=== PATIENT | female | born 1955 | race African-American/Black ===

== ENCOUNTER 2017-10-08 15:53 | Inpatient (IN) | payer OTHER, MEDICARE ==
[~2017-10-08] VITALS: Ht 180.3 cm; Wt 134.5 kg
[~2017-10-08 15:53] MED LIST: ALLO300 PO; AMBI12.5 PO; AMLO5TAB22 PO; ATEN-102 PO; BENZ100 PO; CALC0.25 PO; CYCL1PAK PO; FURO20 PO; GABA600T PO; LEVO.15 PO; NORC7.5T PO; OMEP20TA39 PO; POTA25TA2 PO; VITA100018 PO
[2017-10-08 15:55] VITALS: BP 188/78; PULSE 84; RESP 20; TEMP 98.7; O2SAT 93
[2017-10-08] MEDS ORDERED: CYCL10TA PO (16:56)
[2017-10-08] MEDS ORDERED: HYDR-2376 PO (16:56)
[2017-10-08] MEDS ORDERED: LEVO137T2 PO (16:56)
[2017-10-08] MEDS ORDERED: AMLO10TA2 PO (16:56)
[2017-10-08] MEDS ORDERED: ALLO100T PO (16:56)
[2017-10-08] MEDS ORDERED: LYRI75CA PO (16:56)
[2017-10-08] MEDS ORDERED: OMEP20TA93 PO (16:56)
[2017-10-08] MEDS ORDERED: CALC0.25 PO (16:56)
[2017-10-08] MEDS ORDERED: ZOLP10TA3 PO (16:56)
[2017-10-08] MEDS ORDERED: vitamind (16:56)
[2017-10-08] MEDS ORDERED: SODIUM CHLORIDE 0.9% FLUSH 10 ML FLUSH IVF PRN (17:00)
[2017-10-08 17:04] VITALS: O2SAT 97
--- NOTE | 2017-10-08 17:10 | PD ---
HPI Chief Complaint: Respiratory Symptoms Time Seen by Provider: 16:45 Travel History International Travel<30 days: No Contact w/Intl Traveler<30days: No Traveled to known affect area: No History of Present Illness HPI 61-year-old female here complaining of dyspnea. Symptom onset 1 week ago. It seems to be somewhat worse with exertion. No alleviating factors. She has never had this problem before. She endorses a slight cough. She endorses chronic epigastric pain which she relates to gastritis. Denies new abdominal pain, nausea or vomiting, chest pain, fevers or chills, recent travel, lower extremity edema. No other complaints. 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 Cholecystectomy: Yes (FEBRUARY 2008- DR BURNS) Endocrine Surgery: Yes (THYROIDECTOMY) Joint Replacement: Yes (RIGHT KNEE) Oral Surgery: Yes (WISDOM TEETH) Other Surgery: Yes (THYOIDECTOMY;SPLEENECTOMY) Social History Alcohol Use: No Tobacco Use: No Substance Use: No Allergies-Medications (Allergen,Severity, Reaction): Coded Allergies: doxycycline (Unverified Allergy, Severe, Anaphylaxis, 10/08/17) sulfamethoxazole (Unverified Allergy, Severe, Anaphylaxis, 10/08/17) trimethoprim (Unverified Allergy, Severe, Anaphylaxis, 10/08/17) Reported Meds & Prescriptions Reported Meds & Active Scripts Active Reported Zolpidem (Zolpidem Tartrate) 10 Mg Tab 10 Mg PO HS PRN Flexeril (Cyclobenzaprine HCl) 10 Mg Tab 10 Mg PO BID Hydrocodone-Acetaminophen 7.5-300 Mg Tab 1 Tab PO Q4H PRN Lyrica (Pregabalin) 75 Mg Cap 75 Mg PO DAILY [vitamind] Calcitriol 0.25 Mcg Cap 0.25 Mcg PO DAILY Allopurinol 100 Mg Tab 100 Mg PO DAILY Amlodipine (Amlodipine Besylate) 10 Mg Tab 10 Mg PO DAILY Levothyroxine (Levothyroxine Sodium) 137 Mcg Tab 137 Mcg PO DAILY Omeprazole 20 Mg Tab 20 Mg PO DAILY Review of Systems Except as stated in HPI: all other systems reviewed are Neg Physical Exam Narrative GENERAL: Well-nourished female in no acute distress SKIN: Warm and dry. HEAD: Atraumatic. Normocephalic. EYES: Pupils equal and round. No scleral icterus. No injection or drainage. ENT: No nasal bleeding or discharge. Mucous membranes pink and moist. NECK: Trachea midline. No JVD. CARDIOVASCULAR: Regular rate and rhythm. No murmur appreciated. RESPIRATORY: No accessory muscle use. Clear to auscultation. Breath sounds equal bilaterally. GASTROINTESTINAL: Abdomen soft, non-tender, nondistended. Hepatic and splenic margins not palpable. MUSCULOSKELETAL: No obvious deformities. Trace tibial edema bilaterally. NEUROLOGICAL: Awake and alert. No obvious cranial nerve deficits. Motor grossly within normal limits. Normal speech. PSYCHIATRIC: Appropriate mood and affect; insight and judgment normal. Data Data Last Documented VS Vital Signs Date Time Temp Pulse Resp B/P (MAP) Pulse Ox O2 Delivery O2 Flow Rate FiO2 10/08/17 17:05 84 18 97 Nasal Cannula 2.00 10/08/17 17:04 10/08/17 15:55 98.7 Orders Orders Electrocardiogram (10/08/17 ) Complete Blood Count With Diff (10/08/17 16:54) Comprehensive Metabolic Panel (10/08/17 16:54) B-Type Natriuretic Peptide (10/08/17 16:54) D-Dimer (10/08/17 16:54) Magnesium (Mg) (10/08/17 16:54) Ckmb (Isoenzyme) Profile (10/08/17 16:54) Troponin I (10/08/17 16:54) Iv Access Insert/Monitor (10/08/17 16:54) Electrocardiogram (10/08/17 16:54) Ecg Monitoring (10/08/17 16:54) Oximetry (10/08/17 16:54) Oxygen Administration (10/08/17 16:54) Chest, Single Ap (10/08/17 16:54) Sodium Chloride 0.9% Flush (Ns Flush) (10/08/17 17:00) Lipase (10/08/17 16:54) CKMB (10/08/17 17:19) CKMB% (10/08/17 17:19) Ct Pulmonary Angiogram (10/08/17 18:29) Lorazepam Inj (Ativan Inj) (10/08/17 19:00) Furosemide Inj (Lasix Inj) (10/08/17 20:15) Ceftriaxone Inj (Rocephin Inj) (10/08/17 20:15) Azithromycin Inj (Zithromax Inj) (10/08/17 20:15) Iodixanol 320 Inj (Rad Ct) (Visipaque 32 (10/08/17 19:50) Furosemide Inj (Lasix Inj) (10/08/17 20:15) Labs Laboratory Tests Test 10/08/17 17:19 10/08/17 18:15 D-Dimer Quantitative (PE/DVT) 0.95 MG/L FEU Blood Urea Nitrogen 23 MG/DL Creatinine 1.71 MG/DL Random Glucose 81 MG/DL Total Protein 9.0 GM/DL Albumin 3.1 GM/DL Calcium Level 8.6 MG/DL Magnesium Level 1.7 MG/DL Alkaline Phosphatase 99 U/L Aspartate Amino Transf (AST/SGOT) 52 U/L Alanine Aminotransferase (ALT/SGPT) 26 U/L Total Bilirubin 0.5 MG/DL Sodium Level 137 MEQ/L Potassium Level 5.8 MEQ/L Chloride Level 105 MEQ/L Carbon Dioxide Level 25.0 MEQ/L Anion Gap 7 MEQ/L Estimat Glomerular Filtration Rate 37 ML/MIN Total Creatine Kinase 242 U/L Creatine Kinase MB 0.8 NG/ML Creatine Kinase MB % 0.3 % Troponin I 0.03 NG/ML B-Type Natriuretic Peptide 221 PG/ML Lipase 117 U/L White Blood Count 15.7 TH/MM3 Red Blood Count 2.54 MIL/MM3 Hemoglobin 8.6 GM/DL Hematocrit 26.6 % Mean Corpuscular Volume 104.5 FL Mean Corpuscular Hemoglobin 34.0 PG Mean Corpuscular Hemoglobin Concent 32.5 % Red Cell Distribution Width 16.9 % Platelet Count 246 TH/MM3 Mean Platelet Volume 12.5 FL CBC Comment AUTO DIFF Differential Total Cells Counted 100 Neutrophils % (Manual) 57 % Band Neutrophils % 7 % Lymphocytes % 25 % Monocytes % 6 % Eosinophils % 2 % Basophils % 2 % Neutrophils # (Manual) 10.2 TH/MM3 Metamyelocytes 1 % Nucleated Red Blood Cells 6 /100 WBC Differential Comment FINAL DIFF MANUAL Platelet Estimate NORMAL Platelet Morphology Comment GIANT Target Cells 2+ MDM Medical Decision Making Medical Screen Exam Complete: Yes Emergency Medical Condition: Yes Medical Record Reviewed: Yes Interpretation(s) EKG sinus rhythm Chest x-ray CONCLUSION: Mild congestive heart failure suspected. Small effusions are seen. Differential Diagnosis New-onset CHF, bronchitis, pneumonia, reactive airway disease, pulmonary embolism, spontaneous pneumothorax, pericardial effusion, pleural effusion Narrative Course The patient was placed on a monitor and pulse oximetry. Twelve-lead EKG obtained. Plan is for lab work, chest x-ray. Laboratory is notable for WBC count 15.7, hemoglobin is 8.6. She reports history of chronic anemia, she reports that 8.6 is around her baseline. She denies any hematemesis, hematochezia, melena. Hemoccult negative. BNP is mildly elevated at 221. Potassium is 5.8 however this was a hemolyzed specimen and spurious result. D-dimer was 0.[address] pulmonary angiogram was ordered. CT pulmonary angiogram is suggestive of pulmonary edema. The patient's oxygen saturation is 89 and 90% on room air while conversing, 96% on 2 L of nasal cannula. At this point in time the plan is to give the patient a 20 mg IV dose of Lasix, with consideration to her kidney function. She will be given azithromycin and Rocephin as well given her leukocytosis with bandemia and cough. She will be admitted for further evaluation and treatment. Diagnosis Primary Impression: Dyspnea Qualified Codes: R06.00 - Dyspnea, unspecified Additional Impressions: Pulmonary edema Qualified Codes: J81.0 - Acute pulmonary edema Leukocytosis Qualified Codes: D72.829 - Elevated white blood cell count, unspecified Hypoxia Admitting Information Admitting Physician Requests: it Chema Hewitt Oct 08, 2017 17:10
--- NOTE | 2017-10-08 17:43 | RADRPT ---
EXAM DATE/TIME: 10/08/2017 17:15 [facility] COMPARISON: No previous studies available for comparison. INDICATIONS : Shortness of breath. MEDICAL HISTORY : None. SURGICAL HISTORY : None. ENCOUNTER: Initial ACUITY: 1 day PAIN SCORE: 0/10 LOCATION: Bilateral chest FINDINGS: There are small bilateral effusions suspected, cardiomegaly and pulmonary vasculature ominence. No co nsolidation. Aortic calcification and degenerative changes of the spine. CONCLUSION: Mild congestive heart failure suspected. Small effusions are seen. Sascha Aparicio MD on October 08, 2017 at 17:41 Board Certified Radiologist. This report was verified electronically.
[2017-10-08 18:08] LABS: ALKALINE PHOSPHATASE 99 U/L (45-117); ALT (GPT) 26 U/L (10-53); ANION GAP 7 MEQ/L (5-15); AST (GOT) 52 U/L (15-37); BLOOD UREA NITROGEN 23 MG/DL (7-18); CHLORIDE 105 MEQ/L (98-107); CREATINE KINASE 242 U/L (26-192); GLOMERULAR FILTRATION RATE 37 ML/MIN (>89); MAGNESIUM 1.7 MG/DL (1.5-2.5); POTASSIUM 5.8 MEQ/L (3.5-5.1); SODIUM (NA) 137 MEQ/L (136-145); TOTAL BILIRUBIN ADULT 0.5 MG/DL (0.2-1.0)
[2017-10-08 18:21] LABS: CKMB 0.8 NG/ML (0.5-3.6)
[2017-10-08 18:27] LABS: HEMATOCRIT 26.6 % (35.0-46.0); MEAN CELL VOLUME 104.5 FL (80.0-100.0); MEAN CORPUSCULAR HGB CONC 32.5 % (32.0-36.0); PLATELET COUNT 246 TH/MM3 (150-450); RED BLOOD COUNT 2.54 MIL/MM3 (4.00-5.30); RED CELL DISTRIBUTION WIDTH 16.9 % (11.6-17.2); WHITE BLOOD COUNT 15.7 TH/MM3 (4.0-11.0)
[2017-10-08] MEDS ORDERED: LORazepam 2 MG/ML VIAL IV PUSH ONE (19:00)
[2017-10-08 19:19] LABS: HEMO FLAGS AUTO DIFF
[2017-10-08 19:24] LABS: BANDS 7 % (0-6); BASOPHILS 2 % (0-2); CORRECTED NUCLEATED RBC 6 /100 WBC (0-0); EOSINOPHILS 2 % (0-4); METAMYELOCYTES 1 % (0-1); NEUTROPHIL # MANUAL DIFF 10.2 TH/MM3 (1.8-7.7); POLYS (SEG NEUTROPHILS) 57 % (16-70); WBC DIFF SAMPLE 100
[2017-10-08 19:25] LABS: PLATELET ESTIMATE SMEAR NORMAL (NORMAL); PLATELET MORPHOLOGY GIANT (NORMAL); SCAN/DIFF FINAL DIFF MANUAL; TARGET CELLS 2+ (NORMAL)
[2017-10-08] MEDS ORDERED: IOHEXOL 350 MG/ML 10 ML VIAL (for RAD DIAG) IVCONTRAST ONE (19:44)
[2017-10-08] MEDS ORDERED: IODIXANOL 320 MG/ML 10 ML VIAL (for Rad CT) IVCONTRAST ONE (19:50)
--- NOTE | 2017-10-08 20:00 | RADRPT ---
EXAM DATE/TIME: 10/08/2017 19:24 [facility] COMPARISON: CHEST SINGLE AP, October 08, 2017, 17:15. INDICATIONS : Shortness of breath for ten days. IV CONTRAST: 46 cc Visipaque (iodixanol) IV RADIATION DOSE: 22.98 CTDIvol (mGy) MEDICAL HISTORY : Cardiovascular disease. hodgkins disease, diabetes, hypertension SURGICAL HISTORY : Splenectomy. Thyroidectomy.Cholecystectomy. ENCOUNTER: Initial ACUITY: 1 day PAIN SCALE: 0/10 LOCATION: Bilateral chest TECHNIQUE: Volumetric scanning of the chest was performed using a pulmonary embolism protocol MIP images were re constructed. Using automated exposure control and adjustment of the mA and/or kV according to patien t size, radiation dose was kept as low as reasonably achievable to obtain optimal diagnostic quality images. DICOM format image data is available electronically for review and comparison. Follow-up recommendations for detected pulmonary nodules are based at a minimum on nodule size and pa tient risk factors according to Fleischner Society Guidelines. FINDINGS: PULMONARY ARTERIES: No filling defects are seen in the pulmonary arteries through the segmental level. LUNGS: Moderate severity bilateral pulmonary parenchymal groundglass opacity. No focal consolidation. PLEURAE: Small bilateral pleural effusions. MEDIASTINUM: There is good visualization of the great vessels of the middle mediastinum. No evidence of mediastin al or hilar adenopathy/mass. MUSCULOSKELETAL: Within normal limits for patient age. MISCELLANEOUS: The visualized upper abdominal organs demonstrate no acute abnormality. CONCLUSION: 1. No evidence of pulmonary embolus. 2. Bilateral pulmonary groundglass opacity and small bilateral pleural effusions. Prominence of centr al pulmonary vasculature. Findings suggest pulmonary edema. John Workman MD on October 08, 2017 at 19:49 Board Certified Radiologist. This report was verified electronically.
[2017-10-08] MEDS ORDERED: AZITHROMYCIN INJ 500 MG in SODIUM CHLOR 0.9% 250 ML INJ 250 ML IV ONE (20:15)
[2017-10-08] MEDS ORDERED: cefTRIAXone INJ 1,000 MG in SODIUM CHLORIDE 0.9% INJ 100 ML IV ONE (20:15)
[2017-10-08] MEDS ORDERED: FUROSEMIDE 40 MG/4 ML VIAL IV PUSH ONE (20:15)
[2017-10-08] MEDS ORDERED: FUROSEMIDE 20 MG/2 ML VIAL IV PUSH ONE (20:15)
--- NOTE | 2017-10-08 20:37 | HHI.HP ---
[facility] Hermelindo Rodriguez Do, MD Admission Diagnosis dyspnea, hypoxia, pulmonary edema, leukocytosis Diagnoses: (1) Pulmonary edema Diagnosis: Principal (2) Hypoxia Diagnosis: Principal (3) Leukocytosis Diagnosis: Principal (4) BRANDT (acute kidney injury) Diagnosis: Principal (5) HTN (hypertension) Diagnosis: Principal (6) Hyperkalemia Diagnosis: Principal (7) Anemia Diagnosis: Principal Travel History International Travel<30 Days: No Contact w/Intl Traveler <30 Da: No Traveled to Known Affected Are: No History of Present Illness This is a 61-year-old female with a PMH of HTN, Hyperlipidemia, Gout, Hodgkin's Disease in Remission, CKD and Chronic Anemia who presented to the ER w/ complaints of SOB for approx 1wk. States symptoms have gotten progressively more severe, unable to lay flat. Denies fever, chills, or chest pain but reports occasional non-productive cough. No sick contacts. On arrival, BP 188/ 78, HR 84, O2 sat 93% on RA, Afebrile. While in ER, O2 sat dropped to 89% on RA. Currently 97% on 2L NC. WBC 15.7, bandemia of 7%. Hemoglobin 8.6, previously 9.5 on 02/07/13. K+ 5.8-hemolysis noted. Creatinine 1.71, previously 1.34 on 02/07/13. Trop negative. BNP 221. Lipase 117. D-dimer 0.95. CXR with mild CHF, small effusions. CTA Pulm w/ pulmonary edma and bilateral groundglass opacity, no PE. No h/o CHF per patient. Follows only w/ PCP and Dr. Salmon w/ Nephrology. S/p Lasix 60mg IV and Rocephin/Zithro in ER. Review of Systems Except as stated in HPI: all other systems reviewed are Neg ROS: 14 point review of systems otherwise negative. Past Family Social History Past Medical History PMH: HTN, Hyperlipidemia, Gout, Hodgkin's Disease in Remission, CKD and Chronic Anemia Past Surgical History PAST SURGICAL HISTORY: Splenectomy, Thyroidectomy, Right Knee Replacement, Pratt Tooth Extraction Allergies: Coded Allergies: doxycycline (Unverified Allergy, Severe, Anaphylaxis, 10/08/17) sulfamethoxazole (Unverified Allergy, Severe, Anaphylaxis, 10/08/17) trimethoprim (Unverified Allergy, Severe, Anaphylaxis, 10/08/17) Family History PAST FAMILY HISTORY: Reviewed. No h/o DM or CAD Social History PAST SOCIAL HISTORY: Negative for alcohol, tobacco or drugs. Physical Exam Vital Signs Vital Signs Date Time Temp Pulse Resp B/P (MAP) Pulse Ox O2 Delivery O2 Flow Rate FiO2 10/08/17 17:05 84 18 97 Nasal Cannula 2.00 10/08/17 17:04 97 Nasal Cannula 2.00 10/08/17 17:04 97 Nasal Cannula 2.00 10/08/17 15:55 98.7 84 20 188/78 (114) 93 Room Air Physical Exam PE: GENERAL: Extremely pleasant middle-aged black female in no acute distress. HEENT: PERRLA, EOMI. No scleral icterus or conjunctival pallor. No lid lag or facial droop. CARDIOVASCULAR: Regular rate and rhythm. No obvious murmurs to auscultation. No chest tenderness to palpation. RESPIRATORY: No obvious rhonchi or wheezing. Clear to auscultation. Breath sounds equal bilaterally. GASTROINTESTINAL: Abdomen soft, non-tender, nondistended. BS normal. MUSCULOSKELETAL: Extremities without clubbing, cyanosis. 1+ edema bilaterally. No obvious deformities. NEUROLOGICAL: Awake, alert and oriented x4. No focal neurologic deficits. Moving both upper and lower extremities spontaneously. Laboratory Laboratory Tests Test 10/08/17 17:19 10/08/17 18:15 D-Dimer Quantitative (PE/DVT) 0.95 Blood Urea Nitrogen 23 Creatinine 1.71 Random Glucose 81 Total Protein 9.0 Albumin 3.1 Calcium Level 8.6 Magnesium Level 1.7 Alkaline Phosphatase 99 Aspartate Amino Transf (AST/SGOT) 52 Alanine Aminotransferase (ALT/SGPT) 26 Total Bilirubin 0.5 Sodium Level 137 Potassium Level 5.8 Chloride Level 105 Carbon Dioxide Level 25.0 Anion Gap 7 Estimat Glomerular Filtration Rate 37 Total Creatine Kinase 242 Creatine Kinase MB 0.8 Creatine Kinase MB % 0.3 Troponin I 0.03 B-Type Natriuretic Peptide 221 Lipase 117 White Blood Count 15.7 Red Blood Count 2.54 Hemoglobin 8.6 Hematocrit 26.6 Mean Corpuscular Volume 104.5 Mean Corpuscular Hemoglobin 34.0 Mean Corpuscular Hemoglobin Concent 32.5 Red Cell Distribution Width 16.9 Platelet Count 246 Mean Platelet Volume 12.5 CBC Comment AUTO DIFF Differential Total Cells Counted 100 Neutrophils % (Manual) 57 Band Neutrophils % 7 Lymphocytes % 25 Monocytes % 6 Eosinophils % 2 Basophils % 2 Neutrophils # (Manual) 10.2 Metamyelocytes 1 Nucleated Red Blood Cells 6 Differential Comment FINAL DIFF MANUAL Platelet Estimate NORMAL Platelet Morphology Comment GIANT Target Cells 2+ Result Diagram: 10/08/17 1815 10/08/17 1719 Caprini VTE Risk Assessment Caprini VTE Risk Assessment: Mod/High Risk (score >= 2) Caprini Risk Assessment Model Point Value = 1 Point Value = 2 Point Value = 3 Point Value = 5 Age 41-60 Minor surgery BMI > 25 kg/m2 Swollen legs Varicose veins or History of unexplained or recurrent spontaneous Oral contraceptives or hormone replacement Sepsis (< 1 month) Serious lung disease, including pneumonia (< 1 month) Abnormal pulmonary function Acute myocardial infarction Congestive heart failure (< 1 month) History of inflammatory bowel disease Medical patient at bed rest Age 61-74 Arthroscopic surgery Major open surgery (> 45 min) Laparoscopic surgery (> 45 min) Malignancy Confined to bed (> 72 hours) Immobilizing plaster cast Central venous access Age >= 75 History of VTE Family history of VTE Factor V Leiden Prothrombin [id number] Lupus anticoagulant Anticardiolipin antibodies Elevated serum homocysteine Heparin-induced thrombocytopenia Other congenital or acquired thrombophilia Stroke (< 1 month) Elective arthroplasty Hip, pelvis, or leg fracture Acute spinal cord injury (< 1 month) Prophylaxis Regimen Total Risk Factor Score Risk Level Prophylaxis Regimen 0-1 Low Early ambulation 2 Moderate Order ONE of the following: *Sequential Compression Device (SCD) *Heparin 5000 units SQ BID 3-4 Higher Order ONE of the following medications: *Heparin 5000 units SQ TID *Enoxaparin/Lovenox 40 mg SQ daily (WT < 150 kg, CrCl > 30 mL/min) *Enoxaparin/Lovenox 30 mg SQ daily (WT < 150 kg, CrCl > 10-29 mL/min) *Enoxaparin/Lovenox 30 mg SQ BID (WT < 150 kg, CrCl > 30 mL/min) AND/OR *Sequential Compression Device (SCD) 5 or more Highest Order ONE of the following medications: *Heparin 5000 units SQ TID (Preferred with Epidurals) *Enoxaparin/Lovenox 40 mg SQ daily (WT < 150 kg, CrCl > 30 mL/min) *Enoxaparin/Lovenox 30 mg SQ daily (WT < 150 kg, CrCl > 10-29 mL/min) *Enoxaparin/Lovenox 30 mg SQ BID (WT < 150 kg, CrCl > 30 mL/min) AND *Sequential Compression Device (SCD) Assessment and Plan Problem List: (1) Pulmonary edema ICD Code: J81.1 - Chronic pulmonary edema Status: Acute (2) Hypoxia ICD Code: R09.02 - Hypoxemia Status: Acute (3) Leukocytosis ICD Code: D72.829 - Elevated white blood cell count, unspecified Status: Acute (4) BRANDT (acute kidney injury) ICD Code: N17.9 - Acute kidney failure, unspecified (5) Hyperkalemia ICD Code: E87.5 - Hyperkalemia (6) HTN (hypertension) ICD Code: I10 - Essential (primary) hypertension (7) Anemia ICD Code: D64.9 - Anemia, unspecified Assessment and Plan A/P: 1. Pulmonary Edema: c/o SOB w/ orthopnea, CXR w/ bilateral effusions, d-dimer elevated, CTA Pulm negative for PE but bilateral effusions noted, images reviewed by me. No h/o CHF per patient. Check Echo. S/p Lasix IV in ER, will continue w/ diuresis-caution w/ renal function. Monitor I/O. 2. Hypoxia: O2 sat 89% on RA while in ER, +dyspnea, likely secondary to pulmonary edema and compounded by possible PNA. Monitor O2. DuoNeb prn, continue w/ diuresis/antibiotics. 3. Leukocytosis: WBC 15.7, Afebrile. CXR w/ no acute infiltrate, however in light of cough and bandemia, will continue w/ empiric treatment for PNA. S/p Rocephin/Zithro in ER, will continue. 4. HTN: BP 180's on arrival, likely compounded by SOB, resume home medications , monitor BP. 5. Hyperkalemia: K+ 5.8, hemolysis noted. Will repeat labs in am. 6. Anemia: Chronic. On Procrit prn. Hgb 8.6, previously 9.5 on 02/07/13. Repeat labs in am, follows w/ Dr. Thomson as outpatient. 7. DVT Prophylaxis: Heparin sq 8. Social work for d/c planning as needed. 9. Case discussed w/ ER physician at length. Physician Certification 2 Midnight Certification Type: Admission for Inpatient Services Order for Inpatient Services The services are ordered in accordance with Medicare regulations or non- Medicare payer requirements, as applicable. In the case of services not specified as inpatient-only, they are appropriately provided as inpatient services in accordance with the 2-midnight benchmark. Estimated LOS (days): 2 days is the estimated time the patient will need to remain in the hospital, assuming treatment plan goals are met and no additional complications. Post-Hospital Plan: Home Problem Qualifiers (1) Pulmonary edema: Qualified Codes: J81.0 - Acute pulmonary edema (2) Leukocytosis: Qualified Codes: D72.829 - Elevated white blood cell count, unspecified Elizabeth Obrien MD Oct 08, 2017 20:37
[2017-10-08] MEDS ORDERED: LACTULOSE SYRUP 20 GM/30 ML CUP PO PRN (20:45)
[2017-10-08] MEDS ORDERED: RESP: ALBUTEROL 2.5 MG/IPRATROPIUM 0.5 MG NEB (PRN) NEB (20:45)
[2017-10-08] MEDS ORDERED: BISACODYL 10 MG SUPP RECTAL PRN (20:45)
[2017-10-08] MEDS ORDERED: ONDANSETRON HCL 4 MG/2 ML VIAL IVP PRN (20:45)
[2017-10-08] MEDS ORDERED: ACETAMINOPHEN 325 MG TAB PO PRN (20:45)
[2017-10-08] MEDS ORDERED: MAGNESIUM HYDROXIDE SUSP 30 ML CUP PO PRN (20:45)
[2017-10-08] MEDS ORDERED: SENNOSIDES 8.6 MG TAB PO PRN (20:45)
[2017-10-08] MEDS ORDERED: SODIUM CHLORIDE 0.9% FLUSH 10 ML FLUSH IV FLUSH PRN (20:45)
[2017-10-08 20:50] VITALS: BP 177/77; PULSE 95; RESP 20; TEMP 97.9; O2SAT 96
[2017-10-08] MEDS: DOCUSATE SODIUM 50 MG/SENNA 8.6 MG TAB PO SCH (21:00)
[2017-10-08] MEDS: CYCLOBENZAPRINE HCL 10 MG TAB PO SCH (21:29)
[2017-10-08] MEDS: SODIUM CHLORIDE 0.9% FLUSH 10 ML FLUSH IV FLUSH SCH (21:34)
[2017-10-08 21:40] VITALS: PULSE 92
[2017-10-08] MEDS: ZOLPIDEM TARTRATE 10 MG TAB PO PRN (22:39)
[2017-10-08] MEDS: ACETAMINOPHEN/HYDROcodone 325 MG/5 MG TAB PO PRN (22:39)
[2017-10-09] VITALS: BP 124/73; PULSE 86; RESP 18; TEMP 97.9; O2SAT 94
[2017-10-09 04:00] VITALS: BP 123/60; PULSE 81; RESP 18; TEMP 97.8; O2SAT 95
[2017-10-09] MEDS: LEVOTHYROXINE SODIUM 112 MCG TAB PO SCH (05:00)
[2017-10-09] MEDS: LEVOTHYROXINE SODIUM 25 MCG TAB PO SCH (05:00)
[2017-10-09 08:00] VITALS: BP 116/56; PULSE 85; PULSE 90; RESP 20; TEMP 98.1; O2SAT 95
[2017-10-09] MEDS: ALLOPURINOL 100 MG TAB PO SCH (08:39)
[2017-10-09] MEDS: DOCUSATE SODIUM 50 MG/SENNA 8.6 MG TAB PO SCH ×2 (08:39→20:54)
[2017-10-09] MEDS: MORPHINE SULFATE 2 MG/ML INJ IV PRN ×2 (08:39→11:52)
[2017-10-09] MEDS: CYCLOBENZAPRINE HCL 10 MG TAB PO SCH ×2 (08:39→20:54)
[2017-10-09] MEDS: PREGABALIN 75 MG CAP PO SCH (08:39)
[2017-10-09] MEDS: HEPARIN SODIUM - SQ 10,000 UNITS/ML VIAL SQ SCH ×2 (08:39→20:54)
[2017-10-09] MEDS: PANTOPRAZOLE SOD 20 MG DELAYED RELEASE TAB PO SCH (08:39)
[2017-10-09] MEDS: CALCITRIOL 0.25 MCG CAP PO SCH (08:39)
[2017-10-09] MEDS: SODIUM CHLORIDE 0.9% FLUSH 10 ML FLUSH IV FLUSH SCH ×2 (08:40→20:56)
[2017-10-09 09:08] LABS: MEAN CELL VOLUME 104.1 FL (80.0-100.0); MEAN CORPUSCULAR HEMOGLOBIN 33.6 PG (27.0-34.0); MEAN CORPUSCULAR HGB CONC 32.3 % (32.0-36.0); PLATELET COUNT 224 TH/MM3 (150-450); RED CELL DISTRIBUTION WIDTH 16.5 % (11.6-17.2); WHITE BLOOD COUNT 13.8 TH/MM3 (4.0-11.0)
[2017-10-09 09:16] LABS: HEMO FLAGS AUTO DIFF
[2017-10-09] MEDS: FUROSEMIDE 40 MG/4 ML VIAL IV PUSH SCH ×2 (09:23→17:18)
[2017-10-09 09:45] LABS: ALKALINE PHOSPHATASE 81 U/L (45-117); ALT (GPT) 16 U/L (10-53); ANION GAP 7 MEQ/L (5-15); AST (GOT) 20 U/L (15-37); BICARBONATE 28.4 MEQ/L (21.0-32.0); BLOOD UREA NITROGEN 24 MG/DL (7-18); CHLORIDE 104 MEQ/L (98-107); GLOMERULAR FILTRATION RATE 39 ML/MIN (>89); POTASSIUM 4.3 MEQ/L (3.5-5.1); SODIUM (NA) 139 MEQ/L (136-145); TOTAL BILIRUBIN ADULT 0.4 MG/DL (0.2-1.0)
[2017-10-09 09:52] LABS: BANDS 12 % (0-6); BASOPHILS 3 % (0-2); CORRECTED NUCLEATED RBC 4 /100 WBC (0-0); METAMYELOCYTES 1 % (0-1); NEUTROPHIL # MANUAL DIFF 8.4 TH/MM3 (1.8-7.7); PLATELET ESTIMATE SMEAR NORMAL (NORMAL); PLATELET MORPHOLOGY ENLARGED (NORMAL); POLYS (SEG NEUTROPHILS) 48 % (16-70); TARGET CELLS 2+ (NORMAL); WBC DIFF SAMPLE 100
[2017-10-09 09:53] LABS: HOWELL-JOLLY BODIES PRESENT (NONE SEEN)
[2017-10-09 09:54] LABS: SCAN/DIFF FINAL DIFF MANUAL
[2017-10-09 11:56] VITALS: BP 127/59; PULSE 88; RESP 20; TEMP 98.1; O2SAT 95
--- NOTE | 2017-10-09 12:07 | PD.CONS ---
HPI Service Nephrology Consult Requested By Reason for Consult Hx CKD Primary Care Physician Hermelindo Rodriguez Do, MD History of Present Illness This is out 61 y/o AAF patient wit CKD 3 who came in for shortness of breath and upper abdominal pain. Her creatinine runds 1.6, GFR 38 at baseline. Her renal function has beens table this admission. Potassium elevated on arrival however it may have been a hemolyzed sample. Rechecked K level was normal. WE were consulted to assist with management. She had CT angio that was negative. She is making urine. Other PMH as listed below. She is in no distress. (Ketty Prasad) Review of Systems Respiratory: COMPLAINS OF: Shortness of breath Cardiovascular: DENIES: Chest pain, Dyspnea on Exertion, Lower Extremity Edema Gastrointestinal: COMPLAINS OF: Abdominal pain (Ketty Prasad) Past Family Social History Allergies: Coded Allergies: doxycycline (Unverified Allergy, Severe, Anaphylaxis, 10/08/17) sulfamethoxazole (Unverified Allergy, Severe, Anaphylaxis, 10/08/17) trimethoprim (Unverified Allergy, Severe, Anaphylaxis, 10/08/17) Past Medical History CKD 3, baseline creatinine 1.6, GFR 38 HTN Hyperlipidemia Gout Hodgkin's Disease in Remission Chronic Anemia Past Surgical History Splenectomy, Thyroidectomy, Right Knee Replacement, [place] Tooth Extraction Reported Medications Zolpidem (Zolpidem Tartrate) 10 Mg Tab 10 Mg PO HS PRN Flexeril (Cyclobenzaprine HCl) 10 Mg Tab 10 Mg PO BID Hydrocodone-Acetaminophen 7.5-300 Mg Tab 1 Tab PO Q4H PRN Lyrica (Pregabalin) 75 Mg Cap 75 Mg PO DAILY [vitamind] Calcitriol 0.25 Mcg Cap 0.25 Mcg PO DAILY Allopurinol 100 Mg Tab 100 Mg PO DAILY Amlodipine (Amlodipine Besylate) 10 Mg Tab 10 Mg PO DAILY Levothyroxine (Levothyroxine Sodium) 137 Mcg Tab 137 Mcg PO DAILY Omeprazole 20 Mg Tab 20 Mg PO DAILY Active Ordered Medications Current Medications Medications (Trade) Dose Ordered Sig/Francy Route Start Time Stop Time Status Last Admin (NS Flush) 2 ml UNSCH PRN IVF 10/08/17 17:00 (Duoneb Neb) 1 ampule Q4HR NEB PRN NEB 10/08/17 20:45 (NS Flush) 2 ml UNSCH PRN IV FLUSH 10/08/17 20:45 (NS Flush) 2 ml BID IV FLUSH 10/08/17 21:00 10/09/17 08:40 (Zofran Inj) 4 mg Q6H PRN IVP 10/08/17 20:45 (Heparin Inj) 5,000 units Q12H SQ 10/09/17 09:00 10/09/17 08:39 (Tylenol) 650 mg Q6H PRN PO 10/08/17 20:45 ([place] 5-325 Mg) 1 tab Q4H PRN PO 10/08/17 20:45 10/08/17 22:39 (Morphine Inj) 2 mg Q3H PRN IV 10/08/17 20:45 10/09/17 11:52 (Joyce-Colace) 1 tab BID PO 10/08/17 21:00 10/09/17 08:39 (Milk Of Magnesia Liq) 30 ml Q12H PRN PO 10/08/17 20:45 (Senokot) 17.2 mg Q12H PRN PO 10/08/17 20:45 (Dulcolax Supp) 10 mg DAILY PRN RECTAL 10/08/17 20:45 (Lactulose Liq) 30 ml DAILY PRN PO 10/08/17 20:45 Ceftriaxone Sodium 1000 mg/ Sodium Chloride 100 ml @ 200 mls/hr Q24H IV 10/09/17 21:00 Azithromycin 500 mg/Sodium Chloride 250 ml @ 250 mls/hr Q24H IV 10/09/17 21:00 (Zyloprim) 100 mg DAILY PO 10/09/17 09:00 10/09/17 08:39 (Norvasc) 10 mg DAILY PO 10/09/17 09:00 10/09/17 08:39 (Rocaltrol) 0.25 mcg DAILY PO 10/09/17 09:00 10/09/17 08:39 (Flexeril) 10 mg BID PO 10/08/17 21:00 10/09/17 08:39 (Lyrica) 75 mg DAILY PO 10/09/17 09:00 10/09/17 08:39 (Ambien) 10 mg HS PRN PO 10/08/17 20:45 10/08/17 22:39 (Synthroid) 112 mcg DAILY@0600 PO 10/09/17 06:00 10/09/17 05:00 (Protonix) 20 mg DAILY PO 10/09/17 09:00 10/09/17 08:39 (Synthroid) 25 mcg DAILY@0600 PO 10/09/17 06:00 10/09/17 05:00 (Lasix Inj) 40 mg BID@09,18 IV PUSH 10/09/17 09:00 10/09/17 09:23 Family History No hx of renal disorders Social History Non smoker Ambulatory full code She is unemployed (Ketty Prasad) Physical Exam Vital Signs Vital Signs Date Time Temp Pulse Resp B/P (MAP) Pulse Ox O2 Delivery O2 Flow Rate FiO2 10/09/17 11:56 98.1 88 20 127/59 (81) 95 10/09/17 08:00 90 10/09/17 08:00 Nasal Cannula 2.00 10/09/17 08:00 98.1 85 20 116/56 (76) 95 10/09/17 04:00 97.8 81 18 123/60 (81) 95 10/09/17 00:00 Nasal Cannula 2.00 10/09/17 00:00 97.9 86 18 124/73 (90) 94 10/08/17 21:40 92 10/08/17 21:20 Nasal Cannula 1.00 10/08/17 21:16 10/08/17 20:50 97.9 95 20 177/77 (110) 96 10/08/17 17:05 84 18 97 Nasal Cannula 2.00 10/08/17 17:04 97 Nasal Cannula 2.00 10/08/17 17:04 97 Nasal Cannula 2.00 10/08/17 15:55 98.7 84 20 188/78 (114) 93 Room Air Physical Exam GENERAL: Obese, Well-nourished female in no acute distress SKIN: Warm and dry. HEAD: Atraumatic. Normocephalic. EYES: Pupils equal and round. No scleral icterus. No injection or drainage. ENT: No nasal bleeding or discharge. Mucous membranes pink and moist. NECK: Trachea midline. No JVD. CARDIOVASCULAR: Regular rate and rhythm. No murmur appreciated. RESPIRATORY: No accessory muscle use. Clear to auscultation. Breath sounds equal bilaterally. GASTROINTESTINAL: Abdomen soft, non-tender, nondistended. Hepatic and splenic margins not palpable. MUSCULOSKELETAL: No obvious deformities. Trace tibial edema bilaterally. NEUROLOGICAL: Awake and alert. No obvious cranial nerve deficits. Motor grossly within normal limits. Normal speech. PSYCHIATRIC: Appropriate mood and affect; insight and judgment normal. Laboratory Laboratory Tests Test 10/08/17 17:19 10/08/17 18:15 10/09/17 08:50 D-Dimer Quantitative (PE/DVT) 0.95 Blood Urea Nitrogen 23 24 Creatinine 1.71 1.63 Random Glucose 81 89 Total Protein 9.0 7.9 Albumin 3.1 2.8 Calcium Level 8.6 8.7 Magnesium Level 1.7 Alkaline Phosphatase 99 81 Aspartate Amino Transf (AST/SGOT) 52 20 Alanine Aminotransferase (ALT/SGPT) 26 16 Total Bilirubin 0.5 0.4 Sodium Level 137 139 Potassium Level 5.8 4.3 Chloride Level 105 104 Carbon Dioxide Level 25.0 28.4 Anion Gap 7 7 Estimat Glomerular Filtration Rate 37 39 Total Creatine Kinase 242 Creatine Kinase MB 0.8 Creatine Kinase MB % 0.3 Troponin I 0.03 B-Type Natriuretic Peptide 221 Lipase 117 White Blood Count 15.7 13.8 Red Blood Count 2.54 2.40 Hemoglobin 8.6 8.1 Hematocrit 26.6 25.0 Mean Corpuscular Volume 104.5 104.1 Mean Corpuscular Hemoglobin 34.0 33.6 Mean Corpuscular Hemoglobin Concent 32.5 32.3 Red Cell Distribution Width 16.9 16.5 Platelet Count 246 224 Mean Platelet Volume 12.5 12.2 CBC Comment AUTO DIFF AUTO DIFF Differential Total Cells Counted 100 100 Neutrophils % (Manual) 57 48 Band Neutrophils % 7 12 Lymphocytes % 25 31 Monocytes % 6 5 Eosinophils % 2 Basophils % 2 3 Neutrophils # (Manual) 10.2 8.4 Metamyelocytes 1 1 Nucleated Red Blood Cells 6 4 Differential Comment FINAL DIFF MANUAL FINAL DIFF MANUAL Platelet Estimate NORMAL NORMAL Platelet Morphology Comment GIANT ENLARGED Target Cells 2+ 2+ [employer] Bodies PRESENT (Ketty Prasad) Result Diagram: 10/09/17 0850 10/09/17 [address] Angiography 10/08/17 6264 Signed Impressions: Service Date/Time: Sunday, October 08, 2017 19:24 - CONCLUSION: 1. No evidence of pulmonary embolus. 2. Bilateral pulmonary groundglass opacity and small bilateral pleural effusions. Prominence of central pulmonary vasculature. Findings suggest pulmonary edema. John Workman MD Chest X-Ray 10/08/17 3372 Signed Impressions: Service Date/Time: Sunday, October 08, 2017 17:15 - CONCLUSION: Mild congestive heart failure suspected. Small effusions are seen. Sascha Aparicio MD (Ketty Prasad) Assessment and Plan Problem List: (1) CKD (chronic kidney disease) ICD Codes: N18.9 - Chronic kidney disease, unspecified Plan: Her renal function is stable, at baseline No acute electrolyte disorders\ She is non oliguric At this time adequate water intake was encouraged We will be happy to follow her in our CKD clinic Avoid IVF, nephrotoxic agent (2) SOB (shortness of breath) ICD Codes: R06.02 - Shortness of breath Plan: Improved, monitor She is not on oxygen (3) Hyperkalemia ICD Codes: E87.5 - Hyperkalemia Plan: May have been hemolyzed sample Repeat has improved (4) HTN (hypertension) ICD Codes: I10 - Essential (primary) hypertension Plan: Blood pressure is stable Continue present medications Assessment and Plan She is cleared for discharge from renal perspective (Ketty Prasad) Assessment and Plan patient was seen and examined. Agree with above assessment and plan. Renal function at baseline. Lasix can be changed to PO. (Jared Huynh MD) Ketty Prasad Oct 09, 2017 12:07 Jared Huynh MD Oct 10, 2017 10:20
--- NOTE | 2017-10-09 12:25 | HHI.PR ---
Subjective Remarks Follow-up for pulmonary edema. Patient stated that she has shortness of breathing. She denies any chest pain, palpitation, leg and his dizziness. She stated that she was taken off her Lasix about one year ago. Patient denies any change in diet. She stated that she does have intermittent lower extremity edema that has been normal for her. Deny any other complaints. Patient states she is very anxious to go home before Thanksgiving. Objective Vitals Vital Signs Date Time Temp Pulse Resp B/P (MAP) Pulse Ox O2 Delivery O2 Flow Rate FiO2 10/09/17 11:56 98.1 88 20 127/59 (81) 95 10/09/17 08:00 90 10/09/17 08:00 Nasal Cannula 2.00 10/09/17 08:00 98.1 85 20 116/56 (76) 95 10/09/17 04:00 97.8 81 18 123/60 (81) 95 10/09/17 00:00 Nasal Cannula 2.00 10/09/17 00:00 97.9 86 18 124/73 (90) 94 10/08/17 21:40 92 10/08/17 21:20 Nasal Cannula 1.00 10/08/17 21:16 10/08/17 20:50 97.9 95 20 177/77 (110) 96 10/08/17 17:05 84 18 97 Nasal Cannula 2.00 10/08/17 17:04 97 Nasal Cannula 2.00 10/08/17 17:04 97 Nasal Cannula 2.00 10/08/17 15:55 98.7 84 20 188/78 (114) 93 Room Air I/O 10/08/17 10/08/17 10/08/17 10/09/17 10/09/17 10/09/17 07:00 15:00 23:00 07:00 15:00 23:00 Intake Total 250 ml 240 ml Output Total 1000 ml Balance 250 ml -760 ml Intake Oral 240 ml IV Total 250 ml Output Urine Total 1000 ml # Bowel Movements 1 Result Diagram: 10/09/17 0850 10/09/17 0850 Imaging Current Medications Sodium Chloride (NS Flush) 2 ml UNSCH PRN IVF FLUSH AFTER USING IV ACCESS; Start 10/08/17 at 17:00 Lorazepam (Ativan Inj) 1 mg ONCE ONCE IV PUSH Last administered on 10/08/17 19:11; Start 10/08/17 at 19:00; Stop 10/08/17 at 19:01; Status DC Iohexol (Omnipaque 350 Inj) 46 ml STK-MED ONCE IVCONTRAST ; Start 10/08/17 at 19:44; Stop 10/08/17 at 19:45; Status Cancel Furosemide (Lasix Inj) 40 mg ONCE ONCE IV PUSH ; Start 10/08/17 at 20:15; Stop 10/08/17 at 20:15; Status DC Ceftriaxone Sodium 1000 mg/ Sodium Chloride 100 ml @ 200 mls/hr ONCE ONCE IV Last administered on 10/08/17 20:37; Start 10/08/17 at 20:15; Stop 10/08/17 at 20:44; Status DC Azithromycin 500 mg/Sodium Chloride 250 ml @ 250 mls/hr ONCE ONCE IV Last administered on 10/08/17 21:33; Start 10/08/17 at 20:15; Stop 10/08/17 at 21 :14; Status DC Iodixanol (VISIPAQUE 320 INJ (Rad CT)) 46 ml STK-MED ONCE IVCONTRAST Last administered on 10/08/17 19:50; Start 10/08/17 at 19:50; Stop 10/08/17 at 20 :06; Status DC Furosemide (Lasix Inj) 20 mg ONCE ONCE IV PUSH Last administered on 20:36; Start 10/08/17 at 20:15; Stop 10/08/17 at 20:16; Status DC Albuterol/ Ipratropium (Duoneb Neb) 1 ampule Q4HR NEB PRN NEB SOB/WHEEZING; Start 10/08/17 at 20:45 Sodium Chloride (NS Flush) 2 ml UNSCH PRN IV FLUSH FLUSH AFTER USING IV ACCESS ; Start 10/08/17 at 20:45 Sodium Chloride (NS Flush) 2 ml BID IV FLUSH Last administered on 10/09/17 08 :40; Start 10/08/17 at 21:00 Ondansetron HCl (Zofran Inj) 4 mg Q6H PRN IVP NAUSEA OR VOMITING; Start at 20:45 Heparin Sodium (Porcine) (Heparin Inj) 5,000 units Q12H SQ Last administered on 10/09/17 08:39; Start 10/09/17 at 09:00 Acetaminophen (Tylenol) 650 mg Q6H PRN PO FEVER/PAIN SCALE 1 TO 2; Start 10/08 at 20:45 Acetaminophen/ Hydrocodone Bitart ([place] 5-325 Mg) 1 tab Q4H PRN PO PAIN SCALE 3 TO 5 Last administered on 10/08/17 22:39; Start 10/08/17 at 20:45 Morphine Sulfate (Morphine Inj) 2 mg Q3H PRN IV PAIN 6-10 Last administered on 10/09/17 11:52; Start 10/08/17 at 20:45 Senna/Docusate Sodium (Joyce-Colace) 1 tab BID PO Last administered on 08:39; Start 10/08/17 at 21:00 Magnesium Hydroxide (Milk Of Magnesia Liq) 30 ml Q12H PRN PO Mild constipation ; Start 10/08/17 at 20:45 Sennosides (Senokot) 17.2 mg Q12H PRN PO Moderate constipation; Start at 20:45 Bisacodyl (Dulcolax Supp) 10 mg DAILY PRN RECTAL SEVERE CONSITIPATION; Start 10/08/17 at 20:45 Lactulose (Lactulose Liq) 30 ml DAILY PRN PO SEVERE CONSITIPATION; Start 10/08 at 20:45 Ceftriaxone Sodium 1000 mg/ Sodium Chloride 100 ml @ 200 mls/hr Q24H IV ; Start 10/09/17 at 21:00 Azithromycin 500 mg/Sodium Chloride 250 ml @ 250 mls/hr Q24H IV ; Start at 21:00 Allopurinol (Zyloprim) 100 mg DAILY PO Last administered on 10/09/17 08:39; Start 10/09/17 at 09:00 Amlodipine Besylate (Norvasc) 10 mg DAILY PO Last administered on 10/09/17 08 :39; Start 10/09/17 at 09:00 Calcitriol (Rocaltrol) 0.25 mcg DAILY PO Last administered on 10/09/17 08:39 ; Start 10/09/17 at 09:00 Cyclobenzaprine HCl (Flexeril) 10 mg BID PO Last administered on 10/09/17 08: 39; Start 10/08/17 at 21:00 Pregabalin (Lyrica) 75 mg DAILY PO Last administered on 10/09/17 08:39; Start 10/09/17 at 09:00 Zolpidem Tartrate (Ambien) 10 mg HS PRN PO INSOMNIA Last administered on 22:39; Start 10/08/17 at 20:45 Levothyroxine Sodium (Synthroid) 112 mcg DAILY@0600 PO Last administered on 05:00; Start 10/09/17 at 06:00 Pantoprazole Sodium (Protonix) 20 mg DAILY PO Last administered on 10/09/17 08:39; Start 10/09/17 at 09:00 Levothyroxine Sodium (Synthroid) 25 mcg DAILY@0600 PO Last administered on 05:00; Start 10/09/17 at 06:00 Furosemide (Lasix Inj) 40 mg BID@09,18 IV PUSH Last administered on 10/09/17 09:23; Start 10/09/17 at 09:00 Objective Remarks GENERAL: in NAD CARDIOVASCULAR: Regular rate and rhythm without murmurs, gallops, or rubs. RESPIRATORY: Bilateral basilar crackles. No accessory muscle use. GASTROINTESTINAL: Abdomen soft, non-tender, nondistended. MUSCULOSKELETAL: No cyanosis, or edema. BACK: Nontender without obvious deformity. No CVA tenderness. Medications and IVs Current Medications Sodium Chloride (NS Flush) 2 ml UNSCH PRN IVF FLUSH AFTER USING IV ACCESS; Start 10/08/17 at 17:00 Lorazepam (Ativan Inj) 1 mg ONCE ONCE IV PUSH Last administered on 10/08/17 19:11; Start 10/08/17 at 19:00; Stop 10/08/17 at 19:01; Status DC Iohexol (Omnipaque 350 Inj) 46 ml STK-MED ONCE IVCONTRAST ; Start 10/08/17 at 19:44; Stop 10/08/17 at 19:45; Status Cancel Furosemide (Lasix Inj) 40 mg ONCE ONCE IV PUSH ; Start 10/08/17 at 20:15; Stop 10/08/17 at 20:15; Status DC Ceftriaxone Sodium 1000 mg/ Sodium Chloride 100 ml @ 200 mls/hr ONCE ONCE IV Last administered on 10/08/17 20:37; Start 10/08/17 at 20:15; Stop 10/08/17 at 20:44; Status DC Azithromycin 500 mg/Sodium Chloride 250 ml @ 250 mls/hr ONCE ONCE IV Last administered on 10/08/17 21:33; Start 10/08/17 at 20:15; Stop 10/08/17 at 21 :14; Status DC Iodixanol (VISIPAQUE 320 INJ (Rad CT)) 46 ml STK-MED ONCE IVCONTRAST Last administered on 10/08/17 19:50; Start 10/08/17 at 19:50; Stop 10/08/17 at 20 :06; Status DC Furosemide (Lasix Inj) 20 mg ONCE ONCE IV PUSH Last administered on 20:36; Start 10/08/17 at 20:15; Stop 10/08/17 at 20:16; Status DC Albuterol/ Ipratropium (Duoneb Neb) 1 ampule Q4HR NEB PRN NEB SOB/WHEEZING; Start 10/08/17 at 20:45 Sodium Chloride (NS Flush) 2 ml UNSCH PRN IV FLUSH FLUSH AFTER USING IV ACCESS ; Start 10/08/17 at 20:45 Sodium Chloride (NS Flush) 2 ml BID IV FLUSH Last administered on 10/09/17 08 :40; Start 10/08/17 at 21:00 Ondansetron HCl (Zofran Inj) 4 mg Q6H PRN IVP NAUSEA OR VOMITING; Start at 20:45 Heparin Sodium (Porcine) (Heparin Inj) 5,000 units Q12H SQ Last administered on 10/09/17 08:39; Start 10/09/17 at 09:00 Acetaminophen (Tylenol) 650 mg Q6H PRN PO FEVER/PAIN SCALE 1 TO 2; Start 10/08 at 20:45 Acetaminophen/ Hydrocodone Bitart ([place] 5-325 Mg) 1 tab Q4H PRN PO PAIN SCALE 3 TO 5 Last administered on 10/08/17 22:39; Start 10/08/17 at 20:45 Morphine Sulfate (Morphine Inj) 2 mg Q3H PRN IV PAIN 6-10 Last administered on 10/09/17 11:52; Start 10/08/17 at 20:45 Senna/Docusate Sodium (Joyce-Colace) 1 tab BID PO Last administered on 08:39; Start 10/08/17 at 21:00 Magnesium Hydroxide (Milk Of Magnesia Liq) 30 ml Q12H PRN PO Mild constipation ; Start 10/08/17 at 20:45 Sennosides (Senokot) 17.2 mg Q12H PRN PO Moderate constipation; Start at 20:45 Bisacodyl (Dulcolax Supp) 10 mg DAILY PRN RECTAL SEVERE CONSITIPATION; Start 10/08/17 at 20:45 Lactulose (Lactulose Liq) 30 ml DAILY PRN PO SEVERE CONSITIPATION; Start 10/08 at 20:45 Ceftriaxone Sodium 1000 mg/ Sodium Chloride 100 ml @ 200 mls/hr Q24H IV ; Start 10/09/17 at 21:00 Azithromycin 500 mg/Sodium Chloride 250 ml @ 250 mls/hr Q24H IV ; Start at 21:00 Allopurinol (Zyloprim) 100 mg DAILY PO Last administered on 10/09/17 08:39; Start 10/09/17 at 09:00 Amlodipine Besylate (Norvasc) 10 mg DAILY PO Last administered on 10/09/17 08 :39; Start 10/09/17 at 09:00 Calcitriol (Rocaltrol) 0.25 mcg DAILY PO Last administered on 10/09/17 08:39 ; Start 10/09/17 at 09:00 Cyclobenzaprine HCl (Flexeril) 10 mg BID PO Last administered on 10/09/17 08: 39; Start 10/08/17 at 21:00 Pregabalin (Lyrica) 75 mg DAILY PO Last administered on 10/09/17 08:39; Start 10/09/17 at 09:00 Zolpidem Tartrate (Ambien) 10 mg HS PRN PO INSOMNIA Last administered on 22:39; Start 10/08/17 at 20:45 Levothyroxine Sodium (Synthroid) 112 mcg DAILY@0600 PO Last administered on 05:00; Start 10/09/17 at 06:00 Pantoprazole Sodium (Protonix) 20 mg DAILY PO Last administered on 10/09/17 08:39; Start 10/09/17 at 09:00 Levothyroxine Sodium (Synthroid) 25 mcg DAILY@0600 PO Last administered on 05:00; Start 10/09/17 at 06:00 Furosemide (Lasix Inj) 40 mg BID@09,18 IV PUSH Last administered on 10/09/17 09:23; Start 10/09/17 at 09:00 A/P Problem List: (1) Pulmonary edema ICD Code: J81.1 - Chronic pulmonary edema Status: Acute (2) Hypoxia ICD Code: R09.02 - Hypoxemia Status: Acute (3) Leukocytosis ICD Code: D72.829 - Elevated white blood cell count, unspecified Status: Acute (4) BRANDT (acute kidney injury) ICD Code: N17.9 - Acute kidney failure, unspecified (5) Hyperkalemia ICD Code: E87.5 - Hyperkalemia (6) HTN (hypertension) ICD Code: I10 - Essential (primary) hypertension (7) Anemia ICD Code: D64.9 - Anemia, unspecified Assessment and Plan This is a 59-year-old female presented with shortness of breathing Pulmonary Edema: - c/o SOB w/ orthopnea, CXR w/ bilateral effusions, d-dimer elevated, CTA Pulm negative for PE but bilateral effusions noted. No h/o CHF per patient but she was on Lasix in the past due to lower extremity edema. First troponin negative. Will trend. -Pending echo. -continue Lasix and try to wean oxygen as tolerated. Strict ins and outs. Acute respiratory failure with Hypoxia: O2 sat 89% on RA while in ER, +dyspnea , likely secondary to pulmonary edema. -Monitor O2. DuoNeb prn, -Most likely secondary to pulmonary edema. -Patient treated empirically for pneumonia due to elevated white count. Leukocytosis: -WBC 15.7, Afebrile. CXR w/ no acute infiltrate, however in light of cough and bandemia, will continue w/ empiric treatment for PNA. S/p Rocephin/Zithro in ER , will continue. -Improving. Continue to trend. HTN: - BP 180's on arrival, likely compounded by SOB, resume home medications, monitor BP. -Continue home medication. Hyperkalemia: -+ 5.8, hemolysis noted. -Resolved. Anemia: Chronic. - On Procrit prn. Hgb 8.6, previously 9.5 on 02/07/13. - follows w/ Dr. Thomson as outpatient. DVT Prophylaxis: Heparin sq Problem Qualifiers (1) Pulmonary edema: Qualified Codes: J81.0 - Acute pulmonary edema (2) Leukocytosis: Qualified Codes: D72.829 - Elevated white blood cell count, unspecified Marichuy Monaco MD Oct 09, 2017 12:25
[2017-10-09 16:00] VITALS: BP 132/64; PULSE 86; RESP 20; TEMP 97.9; O2SAT 96
--- NOTE | 2017-10-09 16:18 | EKG ---
Date Performed: 10/08/2017 Time Performed: 16:51:41 PTAGE: 61 years EKG: Sinus rhythm NONSPECIFIC T-WAVE ABNORMALITY Compared to prior tracing no significant change BORDERLINE ECG PREVIOUS TRACING : 03/13/2008 11.23 DOCTOR: Panda Goldsmith Interpretating Date/Time 10/09/2017 16:17:25
[2017-10-09 20:00] VITALS: BP 165/13; PULSE 99; RESP 18; TEMP 97.7; O2SAT 96
[2017-10-09] MEDS: cefTRIAXone INJ 1,000 MG in SODIUM CHLORIDE 0.9% INJ 100 ML IV SCH (20:55)
[2017-10-09] MEDS: AZITHROMYCIN INJ 500 MG in SODIUM CHLOR 0.9% 250 ML INJ 250 ML IV SCH (20:56)
[2017-10-09] MEDS: ZOLPIDEM TARTRATE 10 MG TAB PO PRN (23:55)
[2017-10-09] MEDS: ACETAMINOPHEN/HYDROcodone 325 MG/5 MG TAB PO PRN (23:57)
[2017-10-10] VITALS (8 sets, daily range): BP systolic 107–135; BP diastolic 53–63; PULSE 91–98; RESP 17–20; TEMP 97.7–98.6; O2SAT 90–97
[2017-10-10] MEDS: LEVOTHYROXINE SODIUM 25 MCG TAB PO SCH (05:20)
[2017-10-10] MEDS: LEVOTHYROXINE SODIUM 112 MCG TAB PO SCH (05:20)
[2017-10-10 06:57] LABS: MEAN CELL VOLUME 103.4 FL (80.0-100.0); MEAN CORPUSCULAR HEMOGLOBIN 33.6 PG (27.0-34.0); MEAN CORPUSCULAR HGB CONC 32.5 % (32.0-36.0); PLATELET COUNT 218 TH/MM3 (150-450); RED BLOOD COUNT 2.32 MIL/MM3 (4.00-5.30); RED CELL DISTRIBUTION WIDTH 16.3 % (11.6-17.2); WHITE BLOOD COUNT 12.2 TH/MM3 (4.0-11.0)
[2017-10-10 06:58] LABS: REVIEW FLAG FINAL
[2017-10-10 07:33] LABS: BICARBONATE 29.8 MEQ/L (21.0-32.0); POTASSIUM 4.5 MEQ/L (3.5-5.1)
[2017-10-10] MEDS: PANTOPRAZOLE SOD 20 MG DELAYED RELEASE TAB PO SCH (10:06)
[2017-10-10] MEDS: FUROSEMIDE 40 MG/4 ML VIAL IV PUSH SCH (10:06)
[2017-10-10] MEDS: HEPARIN SODIUM - SQ 10,000 UNITS/ML VIAL SQ SCH ×2 (10:08→20:21)
[2017-10-10] MEDS: PREGABALIN 75 MG CAP PO SCH (10:09)
[2017-10-10] MEDS: CALCITRIOL 0.25 MCG CAP PO SCH (10:09)
[2017-10-10] MEDS: DOCUSATE SODIUM 50 MG/SENNA 8.6 MG TAB PO SCH ×2 (10:10→20:20)
[2017-10-10] MEDS: CYCLOBENZAPRINE HCL 10 MG TAB PO SCH ×2 (10:10→20:20)
[2017-10-10] MEDS: ALLOPURINOL 100 MG TAB PO SCH (10:10)
[2017-10-10] MEDS: MORPHINE SULFATE 2 MG/ML INJ IV PRN (11:02)
[2017-10-10] MEDS: SODIUM CHLORIDE 0.9% FLUSH 10 ML FLUSH IV FLUSH SCH ×2 (11:03→20:10)
--- NOTE | 2017-10-10 11:26 | HHI.NPPN ---
Subjective Renal Failure: Chronic, Acute Interval History Ambulatory to bathroom without incident. Renal function is slightly elevated today. No complaints. (Ketty Prasad) Objective Data Data Vital Signs Date Time Temp Pulse Resp B/P (MAP) Pulse Ox O2 Delivery O2 Flow Rate FiO2 10/10/17 08:00 97.7 92 18 119/59 (79) 95 10/10/17 04:00 97.9 95 18 124/60 (81) 93 10/10/17 00:00 18 10/10/17 00:00 98.1 94 18 125/58 (80) 90 10/09/17 20:00 97.7 99 18 165/13 (63) 96 10/09/17 20:00 Nasal Cannula 2.00 10/09/17 16:00 97.9 86 20 132/64 (86) 96 10/09/17 11:56 98.1 88 20 127/59 (81) 95 (Ketty Prasad) -: 10/10/17 0625 10/10/17 [address] Angiography 10/08/17 1829 Signed Impressions: Service Date/Time: Sunday, October 08, 2017 19:24 - CONCLUSION: 1. No evidence of pulmonary embolus. 2. Bilateral pulmonary groundglass opacity and small bilateral pleural effusions. Prominence of central pulmonary vasculature. Findings suggest pulmonary edema. John Workman MD Chest X-Ray 10/08/17 1654 Signed Impressions: Service Date/Time: Sunday, October 08, 2017 17:15 - CONCLUSION: Mild congestive heart failure suspected. Small effusions are seen. Sascha Aparicio MD (Ketty Prasad) Physical Exam General Appearance: Well Developed, Well Nourished, Comfortable, Obese (Ketty Prasad) Eyes Eye Exam: Pupils Equal (Ketty Prasad) Neck Neck Exam: Neck Supple (Ketty Prasad) Pulmonary Resp Exam: Clear Bilaterally, Breath Sounds Equal (Ketty Prasad) Cardiology CV Exam: Regular, Normal Sinus Rhythm (Ketty Prasad) Gastrointestinal/Abdomen GI Exam: Soft, Non-Tender, Bowel Sounds Present (Ketty Prasad) Musculoskeletal MS Exam: Joints Intact, Normal Tone (Ketty Prasad) Integumentary Skin Exam: Clear, Warm, Dry, Intact (Ketty Prasad) Extremeties Extremities Exam: Pedal Pulses Palpable, Trace Edema (Ketty Prasad) Neurologic Neuro Exam: Alert, Awake, Oriented, Speech Clear, Moving All Extremities (Ketty Prasad) Psychiatric Psych Exam: Appropriate Responses (Ketty Prasad) Assessment/Plan Discussed Condition With: Patient, Spouse Assessment Summary: Hypertension, CKD Stage III Problem List: (1) CKD (chronic kidney disease) ICD Codes: N18.9 - Chronic kidney disease, unspecified Plan: Her renal function was at baseline on admission Creatinine is slightly worse today; the decline may be due to CT angio that was done two days ago No acute electrolyte disorders She is stable, we will follow her in CKD clinic if discharged She is non oliguric At this time adequate water intake was encouraged Avoid IVF, nephrotoxic agent (2) SOB (shortness of breath) ICD Codes: R06.02 - Shortness of breath Plan: Improved, monitor She is not on oxygen On Rocephin and Zithromax for empiric treatment (3) Hyperkalemia ICD Codes: E87.5 - Hyperkalemia Plan: Improved, was lab error apparently (4) HTN (hypertension) ICD Codes: I10 - Essential (primary) hypertension Plan: Blood pressure is stable Continue present medications Plan Cleared for discharge if other physicians agree (Ketty Prasad) Plan patient was seen and examined. On 2 liters of oxygen by SC. Not on oxygen at home. On exam, she has bilateral rhonchi. Creatinine is higher, could be due to contrast nephropathy. I have changed Furosemide to PO. Echo ordered, is pending. If discharged, order BMP for next week. We will see her in our office. (Jared Huynh MD) Ketty Prasad Oct 10, 2017 11:26 Jared Huynh MD Oct 10, 2017 11:50
[2017-10-10] MEDS ORDERED: OXYGENDME NAS.CANULA (13:35)
--- NOTE | 2017-10-10 13:40 | HHI.PR ---
Subjective Remarks f/u respiratory failure and pulmonary edema Patient stated breathing is improved. Has been at bedside during the interview. Continues to have shortness of breath but improved. Denying cough. Objective Vitals Vital Signs Date Time Temp Pulse Resp B/P (MAP) Pulse Ox O2 Delivery O2 Flow Rate FiO2 10/10/17 12:00 93 Nasal Cannula 2.00 10/10/17 11:59 2.00 10/10/17 11:07 18 10/10/17 09:00 Nasal Cannula 2.00 10/10/17 08:00 97.7 92 18 119/59 (79) 95 10/10/17 04:00 97.9 95 18 124/60 (81) 93 10/10/17 00:00 18 10/10/17 00:00 98.1 94 18 125/58 (80) 90 10/09/17 20:00 97.7 99 18 165/13 (63) 96 10/09/17 20:00 Nasal Cannula 2.00 10/09/17 16:00 97.9 86 20 132/64 (86) 96 I/O 10/09/17 10/09/17 10/09/17 10/10/17 10/10/17 10/10/17 07:00 15:00 23:00 07:00 15:00 23:00 Intake Total 240 ml 720 ml 460 ml Output Total 1000 ml 1300 ml 2000 ml Balance -760 ml -580 ml -1540 ml Intake Oral 240 ml 720 ml 460 ml Output Urine Total 1000 ml 1300 ml 2000 ml # Voids 1 # Bowel Movements 1 1 Result Diagram: 10/10/1762410/10/17 0625 Objective Remarks GENERAL: in NAD CARDIOVASCULAR: Regular rate and rhythm without murmurs, gallops, or rubs. RESPIRATORY: Bilateral basilar crackles. No accessory muscle use. GASTROINTESTINAL: Abdomen soft, non-tender, nondistended. MUSCULOSKELETAL: No cyanosis, or edema. BACK: Nontender without obvious deformity. No CVA tenderness. Medications and IVs Current Medications Sodium Chloride (NS Flush) 2 ml UNSCH PRN IVF FLUSH AFTER USING IV ACCESS; Start 10/08/17 at 17:00 Lorazepam (Ativan Inj) 1 mg ONCE ONCE IV PUSH Last administered on 10/08/17t 19:11; Start 10/08/17 at 19:00; Stop 10/08/17 at 19:01; Status DC Iohexol (Omnipaque 350 Inj) 46 ml STK-MED ONCE IVCONTRAST ; Start 10/08/17 at 19:44; Stop 10/08/17 at 19:45; Status Cancel Furosemide (Lasix Inj) 40 mg ONCE ONCE IV PUSH ; Start 10/08/17 at 20:15; Stop 10/08/17 at 20:15; Status DC Ceftriaxone Sodium 1000 mg/ Sodium Chloride 100 ml @ 200 mls/hr ONCE ONCE IV Last administered on 10/08/17 20:37; Start 10/08/17 at 20:15; Stop 10/08/17 at 20:44; Status DC Azithromycin 500 mg/Sodium Chloride 250 ml @ 250 mls/hr ONCE ONCE IV Last administered on 10/08/17 21:33; Start 10/08/17 at 20:15; Stop 10/08/17 at 21 :14; Status DC Iodixanol (VISIPAQUE 320 INJ (Rad CT)) 46 ml STK-MED ONCE IVCONTRAST Last administered on 10/08/17 19:50; Start 10/08/17 at 19:50; Stop 10/08/17 at 20 :06; Status DC Furosemide (Lasix Inj) 20 mg ONCE ONCE IV PUSH Last administered on 20:36; Start 10/08/17 at 20:15; Stop 10/08/17 at 20:16; Status DC Albuterol/ Ipratropium (Duoneb Neb) 1 ampule Q4HR NEB PRN NEB SOB/WHEEZING; Start 10/08/17 at 20:45 Sodium Chloride (NS Flush) 2 ml UNSCH PRN IV FLUSH FLUSH AFTER USING IV ACCESS ; Start 10/08/17 at 20:45 Sodium Chloride (NS Flush) 2 ml BID IV FLUSH Last administered on 10/10/17 11 :03; Start 10/08/17 at 21:00 Ondansetron HCl (Zofran Inj) 4 mg Q6H PRN IVP NAUSEA OR VOMITING; Start at 20:45 Heparin Sodium (Porcine) (Heparin Inj) 5,000 units Q12H SQ Last administered on 10/10/17 10:08; Start 10/09/17 at 09:00 Acetaminophen (Tylenol) 650 mg Q6H PRN PO FEVER/PAIN SCALE 1 TO 2; Start 10/08 at 20:45 Acetaminophen/ Hydrocodone Bitart ([place] 5-325 Mg) 1 tab Q4H PRN PO PAIN SCALE 3 TO 5 Last administered on 10/09/17 23:57; Start 10/08/17 at 20:45 Morphine Sulfate (Morphine Inj) 2 mg Q3H PRN IV PAIN 6-10 Last administered on 10/10/17 11:02; Start 10/08/17 at 20:45 Senna/Docusate Sodium (Joyce-Colace) 1 tab BID PO Last administered on 10:10; Start 10/08/17 at 21:00 Magnesium Hydroxide (Milk Of Magnesia Liq) 30 ml Q12H PRN PO Mild constipation ; Start 10/08/17 at 20:45 Sennosides (Senokot) 17.2 mg Q12H PRN PO Moderate constipation; Start at 20:45 Bisacodyl (Dulcolax Supp) 10 mg DAILY PRN RECTAL SEVERE CONSITIPATION; Start 10/08/17 at 20:45 Lactulose (Lactulose Liq) 30 ml DAILY PRN PO SEVERE CONSITIPATION; Start 10/08 at 20:45 Ceftriaxone Sodium 1000 mg/ Sodium Chloride 100 ml @ 200 mls/hr Q24H IV Last administered on 10/09/17 20:55; Start 10/09/17 at 21:00 Azithromycin 500 mg/Sodium Chloride 250 ml @ 250 mls/hr Q24H IV Last administered on 10/09/17 20:56; Start 10/09/17 at 21:00 Allopurinol (Zyloprim) 100 mg DAILY PO Last administered on 10/10/17 10:10; Start 10/09/17 at 09:00 Amlodipine Besylate (Norvasc) 10 mg DAILY PO Last administered on 10/10/17 10 :08; Start 10/09/17 at 09:00 Calcitriol (Rocaltrol) 0.25 mcg DAILY PO Last administered on 10/10/17 10:09 ; Start 10/09/17 at 09:00 Cyclobenzaprine HCl (Flexeril) 10 mg BID PO Last administered on 10/10/17 10: 10; Start 10/08/17 at 21:00 Pregabalin (Lyrica) 75 mg DAILY PO Last administered on 10/09/17 08:39; Start 10/09/17 at 09:00 Zolpidem Tartrate (Ambien) 10 mg HS PRN PO INSOMNIA Last administered on 23:55; Start 10/08/17 at 20:45 Levothyroxine Sodium (Synthroid) 112 mcg DAILY@0600 PO Last administered on 05:20; Start 10/09/17 at 06:00 Pantoprazole Sodium (Protonix) 20 mg DAILY PO Last administered on 10/10/17 10:06; Start 10/09/17 at 09:00 Levothyroxine Sodium (Synthroid) 25 mcg DAILY@0600 PO Last administered on 05:20; Start 10/09/17 at 06:00 Furosemide (Lasix Inj) 40 mg BID@09,18 IV PUSH Last administered on 10/10/17 10:06; Start 10/09/17 at 09:00; Stop 10/10/17 at 10:55; Status DC Furosemide (Lasix) 40 mg BID@09,18 PO ; Start 10/10/17 at 18:00 A/P Problem List: (1) Pulmonary edema ICD Code: J81.1 - Chronic pulmonary edema Status: Acute (2) Hypoxia ICD Code: R09.02 - Hypoxemia Status: Acute (3) Leukocytosis ICD Code: D72.829 - Elevated white blood cell count, unspecified Status: Acute (4) BRANDT (acute kidney injury) ICD Code: N17.9 - Acute kidney failure, unspecified (5) Hyperkalemia ICD Code: E87.5 - Hyperkalemia (6) HTN (hypertension) ICD Code: I10 - Essential (primary) hypertension (7) Anemia ICD Code: D64.9 - Anemia, unspecified Assessment and Plan This is a 59-year-old female presented with shortness of breathing Pulmonary Edema: - c/o SOB w/ orthopnea, CXR w/ bilateral effusions, d-dimer elevated, CTA Pulm negative for PE but bilateral effusions noted. No h/o CHF per patient but she was on Lasix in the past due to lower extremity edema. Troponins so far stable negative. -Pending echo report which was done this morning. -continue Lasix and try to wean oxygen as tolerated. Strict ins and outs. -Patient failed walk test. Will place DME order for home oxygen. Acute respiratory failure with Hypoxia: O2 sat 89% on RA while in ER, +dyspnea , likely secondary to pulmonary edema. -Monitor O2. DuoNeb prn, -Most likely secondary to pulmonary edema. -Patient treated empirically for pneumonia due to elevated white count. Leukocytosis: -WBC 15.7, Afebrile. CXR w/ no acute infiltrate, however in light of cough and bandemia, will continue w/ empiric treatment for PNA. S/p Rocephin/Zithro in ER , will continue. -Improving. Continue to trend. Acute on chronic renal insufficiency -Nurse Practitioner following. -Lasix was decreased today. Continues to have good urine output. Continue to trend chronic. HTN: - BP 180's on arrival, likely compounded by SOB, resume home medications, monitor BP. -Continue home medication. Hyperkalemia: -+ 5.8, hemolysis noted. -Resolved. Anemia: Chronic. - On Procrit prn. Hgb 8.6, previously 9.5 on 02/07/13. - follows w/ Dr. Thomson as outpatient. DVT Prophylaxis: Heparin sq Problem Qualifiers (1) Pulmonary edema: Qualified Codes: J81.0 - Acute pulmonary edema (2) Leukocytosis: Qualified Codes: D72.829 - Elevated white blood cell count, unspecified Marichuy Monaco MD Oct 10, 2017 13:40
[2017-10-10] MEDS: FUROSEMIDE 40 MG TAB PO SCH (17:20)
--- NOTE | 2017-10-10 19:30 | ECHRPT ---
Indication: CARDIOMYOPATHY CONCLUSIONS The left ventricular systolic function is probably normal with an estimated ejection fraction in the range of 55-60%. Trace mitral valve regurgitation. Trace aortic valve regurgitation. Mild tricuspid valve stenosis. BP: 123 / 60 HR: Rhythm: Sinus MEASUREMENTS (Male / Female) Normal Values Technical Quality:Fair 2D ECHO LV Diastolic Diameter PLAX 5.2 cm 4.2 - 5.9 / 3.9 - 5.3 cm LV Systolic Diameter PLAX 3.7 cm IVS Diastolic Thickness 0.8 cm 0.6 - 1.0 / 0.6 - 0.9 cm LVPW Diastolic Thickness 0.8 cm 0.6 - 1.0 / 0.6 - 0.9 cm LV Relative Wall Thickness 0.3 LVOT Diameter 2.0 cm Aortic Root Diameter 3.1 cm LA Systolic Diameter LX 3.5 cm 3.0 - 4.0 / 2.7 - 3.8 cm M-MODE AV Cusp Separation MM 2.5 cm DOPPLER AV Peak Velocity 140.5 cm/s AV Peak Gradient 7.9 mmHg AV Mean Gradient 4.0 mmHg AV Velocity Time Integral 28.0 cm LVOT Peak Velocity 103.0 cm/s LVOT Peak Gradient 4.2 mmHg LVOT Velocity Time Integral 21.9 cm AV Area Cont Eq vti 2.5 cm AV Area Cont Eq pk 2.3 cm Mitral E Point Velocity 123.0 cm/s Mitral A Point Velocity 118.0 cm/s Mitral E to A Ratio 1.0 LV E' Lateral Velocity 8.5 cm/s Mitral E to LV E' Lateral Ratio 14.5 LV E' Septal Velocity 6.1 cm/s Mitral E to LV E' Septal Ratio 20.0 TR Peak Velocity 300.0 cm/s TR Peak Gradient 36.0 mmHg Right Atrial Pressure 10.0 mmHg Pulmonary Artery Systolic Pressu 46.0 mmHg Right Ventricular Systolic Press 46.0 mmHg PV Peak Velocity 79.7 cm/s PV Peak Gradient 2.5 mmHg FINDINGS LEFT VENTRICLE Normal left ventricular size. Wall thickness is normal. The left ventricular systolic function is probably normal with an estimated ejection fraction in the range of 55-60%. RIGHT VENTRICLE Normal right ventricular size and systolic function. LEFT ATRIUM The left atrial size is [id number] dilated. RIGHT ATRIUM The right atrial size is normal. ATRIAL SEPTUM Normal atrial septal thickness. . AORTA The aortic root and proximal ascending aorta are normal in size on limited imaging. MITRAL VALVE Structurally normal mitral valve. Trace mitral valve regurgitation. No mitral valve stenosis. AORTIC VALVE Trileaflet aortic valve. Trace aortic valve regurgitation. No aortic valve stenosis. TRICUSPID VALVE Structurally normal tricuspid valve. Mild tricuspid valve stenosis. The estimated pulmonary arterial pressure is 46 mmHg. PULMONARY VALVE Trivial pulmonary valve regurgitation. The pulmonary valve is not well visualized. VESSELS The inferior vena cava is normal in size. PERICARDIUM No pericardial effusion. Grady Tabares DO (Electronically Signed) Final Date:10 October 2017 19:29
[2017-10-10] MEDS: cefTRIAXone INJ 1,000 MG in SODIUM CHLORIDE 0.9% INJ 100 ML IV SCH (20:11)
[2017-10-10] MEDS: ACETAMINOPHEN/HYDROcodone 325 MG/5 MG TAB PO PRN (20:20)
[2017-10-10] MEDS: AZITHROMYCIN INJ 500 MG in SODIUM CHLOR 0.9% 250 ML INJ 250 ML IV SCH (20:25)
[2017-10-10] MEDS: ZOLPIDEM TARTRATE 10 MG TAB PO PRN (22:06)
[2017-10-11] VITALS (9 sets, daily range): BP systolic 110–134; BP diastolic 53–75; PULSE 96–111; RESP 16–20; TEMP 97.2–99.2; O2SAT 91–96
[2017-10-11] MEDS: MORPHINE SULFATE 2 MG/ML INJ IV PRN ×3 (03:29→20:33)
[2017-10-11] MEDS: LEVOTHYROXINE SODIUM 112 MCG TAB PO SCH (06:24)
[2017-10-11] MEDS: LEVOTHYROXINE SODIUM 25 MCG TAB PO SCH (06:24)
[2017-10-11] MEDS: PANTOPRAZOLE SOD 20 MG DELAYED RELEASE TAB PO SCH (08:26)
[2017-10-11] MEDS: CALCITRIOL 0.25 MCG CAP PO SCH (08:26)
[2017-10-11] MEDS: ALLOPURINOL 100 MG TAB PO SCH (08:26)
[2017-10-11] MEDS: DOCUSATE SODIUM 50 MG/SENNA 8.6 MG TAB PO SCH ×2 (08:26→20:33)
[2017-10-11] MEDS: CYCLOBENZAPRINE HCL 10 MG TAB PO SCH ×2 (08:26→20:33)
[2017-10-11] MEDS: FUROSEMIDE 40 MG TAB PO SCH (08:26)
[2017-10-11] MEDS: ACETAMINOPHEN/HYDROcodone 325 MG/5 MG TAB PO PRN (08:27)
[2017-10-11] MEDS: PREGABALIN 75 MG CAP PO SCH (08:28)
[2017-10-11] MEDS: HEPARIN SODIUM - SQ 10,000 UNITS/ML VIAL SQ SCH ×2 (08:28→20:33)
[2017-10-11] MEDS: SODIUM CHLORIDE 0.9% FLUSH 10 ML FLUSH IV FLUSH SCH ×2 (08:31→20:36)
[2017-10-11 10:32] LABS: BICARBONATE 32.1 MEQ/L (21.0-32.0); POTASSIUM 4.6 MEQ/L (3.5-5.1)
[2017-10-11] MEDS ORDERED: EPOETIN ALFA 20,000 UNITS/ML VIAL SQ ONE (10:45)
--- NOTE | 2017-10-11 12:12 | HHI.PR ---
Subjective Remarks Follow-up for respiratory failure and pulmonary edema Patient stated her breathing has improved drastically. She has no other complaints. She states she is making good urine output. She is very anxious to go home. Objective Vitals Vital Signs Date Time Temp Pulse Resp B/P (MAP) Pulse Ox O2 Delivery O2 Flow Rate FiO2 10/11/17 10:38 106 10/11/17 08:00 98.8 111 16 116/53 (74) 96 10/11/17 07:53 95 Nasal Cannula 2.00 10/11/17 07:00 Nasal Cannula 2.00 10/11/17 04:00 97.6 106 17 116/75 (89) 92 10/11/17 00:00 99.2 96 17 110/53 (72) 91 10/10/17 21:40 94 Nasal Cannula 2.00 10/10/17 20:00 98.6 95 17 126/63 (84) 93 10/10/17 20:00 97 10/10/17 19:45 Nasal Cannula 2.00 10/10/17 16:00 98.2 98 20 135/63 (87) 97 I/O 10/10/17 10/10/17 10/10/17 10/11/17 10/11/17 10/11/17 07:00 15:00 23:00 07:00 15:00 23:00 Intake Total 460 ml 1325 ml 480 ml Output Total 2000 ml 1200 ml 600 ml Balance -1540 ml 125 ml -120 ml Intake Oral 460 ml 960 ml 480 ml IV Total 365 ml Output Urine Total 2000 ml 1200 ml 600 ml # Bowel Movements 0 Result Diagram: 10/10/17 0625 10/11/17 0958 Objective Remarks GENERAL: in NAD CARDIOVASCULAR: Regular rate and rhythm without murmurs, gallops, or rubs. RESPIRATORY: Clear to auscultation bilaterally. No accessory muscle use. GASTROINTESTINAL: Abdomen soft, non-tender, nondistended. MUSCULOSKELETAL: No cyanosis, or edema. BACK: Nontender without obvious deformity. No CVA tenderness. Medications and IVs Current Medications Sodium Chloride (NS Flush) 2 ml UNSCH PRN IVF FLUSH AFTER USING IV ACCESS; Start 10/08/17 at 17:00 Lorazepam (Ativan Inj) 1 mg ONCE ONCE IV PUSH Last administered on 10/08/17t 19:11; Start 10/08/17 at 19:00; Stop 10/08/17 at 19:01; Status DC Iohexol (Omnipaque 350 Inj) 46 ml STK-MED ONCE IVCONTRAST ; Start 10/08/17 at 19:44; Stop 10/08/17 at 19:45; Status Cancel Furosemide (Lasix Inj) 40 mg ONCE ONCE IV PUSH ; Start 10/08/17 at 20:15; Stop 10/08/17 at 20:15; Status DC Ceftriaxone Sodium 1000 mg/ Sodium Chloride 100 ml @ 200 mls/hr ONCE ONCE IV Last administered on 10/08/17 20:37; Start 10/08/17 at 20:15; Stop 10/08/17 at 20:44; Status DC Azithromycin 500 mg/Sodium Chloride 250 ml @ 250 mls/hr ONCE ONCE IV Last administered on 10/08/17 21:33; Start 10/08/17 at 20:15; Stop 10/08/17 at 21 :14; Status DC Iodixanol (VISIPAQUE 320 INJ (Rad CT)) 46 ml STK-MED ONCE IVCONTRAST Last administered on 10/08/17 19:50; Start 10/08/17 at 19:50; Stop 10/08/17 at 20 :06; Status DC Furosemide (Lasix Inj) 20 mg ONCE ONCE IV PUSH Last administered on 20:36; Start 10/08/17 at 20:15; Stop 10/08/17 at 20:16; Status DC Albuterol/ Ipratropium (Duoneb Neb) 1 ampule Q4HR NEB PRN NEB SOB/WHEEZING; Start 10/08/17 at 20:45 Sodium Chloride (NS Flush) 2 ml UNSCH PRN IV FLUSH FLUSH AFTER USING IV ACCESS ; Start 10/08/17 at 20:45 Sodium Chloride (NS Flush) 2 ml BID IV FLUSH Last administered on 10/11/17 08 :31; Start 10/08/17 at 21:00 Ondansetron HCl (Zofran Inj) 4 mg Q6H PRN IVP NAUSEA OR VOMITING Last administered on 10/10/17 20:29; Start 10/08/17 at 20:45 Heparin Sodium (Porcine) (Heparin Inj) 5,000 units Q12H SQ Last administered on 10/11/17 08:28; Start 10/09/17 at 09:00 Acetaminophen (Tylenol) 650 mg Q6H PRN PO FEVER/PAIN SCALE 1 TO 2; Start 10/08 at 20:45 Acetaminophen/ Hydrocodone Bitart ([place] 5-325 Mg) 1 tab Q4H PRN PO PAIN SCALE 3 TO 5 Last administered on 10/11/17 08:27; Start 10/08/17 at 20:45 Morphine Sulfate (Morphine Inj) 2 mg Q3H PRN IV PAIN 6-10 Last administered on 10/11/17 06:26; Start 10/08/17 at 20:45 Senna/Docusate Sodium (Joyce-Colace) 1 tab BID PO Last administered on 08:26; Start 10/08/17 at 21:00 Magnesium Hydroxide (Milk Of Magnesia Liq) 30 ml Q12H PRN PO Mild constipation ; Start 10/08/17 at 20:45 Sennosides (Senokot) 17.2 mg Q12H PRN PO Moderate constipation; Start at 20:45 Bisacodyl (Dulcolax Supp) 10 mg DAILY PRN RECTAL SEVERE CONSITIPATION; Start 10/08/17 at 20:45 Lactulose (Lactulose Liq) 30 ml DAILY PRN PO SEVERE CONSITIPATION; Start 10/08 at 20:45 Ceftriaxone Sodium 1000 mg/ Sodium Chloride 100 ml @ 200 mls/hr Q24H IV Last administered on 10/10/17 20:11; Start 10/09/17 at 21:00 Azithromycin 500 mg/Sodium Chloride 250 ml @ 250 mls/hr Q24H IV Last administered on 10/10/17 20:25; Start 10/09/17 at 21:00 Allopurinol (Zyloprim) 100 mg DAILY PO Last administered on 10/11/17 08:26; Start 10/09/17 at 09:00 Amlodipine Besylate (Norvasc) 10 mg DAILY PO Last administered on 10/11/17 08 :26; Start 10/09/17 at 09:00 Calcitriol (Rocaltrol) 0.25 mcg DAILY PO Last administered on 10/11/17 08:26 ; Start 10/09/17 at 09:00 Cyclobenzaprine HCl (Flexeril) 10 mg BID PO Last administered on 10/11/17 08: 26; Start 10/08/17 at 21:00 Pregabalin (Lyrica) 75 mg DAILY PO Last administered on 10/09/17 08:39; Start 10/09/17 at 09:00 Zolpidem Tartrate (Ambien) 10 mg HS PRN PO INSOMNIA Last administered on 22:06; Start 10/08/17 at 20:45 Levothyroxine Sodium (Synthroid) 112 mcg DAILY@0600 PO Last administered on 06:24; Start 10/09/17 at 06:00 Pantoprazole Sodium (Protonix) 20 mg DAILY PO Last administered on 10/11/17 08:26; Start 10/09/17 at 09:00 Levothyroxine Sodium (Synthroid) 25 mcg DAILY@0600 PO Last administered on 06:24; Start 10/09/17 at 06:00 Furosemide (Lasix Inj) 40 mg BID@09,18 IV PUSH Last administered on 10/10/17 10:06; Start 10/09/17 at 09:00; Stop 10/10/17 at 10:55; Status DC Furosemide (Lasix) 40 mg BID@09,18 PO Last administered on 10/11/17 08:26; Start 10/10/17 at 18:00; Stop 10/11/17 at 10:47; Status DC Epoetin [place] (Epogen Inj) 20,000 units ONCE ONCE SQ Last administered on 10/11 11:09; Start 10/11/17 at 10:45; Stop 10/11/17 at 11:03; Status DC Furosemide (Lasix) 40 mg DAILY PO ; Start 10/12/17 at 09:00 A/P Problem List: (1) Pulmonary edema ICD Code: J81.1 - Chronic pulmonary edema Status: Acute (2) Hypoxia ICD Code: R09.02 - Hypoxemia Status: Acute (3) Leukocytosis ICD Code: D72.829 - Elevated white blood cell count, unspecified Status: Acute (4) BRANDT (acute kidney injury) ICD Code: N17.9 - Acute kidney failure, unspecified (5) Hyperkalemia ICD Code: E87.5 - Hyperkalemia (6) HTN (hypertension) ICD Code: I10 - Essential (primary) hypertension (7) Anemia ICD Code: D64.9 - Anemia, unspecified Assessment and Plan This is a 59-year-old female presented with shortness of breathing Pulmonary Edema: - c/o SOB w/ orthopnea, CXR w/ bilateral effusions, d-dimer elevated, CTA Pulm negative for PE but bilateral effusions noted. No h/o CHF per patient but she was on Lasix in the past due to lower extremity edema. Troponins so far stable negative. -Echo reviewed. EF is 55-60%. -Patient symptoms are improving but creatinine continues to increase. 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 -Since clinically she is improving we will repeat the walk test to see if she needs oxygen. At the moment per case management she does qualify for oxygen. Acute respiratory failure with Hypoxia: O2 sat 89% on RA while in ER, +dyspnea , likely secondary to pulmonary edema. -Monitor O2. DuoNeb prn, -Most likely secondary to pulmonary edema. -Patient treated empirically for pneumonia due to elevated white count. -On discharge can switch to oral antibiotics. Leukocytosis: -WBC 15.7, Afebrile. CXR w/ no acute infiltrate, however in light of cough and bandemia, will continue w/ empiric treatment for PNA. S/p Rocephin/Zithro in ER , will continue. -Improving. Acute on chronic renal insufficiency -Tortilla Maker following. -Creatinine is worsening but she continues have good urine output. -Lasix was decreased. -Continue to trend creatinine, avoid nephrotoxins, strict ins and outs. HTN: - BP 180's on arrival, likely compounded by SOB, resume home medications, monitor BP. -Continue home medication. Hyperkalemia: -+ 5.8, hemolysis noted. -Resolved. Anemia: Chronic. - On Procrit prn. Hgb 8.6, previously 9.5 on 02/07/13. - follows w/ Dr. Thomson as outpatient. DVT Prophylaxis: Heparin sq Discharge Planning If creatinine improves tomorrow and she continues have good urine output can be discharge to home tomorrow. Problem Qualifiers (1) Pulmonary edema: Qualified Codes: J81.0 - Acute pulmonary edema (2) Leukocytosis: Qualified Codes: D72.829 - Elevated white blood cell count, unspecified Marichuy Monaco MD Oct 11, 2017 12:12
--- NOTE | 2017-10-11 13:23 | HHI.NPPN ---
Subjective Renal Failure: Chronic, Acute Interval History Renal function is slightly worse. (Ketty Prasad) Review of Systems Respiratory Lungs: SOB (Ketty Prasad) Objective Data Data Vital Signs Date Time Temp Pulse Resp B/P (MAP) Pulse Ox O2 Delivery O2 Flow Rate FiO2 10/11/17 12:00 98.3 105 20 111/53 (72) 92 10/11/17 10:38 106 10/11/17 08:00 98.8 111 16 116/53 (74) 96 10/11/17 07:53 95 Nasal Cannula 2.00 10/11/17 07:00 Nasal Cannula 2.00 10/11/17 04:00 97.6 106 17 116/75 (89) 92 10/11/17 00:00 99.2 96 17 110/53 (72) 91 10/10/17 21:40 94 Nasal Cannula 2.00 10/10/17 20:00 98.6 95 17 126/63 (84) 93 10/10/17 20:00 97 10/10/17 19:45 Nasal Cannula 2.00 10/10/17 16:00 98.2 98 20 135/63 (87) 97 (Ketty Prasad) -: 10/10/17 0625 10/11/17 0958 Imaging Last [address] Angiography 10/08/17 1829 Signed Impressions: Service Date/Time: Sunday, October 08, 2017 19:24 - CONCLUSION: 1. No evidence of pulmonary embolus. 2. Bilateral pulmonary groundglass opacity and small bilateral pleural effusions. Prominence of central pulmonary vasculature. Findings suggest pulmonary edema. John Workman MD Chest X-Ray 10/08/17 1654 Signed Impressions: Service Date/Time: Sunday, October 08, 2017 17:15 - CONCLUSION: Mild congestive heart failure suspected. Small effusions are seen. Sascha Aparicio MD (Ketty Prasad) Physical Exam General Appearance: Well Developed, Well Nourished, Comfortable, Obese (Ketty Prasad) Eyes Eye Exam: Pupils Equal (Ketty Prasad) Neck Neck Exam: Neck Supple (Ketty Prasad) Pulmonary Resp Exam: Clear Bilaterally, Breath Sounds Equal (Ketty Prasad) Cardiology CV Exam: Regular, Normal Sinus Rhythm (Ketty Prasad) Gastrointestinal/Abdomen GI Exam: Soft, Non-Tender, Bowel Sounds Present (Ketty Prasad) Musculoskeletal MS Exam: Joints Intact, Normal Tone (Ketty Prasad) Integumentary Skin Exam: Clear, Warm, Dry, Intact (Ketty Prasad) Extremeties Extremities Exam: Pedal Pulses Palpable, Trace Edema (Ketty Prasad) Neurologic Neuro Exam: Alert, Awake, Oriented, Speech Clear, Moving All Extremities (Ketty Prasad) Psychiatric Psych Exam: Appropriate Responses (Ketty Prasad) Assessment/Plan Discussed Condition With: Patient, Spouse Assessment Summary: Hypertension, CKD Stage III Problem List: (1) CKD (chronic kidney disease) ICD Codes: N18.9 - Chronic kidney disease, unspecified Plan: Her renal function was at baseline on admission Renal function is worse; the decline may be due to CT angio that was done two days ago, contrast induced nephropathy No acute electrolyte disorders She is stable, we would like to follow her renal function overnight; if stabilized or improved can be discharged We will follow her in CKD clinic; needs BMP Monday She is non oliguric On Lasix once per day, PO At this time adequate water intake was encouraged Avoid IVF, nephrotoxic agent (2) SOB (shortness of breath) ICD Codes: R06.02 - Shortness of breath Plan: Improved, monitor She is on oxygen;home oxygen being ordered On Rocephin and Zithromax for empiric treatment (3) Hyperkalemia ICD Codes: E87.5 - Hyperkalemia Plan: Improved, was lab error apparently (4) HTN (hypertension) ICD Codes: I10 - Essential (primary) hypertension Plan: Blood pressure is stable Continue present medications Plan (Ketty Prasad) Plan patient was seen and examined. Likely has developed contrast nephropathy. If discharged, needs close followup of renal function, repeat labs next week. (Jared Huynh MD) Ketty Prasad Oct 11, 2017 13:23 Jared Huynh MD Oct 12, 2017 07:27
[2017-10-11] MEDS: cefTRIAXone INJ 1,000 MG in SODIUM CHLORIDE 0.9% INJ 100 ML IV SCH (20:34)
[2017-10-11] MEDS: AZITHROMYCIN INJ 500 MG in SODIUM CHLOR 0.9% 250 ML INJ 250 ML IV SCH (20:35)
[2017-10-11] MEDS: ZOLPIDEM TARTRATE 10 MG TAB PO PRN (23:18)
[2017-10-12] VITALS: BP 105/62; PULSE 111; RESP 20; TEMP 98.7; O2SAT 94
[2017-10-12 04:00] VITALS: BP 138/63; PULSE 110; RESP 20; TEMP 98.9; O2SAT 97
[2017-10-12] MEDS: MORPHINE SULFATE 2 MG/ML INJ IV PRN (04:13)
[2017-10-12] MEDS: LEVOTHYROXINE SODIUM 112 MCG TAB PO SCH (05:29)
[2017-10-12] MEDS: LEVOTHYROXINE SODIUM 25 MCG TAB PO SCH (05:29)
[2017-10-12 07:29] LABS: HEMATOCRIT 25.3 % (35.0-46.0); MEAN CORPUSCULAR HEMOGLOBIN 33.9 PG (27.0-34.0); MEAN CORPUSCULAR HGB CONC 32.3 % (32.0-36.0); PLATELET COUNT 201 TH/MM3 (150-450); RED BLOOD COUNT 2.41 MIL/MM3 (4.00-5.30); WHITE BLOOD COUNT 11.8 TH/MM3 (4.0-11.0)
[2017-10-12 07:43] LABS: REVIEW FLAG FINAL
[2017-10-12 07:44] LABS: BICARBONATE 32.7 MEQ/L (21.0-32.0); POTASSIUM 4.8 MEQ/L (3.5-5.1)
[2017-10-12 08:00] VITALS: BP 101/49; PULSE 106; PULSE 107; RESP 18; TEMP 98.7; O2SAT 92
[2017-10-12] MEDS: PREGABALIN 75 MG CAP PO SCH (09:00)
[2017-10-12] MEDS ORDERED: FUROSEMIDE 40 MG TAB PO SCH (09:00)
[2017-10-12 09:12] VITALS: O2SAT 93
[2017-10-12 09:54] VITALS: BP 154/70
[2017-10-12] MEDS: CALCITRIOL 0.25 MCG CAP PO SCH (09:56)
[2017-10-12] MEDS: PANTOPRAZOLE SOD 20 MG DELAYED RELEASE TAB PO SCH (09:56)
[2017-10-12] MEDS: CYCLOBENZAPRINE HCL 10 MG TAB PO SCH (09:56)
[2017-10-12] MEDS: DOCUSATE SODIUM 50 MG/SENNA 8.6 MG TAB PO SCH (09:57)
[2017-10-12] MEDS: HEPARIN SODIUM - SQ 10,000 UNITS/ML VIAL SQ SCH (09:57)
[2017-10-12] MEDS: ALLOPURINOL 100 MG TAB PO SCH (09:57)
[2017-10-12] MEDS: SODIUM CHLORIDE 0.9% FLUSH 10 ML FLUSH IV FLUSH SCH (09:58)
[2017-10-12 12:00] VITALS: BP 115/56; PULSE 102; RESP 18; TEMP 98.4; O2SAT 94
[2017-10-12] MEDS ORDERED: FURO40TA PO (12:25)
[2017-10-12] MEDS ORDERED: CEFU1TAB20 PO ×2 (12:28→12:30)
[2017-10-12] MEDS ORDERED: AZIT500T2 PO (12:28)
--- NOTE | 2017-10-12 12:30 | HHI.DCPOC ---
Discharge Care Plan Diagnosis: (1) Hypoxia (2) Pulmonary edema (3) CKD (chronic kidney disease) (4) SOB (shortness of breath) (5) BRANDT (acute kidney injury) (6) Anemia (7) Leukocytosis Goals to Promote Your Health * To prevent worsening of your condition and complications * To maintain your health at the optimal level Directions to Meet Your Goals Take your medications as prescribed Follow your dietary instruction Follow activity as directed Keep your appointments as scheduled Take your immunizations and boosters as scheduled If your symptoms worsen call your PCP, if no PCP go to Urgent Care Center or Emergency Room Smoking is Dangerous to Your Health. Avoid second hand smoke Call the 24-hour hour crisis hotline for domestic abuse at Giles Estrada DO Oct 12, 2017 12:30
--- NOTE | 2017-10-12 12:32 | HHI.FF ---
Face to Face Verification Diagnosis: (1) Hypoxia (2) Pulmonary edema (3) CKD (chronic kidney disease) (4) SOB (shortness of breath) (5) BRANDT (acute kidney injury) (6) HTN (hypertension) (7) Anemia (8) Leukocytosis Physical Therapy Order: Evaluate and Treat, Improve ambulation, Strength and gait training Home Health Nursing Order: Medical education Signs/symptoms of disease process Oxygen administration education Medication education-adverse effect Nursing assessment with vital signs I have seen patient Marisel Ontiveros on 10/12/17. My clinical findings support the need for the requested home health care services because: Patient has SOB Deconditioned w/ increased weakness Limited ability to care for self High risk of falls I certify that my clinical findings support that this patient is homebound because: Unsteady gait/balance Unsafe to leave home unassisted Gilse Estrada DO Oct 12, 2017 12:32
--- NOTE | 2017-10-12 12:34 | HHI.NPPN ---
Subjective Renal Failure: Chronic, Acute Interval History Doing well, to be discharged today. Renal function has improved. Review of Systems Respiratory Lungs: SOB Objective Data Data Vital Signs Date Time Temp Pulse Resp B/P (MAP) Pulse Ox O2 Delivery O2 Flow Rate FiO2 10/12/17 09:54 154/70 (98) Automatic Cuff 10/12/17 09:12 93 Nasal Cannula 2.00 10/12/17 04:00 98.9 110 20 138/63 (88) 97 10/12/17 00:00 98.7 111 20 105/62 (76) 94 10/11/17 21:48 95 Nasal Cannula 2.00 10/11/17 21:00 97.2 107 18 134/58 (83) 94 10/11/17 16:00 97.8 105 20 121/58 (79) 92 -: 10/12/17 0623 10/12/17 0623 Physical Exam General Appearance: Well Developed, Well Nourished, Comfortable, Obese Eyes Eye Exam: Pupils Equal Neck Neck Exam: Neck Supple Pulmonary Resp Exam: Clear Bilaterally, Breath Sounds Equal Cardiology CV Exam: Regular, Normal Sinus Rhythm Gastrointestinal/Abdomen GI Exam: Soft, Non-Tender, Bowel Sounds Present Musculoskeletal MS Exam: Joints Intact, Normal Tone Integumentary Skin Exam: Clear, Warm, Dry, Intact Extremeties Extremities Exam: Pedal Pulses Palpable, Trace Edema Neurologic Neuro Exam: Alert, Awake, Oriented, Speech Clear, Moving All Extremities Psychiatric Psych Exam: Appropriate Responses Assessment/Plan Discussed Condition With: Patient, Spouse Assessment Summary: Hypertension, CKD Stage III Problem List: (1) CKD (chronic kidney disease) ICD Codes: N18.9 - Chronic kidney disease, unspecified Plan: Her renal function was at baseline on admission Renal function is worse; the decline may be due to CT angio that was done two days ago, contrast induced nephropathy Renal function has improved. Continue Lasix 40 mg PO daily. Avoid nephrotoxic agents. Patient was advised to restrict salt in her diet. (2) SOB (shortness of breath) ICD Codes: R06.02 - Shortness of breath Plan: Improved, monitor She is on oxygen;home oxygen being ordered On Rocephin and Zithromax for empiric treatment (3) Hyperkalemia ICD Codes: E87.5 - Hyperkalemia Plan: Improved, was lab error apparently (4) HTN (hypertension) ICD Codes: I10 - Essential (primary) hypertension Plan: Blood pressure is stable Continue present medications Plan She can be discharged from renal standpoint. Jared Huynh MD Oct 12, 2017 12:34
--- NOTE | 2017-10-12 12:39 | HHI.DS ---
Discharge Summary Admission Date Oct 08, 2017 at 20:20 Discharge Date: Oct 12, 2017 Admitting Diagnosis dyspnea, hypoxia, pulmonary edema, leukocytosis (1) Pulmonary edema ICD Code: J81.1 - Chronic pulmonary edema Diagnosis: Principal Status: Acute (2) Hypoxia ICD Code: R09.02 - Hypoxemia Diagnosis: Principal Status: Acute (3) Leukocytosis ICD Code: D72.829 - Elevated white blood cell count, unspecified Status: Acute (4) BRANDT (acute kidney injury) ICD Code: N17.9 - Acute kidney failure, unspecified Diagnosis: Principal (5) Hyperkalemia ICD Code: E87.5 - Hyperkalemia (6) HTN (hypertension) ICD Code: I10 - Essential (primary) hypertension (7) Anemia ICD Code: D64.9 - Anemia, unspecified Procedures None Brief History - From Admission This is a 61-year-old female with a PMH of HTN, Hyperlipidemia, Gout, Hodgkin's Disease in Remission, CKD and Chronic Anemia who presented to the ER w/ complaints of SOB for approx 1wk. States symptoms have gotten progressively more severe, unable to lay flat. Denies fever, chills, or chest pain but reports occasional non-productive cough. No sick contacts. On arrival, BP 188/ 78, HR 84, O2 sat 93% on RA, Afebrile. While in ER, O2 sat dropped to 89% on RA. Currently 97% on 2L NC. WBC 15.7, bandemia of 7%. Hemoglobin 8.6, previously 9.5 on 02/07/13. K+ 5.8-hemolysis noted. Creatinine 1.71, previously 1.34 on 02/07/13. Trop negative. BNP 221. Lipase 117. D-dimer 0.95. CXR with mild CHF, small effusions. CTA Pulm w/ pulmonary edma and bilateral groundglass opacity, no PE. No h/o CHF per patient. Follows only w/ PCP and Dr. Salmon w/ Nephrology. S/p Lasix 60mg IV and Rocephin/Zithro in ER. CBC/BMP: 10/12/17 0623 10/12/17 0623 Significant Findings Laboratory Tests Test 10/09/17 16:13 10/10/17 06:25 10/10/17 15:14 10/11/17 09:58 White Blood Count 12.2 TH/MM3 (4.0-11.0) Red Blood Count 2.32 MIL/MM3 (4.00-5.30) Hemoglobin 7.8 GM/DL (11.6-15.3) Hematocrit 24.0 % (35.0-46.0) Mean Corpuscular Volume 103.4 FL (80.0-100.0) Mean Platelet Volume 11.9 FL (7.0-11.0) Blood Urea Nitrogen 30 MG/DL (7-18) 31 MG/DL (7-18) Creatinine 1.94 MG/DL (0.50-1.00) 2.24 MG/DL (0.50-1.00) Calcium Level 8.2 MG/DL (8.5-10.1) 8.1 MG/DL (8.5-10.1) Estimat Glomerular Filtration Rate 32 ML/MIN (>89) 27 ML/MIN (>89) Random Glucose 112 MG/DL (74-106) Albumin 2.8 GM/DL (3.4-5.0) Phosphorus Level 6.7 MG/DL (2.5-4.9) Carbon Dioxide Level 32.1 MEQ/L (21.0-32.0) Test 10/12/17 06:23 White Blood Count 11.8 TH/MM3 (4.0-11.0) Red Blood Count 2.41 MIL/MM3 (4.00-5.30) Hemoglobin 8.2 GM/DL (11.6-15.3) Hematocrit 25.3 % (35.0-46.0) Mean Corpuscular Volume 105.0 FL (80.0-100.0) Mean Platelet Volume 11.2 FL (7.0-11.0) Blood Urea Nitrogen 31 MG/DL (7-18) Creatinine 2.18 MG/DL (0.50-1.00) Calcium Level 8.0 MG/DL (8.5-10.1) Carbon Dioxide Level 32.7 MEQ/L (21.0-32.0) Estimat Glomerular Filtration Rate 28 ML/MIN (>89) Imaging Last Impressions CT Angiography 10/08/17 1829 Signed Impressions: Service Date/Time: Sunday, October 08, 2017 19:24 - CONCLUSION: 1. No evidence of pulmonary embolus. 2. Bilateral pulmonary groundglass opacity and small bilateral pleural effusions. Prominence of central pulmonary vasculature. Findings suggest pulmonary edema. John Workman MD Chest X-Ray 10/08/17 1654 Signed Impressions: Service Date/Time: Sunday, October 08, 2017 17:15 - CONCLUSION: Mild congestive heart failure suspected. Small effusions are seen. Sascha Aparicio MD PE at Discharge GENERAL: in NAD CARDIOVASCULAR: Regular rate and rhythm without murmurs, gallops, or rubs. RESPIRATORY: Clear to auscultation bilaterally. No accessory muscle use. GASTROINTESTINAL: Abdomen soft, non-tender, nondistended. MUSCULOSKELETAL: No cyanosis, or edema. BACK: Nontender without obvious deformity. No CVA tenderness. Pt update on day of discharge The patient was resting in bed comfortably. She stated that she felt a little wobbly when ambulating but she said she has a walker at home. She would like to go home. She had questions pertaining to her kidney injury. Hospital Course Acute respiratory failure The pt presented with orthopnea, CXR w/ bilateral effusions, d-dimer elevated, CTA Pulm negative for PE but bilateral effusions noted as well as ground glass opacities. Trops negative. Echo reviewed, EF is 55-60%. Lasix was decreased to 40 mg by mouth daily. She requires home oxygen per the walk test. Case management assisted with setting the pt up with home oxygen. She received oxygen and DuoNebs prn. Patient treated empirically for pneumonia due to elevated white count. Leukocytosis improved. She will complete a course of Ceftin and azithromycin. 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 The pt has good urine output. Possible contrast induces kidney injury. She will continue Lasix. She will repeat a BMP on Monday and will follow up with nephrology. HTN SBP 180's on arrival. Improved. She will resume her home medication regimen. Anemia On Procrit as needed. She follows with hematology as an outpatient. Pt Condition on Discharge: Stable Discharge Disposition: Disch w/ Home Health Serv Discharge Time: > 30 minutes Discharge Instructions DIET: Follow Instructions for: Heart Healthy Diet Activities you can perform: Weight Bearing as Ghassan Follow up Referrals: Nephrology - 1 Week PCP Follow-up - 1 Week New Orders: BASIC METABOLIC PROF - 10/16/17 New Medications: Azithromycin (Azithromycin) 500 Mg Tab 500 MG PO DAILY for Infection, #1 TAB 0 Refills Take dose on 10/13/17 Cefuroxime (Cefuroxime) 500 Mg Tab 500 MG PO DAILY for Infection for 3 Days, #3 TAB 0 Refills Guaifenesin ER (Mucus Relief ER) 600 Mg Tab 600 MG PO BID PRN for CHEST CONGESTION AND/OR COUGH for 7 Days, #14 TAB 0 Refills Oxygen (O2) (Oxygen (O2)) Device LITER AIME.CANULA CONTINUOUS for Prevent Hypoxemia, #2 0 Refills Oxygen Concentrator Portable Gaseous 2 L/min via Nasal Canula Continuous For 30 days Furosemide (Furosemide) 40 Mg Tab 40 MG PO DAILY for Fluid overload, #30 TAB Continued Medications: Allopurinol (Allopurinol) 100 Mg Tab 100 MG PO DAILY for Gout, #30 TAB 0 Refills Amlodipine (Amlodipine) 10 Mg Tab 10 MG PO DAILY for Blood Pressure Management, #30 TAB 0 Refills Calcitriol (Calcitriol) 0.25 Mcg Cap 0.25 MCG PO DAILY for Calcium Supplement, #30 CAP 0 Refills Cyclobenzaprine (Flexeril) 10 Mg Tab 10 MG PO BID for Muscle Spasm, #90 TAB 0 Refills Hydrocodone-Acetaminophen (Hydrocodone-Acetaminophen) 7.5-300 Mg Tab 1 TAB PO Q4H PRN for PAIN, TAB 0 Refills Levothyroxine (Levothyroxine) 137 Mcg Tab 137 MCG PO DAILY for Thyroid, #30 TAB 0 Refills Omeprazole (Omeprazole) 20 Mg Tab 20 MG PO DAILY, #30 TAB 0 Refills Pregabalin (Lyrica) 75 Mg Cap 75 MG PO DAILY, #30 CAP 0 Refills Zolpidem (Zolpidem) 10 Mg Tab 10 MG PO HS PRN for INSOMNIA, TAB 0 Refills [vitamind] () Giles Estrada DO Oct 12, 2017 12:39
[2017-10-12] MEDS ORDERED: GUAI600T11 PO (14:18)
[2017-10-12] MEDS: ACETAMINOPHEN/HYDROcodone 325 MG/5 MG TAB PO PRN (14:26)
[2017-10-12] MEDS ORDERED: guaiFENesin E.R. 600 MG TAB PO ONE (15:00)
== END 2017-10-12 17:14 | disposition home health service (06) | DRG 189 ==
LOC: NEPC 15:53 → NEDA 20:20 → N04B 20:57
PROVIDERS: ADMIT Hospitalist; ATTEND Hospitalist
DX: J96.01 Acute respiratory failure with hypoxia (principal); J81.0 Acute pulmonary edema; J18.9 Pneumonia, unspecified organism; N17.9 Acute kidney failure, unspecified; N18.3 Chronic kidney disease, stage 3 (moderate); E11.22 Type 2 diabetes mellitus with diabetic chronic kidney disease; E11.40 Type 2 diabetes mellitus with diabetic neuropathy, unspecified; Z68.41 Body mass index [BMI] 40.0-44.9, adult; I12.9 Hypertensive chronic kidney disease with stage 1 through stage 4 chronic kidney disease, or unspecified chronic kidney disease; D63.1 Anemia in chronic kidney disease; E87.5 Hyperkalemia; E89.0 Postprocedural hypothyroidism; T50.8X5A Adverse effect of diagnostic agents, initial encounter; E66.9 Obesity, unspecified; E78.5 Hyperlipidemia, unspecified; N14.1 Nephropathy induced by other drugs, medicaments and biological substances; M10.9 Gout, unspecified; Z85.71 Personal history of Hodgkin lymphoma; Z88.1 Allergy status to other antibiotic agents; Z88.2 Allergy status to sulfonamides; Z90.81 Acquired absence of spleen; Z96.651 Presence of right artificial knee joint
CPT/HCPCS: 71010; 71275; 80048; 80053; 80069; 82550; 82552; 83690; 83735; 83880; 84484; 85007; 85027; 85379; 93005; 93306; 94620; 96374; J0456; J0696; J1644; J1940; J2060; J2270; J2405; J7050; Q4081; Q9967

== ENCOUNTER 2018-05-04 14:59 | Inpatient (IN) | payer OTHER, MEDICARE ==
[~2018-05-04] VITALS: Ht 177.8 cm; Wt 127.9 kg
[~2018-05-04 14:59] MED LIST changes: +ALLO100T PO; -ALLO300 PO; -AMBI12.5 PO; +AMLO10TA2 PO; -AMLO5TAB22 PO; -ATEN-102 PO; +AZIT500T2 PO; -BENZ100 PO; +CEFU1TAB20 PO; +CYCL10TA PO; -CYCL1PAK PO; -FURO20 PO; +FURO40TA PO; -GABA600T PO; +GUAI600T11 PO; +HYDR-2376 PO; -LEVO.15 PO; +LEVO137T2 PO; +LYRI75CA PO; -NORC7.5T PO; -OMEP20TA39 PO; +OMEP20TA93 PO; +OXYGENDME NAS.CANULA; -POTA25TA2 PO; -VITA100018 PO; +ZOLP10TA3 PO; +vitamind
[2018-05-04 15:08] VITALS: BP 136/61; PULSE 107; RESP 22; TEMP 98.5; O2SAT 93
--- NOTE | 2018-05-04 16:04 | PD ---
HPI Chief Complaint: General Weakness Time Seen by Provider: 15:58 Travel History International Travel<30 days: No Contact w/Intl Traveler<30days: No Traveled to known affect area: No History of Present Illness HPI 62-year-old female with history of hypertension, remote history of Hodgkin's disease is a young adult, and chronic kidney disease, presents the emergency department for evaluation of 4 days of intermittent shortness of breath and chest pressure, substernal in nature. It does not radiate anywhere.. Patient states she has not been able to do her normal activities due to the shortness of breath. She states anytime she tries she developed this chest pressure. It is moderate. She reports subjective chills but uncertain of fever. She denies any cough or chest congestion. Patient denies any cardiac history except she tells me that she forgot to take a water pill this morning. She states she has just been too tired and weak to do anything. Patient was being treated for a gout exacerbation but was only able to take a day and a half of her Medrol Dosepak. This made her sick to her stomach so her last dose of steroids was on Monday, 5 days ago. She has no other symptoms to report at this time. PFSH Past Medical History Arthritis: No Asthma: No Heart Rhythm Problems: No Cancer: Yes (HODGKIN DZ-IN REMISSION ) Cardiovascular Problems: Yes (Heart murmer) High Cholesterol: No Chest Pain: No Congestive Heart Failure: No COPD: No Cerebrovascular Accident: No Diabetes: No Diminished Hearing: No Endocrine: Yes GERD: No Gout: Yes Genitourinary: Yes Headaches: Yes Hiatal Hernia: No Hypertension: Yes Immune Disorder: No Kidney Stones: No Musculoskeletal: Yes Neurologic: Yes Psychiatric: No Reproductive: No Respiratory: Yes Immunizations Current: Yes Migraines: No Renal Failure: Yes Seizures: No Sleep Apnea: No Thyroid Disease: No Ulcer: No Menopausal: Yes Past Surgical History Abdominal Surgery: Yes (SPLEENECTOMY) Body Medical Devices: HYPOTHYROIDISM, GOUT, NEUROPATHY. Cardiac Surgery: No Cholecystectomy: Yes Ear Surgery: No Endocrine Surgery: Yes (THYROIDECTOMY) Eye Surgery: No Genitourinary Surgery: Yes Gynecologic Surgery: No Joint Replacement: Yes (Bilateral KNEE replacements) Oral Surgery: Yes Thoracic Surgery: No Other Surgery: Yes (THYOIDECTOMY;SPLEENECTOMY) Social History Alcohol Use: No Tobacco Use: No Substance Use: No Allergies-Medications (Allergen,Severity, Reaction): Coded Allergies: doxycycline (Unverified Allergy, Severe, Anaphylaxis, 05/04/18) sulfamethoxazole (Unverified Allergy, Severe, Anaphylaxis, 05/04/18) trimethoprim (Unverified Allergy, Severe, Anaphylaxis, 05/04/18) Reported Meds & Prescriptions Reported Meds & Active Scripts Active Furosemide 40 Mg Tab 40 Mg PO DAILY Reported Vitamin D-1000 (Cholecalciferol) 1,000 Unit Tab 1,000 Units PO DAILY Atenolol 50 Mg Tab 50 Mg PO DAILY Zolpidem (Zolpidem Tartrate) 10 Mg Tab 10 Mg PO HS PRN Flexeril (Cyclobenzaprine HCl) 10 Mg Tab 10 Mg PO BID Hydrocodone-Acetaminophen 7.5-300 Mg Tab 1 Tab PO BID PRN Lyrica (Pregabalin) 75 Mg Cap 75 Mg PO BID Calcitriol 0.25 Mcg Cap 0.25 Mcg PO DAILY Allopurinol 100 Mg Tab 100 Mg PO DAILY Amlodipine (Amlodipine Besylate) 10 Mg Tab 10 Mg PO DAILY Levothyroxine (Levothyroxine Sodium) 137 Mcg Tab 137 Mcg PO DAILY Omeprazole 20 Mg Tab 20 Mg PO DAILY Review of Systems Except as stated in HPI: all other systems reviewed are Neg Physical Exam Narrative GENERAL: Very pleasant, well-nourished female patient, sitting up in bed, appears mildly short of breath but without distress. SKIN: Focused skin assessment warm/dry. HEAD: Atraumatic. Normocephalic. EYES: Pupils equal and round. No scleral icterus. No injection or drainage. ENT: No nasal bleeding or discharge. Mucous membranes pink and moist. NECK: Trachea midline. No JVD. CARDIOVASCULAR: Tachycardic rate and rhythm. 2/6 systolic murmur appreciated. RESPIRATORY: No accessory muscle use. Diminished throughout to auscultation. Breath sounds equal bilaterally. GASTROINTESTINAL: Abdomen soft, non-tender, nondistended. No guarding. No rebound tenderness hepatic and splenic margins not palpable. MUSCULOSKELETAL: No obvious deformities. No clubbing. No cyanosis. No edema. Distal pulses are palpable. Cap refills within normal limits. NEUROLOGICAL: Awake and alert. No obvious cranial nerve deficits. Motor grossly within normal limits. Normal speech. PSYCHIATRIC: Appropriate mood and affect; insight and judgment normal. Data Data Last Documented VS Vital Signs Date Time Temp Pulse Resp B/P (MAP) Pulse Ox O2 Delivery O2 Flow Rate FiO2 05/04/18 16:40 99 135/59 (84) 141/65 (90) 05/04/18 16:01 Nasal Cannula 2.00 05/04/18 16:01 93 05/04/18 15:08 98.5 22 Orders Orders Electrocardiogram (05/04/18 16:02) Basic Metabolic Panel (Bmp) (05/04/18 16:02) Ckmb (Isoenzyme) Profile (05/04/18 16:02) Complete Blood Count With Diff (05/04/18 16:02) Magnesium (Mg) (05/04/18 16:02) Prothrombin Time / Inr (Pt) (05/04/18 16:02) Act Partial Throm Time (Ptt) (05/04/18 16:02) Troponin I (05/04/18 16:02) Ecg Monitoring (05/04/18 16:02) Bilateral Bp Monitoring (05/04/18 16:02) Iv Access Insert/Monitor (05/04/18 16:02) Oximetry (05/04/18 16:02) Oxygen Administration (05/04/18 16:02) Aspirin Chew (Aspirin Chew) (05/04/18 16:15) Sodium Chloride 0.9% Flush (Ns Flush) (05/04/18 16:15) Chest, Pa & Lat (05/04/18 16:02) Urinalysis - C+S If Indicated (05/04/18 17:29) CKMB (05/04/18 16:10) CKMB% (05/04/18 16:10) Ventilation & Perfusion Scan (05/04/18 ) Blood Culture (05/04/18 18:10) Lactic Acid Sepsis Protocol (05/04/18 18:10) Ct Thorax/ Chest Wo Iv Contras (05/04/18 ) Vancomycin Inj (Vancomycin Inj) (05/04/18 18:30) Piperacil-Tazo 2.25 Gm Premix (Zosyn 2.2 (05/04/18 18:30) Admit Order (Ed Use Only) (05/04/18 18:33) Labs Laboratory Tests Test 05/04/18 16:10 White Blood Count 28.4 TH/MM3 Red Blood Count 2.95 MIL/MM3 Hemoglobin 9.5 GM/DL Hematocrit 29.1 % Mean Corpuscular Volume 98.5 FL Mean Corpuscular Hemoglobin 32.3 PG Mean Corpuscular Hemoglobin Concent 32.8 % Red Cell Distribution Width 14.4 % Platelet Count 194 TH/MM3 Mean Platelet Volume 12.0 FL Neutrophils (%) (Auto) 57.2 % Lymphocytes (%) (Auto) 30.6 % Monocytes (%) (Auto) 10.3 % Eosinophils (%) (Auto) 0.2 % Basophils (%) (Auto) 1.7 % Neutrophils # (Auto) 16.2 TH/MM3 Lymphocytes # (Auto) 8.7 TH/MM3 Monocytes # (Auto) 2.9 TH/MM3 Eosinophils # (Auto) 0.1 TH/MM3 Basophils # (Auto) 0.5 TH/MM3 CBC Comment AUTO DIFF Differential Total Cells Counted 100 Neutrophils % (Manual) 55 % Band Neutrophils % 17 % Lymphocytes % 22 % Monocytes % 6 % Neutrophils # (Manual) 20.4 TH/MM3 Differential Comment FINAL DIFF MANUAL Platelet Estimate NORMAL Platelet Morphology Comment ENLARGED Target Cells 3+ [place] Bodies PRESENT Prothrombin Time 11.7 SEC Prothromb Time International Ratio 1.2 RATIO Activated Partial Thromboplast Time 33.1 SEC Blood Urea Nitrogen 40 MG/DL Creatinine 3.03 MG/DL Random Glucose 132 MG/DL Calcium Level 8.4 MG/DL Magnesium Level 1.8 MG/DL Sodium Level 138 MEQ/L Potassium Level 4.7 MEQ/L Chloride Level 98 MEQ/L Carbon Dioxide Level 31.7 MEQ/L Anion Gap 8 MEQ/L Estimat Glomerular Filtration Rate 19 ML/MIN Total Creatine Kinase 332 U/L Creatine Kinase MB LESS THAN 0.5 NG/ML Creatine Kinase MB % 0.2 % Troponin I 0.09 NG/ML MDM Medical Decision Making Medical Screen Exam Complete: Yes Emergency Medical Condition: Yes Medical Record Reviewed: Yes Differential Diagnosis ACS versus PE versus pneumonia versus CHF Narrative Course 62-year-old female presents emergency department for evaluation. Patient appears without distress. Patient is tachycardic otherwise vital signs are stable. Lung sounds are diminished throughout. EKG is reviewed by my attending and his sinus tach. No ST elevation or depression. Patient is given aspirin and nitroglycerin. Laboratory Tests Test 05/04/18 16:10 White Blood Count 28.4 TH/MM3 Red Blood Count 2.95 MIL/MM3 Hemoglobin 9.5 GM/DL Hematocrit 29.1 % Mean Corpuscular Volume 98.5 FL Mean Corpuscular Hemoglobin 32.3 PG Mean Corpuscular Hemoglobin Concent 32.8 % Red Cell Distribution Width 14.4 % Platelet Count 194 TH/MM3 Mean Platelet Volume 12.0 FL Neutrophils (%) (Auto) 57.2 % Lymphocytes (%) (Auto) 30.6 % Monocytes (%) (Auto) 10.3 % Eosinophils (%) (Auto) 0.2 % Basophils (%) (Auto) 1.7 % Neutrophils # (Auto) 16.2 TH/MM3 Lymphocytes # (Auto) 8.7 TH/MM3 Monocytes # (Auto) 2.9 TH/MM3 Eosinophils # (Auto) 0.1 TH/MM3 Basophils # (Auto) 0.5 TH/MM3 CBC Comment AUTO DIFF Differential Total Cells Counted 100 Neutrophils % (Manual) 55 % Band Neutrophils % 17 % Lymphocytes % 22 % Monocytes % 6 % Neutrophils # (Manual) 20.4 TH/MM3 Differential Comment FINAL DIFF MANUAL Platelet Estimate NORMAL Platelet Morphology Comment ENLARGED Target Cells 3+ [place] Bodies PRESENT Prothrombin Time 11.7 SEC Prothromb Time International Ratio 1.2 RATIO Activated Partial Thromboplast Time 33.1 SEC Blood Urea Nitrogen 40 MG/DL Creatinine 3.03 MG/DL Random Glucose 132 MG/DL Calcium Level 8.4 MG/DL Magnesium Level 1.8 MG/DL Sodium Level 138 MEQ/L Potassium Level 4.7 MEQ/L Chloride Level 98 MEQ/L Carbon Dioxide Level 31.7 MEQ/L Anion Gap 8 MEQ/L Estimat Glomerular Filtration Rate 19 ML/MIN Total Creatine Kinase 332 U/L Creatine Kinase MB LESS THAN 0.5 NG/ML Creatine Kinase MB % 0.2 % Troponin I 0.09 NG/ML Patient has neutrophilia of 28.4. Bandemia of 17. Troponin is elevated 0.09. Patient's creatinine is slightly elevated from her baseline at 3.03. Patient is given IV vancomycin and Zosyn. VQ scan is ordered as well as CT imaging without contrast for the chest. Plan is discussed with my attending physician. At this time she does not want to move forward with heparin drip for elevated troponin. Patient will be admitted to the [facility]. Sepsis Criteria SIRS Criteria (2 or more): Heart rate over 90, WBC > 88381, < 4000 or > 10% bands Criteria Outcome: Meets SIRS criteria Diagnosis Primary Impression: SIRS (systemic inflammatory response syndrome) Additional Impressions: Chest pain Qualified Codes: R07.9 - Chest pain, unspecified Shortness of breath Elevated troponin Admitting Information Admitting Physician Requests: Admit Condition: Stable Maryann Palma May 04, 2018 16:04
[2018-05-04] MEDS ORDERED: SODIUM CHLORIDE 0.9% FLUSH 10 ML FLUSH IVF PRN (16:15)
[2018-05-04] MEDS ORDERED: ASPIRIN 81 MG CHEW TAB PO ONE (16:15)
[2018-05-04] MEDS ORDERED: ATEN50TA PO (16:30)
[2018-05-04] MEDS ORDERED: VITA1000 PO (16:30)
[2018-05-04 16:34] LABS: AUTOMATED NEUTROPHIL # 16.2 TH/MM3 (1.8-7.7); BASOPHIL # 0.5 TH/MM3 (0-0.2); BASOPHIL % 1.7 % (0.0-2.0); EOSINOPHIL # 0.1 TH/MM3 (0-0.4); EOSINOPHIL % 0.2 % (0.0-4.0); HEMATOCRIT 29.1 % (35.0-46.0); HEMOGLOBIN 9.5 GM/DL (11.6-15.3); LYMPH % 30.6 % (9.0-44.0); LYMPHOCYTE # 8.7 TH/MM3 (1.0-4.8); MEAN CELL VOLUME 98.5 FL (80.0-100.0); MEAN CORPUSCULAR HEMOGLOBIN 32.3 PG (27.0-34.0); MEAN CORPUSCULAR HGB CONC 32.8 % (32.0-36.0); MONO % 10.3 % (0.0-8.0); MONOCYTE # 2.9 TH/MM3 (0-0.9); NEUT % 57.2 % (16.0-70.0); PLATELET COUNT 194 TH/MM3 (150-450); RED BLOOD COUNT 2.95 MIL/MM3 (4.00-5.30); RED CELL DISTRIBUTION WIDTH 14.4 % (11.6-17.2); WHITE BLOOD COUNT 28.4 TH/MM3 (4.0-11.0)
[2018-05-04 16:40] VITALS: BP_SYST 135; BP_SYST 141; BP_DIAS 59; BP_DIAS 65; PULSE 99
[2018-05-04 16:43] LABS: INTERNATIONAL NORMALIZED RATIO 1.2 RATIO; PROTHROMBIN TIME - PATIENT 11.7 SEC (9.8-11.6)
--- NOTE | 2018-05-04 16:46 | RADRPT ---
EXAM DATE: 05/04/2018 4:41 PM EDT AGE/SEX: 62 years / Female INDICATIONS: Chest pain and shortness of breath. CLINICAL DATA: This is the patient's initial encounter. Patient reports that signs and symptoms have been present for 1 week and indicates a pain score of 4/10. MEDICAL/SURGICAL HISTORY: . Pneumonia. None. COMPARISON: No prior exams available for comparison. FINDINGS: PA and lateral views of the chest demonstrate the lungs to be symmetrically aerated without evidence of mass, infiltrate or effusion. The cardiomediastinal contours are unremarkable. Osseous structures are intact. CONCLUSION: No acute disease. Electronically signed by: Brannon Manzano MD 05/04/2018 4:45 PM EDT
[2018-05-04 17:10] LABS: BANDS 17 % (0-6); LYMPHOCYTES 22 % (9-44); MONOCYTES 6 % (0-8); NEUTROPHIL # MANUAL DIFF 20.4 TH/MM3 (1.8-7.7); POLYS (SEG NEUTROPHILS) 55 % (16-70)
[2018-05-04 17:11] LABS: TARGET CELLS 3+ (NORMAL)
[2018-05-04 17:12] LABS: HOWELL-JOLLY BODIES PRESENT (NONE SEEN)
[2018-05-04 17:35] LABS: BICARBONATE 31.7 MEQ/L (21.0-32.0); BLOOD UREA NITROGEN 40 MG/DL (7-18); CALCIUM 8.4 MG/DL (8.5-10.1); CHLORIDE 98 MEQ/L (98-107); CREATININE 3.03 MG/DL (0.50-1.00); GLOMERULAR FILTRATION RATE 19 ML/MIN (>89); GLUCOSE,RANDOM 132 MG/DL (74-106); MAGNESIUM 1.8 MG/DL (1.5-2.5); SODIUM (NA) 138 MEQ/L (136-145); TROPONIN I 0.09 NG/ML (0.02-0.05)
[2018-05-04] MEDS ORDERED: VANCOMYCIN INJ 1,000 MG in SODIUM CHLOR 0.9% 250 ML INJ 250 ML IV ONE (18:30)
[2018-05-04] MEDS ORDERED: PIPERACIL-TAZO 2.25 GM PREMIX 50 ML IV ONE (18:30)
--- NOTE | 2018-05-04 18:32 | PD ---
Physical Exam Narrative I, Dr. Contreras, have reviewed the advance practice practitioner's documentation and am in agreement, met with the patient face to face, made the diagnosis, and the medical decision making was done by me. *My assessment and Findings: Please see mid-level provider note for full history and physical. Presents complaining of weakness and headache and chest pain. His pain described as midsternal with radiation to her back, 8 out of 10 , no pain currently, intermittent, worse with exertion, alleviated with rest. Reporting some subjective fever and chills and shortness of breath with the chest pain. EKG shows sinus tach with LVH. Increase white blood cell count, BUN, creatinine, glucose, CK, troponin. Chest x-ray negative for any acute process. Patient given aspirin, nitroglycerin, IV Vanco and Zosyn. VQ scan and CT chest ordered. Patient will be admitted. Please see mid-level provider note for further workup results. [-] Data Data Last Documented VS Vital Signs Date Time Temp Pulse Resp B/P (MAP) Pulse Ox O2 Delivery O2 Flow Rate FiO2 05/04/18 16:40 99 135/59 (84) 141/65 (90) 05/04/18 16:01 Nasal Cannula 2.00 05/04/18 16:01 93 05/04/18 15:08 98.5 22 Orders Orders Electrocardiogram (05/04/18 16:02) Basic Metabolic Panel (Bmp) (05/04/18 16:02) Ckmb (Isoenzyme) Profile (05/04/18 16:02) Complete Blood Count With Diff (05/04/18 16:02) Magnesium (Mg) (05/04/18 16:02) Prothrombin Time / Inr (Pt) (05/04/18 16:02) Act Partial Throm Time (Ptt) (05/04/18 16:02) Troponin I (05/04/18 16:02) Ecg Monitoring (05/04/18 16:02) Bilateral Bp Monitoring (05/04/18 16:02) Iv Access Insert/Monitor (05/04/18 16:02) Oximetry (05/04/18 16:02) Oxygen Administration (05/04/18 16:02) Aspirin Chew (Aspirin Chew) (05/04/18 16:15) Sodium Chloride 0.9% Flush (Ns Flush) (05/04/18 16:15) Chest, Pa & Lat (05/04/18 16:02) Urinalysis - C+S If Indicated (05/04/18 17:29) CKMB (05/04/18 16:10) CKMB% (05/04/18 16:10) Ventilation & Perfusion Scan (05/04/18 ) Blood Culture (05/04/18 18:10) Lactic Acid Sepsis Protocol (05/04/18 18:10) Ct Thorax/ Chest Wo Iv Contras (05/04/18 ) Vancomycin Inj (Vancomycin Inj) (05/04/18 18:30) Piperacil-Tazo 2.25 Gm Premix (Zosyn 2.2 (05/04/18 18:30) Admit Order (Ed Use Only) (05/04/18 18:33) Labs Laboratory Tests Test 05/04/18 16:10 White Blood Count 28.4 TH/MM3 Red Blood Count 2.95 MIL/MM3 Hemoglobin 9.5 GM/DL Hematocrit 29.1 % Mean Corpuscular Volume 98.5 FL Mean Corpuscular Hemoglobin 32.3 PG Mean Corpuscular Hemoglobin Concent 32.8 % Red Cell Distribution Width 14.4 % Platelet Count 194 TH/MM3 Mean Platelet Volume 12.0 FL Neutrophils (%) (Auto) 57.2 % Lymphocytes (%) (Auto) 30.6 % Monocytes (%) (Auto) 10.3 % Eosinophils (%) (Auto) 0.2 % Basophils (%) (Auto) 1.7 % Neutrophils # (Auto) 16.2 TH/MM3 Lymphocytes # (Auto) 8.7 TH/MM3 Monocytes # (Auto) 2.9 TH/MM3 Eosinophils # (Auto) 0.1 TH/MM3 Basophils # (Auto) 0.5 TH/MM3 CBC Comment AUTO DIFF Differential Total Cells Counted 100 Neutrophils % (Manual) 55 % Band Neutrophils % 17 % Lymphocytes % 22 % Monocytes % 6 % Neutrophils # (Manual) 20.4 TH/MM3 Differential Comment FINAL DIFF MANUAL Platelet Estimate NORMAL Platelet Morphology Comment ENLARGED Target Cells 3+ Red-[place] Bodies PRESENT Prothrombin Time 11.7 SEC Prothromb Time International Ratio 1.2 RATIO Activated Partial Thromboplast Time 33.1 SEC Blood Urea Nitrogen 40 MG/DL Creatinine 3.03 MG/DL Random Glucose 132 MG/DL Calcium Level 8.4 MG/DL Magnesium Level 1.8 MG/DL Sodium Level 138 MEQ/L Potassium Level 4.7 MEQ/L Chloride Level 98 MEQ/L Carbon Dioxide Level 31.7 MEQ/L Anion Gap 8 MEQ/L Estimat Glomerular Filtration Rate 19 ML/MIN Total Creatine Kinase 332 U/L Creatine Kinase MB LESS THAN 0.5 NG/ML Creatine Kinase MB % 0.2 % Troponin I 0.09 NG/ML MDM Supervised Visit with SIRENA: Yes Sepsis Criteria SIRS Criteria (2 or more): Heart rate over 90, WBC > 87947, < 4000 or > 10% bands Sepsis Criteria (SIRS+source): Infect source susp/known Diagnosis Primary Impression: Chest pain Qualified Codes: R07.9 - Chest pain, unspecified Admitting Information Admitting Physician Requests: Alexandria Ta MD May 04, 2018 18:32
[2018-05-04] MEDS ORDERED: SODIUM CHLORIDE 0.9% FLUSH 10 ML FLUSH IV FLUSH PRN (18:45)
[2018-05-04] MEDS ORDERED: ACETAMINOPHEN 325 MG TAB PO PRN ×2 (18:45)
[2018-05-04] MEDS ORDERED: MAGNESIUM HYDROXIDE SUSP 30 ML CUP PO PRN (18:45)
[2018-05-04] MEDS ORDERED: RESP: ALBUTEROL 2.5 MG/IPRATROPIUM 0.5 MG NEB (PRN) NEB ×2 (18:45→19:00)
[2018-05-04] MEDS ORDERED: NALOXONE HCL 0.4 MG/ML AMP IV PUSH PRN (18:45)
[2018-05-04] MEDS ORDERED: METOCLOPRAMIDE HCL 10 MG/2 ML VIAL IV PUSH PRN (18:45)
--- NOTE | 2018-05-04 18:59 | HHI.HP ---
[facility] Unknown Admission Diagnosis SIRS; unknown source; dyspnea/chest pain; elevated trop Diagnoses: (1) SIRS (systemic inflammatory response syndrome) Diagnosis: Principal (2) Elevated troponin Diagnosis: Principal (3) BRANDT (acute kidney injury) Diagnosis: Principal Travel History International Travel<30 Days: No Contact w/Intl Traveler <30 Da: No Traveled to Known Affected Are: No History of Present Illness This is a 62-year-old female with a PMH of HTN, Hodgkin's Disease in Remission, Gout, Chronic Anemia and CKD who presented to the ER w/ c/o generalized weakness , SOB and CP x3 days. States she had a gout flare and started Medrol Dosepak last Monday (6 days ago), few days after states she started feeling weak/ tired and short of breath so she stopped the steroids. Denies fever, chills or cough. No sick contacts. On arrival, BP 136/61, HR 107, O2 sat 93% on 2L NC, Afebrile. WBC 28.4. Hemoglobin 9.5, previously 8.2 on 10/12/2017. Bands 17%. Creatinine 3.03, previously 2.18 on 10/12/2017. INR 1.2. Trop 0.09. UA pending. CXR with no acute findings. S/p Vanc/Zosyn in ER. Review of Systems Except as stated in HPI: all other systems reviewed are Neg ROS: 14 point review of systems otherwise negative. Past Family Social History Past Medical History PMH: HTN, Hodgkin's Disease in Remission, Gout, Chronic Anemia and CKD Past Surgical History PAST SURGICAL HISTORY: Splenectomy, Cholecystectomy, Thyroidectomy, Bilateral Knee Replacements Allergies: Coded Allergies: doxycycline (Unverified Allergy, Severe, Anaphylaxis, 05/04/18) sulfamethoxazole (Unverified Allergy, Severe, Anaphylaxis, 05/04/18) trimethoprim (Unverified Allergy, Severe, Anaphylaxis, 05/04/18) Family History PAST FAMILY HISTORY: Reviewed. No h/o DM or CAD Social History PAST SOCIAL HISTORY: Negative for alcohol, tobacco or drugs. Physical Exam Vital Signs Vital Signs Date Time Temp Pulse Resp B/P (MAP) Pulse Ox O2 Delivery O2 Flow Rate FiO2 05/04/18 16:40 99 135/59 (84) 141/65 (90) 05/04/18 16:01 Nasal Cannula 2.00 05/04/18 16:01 93 Nasal Cannula 2.00 05/04/18 15:08 98.5 107 22 136/61 (86) 93 Physical Exam PE: GENERAL: Extremely pleasant middle-aged black female in no acute distress. HEENT: PERRLA, EOMI. No scleral icterus or conjunctival pallor. No lid lag or facial droop. CARDIOVASCULAR: Regular rate and rhythm. No obvious murmurs to auscultation. No chest tenderness to palpation. RESPIRATORY: No obvious rhonchi or wheezing. Clear to auscultation. Breath sounds equal bilaterally. GASTROINTESTINAL: Abdomen soft, non-tender, nondistended. BS normal. MUSCULOSKELETAL: Extremities without clubbing, cyanosis, or edema. No obvious deformities. NEUROLOGICAL: Awake, alert and oriented x4. No focal neurologic deficits. Moving both upper and lower extremities spontaneously. Laboratory Laboratory Tests Test 05/04/18 16:10 05/04/18 18:35 White Blood Count 28.4 Red Blood Count 2.95 Hemoglobin 9.5 Hematocrit 29.1 Mean Corpuscular Volume 98.5 Mean Corpuscular Hemoglobin 32.3 Mean Corpuscular Hemoglobin Concent 32.8 Red Cell Distribution Width 14.4 Platelet Count 194 Mean Platelet Volume 12.0 Neutrophils (%) (Auto) 57.2 Lymphocytes (%) (Auto) 30.6 Monocytes (%) (Auto) 10.3 Eosinophils (%) (Auto) 0.2 Basophils (%) (Auto) 1.7 Neutrophils # (Auto) 16.2 Lymphocytes # (Auto) 8.7 Monocytes # (Auto) 2.9 Eosinophils # (Auto) 0.1 Basophils # (Auto) 0.5 CBC Comment AUTO DIFF Differential Total Cells Counted 100 Neutrophils % (Manual) 55 Band Neutrophils % 17 Lymphocytes % 22 Monocytes % 6 Neutrophils # (Manual) 20.4 Differential Comment FINAL DIFF MANUAL Platelet Estimate NORMAL Platelet Morphology Comment ENLARGED Target Cells 3+ Red-[place] Bodies PRESENT Prothrombin Time 11.7 Prothromb Time International Ratio 1.2 Activated Partial Thromboplast Time 33.1 Blood Urea Nitrogen 40 Creatinine 3.03 Random Glucose 132 Calcium Level 8.4 Magnesium Level 1.8 Sodium Level 138 Potassium Level 4.7 Chloride Level 98 Carbon Dioxide Level 31.7 Anion Gap 8 Estimat Glomerular Filtration Rate 19 Total Creatine Kinase 332 Creatine Kinase MB LESS THAN 0.5 Creatine Kinase MB % 0.2 Troponin I 0.09 Date/Time Source Procedure Growth Status 05/04/18 18:35 Blood Peripheral Aerobic Blood Culture Pending Received 05/04/18 18:35 Blood Peripheral Anaerobic Blood Culture Pending Received Result Diagram: 05/04/18 1610 05/04/18 1610 Caprini VTE Risk Assessment Caprini VTE Risk Assessment: Mod/High Risk (score >= 2) Caprini Risk Assessment Model Point Value = 1 Point Value = 2 Point Value = 3 Point Value = 5 Age 41-60 Minor surgery BMI > 25 kg/m2 Swollen legs Varicose veins or History of unexplained or recurrent spontaneous Oral contraceptives or hormone replacement Sepsis (< 1 month) Serious lung disease, including pneumonia (< 1 month) Abnormal pulmonary function Acute myocardial infarction Congestive heart failure (< 1 month) History of inflammatory bowel disease Medical patient at bed rest Age 61-74 Arthroscopic surgery Major open surgery (> 45 min) Laparoscopic surgery (> 45 min) Malignancy Confined to bed (> 72 hours) Immobilizing plaster cast Central venous access Age >= 75 History of VTE Family history of VTE Factor V Leiden Prothrombin 20340P Lupus anticoagulant Anticardiolipin antibodies Elevated serum homocysteine Heparin-induced thrombocytopenia Other congenital or acquired thrombophilia Stroke (< 1 month) Elective arthroplasty Hip, pelvis, or leg fracture Acute spinal cord injury (< 1 month) Prophylaxis Regimen Total Risk Factor Score Risk Level Prophylaxis Regimen 0-1 Low Early ambulation 2 Moderate Order ONE of the following: *Sequential Compression Device (SCD) *Heparin 5000 units SQ BID 3-4 Higher Order ONE of the following medications: *Heparin 5000 units SQ TID *Enoxaparin/Lovenox 40 mg SQ daily (WT < 150 kg, CrCl > 30 mL/min) *Enoxaparin/Lovenox 30 mg SQ daily (WT < 150 kg, CrCl > 10-29 mL/min) *Enoxaparin/Lovenox 30 mg SQ BID (WT < 150 kg, CrCl > 30 mL/min) AND/OR *Sequential Compression Device (SCD) 5 or more Highest Order ONE of the following medications: *Heparin 5000 units SQ TID (Preferred with Epidurals) *Enoxaparin/Lovenox 40 mg SQ daily (WT < 150 kg, CrCl > 30 mL/min) *Enoxaparin/Lovenox 30 mg SQ daily (WT < 150 kg, CrCl > 10-29 mL/min) *Enoxaparin/Lovenox 30 mg SQ BID (WT < 150 kg, CrCl > 30 mL/min) AND *Sequential Compression Device (SCD) Assessment and Plan Problem List: (1) SIRS (systemic inflammatory response syndrome) ICD Code: R65.10 - Systemic inflammatory response syndrome (SIRS) of non- infectious origin without acute organ dysfunction Status: Acute (2) Elevated troponin ICD Code: R74.8 - Abnormal levels of other serum enzymes Status: Acute (3) BRANDT (acute kidney injury) ICD Code: N17.9 - Acute kidney failure, unspecified Assessment and Plan A/P: 1. SIRS: HR 107, WBC 28.4 w/ 17% Bands, no obvious source-CXR w/ no acute findings, images reviewed by me. U/a pending, will follow. Follow up Blood Cultures, continue w/ broad spectrum antibiotics at this time. IVF for hydration, monitor I/O. 2. Elevated Trop: Trop 0.09, no c/o chest pain at this time. Telemetry, check serial cardiac enzymes to eval for possible ischemia, V/Q and CT Chest ordered, will follow results. Consult Cardiology for further evaluation/ intervention. ASA, Statin, B-Kristan. Check Lipid Profile, Hgb A1c 3. BRANDT: Acute on Chronic. Creatinine 30.3, previously 2.18 on 10/12/17, monitor I/O, no evidence of fluid overload at this time, will give IVF for hydration, repeat labs in am. 4. DVT Prophylaxis: Heparin gtt 5. Social work for d/c planning as needed 6. Case discussed w/ ER physician at length, labs/records/imaging reviewed by me. Physician Certification 2 Midnight Certification Type: Admission for Inpatient Services Order for Inpatient Services The services are ordered in accordance with Medicare regulations or non- Medicare payer requirements, as applicable. In the case of services not specified as inpatient-only, they are appropriately provided as inpatient services in accordance with the 2-midnight benchmark. Estimated LOS (days): 2 days is the estimated time the patient will need to remain in the hospital, assuming treatment plan goals are met and no additional complications. Post-Hospital Plan: Not yet determined Elizabeth Obrien MD May 04, 2018 18:59
[2018-05-04] MEDS ORDERED: Vancomycin Consult Pharmacy 1 EA OTHER SCH (19:00)
[2018-05-04] MEDS ORDERED: LORazepam 2 MG/ML VIAL IV PUSH ONE (19:00)
[2018-05-04 19:19] LABS: BACTERIA, URINE MANY /hpf; BILIRUBIN, URINE NEG (NEG); BLOOD, URINE MOD (NEG); GLUCOSE,URINE NEG (NEG); HYALINE CAST, URINE 3 /lpf (RARE); KETONE, URINE NEG (NEG); NITRITE,URINE NEG (NEG); SQUAMOUS EPITHELIAL CELL URINE 1 /hpf (0-5); URINE COLOR YELLOW (YELLW/STRAW); URINE LEUKOCYTE ESTERASE LARGE (NEG); WHITE BLOOD CELL CLUMPS FEW
[2018-05-04 19:22] LABS: LACTIC ACID SEPSIS PROTOCOL 2.9 mmol/L (0.4-2.0)
[2018-05-04] MEDS: SODIUM CHLOR 0.9% 1000 ML INJ 1,000 ML IV SCH (19:41)
[2018-05-04 19:42] VITALS: O2SAT 94
[2018-05-04] MEDS: SODIUM CHLORIDE 0.9% FLUSH 10 ML FLUSH IV FLUSH SCH (19:42)
[2018-05-04 19:47] VITALS: BP 144/72; PULSE 88; RESP 20; O2SAT 98
[2018-05-04] MEDS ORDERED: VANCOMYCIN 1,000 MG/NS 250 ML IV ONE ×2 (20:00)
[2018-05-04] MEDS: HEPARIN SODIUM - SQ 10,000 UNITS/ML VIAL SQ SCH (20:19)
[2018-05-04 20:38] VITALS: BP 125/58; PULSE 78; RESP 19; TEMP 98.3; O2SAT 94
--- NOTE | 2018-05-04 22:30 | RADRPT ---
EXAM DATE: 05/04/2018 10:18 PM EDT AGE/SEX: 62 years / Female INDICATIONS: Dyspnea for 3 days. CLINICAL DATA: This is the patient's initial encounter. Patient reports that signs and symptoms have been present for 1 day and indicates a pain score of 0/10. MEDICAL/SURGICAL HISTORY: Lymphoma. Hypertension. Renal insufficiency, chronic. Thyroidectomy . Cholecystectomy. Splenectomy. COMPARISON: No prior exams available for comparison. DOSE: 0.99 mCi Tc99m DTPA aerosol 8.8 mCi Tc99m MAA IV TECHNIQUE: Following five minutes of tidal breathing of DTPA aerosol, planar images of the lungs wer e performed in eight projections. The patient was then injected with MAA, and eight-view perfusion s can was performed. FINDINGS: There is a homogeneous pattern of aerosol delivery to the periphery of both lungs. No focal ventilat ory defects are seen. The perfusion lung scan demonstrates a homogenous pattern of uptake in both lungs. No segmental or s ubsegmental defects are seen. CONCLUSION: 1. Negative for pulmonary embolus. Electronically signed by: Jt Davis MD 05/04/2018 10:29 PM EDT
--- NOTE | 2018-05-04 22:45 | RADRPT ---
EXAM DATE: 05/04/2018 10:38 PM EDT AGE/SEX: 62 years / Female INDICATIONS: Shortness of breath with weakness. CLINICAL DATA: This is the patient's initial encounter. Patient reports that signs and symptoms have been present for 4 - 6 days and indicates a pain score of 0/10. MEDICAL/SURGICAL HISTORY: Cardiovascular disease. . RADIATION DOSE: 19.49 CTDI (mGy) ; Patient body habitus COMPARISON: [facility] [place], CT PULMONARY ANGIOGRAM, 10/08/2017. . TECHNIQUE: Multiple contiguous axial images were obtained through the chest without contrast. Image s were obtained in suspended respiration using multiple row detector helical technique. Using automa joann exposure control and adjustment of the mA and/or kV according to patient size, radiation dose was kept as low as reasonably achievable to obtain optimal diagnostic quality images. FINDINGS: There is trace pleural fluid on the left. Subsegmental dependent opacity in both lungs probably repre sents atelectasis. There is some groundglass opacity probably representing mild pulmonary edema. Hear t size is enlarged. Moderate coronary artery calcifications. Mitral annular calcifications also prese nt. No acute findings in the upper abdomen. Cyst in left lobe of liver. CONCLUSION: 1. Trace left pleural effusion. Dependent atelectasis in both lungs. Groundglass opacity most charac teristic of a mild edema pattern associated with some mild air trapping. Sign Electronically signed by: Jt Davis MD 05/04/2018 10:44 PM EDT
[2018-05-05] VITALS (8 sets, daily range): BP systolic 100–148; BP diastolic 54–78; PULSE 78–98; RESP 16–20; TEMP 97.2–98.5; O2SAT 90–96
[2018-05-05] MEDS: ZOLPIDEM TARTRATE 10 MG TAB PO PRN ×2 (00:14→21:19)
[2018-05-05] MEDS: PREGABALIN 75 MG CAP PO SCH ×3 (00:14→20:22)
[2018-05-05 01:51] LABS: TROPONIN I 0.08 NG/ML (0.02-0.05)
[2018-05-05] MEDS: ACETAMINOPHEN/HYDROcodone 325 MG/7.5 MG TAB PO PRN ×2 (02:05→21:19)
[2018-05-05] MEDS: PIPERACIL-TAZO 2.25 GM PREMIX 50 ML IV SCH ×4 (02:05→21:19)
[2018-05-05] MEDS ORDERED: PIPERACIL-TAZO 2.25 GM PREMIX 50 ML IV SCH (03:00)
[2018-05-05 06:04] LABS: AUTOMATED NEUTROPHIL # 12.8 TH/MM3 (1.8-7.7); BASOPHIL # 0.6 TH/MM3 (0-0.2); BASOPHIL % 2.3 % (0.0-2.0); EOSINOPHIL # 0.1 TH/MM3 (0-0.4); EOSINOPHIL % 0.4 % (0.0-4.0); HEMATOCRIT 24.5 % (35.0-46.0); HEMOGLOBIN 8.1 GM/DL (11.6-15.3); LYMPH % 35.1 % (9.0-44.0); LYMPHOCYTE # 8.7 TH/MM3 (1.0-4.8); MEAN CELL VOLUME 99.4 FL (80.0-100.0); MEAN CORPUSCULAR HEMOGLOBIN 32.7 PG (27.0-34.0); MEAN CORPUSCULAR HGB CONC 32.9 % (32.0-36.0); MEAN PLATELET VOLUME 12.5 FL (7.0-11.0); MONO % 10.8 % (0.0-8.0); MONOCYTE # 2.7 TH/MM3 (0-0.9); NEUT % 51.4 % (16.0-70.0); PLATELET COUNT 191 TH/MM3 (150-450); RED BLOOD COUNT 2.46 MIL/MM3 (4.00-5.30); RED CELL DISTRIBUTION WIDTH 15.1 % (11.6-17.2); WHITE BLOOD COUNT 24.9 TH/MM3 (4.0-11.0)
[2018-05-05] MEDS: LEVOTHYROXINE SODIUM 112 MCG TAB PO SCH (06:25)
[2018-05-05] MEDS: LEVOTHYROXINE SODIUM 25 MCG TAB PO SCH (06:25)
[2018-05-05] MEDS: SODIUM CHLOR 0.9% 1000 ML INJ 1,000 ML IV SCH ×2 (06:25→11:40)
[2018-05-05 06:32] LABS: ALBUMIN 1.8 GM/DL (3.4-5.0); AST (GOT) 21 U/L (15-37); BICARBONATE 27.9 MEQ/L (21.0-32.0); BLOOD UREA NITROGEN 40 MG/DL (7-18); CALCIUM 7.8 MG/DL (8.5-10.1); CHLORIDE 103 MEQ/L (98-107); CREATININE 3.03 MG/DL (0.50-1.00); GLOMERULAR FILTRATION RATE 19 ML/MIN (>89); GLUCOSE,RANDOM 101 MG/DL (74-106); SODIUM (NA) 140 MEQ/L (136-145)
[2018-05-05 06:33] LABS: ALT (GPT) 16 U/L (10-53); CHOLESTEROL 109 MG/DL (120-200)
[2018-05-05 06:37] LABS: ALKALINE PHOSPHATASE 105 U/L (45-117); HDL CHOLESTEROL 29.4 MG/DL (40.0-60.0); LDL CHOLESTEROL 58 MG/DL (0-99); TOTAL BILIRUBIN ADULT 0.8 MG/DL (0.2-1.0); TOTAL PROTEIN 7.1 GM/DL (6.4-8.2); TRIGLYCERIDES 109 MG/DL (42-150); TROPONIN I 0.08 NG/ML (0.02-0.05)
--- NOTE | 2018-05-05 08:10 | PD.CONS ---
HPI Service cardiology Consult Requested By Reason for Consult elevated troponin Primary Care Physician Unknown History of Present Illness 62 yo AAF with no prior cardiac history with CKD, hypothyroidism, HTN, Hodgkin' s disease, chronic anemia and gout who presented with progressive weakness, fatigue and exertional SOB x 2 weeks. She reports feeling not herself for the past few weeks with associated stomach discomfort and decreased oral intake. She denies chest pain, palpitations, edema or orthopnea. Labs reflect acute kidney injury with creatinine 3, WBC elevation and troponin elevation (0.09-- 0.00--0.08). UA positive for infection. EKG shows normal sinus rhythm. VQ scan negative for P.E. (Ilana Cavanaugh) Review of Systems Consitutional: DENIES: Fever, Chills, Weight gain, Weight loss Respiratory: DENIES: Cough, Snoring, Wheezing, Sputum production Cardiovascular: DENIES: Chest pain, Palpitations, Syncope, Tachycardia Gastrointestinal: DENIES: Vomiting, Change in bowel habits, Reflux, Bloody stools, Melena (Ilana Cavanaugh) Past Family Social History Allergies: Coded Allergies: doxycycline (Unverified Allergy, Severe, Anaphylaxis, 05/04/18) sulfamethoxazole (Unverified Allergy, Severe, Anaphylaxis, 05/04/18) trimethoprim (Unverified Allergy, Severe, Anaphylaxis, 05/04/18) Past Medical History HTN, Hodgkin's Disease in Remission, Gout, Chronic Anemia and CKD Past Surgical History Splenectomy, Cholecystectomy, Thyroidectomy, Bilateral Knee Replacements Reported Medications Reported Meds & Active Scripts Active Furosemide 40 Mg Tab 40 Mg PO DAILY Reported Vitamin D-1000 (Cholecalciferol) 1,000 Unit Tab 1,000 Units PO DAILY Atenolol 50 Mg Tab 50 Mg PO DAILY Zolpidem (Zolpidem Tartrate) 10 Mg Tab 10 Mg PO HS PRN Flexeril (Cyclobenzaprine HCl) 10 Mg Tab 10 Mg PO BID Hydrocodone-Acetaminophen 7.5-300 Mg Tab 1 Tab PO BID PRN Lyrica (Pregabalin) 75 Mg Cap 75 Mg PO BID Calcitriol 0.25 Mcg Cap 0.25 Mcg PO DAILY Allopurinol 100 Mg Tab 100 Mg PO DAILY Amlodipine (Amlodipine Besylate) 10 Mg Tab 10 Mg PO DAILY Levothyroxine (Levothyroxine Sodium) 137 Mcg Tab 137 Mcg PO DAILY Omeprazole 20 Mg Tab 20 Mg PO DAILY Active Ordered Medications Current Medications Medications (Trade) Dose Ordered Sig/Francy Route Start Time Stop Time Status Last Admin (NS Flush) 2 ml UNSCH PRN IV FLUSH 05/04/18 18:45 (NS Flush) 2 ml BID IV FLUSH 05/04/18 21:00 05/04/18 19:42 (Tylenol) 650 mg Q4H PRN PO 05/04/18 18:45 (Reglan Inj) 5 mg Q6H PRN IV PUSH 05/04/18 18:45 (Narcan Inj) 0.4 mg UNSCH PRN IV PUSH 05/04/18 18:45 (Milk Of Magnesia Liq) 30 ml Q12H PRN PO 05/04/18 18:45 (Duoneb Neb) 1 ampule Q2HR NEB PRN NEB 05/04/18 18:45 (Apresoline) 25 mg Q8H PRN PO 05/04/18 18:45 Piperacillin Sod/ Tazobactam Sod 50 ml @ 100 mls/hr Q6H IV 05/05/18 01:00 05/05/18 06:24 (Ecotrin Ec) 81 mg DAILY PO 05/05/18 09:00 (Duoneb Neb) 1 ampule Q4HR NEB PRN NEB 05/04/18 19:00 Pharmacy Profile Note 0 ml @ 0 mls/hr UNSCH OTHER 05/04/18 19:00 (Tenormin) 50 mg DAILY PO 05/05/18 09:00 (Rocaltrol) 0.25 mcg DAILY PO 05/05/18 09:00 (Lyrica) 75 mg BID PO 05/04/18 21:00 05/05/18 00:14 (Ambien) 10 mg HS PRN PO 05/04/18 19:00 05/05/18 00:14 (Synthroid) 25 mcg DAILY@0600 PO 05/05/18 06:00 05/05/18 06:25 (Protonix) 20 mg DAILY PO 05/05/18 09:00 (Synthroid) 112 mcg DAILY@0600 PO 05/05/18 06:00 05/05/18 06:25 Sodium Chloride 1,000 ml @ 100 mls/hr Q10H IV 05/04/18 19:15 05/05/18 06:25 (Heparin Inj) 5,000 units Q12HR SQ 05/04/18 21:00 05/04/18 20:19 ([place] 7.5-325 Mg) 1 tab BID PRN PO 05/05/18 01:15 05/05/18 02:05 Family History No h/o DM or CAD Social History Negative for alcohol, tobacco or drugs. (Ilana Cavanaugh) Physical Exam Vital Signs Vital Signs Date Time Temp Pulse Resp B/P (MAP) Pulse Ox O2 Delivery O2 Flow Rate FiO2 05/05/18 04:00 97.8 78 16 100/71 (81) 95 05/05/18 00:00 98.2 82 18 135/78 (97) 96 05/05/18 00:00 86 05/04/18 20:38 98.3 78 19 125/58 (80) 94 05/04/18 20:00 Nasal Cannula 2.00 05/04/18 19:47 88 20 144/72 (96) 98 Nasal Cannula 2.00 05/04/18 19:42 94 Nasal Cannula 2.00 05/04/18 16:40 99 135/59 (84) 141/65 (90) 05/04/18 16:01 Nasal Cannula 2.00 05/04/18 16:01 93 Nasal Cannula 2.00 05/04/18 15:08 98.5 107 22 136/61 (86) 93 Physical Exam GENERAL: SKIN: Warm and dry. HEAD: Atraumatic. Normocephalic. EYES: Pupils equal and round. No scleral icterus. ENT: No nasal bleeding or discharge. NECK: Trachea midline. No JVD. CARDIOVASCULAR: Regular rate and rhythm. + I/ systolic murmur RESPIRATORY: No accessory muscle use. Clear to auscultation. Breath sounds equal bilaterally. GASTROINTESTINAL: Abdomen soft, non-tender, nondistended. MUSCULOSKELETAL: Extremities without clubbing, cyanosis, or edema. No obvious deformities. NEUROLOGICAL: Awake and alert. No obvious cranial nerve deficits.. Normal speech. PSYCHIATRIC: Appropriate mood and affect; insight and judgment normal. Laboratory Laboratory Tests Test 05/04/18 16:10 05/04/18 18:35 05/04/18 21:08 05/05/18 00:11 White Blood Count 28.4 Red Blood Count 2.95 Hemoglobin 9.5 Hematocrit 29.1 Mean Corpuscular Volume 98.5 Mean Corpuscular Hemoglobin 32.3 Mean Corpuscular Hemoglobin Concent 32.8 Red Cell Distribution Width 14.4 Platelet Count 194 Mean Platelet Volume 12.0 Neutrophils (%) (Auto) 57.2 Lymphocytes (%) (Auto) 30.6 Monocytes (%) (Auto) 10.3 Eosinophils (%) (Auto) 0.2 Basophils (%) (Auto) 1.7 Neutrophils # (Auto) 16.2 Lymphocytes # (Auto) 8.7 Monocytes # (Auto) 2.9 Eosinophils # (Auto) 0.1 Basophils # (Auto) 0.5 CBC Comment AUTO DIFF Differential Total Cells Counted 100 Neutrophils % (Manual) 55 Band Neutrophils % 17 Lymphocytes % 22 Monocytes % 6 Neutrophils # (Manual) 20.4 Differential Comment FINAL DIFF MANUAL Platelet Estimate NORMAL Platelet Morphology Comment ENLARGED Target Cells 3+ [place] Bodies PRESENT Prothrombin Time 11.7 Prothromb Time International Ratio 1.2 Activated Partial Thromboplast Time 33.1 Blood Urea Nitrogen 40 Creatinine 3.03 Random Glucose 132 Calcium Level 8.4 Magnesium Level 1.8 Sodium Level 138 Potassium Level 4.7 Chloride Level 98 Carbon Dioxide Level 31.7 Anion Gap 8 Estimat Glomerular Filtration Rate 19 Total Creatine Kinase 332 315 Creatine Kinase MB LESS THAN 0.5 1.1 Creatine Kinase MB % 0.2 0.3 Troponin I 0.09 0.08 Urine Color YELLOW Urine Turbidity CLOUDY Urine pH 5.0 Urine Specific [place] 1.012 Urine Protein 100 Urine Glucose (UA) NEG Urine Ketones NEG Urine Occult Blood MOD Urine Nitrite NEG Urine Bilirubin NEG Urine Urobilinogen LESS THAN 2 Urine Leukocyte Esterase LARGE Urine RBC 31 Urine WBC Urine WBC Clumps FEW Urine Squamous Epithelial Cells 1 Urine Bacteria MANY Urine Hyaline Casts 3 Microscopic Urinalysis Comment CULTURE INDICATED Lactic Acid Level 2.9 0.9 Test 05/05/18 05:30 White Blood Count 24.9 Red Blood Count 2.46 Hemoglobin 8.1 Hematocrit 24.5 Mean Corpuscular Volume 99.4 Mean Corpuscular Hemoglobin 32.7 Mean Corpuscular Hemoglobin Concent 32.9 Red Cell Distribution Width 15.1 Platelet Count 191 Mean Platelet Volume 12.5 Neutrophils (%) (Auto) 51.4 Lymphocytes (%) (Auto) 35.1 Monocytes (%) (Auto) 10.8 Eosinophils (%) (Auto) 0.4 Basophils (%) (Auto) 2.3 Neutrophils # (Auto) 12.8 Lymphocytes # (Auto) 8.7 Monocytes # (Auto) 2.7 Eosinophils # (Auto) 0.1 Basophils # (Auto) 0.6 CBC Comment AUTO DIFF Blood Urea Nitrogen 40 Creatinine 3.03 Random Glucose 101 Total Protein 7.1 Albumin 1.8 Calcium Level 7.8 Alkaline Phosphatase 105 Aspartate Amino Transf (AST/SGOT) 21 Alanine Aminotransferase (ALT/SGPT) 16 Total Bilirubin 0.8 Sodium Level 140 Potassium Level 4.0 Chloride Level 103 Carbon Dioxide Level 27.9 Anion Gap 9 Estimat Glomerular Filtration Rate 19 Total Creatine Kinase 278 Creatine Kinase MB 0.9 Creatine Kinase MB % 0.3 Troponin I 0.08 Triglycerides Level 109 Cholesterol Level 109 LDL Cholesterol 58 HDL Cholesterol 29.4 Cholesterol/HDL Ratio 3.70 Date/Time Source Procedure Growth Status 05/04/18 18:35 Blood Peripheral Aerobic Blood Culture Pending Received 05/04/18 18:35 Blood Peripheral Anaerobic Blood Culture Pending Received 05/04/18 18:35 Urine Clean Catch Urine Culture Pending Received (Ilana Cavanaugh) Result Diagram: 05/05/18 0530 05/05/18 0530 Imaging Last 48 hours Impressions Chest X-Ray 05/04/18 1602 Signed Impressions: CONCLUSION: No acute disease. Lung Scan-V Nuclear Medicine 05/04/18 0000 Signed Impressions: CONCLUSION: 1. Negative for pulmonary embolus. Chest CT 05/04/18 0000 Signed Impressions: CONCLUSION: 1. Trace left pleural effusion. Dependent atelectasis in both lungs. [place] opacity most characteristic of a mild edema pattern associated with some mil d air trapping. Sign (Ilana Cavanaugh) Assessment and Plan Problem List: (1) Elevated troponin ICD Codes: R74.8 - Abnormal levels of other serum enzymes Status: Acute (2) Shortness of breath ICD Codes: R06.02 - Shortness of breath Status: Acute (3) HTN (hypertension) ICD Codes: I10 - Essential (primary) hypertension Assessment and Plan 62 yo AAF with no prior cardiac history with CKD, hypothyroidism, HTN, Hodgkin' s disease, chronic anemia and gout who presented with progressive weakness, fatigue and exertional SOB x 2 weeks. She reports feeling not herself for the past few weeks with associated stomach discomfort and decreased oral intake. She denies chest pain, palpitations, edema or orthopnea. Labs reflect acute kidney injury with creatinine 3, WBC elevation and troponin elevation (0.09-- 0.00--0.08). UA positive for infection. EKG shows normal sinus rhythm. VQ scan negative for P.E. NSTEMI- troponin elevation likely demand mediated due to acute kidney injury. no chest pain, EKG nonischemic consider lexiscan before discharge exertional dyspnea- obtain 2D echo will sign off (Ilana Cavanaugh) Assessment and Plan demand mediated troponin no history of CAD no EKG changes intermediate troponin level guideline directed medical therapy consider lexiscan prior to DC no further recommendations will sign off call with further questions (Werner Martinez MD) Ilana Cavanaugh May 05, 2018 08:10 Werner Martinez MD May 05, 2018 08:16
[2018-05-05 08:11] LABS: BANDS 12 % (0-6); BASOPHILS 1 % (0-2); LYMPHOCYTES 21 % (9-44); MONOCYTES 6 % (0-8); NEUTROPHIL # MANUAL DIFF 17.9 TH/MM3 (1.8-7.7); POLYS (SEG NEUTROPHILS) 60 % (16-70)
[2018-05-05 08:12] LABS: TARGET CELLS 1+ (NORMAL)
[2018-05-05 08:13] LABS: TOXIC VACUOLATION PRESENT (NONE SEEN)
[2018-05-05] MEDS: PANTOPRAZOLE SOD 20 MG DELAYED RELEASE TAB PO SCH (09:49)
[2018-05-05] MEDS: ATENOLOL 50 MG TAB PO SCH (09:49)
[2018-05-05] MEDS: CALCITRIOL 0.25 MCG CAP PO SCH (09:49)
[2018-05-05] MEDS: ASPIRIN EC 81 MG TABEC PO SCH (09:49)
[2018-05-05] MEDS: HEPARIN SODIUM - SQ 10,000 UNITS/ML VIAL SQ SCH ×2 (09:51→20:22)
[2018-05-05] MEDS: SODIUM CHLORIDE 0.9% FLUSH 10 ML FLUSH IV FLUSH SCH ×2 (09:52→20:22)
--- NOTE | 2018-05-05 12:12 | HHI.PR ---
Subjective Remarks awake and alert, no chest pain or discomfort no flank pain but states recently with terminal dysuria- "stinging at end of urination" denies history of recurrent UT no cough baseline up and ambulates with a 3 wheeled walker lab called- + gram negative rods in blood Objective Vitals Vital Signs Date Time Temp Pulse Resp B/P (MAP) Pulse Ox O2 Delivery O2 Flow Rate FiO2 05/05/18 08:00 82 05/05/18 07:00 Nasal Cannula 2.00 05/05/18 04:00 97.8 78 16 100/71 (81) 95 05/05/18 00:00 98.2 82 18 135/78 (97) 96 05/05/18 00:00 86 05/04/18 20:38 98.3 78 19 125/58 (80) 94 05/04/18 20:00 Nasal Cannula 2.00 05/04/18 19:47 88 20 144/72 (96) 98 Nasal Cannula 2.00 05/04/18 19:42 94 Nasal Cannula 2.00 05/04/18 16:40 99 135/59 (84) 141/65 (90) 05/04/18 16:01 Nasal Cannula 2.00 05/04/18 16:01 93 Nasal Cannula 2.00 05/04/18 15:08 98.5 107 22 136/61 (86) 93 I/O 05/04/18 05/04/18 05/04/18 05/05/18 05/05/18 05/05/18 07:00 15:00 23:00 07:00 15:00 23:00 Intake Total 1290 ml Output Total 600 ml Balance 690 ml Intake Oral 240 ml IV Total 1050 ml Output Urine Total 600 ml # Bowel Movements 0 Result Diagram: 05/05/18 0530 05/05/18 0530 Imaging Last Impressions Chest X-Ray 05/04/18 1602 Signed Impressions: CONCLUSION: No acute disease. Lung Scan-VQ Nuclear Medicine 05/04/18 0000 Signed Impressions: CONCLUSION: 1. Negative for pulmonary embolus. Chest CT 05/04/18 0000 Signed Impressions: CONCLUSION: 1. Trace left pleural effusion. Dependent atelectasis in both lungs. [place] opacity most characteristic of a mild edema pattern associated with some mil d air trapping. Sign Objective Remarks awake and alert, no acute distress anicteric lungs- no rales regular rhythm abdomen- flabby soft, good bowel sounds, no CVA tenderness extrmeities no edema'neuro exam- non focal A/P Problem List: (1) SIRS (systemic inflammatory response syndrome) ICD Code: R65.10 - Systemic inflammatory response syndrome (SIRS) of non- infectious origin without acute organ dysfunction Status: Acute (2) Elevated troponin ICD Code: R74.8 - Abnormal levels of other serum enzymes Status: Acute (3) BRANDT (acute kidney injury) ICD Code: N17.9 - Acute kidney failure, unspecified Assessment and Plan 62 years old Gram negative sepsis secondary to UTI - continue on IV Zosyn - ID consult for recommendation - will get an US of the kidneys- with history of CKI r/o any hydronephrosis - repeat blood cultures in 48 hours to ensure clearance NSTEMI - elevated troponin- from demand - seen by Cardiology- no chest pain] - consider lexiscan prior to DC Chronic Leukocytosis hisotry of Lymphoproliferative disorder History of NHL - ff CBC with sepsis- WBC more up than baseline with sepsis - consider Hematology consult Chronic anemia - get iron studies, B12, folate Acute on top of Chronic kidney disease - get bilateral renal US with UTI - states at one time was ff by Nephrology - Dr. Salmon as OP Increase activity- out of bed to chair Alvin Wilburn MD May 05, 2018 12:12
--- NOTE | 2018-05-05 12:54 | EKG ---
Date Performed: 05/05/2018 Time Performed: 04:48:04 PTAGE: 62 years EKG: Sinus rhythm Normal ECG PREVIOUS TRACING : 05/04/2018 22.18 Since the previous tracing, no significant change noted DOCTOR: Basil Fournier Interpretating Date/Time 05/05/2018 12:51:39
[2018-05-05 12:55] LABS: % SATURATION IRON PROFILE 17.3 % (20-50); IRON (FE) 29 MCG/DL (50-170); TOTAL IRON BINDING CAPACITY 168 MCG/DL (250-450)
--- NOTE | 2018-05-05 12:55 | EKG ---
Date Performed: 05/04/2018 Time Performed: 22:18:45 PTAGE: 62 years EKG: Sinus rhythm MINIMAL VOLTAGE CRITERIA FOR LVH, CONSIDER NORMAL VARIANT BORDERLINE ECG PREVIOUS TRACING : 05/04/2018 16.01 Since the previous tracing, no significant change noted DOCTOR: Basil Fournier Interpretating Date/Time 05/05/2018 12:51:50
--- NOTE | 2018-05-05 12:56 | EKG ---
Date Performed: 05/04/2018 Time Performed: 16:01:46 PTAGE: 62 years EKG: SINUS TACHYCARDIA MODERATE VOLTAGE CRITERIA FOR LVH, CONSIDER NORMAL VARIANT ABNORMAL RHYTH M ECG PREVIOUS TRACING :10/08/2017 @04.51 Since the previous tracing, no significant change noted DOCTOR: Basil Fournier Interpretating Date/Time 05/05/2018 12:52:18
[2018-05-05 12:58] LABS: FERRITIN 170 NG/ML (8-252)
--- NOTE | 2018-05-05 17:14 | MB ---
cc: Domingo Mclaughlin MD, Franklyn F MD DATE: 05/05/2018 REQUESTING PHYSICIAN: Dr. Wilburn REASON FOR CONSULTATION: Gram-negative sepsis. HISTORY OF PRESENT ILLNESS: This is a 62-year-old black female who presented to the emergency department with generalized weakness. She has a history of Hodgkin's disease, which is in remission. The patient notes that approximately 1 week ago she started feeling very fatigued and was not having enough energy to get up and do her usual activities. She presented to the emergency department and noted that she had chills. She also reports to me that during the few days before admission, she had hesitation on passing the urine and that she also has urinary frequency as well. Her white blood cell count was elevated at 28.4 in the emergency department. She also had elevated creatinine, which was 3.0. Urinalysis was obtained and it showed innumerable white cells and a urine culture was obtained as well and blood cultures were obtained. The blood culture has E. coli in 1 bottle of 4. The urine culture has gram-negative [place]. The identity of the urine bacteria is pending. The patient also had workup of the lung with a chest x-ray that showed no acute disease. CT scan of the lungs showed ground glass opacity, most characteristic of mild edema. CT scan was negative for pulmonary embolism. The patient tells me that she is still getting chills. She has been afebrile since admission. She was admitted yesterday evening. PAST MEDICAL HISTORY: Hodgkin's lymphoma in remission, gout, chronic anemia, chronic kidney disease, hypertension, history of splenectomy, history of cholecystectomy, history of thyroidectomy, history of bilateral knee replacements. ALLERGIES: DOXYCYCLINE, SULFAMETHOXAZOLE, TRIMETHOPRIM. MEDICATIONS: 1. Piperacillin/tazobactam 2. Synthroid. 3. Tenormin. 4. Aspirin. 5. Calcitriol. 6. Protonix. 7. Lyrica. 8. Ambien. SOCIAL HISTORY: Former smoker. No longer smokes. No alcohol use. No illicit drugs. The patient is . FAMILY HISTORY: Noncontributory to current admission. REVIEW OF SYSTEMS: Significant for generalized malaise, nausea, chills, generalized body aches, urinary urgency and hesitancy and chronic back pain. PHYSICAL EXAMINATION: GENERAL: This is an obese female who is in no acute distress. She is awake and alert, although somewhat lethargic. VITAL SIGNS: Temperature 97.8, BP 100/71, respirations 16, heart rate 78. HEENT: The head is atraumatic. Extraocular movements grossly intact. Pupils reactive to light. No icterus. Oropharynx Moist mucosa. No lesions. NECK: Supple without adenopathy. LUNGS: Clear breath sounds. HEART: Regular S1 and S2. There is a slight systolic murmur at the left sternal border. ABDOMEN: Bowel sounds present, obese, soft, nontender. RECTAL: Not performed. EXTREMITIES: No clubbing, cyanosis or edema. SKIN: No rash. NEUROLOGIC: No gross focal findings. PSYCHIATRIC: The patient is calm and cooperative. LABORATORY DATA: WBC 24.9, 51% neutrophils, 35% lymphocytes, 10% monocytes. Differential includes 12% bands. IMPRESSION: 1. Gram-negative sepsis due to Escherichia coli, urinary source. 2. Urinary tract infection due to negative bacteria. 3. Generalized malaise secondary to infection. 4. Leukocytosis secondary to infection. RECOMMENDATIONS: 1. Continue the piperacillin/tazobactam. 2. Monitor the sensitivity of the bacteria in the bloodstream. 3. Monitor urine bacteria, identification and sensitivity. 4. Monitor white blood cell count. 5. Monitor her clinical status. Thank you for this consultation. I will follow the patient's progress along with you and will make further recommendations upon followup if necessary. MD LYLA Dias/ , 04:44 PM , 05:12 PM CHRISTELLE
[2018-05-06] VITALS (9 sets, daily range): BP systolic 105–147; BP diastolic 51–74; PULSE 64–95; RESP 16–20; TEMP 97.5–98.4; O2SAT 88–96
[2018-05-06] MEDS: PIPERACIL-TAZO 2.25 GM PREMIX 50 ML IV SCH ×4 (03:33→22:03)
[2018-05-06] MEDS: SODIUM CHLOR 0.9% 1000 ML INJ 1,000 ML IV SCH ×3 (03:33→20:31)
[2018-05-06] MEDS: LEVOTHYROXINE SODIUM 25 MCG TAB PO SCH (05:45)
[2018-05-06] MEDS: LEVOTHYROXINE SODIUM 112 MCG TAB PO SCH (05:45)
[2018-05-06] MEDS: SODIUM CHLORIDE 0.9% FLUSH 10 ML FLUSH IV FLUSH SCH ×2 (09:00→20:31)
[2018-05-06] MEDS: PANTOPRAZOLE SOD 20 MG DELAYED RELEASE TAB PO SCH (09:44)
[2018-05-06] MEDS: ATENOLOL 50 MG TAB PO SCH (09:44)
[2018-05-06] MEDS: ASPIRIN EC 81 MG TABEC PO SCH (09:44)
[2018-05-06] MEDS: CALCITRIOL 0.25 MCG CAP PO SCH (09:44)
[2018-05-06] MEDS: PREGABALIN 75 MG CAP PO SCH ×2 (09:44→20:30)
[2018-05-06] MEDS: HEPARIN SODIUM - SQ 10,000 UNITS/ML VIAL SQ SCH ×2 (09:45→20:31)
[2018-05-06] MEDS: ACETAMINOPHEN/HYDROcodone 325 MG/7.5 MG TAB PO PRN ×2 (09:53→22:03)
[2018-05-06 10:29] LABS: CREATININE 2.7 MG/DL (0.50-1.00)
--- NOTE | 2018-05-06 12:12 | HHI.PR ---
Subjective Remarks awake and alert, afebri;le feeling better, no flank pain or urinary symptoms no chest pain Objective Vitals Vital Signs Date Time Temp Pulse Resp B/P (MAP) Pulse Ox O2 Delivery O2 Flow Rate FiO2 05/06/18 08:00 82 05/06/18 08:00 98.1 85 20 132/61 (84) 94 05/06/18 07:00 Nasal Cannula 2.00 05/06/18 04:00 97.5 84 17 105/51 (69) 92 05/06/18 04:00 Nasal Cannula 2.00 05/06/18 03:46 64 05/06/18 00:00 98.4 89 16 105/51 (69) 92 05/06/18 00:00 Nasal Cannula 2.00 05/05/18 23:53 80 05/05/18 20:00 98.3 94 17 142/63 (89) 95 05/05/18 20:00 Nasal Cannula 2.50 05/05/18 19:38 98 05/05/18 16:00 98.5 95 20 148/65 (92) 91 05/05/18 16:00 87 I/O 05/05/18 05/05/18 05/05/18 05/06/18 05/06/18 05/06/18 07:00 15:00 23:00 07:00 15:00 23:00 Intake Total 1290 ml 480 ml 1220 ml Output Total 600 ml Balance 690 ml 480 ml 1220 ml Intake Oral 240 ml 480 ml 120 ml IV Total 1050 ml 1100 ml Output Urine Total 600 ml # Voids 2 1 # Bowel Movements 0 0 Result Diagram: 05/05/18 0530 05/06/18 0933 Imaging Last Impressions Chest X-Ray 05/04/18 1602 Signed Impressions: CONCLUSION: No acute disease. Lung Scan-VQ Nuclear Medicine 05/04/18 0000 Signed Impressions: CONCLUSION: 1. Negative for pulmonary embolus. Chest CT 05/04/18 0000 Signed Impressions: CONCLUSION: 1. Trace left pleural effusion. Dependent atelectasis in both lungs. [place] opacity most characteristic of a mild edema pattern associated with some mil d air trapping. Sign Objective Remarks awake and alert, no acute distress anicteric lungs- no rales regular rhythm abdomen- flabby soft, good bowel sounds, no CVA tenderness extremitiies no edema neuro exam- non focal A/P Problem List: (1) SIRS (systemic inflammatory response syndrome) ICD Code: R65.10 - Systemic inflammatory response syndrome (SIRS) of non- infectious origin without acute organ dysfunction Status: Acute (2) Elevated troponin ICD Code: R74.8 - Abnormal levels of other serum enzymes Status: Acute (3) BRANDT (acute kidney injury) ICD Code: N17.9 - Acute kidney failure, unspecified Assessment and Plan 62 years old Gram negative sepsis secondary to UTI - continue on IV Zosyn - ID ff - get US of the kidneys- with history of CKI r/o any hydronephrosis- pending - repeat blood cultures in 48 hours to ensure clearance NSTEMI - elevated troponin- from demand- no complains of chest pain - seen by Cardiology- no chest pain] - consider lexiscan prior to DC Chronic Leukocytosis hisotry of Lymphoproliferative disorder History of NHL - ff CBC with sepsis- WBC more up than baseline with sepsis - consider Hematology consult Chronic anemia -rons studies suggestive of chronic disease Acute on top of Chronic kidney disease- creatinine trending down - get bilateral renal US - continue on IVF - states at one time was ff by Nephrology - Dr. Salmon as OP Increase activity- out of bed to chair Alvin Wilburn MD May 06, 2018 12:12
[2018-05-06 13:59] LABS: HEMOGLOBIN A1C 6.4 % (4.3-6.0)
--- NOTE | 2018-05-06 16:14 | HHI.IDPN ---
Note Infectious Disease Note Patient says he feels better. However she notes that she still has weakness. Says abdominal discomfort which she had previously is improved. Afebrile. Denies chills. Denies nausea. Urine culture identified as E. coli. Tolerating IV antibiotic without difficulty. PAST MEDICAL HISTORY: Hodgkin's lymphoma in remission, gout, chronic anemia, chronic kidney disease, hypertension, history of splenectomy, history of cholecystectomy, history of thyroidectomy, history of bilateral knee replacements. ALLERGIES: DOXYCYCLINE, SULFAMETHOXAZOLE, TRIMETHOPRIM. Antibiotics: Piperacillin/tazobactam. Objective: Vital Signs Date Time Temp Pulse Resp B/P (MAP) Pulse Ox O2 Delivery O2 Flow Rate FiO2 05/06/18 12:00 95 05/06/18 08:00 82 05/06/18 08:00 98.1 85 20 132/61 (84) 94 05/06/18 07:00 Nasal Cannula 2.00 05/06/18 04:00 97.5 84 17 105/51 (69) 92 05/06/18 04:00 Nasal Cannula 2.00 05/06/18 03:46 64 05/06/18 00:00 98.4 89 16 105/51 (69) 92 05/06/18 00:00 Nasal Cannula 2.00 05/05/18 23:53 80 05/05/18 20:00 98.3 94 17 142/63 (89) 95 05/05/18 20:00 Nasal Cannula 2.50 05/05/18 19:38 98 Laboratory Tests Test 05/05/18 05:30 White Blood Count 24.9 TH/MM3 Red Blood Count 2.46 MIL/MM3 Hemoglobin 8.1 GM/DL Hematocrit 24.5 % Mean Corpuscular Volume 99.4 FL Mean Corpuscular Hemoglobin 32.7 PG Mean Corpuscular Hemoglobin Concent 32.9 % Red Cell Distribution Width 15.1 % Platelet Count 191 TH/MM3 Mean Platelet Volume 12.5 FL Neutrophils (%) (Auto) 51.4 % Lymphocytes (%) (Auto) 35.1 % Monocytes (%) (Auto) 10.8 % Eosinophils (%) (Auto) 0.4 % Basophils (%) (Auto) 2.3 % Neutrophils # (Auto) 12.8 TH/MM3 Lymphocytes # (Auto) 8.7 TH/MM3 Monocytes # (Auto) 2.7 TH/MM3 Eosinophils # (Auto) 0.1 TH/MM3 Basophils # (Auto) 0.6 TH/MM3 CBC Comment AUTO DIFF Differential Total Cells Counted 100 Neutrophils % (Manual) 60 % Band Neutrophils % 12 % Lymphocytes % 21 % Monocytes % 6 % Basophils % 1 % Neutrophils # (Manual) 17.9 TH/MM3 Differential Comment FINAL DIFF MANUAL Toxic Vacuolation PRESENT Platelet Estimate NORMAL Platelet Morphology Comment ENLARGED Target Cells 1+ Laboratory Tests Test 05/04/18 18:35 05/04/18 21:08 05/05/18 00:11 05/05/18 05:30 Lactic Acid Level 2.9 mmol/L 0.9 mmol/L Total Creatine Kinase 315 U/L 278 U/L Creatine Kinase MB 1.1 NG/ML 0.9 NG/ML Creatine Kinase MB % 0.3 % 0.3 % Troponin I 0.08 NG/ML 0.08 NG/ML Blood Urea Nitrogen 40 MG/DL Creatinine 3.03 MG/DL Random Glucose 101 MG/DL Total Protein 7.1 GM/DL Albumin 1.8 GM/DL Calcium Level 7.8 MG/DL Alkaline Phosphatase 105 U/L Aspartate Amino Transf (AST/SGOT) 21 U/L Alanine Aminotransferase (ALT/SGPT) 16 U/L Total Bilirubin 0.8 MG/DL Sodium Level 140 MEQ/L Potassium Level 4.0 MEQ/L Chloride Level 103 MEQ/L Carbon Dioxide Level 27.9 MEQ/L Anion Gap 9 MEQ/L Estimat Glomerular Filtration Rate 19 ML/MIN Hemoglobin A1c 6.4 % Iron Level 29 MCG/DL Total Iron Binding Capacity 168 MCG/DL Percent Iron Saturation 17.3 % Ferritin 170 NG/ML Triglycerides Level 109 MG/DL Cholesterol Level 109 MG/DL LDL Cholesterol 58 MG/DL HDL Cholesterol 29.4 MG/DL Cholesterol/HDL Ratio 3.70 RATIO Test 05/06/18 09:33 Creatinine 2.70 MG/DL Estimat Glomerular Filtration Rate 22 ML/MIN Microbiology Date/Time Source Procedure Growth Status 05/04/18 18:35 Blood Peripheral Aerobic Blood Culture - Preliminary NO GROWTH IN 2 DAYS Resulted 05/04/18 18:35 Blood Peripheral Anaerobic Blood Culture - Preliminary NO GROWTH IN 2 DAYS Resulted 05/04/18 18:30 Blood Peripheral Aerobic Blood Culture - Preliminary NO GROWTH IN 2 DAYS Resulted 05/04/18 18:30 Anaerobic Blood Culture - Preliminary Escherichia Coli Resulted 05/04/18 18:35 Urine Clean Catch Urine Culture - Final Escherichia Coli Complete Imaging: Chest X-Ray 05/04/18 1602 Signed Impressions: CONCLUSION: No acute disease. Lung Scan-VQ Nuclear Medicine 05/04/18 0000 Signed Impressions: CONCLUSION: 1. Negative for pulmonary embolus. Chest CT 05/04/18 0000 Signed Impressions: CONCLUSION: 1. Trace left pleural effusion. Dependent atelectasis in both lungs. Groundgla ss opacity most characteristic of a mild edema pattern associated with some mil d air trapping. Sign PHYSICAL EXAMINATION: GENERAL: Patient is awake and alert. HEENT: Extraocular movements grossly intact. Pupils reactive to light. No icterus. Oropharynx Moist mucosa. No lesions. NECK: Supple without adenopathy. LUNGS: Clear breath sounds. HEART: Regular S1 and S2. Slight systolic murmur at the left sternal border. ABDOMEN: Bowel sounds present, obese, soft, nontender. EXTREMITIES: No clubbing, cyanosis or edema. SKIN: No rash. NEUROLOGIC: No gross focal findings. PSYCHIATRIC: Calm and cooperative. IMPRESSION: 1. Gram-negative sepsis due to Escherichia coli, urinary source. 2. Urinary tract infection due E. coli. 3. Generalized malaise secondary to infection. 4. Leukocytosis secondary to infection. White blood cell count remains elevated. RECOMMENDATIONS: 1. Continue the piperacillin/tazobactam. 2. Monitor white blood cell count. 3. Monitor the clinical status. Domingo Mclaughlin MD May 06, 2018 16:14
[2018-05-06] MEDS: ZOLPIDEM TARTRATE 10 MG TAB PO PRN (20:30)
--- NOTE | 2018-05-06 21:34 | RADRPT ---
EXAM DATE: 05/06/2018 9:23 PM EDT AGE/SEX: 62 years / Female INDICATIONS: Elevated labs. CLINICAL DATA: This is the patient's initial encounter. Patient reports that signs and symptoms have been present for 1 day and indicates a pain score of 0/10. MEDICAL/SURGICAL HISTORY: Hypertension. Osteoporosis. Arthritis. Renal failure. Hodgkin dise ase. Cholecystectomy. Thyroidectomy. Splenectomy. Bilateral knee replacements. COMPARISON: No prior exams available for comparison. MEASUREMENTS: Right Kidney:__9.3 x 4.5 x 3.4 cm cm Left Kidney:__11.1 x 4.4 x 5.4 cm cm FINDINGS: Kidneys are slightly atrophic and echogenic characteristics of medical renal disease. Small right michael al cyst measuring up to 1.8 cm in diameter. Nonobstructing 5 mm calcification left mid pole kidney. P rior splenectomy. Bladder partially distended. CONCLUSION: 1. Echogenic kidneys characteristic of medical renal disease. Small right renal cyst and nonobstruct ing left renal calcification. Electronically signed by: Jt Davis MD 05/06/2018 9:33 PM EDT
[2018-05-07] VITALS (7 sets, daily range): BP systolic 143–160; BP diastolic 63–70; PULSE 83–95; RESP 16–20; TEMP 98.1–99.6; O2SAT 92–97
[2018-05-07] MEDS: PIPERACIL-TAZO 2.25 GM PREMIX 50 ML IV SCH ×4 (04:26→22:26)
[2018-05-07] MEDS: SODIUM CHLOR 0.9% 1000 ML INJ 1,000 ML IV SCH (04:26)
[2018-05-07] MEDS: LEVOTHYROXINE SODIUM 25 MCG TAB PO SCH (04:26)
[2018-05-07] MEDS: LEVOTHYROXINE SODIUM 112 MCG TAB PO SCH (04:26)
[2018-05-07 08:09] LABS: AUTOMATED NEUTROPHIL # 9.5 TH/MM3 (1.8-7.7); BASOPHIL # 0.4 TH/MM3 (0-0.2); BASOPHIL % 2.5 % (0.0-2.0); EOSINOPHIL # 0.1 TH/MM3 (0-0.4); EOSINOPHIL % 0.7 % (0.0-4.0); HEMATOCRIT 24.3 % (35.0-46.0); HEMOGLOBIN 7.8 GM/DL (11.6-15.3); LYMPH % 35.5 % (9.0-44.0); LYMPHOCYTE # 6.1 TH/MM3 (1.0-4.8); MEAN CELL VOLUME 99.5 FL (80.0-100.0); MEAN CORPUSCULAR HGB CONC 32.1 % (32.0-36.0); MEAN PLATELET VOLUME 12.2 FL (7.0-11.0); MONO % 5.7 % (0.0-8.0); NEUT % 55.6 % (16.0-70.0); PLATELET COUNT 215 TH/MM3 (150-450); RED BLOOD COUNT 2.44 MIL/MM3 (4.00-5.30); RED CELL DISTRIBUTION WIDTH 14.8 % (11.6-17.2); WHITE BLOOD COUNT 17.1 TH/MM3 (4.0-11.0)
[2018-05-07 08:29] LABS: BICARBONATE 28.2 MEQ/L (21.0-32.0); CALCIUM 8.1 MG/DL (8.5-10.1); CREATININE 2.49 MG/DL (0.50-1.00)
[2018-05-07] MEDS: ASPIRIN EC 81 MG TABEC PO SCH ×2 (09:00→12:21)
[2018-05-07] MEDS: SODIUM CHLORIDE 0.9% FLUSH 10 ML FLUSH IV FLUSH SCH ×2 (09:00→22:26)
[2018-05-07 09:22] LABS: BANDS 23 % (0-6); CORRECTED NUCLEATED RBC 1 /100 WBC (0-0); LYMPHOCYTES 11 % (9-44); MONOCYTES 11 % (0-8); NEUTROPHIL # MANUAL DIFF 12.8 TH/MM3 (1.8-7.7); NUCLEATED RED BLOOD CELL 1 (0-0); POLYS (SEG NEUTROPHILS) 52 % (16-70)
[2018-05-07 09:23] LABS: HOWELL-JOLLY BODIES PRESENT (NONE SEEN); TARGET CELLS 1+ (NORMAL)
--- NOTE | 2018-05-07 10:48 | HHI.PR ---
Subjective Remarks afebrile, feeling better , good po no nausea or vomiting, voidins pontaneously Objective Vitals Vital Signs Date Time Temp Pulse Resp B/P (MAP) Pulse Ox O2 Delivery O2 Flow Rate FiO2 05/07/18 08:00 98.1 91 20 143/63 (89) 95 05/07/18 04:00 98.1 85 16 154/70 (98) 92 05/07/18 03:46 83 05/07/18 00:05 Nasal Cannula 2.00 05/07/18 00:00 Nasal Cannula 1.00 05/06/18 23:45 84 05/06/18 20:00 Nasal Cannula 2.00 05/06/18 20:00 97.7 84 18 145/74 (97) 95 05/06/18 19:47 88 05/06/18 16:00 98.2 83 20 147/67 (93) 96 05/06/18 16:00 80 05/06/18 12:00 95 05/06/18 12:00 98.0 82 20 139/65 (89) 88 I/O 05/06/18 05/06/18 05/06/18 05/07/18 05/07/18 05/07/18 07:00 15:00 23:00 07:00 15:00 23:00 Intake Total 1220 ml 1580 ml 1170 ml Balance 1220 ml 1580 ml 1170 ml Intake Oral 120 ml 480 ml 120 ml IV Total 1100 ml 1100 ml 1050 ml # Voids 1 2 2 # Bowel Movements 1 Result Diagram: 05/07/18 0737 05/07/18 0737 Imaging Last Impressions Renal Ultrasound 05/06/18 0000 Signed Impressions: CONCLUSION: 1. Echogenic kidneys characteristic of medical renal disease. Small right gonzales l cyst and nonobstructing left renal calcification. Chest X-Ray 05/04/18 1602 Signed Impressions: CONCLUSION: No acute disease. Lung Scan-VQ Nuclear Medicine 05/04/18 0000 Signed Impressions: CONCLUSION: 1. Negative for pulmonary embolus. Chest CT 05/04/18 0000 Signed Impressions: CONCLUSION: 1. Trace left pleural effusion. Dependent atelectasis in both lungs. Groundgla ss opacity most characteristic of a mild edema pattern associated with some mil d air trapping. Sign Objective Remarks awake and alert, no acute distress anicteric lungs- no rales regular rhythm abdomen- flabby soft, good bowel sounds, no CVA tenderness extremities no edema neuro exam- non focal A/P Problem List: (1) SIRS (systemic inflammatory response syndrome) ICD Code: R65.10 - Systemic inflammatory response syndrome (SIRS) of non- infectious origin without acute organ dysfunction Status: Acute (2) Elevated troponin ICD Code: R74.8 - Abnormal levels of other serum enzymes Status: Acute (3) BRANDT (acute kidney injury) ICD Code: N17.9 - Acute kidney failure, unspecified Assessment and Plan 62 years old E coli sepsis secondary to UTI - continue on IV Zosyn - ID ff - get US of the kidneys- no hydronephrosis, finding suggestive of chronic medical disease - repeat blood cultures in 48 hours to ensure clearance NSTEMI - elevated troponin- from demand- no complains of chest pain - seen by Cardiology- no chest pain] - consider lexiscan prior to DC Chronic Leukocytosis history of Lymphoproliferative disorder History of NHL - ff CBC with sepsis- WBC trending down - consider Hematology consult if no improvement Chronic anemia -Irons studies suggestive of chronic disease Acute on top of Chronic kidney disease- creatinine trending down - get bilateral renal US- chronic medical disease- no hydronephrosis - continue IVF- decrease rate 60 cc/hr - states at one time was ff by Nephrology - Dr. Salmon as OP Increase activity- out of bed to chair PT daily Alvin Wilburn MD May 07, 2018 10:48
[2018-05-07] MEDS: ACETAMINOPHEN/HYDROcodone 325 MG/7.5 MG TAB PO PRN (12:20)
[2018-05-07] MEDS: PREGABALIN 75 MG CAP PO SCH ×2 (12:21→22:26)
[2018-05-07] MEDS: PANTOPRAZOLE SOD 20 MG DELAYED RELEASE TAB PO SCH (12:21)
[2018-05-07] MEDS: ATENOLOL 50 MG TAB PO SCH (12:21)
[2018-05-07] MEDS: CALCITRIOL 0.25 MCG CAP PO SCH (12:21)
[2018-05-07] MEDS: HEPARIN SODIUM - SQ 10,000 UNITS/ML VIAL SQ SCH ×2 (12:22→22:26)
[2018-05-08] VITALS (13 sets, daily range): BP systolic 119–175; BP diastolic 54–78; PULSE 81–100; RESP 17–22; TEMP 98.4–99.8; O2SAT 91–97
[2018-05-08] MEDS: ACETAMINOPHEN/HYDROcodone 325 MG/7.5 MG TAB PO PRN ×2 (00:15→12:15)
[2018-05-08] MEDS: ZOLPIDEM TARTRATE 10 MG TAB PO PRN (00:15)
[2018-05-08] MEDS: SODIUM CHLOR 0.9% 1000 ML INJ 1,000 ML IV SCH ×2 (00:22→12:16)
[2018-05-08] MEDS: hydrALAZINE HCL 25 MG TAB PO PRN (00:22)
[2018-05-08 05:08] LABS: BICARBONATE 26.3 MEQ/L (21.0-32.0); CALCIUM 8.1 MG/DL (8.5-10.1); CREATININE 2.12 MG/DL (0.50-1.00)
[2018-05-08] MEDS: LEVOTHYROXINE SODIUM 112 MCG TAB PO SCH (05:29)
[2018-05-08] MEDS: LEVOTHYROXINE SODIUM 25 MCG TAB PO SCH (05:30)
[2018-05-08] MEDS: PIPERACIL-TAZO 2.25 GM PREMIX 50 ML IV SCH ×4 (05:30→21:36)
[2018-05-08 05:33] LABS: AUTOMATED NEUTROPHIL # 11.9 TH/MM3 (1.8-7.7); BASOPHIL # 0.4 TH/MM3 (0-0.2); BASOPHIL % 1.8 % (0.0-2.0); EOSINOPHIL # 0.1 TH/MM3 (0-0.4); EOSINOPHIL % 0.6 % (0.0-4.0); HEMATOCRIT 24.5 % (35.0-46.0); HEMOGLOBIN 7.9 GM/DL (11.6-15.3); LYMPH % 31.6 % (9.0-44.0); LYMPHOCYTE # 6.3 TH/MM3 (1.0-4.8); MEAN CORPUSCULAR HEMOGLOBIN 31.7 PG (27.0-34.0); MEAN CORPUSCULAR HGB CONC 32.3 % (32.0-36.0); MEAN PLATELET VOLUME 12.1 FL (7.0-11.0); MONO % 5.8 % (0.0-8.0); MONOCYTE # 1.1 TH/MM3 (0-0.9); NEUT % 60.2 % (16.0-70.0); PLATELET COUNT 239 TH/MM3 (150-450); RED CELL DISTRIBUTION WIDTH 14.3 % (11.6-17.2); WHITE BLOOD COUNT 19.8 TH/MM3 (4.0-11.0)
[2018-05-08 07:46] LABS: BANDS 6 % (0-6); BASOPHILS 2 % (0-2); LYMPHOCYTES 24 % (9-44); MONOCYTES 10 % (0-8); NEUTROPHIL # MANUAL DIFF 12.7 TH/MM3 (1.8-7.7); POLYS (SEG NEUTROPHILS) 58 % (16-70)
[2018-05-08 07:48] LABS: HOWELL-JOLLY BODIES PRESENT (NONE SEEN); TARGET CELLS 1+ (NORMAL); TOXIC VACUOLATION PRESENT (NONE SEEN)
[2018-05-08] MEDS: ASPIRIN EC 81 MG TABEC PO SCH (08:32)
[2018-05-08] MEDS: CALCITRIOL 0.25 MCG CAP PO SCH (08:32)
[2018-05-08] MEDS: PANTOPRAZOLE SOD 20 MG DELAYED RELEASE TAB PO SCH (08:32)
[2018-05-08] MEDS: ATENOLOL 50 MG TAB PO SCH (08:32)
[2018-05-08] MEDS: PREGABALIN 75 MG CAP PO SCH ×2 (08:32→21:32)
[2018-05-08] MEDS: SODIUM CHLORIDE 0.9% FLUSH 10 ML FLUSH IV FLUSH SCH ×2 (08:34→21:31)
[2018-05-08] MEDS: HEPARIN SODIUM - SQ 10,000 UNITS/ML VIAL SQ SCH ×2 (08:35→21:34)
--- NOTE | 2018-05-08 13:26 | HHI.IDPN ---
Note Infectious Disease Note Patient states she feels tired. Appears sleepy. She reports pain in her feet. She notes having some chills this morning. Afebrile. Repeat blood cultures have no growth 1 day. Denies diarrhea, reports that his stools are loose. Denies abdominal pain. PAST MEDICAL HISTORY: Hodgkin's lymphoma in remission, gout, chronic anemia, chronic kidney disease, hypertension, history of splenectomy, history of cholecystectomy, history of thyroidectomy, history of bilateral knee replacements. ALLERGIES: DOXYCYCLINE, SULFAMETHOXAZOLE, TRIMETHOPRIM. Antibiotics: Piperacillin/tazobactam. Objective: Vital Signs Date Time Temp Pulse Resp B/P (MAP) Pulse Ox O2 Delivery O2 Flow Rate FiO2 05/08/18 12:40 98.6 84 21 146/65 (92) 94 05/08/18 10:55 Room Air 2.00 05/08/18 08:20 98.7 86 22 139/61 (87) 96 05/08/18 05:13 98.5 90 20 119/54 (75) 92 05/08/18 04:00 91 05/08/18 00:15 99.8 97 20 152/69 (96) 96 05/08/18 00:13 99.5 98 20 175/74 (107) 91 05/08/18 00:00 Room Air 05/08/18 00:00 99 05/07/18 20:00 Room Air 05/07/18 20:00 95 05/07/18 16:00 84 05/07/18 16:00 98.2 83 20 160/69 (99) 97 Laboratory Tests Test 05/07/18 07:37 05/08/18 04:30 White Blood Count 17.1 TH/MM3 19.8 TH/MM3 Red Blood Count 2.44 MIL/MM3 2.50 MIL/MM3 Hemoglobin 7.8 GM/DL 7.9 GM/DL Hematocrit 24.3 % 24.5 % Mean Corpuscular Volume 99.5 FL 98.0 FL Mean Corpuscular Hemoglobin 32.0 PG 31.7 PG Mean Corpuscular Hemoglobin Concent 32.1 % 32.3 % Red Cell Distribution Width 14.8 % 14.3 % Platelet Count 215 TH/MM3 239 TH/MM3 Mean Platelet Volume 12.2 FL 12.1 FL Neutrophils (%) (Auto) 55.6 % 60.2 % Lymphocytes (%) (Auto) 35.5 % 31.6 % Monocytes (%) (Auto) 5.7 % 5.8 % Eosinophils (%) (Auto) 0.7 % 0.6 % Basophils (%) (Auto) 2.5 % 1.8 % Neutrophils # (Auto) 9.5 TH/MM3 11.9 TH/MM3 Lymphocytes # (Auto) 6.1 TH/MM3 6.3 TH/MM3 Monocytes # (Auto) 1.0 TH/MM3 1.1 TH/MM3 Eosinophils # (Auto) 0.1 TH/MM3 0.1 TH/MM3 Basophils # (Auto) 0.4 TH/MM3 0.4 TH/MM3 CBC Comment AUTO DIFF AUTO DIFF Differential Total Cells Counted 100 100 Neutrophils % (Manual) 52 % 58 % Band Neutrophils % 23 % 6 % Lymphocytes % 11 % 24 % Monocytes % 11 % 10 % Eosinophils % 3 % Neutrophils # (Manual) 12.8 TH/MM3 12.7 TH/MM3 Nucleated Red Blood Cells 1 /100 WBC Differential Comment FINAL DIFF MANUAL FINAL DIFF MANUAL Platelet Estimate NORMAL NORMAL Platelet Morphology Comment NORMAL ENLARGED Target Cells 1+ 1+ Red-[place] Bodies PRESENT PRESENT Basophils % 2 % Toxic Vacuolation PRESENT Laboratory Tests Test 05/07/18 07:37 05/08/18 04:30 Blood Urea Nitrogen 27 MG/DL 22 MG/DL Creatinine 2.49 MG/DL 2.12 MG/DL Random Glucose 77 MG/DL 85 MG/DL Calcium Level 8.1 MG/DL 8.1 MG/DL Sodium Level 141 MEQ/L 142 MEQ/L Potassium Level 4.8 MEQ/L 4.6 MEQ/L Chloride Level 107 MEQ/L 107 MEQ/L Carbon Dioxide Level 28.2 MEQ/L 26.3 MEQ/L Anion Gap 6 MEQ/L 9 MEQ/L Estimat Glomerular Filtration Rate 24 ML/MIN 28 ML/MIN Microbiology Date/Time Source Procedure Growth Status 05/07/18 07:46 Blood Peripheral Aerobic Blood Culture - Preliminary NO GROWTH IN 1 DAY Resulted 05/07/18 07:46 Blood Peripheral Anaerobic Blood Culture - Preliminary NO GROWTH IN 1 DAY Resulted 05/07/18 07:37 Blood Peripheral Aerobic Blood Culture - Preliminary NO GROWTH IN 1 DAY Resulted 05/07/18 07:37 Blood Peripheral Anaerobic Blood Culture - Preliminary NO GROWTH IN 1 DAY Resulted Microbiology Date/Time Source Procedure Growth Status 05/04/18 18:35 Blood Peripheral Aerobic Blood Culture - Preliminary NO GROWTH IN 2 DAYS Resulted 05/04/18 18:35 Blood Peripheral Anaerobic Blood Culture - Preliminary NO GROWTH IN 2 DAYS Resulted 05/04/18 18:30 Blood Peripheral Aerobic Blood Culture - Preliminary NO GROWTH IN 2 DAYS Resulted 05/04/18 18:30 Anaerobic Blood Culture - Preliminary Escherichia Coli Resulted 05/04/18 18:35 Urine Clean Catch Urine Culture - Final Escherichia Coli Complete Imaging: Renal Ultrasound 05/06/18 0000 Signed Impressions: CONCLUSION: 1. Echogenic kidneys characteristic of medical renal disease. Small right gonzales l cyst and nonobstructing left renal calcification. Chest X-Ray 05/04/18 1602 Signed Impressions: CONCLUSION: No acute disease. Lung Scan-VQ Nuclear Medicine 05/04/18 0000 Signed Impressions: CONCLUSION: 1. Negative for pulmonary embolus. Chest CT 05/04/18 0000 Signed Impressions: CONCLUSION: 1. Trace left pleural effusion. Dependent atelectasis in both lungs. Groundgla ss opacity most characteristic of a mild edema pattern associated with some mil d air trapping. Sign PHYSICAL EXAMINATION: GENERAL: Patient is lethargic. HEENT: Extraocular movements grossly intact. Pupils reactive to light. No icterus. Oropharynx Moist mucosa. No lesions. NECK: Supple without adenopathy. LUNGS: Breath sounds are clear. HEART: Regular S1 and S2. Slight systolic murmur at the left sternal border. ABDOMEN: Bowel sounds present, obese, soft, nontender. EXTREMITIES: No clubbing, cyanosis or edema. SKIN: No rash. NEUROLOGIC: No gross focal findings. PSYCHIATRIC: Calm and cooperative. IMPRESSION: 1. Gram-negative sepsis due to Escherichia coli, urinary source. 2. Urinary tract infection due E. coli. 3. Generalized malaise secondary to infection versus other cause. She has chronic renal disease. 4. Leukocytosis may be secondary to infection. However white blood cell count remains elevated despite antibiotics. 5. Pain in the feet. She reports history of gout. RECOMMENDATIONS: 1. Continue the piperacillin/tazobactam. 2. Monitor repeat blood culture. 3. Monitor white blood cell count. 4. Monitor the clinical status. Domingo Mclaughlin MD May 08, 2018 13:26
--- NOTE | 2018-05-08 16:18 | HHI.PR ---
Subjective Remarks This is a 62-year-old female with a PMH of HTN, Hodgkin's Disease in Remission, Gout, Chronic Anemia and CKD who presented to the ER w/ c/o generalized weakness , SOB and CP x3 days. States she had a gout flare and started Medrol Dosepak last Monday (6 days ago), few days after states she started feeling weak/ tired and short of breath so she stopped the steroids. Denies fever, chills or cough. No sick contacts. On arrival, BP 136/61, HR 107, O2 sat 93% on 2L NC, Afebrile. WBC 28.4. Hemoglobin 9.5, previously 8.2 on 10/12/2017. Bands 17%. Creatinine 3.03, previously 2.18 on 10/12/2017. INR 1.2. Trop 0.09. UA pending. CXR with no acute findings. S/p Vanc/Zosyn in ER. 6-16 awake and alert, no chest pain or discomfort no flank pain but states recently with terminal dysuria- "stinging at end of urination" denies history of recurrent UT no cough baseline up and ambulates with a 3 wheeled walker lab called- + gram negative rods in blood 6-17 awake and alert, afebrile feeling better, no flank pain or urinary symptoms no chest pain 6-18 afebrile, feeling better , good po no nausea or vomiting, voiding spontaneously 6-19 feeling a little better today will need lexiscan prior to dc WILL ORDER IT am labs dw RN AND PT AND CM Objective Vitals Vital Signs Date Time Temp Pulse Resp B/P (MAP) Pulse Ox O2 Delivery O2 Flow Rate FiO2 05/08/18 12:40 98.6 84 21 146/65 (92) 94 05/08/18 10:55 Room Air 2.00 05/08/18 08:20 98.7 86 22 139/61 (87) 96 05/08/18 05:13 98.5 90 20 119/54 (75) 92 05/08/18 04:00 91 05/08/18 00:15 99.8 97 20 152/69 (96) 96 05/08/18 00:13 99.5 98 20 175/74 (107) 91 05/08/18 00:00 Room Air 05/08/18 00:00 99 05/07/18 20:00 Room Air 05/07/18 20:00 95 I/O 05/07/18 05/07/18 05/07/18 05/08/18 05/08/18 05/08/18 07:00 15:00 23:00 07:00 15:00 23:00 Intake Total 1170 ml 50 ml 1600 ml Output Total 600 ml 400 ml Balance 1170 ml -550 ml 1200 ml Intake Oral 120 ml 600 ml IV Total 1050 ml 50 ml 1000 ml Output Urine Total 600 ml 400 ml # Voids 2 4 3 # Bowel Movements 2 0 0 Result Diagram: 05/08/18 0430 05/08/18 0430 Other Results Laboratory Tests Test 05/06/18 09:33 05/07/18 07:37 05/08/18 04:30 Creatinine 2.70 MG/DL 2.49 MG/DL 2.12 MG/DL Estimat Glomerular Filtration Rate 22 ML/MIN 24 ML/MIN 28 ML/MIN Random Vancomycin Level 14.5 COMMENT White Blood Count 17.1 TH/MM3 19.8 TH/MM3 Red Blood Count 2.44 MIL/MM3 2.50 MIL/MM3 Hemoglobin 7.8 GM/DL 7.9 GM/DL Hematocrit 24.3 % 24.5 % Mean Corpuscular Volume 99.5 FL 98.0 FL Mean Corpuscular Hemoglobin 32.0 PG 31.7 PG Mean Corpuscular Hemoglobin Concent 32.1 % 32.3 % Red Cell Distribution Width 14.8 % 14.3 % Platelet Count 215 TH/MM3 239 TH/MM3 Mean Platelet Volume 12.2 FL 12.1 FL Neutrophils (%) (Auto) 55.6 % 60.2 % Lymphocytes (%) (Auto) 35.5 % 31.6 % Monocytes (%) (Auto) 5.7 % 5.8 % Eosinophils (%) (Auto) 0.7 % 0.6 % Basophils (%) (Auto) 2.5 % 1.8 % Neutrophils # (Auto) 9.5 TH/MM3 11.9 TH/MM3 Lymphocytes # (Auto) 6.1 TH/MM3 6.3 TH/MM3 Monocytes # (Auto) 1.0 TH/MM3 1.1 TH/MM3 Eosinophils # (Auto) 0.1 TH/MM3 0.1 TH/MM3 Basophils # (Auto) 0.4 TH/MM3 0.4 TH/MM3 CBC Comment AUTO DIFF AUTO DIFF Differential Total Cells Counted 100 100 Neutrophils % (Manual) 52 % 58 % Band Neutrophils % 23 % 6 % Lymphocytes % 11 % 24 % Monocytes % 11 % 10 % Eosinophils % 3 % Neutrophils # (Manual) 12.8 TH/MM3 12.7 TH/MM3 Nucleated Red Blood Cells 1 /100 WBC Differential Comment FINAL DIFF MANUAL FINAL DIFF MANUAL Platelet Estimate NORMAL NORMAL Platelet Morphology Comment NORMAL ENLARGED Target Cells 1+ 1+ Red-[place] Bodies PRESENT PRESENT Blood Urea Nitrogen 27 MG/DL 22 MG/DL Random Glucose 77 MG/DL 85 MG/DL Calcium Level 8.1 MG/DL 8.1 MG/DL Sodium Level 141 MEQ/L 142 MEQ/L Potassium Level 4.8 MEQ/L 4.6 MEQ/L Chloride Level 107 MEQ/L 107 MEQ/L Carbon Dioxide Level 28.2 MEQ/L 26.3 MEQ/L Anion Gap 6 MEQ/L 9 MEQ/L Basophils % 2 % Toxic Vacuolation PRESENT Imaging Last Impressions Renal Ultrasound 05/06/18 0000 Signed Impressions: CONCLUSION: 1. Echogenic kidneys characteristic of medical renal disease. Small right gonzales l cyst and nonobstructing left renal calcification. Chest X-Ray 05/04/18 1602 Signed Impressions: CONCLUSION: No acute disease. Lung Scan-V Nuclear Medicine 05/04/18 0000 Signed Impressions: CONCLUSION: 1. Negative for pulmonary embolus. Chest CT 05/04/18 0000 Signed Impressions: CONCLUSION: 1. Trace left pleural effusion. Dependent atelectasis in both lungs. Groundgla ss opacity most characteristic of a mild edema pattern associated with some mil d air trapping. Sign Objective Remarks GENERAL: Awake alert and oriented 3 talkative cooperative S1-S2 no S3 or S4 SKIN: Warm and dry. HEAD: Atraumatic. Normocephalic. EYES: Pupils equal and round. No scleral icterus. No injection or drainage. ENT: No nasal bleeding or discharge. Mucous membranes pink and moist. NECK: Trachea midline. No JVD. CARDIOVASCULAR: Regular rate and rhythm. RESPIRATORY: No accessory muscle use. Clear to auscultation. Breath sounds equal bilaterally. GASTROINTESTINAL: Abdomen soft, non-tender, nondistended. Hepatic and splenic margins not palpable. MUSCULOSKELETAL: Extremities without clubbing, cyanosis, or edema. No obvious deformities. NEUROLOGICAL: Awake and alert. No obvious cranial nerve deficits. Motor grossly within normal limits. 4 out of 5 muscle strength in the arms and legs. Normal speech. PSYCHIATRIC: Appropriate mood and affect; insight and judgment normal. Medications and IVs Current Medications Aspirin (Aspirin Chew) 243 mg ONCE ONCE PO Last administered on 05/04/18at 16: 39; Start 05/04/18 at 16:15; Stop 05/04/18 at 16:16; Status DC Sodium Chloride (NS Flush) 2 ml UNSCH PRN IVF FLUSH AFTER USING IV ACCESS Last administered on 05/04/18at 16:39; Start 05/04/18 at 16:15; Stop 05/04/18 at 19:35 ; Status DC Vancomycin HCl 1000 mg/Sodium Chloride 250 ml @ 250 mls/hr ONCE ONCE IV Last administered on 05/04/18at 18:44; Start 05/04/18 at 18:30; Stop 05/04/18 at 19:29 ; Status DC Piperacillin Sod/ Tazobactam Sod 50 ml @ 100 mls/hr ONCE ONCE IV Last administered on 05/04/18at 19:41; Start 05/04/18 at 18:30; Stop 05/04/18 at 19:03 ; Status DC Sodium Chloride (NS Flush) 2 ml UNSCH PRN IV FLUSH FLUSH AFTER USING IV ACCESS ; Start 05/04/18 at 18:45 Sodium Chloride (NS Flush) 2 ml BID IV FLUSH Last administered on 05/08/18at 08: 34; Start 05/04/18 at 21:00 Acetaminophen (Tylenol) 650 mg Q4H PRN PO TEMP > 100.4; Start 05/04/18 at 18:45 Metoclopramide HCl (Reglan Inj) 5 mg Q6H PRN IV PUSH NAUSEA OR VOMITING; Start 05/04/18 at 18:45 Acetaminophen (Tylenol) 650 mg Q6H PRN PO PAIN SCALE 1 TO 2; Start 05/04/18 at 18:45; Stop 05/05/18 at 01:20; Status DC Naloxone HCl (Narcan Inj) 0.4 mg UNSCH PRN IV PUSH SEE LABEL COMMENTS; Start at 18:45 Magnesium Hydroxide (Milk Of Magnesia Liq) 30 ml Q12H PRN PO Mild constipation ; Start 05/04/18 at 18:45 Piperacillin Sod/ Tazobactam Sod 50 ml @ 100 mls/hr Q8H IV ; Start 05/05/18 at 03:00; Stop 05/05/18 at 03:00; Status DC Albuterol/ Ipratropium (Duoneb Neb) 1 ampule Q2HR NEB PRN NEB SOB/WHEEZING; Start 05/04/18 at 18:45 Hydralazine HCl (Apresoline) 25 mg Q8H PRN PO SBP>160, DBP>90 Last administered on 05/08/18at 00:22; Start 05/04/18 at 18:45 Lorazepam (Ativan Inj) 1 mg ONCE ONCE IV PUSH Last administered on 05/04/18at 18:56; Start 05/04/18 at 19:00; Stop 05/04/18 at 19:03; Status DC Piperacillin Sod/ Tazobactam Sod 50 ml @ 100 mls/hr Q6H IV Last administered on 05/05/18at 15:29; Start 05/05/18 at 01:00; Stop 05/05/18 at 16:48; Status DC Aspirin (Ecotrin Ec) 81 mg DAILY PO Last administered on 05/08/18at 08:32; Start 05/05/18 at 09:00 Albuterol/ Ipratropium (Duoneb Neb) 1 ampule Q4HR NEB PRN NEB SOB/WHEEZING; Start 05/04/18 at 19:00 Pharmacy Profile Note 0 ml @ 0 mls/hr UNSCH OTHER ; Start 05/04/18 at 19:00; Stop 05/06/18 at 13:43; Status DC Atenolol (Tenormin) 50 mg DAILY PO Last administered on 05/08/18at 08:32; Start 05/05/18 at 09:00 Calcitriol (Rocaltrol) 0.25 mcg DAILY PO Last administered on 05/08/18at 08:32; Start 05/05/18 at 09:00 Pregabalin (Lyrica) 75 mg BID PO Last administered on 05/08/18at 08:32; Start at 21:00 Zolpidem Tartrate (Ambien) 10 mg HS PRN PO INSOMNIA Last administered on at 00:15; Start 05/04/18 at 19:00 Levothyroxine Sodium (Synthroid) 25 mcg DAILY@0600 PO Last administered on 05/08at 05:30; Start 05/05/18 at 06:00 Pantoprazole Sodium (Protonix) 20 mg DAILY PO Last administered on 05/08/18at 08 :32; Start 05/05/18 at 09:00 Levothyroxine Sodium (Synthroid) 112 mcg DAILY@0600 PO Last administered on at 05:29; Start 05/05/18 at 06:00 Vancomycin HCl 1000 mg/Sodium Chloride 250 ml @ 250 mls/hr ONCE ONCE IV Last administered on 05/04/18at 20:19; Start 05/04/18 at 20:00; Stop 05/04/18 at 20:59 ; Status DC Sodium Chloride 1,000 ml @ 60 mls/hr [id number] IV Last administered on at 12:16; Start 05/04/18 at 19:15 Heparin Sodium (Porcine) (Heparin Inj) 5,000 units Q12HR SQ Last administered on 05/08/18at 08:35; Start 05/04/18 at 21:00 Acetaminophen/ Hydrocodone Bitart ([place] 7.5-325 Mg) 1 tab BID PRN PO PAIN Last administered on 05/08/18at 12:15; Start 05/05/18 at 01:15 Piperacillin Sod/ Tazobactam Sod 50 ml @ 100 mls/hr Q6H IV Last administered on 05/08/18at 15:34; Start 05/05/18 at 22:00 A/P Problem List: (1) SIRS (systemic inflammatory response syndrome) ICD Code: R65.10 - Systemic inflammatory response syndrome (SIRS) of non- infectious origin without acute organ dysfunction Status: Acute (2) Elevated troponin ICD Code: R74.8 - Abnormal levels of other serum enzymes Status: Acute (3) BRANDT (acute kidney injury) ICD Code: N17.9 - Acute kidney failure, unspecified Assessment and Plan 62 years old E coli sepsis secondary to UTI - continue on IV Zosyn and vancomycin - ID ff - get US of the kidneys- no hydronephrosis, finding suggestive of chronic medical disease - repeat blood cultures in 48 hours to ensure clearance NSTEMI - elevated troponin- from demand- no complains of chest pain - seen by Cardiology- no chest pain] - lexiscan prior to DC --WILL ORDER FOR TOMORROW Chronic Leukocytosis history of Lymphoproliferative disorder History of NHL - ff CBC with sepsis- WBC trending down - consider Hematology consult if no improvement Chronic anemia -Irons studies suggestive of chronic disease Acute on top of Chronic kidney disease- creatinine trending down - get bilateral renal US- chronic medical disease- no hydronephrosis - continue IVF- decrease rate 60 cc/hr - states at one time was ff by Nephrology - Dr. Salmon as OP Increase activity- out of bed to chair PT daily Discharge Planning Pending infectious disease clearance STILL NOT CLEARED FOR DC BY DAFNE MICHELE RN AND PT AND CM Marshall Barakat DO May 08, 2018 16:18
[2018-05-09] VITALS (10 sets, daily range): BP systolic 142–162; BP diastolic 61–80; PULSE 87–104; RESP 16–18; TEMP 97.8–99.7; O2SAT 92–96
[2018-05-09] MEDS: ZOLPIDEM TARTRATE 10 MG TAB PO PRN (00:01)
[2018-05-09] MEDS: ACETAMINOPHEN/HYDROcodone 325 MG/7.5 MG TAB PO PRN ×2 (00:02→12:19)
[2018-05-09] MEDS: PIPERACIL-TAZO 2.25 GM PREMIX 50 ML IV SCH ×4 (04:00→21:04)
[2018-05-09] MEDS: LEVOTHYROXINE SODIUM 112 MCG TAB PO SCH (05:33)
[2018-05-09] MEDS: LEVOTHYROXINE SODIUM 25 MCG TAB PO SCH (05:33)
[2018-05-09 08:25] LABS: AUTOMATED NEUTROPHIL # 15.3 TH/MM3 (1.8-7.7); BASOPHIL # 0.3 TH/MM3 (0-0.2); BASOPHIL % 1.2 % (0.0-2.0); EOSINOPHIL # 0.2 TH/MM3 (0-0.4); EOSINOPHIL % 0.9 % (0.0-4.0); HEMATOCRIT 25.3 % (35.0-46.0); HEMOGLOBIN 8.1 GM/DL (11.6-15.3); LYMPH % 26.8 % (9.0-44.0); LYMPHOCYTE # 6.3 TH/MM3 (1.0-4.8); MEAN CELL VOLUME 99.3 FL (80.0-100.0); MEAN CORPUSCULAR HEMOGLOBIN 31.7 PG (27.0-34.0); MEAN CORPUSCULAR HGB CONC 31.9 % (32.0-36.0); MEAN PLATELET VOLUME 11.8 FL (7.0-11.0); MONO % 6.2 % (0.0-8.0); MONOCYTE # 1.5 TH/MM3 (0-0.9); NEUT % 64.9 % (16.0-70.0); PLATELET COUNT 284 TH/MM3 (150-450); RED BLOOD COUNT 2.55 MIL/MM3 (4.00-5.30); RED CELL DISTRIBUTION WIDTH 14.7 % (11.6-17.2); WHITE BLOOD COUNT 23.6 TH/MM3 (4.0-11.0)
[2018-05-09] MEDS: PANTOPRAZOLE SOD 20 MG DELAYED RELEASE TAB PO SCH (08:34)
[2018-05-09] MEDS: PREGABALIN 75 MG CAP PO SCH ×2 (08:34→21:04)
[2018-05-09] MEDS: CALCITRIOL 0.25 MCG CAP PO SCH (08:34)
[2018-05-09] MEDS: HEPARIN SODIUM - SQ 10,000 UNITS/ML VIAL SQ SCH ×2 (08:35→21:05)
[2018-05-09] MEDS: ASPIRIN EC 81 MG TABEC PO SCH (08:35)
[2018-05-09] MEDS: ATENOLOL 50 MG TAB PO SCH (08:35)
[2018-05-09] MEDS: SODIUM CHLORIDE 0.9% FLUSH 10 ML FLUSH IV FLUSH SCH ×2 (08:36→21:10)
[2018-05-09 08:53] LABS: ALBUMIN 2.1 GM/DL (3.4-5.0); ALT (GPT) 13 U/L (10-53); AST (GOT) 17 U/L (15-37); BICARBONATE 25.3 MEQ/L (21.0-32.0); BLOOD UREA NITROGEN 17 MG/DL (7-18); CHLORIDE 107 MEQ/L (98-107); CREATININE 2.07 MG/DL (0.50-1.00); GLOMERULAR FILTRATION RATE 29 ML/MIN (>89); GLUCOSE,RANDOM 68 MG/DL (74-106); MAGNESIUM 1.7 MG/DL (1.5-2.5); PHOSPHORUS 3.1 MG/DL (2.5-4.9); SODIUM (NA) 142 MEQ/L (136-145)
[2018-05-09 08:58] LABS: ALKALINE PHOSPHATASE 93 U/L (45-117); FREE T4 1.52 NG/DL (0.76-1.46); TOTAL BILIRUBIN ADULT 0.3 MG/DL (0.2-1.0); TOTAL PROTEIN 8.6 GM/DL (6.4-8.2)
[2018-05-09 10:08] LABS: BANDS 7 % (0-6); BASOPHILS 2 % (0-2); LYMPHOCYTES 42 % (9-44); MONOCYTES 5 % (0-8); NEUTROPHIL # MANUAL DIFF 11.8 TH/MM3 (1.8-7.7); POLYS (SEG NEUTROPHILS) 43 % (16-70)
[2018-05-09 10:10] LABS: KERATOCYTES 2+ (NORMAL)
[2018-05-09 10:11] LABS: TARGET CELLS 1+ (NORMAL)
[2018-05-09] MEDS: SODIUM CHLOR 0.9% 1000 ML INJ 1,000 ML IV SCH ×2 (11:08→21:05)
--- NOTE | 2018-05-09 11:53 | HHI.PR ---
Subjective Remarks This is a 62-year-old female with a PMH of HTN, Hodgkin's Disease in Remission, Gout, Chronic Anemia and CKD who presented to the ER w/ c/o generalized weakness , SOB and CP x3 days. States she had a gout flare and started Medrol Dosepak last Monday (6 days ago), few days after states she started feeling weak/ tired and short of breath so she stopped the steroids. Denies fever, chills or cough. No sick contacts. On arrival, BP 136/61, HR 107, O2 sat 93% on 2L NC, Afebrile. WBC 28.4. Hemoglobin 9.5, previously 8.2 on 10/12/2017. Bands 17%. Creatinine 3.03, previously 2.18 on 10/12/2017. INR 1.2. Trop 0.09. UA pending. CXR with no acute findings. S/p Vanc/Zosyn in ER. 6-16 awake and alert, no chest pain or discomfort no flank pain but states recently with terminal dysuria- "stinging at end of urination" denies history of recurrent UT no cough baseline up and ambulates with a 3 wheeled walker lab called- + gram negative rods in blood 6-17 awake and alert, afebrile feeling better, no flank pain or urinary symptoms no chest pain 6-18 afebrile, feeling better , good po no nausea or vomiting, voiding spontaneously 6-19 feeling a little better today will need lexiscan prior to dc WILL ORDER IT am labs dw RN AND PT AND CM 6-20 PATIENT IS ANXIOUS WANTS MEDICATIONS TO HAVE LEXISCAN DUE TO claustrophobia LENY RN AND PT AND CM Objective Vitals Vital Signs Date Time Temp Pulse Resp B/P (MAP) Pulse Ox O2 Delivery O2 Flow Rate FiO2 05/09/18 10:48 2.00 05/09/18 08:42 99.4 99 17 147/65 (92) 92 05/09/18 04:00 95 05/09/18 04:00 98.3 94 18 142/61 (88) 94 05/09/18 01:02 18 05/09/18 00:00 99.7 96 16 162/80 (107) 96 05/08/18 20:00 Room Air 05/08/18 20:00 100 05/08/18 20:00 99.1 96 18 137/78 (97) 97 05/08/18 20:00 91 05/08/18 17:02 158/70 (99) 05/08/18 16:58 98.4 88 17 173/73 (106) 96 05/08/18 15:53 81 05/08/18 12:40 98.6 84 21 146/65 (92) 94 05/08/18 11:59 83 I/O 05/08/18 05/08/18 05/08/18 05/09/18 05/09/18 05/09/18 07:00 15:00 23:00 07:00 15:00 23:00 Intake Total 1600 ml 720 ml 420 ml Output Total 400 ml 500 ml 800 ml Balance 1200 ml 220 ml -380 ml Intake Oral 600 ml 720 ml 420 ml IV Total 1000 ml Output Urine Total 400 ml 500 ml 800 ml # Voids 3 # Bowel Movements 0 3 Result Diagram: 05/09/18 0729 05/09/18 0720 Other Results Laboratory Tests Test 05/07/18 07:37 05/08/18 04:30 05/09/18 07:20 05/09/18 07:29 White Blood Count 17.1 TH/MM3 19.8 TH/MM3 23.6 TH/MM3 Red Blood Count 2.44 MIL/MM3 2.50 MIL/MM3 2.55 MIL/MM3 Hemoglobin 7.8 GM/DL 7.9 GM/DL 8.1 GM/DL Hematocrit 24.3 % 24.5 % 25.3 % Mean Corpuscular Volume 99.5 FL 98.0 FL 99.3 FL Mean Corpuscular Hemoglobin 32.0 PG 31.7 PG 31.7 PG Mean Corpuscular Hemoglobin Concent 32.1 % 32.3 % 31.9 % Red Cell Distribution Width 14.8 % 14.3 % 14.7 % Platelet Count 215 TH/MM3 239 TH/MM3 284 TH/MM3 Mean Platelet Volume 12.2 FL 12.1 FL 11.8 FL Neutrophils (%) (Auto) 55.6 % 60.2 % 64.9 % Lymphocytes (%) (Auto) 35.5 % 31.6 % 26.8 % Monocytes (%) (Auto) 5.7 % 5.8 % 6.2 % Eosinophils (%) (Auto) 0.7 % 0.6 % 0.9 % Basophils (%) (Auto) 2.5 % 1.8 % 1.2 % Neutrophils # (Auto) 9.5 TH/MM3 11.9 TH/MM3 15.3 TH/MM3 Lymphocytes # (Auto) 6.1 TH/MM3 6.3 TH/MM3 6.3 TH/MM3 Monocytes # (Auto) 1.0 TH/MM3 1.1 TH/MM3 1.5 TH/MM3 Eosinophils # (Auto) 0.1 TH/MM3 0.1 TH/MM3 0.2 TH/MM3 Basophils # (Auto) 0.4 TH/MM3 0.4 TH/MM3 0.3 TH/MM3 CBC Comment AUTO DIFF AUTO DIFF AUTO DIFF Differential Total Cells Counted 100 100 100 Neutrophils % (Manual) 52 % 58 % 43 % Band Neutrophils % 23 % 6 % 7 % Lymphocytes % 11 % 24 % 42 % Monocytes % 11 % 10 % 5 % Eosinophils % 3 % 1 % Neutrophils # (Manual) 12.8 TH/MM3 12.7 TH/MM3 11.8 TH/MM3 Nucleated Red Blood Cells 1 /100 WBC Differential Comment FINAL DIFF MANUAL FINAL DIFF MANUAL FINAL DIFF MANUAL Platelet Estimate NORMAL NORMAL NORMAL Platelet Morphology Comment NORMAL ENLARGED NORMAL Target Cells 1+ 1+ 1+ Red-[place] Bodies PRESENT PRESENT Blood Urea Nitrogen 27 MG/DL 22 MG/DL 17 MG/DL Creatinine 2.49 MG/DL 2.12 MG/DL 2.07 MG/DL Random Glucose 77 MG/DL 85 MG/DL 68 MG/DL Calcium Level 8.1 MG/DL 8.1 MG/DL 9.0 MG/DL Sodium Level 141 MEQ/L 142 MEQ/L 142 MEQ/L Potassium Level 4.8 MEQ/L 4.6 MEQ/L 4.4 MEQ/L Chloride Level 107 MEQ/L 107 MEQ/L 107 MEQ/L Carbon Dioxide Level 28.2 MEQ/L 26.3 MEQ/L 25.3 MEQ/L Anion Gap 6 MEQ/L 9 MEQ/L 10 MEQ/L Estimat Glomerular Filtration Rate 24 ML/MIN 28 ML/MIN 29 ML/MIN Basophils % 2 % 2 % Toxic Vacuolation PRESENT Total Protein 8.6 GM/DL Albumin 2.1 GM/DL Phosphorus Level 3.1 MG/DL Magnesium Level 1.7 MG/DL Alkaline Phosphatase 93 U/L Aspartate Amino Transf (AST/SGOT) 17 U/L Alanine Aminotransferase (ALT/SGPT) 13 U/L Total Bilirubin 0.3 MG/DL Free Thyroxine 1.52 NG/DL Thyroid Stimulating Hormone 3rd Gen 6.760 uIU/ML Keratocytes 2+ Imaging Last Impressions Renal Ultrasound 05/06/18 0000 Signed Impressions: CONCLUSION: 1. Echogenic kidneys characteristic of medical renal disease. Small right gonzales l cyst and nonobstructing left renal calcification. Chest X-Ray 05/04/18 1602 Signed Impressions: CONCLUSION: No acute disease. Lung Scan-VQ Nuclear Medicine 05/04/18 0000 Signed Impressions: CONCLUSION: 1. Negative for pulmonary embolus. Chest CT 05/04/18 0000 Signed Impressions: CONCLUSION: 1. Trace left pleural effusion. Dependent atelectasis in both lungs. [place] ss opacity most characteristic of a mild edema pattern associated with some mil d air trapping. Sign Objective Remarks GENERAL: Awake alert and oriented 3 talkative cooperative S1-S2 no S3 or S4 SKIN: Warm and dry. HEAD: Atraumatic. Normocephalic. EYES: Pupils equal and round. No scleral icterus. No injection or drainage. ENT: No nasal bleeding or discharge. Mucous membranes pink and moist. NECK: Trachea midline. No JVD. CARDIOVASCULAR: Regular rate and rhythm. RESPIRATORY: No accessory muscle use. Clear to auscultation. Breath sounds equal bilaterally. GASTROINTESTINAL: Abdomen soft, non-tender, nondistended. Hepatic and splenic margins not palpable. MUSCULOSKELETAL: Extremities without clubbing, cyanosis, or edema. No obvious deformities. NEUROLOGICAL: Awake and alert. No obvious cranial nerve deficits. Motor grossly within normal limits. 4 out of 5 muscle strength in the arms and legs. Normal speech. PSYCHIATRIC: Appropriate mood and affect; insight and judgment normal. Medications and IVs Current Medications Aspirin (Aspirin Chew) 243 mg ONCE ONCE PO Last administered on 05/04/18at 16: 39; Start 05/04/18 at 16:15; Stop 05/04/18 at 16:16; Status DC Sodium Chloride (NS Flush) 2 ml UNSCH PRN IVF FLUSH AFTER USING IV ACCESS Last administered on 05/04/18at 16:39; Start 05/04/18 at 16:15; Stop 05/04/18 at 19:35 ; Status DC Vancomycin HCl 1000 mg/Sodium Chloride 250 ml @ 250 mls/hr ONCE ONCE IV Last administered on 05/04/18at 18:44; Start 05/04/18 at 18:30; Stop 05/04/18 at 19:29 ; Status DC Piperacillin Sod/ Tazobactam Sod 50 ml @ 100 mls/hr ONCE ONCE IV Last administered on 05/04/18at 19:41; Start 05/04/18 at 18:30; Stop 05/04/18 at 19:03 ; Status DC Sodium Chloride (NS Flush) 2 ml UNSCH PRN IV FLUSH FLUSH AFTER USING IV ACCESS ; Start 05/04/18 at 18:45 Sodium Chloride (NS Flush) 2 ml BID IV FLUSH Last administered on 05/09/18at 08: 36; Start 05/04/18 at 21:00 Acetaminophen (Tylenol) 650 mg Q4H PRN PO TEMP > 100.4; Start 05/04/18 at 18:45 Metoclopramide HCl (Reglan Inj) 5 mg Q6H PRN IV PUSH NAUSEA OR VOMITING; Start 05/04/18 at 18:45 Acetaminophen (Tylenol) 650 mg Q6H PRN PO PAIN SCALE 1 TO 2; Start 05/04/18 at 18:45; Stop 05/05/18 at 01:20; Status DC Naloxone HCl (Narcan Inj) 0.4 mg UNSCH PRN IV PUSH SEE LABEL COMMENTS; Start at 18:45 Magnesium Hydroxide (Milk Of [place]victoria Liq) 30 ml Q12H PRN PO Mild constipation ; Start 05/04/18 at 18:45 Piperacillin Sod/ Tazobactam Sod 50 ml @ 100 mls/hr Q8H IV ; Start 05/05/18 at 03:00; Stop 05/05/18 at 03:00; Status DC Albuterol/ Ipratropium (Duoneb Neb) 1 ampule Q2HR NEB PRN NEB SOB/WHEEZING; Start 05/04/18 at 18:45 Hydralazine HCl (Apresoline) 25 mg Q8H PRN PO SBP>160, DBP>90 Last administered on 05/08/18at 00:22; Start 05/04/18 at 18:45 Lorazepam (Ativan Inj) 1 mg ONCE ONCE IV PUSH Last administered on 05/04/18at 18:56; Start 05/04/18 at 19:00; Stop 05/04/18 at 19:03; Status DC Piperacillin Sod/ Tazobactam Sod 50 ml @ 100 mls/hr Q6H IV Last administered on 05/05/18at 15:29; Start 05/05/18 at 01:00; Stop 05/05/18 at 16:48; Status DC Aspirin (Ecotrin Ec) 81 mg DAILY PO Last administered on 05/09/18at 08:35; Start 05/05/18 at 09:00 Albuterol/ Ipratropium (Duoneb Neb) 1 ampule Q4HR NEB PRN NEB SOB/WHEEZING; Start 05/04/18 at 19:00 Pharmacy Profile Note 0 ml @ 0 mls/hr UNSCH OTHER ; Start 05/04/18 at 19:00; Stop 05/06/18 at 13:43; Status DC Atenolol (Tenormin) 50 mg DAILY PO Last administered on 05/09/18at 08:35; Start 05/05/18 at 09:00 Calcitriol (Rocaltrol) 0.25 mcg DAILY PO Last administered on 05/09/18at 08:34; Start 05/05/18 at 09:00 Pregabalin (Lyrica) 75 mg BID PO Last administered on 05/09/18at 08:34; Start at 21:00 Zolpidem Tartrate (Ambien) 10 mg HS PRN PO INSOMNIA Last administered on at 00:01; Start 05/04/18 at 19:00 Levothyroxine Sodium (Synthroid) 25 mcg DAILY@0600 PO Last administered on 05/09at 05:33; Start 05/05/18 at 06:00 Pantoprazole Sodium (Protonix) 20 mg DAILY PO Last administered on 05/09/18at 08 :34; Start 05/05/18 at 09:00 Levothyroxine Sodium (Synthroid) 112 mcg DAILY@0600 PO Last administered on at 05:33; Start 05/05/18 at 06:00 Vancomycin HCl 1000 mg/Sodium Chloride 250 ml @ 250 mls/hr ONCE ONCE IV Last administered on 05/04/18at 20:19; Start 05/04/18 at 20:00; Stop 05/04/18 at 20:59 ; Status DC Sodium Chloride 1,000 ml @ 60 mls/hr [id number] IV Last administered on at 11:08; Start 05/04/18 at 19:15 Heparin Sodium (Porcine) (Heparin Inj) 5,000 units Q12HR SQ Last administered on 05/09/18at 08:35; Start 05/04/18 at 21:00 Acetaminophen/ Hydrocodone Bitart ([place] 7.5-325 Mg) 1 tab BID PRN PO PAIN Last administered on 05/09/18at 00:02; Start 05/05/18 at 01:15 Piperacillin Sod/ Tazobactam Sod 50 ml @ 100 mls/hr Q6H IV Last administered on 05/09/18at 11:08; Start 05/05/18 at 22:00 A/P Problem List: (1) SIRS (systemic inflammatory response syndrome) ICD Code: R65.10 - Systemic inflammatory response syndrome (SIRS) of non- infectious origin without acute organ dysfunction Status: Acute (2) Elevated troponin ICD Code: R74.8 - Abnormal levels of other serum enzymes Status: Acute (3) BRANDT (acute kidney injury) ICD Code: N17.9 - Acute kidney failure, unspecified Assessment and Plan 62 years old E coli sepsis secondary to UTI - continue on IV Zosyn and vancomycin - ID ff - get US of the kidneys- no hydronephrosis, finding suggestive of chronic medical disease - repeat blood cultures in 48 hours to ensure clearance NSTEMI - elevated troponin- from demand- no complains of chest pain - seen by Cardiology- no chest pain] - lexiscan prior to DC --WILL ORDER FOR TODAY Chronic Leukocytosis history of Lymphoproliferative disorder History of NHL - ff CBC with sepsis- WBC trending down - consider Hematology consult if no improvement Chronic anemia -Irons studies suggestive of chronic disease Acute on top of Chronic kidney disease- creatinine trending down - get bilateral renal US- chronic medical disease- no hydronephrosis - continue IVF- decrease rate 60 cc/hr - states at one time was ff by Nephrology - Dr. Salmon as OP Increase activity- out of bed to chair PT daily Anxiety and claustrophobia will get medications prior to the Lexiscan Discharge Planning Pending infectious disease clearance STILL NOT CLEARED FOR DC BY ID LENY RN AND PT AND Marshall Amanda DO May 09, 2018 11:53
[2018-05-09] MEDS ORDERED: LORazepam 2 MG TAB PO ONE (12:00)
[2018-05-09 22:51] LABS: HEMOGLOBIN A1C 6.2 % (4.3-6.0)
[2018-05-10] VITALS (9 sets, daily range): BP systolic 115–162; BP diastolic 62–78; PULSE 74–100; RESP 16–20; TEMP 95.3–99.1; O2SAT 91–100
[2018-05-10] MEDS: ACETAMINOPHEN/HYDROcodone 325 MG/7.5 MG TAB PO PRN ×2 (00:17→13:16)
[2018-05-10] MEDS: ZOLPIDEM TARTRATE 10 MG TAB PO PRN ×2 (00:17→21:38)
[2018-05-10] MEDS: PIPERACIL-TAZO 2.25 GM PREMIX 50 ML IV SCH ×4 (04:00→21:31)
[2018-05-10] MEDS: LEVOTHYROXINE SODIUM 112 MCG TAB PO SCH (06:11)
[2018-05-10] MEDS: LEVOTHYROXINE SODIUM 25 MCG TAB PO SCH (06:11)
[2018-05-10] MEDS: ALLOPURINOL 100 MG TAB PO SCH ×2 (06:48→07:20)
[2018-05-10 08:54] LABS: HEMATOCRIT 23.6 % (35.0-46.0); HEMOGLOBIN 7.7 GM/DL (11.6-15.3); MEAN CELL VOLUME 98.3 FL (80.0-100.0); MEAN CORPUSCULAR HGB CONC 32.6 % (32.0-36.0); MEAN PLATELET VOLUME 11.6 FL (7.0-11.0); PLATELET COUNT 266 TH/MM3 (150-450); RED CELL DISTRIBUTION WIDTH 14.5 % (11.6-17.2); WHITE BLOOD COUNT 18.5 TH/MM3 (4.0-11.0)
[2018-05-10] MEDS: SODIUM CHLORIDE 0.9% FLUSH 10 ML FLUSH IV FLUSH SCH ×2 (09:00→21:31)
[2018-05-10 09:15] LABS: ALBUMIN 1.9 GM/DL (3.4-5.0); AST (GOT) 18 U/L (15-37); BICARBONATE 27.7 MEQ/L (21.0-32.0); BLOOD UREA NITROGEN 15 MG/DL (7-18); CALCIUM 8.7 MG/DL (8.5-10.1); CHLORIDE 106 MEQ/L (98-107); CREATININE 1.85 MG/DL (0.50-1.00); GLOMERULAR FILTRATION RATE 33 ML/MIN (>89); GLUCOSE,RANDOM 75 MG/DL (74-106); MAGNESIUM 1.7 MG/DL (1.5-2.5); SODIUM (NA) 142 MEQ/L (136-145)
[2018-05-10 09:16] LABS: ALT (GPT) 12 U/L (10-53); PHOSPHORUS 3.9 MG/DL (2.5-4.9)
[2018-05-10] MEDS ORDERED: REGADENOSON INJ 0.4 MG/5 ML SYR ONE (09:16)
[2018-05-10 09:19] LABS: ALKALINE PHOSPHATASE 80 U/L (45-117); TOTAL BILIRUBIN ADULT 0.2 MG/DL (0.2-1.0); TOTAL PROTEIN 8.2 GM/DL (6.4-8.2)
[2018-05-10 10:06] LABS: BANDS 4 % (0-6); BASOPHILS 1 % (0-2); LYMPHOCYTES 31 % (9-44); MONOCYTES 6 % (0-8); NEUTROPHIL # MANUAL DIFF 11.5 TH/MM3 (1.8-7.7); POLYS (SEG NEUTROPHILS) 58 % (16-70); TARGET CELLS 1+ (NORMAL)
[2018-05-10] MEDS: CALCITRIOL 0.25 MCG CAP PO SCH (11:37)
[2018-05-10] MEDS: PANTOPRAZOLE SOD 20 MG DELAYED RELEASE TAB PO SCH (11:37)
[2018-05-10] MEDS: ASPIRIN EC 81 MG TABEC PO SCH (11:37)
[2018-05-10] MEDS: ATENOLOL 50 MG TAB PO SCH (11:37)
[2018-05-10] MEDS: hydrALAZINE HCL 25 MG TAB PO PRN (11:37)
[2018-05-10] MEDS: HEPARIN SODIUM - SQ 10,000 UNITS/ML VIAL SQ SCH ×2 (11:48→21:30)
[2018-05-10] MEDS: PREGABALIN 75 MG CAP PO SCH ×2 (11:48→21:30)
--- NOTE | 2018-05-10 12:46 | RADRPT ---
EXAM DATE: 05/10/2018 11:35 AM EDT AGE/SEX: 62 years / Female INDICATIONS:Myocardial infarction. Angina Ischemic disease with elevated troponins. CLINICAL DATA: This is the patient's initial encounter. Patient reports that signs and symptoms have been present for 1 day and indicates a pain score of 0/10. MEDICAL/SURGICAL HISTORY: Hypertension. Renal failure, chronic. Hodgkin's disease. Cholecyste ctomy. Splenectomy. Thyroidectomy. Bilateral knee replacement. COMPARISON: No prior exams available for comparison. No external comparison. DOSE: 30.0 mCi Tc 99m Myoview at rest 30.1 mCi [id number] at rest 0.4 mg Lexiscan STRESS SYMPTOMS: Short of breath. EJECTION FRACTION: 63 % TECHNIQUE: The patient underwent pharmacologic stress with infusion of prescribed dose. Continuous ECG tracing was monitored during stress. Gated SPECT imaging was performed after stress and conventi onal SPECT imaging was performed at rest. The examination was performed on a SPECT/CT scanner, both attenuation and non-corrected datasets were reviewed. FINDINGS: Distribution: The maximum perfused segment at stress is in the anterior wall. Raw data images demons trate prominent breast attenuation anterior and lateral. The lateral breast attenuation also superimp oses upon diaphragmatic attenuation. There is also elevation of the right hemidiaphragm with activity in the liver at the same axial level as the left ventricle creating differential scatter artifacts o n the septal segments. Perfusion Study: The pattern of perfusion at stress is within normal limits, with regional variatio ns of perfusion within 30%. Decreased uptake in the inferolateral segments on both the stress and res t images correlates with areas of breast attenuation. The pattern of perfusion at rest and stress is unchanged without evidence of redistribution.. Gated Study: There are intact wall motion and wall thickening without hypokinetic or dyskinetic segm ents. The ejection fraction is calculated at 63%. RISK CATEGORY: Low (<1% Annual Motality Rate) CONCLUSION: 1. No evidence of stress-induced ischemia. 2. Intact wall motion with 63% ejection fraction. Electronically signed by: Brannon Olson MD 05/10/2018 12:44 PM EDT
--- NOTE | 2018-05-10 12:58 | HHI.PR ---
Subjective Remarks This is a 62-year-old female with a PMH of HTN, Hodgkin's Disease in Remission, Gout, Chronic Anemia and CKD who presented to the ER w/ c/o generalized weakness , SOB and CP x3 days. States she had a gout flare and started Medrol Dosepak last Monday (6 days ago), few days after states she started feeling weak/ tired and short of breath so she stopped the steroids. Denies fever, chills or cough. No sick contacts. On arrival, BP 136/61, HR 107, O2 sat 93% on 2L NC, Afebrile. WBC 28.4. Hemoglobin 9.5, previously 8.2 on 10/12/2017. Bands 17%. Creatinine 3.03, previously 2.18 on 10/12/2017. INR 1.2. Trop 0.09. UA pending. CXR with no acute findings. S/p Vanc/Zosyn in ER. 6-16 awake and alert, no chest pain or discomfort no flank pain but states recently with terminal dysuria- "stinging at end of urination" denies history of recurrent UT no cough baseline up and ambulates with a 3 wheeled walker lab called- + gram negative rods in blood 6-17 awake and alert, afebrile feeling better, no flank pain or urinary symptoms no chest pain -18 afebrile, feeling better , good po no nausea or vomiting, voiding spontaneously 6-19 feeling a little better today will need lexiscan prior to dc WILL ORDER IT am labs parth RN AND PT AND CM 6 PATIENT IS ANXIOUS WANTS MEDICATIONS TO HAVE LEXISCAN DUE TO claustrophobia DW RN AND PT AND CM 05-10 LEXISCAN WAS GOOD NO ISCHEMIA EF 63% NOT CLEARED BY ID WANTS ONCOLOGY EVALUATION DUE TO LEUKOCYTOSIS AM LABS MONITOR IN HOSPITAL DW RN AND PT AND FAMILY AND ID Objective Vitals Vital Signs Date Time Temp Pulse Resp B/P (MAP) Pulse Ox O2 Delivery O2 Flow Rate FiO2 05/10/18 11:03 74 05/10/18 11:03 05/10/18 10:48 96 21 05/10/18 06:08 97.8 88 18 116/68 (84) 95 05/10/18 00:22 98.7 100 18 152/66 (94) 96 05/10/18 00:00 Room Air 05/09/18 23:45 96 05/09/18 21:55 97.8 104 18 153/76 (101) 92 05/09/18 20:00 Room Air 05/09/18 19:49 96 05/09/18 16:40 98.2 90 18 144/65 (91) 94 05/09/18 15:40 92 I/O 05/09/18 05/09/18 05/09/18 05/10/18 05/10/18 05/10/18 07:00 15:00 23:00 07:00 15:00 23:00 Intake Total 420 ml 840 ml 240 ml Output Total 800 ml 1000 ml Balance -380 ml -160 ml 240 ml Intake Oral 420 ml 840 ml 240 ml Output Urine Total 800 ml 1000 ml # Voids 3 # Bowel Movements 3 0 Result Diagram: 05/10/18 0811 05/10/18 0811 Other Results Laboratory Tests Test 05/08/18 04:30 05/09/18 07:20 05/09/18 07:29 05/10/18 08:11 White Blood Count 19.8 TH/MM3 23.6 TH/MM3 18.5 TH/MM3 Red Blood Count 2.50 MIL/MM3 2.55 MIL/MM3 2.40 MIL/MM3 Hemoglobin 7.9 GM/DL 8.1 GM/DL 7.7 GM/DL Hematocrit 24.5 % 25.3 % 23.6 % Mean Corpuscular Volume 98.0 FL 99.3 FL 98.3 FL Mean Corpuscular Hemoglobin 31.7 PG 31.7 PG 32.0 PG Mean Corpuscular Hemoglobin Concent 32.3 % 31.9 % 32.6 % Red Cell Distribution Width 14.3 % 14.7 % 14.5 % Platelet Count 239 TH/MM3 284 TH/MM3 266 TH/MM3 Mean Platelet Volume 12.1 FL 11.8 FL 11.6 FL Neutrophils (%) (Auto) 60.2 % 64.9 % Lymphocytes (%) (Auto) 31.6 % 26.8 % Monocytes (%) (Auto) 5.8 % 6.2 % Eosinophils (%) (Auto) 0.6 % 0.9 % Basophils (%) (Auto) 1.8 % 1.2 % Neutrophils # (Auto) 11.9 TH/MM3 15.3 TH/MM3 Lymphocytes # (Auto) 6.3 TH/MM3 6.3 TH/MM3 Monocytes # (Auto) 1.1 TH/MM3 1.5 TH/MM3 Eosinophils # (Auto) 0.1 TH/MM3 0.2 TH/MM3 Basophils # (Auto) 0.4 TH/MM3 0.3 TH/MM3 CBC Comment AUTO DIFF AUTO DIFF AUTO DIFF Differential Total Cells Counted 100 100 100 Neutrophils % (Manual) 58 % 43 % 58 % Band Neutrophils % 6 % 7 % 4 % Lymphocytes % 24 % 42 % 31 % Monocytes % 10 % 5 % 6 % Basophils % 2 % 2 % 1 % Neutrophils # (Manual) 12.7 TH/MM3 11.8 TH/MM3 11.5 TH/MM3 Differential Comment FINAL DIFF MANUAL FINAL DIFF MANUAL FINAL DIFF MANUAL Toxic Vacuolation PRESENT Platelet Estimate NORMAL NORMAL NORMAL Platelet Morphology Comment ENLARGED NORMAL ENLARGED Target Cells 1+ 1+ 1+ Red-[place] Bodies PRESENT Blood Urea Nitrogen 22 MG/DL 17 MG/DL 15 MG/DL Creatinine 2.12 MG/DL 2.07 MG/DL 1.85 MG/DL Random Glucose 85 MG/DL 68 MG/DL 75 MG/DL Calcium Level 8.1 MG/DL 9.0 MG/DL 8.7 MG/DL Sodium Level 142 MEQ/L 142 MEQ/L 142 MEQ/L Potassium Level 4.6 MEQ/L 4.4 MEQ/L 4.6 MEQ/L Chloride Level 107 MEQ/L 107 MEQ/L 106 MEQ/L Carbon Dioxide Level 26.3 MEQ/L 25.3 MEQ/L 27.7 MEQ/L Anion Gap 9 MEQ/L 10 MEQ/L 8 MEQ/L Estimat Glomerular Filtration Rate 28 ML/MIN 29 ML/MIN 33 ML/MIN Total Protein 8.6 GM/DL 8.2 GM/DL Albumin 2.1 GM/DL 1.9 GM/DL Phosphorus Level 3.1 MG/DL 3.9 MG/DL Magnesium Level 1.7 MG/DL 1.7 MG/DL Alkaline Phosphatase 93 U/L 80 U/L Aspartate Amino Transf (AST/SGOT) 17 U/L 18 U/L Alanine Aminotransferase (ALT/SGPT) 13 U/L 12 U/L Total Bilirubin 0.3 MG/DL 0.2 MG/DL Hemoglobin A1c 6.2 % Free Thyroxine 1.52 NG/DL Thyroid Stimulating Hormone 3rd Gen 6.760 uIU/ML Eosinophils % 1 % Keratocytes 2+ Imaging Last Impressions Myocardial Perfusion Scan Nuc Med 05/09/18 0000 Signed Impressions: CONCLUSION: 1. No evidence of stress-induced ischemia. 2. Intact wall motion with 63% ejection fraction. Renal Ultrasound 05/06/18 0000 Signed Impressions: CONCLUSION: 1. Echogenic kidneys characteristic of medical renal disease. Small right gonzales l cyst and nonobstructing left renal calcification. Chest X-Ray 05/04/18 1602 Signed Impressions: CONCLUSION: No acute disease. Lung Scan-VQ Nuclear Medicine 05/04/18 0000 Signed Impressions: CONCLUSION: 1. Negative for pulmonary embolus. Chest CT 05/04/18 0000 Signed Impressions: CONCLUSION: 1. Trace left pleural effusion. Dependent atelectasis in both lungs. Groundgla ss opacity most characteristic of a mild edema pattern associated with some mil d air trapping. Sign Objective Remarks GENERAL: Awake alert and oriented 3 talkative cooperative S1-S2 no S3 or S4 SKIN: Warm and dry. HEAD: Atraumatic. Normocephalic. EYES: Pupils equal and round. No scleral icterus. No injection or drainage. ENT: No nasal bleeding or discharge. Mucous membranes pink and moist. NECK: Trachea midline. No JVD. CARDIOVASCULAR: Regular rate and rhythm. RESPIRATORY: No accessory muscle use. Clear to auscultation. Breath sounds equal bilaterally. GASTROINTESTINAL: Abdomen soft, non-tender, nondistended. Hepatic and splenic margins not palpable. MUSCULOSKELETAL: Extremities without clubbing, cyanosis, or edema. No obvious deformities. NEUROLOGICAL: Awake and alert. No obvious cranial nerve deficits. Motor grossly within normal limits. 4 out of 5 muscle strength in the arms and legs. Normal speech. PSYCHIATRIC: Appropriate mood and affect; insight and judgment normal. Medications and IVs Current Medications Aspirin (Aspirin Chew) 243 mg ONCE ONCE PO Last administered on 05/04/18at 16: 39; Start 05/04/18 at 16:15; Stop 05/04/18 at 16:16; Status DC Sodium Chloride (NS Flush) 2 ml UNSCH PRN IVF FLUSH AFTER USING IV ACCESS Last administered on 05/04/18at 16:39; Start 05/04/18 at 16:15; Stop 05/04/18 at 19:35 ; Status DC Vancomycin HCl 1000 mg/Sodium Chloride 250 ml @ 250 mls/hr ONCE ONCE IV Last administered on 05/04/18at 18:44; Start 05/04/18 at 18:30; Stop 05/04/18 at 19:29 ; Status DC Piperacillin Sod/ Tazobactam Sod 50 ml @ 100 mls/hr ONCE ONCE IV Last administered on 05/04/18at 19:41; Start 05/04/18 at 18:30; Stop 05/04/18 at 19:03 ; Status DC Sodium Chloride (NS Flush) 2 ml UNSCH PRN IV FLUSH FLUSH AFTER USING IV ACCESS ; Start 05/04/18 at 18:45 Sodium Chloride (NS Flush) 2 ml BID IV FLUSH Last administered on 05/09/18at 21: 10; Start 05/04/18 at 21:00 Acetaminophen (Tylenol) 650 mg Q4H PRN PO TEMP > 100.4; Start 05/04/18 at 18:45 Metoclopramide HCl (Reglan Inj) 5 mg Q6H PRN IV PUSH NAUSEA OR VOMITING; Start 05/04/18 at 18:45 Acetaminophen (Tylenol) 650 mg Q6H PRN PO PAIN SCALE 1 TO 2; Start 05/04/18 at 18:45; Stop 05/05/18 at 01:20; Status DC Naloxone HCl (Narcan Inj) 0.4 mg UNSCH PRN IV PUSH SEE LABEL COMMENTS; Start at 18:45 Magnesium Hydroxide (Milk Of Magnesia Liq) 30 ml Q12H PRN PO Mild constipation ; Start 05/04/18 at 18:45 Piperacillin Sod/ Tazobactam Sod 50 ml @ 100 mls/hr Q8H IV ; Start 05/05/18 at 03:00; Stop 05/05/18 at 03:00; Status DC Albuterol/ Ipratropium (Duoneb Neb) 1 ampule Q2HR NEB PRN NEB SOB/WHEEZING; Start 05/04/18 at 18:45 Hydralazine HCl (Apresoline) 25 mg Q8H PRN PO SBP>160, DBP>90 Last administered on 05/10/18at 11:37; Start 05/04/18 at 18:45 Lorazepam (Ativan Inj) 1 mg ONCE ONCE IV PUSH Last administered on 05/04/18at 18:56; Start 05/04/18 at 19:00; Stop 05/04/18 at 19:03; Status DC Piperacillin Sod/ Tazobactam Sod 50 ml @ 100 mls/hr Q6H IV Last administered on 05/05/18at 15:29; Start 05/05/18 at 01:00; Stop 05/05/18 at 16:48; Status DC Aspirin (Ecotrin Ec) 81 mg DAILY PO Last administered on 05/10/18at 11:37; Start 05/05/18 at 09:00 Albuterol/ Ipratropium (Duoneb Neb) 1 ampule Q4HR NEB PRN NEB SOB/WHEEZING; Start 05/04/18 at 19:00 Pharmacy Profile Note 0 ml @ 0 mls/hr UNSCH OTHER ; Start 05/04/18 at 19:00; Stop 05/06/18 at 13:43; Status DC Atenolol (Tenormin) 50 mg DAILY PO Last administered on 05/10/18at 11:37; Start 05/05/18 at 09:00 Calcitriol (Rocaltrol) 0.25 mcg DAILY PO Last administered on 05/10/18at 11:37; Start 05/05/18 at 09:00 Pregabalin (Lyrica) 75 mg BID PO Last administered on 05/10/18at 11:48; Start at 21:00 Zolpidem Tartrate (Ambien) 10 mg HS PRN PO INSOMNIA Last administered on at 00:17; Start 05/04/18 at 19:00 Levothyroxine Sodium (Synthroid) 25 mcg DAILY@0600 PO Last administered on 05/10at 06:11; Start 05/05/18 at 06:00 Pantoprazole Sodium (Protonix) 20 mg DAILY PO Last administered on 05/10/18at 11 :37; Start 05/05/18 at 09:00 Levothyroxine Sodium (Synthroid) 112 mcg DAILY@0600 PO Last administered on at 06:11; Start 05/05/18 at 06:00 Vancomycin HCl 1000 mg/Sodium Chloride 250 ml @ 250 mls/hr ONCE ONCE IV Last administered on 05/04/18at 20:19; Start 05/04/18 at 20:00; Stop 05/04/18 at 20:59 ; Status DC Sodium Chloride 1,000 ml @ 60 mls/hr [id number] IV Last administered on at 21:05; Start 05/04/18 at 19:15 Heparin Sodium (Porcine) (Heparin Inj) 5,000 units Q12HR SQ Last administered on 05/10/18at 11:48; Start 05/04/18 at 21:00 Acetaminophen/ Hydrocodone Bitart ([place] 7.5-325 Mg) 1 tab BID PRN PO PAIN Last administered on 05/10/18at 00:17; Start 05/05/18 at 01:15 Piperacillin Sod/ Tazobactam Sod 50 ml @ 100 mls/hr Q6H IV Last administered on 05/10/18at 11:38; Start 05/05/18 at 22:00 Lorazepam (Ativan) 2 mg ONCE ONCE PO Last administered on 05/09/18at 13:01; Start 05/09/18 at 12:00; Stop 05/09/18 at 12:20; Status DC Allopurinol (Zyloprim) 100 mg DAILY PO Last administered on 05/10/18at 06:48; Start 05/10/18 at 07:00 Regadenoson (Lexiscan Inj) 0.4 mg STK-MED ONCE .ROUTE Last administered on 05/10at 09:16; Start 05/10/18 at 09:16; Stop 05/10/18 at 09:17; Status DC A/P Problem List: (1) SIRS (systemic inflammatory response syndrome) ICD Code: R65.10 - Systemic inflammatory response syndrome (SIRS) of non- infectious origin without acute organ dysfunction Status: Acute (2) Elevated troponin ICD Code: R74.8 - Abnormal levels of other serum enzymes Status: Acute (3) BRANDT (acute kidney injury) ICD Code: N17.9 - Acute kidney failure, unspecified Assessment and Plan 62 years old E coli sepsis secondary to UTI - continue on IV Zosyn and vancomycin - ID ff - get US of the kidneys- no hydronephrosis, finding suggestive of chronic medical disease - repeat blood cultures in 48 hours to ensure clearance NSTEMI - elevated troponin- from demand- no complains of chest pain - seen by Cardiology- no chest pain] - lexiscan prior to DC --WAS STABLE NO ISCHEMIA EF 63% Chronic Leukocytosis history of Lymphoproliferative disorder History of NHL - ff CBC with sepsis- WBC trending down - consider Hematology consult if no improvement- ID WANTS CONSULT Chronic anemia -Irons studies suggestive of chronic disease Acute on top of Chronic kidney disease- creatinine trending down - get bilateral renal US- chronic medical disease- no hydronephrosis - continue IVF- decrease rate 60 cc/hr - states at one time was ff by Nephrology - Dr. Salmon as OP Increase activity- out of bed to chair PT daily Anxiety and claustrophobia will get medications prior to the Lexiscan- TOLERATED WELL Discharge Planning Pending infectious disease clearance STILL NOT CLEARED FOR DC BY ID PARTH RN AND PT AND CM Marshall Barakat DO May 10, 2018 12:58
--- NOTE | 2018-05-10 14:17 | HHI.IDPN ---
Note Infectious Disease Note Patient continues to feel tired and sleepy. She reports pain in her feet. White blood cell count remains elevated. Afebrile. Blood cultures negative 3 days. No shortness of breath. PAST MEDICAL HISTORY: Hodgkin's lymphoma in remission, gout, chronic anemia, chronic kidney disease, hypertension, history of splenectomy, history of cholecystectomy, history of thyroidectomy, history of bilateral knee replacements. ALLERGIES: DOXYCYCLINE, SULFAMETHOXAZOLE, TRIMETHOPRIM. Antibiotics: Piperacillin/tazobactam. Objective: Vital Signs Date Time Temp Pulse Resp B/P (MAP) Pulse Ox O2 Delivery O2 Flow Rate FiO2 05/10/18 11:03 74 05/10/18 11:03 05/10/18 10:48 96 21 05/10/18 06:08 97.8 88 18 116/68 (84) 95 05/10/18 00:22 98.7 100 18 152/66 (94) 96 05/10/18 00:00 Room Air 05/09/18 23:45 96 05/09/18 21:55 97.8 104 18 153/76 (101) 92 05/09/18 20:00 Room Air 05/09/18 19:49 96 05/09/18 16:40 98.2 90 18 144/65 (91) 94 05/09/18 15:40 92 Laboratory Tests Test 05/09/18 07:29 05/10/18 08:11 White Blood Count 23.6 TH/MM3 18.5 TH/MM3 Red Blood Count 2.55 MIL/MM3 2.40 MIL/MM3 Hemoglobin 8.1 GM/DL 7.7 GM/DL Hematocrit 25.3 % 23.6 % Mean Corpuscular Volume 99.3 FL 98.3 FL Mean Corpuscular Hemoglobin 31.7 PG 32.0 PG Mean Corpuscular Hemoglobin Concent 31.9 % 32.6 % Red Cell Distribution Width 14.7 % 14.5 % Platelet Count 284 TH/MM3 266 TH/MM3 Mean Platelet Volume 11.8 FL 11.6 FL Neutrophils (%) (Auto) 64.9 % Lymphocytes (%) (Auto) 26.8 % Monocytes (%) (Auto) 6.2 % Eosinophils (%) (Auto) 0.9 % Basophils (%) (Auto) 1.2 % Neutrophils # (Auto) 15.3 TH/MM3 Lymphocytes # (Auto) 6.3 TH/MM3 Monocytes # (Auto) 1.5 TH/MM3 Eosinophils # (Auto) 0.2 TH/MM3 Basophils # (Auto) 0.3 TH/MM3 CBC Comment AUTO DIFF AUTO DIFF Differential Total Cells Counted 100 100 Neutrophils % (Manual) 43 % 58 % Band Neutrophils % 7 % 4 % Lymphocytes % 42 % 31 % Monocytes % 5 % 6 % Eosinophils % 1 % Basophils % 2 % 1 % Neutrophils # (Manual) 11.8 TH/MM3 11.5 TH/MM3 Differential Comment FINAL DIFF MANUAL FINAL DIFF MANUAL Platelet Estimate NORMAL NORMAL Platelet Morphology Comment NORMAL ENLARGED Target Cells 1+ 1+ Keratocytes 2+ Laboratory Tests Test 05/09/18 07:20 05/10/18 08:11 Blood Urea Nitrogen 17 MG/DL 15 MG/DL Creatinine 2.07 MG/DL 1.85 MG/DL Random Glucose 68 MG/DL 75 MG/DL Total Protein 8.6 GM/DL 8.2 GM/DL Albumin 2.1 GM/DL 1.9 GM/DL Calcium Level 9.0 MG/DL 8.7 MG/DL Phosphorus Level 3.1 MG/DL 3.9 MG/DL Magnesium Level 1.7 MG/DL 1.7 MG/DL Alkaline Phosphatase 93 U/L 80 U/L Aspartate Amino Transf (AST/SGOT) 17 U/L 18 U/L Alanine Aminotransferase (ALT/SGPT) 13 U/L 12 U/L Total Bilirubin 0.3 MG/DL 0.2 MG/DL Sodium Level 142 MEQ/L 142 MEQ/L Potassium Level 4.4 MEQ/L 4.6 MEQ/L Chloride Level 107 MEQ/L 106 MEQ/L Carbon Dioxide Level 25.3 MEQ/L 27.7 MEQ/L Anion Gap 10 MEQ/L 8 MEQ/L Estimat Glomerular Filtration Rate 29 ML/MIN 33 ML/MIN Hemoglobin A1c 6.2 % Free Thyroxine 1.52 NG/DL Thyroid Stimulating Hormone 3rd Gen 6.760 uIU/ML Microbiology Date/Time Source Procedure Growth Status 05/04/18 18:35 Blood Peripheral Aerobic Blood Culture - Preliminary NO GROWTH IN 2 DAYS Resulted 05/04/18 18:35 Blood Peripheral Anaerobic Blood Culture - Preliminary NO GROWTH IN 2 DAYS Resulted 05/04/18 18:30 Blood Peripheral Aerobic Blood Culture - Preliminary NO GROWTH IN 2 DAYS Resulted 05/04/18 18:30 Anaerobic Blood Culture - Preliminary Escherichia Coli Resulted 05/04/18 18:35 Urine Clean Catch Urine Culture - Final Escherichia Coli Complete Imaging: Myocardial Perfusion Scan Nuc Med 05/09/18 0000 Signed Impressions: CONCLUSION: 1. No evidence of stress-induced ischemia. 2. Intact wall motion with 63% ejection fraction. Renal Ultrasound 05/06/18 0000 Signed Impressions: CONCLUSION: 1. Echogenic kidneys characteristic of medical renal disease. Small right gonzales l cyst and nonobstructing left renal calcification. Chest X-Ray 05/04/18 1602 Signed Impressions: CONCLUSION: No acute disease. Lung Scan-VQ Nuclear Medicine 05/04/18 0000 Signed Impressions: CONCLUSION: 1. Negative for pulmonary embolus. Chest CT 05/04/18 Signed Impressions: CONCLUSION: 1. Trace left pleural effusion. Dependent atelectasis in both lungs. Groundgla ss opacity most characteristic of a mild edema pattern associated with some mil d air trapping. Sign PHYSICAL EXAMINATION: GENERAL: Patient is somnolent. HEENT: Extraocular movements grossly intact. Pupils reactive to light. No icterus. Oropharynx Moist mucosa. No lesions. NECK: Supple without adenopathy. LUNGS: Clear. HEART: Regular S1 and S2. Slight systolic murmur at the left sternal border. ABDOMEN: Bowel sounds present, obese, soft, nontender. EXTREMITIES: No clubbing, cyanosis. Edema at the right ankle. SKIN: No rash. NEUROLOGIC: No gross focal findings. PSYCHIATRIC: Calm and cooperative. IMPRESSION: 1. E. coli sepsis, urinary source. 2. Urinary tract infection due E. coli. 3. Generalized malaise secondary to infection versus other cause. She has chronic renal disease. 4. Leukocytosis may be secondary to infection. However white blood cell count remains elevated despite antibiotics. 5. Pain in the right great toe. She reports history of gout. RECOMMENDATIONS: 1. Continue the piperacillin/tazobactam. 2. Monitor white blood cell count. I am concerned about the continued white blood cell count elevation. Obtain hematology/oncology consult for the persistent white blood cell count along with persistent fatigue. 3. May be able to change to an oral antibiotic for treatment outpatient once decision about the white blood cell count is made by oncology. I will switch the piperacillin/tazobactam to ceftriaxone today and we can transition to cefuroxime tomorrow and treat for 7 days. 4. Monitor the clinical status. Domingo Mclaughlin MD May 10, 2018 14:17
[2018-05-10] MEDS: SODIUM CHLOR 0.9% 1000 ML INJ 1,000 ML IV SCH (16:16)
--- NOTE | 2018-05-10 18:10 | ECHRPT ---
Indication: SHORTNESS OF BREATH CONCLUSIONS The left ventricular systolic function is normal with an estimated ejection fraction in the range of 55-60%. Normal left ventricular size. Mild concentric left ventricular hypertrophy. No regional wall motion abnormalities are present. Moderate thickening of the mitral valve leaflets. Mild mitral valve regurgitation. Mild mitral valve stenosis. Mild aortic valve regurgitation. There is moderate tricuspid valve regurgitation. The estimated pulmonary arterial pressure is 50 mmHg. BP: 147 / 65 HR: 99 Rhythm: Sinus Technical Quality:Good FINDINGS LEFT VENTRICLE The left ventricular systolic function is normal with an estimated ejection fraction in the range of 55-60%. Normal left ventricular size. Mild concentric left ventricular hypertrophy. No regional wall motion abnormalities are present. RIGHT VENTRICLE Normal right ventricular size and systolic function. LEFT ATRIUM The left atrial size is normal. RIGHT ATRIUM The right atrial size is normal. ATRIAL SEPTUM Normal atrial septal thickness without atrial level shunting by limited color doppler interrogation. AORTA The aortic root and proximal ascending aorta are normal in size on limited imaging. MITRAL VALVE Moderate thickening of the mitral valve leaflets. Mild mitral valve regurgitation. Mild mitral valve stenosis. Mitral valve mean gradient is 6 mmHg. AORTIC VALVE Trileaflet aortic valve. Mild aortic valve regurgitation. TRICUSPID VALVE Structurally normal tricuspid valve. There is moderate tricuspid valve regurgitation. The estimated pulmonary arterial pressure is 50 mmHg. PULMONARY VALVE Trivial pulmonary valve regurgitation. VESSELS The inferior vena cava is normal in size. PERICARDIUM No pericardial effusion. Aydin Montes MD, FACC (Electronically Signed) Final Date:10 May 2018 18:04
[2018-05-11 00:05] VITALS: BP 101/66; PULSE 89; RESP 18; TEMP 98.4; O2SAT 94
[2018-05-11 04:35] VITALS: BP 117/62; PULSE 87; RESP 18; TEMP 98.2; O2SAT 92
[2018-05-11] MEDS: PIPERACIL-TAZO 2.25 GM PREMIX 50 ML IV SCH (04:52)
[2018-05-11] MEDS: LEVOTHYROXINE SODIUM 112 MCG TAB PO SCH (05:07)
[2018-05-11] MEDS: LEVOTHYROXINE SODIUM 25 MCG TAB PO SCH (05:07)
[2018-05-11 08:00] VITALS: BP 151/67; PULSE 90; RESP 18; TEMP 98; O2SAT 94
[2018-05-11 08:39] LABS: AUTOMATED NEUTROPHIL # 6.7 TH/MM3 (1.8-7.7); BASOPHIL # 0.4 TH/MM3 (0-0.2); BASOPHIL % 2.9 % (0.0-2.0); EOSINOPHIL # 0.1 TH/MM3 (0-0.4); EOSINOPHIL % 0.9 % (0.0-4.0); HEMATOCRIT 22.5 % (35.0-46.0); HEMOGLOBIN 7.5 GM/DL (11.6-15.3); LYMPH % 38.2 % (9.0-44.0); LYMPHOCYTE # 5.3 TH/MM3 (1.0-4.8); MEAN CELL VOLUME 98.1 FL (80.0-100.0); MEAN CORPUSCULAR HEMOGLOBIN 32.6 PG (27.0-34.0); MEAN CORPUSCULAR HGB CONC 33.2 % (32.0-36.0); MEAN PLATELET VOLUME 11.7 FL (7.0-11.0); MONO % 9.6 % (0.0-8.0); MONOCYTE # 1.3 TH/MM3 (0-0.9); NEUT % 48.4 % (16.0-70.0); PLATELET COUNT 279 TH/MM3 (150-450); RED BLOOD COUNT 2.29 MIL/MM3 (4.00-5.30); RED CELL DISTRIBUTION WIDTH 14.5 % (11.6-17.2); WHITE BLOOD COUNT 13.9 TH/MM3 (4.0-11.0)
[2018-05-11 08:45] LABS: ALBUMIN 1.8 GM/DL (3.4-5.0); AST (GOT) 18 U/L (15-37); BICARBONATE 27.1 MEQ/L (21.0-32.0); BLOOD UREA NITROGEN 15 MG/DL (7-18); CALCIUM 8.6 MG/DL (8.5-10.1); CHLORIDE 107 MEQ/L (98-107); CREATININE 1.94 MG/DL (0.50-1.00); GLOMERULAR FILTRATION RATE 32 ML/MIN (>89); GLUCOSE,RANDOM 74 MG/DL (74-106); MAGNESIUM 1.6 MG/DL (1.5-2.5); SODIUM (NA) 142 MEQ/L (136-145)
[2018-05-11 08:46] LABS: ALT (GPT) 11 U/L (10-53); PHOSPHORUS 4.8 MG/DL (2.5-4.9)
[2018-05-11 08:48] LABS: ALKALINE PHOSPHATASE 75 U/L (45-117); TOTAL BILIRUBIN ADULT 0.2 MG/DL (0.2-1.0)
[2018-05-11] MEDS: SODIUM CHLORIDE 0.9% FLUSH 10 ML FLUSH IV FLUSH SCH (09:00)
[2018-05-11] MEDS: ASPIRIN EC 81 MG TABEC PO SCH ×2 (09:00→11:27)
--- NOTE | 2018-05-11 11:23 | HHI.IDPN ---
Note Infectious Disease Note Patient continues to feel tired and sleepy. She reports pain in her right great toe. White blood cell count is elevated but decreased. Afebrile. Blood cultures negative 3 days. No shortness of breath. PAST MEDICAL HISTORY: Hodgkin's lymphoma in remission, gout, chronic anemia, chronic kidney disease, hypertension, history of splenectomy, history of cholecystectomy, history of thyroidectomy, history of bilateral knee replacements. ALLERGIES: DOXYCYCLINE, SULFAMETHOXAZOLE, TRIMETHOPRIM. Antibiotics: Piperacillin/tazobactam. Objective: Vital Signs Date Time Temp Pulse Resp B/P (MAP) Pulse Ox O2 Delivery O2 Flow Rate FiO2 05/11/18 08:00 98.0 90 18 151/67 (95) 94 05/11/18 04:35 98.2 87 18 117/62 (80) 92 05/11/18 00:05 98.4 89 18 101/66 (78) 94 05/10/18 21:51 99.0 91 18 121/62 (81) 95 05/10/18 20:30 Room Air 21 05/10/18 18:47 05/10/18 16:00 99.1 90 20 162/70 (100) 91 05/10/18 15:28 88 05/10/18 14:53 05/10/18 14:14 Room Air 05/10/18 12:00 98.5 90 20 143/65 (91) 91 Laboratory Tests Test 05/10/18 08:11 05/11/18 07:40 White Blood Count 18.5 TH/MM3 13.9 TH/MM3 Red Blood Count 2.40 MIL/MM3 2.29 MIL/MM3 Hemoglobin 7.7 GM/DL 7.5 GM/DL Hematocrit 23.6 % 22.5 % Mean Corpuscular Volume 98.3 FL 98.1 FL Mean Corpuscular Hemoglobin 32.0 PG 32.6 PG Mean Corpuscular Hemoglobin Concent 32.6 % 33.2 % Red Cell Distribution Width 14.5 % 14.5 % Platelet Count 266 TH/MM3 279 TH/MM3 Mean Platelet Volume 11.6 FL 11.7 FL CBC Comment AUTO DIFF AUTO DIFF Differential Total Cells Counted 100 Neutrophils % (Manual) 58 % Band Neutrophils % 4 % Lymphocytes % 31 % Monocytes % 6 % Basophils % 1 % Neutrophils # (Manual) 11.5 TH/MM3 Differential Comment FINAL DIFF MANUAL Platelet Estimate NORMAL Platelet Morphology Comment ENLARGED Target Cells 1+ Neutrophils (%) (Auto) 48.4 % Lymphocytes (%) (Auto) 38.2 % Monocytes (%) (Auto) 9.6 % Eosinophils (%) (Auto) 0.9 % Basophils (%) (Auto) 2.9 % Neutrophils # (Auto) 6.7 TH/MM3 Lymphocytes # (Auto) 5.3 TH/MM3 Monocytes # (Auto) 1.3 TH/MM3 Eosinophils # (Auto) 0.1 TH/MM3 Basophils # (Auto) 0.4 TH/MM3 Laboratory Tests Test 05/10/18 08:11 05/11/18 07:40 Blood Urea Nitrogen 15 MG/DL 15 MG/DL Creatinine 1.85 MG/DL 1.94 MG/DL Random Glucose 75 MG/DL 74 MG/DL Total Protein 8.2 GM/DL 8.0 GM/DL Albumin 1.9 GM/DL 1.8 GM/DL Calcium Level 8.7 MG/DL 8.6 MG/DL Phosphorus Level 3.9 MG/DL 4.8 MG/DL Magnesium Level 1.7 MG/DL 1.6 MG/DL Alkaline Phosphatase 80 U/L 75 U/L Aspartate Amino Transf (AST/SGOT) 18 U/L 18 U/L Alanine Aminotransferase (ALT/SGPT) 12 U/L 11 U/L Total Bilirubin 0.2 MG/DL 0.2 MG/DL Sodium Level 142 MEQ/L 142 MEQ/L Potassium Level 4.6 MEQ/L 4.5 MEQ/L Chloride Level 106 MEQ/L 107 MEQ/L Carbon Dioxide Level 27.7 MEQ/L 27.1 MEQ/L Anion Gap 8 MEQ/L 8 MEQ/L Estimat Glomerular Filtration Rate 33 ML/MIN 32 ML/MIN Microbiology Date/Time Source Procedure Growth Status 05/04/18 18:35 Blood Peripheral Aerobic Blood Culture - Preliminary NO GROWTH IN 2 DAYS Resulted 05/04/18 18:35 Blood Peripheral Anaerobic Blood Culture - Preliminary NO GROWTH IN 2 DAYS Resulted 05/04/18 18:30 Blood Peripheral Aerobic Blood Culture - Preliminary NO GROWTH IN 2 DAYS Resulted 05/04/18 18:30 Anaerobic Blood Culture - Preliminary Escherichia Coli Resulted 05/04/18 18:35 Urine Clean Catch Urine Culture - Final Escherichia Coli Complete Imaging: Myocardial Perfusion Scan Nuc Med 05/09/18 0000 Signed Impressions: CONCLUSION: 1. No evidence of stress-induced ischemia. 2. Intact wall motion with 63% ejection fraction. Renal Ultrasound 05/06/18 Signed Impressions: CONCLUSION: 1. Echogenic kidneys characteristic of medical renal disease. Small right gonzales l cyst and nonobstructing left renal calcification. Chest X-Ray 05/04/18 1602 Signed Impressions: CONCLUSION: No acute disease. Lung Scan-VQ Nuclear Medicine 05/04/18 Signed Impressions: CONCLUSION: 1. Negative for pulmonary embolus. Chest CT 05/04/18 Signed Impressions: CONCLUSION: 1. Trace left pleural effusion. Dependent atelectasis in both lungs. Groundgla ss opacity most characteristic of a mild edema pattern associated with some mil d air trapping. Sign PHYSICAL EXAMINATION: GENERAL: Patient is somnolent but arouses easily. HEENT: Extraocular movements grossly intact. Pupils reactive to light. No icterus. Oropharynx Moist mucosa. No lesions. NECK: Supple without adenopathy. LUNGS: Clear breath sounds. HEART: Regular S1 and S2. Slight systolic murmur at the left sternal border. ABDOMEN: Bowel sounds present, obese, soft, nontender. EXTREMITIES: No clubbing, cyanosis. Edema at the right ankle. mild tenderness at the r. great toe. SKIN: No rash. NEUROLOGIC: No gross focal findings. PSYCHIATRIC: Calm and cooperative. IMPRESSION: 1. E. coli sepsis, urinary source. 2. Urinary tract infection due E. coli. 3. Generalized malaise secondary to infection versus other cause. She has chronic renal disease. 4. Leukocytosis may be secondary to infection. WBC is lower today. 5. Pain in the right great toe. She reports history of gout. Stable. Improved. RECOMMENDATIONS: WBC is better therefore I will cancel the hematology consult. Okay to discharge with Cefobid 250mg bid x [address] Barakat. Domingo Mclaughlin MD May 11, 2018 11:23
[2018-05-11] MEDS: ATENOLOL 50 MG TAB PO SCH (11:27)
[2018-05-11] MEDS: CALCITRIOL 0.25 MCG CAP PO SCH (11:27)
[2018-05-11] MEDS: ALLOPURINOL 100 MG TAB PO SCH (11:27)
[2018-05-11] MEDS: PANTOPRAZOLE SOD 20 MG DELAYED RELEASE TAB PO SCH (11:27)
[2018-05-11] MEDS: HEPARIN SODIUM - SQ 10,000 UNITS/ML VIAL SQ SCH (11:28)
[2018-05-11] MEDS: PREGABALIN 75 MG CAP PO SCH (11:28)
--- NOTE | 2018-05-11 11:41 | HHI.PR ---
Subjective Remarks This is a 62-year-old female with a PMH of HTN, Hodgkin's Disease in Remission, Gout, Chronic Anemia and CKD who presented to the ER w/ c/o generalized weakness , SOB and CP x3 days. States she had a gout flare and started Medrol Dosepak last Monday (6 days ago), few days after states she started feeling weak/ tired and short of breath so she stopped the steroids. Denies fever, chills or cough. No sick contacts. On arrival, BP 136/61, HR 107, O2 sat 93% on 2L NC, Afebrile. WBC 28.4. Hemoglobin 9.5, previously 8.2 on 10/12/2017. Bands 17%. Creatinine 3.03, previously 2.18 on 10/12/2017. INR 1.2. Trop 0.09. UA pending. CXR with no acute findings. S/p Vanc/Zosyn in ER. 6-16 awake and alert, no chest pain or discomfort no flank pain but states recently with terminal dysuria- "stinging at end of urination" denies history of recurrent UT no cough baseline up and ambulates with a 3 wheeled walker lab called- + gram negative rods in blood 6-17 awake and alert, afebrile feeling better, no flank pain or urinary symptoms no chest pain 6-18 afebrile, feeling better , good po no nausea or vomiting, voiding spontaneously 6-19 feeling a little better today will need lexiscan prior to dc WILL ORDER IT am labs dw RN AND PT AND CM 6-20 PATIENT IS ANXIOUS WANTS MEDICATIONS TO HAVE LEXISCAN DUE TO claustrophobia DW RN AND PT AND CM 6- LEXISCAN WAS GOOD NO ISCHEMIA EF 63% NOT CLEARED BY ID WANTS ONCOLOGY EVALUATION DUE TO LEUKOCYTOSIS AM LABS MONITOR IN HOSPITAL DW RN AND PT AND FAMILY AND ID 05-11 HAS BEEN CLEARED BY ID NO NEED FOR ONCOLOGY WILL CANCEL WILL DC ON CEFOBID 250MG PO BID FOR 7 DAYS DW ID AND RN AND PT Objective Vitals Vital Signs Date Time Temp Pulse Resp B/P (MAP) Pulse Ox O2 Delivery O2 Flow Rate FiO2 05/11/18 08:00 98.0 90 18 151/67 (95) 94 05/11/18 04:35 98.2 87 18 117/62 (80) 92 05/11/18 00:05 98.4 89 18 101/66 (78) 94 05/10/18 21:51 99.0 91 18 121/62 (81) 95 05/10/18 20:30 Room Air 21 05/10/18 18:47 05/10/18 16:00 99.1 90 20 162/70 (100) 91 05/10/18 15:28 88 05/10/18 14:53 05/10/18 14:14 Room Air 05/10/18 12:00 98.5 90 20 143/65 (91) 91 I/O 05/10/18 05/10/18 05/10/18 05/11/18 05/11/18 05/11/18 07:00 15:00 23:00 07:00 15:00 23:00 Intake Total 240 ml 780 ml 570 ml Balance 240 ml 780 ml 570 ml Intake Oral 240 ml 480 ml 570 ml IV Total 300 ml # Voids 3 2 4 # Bowel Movements 0 1 0 Result Diagram: 05/11/18 0740 05/11/18 0740 Other Results Laboratory Tests Test 05/09/18 07:20 05/09/18 07:29 05/10/18 08:11 05/11/18 07:40 Blood Urea Nitrogen 17 MG/DL 15 MG/DL 15 MG/DL Creatinine 2.07 MG/DL 1.85 MG/DL 1.94 MG/DL Random Glucose 68 MG/DL 75 MG/DL 74 MG/DL Total Protein 8.6 GM/DL 8.2 GM/DL 8.0 GM/DL Albumin 2.1 GM/DL 1.9 GM/DL 1.8 GM/DL Calcium Level 9.0 MG/DL 8.7 MG/DL 8.6 MG/DL Phosphorus Level 3.1 MG/DL 3.9 MG/DL 4.8 MG/DL Magnesium Level 1.7 MG/DL 1.7 MG/DL 1.6 MG/DL Alkaline Phosphatase 93 U/L 80 U/L 75 U/L Aspartate Amino Transf (AST/SGOT) 17 U/L 18 U/L 18 U/L Alanine Aminotransferase (ALT/SGPT) 13 U/L 12 U/L 11 U/L Total Bilirubin 0.3 MG/DL 0.2 MG/DL 0.2 MG/DL Sodium Level 142 MEQ/L 142 MEQ/L 142 MEQ/L Potassium Level 4.4 MEQ/L 4.6 MEQ/L 4.5 MEQ/L Chloride Level 107 MEQ/L 106 MEQ/L 107 MEQ/L Carbon Dioxide Level 25.3 MEQ/L 27.7 MEQ/L 27.1 MEQ/L Anion Gap 10 MEQ/L 8 MEQ/L 8 MEQ/L Estimat Glomerular Filtration Rate 29 ML/MIN 33 ML/MIN 32 ML/MIN Hemoglobin A1c 6.2 % Free Thyroxine 1.52 NG/DL Thyroid Stimulating Hormone 3rd Gen 6.760 uIU/ML White Blood Count 23.6 TH/MM3 18.5 TH/MM3 13.9 TH/MM3 Red Blood Count 2.55 MIL/MM3 2.40 MIL/MM3 2.29 MIL/MM3 Hemoglobin 8.1 GM/DL 7.7 GM/DL 7.5 GM/DL Hematocrit 25.3 % 23.6 % 22.5 % Mean Corpuscular Volume 99.3 FL 98.3 FL 98.1 FL Mean Corpuscular Hemoglobin 31.7 PG 32.0 PG 32.6 PG Mean Corpuscular Hemoglobin Concent 31.9 % 32.6 % 33.2 % Red Cell Distribution Width 14.7 % 14.5 % 14.5 % Platelet Count 284 TH/MM3 266 TH/MM3 279 TH/MM3 Mean Platelet Volume 11.8 FL 11.6 FL 11.7 FL Neutrophils (%) (Auto) 64.9 % 48.4 % Lymphocytes (%) (Auto) 26.8 % 38.2 % Monocytes (%) (Auto) 6.2 % 9.6 % Eosinophils (%) (Auto) 0.9 % 0.9 % Basophils (%) (Auto) 1.2 % 2.9 % Neutrophils # (Auto) 15.3 TH/MM3 6.7 TH/MM3 Lymphocytes # (Auto) 6.3 TH/MM3 5.3 TH/MM3 Monocytes # (Auto) 1.5 TH/MM3 1.3 TH/MM3 Eosinophils # (Auto) 0.2 TH/MM3 0.1 TH/MM3 Basophils # (Auto) 0.3 TH/MM3 0.4 TH/MM3 CBC Comment AUTO DIFF AUTO DIFF AUTO DIFF Differential Total Cells Counted 100 100 Neutrophils % (Manual) 43 % 58 % Band Neutrophils % 7 % 4 % Lymphocytes % 42 % 31 % Monocytes % 5 % 6 % Eosinophils % 1 % Basophils % 2 % 1 % Neutrophils # (Manual) 11.8 TH/MM3 11.5 TH/MM3 Differential Comment FINAL DIFF MANUAL FINAL DIFF MANUAL Platelet Estimate NORMAL NORMAL Platelet Morphology Comment NORMAL ENLARGED Target Cells 1+ 1+ Keratocytes 2+ Imaging Last Impressions Myocardial Perfusion Scan Nuc Med 05/09/18 0000 Signed Impressions: CONCLUSION: 1. No evidence of stress-induced ischemia. 2. Intact wall motion with 63% ejection fraction. Renal Ultrasound 05/06/18 0000 Signed Impressions: CONCLUSION: 1. Echogenic kidneys characteristic of medical renal disease. Small right gonzales l cyst and nonobstructing left renal calcification. Chest X-Ray 05/04/18 1602 Signed Impressions: CONCLUSION: No acute disease. Lung Scan-VQ Nuclear Medicine 05/04/18 0000 Signed Impressions: CONCLUSION: 1. Negative for pulmonary embolus. Chest CT 05/04/18 0000 Signed Impressions: CONCLUSION: 1. Trace left pleural effusion. Dependent atelectasis in both lungs. Groundgla ss opacity most characteristic of a mild edema pattern associated with some mil d air trapping. Sign Objective Remarks GENERAL: Awake alert and oriented 3 talkative cooperative S1-S2 no S3 or S4 SKIN: Warm and dry. HEAD: Atraumatic. Normocephalic. EYES: Pupils equal and round. No scleral icterus. No injection or drainage. ENT: No nasal bleeding or discharge. Mucous membranes pink and moist. NECK: Trachea midline. No JVD. CARDIOVASCULAR: Regular rate and rhythm. RESPIRATORY: No accessory muscle use. Clear to auscultation. Breath sounds equal bilaterally. GASTROINTESTINAL: Abdomen soft, non-tender, nondistended. Hepatic and splenic margins not palpable. MUSCULOSKELETAL: Extremities without clubbing, cyanosis, or edema. No obvious deformities. NEUROLOGICAL: Awake and alert. No obvious cranial nerve deficits. Motor grossly within normal limits. 4 out of 5 muscle strength in the arms and legs. Normal speech. PSYCHIATRIC: Appropriate mood and affect; insight and judgment normal. Medications and IVs Current Medications Aspirin (Aspirin Chew) 243 mg ONCE ONCE PO Last administered on 05/04/18at 16: 39; Start 05/04/18 at 16:15; Stop 05/04/18 at 16:16; Status DC Sodium Chloride (NS Flush) 2 ml UNSCH PRN IVF FLUSH AFTER USING IV ACCESS Last administered on 05/04/18at 16:39; Start 05/04/18 at 16:15; Stop 05/04/18 at 19:35 ; Status DC Vancomycin HCl 1000 mg/Sodium Chloride 250 ml @ 250 mls/hr ONCE ONCE IV Last administered on 05/04/18at 18:44; Start 05/04/18 at 18:30; Stop 05/04/18 at 19:29 ; Status DC Piperacillin Sod/ Tazobactam Sod 50 ml @ 100 mls/hr ONCE ONCE IV Last administered on 05/04/18at 19:41; Start 05/04/18 at 18:30; Stop 05/04/18 at 19:03 ; Status DC Sodium Chloride (NS Flush) 2 ml UNSCH PRN IV FLUSH FLUSH AFTER USING IV ACCESS ; Start 05/04/18 at 18:45 Sodium Chloride (NS Flush) 2 ml BID IV FLUSH Last administered on 05/11/18at 09: 00; Start 05/04/18 at 21:00 Acetaminophen (Tylenol) 650 mg Q4H PRN PO TEMP > 100.4; Start 05/04/18 at 18:45 Metoclopramide HCl (Reglan Inj) 5 mg Q6H PRN IV PUSH NAUSEA OR VOMITING; Start 05/04/18 at 18:45 Acetaminophen (Tylenol) 650 mg Q6H PRN PO PAIN SCALE 1 TO 2; Start 05/04/18 at 18:45; Stop 05/05/18 at 01:20; Status DC Naloxone HCl (Narcan Inj) 0.4 mg UNSCH PRN IV PUSH SEE LABEL COMMENTS; Start at 18:45 Magnesium Hydroxide (Milk Of Magnesia Liq) 30 ml Q12H PRN PO Mild constipation ; Start 05/04/18 at 18:45 Piperacillin Sod/ Tazobactam Sod 50 ml @ 100 mls/hr Q8H IV ; Start 05/05/18 at 03:00; Stop 05/05/18 at 03:00; Status DC Albuterol/ Ipratropium (Duoneb Neb) 1 ampule Q2HR NEB PRN NEB SOB/WHEEZING; Start 05/04/18 at 18:45 Hydralazine HCl (Apresoline) 25 mg Q8H PRN PO SBP>160, DBP>90 Last administered on 05/10/18at 11:37; Start 05/04/18 at 18:45 Lorazepam (Ativan Inj) 1 mg ONCE ONCE IV PUSH Last administered on 05/04/18at 18:56; Start 05/04/18 at 19:00; Stop 05/04/18 at 19:03; Status DC Piperacillin Sod/ Tazobactam Sod 50 ml @ 100 mls/hr Q6H IV Last administered on 05/05/18at 15:29; Start 05/05/18 at 01:00; Stop 05/05/18 at 16:48; Status DC Aspirin (Ecotrin Ec) 81 mg DAILY PO Last administered on 05/10/18at 11:37; Start 05/05/18 at 09:00 Albuterol/ Ipratropium (Duoneb Neb) 1 ampule Q4HR NEB PRN NEB SOB/WHEEZING; Start 05/04/18 at 19:00 Pharmacy Profile Note 0 ml @ 0 mls/hr UNSCH OTHER ; Start 05/04/18 at 19:00; Stop 05/06/18 at 13:43; Status DC Atenolol (Tenormin) 50 mg DAILY PO Last administered on 05/11/18at 11:27; Start 05/05/18 at 09:00 Calcitriol (Rocaltrol) 0.25 mcg DAILY PO Last administered on 05/11/18at 11:27; Start 05/05/18 at 09:00 Pregabalin (Lyrica) 75 mg BID PO Last administered on 05/11/18at 11:28; Start at 21:00 Zolpidem Tartrate (Ambien) 10 mg HS PRN PO INSOMNIA Last administered on at 21:38; Start 05/04/18 at 19:00 Levothyroxine Sodium (Synthroid) 25 mcg DAILY@0600 PO Last administered on 05/11at 05:07; Start 05/05/18 at 06:00 Pantoprazole Sodium (Protonix) 20 mg DAILY PO Last administered on 05/11/18at 11 :27; Start 05/05/18 at 09:00 Levothyroxine Sodium (Synthroid) 112 mcg DAILY@0600 PO Last administered on at 05:07; Start 05/05/18 at 06:00 Vancomycin HCl 1000 mg/Sodium Chloride 250 ml @ 250 mls/hr ONCE ONCE IV Last administered on 05/04/18at 20:19; Start 05/04/18 at 20:00; Stop 05/04/18 at 20:59 ; Status DC Sodium Chloride 1,000 ml @ 60 mls/hr [id number] IV Last administered on at 21:05; Start 05/04/18 at 19:15 Heparin Sodium (Porcine) (Heparin Inj) 5,000 units Q12HR SQ Last administered on 05/11/18at 11:28; Start 05/04/18 at 21:00 Acetaminophen/ Hydrocodone Bitart (Mccaskill 7.5-325 Mg) 1 tab BID PRN PO PAIN Last administered on 05/10/18at 13:16; Start 05/05/18 at 01:15 Piperacillin Sod/ Tazobactam Sod 50 ml @ 100 mls/hr Q6H IV Last administered on 05/11/18at 04:52; Start 05/05/18 at 22:00 Lorazepam (Ativan) 2 mg ONCE ONCE PO Last administered on 05/09/18at 13:01; Start 05/09/18 at 12:00; Stop 05/09/18 at 12:20; Status DC Allopurinol (Zyloprim) 100 mg DAILY PO Last administered on 05/11/18at 11:27; Start 05/10/18 at 07:00 Regadenoson (Lexiscan Inj) 0.4 mg STK-MED ONCE .ROUTE Last administered on 05/10at 09:16; Start 05/10/18 at 09:16; Stop 05/10/18 at 09:17; Status DC A/P Problem List: (1) SIRS (systemic inflammatory response syndrome) ICD Code: R65.10 - Systemic inflammatory response syndrome (SIRS) of non- infectious origin without acute organ dysfunction Status: Acute (2) Elevated troponin ICD Code: R74.8 - Abnormal levels of other serum enzymes Status: Acute (3) BRANDT (acute kidney injury) ICD Code: N17.9 - Acute kidney failure, unspecified Assessment and Plan 62 years old E coli sepsis secondary to UTI - SWITCHED TO CEFOBID 250MG PO BID FOR 7 DAYS - ID ff - get US of the kidneys- no hydronephrosis, finding suggestive of chronic medical disease - repeat blood cultures in 48 hours to ensure clearance NSTEMI - elevated troponin- from demand- no complains of chest pain - seen by Cardiology- no chest pain] - lexiscan prior to DC --WAS STABLE NO ISCHEMIA EF 63% Chronic Leukocytosis history of Lymphoproliferative disorder History of NHL - ff CBC with sepsis- WBC trending down - consider Hematology consult if no improvement- ID CANCELLED HEMATOLOGY CONSULT Chronic anemia -Irons studies suggestive of chronic disease Acute on top of Chronic kidney disease- creatinine trending down - get bilateral renal US- chronic medical disease- no hydronephrosis - continue IVF- decrease rate 60 cc/hr - states at one time was ff by Nephrology - Dr. Salmon as OP Increase activity- out of bed to chair PT daily Anxiety and claustrophobia will get medications prior to the Lexiscan- TOLERATED WELL Discharge Planning CLEARED BY ID DC TO HOME Marshall Barakat DO May 11, 2018 11:41
[2018-05-11] MEDS ORDERED: AMLO10TA2 PO (11:46)
[2018-05-11] MEDS ORDERED: OMEP20TA93 PO (11:46)
[2018-05-11] MEDS ORDERED: ALLO100T PO (11:46)
[2018-05-11] MEDS ORDERED: LYRI75CA PO (11:46)
[2018-05-11] MEDS ORDERED: CALC0.25 PO (11:46)
[2018-05-11] MEDS ORDERED: LEVO137T2 PO (11:46)
[2018-05-11] MEDS ORDERED: ATEN50TA PO (11:46)
[2018-05-11] MEDS ORDERED: VITA1000 PO (11:46)
[2018-05-11] MEDS ORDERED: ECASA81 PO (11:46)
[2018-05-11] MEDS ORDERED: Albuterol-Ipratropium Neb NEB (11:46)
[2018-05-11] MEDS ORDERED: CEFU1TAB18 PO (11:51)
[2018-05-11] MEDS ORDERED: NEBULIZER1 MI1 (11:52)
--- NOTE | 2018-05-11 11:54 | HHI.DS ---
Discharge Summary Admission Date May 04, 2018 at 18:33 Discharge Date: May 11, 2018 Admitting Diagnosis SIRS; unknown source; dyspnea/chest pain; elevated trop (1) SIRS (systemic inflammatory response syndrome) ICD Code: R65.10 - Systemic inflammatory response syndrome (SIRS) of non- infectious origin without acute organ dysfunction Diagnosis: Principal Status: Acute (2) Elevated troponin ICD Code: R74.8 - Abnormal levels of other serum enzymes Diagnosis: Secondary Status: Acute (3) BRANDT (acute kidney injury) ICD Code: N17.9 - Acute kidney failure, unspecified Diagnosis: Secondary Procedures stress test Brief History - From Admission This is a 62-year-old female with a PMH of HTN, Hodgkin's Disease in Remission, Gout, Chronic Anemia and CKD who presented to the ER w/ c/o generalized weakness , SOB and CP x3 days. States she had a gout flare and started Medrol Dosepak last Monday (6 days ago), few days after states she started feeling weak/ tired and short of breath so she stopped the steroids. Denies fever, chills or cough. No sick contacts. On arrival, BP 136/61, HR 107, O2 sat 93% on 2L NC, Afebrile. WBC 28.4. Hemoglobin 9.5, previously 8.2 on 10/12/2017. Bands 17%. Creatinine 3.03, previously 2.18 on 10/12/2017. INR 1.2. Trop 0.09. UA pending. CXR with no acute findings. S/p Vanc/Zosyn in ER. CBC/BMP: 05/11/18 0740 05/11/18 0740 Significant Findings Laboratory Tests Test 05/09/18 07:20 05/09/18 07:29 05/10/18 08:11 05/11/18 07:40 Creatinine 2.07 MG/DL (0.50-1.00) 1.85 MG/DL (0.50-1.00) 1.94 MG/DL (0.50-1.00) Random Glucose 68 MG/DL (74-106) Total Protein 8.6 GM/DL (6.4-8.2) Albumin 2.1 GM/DL (3.4-5.0) 1.9 GM/DL (3.4-5.0) 1.8 GM/DL (3.4-5.0) Estimat Glomerular Filtration Rate 29 ML/MIN (>89) 33 ML/MIN (>89) 32 ML/MIN (>89) Hemoglobin A1c 6.2 % (4.3-6.0) Free Thyroxine 1.52 NG/DL (0.76-1.46) Thyroid Stimulating Hormone 3rd Gen 6.760 uIU/ML (0.358-3.740) White Blood Count 23.6 TH/MM3 (4.0-11.0) 18.5 TH/MM3 (4.0-11.0) 13.9 TH/MM3 (4.0-11.0) Red Blood Count 2.55 MIL/MM3 (4.00-5.30) 2.40 MIL/MM3 (4.00-5.30) 2.29 MIL/MM3 (4.00-5.30) Hemoglobin 8.1 GM/DL (11.6-15.3) 7.7 GM/DL (11.6-15.3) 7.5 GM/DL (11.6-15.3) Hematocrit 25.3 % (35.0-46.0) 23.6 % (35.0-46.0) 22.5 % (35.0-46.0) Mean Corpuscular Hemoglobin Concent 31.9 % (32.0-36.0) Mean Platelet Volume 11.8 FL (7.0-11.0) 11.6 FL (7.0-11.0) 11.7 FL (7.0-11.0) Neutrophils # (Auto) 15.3 TH/MM3 (1.8-7.7) Lymphocytes # (Auto) 6.3 TH/MM3 (1.0-4.8) 5.3 TH/MM3 (1.0-4.8) Monocytes # (Auto) 1.5 TH/MM3 (0-0.9) 1.3 TH/MM3 (0-0.9) Basophils # (Auto) 0.3 TH/MM3 (0-0.2) 0.4 TH/MM3 (0-0.2) Band Neutrophils % 7 % (0-6) Neutrophils # (Manual) 11.8 TH/MM3 (1.8-7.7) 11.5 TH/MM3 (1.8-7.7) Target Cells 1+ (NORMAL) 1+ (NORMAL) Keratocytes 2+ (NORMAL) Platelet Morphology Comment ENLARGED (NORMAL) Monocytes (%) (Auto) 9.6 % (0.0-8.0) Basophils (%) (Auto) 2.9 % (0.0-2.0) Imaging Last Impressions Myocardial Perfusion Scan Nuc Med 05/09/18 Signed Impressions: CONCLUSION: 1. No evidence of stress-induced ischemia. 2. Intact wall motion with 63% ejection fraction. Renal Ultrasound 05/06/18 Signed Impressions: CONCLUSION: 1. Echogenic kidneys characteristic of medical renal disease. Small right gonzales l cyst and nonobstructing left renal calcification. Chest X-Ray 05/04/18 1602 Signed Impressions: CONCLUSION: No acute disease. Lung Scan-VQ Nuclear Medicine 05/04/18 Signed Impressions: CONCLUSION: 1. Negative for pulmonary embolus. Chest CT 05/04/18 Signed Impressions: CONCLUSION: 1. Trace left pleural effusion. Dependent atelectasis in both lungs. Groundgla ss opacity most characteristic of a mild edema pattern associated with some mil d air trapping. Sign PE at Discharge GENERAL: Awake alert and oriented 3 talkative cooperative S1-S2 no S3 or S4 SKIN: Warm and dry. HEAD: Atraumatic. Normocephalic. EYES: Pupils equal and round. No scleral icterus. No injection or drainage. ENT: No nasal bleeding or discharge. Mucous membranes pink and moist. NECK: Trachea midline. No JVD. CARDIOVASCULAR: Regular rate and rhythm. RESPIRATORY: No accessory muscle use. Clear to auscultation. Breath sounds equal bilaterally. GASTROINTESTINAL: Abdomen soft, non-tender, nondistended. Hepatic and splenic margins not palpable. MUSCULOSKELETAL: Extremities without clubbing, cyanosis, or edema. No obvious deformities. NEUROLOGICAL: Awake and alert. No obvious cranial nerve deficits. Motor grossly within normal limits. 4 out of 5 muscle strength in the arms and legs. Normal speech. PSYCHIATRIC: Appropriate mood and affect; insight and judgment normal. Hospital Course This is a 62-year-old female with a PMH of HTN, Hodgkin's Disease in Remission, Gout, Chronic Anemia and CKD who presented to the ER w/ c/o generalized weakness , SOB and CP x3 days. States she had a gout flare and started Medrol Dosepak last Monday (6 days ago), few days after states she started feeling weak/ tired and short of breath so she stopped the steroids. Denies fever, chills or cough. No sick contacts. On arrival, BP 136/61, HR 107, O2 sat 93% on 2L NC, Afebrile. WBC 28.4. Hemoglobin 9.5, previously 8.2 on 10/12/2017. Bands 17%. Creatinine 3.03, previously 2.18 on 10/12/2017. INR 1.2. Trop 0.09. UA pending. CXR with no acute findings. S/p Vanc/Zosyn in ER. 6-16 awake and alert, no chest pain or discomfort no flank pain but states recently with terminal dysuria- "stinging at end of urination" denies history of recurrent UT no cough baseline up and ambulates with a 3 wheeled walker lab called- + gram negative rods in blood 6-17 awake and alert, afebrile feeling better, no flank pain or urinary symptoms no chest pain 6-18 afebrile, feeling better , good po no nausea or vomiting, voiding spontaneously 6-19 feeling a little better today will need lexiscan prior to dc WILL ORDER IT am labs dw RN AND PT AND CM 6-20 PATIENT IS ANXIOUS WANTS MEDICATIONS TO HAVE LEXISCAN DUE TO claustrophobia DW RN AND PT AND CM 6- LEXISCAN WAS GOOD NO ISCHEMIA EF 63% NOT CLEARED BY ID WANTS ONCOLOGY EVALUATION DUE TO LEUKOCYTOSIS AM LABS MONITOR IN HOSPITAL DW RN AND PT AND FAMILY AND ID 6 HAS BEEN CLEARED BY ID NO NEED FOR ONCOLOGY WILL CANCEL WILL DC ON CEFTIN 250MG PO BID FOR 7 DAYS DW ID AND RN AND PT Pt Condition on Discharge: Good Discharge Disposition: Discharge Home Discharge Time: > 30 minutes Discharge Instructions DIET: Follow Instructions for: Heart Healthy Diet Speech Therapy-Diet Recommends: Regular Activities you can perform: Regular-No Restrictions Follow up Referrals: Oncology/Hematology - 2 Weeks with Chika Thomson MD PCP Follow-up - 3-5 Days New Medications: Cefuroxime (Ceftin) 250 Mg Tab 250 MG PO BID for Infection, #14 TAB Nebulizer (Nebulizer) 1 Mis Mis EA .XX DIRECTED for Breathing Treatment, #[address] (Aspirin DR) 81 Mg Tabdr 81 MG PO DAILY for Blood Clot Prevention, #30 TAB [Albuterol-Ipratropium Neb] () 1 AMPULE NEBU 1 AMPULE NEB Q4HR NEB PRN for SOB/WHEEZING, #120 AMPULE Continued Medications: Allopurinol (Allopurinol) 100 Mg Tab 100 MG PO DAILY for Gout, #30 TAB 0 Refills (This prescription has been renewed) Amlodipine (Amlodipine) 10 Mg Tab 10 MG PO DAILY for Blood Pressure Management, #30 TAB 0 Refills (This prescription has been renewed) Atenolol (Atenolol) 50 Mg Tab 50 MG PO DAILY for Blood Pressure Management, #30 TAB 0 Refills (This prescription has been renewed) Calcitriol (Calcitriol) 0.25 Mcg Cap 0.25 MCG PO DAILY for Calcium Supplement, #30 CAP 0 Refills (This prescription has been renewed) Cholecalciferol (Vitamin D-1000) 1,000 Unit Tab 1000 UNITS PO DAILY for Nutritional Supplement, #30 TAB 0 Refills (This prescription has been renewed) Cyclobenzaprine (Flexeril) 10 Mg Tab 10 MG PO BID for Muscle Spasm, #90 TAB 0 Refills Hydrocodone-Acetaminophen (Hydrocodone-Acetaminophen) 7.5-300 Mg Tab 1 TAB PO BID PRN for PAIN, TAB 0 Refills Levothyroxine (Levothyroxine) 137 Mcg Tab 137 MCG PO DAILY for Thyroid, #30 TAB 0 Refills (This prescription has been renewed) Omeprazole (Omeprazole) 20 Mg Tab 20 MG PO DAILY for Manage Heartburn, #30 TAB 0 Refills (This prescription has been renewed) Pregabalin (Lyrica) 75 Mg Cap 75 MG PO BID for NEUROPATHY, #60 CAP 0 Refills (This prescription has been renewed) Zolpidem (Zolpidem) 10 Mg Tab 10 MG PO HS PRN for INSOMNIA, TAB 0 Refills Discontinued Medications: Furosemide (Furosemide) 40 Mg Tab 40 MG PO DAILY for Fluid overload, #30 TAB Marshall Baarkat DO May 11, 2018 11:53
[2018-05-11 13:39] LABS: BANDS 8 % (0-6); BASOPHILS 2 % (0-2); CORRECTED NUCLEATED RBC 2 /100 WBC (0-0); LYMPHOCYTES 38 % (9-44); METAMYELOCYTES 1 % (0-1); MONOCYTES 11 % (0-8); NEUTROPHIL # MANUAL DIFF 6.7 TH/MM3 (1.8-7.7); NUCLEATED RED BLOOD CELL 2 (0-0); POLYS (SEG NEUTROPHILS) 39 % (16-70); TARGET CELLS 1+ (NORMAL)
== END 2018-05-11 14:40 | disposition home or self-care (01) | DRG 872 ==
LOC: NEPC 14:59 → NEDA 18:33 → N04A 20:38
PROVIDERS: ADMIT Hospitalist; ATTEND Hospitalist
DX: A41.51 Sepsis due to Escherichia coli [E. coli] (principal); N17.9 Acute kidney failure, unspecified; Z68.41 Body mass index [BMI] 40.0-44.9, adult; G62.9 Polyneuropathy, unspecified; N39.0 Urinary tract infection, site not specified; I12.9 Hypertensive chronic kidney disease with stage 1 through stage 4 chronic kidney disease, or unspecified chronic kidney disease; N18.9 Chronic kidney disease, unspecified; M10.9 Gout, unspecified; E89.0 Postprocedural hypothyroidism; D63.1 Anemia in chronic kidney disease; Z87.891 Personal history of nicotine dependence; E66.9 Obesity, unspecified; F40.240 Claustrophobia; F41.9 Anxiety disorder, unspecified; Z85.71 Personal history of Hodgkin lymphoma; Z88.2 Allergy status to sulfonamides; Z88.1 Allergy status to other antibiotic agents; Z90.81 Acquired absence of spleen; Z96.653 Presence of artificial knee joint, bilateral
CPT/HCPCS: 71046; 71250; 76775; 76937; 78452; 78582; 80048; 80053; 80061; 80202; 81001; 82550; 82552; 82565; 82728; 83036; 83540; 83550; 83605; 83735; 84100; 84439; 84443; 84484; 85007; 85027; 85610; 85730; 87040; 87077; 87086; 87186; 87205; 93005; 93017; 93306; 99285; A9502; A9540; A9567; J1644; J2060; J2543; J2785; J3370; J7030; J7050

== ENCOUNTER 2018-07-05 19:52 | Inpatient (IN) ==
--- NOTE | 2018-07-05 21:35 | ED ---
HPI General Chief Complaint: Respiratory Symptoms Stated Complaint: Sob Time Seen by Provider: 07/05/18 21:23 Source: patient, RN notes reviewed and old records reviewed Mode of arrival: ambulatory Limitations: no limitations History of Present Illness 62-year-old female presents to the emergency department for progressively worsening shortness of breath that started 2 weeks ago. Patient has PMH of HTN , Hodgkin's Disease in Remission, Gout, Chronic Anemia and CKD. Patient reports SOB back in October last year. I reviewed the record and she was admitted for pulmonary edema. She was also admitted in April for leukocytosis with bandemia. She had a negative VQ scan at that time. Patient denies any fevers or chills. No chest pain. No abdominal pain, nausea, vomiting, or diarrhea. Moderate severity. Patient's oxygen saturation was 85% on room air upon arrival to room. MD Complaint: shortness of breath Onset (ago): week(s) (2) Severity: moderate Consistency/Duration: constant Relieving factors: nothing Exacerbating factors: exertion Associated symptoms: denies other symptoms Related Data Home Medications Medication Instructions Recorded Confirmed allopurinol 100 mg PO DAILY 07/05/18 07/05/18 amlodipine 10 mg PO DAILY 07/05/18 07/05/18 atenolol 50 mg PO DAILY 07/05/18 07/05/18 calcitriol 0.25 mcg PO DAILY 07/05/18 07/05/18 cholecalciferol (vitamin D3) 1,000 unit PO DAILY 07/05/18 07/05/18 [Vitamin D3] cyclobenzaprine 10 mg PO BID 07/05/18 07/05/18 furosemide [Lasix] 20 mg PO DAILY 07/05/18 07/05/18 hydrocodone-acetaminophen 1 tab PO Q4H PRN 07/05/18 07/05/18 levothyroxine 137 mcg PO DAILY 07/05/18 07/05/18 omeprazole 20 mg PO BID 07/05/18 07/05/18 pregabalin [Lyrica] 75 mg PO BID 07/05/18 07/05/18 zolpidem 10 mg PO HS 07/05/18 07/05/18 Allergies Allergy/AdvReac Type Severity Reaction Status Date / Time doxycycline Allergy Severe Anaphylaxis Verified 07/05/18 21:20 sulfamethoxazole Allergy Severe Anaphylaxis Verified 07/05/18 21:20 trimethoprim Allergy Severe Anaphylaxis Verified 07/05/18 21:20 Review of Systems ROS: all other systems reviewed are negative [facility] Medical History Medical History CKD (chronic kidney disease) (Acute) Hx of thyroidectomy (Acute) Hypertension (Acute) Surgical History Surgical History Hx of knee surgery (Acute) Hx of splenectomy (Acute) No history of previous surgery (Acute) Social History Social History Substance History: No History of Abuse Smoking Status: Former smoker How Often Do You Have a Drink Containing Alcohol: Never Recent Travel in [facility] within the Last 8 Weeks: No Recent Out of Country Travel within the Last 8 Weeks: No Immunization History Tetanus Immunization: Unsure Hx Influenza Vaccine This Season: No Exam Narrative Exam Narrative: GENERAL: Well-nourished, well-developed female patient, afebrile. SKIN: Focused skin assessment warm/dry. HEAD: Normocephalic. Atraumatic EYES: No scleral icterus. No injection or drainage. NECK: Supple, trachea midline. No JVD or lymphadenopathy. CARDIOVASCULAR: Regular rate and rhythm without murmurs, gallops, or rubs. Bilateral radial and pedal pulses 2+ RESPIRATORY: Breath sounds equal bilaterally. No accessory muscle use. Lung sounds diminished GASTROINTESTINAL: Abdomen soft, non-tender, nondistended. MUSCULOSKELETAL: No cyanosis. 1+ edema to LLE BACK: No CVA tenderness. Course Initial Documented Vital Signs Temperature 98.9 F 07/05/18 20:33 Pulse Rate 86 07/05/18 20:33 Respiratory Rate 22 07/05/18 20:33 Blood Pressure 146/69 H 07/05/18 20:33 Pulse Oximetry 93 L 07/05/18 20:33 Last Documented Vital Signs Temperature 98.9 F 07/05/18 20:33 Pulse Rate 88 07/05/18 23:56 Respiratory Rate 18 07/05/18 23:56 Blood Pressure 164/70 H 07/05/18 23:56 Pulse Oximetry 98 07/05/18 23:56 Medical Decision Making MDM Narrative Medical decision making narrative: 62 year old female presents to the emergency department for evaluation of SOB for 2 weeks. EKG, CBC, BMP, Magnesium, CK, Troponin, BNP, PTT, PT/INR, chest x-ray are ordered and pending. CBC shows leukocytosis of 13.6. BMP, CK, Troponin, Magnesium are pending. BNP is 419. PTT is 27.3. PT/INR is 11.2/1.1. Chest x-ray shows Cardiomegaly with some interstitial prominence and haziness characteristic of some degree of vascular congestion or volume overload, Possible small bilateral pleural effusions. No superimposed acute infiltrate. Patient was given Lasix [address] Michelle will resume care of patient and disposition. Case was discussed with Dr. Wesley, troponin is elevated, and heparin was initiated aspirin was initiated in the ER. Patient to be admitted for further treatment. Medical Screen Exam Complete: Yes Emergency Medical Condition: Yes Differential Diagnosis Differential Diagnosis: pneumonia vs. CHF vs. PE vs. ACS Medical Records Medical records reviewed: Yes I reviewed the patient's medical records. Lab Data Result diagrams: 07/05/18 21:37 07/05/18 21:37 Lab Results 07/05/18 07/05/18 07/05/18 Range/Units 21:37 21:37 21:37 WBC 13.6 H (4.0-11.0) th/mm3 RBC 2.76 L (4.00-5.30) mil/mm3 Hgb 8.8 L (11.6-15.3) gm/dL Hct 27.9 L (35.0-46.0) % MCV 101.2 H (80.0-100.0) fL MCH 32.1 (27.0-34.0) pg MCHC 31.7 L (32.0-36.0) % RDW 16.5 (11.6-17.2) % Plt Count 267 (150-450) th/mm3 MPV 11.1 H (7.0-11.0) fL Prelim Diff (Auto) Manual diff required WBC Differential Manual diff final Seg Neuts % (Manual) 45 (16-70) % Band Neuts % (Manual) 5 (0-6) % Lymphocytes % (Manual) 40 (9-44) % Monocytes % (Manual) 8 (0-8) % Eosinophils % (Manual) 1 (0-4) % Basophils % (Manual) 1 (0-2) % Abs Neuts (Manual) 6.8 (1.8-7.7) th/mm3 Nucleated RBCs/100 WBC 2 H (0-0) /100 WBC Differential Comment . Platelet Estimate Normal (Normal) Platelet Morphology Enlarged H (Normal) Target Cells 1+ H (None) Ovalocytes 1+ H (None) Red-[place] Bodies Present H (None) Rouleaux Present H (None) Keratocytes Occ H (None) PT 11.2 (9.8-11.6) sec INR 1.1 Ratio APTT (24.3-30.1) sec Sodium 138 (136-145) meq/L Potassium 5.0 (3.5-5.1) meq/L Chloride 103 (98-107) meq/L Carbon Dioxide 27.6 (21.0-32.0) meq/L Anion Gap 7 (5-15) meq/L BUN 35 H (7-18) mg/dL Creatinine 2.27 H (0.50-1.00) mg/dL Estimated GFR 26 L (>89) mL/min Random Glucose 96 (74-106) mg/dL Calcium 9.1 (8.5-10.1) mg/dL Magnesium (1.5-2.5) mg/dL Total Bilirubin 0.4 (0.2-1.0) mg/dL AST 28 (15-37) U/L ALT 17 (10-53) U/L Alkaline Phosphatase 70 (45-117) U/L Total Creatine Kinase (26-192) U/L CK-MB (CK-2) (0.5-3.6) ng/mL Troponin I 0.87 H* (0.02-0.05) ng/mL B-Natriuretic Peptide (0-100) pg/mL Total Protein 8.9 H (6.4-8.2) g/dL Albumin 3.2 L (3.4-5.0) g/dL 07/05/18 07/05/18 07/05/18 Range/Units 21:37 21:37 21:37 WBC (4.0-11.0) th/mm3 RBC (4.00-5.30) mil/mm3 Hgb (11.6-15.3) gm/dL Hct (35.0-46.0) % MCV (80.0-100.0) fL MCH (27.0-34.0) pg MCHC (32.0-36.0) % RDW (11.6-17.2) % Plt Count (150-450) th/mm3 MPV (7.0-11.0) fL Prelim Diff (Auto) WBC Differential Seg Neuts % (Manual) (16-70) % Band Neuts % (Manual) (0-6) % Lymphocytes % (Manual) (9-44) % Monocytes % (Manual) (0-8) % Eosinophils % (Manual) (0-4) % Basophils % (Manual) (0-2) % Abs Neuts (Manual) (1.8-7.7) th/mm3 Nucleated RBCs/100 WBC (0-0) /100 WBC Differential Comment Platelet Estimate (Normal) Platelet Morphology (Normal) Target Cells (None) Ovalocytes (None) Red[place] Bodies (None) Rouleaux (None) Keratocytes (None) PT (9.8-11.6) sec INR Ratio APTT 27.3 (24.3-30.1) sec Sodium (136-145) meq/L Potassium (3.5-5.1) meq/L Chloride (98-107) meq/L Carbon Dioxide (21.0-32.0) meq/L Anion Gap (5-15) meq/L BUN (7-18) mg/dL Creatinine (0.50-1.00) mg/dL Estimated GFR (>89) mL/min Random Glucose (74-106) mg/dL Calcium (8.5-10.1) mg/dL Magnesium 1.7 (1.5-2.5) mg/dL Total Bilirubin (0.2-1.0) mg/dL AST (15-37) U/L ALT (10-53) U/L Alkaline Phosphatase (45-117) U/L Total Creatine Kinase 104 (26-192) U/L CK-MB (CK-2) Less than 1 (0.5-3.6) ng/mL Troponin I (0.02-0.05) ng/mL B-Natriuretic Peptide 419 H (0-100) pg/mL Total Protein (6.4-8.2) g/dL Albumin (3.4-5.0) g/dL Imaging Data Radiologist's impression: Chest X-Ray 07/05/18 21:31 CONCLUSION: 1. Cardiomegaly with some interstitial prominence and haziness characteristic of some degree of vascular congestion or volume overload. 2. Possible small bilateral pleural effusions. No superimposed acute infiltrate Discharge Plan Discharge Disposition Patient Disposition: 30 Still Patient Discharge Condition Condition: Good Discharge Details Anticipated Discharge Date: 07/06/18 Diagnosis: Non-ST elevation NE (NSTEMI), CHF (congestive heart failure) Physicians Team ED Provider: Laura Michelle ED Midlevel Provider: Alise Chaudhry Primary Care Provider: UNKNOWN, Rxs /Orders / Referrals /Forms Prescriptions: No Action cyclobenzaprine 10 mg Tablet 10 mg PO BID RF: 0 levothyroxine 137 mcg Tablet 137 mcg PO DAILY RF: 0 allopurinol 100 mg Tablet 100 mg PO DAILY RF: 0 amlodipine 10 mg Tablet 10 mg PO DAILY RF: 0 hydrocodone-acetaminophen 7.5-325 mg Tablet 1 tab PO Q4H PRN (Reason: Pain) RF: 0 omeprazole 20 mg Capsule,Delayed Release(Dr/Ec) 20 mg PO BID RF: 0 zolpidem 10 mg Tablet 10 mg PO HS RF: 0 atenolol 50 mg Tablet 50 mg PO DAILY RF: 0 calcitriol 0.25 mcg Capsule 0.25 mcg PO DAILY RF: 0 cholecalciferol (vitamin D3) [Vitamin D3] 1,000 unit Capsule 1,000 unit PO DAILY RF: 0 pregabalin [Lyrica] 75 mg Capsule 75 mg PO BID RF: 0 furosemide [Lasix] 20 mg Tablet 20 mg PO DAILY RF: 0 Status ED Status: With Doctor
--- NOTE | 2018-07-05 21:55 | XR ---
EXAM DATE: 07/05/2018 9:48 PM EDT AGE/SEX: 62 years / Female INDICATIONS: Short of breath. CLINICAL DATA: This is the patient's initial encounter. Patient reports that signs and symptoms have been present for 2 weeks and indicates a pain score of 0/10. MEDICAL/SURGICAL HISTORY: None. None. COMPARISON: [facility], XR CHEST PA AND LAT, 06/26/2018. . FINDINGS: A single AP view of the chest demonstrates persistent interstitial prominence with haziness of the in terstitial markings characteristic of some degree of vascular congestion or volume overload. No super imposed acute infiltrate. Possible small effusions. Heart size is borderline prominent. Osseous struc tures are intact with some degenerative spurring of the dorsal spine CONCLUSION: 1. Cardiomegaly with some interstitial prominence and haziness characteristic of some degree of vasc ular congestion or volume overload. 2. Possible small bilateral pleural effusions. No superimposed acute infiltrate Electronically signed by: Ry Caceres MD 07/05/2018 9:54 PM EDT
[2018-07-05 21:57] LABS: Hematocrit 27.9 % (35.0-46.0); Hemoglobin 8.8 gm/dL (11.6-15.3); Mean Corpuscular HGB Conc 31.7 % (32.0-36.0); Mean Corpuscular Hemoglobin 32.1 pg (27.0-34.0); Mean Corpuscular Volume 101.2 fL (80.0-100.0); Mean Platelet Volume 11.1 fL (7.0-11.0); Platelet Count 267 th/mm3 (150-450); Red Blood Count 2.76 mil/mm3 (4.00-5.30); Red Cell Distribution Width 16.5 % (11.6-17.2); White Blood Count 13.6 th/mm3 (4.0-11.0)
[2018-07-05 22:11] LABS: INR 1.1 Ratio; Prothrombin Time 11.2 sec (9.8-11.6)
[2018-07-05 22:21] LABS: Alanine Aminotransferase 17 U/L (10-53)
[2018-07-05 22:35] LABS: Albumin 3.2 g/dL (3.4-5.0); Alkaline Phosphatase 70 U/L (45-117); Anion Gap 7 meq/L (5-15); Aspartate Aminotransferase 28 U/L (15-37); Blood Urea Nitrogen 35 mg/dL (7-18); Calcium 9.1 mg/dL (8.5-10.1); Carbon Dioxide 27.6 meq/L (21.0-32.0); Chloride 103 meq/L (98-107); Glomerular Filtration Rate 26 mL/min (>89); Glucose,Random 96 mg/dL (74-106); Sodium 138 meq/L (136-145); Total Protein 8.9 g/dL (6.4-8.2)
[2018-07-05 22:36] LABS: Magnesium 1.7 mg/dL (1.5-2.5)
[2018-07-05 22:41] LABS: Creatine Kinase 104 U/L (26-192)
[2018-07-05 22:53] LABS: Eosinophils 1 % (0-4); Lymphocytes 40 % (9-44); Monocytes 8 % (0-8); Tallied Nucleated RBC 2 (0-0)
[2018-07-05 22:54] LABS: Howell-Jolly Bodies Present; Platelet Estimate Normal (Normal); Rouleaux Present; Target Cells 1+
[2018-07-05 22:56] LABS: Ovalocytes 1+
[2018-07-05 22:57] LABS: Troponin I 0.87 ng/mL (0.02-0.05)
[2018-07-05] MEDS ORDERED: Aspirin 325 MG Tablet PO ONE (23:01)
[2018-07-06] MEDS ORDERED: Bisacodyl 10 MG Supp RECTAL PRN (00:18)
[2018-07-06] MEDS ORDERED: Acetaminophen 325 MG Tablet PO PRN (00:18)
[2018-07-06] MEDS ORDERED: Temazepam 15 MG Capsule PO PRN (00:18)
[2018-07-06] MEDS ORDERED: Heparin 10,000 UNITS/10 ML Vial (for IV use) IV.PUSH STA (00:20)
[2018-07-06] MEDS ORDERED: Sod Chloride 0.9% Inj 1,000 ML IV.CONT SCH (00:30)
[2018-07-06] MEDS: Heparin Drip 25,000 UNIT/250 ML BAG IV.CONT PRN (00:39)
--- NOTE | 2018-07-06 00:57 | P.HPIM ---
History of Present Illness Primary Care Physician: UNKNOWN History of Present Illness: This is a 62-year-old female with a PMH of HTN, Hodgkin's Disease, Gout, Anemia , CHF (Echo 05/09/2018 with EF 55-60%) and Hypothyroidism who presented to the ER w/ complaints of SOB. States she felt like she was having a "panic attack". Denies fever, chills, chest pain or cough. On arrival, BP 146/69, HR 86, O2 sat 85% on RA, Afebrile. WBC 13.6. Hemoglobin 8.8, previously 7.5 on 2017. INR 1.1. Creatinine 2.27, previously 1.94 on 05/11/2018. Troponin 0 0.87. BNP 419. CXR with cardiomegaly and interstitial prominence characteristic of vascular congestion or volume overload. S/p Lasix 40mg IV in ER and started on Heparin gtt. 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 - Diagnosis (1) NSTEMI (non-ST elevated myocardial infarction) (2) Hypoxia (3) Anemia (4) Renal insufficiency (5) CHF (congestive heart failure) Inpatient Certification: I certify that the inpatient services were ordered in accordance with Medicare regulations governing the order. This includes certification that hospital inpatient services are reasonable and necessary and in the case of services not specified as inpatient-only under 42 CFR 419.22(n), that they are appropriately provided as inpatient services in accordance to with the 2-midnight benchmark under 43 CFR 412.3(e) Estimated Total Length of Stay (Days): 2 Plans for Post Hospital Care: Not yet determined Review of Systems PAST FAMILY HISTORY: Reviewed, positive for CAD. All other systems reviewed negative except as stated in HPI [facility] - History History Provided By: Patient - Medical History Medical History: Medical History (Last Updated 07/05/18 @ 21:22 by Gerson Mckinnon) CKD (chronic kidney disease) Hx of thyroidectomy Hypertension - Surgical History Surgical History: Surgical History (Last Updated 07/05/18 @ 21:22 by Gerson Mckinnon) Hx of knee surgery Hx of splenectomy No history of previous surgery - Tobacco History Smoking Status: Former smoker - Alcohol History How Often Do You Have a Drink Containing Alcohol: Never - Substance Use History Substance History: No History of Abuse - Travel History Recent Travel in the [place] Within the Last 8 Weeks: No Recent Travel Out of the Country Within the Last 8 Weeks: No - Immunization History Tetanus Immunization: Unsure Hx Influenza Vaccine This Season: No Medications and Allergies Active Medications: Active Medications Acetaminophen (Tylenol) 650 mg PO Q4H PRN PRN Reason: Temp > 100.4 Hydrocodone Bitart/Acetaminophen ([place] 7.5/325) 1 tab PO Q4H PRN PRN Reason: PAIN 3-5; IF UABLE TO TAKE PO Al Hydroxide/Mg Hydroxide (Milk Of Magnesia Liq) 30 ml PO Q12H PRN PRN Reason: Mild Constipation Atenolol (Tenormin) 50 mg PO DAILY LINDA Bisacodyl (Dulcolax Supp) 10 mg RECTAL DAILY PRN PRN Reason: SEVERE CONSITIPATION Furosemide (Lasix Inj) 40 mg IV.PUSH BID@0900,1800 [facility] Heparin Sodium/Dextrose (Heparin/D5w 25,000 U/250 Ml) 25,000 unit in 250 mls @ 0 mls/hr IV.CONT TITRATE PRN; Protocol PRN Reason: Per Protocol Last Admin: 07/06/18 00:39 Dose: 1,000 units/hr, 10 mls/hr Sodium Chloride (Ns Inj) 1,000 mls @ 100 mls/hr IV.CONT .Q10H LINDA Lactulose (Lactulose Liq) 30 ml PO DAILY PRN PRN Reason: SEVERE CONSITIPATION Morphine Sulfate (Morphine Inj) 2 mg IV.PUSH Q4H PRN PRN Reason: PAIN 6-10 Ondansetron HCl (Zofran Inj) 4 mg IV.PUSH Q6H PRN PRN Reason: NAUSEA OR VOMITING Pregabalin (Lyrica) 75 mg PO BID [facility] Senna/Docusate Sodium (Joyce-Colace) 1 tab PO BID [facility] Sennosides (Senokot) 17.2 mg PO Q12H PRN PRN Reason: Moderate Constipation Zolpidem Tartrate (Ambien) 10 mg PO HS [facility] Allergies Allergy/AdvReac Type Severity Reaction Status Date / Time doxycycline Allergy Severe Anaphylaxis Verified 07/05/18 21:20 sulfamethoxazole Allergy Severe Anaphylaxis Verified 07/05/18 21:20 trimethoprim Allergy Severe Anaphylaxis Verified 07/05/18 21:20 Home Medications Medication Instructions Recorded Confirmed Type allopurinol 100 mg PO DAILY 07/05/18 07/05/18 History amlodipine 10 mg PO DAILY 07/05/18 07/05/18 History atenolol 50 mg PO DAILY 07/05/18 07/05/18 History calcitriol 0.25 mcg PO DAILY 07/05/18 07/05/18 History cholecalciferol (vitamin D3) 1,000 unit PO DAILY 07/05/18 07/05/18 History [Vitamin D3] cyclobenzaprine 10 mg PO BID 07/05/18 07/05/18 History furosemide [Lasix] 20 mg PO DAILY 07/05/18 07/05/18 History hydrocodone-acetaminophen 1 tab PO Q4H PRN 07/05/18 07/05/18 History levothyroxine 137 mcg PO DAILY 07/05/18 07/05/18 History omeprazole 20 mg PO BID 07/05/18 07/05/18 History pregabalin [Lyrica] 75 mg PO BID 07/05/18 07/05/18 History zolpidem 10 mg PO HS 07/05/18 07/05/18 History Exam Vital signs: Vital Signs 07/05/18 20:33 07/05/18 21:20 07/05/18 21:25 Temperature 98.9 F Pulse Rate 86 89 Respiratory Rate 22 20 20 Blood Pressure 146/69 H 148/67 H Pulse Oximetry 93 L 85 L 98 07/05/18 21:31 07/05/18 22:08 07/05/18 22:34 Temperature Pulse Rate 86 Respiratory Rate 18 Blood Pressure 152/67 H Pulse Oximetry 99 96 96 07/05/18 23:16 07/05/18 23:56 Temperature Pulse Rate 86 88 Respiratory Rate 18 18 Blood Pressure 176/79 H 164/70 H Pulse Oximetry 95 98 Intake & Output 07/05/18 07/05/18 07/06/18 06:59 18:59 06:59 Weight 92 kg Narrative: PE: GENERAL: Extremely pleasant middle-aged black female in no acute distress. HEENT: PERRLA, EOMI. No scleral icterus or conjunctival pallor. No lid lag or facial droop. CARDIOVASCULAR: Regular rate and rhythm. No obvious murmurs to auscultation. No chest tenderness to palpation. RESPIRATORY: No obvious rhonchi or wheezing. Clear to auscultation. Breath sounds equal bilaterally. GASTROINTESTINAL: Abdomen soft, non-tender, nondistended. BS normal. MUSCULOSKELETAL: Extremities without clubbing, cyanosis, 1-2+ edema. No obvious deformities. NEUROLOGICAL: Awake, alert and oriented x4. No focal neurologic deficits. Moving both upper and lower extremities spontaneously. Results - Labs CBC & Chem 7: 07/05/18 21:37 07/05/18 21:37 Labs: Short CBC 07/05/18 Range/Units 21:37 WBC 13.6 H (4.0-11.0) th/mm3 Hgb 8.8 L (11.6-15.3) gm/dL Hct 27.9 L (35.0-46.0) % Plt Count 267 (150-450) th/mm3 BMP 07/05/18 21:37 Sodium 138 Potassium 5.0 Chloride 103 Carbon Dioxide 27.6 BUN 35 H Creatinine 2.27 H Calcium 9.1 Cardiac Enzymes 07/05/18 07/05/18 Range/Units 21:37 21:37 Total Creatine Kinase 104 (26-192) U/L CK-MB (CK-2) Less than 1 (0.5-3.6) ng/mL Troponin I 0.87 H* (0.02-0.05) ng/mL Liver Function 07/05/18 Range/Units 21:37 Total Bilirubin 0.4 (0.2-1.0) mg/dL AST 28 (15-37) U/L ALT 17 (10-53) U/L Alkaline Phosphatase 70 (45-117) U/L Albumin 3.2 L (3.4-5.0) g/dL - Imaging Impressions Chest X-Ray 07/05/18 21:31 CONCLUSION: 1. Cardiomegaly with some interstitial prominence and haziness characteristic of some degree of vascular congestion or volume overload. 2. Possible small bilateral pleural effusions. No superimposed acute infiltrate Caprini VTE Risk Assessment Caprini VTE Risk Assessment: Moderate/High Risk (score >= 2) Caprini Risk Assessment Model: Point Value = 1 Point Value = 2 Point Value = 3 Point Value = 5 Age 41-60 Minor surgery BMI > 25 kg/m2 Swollen legs Varicose veins or History of unexplained or recurrent spontaneous Oral contraceptives or hormone replacement Sepsis (< 1 month) Serious lung disease, including pneumonia (< 1 month) Abnormal pulmonary function Acute myocardial infarction Congestive heart failure (< 1 month) History of inflammatory bowel disease Medical patient at bed rest Age 61-74 Arthroscopic surgery Major open surgery (> 45 min) Laparoscopic surgery (> 45 min) Malignancy Confined to bed (> 72 hours) Immobilizing plaster cast Central venous access Age >= 75 History of VTE Family history of VTE Factor V Leiden Prothrombin [id number] Lupus anticoagulant Anticardiolipin antibodies Elevated serum homocysteine Heparin-induced thrombocytopenia Other congenital or acquired thrombophilia Stroke (< 1 month) Elective arthroplasty Hip, pelvis, or leg fracture Acute spinal cord injury (< 1 month) Prophylaxis Regimen: Total Risk Factor Score Risk Level Prophylaxis Regimen 0-1 Low Early ambulation 2 Moderate Order ONE of the following: *Sequential Compression Device (SCD) *Heparin 5000 units SQ BID 3-4 Higher Order ONE of the following medications: *Heparin 5000 units SQ TID *Enoxaparin/Lovenox 40 mg SQ daily (WT < 150 kg, CrCl > 30 mL/min) *Enoxaparin/Lovenox 30 mg SQ daily (WT < 150 kg, CrCl > 10-29 mL/min) *Enoxaparin/Lovenox 30 mg SQ BID (WT < 150 kg, CrCl > 30 mL/min) AND/OR *Sequential Compression Device (SCD) 5 or more Highest Order ONE of the following medications: *Heparin 5000 units SQ TID (Preferred with Epidurals) *Enoxaparin/Lovenox 40 mg SQ daily (WT < 150 kg, CrCl > 30 mL/min) *Enoxaparin/Lovenox 30 mg SQ daily (WT < 150 kg, CrCl > 10-29 mL/min) *Enoxaparin/Lovenox 30 mg SQ BID (WT < 150 kg, CrCl > 30 mL/min) AND *Sequential Compression Device (SCD) Assessment and Plan - Assessment (1) NSTEMI (non-ST elevated myocardial infarction) Code(s): I21.4 - Non-ST elevation (NSTEMI) myocardial infarction Status: Acute (2) Hypoxia Code(s): R09.02 - Hypoxemia Status: Acute (3) Anemia Code(s): D64.9 - Anemia, unspecified Status: Acute (4) Renal insufficiency Code(s): N28.9 - Disorder of kidney and ureter, unspecified Status: Acute (5) CHF (congestive heart failure) Code(s): I50.9 - Heart failure, unspecified Status: Acute - Plan A/P: 1. NSTEMI: Trop 0.87, EKG w/ no acute ischemia, no c/o chest pain, will admit to [facility], continue w/ Heparin gtt, check serial cardiac enzymes, consult Cardiology for further evaluation, NPO, analgesics as needed. Start ASA, Statin , resume home Atenolol. 2. Hypoxia: c/o SOB, O2 sat 85% on RA upon arrival, currently 98% on 2L NC, likely secondary to CHF, CXR w/ vascular congestion. Monitor O2. 3. CHF: Acute on Chronic. Diastolic. Echo 05/09/18 w/ EF 55-60%, BNP 419, CXR w/ vascular congestion, s/p Lasix IV in ER, will continue w/ diuresis, caution w/ renal function, Monitor I/O. 4. Renal Insufficiency: Acute on Chronic. Creatinine 2.27, previously 1.94 on 05/11/18, monitor I/O, repeat labs in am. 5. Anemia: Hgb 8.8, previously 7.5 on 05/11/18, no active bleeding, will monitor, repeat labs in am, transfuse as needed. 6. DVT Prophylaxis: Heparin gtt 7. Social work for d/c planning as needed 8. Case discussed w/ ER physician at length, labs/records/imaging reviewed by me.
[2018-07-06 06:06] LABS: Hemoglobin 8.3 gm/dL (11.6-15.3); Mean Corpuscular Hemoglobin 32.3 pg (27.0-34.0); Mean Corpuscular Volume 100.9 fL (80.0-100.0); Mean Platelet Volume 11.5 fL (7.0-11.0); Platelet Count 264 th/mm3 (150-450); Red Blood Count 2.57 mil/mm3 (4.00-5.30); Red Cell Distribution Width 16.6 % (11.6-17.2)
[2018-07-06] MEDS: Pregabalin 75 MG Capsule PO SCH ×3 (09:25→20:32)
[2018-07-06] MEDS: Senna/Docusate Sodium 8.6/50 MG Tablet PO SCH ×2 (09:25→20:28)
[2018-07-06] MEDS: Atenolol 50 MG Tablet PO SCH (09:25)
[2018-07-06 10:06] LABS: Calcium 8.8 mg/dL (8.5-10.1); Carbon Dioxide 28.2 meq/L (21.0-32.0); Potassium 4.3 meq/L (3.5-5.1)
--- NOTE | 2018-07-06 11:02 | ECG ---
Date Performed: 07/05/2018 Time Performed: 23:03:18 PTAGE: 62 years EKG: Sinus rhythm NONSPECIFIC T-WAVE ABNORMALITY BORDERLINE ECG INTERPRETATION BASED ON A DEFAULT AGE OF 40 YEARS PREVIOUS TRACING 05/05/2018 04.48 Since the previous tracing, no significant change noted DOCTOR: Wilton Lynch Interpretating Date/Time 07/06/2018 11:00:38
--- NOTE | 2018-07-06 11:22 | MB ---
cc: Wilton Lynch MD DATE: 07/06/2018 REASON FOR CONSULTATION: Evaluation of elevated troponin. HISTORY OF PRESENT ILLNESS: Marisel Ontiveros is a morbidly obese 62-year-old female with a history of hypertension and chronic kidney disease, who comes in with complaints of shortness of breath. Shortness of breath has been going on for at least 2 weeks, getting progressively worse. She has noticed slight swelling in her feet. Finally came into the hospital, and she troponin was elevated at 0.87. She denies any chest pain. I could not elicit any chest discomfort, tightness, pressure or squeezing, or any other type of neck or upper body discomfort that I would construe as angina. She has had shortness of breath before. She was hypoxic when she first got to the ER, with an oxygen saturation of only 85%. She has had similar presentations with shortness of breath and reduced oxygen before. She is severely morbidly obese. She has had slight elevations in her troponin in the past, but not this high before. PAST MEDICAL HISTORY: Includes hypertension, gout, Hodgkin's disease in remission, chronic kidney disease followed by Dr. Salmon, morbid obesity, gastroesophageal reflux disease, and chronic low back pain. PAST SURGICAL HISTORY: Includes splenectomy, thyroidectomy, cholecystectomy, and bilateral total knee replacements. SOCIAL HISTORY: She smoked less than a pack a day from her early 20s to early 30s. She drinks alcohol socially. She is . REVIEW OF SYSTEMS: She denies any bleeding. Remaining review of systems is negative. PHYSICAL EXAMINATION: GENERAL: Reveals a pleasant female, morbidly obese, in no acute distress. VITAL SIGNS: Charted. HEENT: Unremarkable. NECK: Supple. Obesity precludes good visualization of the neck veins. There are no bruits. CHEST: Shows diminished breath sounds at the bases. CARDIAC: S1, S2, regular rate and rhythm. I do not hear murmurs or gallops. ABDOMEN: Grossly obese. No masses or tenderness. EXTREMITIES: Markedly obese. There is at least 1+ lower extremity pitting edema. LABORATORY DATA: BUN and creatinine are elevated. Creatinine is 2.27. Hematocrit currently is 26. She has been running hematocrits in this range. Troponin is declining, from 0.87 down to 0.71. BNP is mildly elevated at 419. EKG does not show any acute ST-T wave changes. Chest x-ray shows cardiomegaly, question small effusions, question of mild congestion. Echo I have looked at shows mild left ventricular hypertrophy, normal left ventricular function. There is mild mitral and aortic regurgitation and moderate tricuspid regurgitation with elevated right-sided pressures, estimated pulmonary artery pressure around 47. IMPRESSION: Morbidly obese woman with chronic kidney disease and hypertension, presenting with shortness of breath. She does not have any typical ischemic-type symptoms. Troponin is elevated. Troponin is going to be more elevated than normal due to her chronic kidney disease and left ventricular hypertrophy, but it is much more elevated than on previous admissions. I cannot elicit any chest pain from her. She is at very high risk for renal failure from a heart catheterization. In the absence of wall motion abnormalities, LV dysfunction or EKG changes, I am going to be conservative. I am going to add Plavix with a 300 mg load and then 75 mg daily. I am going to continue Lasix 40 IV b.i.d. I think she needs a pulmonary consult. Recommend primary team to evaluate them. She may have obesity hypoventilation syndrome. The hypoxia is very concerning that she had on admission. Further therapy to be determined. Wilton Lynch MD VEW/kb , 10:19 AM , 10:29 AM
--- NOTE | 2018-07-06 16:10 | ECHRPT ---
Indication: HEART FAILURE CONCLUSIONS Normal left ventricular size. Mild concentric left ventricular hypertrophy. The left ventricular systolic function is normal with an estimated ejection fraction in the range of 55-60%. The left atrial size is upper limits of normal. Mitral annular calcification is present. Mild mitral valve regurgitation. Trace aortic valve regurgitation. There is moderate tricuspid regurgitation. The estimated pulmonary arterial pressure is 52 mmHg. Trivial pulmonary valve regurgitation. BP: / HR: Rhythm: Technical Quality: FINDINGS LEFT VENTRICLE No regional wall motion abnormalities are present. Normal left ventricular size. Mild concentric left ventricular hypertrophy. The left ventricular systolic function is normal with an estimated ejection fraction in the range of 55-60%. RIGHT VENTRICLE Normal right ventricular size and systolic function. LEFT ATRIUM The left atrial size is upper limits of normal. RIGHT ATRIUM The right atrial size is normal. ATRIAL SEPTUM Normal atrial septal thickness without atrial level shunting by limited color doppler interrogation. AORTA The aortic root and proximal ascending aorta are normal in size on limited imaging. MITRAL VALVE Mitral annular calcification is present. Mild mitral valve regurgitation. AORTIC VALVE Trace aortic valve regurgitation. TRICUSPID VALVE There is moderate tricuspid regurgitation. The estimated pulmonary arterial pressure is 52 mmHg. PULMONARY VALVE Trivial pulmonary valve regurgitation. VESSELS The inferior vena cava is normal in size. PERICARDIUM No pericardial effusion. Wilton Lynch MD (Electronically Signed) Final Date:06 July 2018 16:09
[2018-07-06] MEDS: Azithromycin Inj 500 MG in Sodium Chlor 0.9% Inj 250 ML IV.SIG SCH (20:29)
--- NOTE | 2018-07-06 20:33 | MB ---
cc: Rodger Bah MD DATE: 07/06/2018 REASON FOR CONSULTATION: Pulmonary infiltrates and effusion. HISTORY OF PRESENT ILLNESS: This is a 62-year-old obese female with a history of hypertension and history of gout, anemia, CHF and hypothyroidism. She has had a remote history of Hodgkin disease treated with radiation and chemotherapy. The patient apparently was experiencing shortness of breath, orthopnea tightness in the chest and was seen in the emergency room where she was sent for a chest x-ray. The chest x-ray showed increased interstitial infiltrates with pleural effusions, and she has been placed on IV Lasix 40 mg and started on heparin with possible NSTEMI. Cardiology evaluation is pending. The patient apparently has had a prior history of a cardiac problems, as well as hypertension and hypothyroidism. She denies any chest pains at this time, but states she had some panic attacks. PAST MEDICAL HISTORY: Has included history of hypertension, chronic kidney disease, history of hyperlipidemia and prior history of thyroidectomy and cholecystectomy as well as a splenectomy during treatment for Hodgkin disease 44 years ago. She has had knee surgery for trauma. She has had pneumonia in the past. HABITS: The patient was a smoker for about 13 years, a pack per day and then quit. Alcohol in the past, but not recently. 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 FAMILY HISTORY: Significant for coronary artery disease. ALLERGIES: BACTRIM. REVIEW OF SYSTEMS: The patient is overweight. She has trouble ambulating due to arthritis and back pain. She uses a walker. She has leg swelling, dizzy attacks. She has epigastric distress and cramping. She has urinary frequency. Denies any history of sleep apnea or snoring. The other system review is negative. PHYSICAL EXAMINATION: GENERAL: This is a very obese, middle-aged -[place] lady who is alert, in no acute distress. Mild pallor. No cyanosis or icterus. No lymphadenopathy. There is mild peripheral edema. VITAL SIGNS: Blood pressure is 140/80, pulse is 82, respirations 20, temperature 97.2. HEENT: Head is normocephalic. Pupils reactive and equal. Tongue dry. Throat is injected. Nasal mucosa is clear. NECK: Supple, no bruits. There is mild venous distention. Trachea midline. No thyroid enlargement. CHEST: Equal movements with fine crackles at the lung bases, more so on the left side. Wheezes are also heard. HEART: Sounds are irregular S1 and S2 with no murmur, no S3. ABDOMEN: Obese, protuberant without masses, organomegaly or tenderness. The bowel sounds are active. EXTREMITIES: Varicose veins and mild peripheral edema. No calf tenderness or swelling. Reflexes are 1+ with no gross motor deficits. Cranial nerves grossly intact. RECTAL: Deferred. IMPRESSION: 1. Pulmonary edema with pleural effusions. 2. Probable basilar pneumonia. 3. [id number] myocardial infarction. 4. Anemia of chronic disease. 5. Chronic kidney disease, stage III. 6. Exogenous obesity and possible sleep apnea. PLAN: The patient will be placed on O2 at 3 liters. Blood gas studies to be obtained. Nebulized DuoNeb solution added q.i.d., and a CT of the chest without contrast. We will place her on Zithromax 500 mg p.o. daily. Continue with diuretic therapy as ordered. The patient will be sent for a CT chest without contrast. A CBC, basic metabolic profile has been ordered. Further evaluation will depend on the test results already ordered. Rodger Bah MD VLORENZO/lonnie , 07:31 PM , 07:45 PM
[2018-07-06] MEDS: Morphine Inj 4 MG/ML Vial IV.PUSH PRN (21:46)
--- NOTE | 2018-07-06 22:25 | CT ---
EXAM DATE: 07/06/2018 10:18 PM EDT AGE/SEX: 62 years / Female INDICATIONS: Follow up infiltrate. CLINICAL DATA: This is the patient's subsequent encounter. Patient reports that signs and symptoms h ave been present for 1 day and indicates a pain score of 0/10. MEDICAL/SURGICAL HISTORY: Renal insufficiency, chronic. Congestive heart failure. Anemia. Hypert ension . Splenectomy, knee surgery RADIATION DOSE: 17.28 CTDI (mGy) ; Patient body habitus COMPARISON: [facility] [place], CT PULMONARY ANGIOGRAM, 10/08/2017. . TECHNIQUE: Multiple contiguous axial images were obtained through the chest without contrast. Image s were obtained in suspended respiration using multiple row detector helical technique. Using automa joann exposure control and adjustment of the mA and/or kV according to patient size, radiation dose was kept as low as reasonably achievable to obtain optimal diagnostic quality images. DICOM format imag e data is available electronically for review and comparison. FINDINGS: Lungs: The lungs are symmetrically aerated. There are no larger masses or nodules. There is mild pat jennifer is of consolidative opacity in the right middle lobe. There are hazy groundglass opacities throug hout both lungs.. Mediastinum: There is good visualization of the great vessels of the middle mediastinum. No evidenc e of mediastinal or hilar adenopathy/mass. Coronary artery calcifications are present. Pleurae: There are small bilateral pleural effusions. Axillae: Unremarkable. Bony Structures: Unremarkable. Miscellaneous: The examination was extended to include the upper abdomen, and both adrenal glands ar e normal in size and configuration. The patient is status post splenectomy. CONCLUSION: 1. Small bilateral pleural effusions. 2. The areas of consolidative opacity in the right middle lobe. 3. Groundglass opacities in both lungs which could represent underlying interstitial lung disease. Electronically signed by: Giles Mata MD 07/06/2018 10:24 PM EDT
[2018-07-06 23:21] LABS: ABG Base Excess 7.2 mmol/L (-2-2); ABG PCO2 67 mmHg (38-42); ABG PO2 55 mmHg (61-120)
[2018-07-07 00:25] LABS: ABG Base Excess 7.4 mmol/L (-2-2); ABG PCO2 77 mmHg (38-42); ABG PO2 74 mmHg (61-120)
[2018-07-07] MEDS: Heparin Drip 25,000 UNIT/250 ML BAG IV.CONT PRN (04:00)
[2018-07-07] MEDS: Pregabalin 75 MG Capsule PO SCH ×2 (09:15→21:12)
[2018-07-07] MEDS: Senna/Docusate Sodium 8.6/50 MG Tablet PO SCH ×2 (09:15→21:12)
[2018-07-07] MEDS: Atenolol 50 MG Tablet PO SCH (09:15)
--- NOTE | 2018-07-07 10:34 | P.PNCA ---
Subjective Interval history: C/o being tired. No othopnea. No angina Physical Exam Vital signs: Vital Signs 07/06/18 11:00 07/06/18 12:00 07/06/18 13:00 Temperature 97.9 F Pulse Rate 77 85 78 Respiratory Rate 20 Blood Pressure 164/73 H Pulse Oximetry 95 07/06/18 14:00 07/06/18 15:00 07/06/18 16:00 Temperature 98.6 F Pulse Rate 86 80 73 Respiratory Rate 16 Blood Pressure 136/69 Pulse Oximetry 96 07/06/18 16:53 07/06/18 17:00 07/06/18 18:00 Temperature Pulse Rate 74 82 Respiratory Rate Blood Pressure Pulse Oximetry 96 07/06/18 19:00 07/06/18 20:00 07/06/18 21:00 Temperature 98.1 F Pulse Rate 89 83 88 Respiratory Rate 18 Blood Pressure 170/76 H Pulse Oximetry 95 96 07/06/18 21:29 07/06/18 21:50 07/06/18 22:00 Temperature Pulse Rate 89 88 Respiratory Rate 18 20 Blood Pressure Pulse Oximetry 07/06/18 23:00 07/06/18 23:59 07/07/18 00:00 Temperature 98.6 F Pulse Rate 87 86 Respiratory Rate 16 16 Blood Pressure 154/65 H Pulse Oximetry 98 07/07/18 01:00 07/07/18 02:00 07/07/18 03:00 Temperature Pulse Rate 84 80 82 Respiratory Rate 16 Blood Pressure 131/62 Pulse Oximetry 93 L 07/07/18 03:30 07/07/18 04:00 07/07/18 05:00 Temperature Pulse Rate 84 80 81 Respiratory Rate 18 Blood Pressure Pulse Oximetry 07/07/18 06:00 07/07/18 08:44 07/07/18 10:18 Temperature Pulse Rate 81 90 Respiratory Rate 16 Blood Pressure Pulse Oximetry 96 Intake & Output 07/06/18 07/07/18 07/07/18 18:59 06:59 18:59 Intake Total 1500 / 1500 1220 / 1220 Output Total 500 / 500 1200 / 1200 Balance 1000 / 1000 20 / 20 Weight 92 kg Intake: IV 1000 / 1000 500 / 500 Heparin/D5W 25,000 U/250 mL 25, 250 / 250 000 unit In 250 ml @ Per Protocol IV.CONT TITRATE PRN Rx #:[id number] NS Inj 1,000 ML @ 100 mls/hr IV 1000 / 1000 .CONT .Q10H LINDA Rx#:[id number] Azithromycin Inj 500 MG In NS 250 / 250 Inj 250 ML @ 250 mls/hr IV.SIG Q24H LINDA Rx#:[id number] Oral 500 / 500 720 / 720 Output: Urine 500 / 500 1200 / 1200 Narrative: Morbidly obese NAD Chest: rhonchi CV S1S2 distant RRR Legs: very obese, no calf tenderness or swelling Assessment and Plan - Assessment (1) Elevated troponin Code(s): R74.8 - Abnormal levels of other serum enzymes Status: Acute (2) Lung disease Code(s): J98.4 - Other disorders of lung Status: Acute (3) Morbid obesity Code(s): E66.01 - Morbid (severe) obesity due to excess calories Status: Acute (4) Hypoxia Code(s): R09.02 - Hypoxemia Status: Acute - Plan Troponin signficantly elevated but no angina or EKG changes. No wall motion abnomality on echo. Hold off on cardiac cath due to CKD. Suspect obesity hypoventilation syndrome and chest CT also suggest possible interstitial disease and possible pneumonia. Appreciate Dr. Bah's help. I have her on clopidogrel so I stopped her heparin. She might have a component of distaolic CHF (effusions) and is on furosemide. No BMP but I oredered for tomorrow.
[2018-07-07 12:35] LABS: Hematocrit 24.2 % (35.0-46.0); Hemoglobin 7.7 gm/dL (11.6-15.3); Mean Corpuscular Hemoglobin 32.5 pg (27.0-34.0); Mean Corpuscular Volume 101.4 fL (80.0-100.0); Mean Platelet Volume 11.6 fL (7.0-11.0); Platelet Count 238 th/mm3 (150-450); Red Blood Count 2.38 mil/mm3 (4.00-5.30); Red Cell Distribution Width 16.4 % (11.6-17.2); White Blood Count 14.1 th/mm3 (4.0-11.0)
[2018-07-07 12:54] LABS: Alanine Aminotransferase 13 U/L (10-53); Albumin 2.7 g/dL (3.4-5.0); Anion Gap 4 meq/L (5-15); Aspartate Aminotransferase 13 U/L (15-37); Blood Urea Nitrogen 35 mg/dL (7-18); Calcium 8.4 mg/dL (8.5-10.1); Carbon Dioxide 35.9 meq/L (21.0-32.0); Chloride 100 meq/L (98-107); Glomerular Filtration Rate 26 mL/min (>89); Glucose,Random 90 mg/dL (74-106); Potassium 4.4 meq/L (3.5-5.1); Sodium 140 meq/L (136-145)
[2018-07-07 12:56] LABS: Alkaline Phosphatase 60 U/L (45-117); Total Protein 8.1 g/dL (6.4-8.2)
[2018-07-07 13:09] LABS: Eosinophils 3 % (0-4); Lymphocytes 29 % (9-44); Monocytes 14 % (0-8)
[2018-07-07 13:10] LABS: Platelet Estimate Normal (Normal); Target Cells 2+
[2018-07-07 13:11] LABS: Howell-Jolly Bodies Present
--- NOTE | 2018-07-07 14:26 | P.PNIM ---
Subjective Interval history: Blood gas earlier this morning shows hypoxemic respiratory failure. Patient is acidotic. By the time of my evaluation, she reports her breathing is improved. Physical Exam Vital signs: Vital Signs 07/06/18 15:00 07/06/18 16:00 07/06/18 16:53 Temperature 98.6 F Pulse Rate 80 73 Respiratory Rate 16 Blood Pressure 136/69 Pulse Oximetry 96 96 07/06/18 17:00 07/06/18 18:00 07/06/18 19:00 Temperature 98.1 F Pulse Rate 74 82 89 Respiratory Rate 18 Blood Pressure 170/76 H Pulse Oximetry 95 07/06/18 20:00 07/06/18 21:00 07/06/18 21:29 Temperature Pulse Rate 83 88 89 Respiratory Rate 18 Blood Pressure Pulse Oximetry 96 07/06/18 21:50 07/06/18 22:00 07/06/18 23:00 Temperature 98.6 F Pulse Rate 88 87 Respiratory Rate 20 16 Blood Pressure 154/65 H Pulse Oximetry 98 07/06/18 23:59 07/07/18 00:00 07/07/18 01:00 Temperature Pulse Rate 86 84 Respiratory Rate 16 Blood Pressure Pulse Oximetry 07/07/18 02:00 07/07/18 03:00 07/07/18 03:30 Temperature Pulse Rate 80 82 84 Respiratory Rate 16 18 Blood Pressure 131/62 Pulse Oximetry 93 L 07/07/18 04:00 07/07/18 05:00 07/07/18 06:00 Temperature Pulse Rate 80 81 81 Respiratory Rate Blood Pressure Pulse Oximetry 07/07/18 07:00 07/07/18 08:44 07/07/18 10:18 Temperature 97.8 F Pulse Rate 88 90 Respiratory Rate 20 16 Blood Pressure 155/77 H Pulse Oximetry 93 L 96 07/07/18 11:00 Temperature 97.8 F Pulse Rate 87 Respiratory Rate 18 Blood Pressure 130/59 L Pulse Oximetry 96 Intake & Output 07/06/18 07/07/18 07/07/18 18:59 06:59 18:59 Intake Total 1500 / 1500 1220 / 1220 35 / 35 Output Total 500 / 500 1200 / 1200 Balance 1000 / 1000 20 / 20 35 / 35 Weight 92 kg Intake: IV 1000 / 1000 500 / 500 35 / 35 Heparin/D5W 25,000 U/250 mL 25, 250 / 250 35 / 35 000 unit In 250 ml @ Per Protocol IV.CONT TITRATE PRN Rx #:[id number] NS Inj 1,000 ML @ 100 mls/hr IV 1000 / 1000 .CONT .Q10H LINDA Rx#:[id number] Azithromycin Inj 500 MG In NS 250 / 250 Inj 250 ML @ 250 mls/hr IV.SIG Q24H LINDA Rx#:[id number] Oral 500 / 500 720 / 720 Output: Urine 500 / 500 1200 / 1200 Narrative: GENERAL: Morbidly obese female in no acute distress. Gets short of breath with minimal activity. CARDIOVASCULAR: Normal rate and regular rhythm without significant murmurs, gallops, or rubs. RESPIRATORY: Good respiratory efforts. Markedly diminished breath sounds at the bases bilaterally. Some diffuse rhonchi. GASTROINTESTINAL: Abdomen soft, non-tender, non-distended. Normal active bowel sounds MUSCULOSKELETAL: Extremities without cyanosis, or edema. NEURO: Alert & Oriented x4 to person, place, time, situation. Moves all ext x4 PSYCH: Appropriate mood and affect. Results - Labs CBC & Chem 7: 07/07/18 11:45 07/07/18 11:45 Laboratory Results - last 24 hr 07/06/18 07/06/18 07/07/18 14:34 23:06 00:05 WBC RBC Hgb Hct MCV MCH MCHC RDW Plt Count MPV Prelim Diff (Auto) WBC Differential Seg Neuts % (Manual) Band Neuts % (Manual) Lymphocytes % (Manual) Monocytes % (Manual) Eosinophils % (Manual) Basophils % (Manual) Abs Neuts (Manual) Differential Comment Platelet Estimate Platelet Morphology Target Cells Red-[place] Bodies APTT Puncture Site Right radial Right radial Patient Temperature 98.6 98.6 O2 Saturation 83 L* 89 L* ABG pH 7.32 L 7.27 L* ABG pCO2 67 H* 77 H* ABG pO2 55 L* 74 ABG HCO3 33 H 34 H ABG O2 Content 15.5 16.2 ABG Base Excess 7.2 H 7.4 H ABG Methemoglobin 0.8 1.0 Rocky Test Present Present Hemoglobin 13.3 12.9 Carboxyhemoglobin 1.6 1.6 O2 Delivery Device Nasal cannula Nasal cannula Liter Flow 3.00 4.00 Inspired O2 32 36 Critical Value Yes Yes Sodium Potassium Chloride Carbon Dioxide Anion Gap BUN Creatinine Estimated GFR Random Glucose Calcium Total Bilirubin AST ALT Alkaline Phosphatase Troponin I 0.67 H* Total Protein Albumin 07/07/18 07/07/18 07/07/18 11:45 11:45 11:45 WBC 14.1 H RBC 2.38 L Hgb 7.7 L Hct 24.2 L MCV 101.4 H MCH 32.5 MCHC 32.0 RDW 16.4 Plt Count 238 MPV 11.6 H Prelim Diff (Auto) Manual diff required WBC Differential Manual diff final Seg Neuts % (Manual) 45 Band Neuts % (Manual) 8 H Lymphocytes % (Manual) 29 Monocytes % (Manual) 14 H Eosinophils % (Manual) 3 Basophils % (Manual) 1 Abs Neuts (Manual) 7.5 Differential Comment . Platelet Estimate Normal Platelet Morphology Enlarged H Target Cells 2+ H Red-[place] Bodies Present H APTT 30.3 H D Puncture Site Patient Temperature O2 Saturation ABG pH ABG pCO2 ABG pO2 ABG HCO3 ABG O2 Content ABG Base Excess ABG Methemoglobin [place] Test Hemoglobin Carboxyhemoglobin O2 Delivery Device Liter Flow Inspired O2 Critical Value Sodium 140 Potassium 4.4 Chloride 100 Carbon Dioxide 35.9 H Anion Gap 4 L BUN 35 H Creatinine 2.29 H Estimated GFR 26 L Random Glucose 90 Calcium 8.4 L Total Bilirubin 0.4 AST 13 L ALT 13 Alkaline Phosphatase 60 Troponin I Total Protein 8.1 D Albumin 2.7 L - Imaging Impressions Chest CT 07/06/18 00:00 CONCLUSION: 1. Small bilateral pleural effusions. 2. The areas of consolidative opacity in the right middle lobe. 3. Groundglass opacities in both lungs which could represent underlying interstitial lung disease. Assessment and Plan - Assessment (1) NSTEMI (non-ST elevated myocardial infarction) Code(s): I21.4 - Non-ST elevation (NSTEMI) myocardial infarction Status: Acute (2) Hypoxia Code(s): R09.02 - Hypoxemia Status: Acute (3) Anemia Code(s): D64.9 - Anemia, unspecified Status: Acute (4) Renal insufficiency Code(s): N28.9 - Disorder of kidney and ureter, unspecified Status: Acute (5) CHF (congestive heart failure) Code(s): I50.9 - Heart failure, unspecified Status: Acute - Plan 62-year-old female admitted with acute respiratory failure likely secondary to combination of pneumonia, bilateral pleural effusion from diastolic CHF. CKD. Patient's troponin also elevated on presentation. Acute respiratory failure: Hypoxemia and hypercapnic respiratory failure. Combination of pneumonia, pleural effusion, probable obesity related hypoventilation syndrome -Continue supplemental oxygen. - Treat pneumonia. Appreciate pulmonology following. -Anemia may be contributing as well. Pneumonia: CT scan with right middle lobe consolidation On Zithromax. Add Rocephin. Breathing treatments as needed. Incentive spirometry. Elevated troponins: Likely secondary to CKD. Cardiology following. High risk for heart catheterization given renal failure. Conservative management advised. Plavix per cardiology. Probable diastolic CHF: -Appreciate cardiology following. Continue IV Lasix 40 mg twice daily. Monitor I/O. Anemia: Suspect anemia of chronic disease from CKD. - Hemoglobin dropped to 7.7 today. Given above symptoms and poor cardiovascular reserve. We will transfuse 1 unit of PRBC. -Follow-up H&H in the morning. GI prophylaxis: Stool softener PRN constipation. DVT PPx: SCDs
[2018-07-07] MEDS ORDERED: Sodium Chlor 0.9% Inj 250 ML IV.SIG SCH (17:00)
--- NOTE | 2018-07-07 17:30 | P.PN ---
Subjective Interval history: Has improved today. On o2 3 L. Was on BIPAP last PM for hypercapnia but not able to use it. On Heparin Physical Exam Vital signs: Vital Signs 07/06/18 18:00 07/06/18 19:00 07/06/18 20:00 Temperature 98.1 F Pulse Rate 82 89 83 Respiratory Rate 18 Blood Pressure 170/76 H Pulse Oximetry 95 96 07/06/18 21:00 07/06/18 21:29 07/06/18 21:50 Temperature Pulse Rate 88 89 Respiratory Rate 18 20 Blood Pressure Pulse Oximetry 07/06/18 22:00 07/06/18 23:00 07/06/18 23:59 Temperature 98.6 F Pulse Rate 88 87 Respiratory Rate 16 16 Blood Pressure 154/65 H Pulse Oximetry 98 07/07/18 00:00 07/07/18 01:00 07/07/18 02:00 Temperature Pulse Rate 86 84 80 Respiratory Rate Blood Pressure Pulse Oximetry 07/07/18 03:00 07/07/18 03:30 07/07/18 04:00 Temperature Pulse Rate 82 84 80 Respiratory Rate 16 18 Blood Pressure 131/62 Pulse Oximetry 93 L 07/07/18 05:00 07/07/18 06:00 07/07/18 07:00 Temperature 97.8 F Pulse Rate 81 81 88 Respiratory Rate 20 Blood Pressure 155/77 H Pulse Oximetry 93 L 07/07/18 08:44 07/07/18 10:18 07/07/18 11:00 Temperature 97.8 F Pulse Rate 90 87 Respiratory Rate 16 18 Blood Pressure 130/59 L Pulse Oximetry 96 96 07/07/18 15:00 Temperature 98.3 F Pulse Rate 82 Respiratory Rate 18 Blood Pressure 117/51 L Pulse Oximetry 95 Intake & Output 07/06/18 07/07/18 07/07/18 18:59 06:59 18:59 Intake Total 1500 / 1500 1220 / 1220 35 / 35 Output Total 500 / 500 1200 / 1200 Balance 1000 / 1000 20 / 20 35 / 35 Weight 92 kg Intake: IV 1000 / 1000 500 / 500 35 / 35 Heparin/D5W 25,000 U/250 mL 25, 250 / 250 35 / 35 000 unit In 250 ml @ Per Protocol IV.CONT TITRATE PRN Rx #:[id number] NS Inj 1,000 ML @ 100 mls/hr IV 1000 / 1000 .CONT .Q10H LINDA Rx#:[id number] Azithromycin Inj 500 MG In NS 250 / 250 Inj 250 ML @ 250 mls/hr IV.SIG Q24H LINDA Rx#:[id number] Oral 500 / 500 720 / 720 Output: Urine 500 / 500 1200 / 1200 Narrative: GENERAL: Morbidly obese female in no acute distress. CARDIOVASCULAR: Normal rate and regular rhythm without significant murmurs, gallops, or rubs. RESPIRATORY: Good respiratory efforts.Has wheezes scattered. Markedly diminished breath sounds at the bases bilaterally. GASTROINTESTINAL: Abdomen soft, non-tender, non-distended. Normal active bowel sounds MUSCULOSKELETAL: Extremities without cyanosis, but has mild edema. NEURO: Alert & Oriented x4 to person, place, time, situation. Moves all ext x4 PSYCH: Appropriate mood and affect. Results - Labs CBC & Chem 7: 07/07/18 11:45 07/07/18 11:45 Laboratory Results - last 24 hr 07/06/18 07/07/18 07/07/18 23:06 00:05 11:45 WBC 14.1 H RBC 2.38 L Hgb 7.7 L Hct 24.2 L MCV 101.4 H MCH 32.5 MCHC 32.0 RDW 16.4 Plt Count 238 MPV 11.6 H Prelim Diff (Auto) Manual diff required WBC Differential Manual diff final Seg Neuts % (Manual) 45 Band Neuts % (Manual) 8 H Lymphocytes % (Manual) 29 Monocytes % (Manual) 14 H Eosinophils % (Manual) 3 Basophils % (Manual) 1 Abs Neuts (Manual) 7.5 Differential Comment . Platelet Estimate Normal Platelet Morphology Enlarged H Target Cells 2+ H Red-[place] Bodies Present H APTT Puncture Site Right radial Right radial Patient Temperature 98.6 98.6 O2 Saturation 83 L* 89 L* ABG pH 7.32 L 7.27 L* ABG pCO2 67 H* 77 H* ABG pO2 55 L* 74 ABG HCO3 33 H 34 H ABG O2 Content 15.5 16.2 ABG Base Excess 7.2 H 7.4 H ABG Methemoglobin 0.8 1.0 Rocky Test Present Present Hemoglobin 13.3 12.9 Carboxyhemoglobin 1.6 1.6 O2 Delivery Device Nasal cannula Nasal cannula Liter Flow 3.00 4.00 Inspired O2 32 36 Critical Value Yes Yes Sodium Potassium Chloride Carbon Dioxide Anion Gap BUN Creatinine Estimated GFR Random Glucose Calcium Total Bilirubin AST ALT Alkaline Phosphatase Total Protein Albumin 07/07/18 07/07/18 11:45 11:45 WBC RBC Hgb Hct MCV MCH MCHC RDW Plt Count MPV Prelim Diff (Auto) WBC Differential Seg Neuts % (Manual) Band Neuts % (Manual) Lymphocytes % (Manual) Monocytes % (Manual) Eosinophils % (Manual) Basophils % (Manual) Abs Neuts (Manual) Differential Comment Platelet Estimate Platelet Morphology Target Cells Red[place] Bodies APTT 30.3 H D Puncture Site Patient Temperature O2 Saturation ABG pH ABG pCO2 ABG pO2 ABG HCO3 ABG O2 Content ABG Base Excess ABG Methemoglobin [place] Test Hemoglobin Carboxyhemoglobin O2 Delivery Device Liter Flow Inspired O2 Critical Value Sodium 140 Potassium 4.4 Chloride 100 Carbon Dioxide 35.9 H Anion Gap 4 L BUN 35 H Creatinine 2.29 H Estimated GFR 26 L Random Glucose 90 Calcium 8.4 L Total Bilirubin 0.4 AST 13 L ALT 13 Alkaline Phosphatase 60 Total Protein 8.1 D Albumin 2.7 L - Imaging Impressions Chest CT 07/06/18 00:00 CONCLUSION: 1. Small bilateral pleural effusions. 2. The areas of consolidative opacity in the right middle lobe. 3. Groundglass opacities in both lungs which could represent underlying interstitial lung disease. Assessment and Plan - Assessment (1) EILEEN (obstructive sleep apnea) Code(s): G47.33 - Obstructive sleep apnea (adult) (pediatric) Status: Acute (2) Hypercapnia Code(s): R06.89 - Other abnormalities of breathing Status: Acute (3) Respiratory failure Code(s): J96.90 - Respiratory failure, unspecified, unspecified whether with hypoxia or hypercapnia Status: Acute (4) Non-ST elevation [place] (NSTEMI) Code(s): I21.4 - Non-ST elevation (NSTEMI) myocardial infarction Status: Acute (5) CHF (congestive heart failure) Code(s): I50.9 - Heart failure, unspecified Status: Acute (6) NSTEMI (non-ST elevated myocardial infarction) Code(s): I21.4 - Non-ST elevation (NSTEMI) myocardial infarction Status: Acute (7) Hypoxia Code(s): R09.02 - Hypoxemia Status: Acute (8) Anemia Code(s): D64.9 - Anemia, unspecified Status: Acute (9) Renal insufficiency Code(s): N28.9 - Disorder of kidney and ureter, unspecified Status: Acute (10) Elevated troponin Code(s): R74.8 - Abnormal levels of other serum enzymes Status: Acute - Plan 1. Adv O2 2 L daytime. 2. Use BIPAP 12/5 CM , FIO2 28 % at HS 3. Continue Rocephin and Zithromax for pneumonia. 4. Continue Duonebs qid. 5. Sleep study as OP. 6. Add Solumedrol 40 mg IV BID 7. CBC , BMP in am
[2018-07-07] MEDS: Morphine Inj 4 MG/ML Vial IV.PUSH PRN (21:11)
[2018-07-07] MEDS: MethylPREDNISolone Sod Succinate Inj 40 MG/ML Vial IV.PUSH SCH (21:12)
[2018-07-07] MEDS: Azithromycin Inj 500 MG in Sodium Chlor 0.9% Inj 250 ML IV.SIG SCH (21:13)
[2018-07-08] MEDS ORDERED: ALPRAZolam 0.25 MG Tablet PO ONE (00:45)
--- NOTE | 2018-07-08 09:35 | P.PNCA ---
Subjective Interval history: No angina. SOB a little better Physical Exam Vital signs: Vital Signs 07/07/18 10:00 07/07/18 10:18 07/07/18 11:00 Temperature 97.8 F Pulse Rate 86 90 87 Respiratory Rate 16 18 Blood Pressure 130/59 L Pulse Oximetry 96 07/07/18 12:00 07/07/18 13:00 07/07/18 14:00 Temperature Pulse Rate 92 H 82 80 Respiratory Rate Blood Pressure Pulse Oximetry 07/07/18 15:00 07/07/18 16:00 07/07/18 17:00 Temperature 98.3 F Pulse Rate 80 82 80 Respiratory Rate 18 Blood Pressure 117/51 L Pulse Oximetry 95 07/07/18 18:00 07/07/18 19:00 07/07/18 20:00 Temperature 99.6 F Pulse Rate 84 92 H 91 H Respiratory Rate 18 Blood Pressure 151/69 H Pulse Oximetry 94 L 07/07/18 20:59 07/07/18 21:00 07/07/18 21:40 Temperature Pulse Rate 90 90 96 H Respiratory Rate 18 16 Blood Pressure 126/77 Pulse Oximetry 98 07/07/18 22:00 07/07/18 23:00 07/07/18 23:45 Temperature 98.8 F Pulse Rate 92 H 88 Respiratory Rate 20 16 Blood Pressure 118/52 L Pulse Oximetry 92 L 07/08/18 00:00 07/08/18 01:00 07/08/18 01:10 Temperature Pulse Rate 81 86 Respiratory Rate Blood Pressure Pulse Oximetry 78 L 07/08/18 01:19 07/08/18 01:23 07/08/18 01:43 Temperature 98.8 F 98.7 F Pulse Rate 87 82 Respiratory Rate 18 Blood Pressure 116/57 L 103/45 L Pulse Oximetry 90 L 90 L 90 L 07/08/18 02:00 07/08/18 02:02 07/08/18 03:00 Temperature Pulse Rate 84 78 Respiratory Rate 18 Blood Pressure Pulse Oximetry 98 62 L 07/08/18 03:47 07/08/18 04:00 07/08/18 05:00 Temperature Pulse Rate 92 H 77 78 Respiratory Rate 21 Blood Pressure Pulse Oximetry 07/08/18 06:00 07/08/18 06:09 07/08/18 07:00 Temperature 97.7 F Pulse Rate 76 77 Respiratory Rate 20 Blood Pressure 111/57 L Pulse Oximetry 95 97 07/08/18 09:04 Temperature Pulse Rate Respiratory Rate Blood Pressure Pulse Oximetry 100 Intake & Output 07/07/18 07/08/18 07/08/18 18:59 06:59 18:59 Intake Total 615 / 615 860 / 860 Output Total 750 / 750 650 / 650 Balance -135 / -135 210 / 210 Weight 131.2 kg Intake: IV 135 / 135 500 / 500 Heparin/D5W 25,000 U/250 mL 25, 35 / 35 000 unit In 250 ml @ Per Protocol IV.CONT TITRATE PRN Rx #:[id number] Azithromycin Inj 500 MG In NS 250 / 250 Inj 250 ML @ 250 mls/hr IV.SIG Q24H LINDA Rx#:[id number] NS Inj 250 ML @ 15 mls/hr IV. 250 / 250 SIG ONCE LINDA Rx#:[id number] Rocephin Inj 1,000 MG In NS Inj 100 / 100 100 ML @ 200 mls/hr IV.SIG Q24H LINDA Rx#:[id number] Oral 480 / 480 360 / 360 Intake (Blood Product) Amt 0 / 0 Rbc As-3 Leukoreduced Unit 0 / 0 [id number] Output: Urine 750 / 750 650 / 650 Narrative: GENERAL: Morbidly obese female in no acute distress. CARDIOVASCULAR: Normal rate and regular rhythm without significant murmurs, gallops, or rubs. RESPIRATORY: Good respiratory efforts. Few rhonchi at bases. Markedly diminished breath sounds at the bases bilaterally. GASTROINTESTINAL: Abdomen soft, non-tender, non-distended. Normal active bowel sounds MUSCULOSKELETAL: Extremities without cyanosis, but has mild edema. NEURO: Alert & Oriented x4 to person, place, time, situation. Moves all ext x4 PSYCH: Appropriate mood and affect. Assessment and Plan - Assessment (1) Elevated troponin Code(s): R74.8 - Abnormal levels of other serum enzymes Status: Acute (2) Lung disease Code(s): J98.4 - Other disorders of lung Status: Acute (3) Morbid obesity Code(s): E66.01 - Morbid (severe) obesity due to excess calories Status: Acute (4) Hypoxia Code(s): R09.02 - Hypoxemia Status: Acute - Plan Troponin signficantly elevated but no angina or EKG changes. No wall motion abnomality on echo. Hold off on cardiac cath due to CKD. Suspect obesity hypoventilation syndrome and chest CT also suggest possible interstitial disease and possible pneumonia. Appreciate Dr. Bah's help. I have her on clopidogrel so I stopped her heparin. She might have a component of distaolic CHF (effusions) and is on furosemide. No BMP but I oredered for tomorrow. 07/08/18. No angina or cardiac instability. Plan medical management.
[2018-07-08] MEDS: MethylPREDNISolone Sod Succinate Inj 40 MG/ML Vial IV.PUSH SCH ×2 (10:10→22:10)
[2018-07-08] MEDS: Atenolol 50 MG Tablet PO SCH (10:11)
[2018-07-08] MEDS: Senna/Docusate Sodium 8.6/50 MG Tablet PO SCH ×2 (10:11→22:06)
[2018-07-08] MEDS: Pregabalin 75 MG Capsule PO SCH ×2 (10:12→22:06)
[2018-07-08 12:32] LABS: Hemoglobin 9.1 gm/dL (11.6-15.3); Mean Corpuscular HGB Conc 32.3 % (32.0-36.0); Mean Corpuscular Hemoglobin 32.1 pg (27.0-34.0); Mean Corpuscular Volume 99.3 fL (80.0-100.0); Mean Platelet Volume 11.5 fL (7.0-11.0); Platelet Count 236 th/mm3 (150-450); Red Blood Count 2.82 mil/mm3 (4.00-5.30); Red Cell Distribution Width 17.1 % (11.6-17.2); White Blood Count 12.1 th/mm3 (4.0-11.0)
[2018-07-08 12:39] LABS: Calcium 8.5 mg/dL (8.5-10.1); Carbon Dioxide 29.5 meq/L (21.0-32.0); Potassium 5.3 meq/L (3.5-5.1)
--- NOTE | 2018-07-08 13:24 | P.PNIM ---
Subjective Interval history: Patient reports she is feeling better today. Breathing more comfortably. However is still requiring oxygen. Physical Exam Vital signs: Vital Signs 07/07/18 14:00 07/07/18 15:00 07/07/18 16:00 Temperature 98.3 F Pulse Rate 80 80 82 Respiratory Rate 18 Blood Pressure 117/51 L Pulse Oximetry 95 07/07/18 17:00 07/07/18 18:00 07/07/18 19:00 Temperature 99.6 F Pulse Rate 80 84 92 H Respiratory Rate 18 Blood Pressure 151/69 H Pulse Oximetry 94 L 07/07/18 20:00 07/07/18 20:59 07/07/18 21:00 Temperature Pulse Rate 91 H 90 90 Respiratory Rate 18 Blood Pressure Pulse Oximetry 07/07/18 21:40 07/07/18 22:00 07/07/18 23:00 Temperature 98.8 F Pulse Rate 96 H 92 H 88 Respiratory Rate 16 20 Blood Pressure 126/77 118/52 L Pulse Oximetry 98 92 L 07/07/18 23:45 07/08/18 00:00 07/08/18 01:00 Temperature Pulse Rate 81 86 Respiratory Rate 16 Blood Pressure Pulse Oximetry 07/08/18 01:10 07/08/18 01:19 07/08/18 01:23 Temperature 98.8 F Pulse Rate 87 Respiratory Rate Blood Pressure 116/57 L Pulse Oximetry 78 L 90 L 90 L 07/08/18 01:43 07/08/18 02:00 07/08/18 02:02 Temperature 98.7 F Pulse Rate 82 84 Respiratory Rate 18 Blood Pressure 103/45 L Pulse Oximetry 90 L 98 07/08/18 03:00 07/08/18 03:47 07/08/18 04:00 Temperature Pulse Rate 78 92 H 77 Respiratory Rate 18 21 Blood Pressure Pulse Oximetry 62 L 07/08/18 05:00 07/08/18 06:00 07/08/18 06:09 Temperature Pulse Rate 78 76 Respiratory Rate Blood Pressure Pulse Oximetry 95 07/08/18 07:00 07/08/18 09:04 Temperature 97.7 F Pulse Rate 77 Respiratory Rate 20 Blood Pressure 111/57 L Pulse Oximetry 97 100 Intake & Output 07/07/18 07/08/18 07/08/18 18:59 06:59 18:59 Intake Total 615 / 615 860 / 860 Output Total 750 / 750 650 / 650 Balance -135 / -135 210 / 210 Weight 131.2 kg Intake: IV 135 / 135 500 / 500 Heparin/D5W 25,000 U/250 mL 25, 35 / 35 000 unit In 250 ml @ Per Protocol IV.CONT TITRATE PRN Rx #:[id number] Azithromycin Inj 500 MG In NS 250 / 250 Inj 250 ML @ 250 mls/hr IV.SIG Q24H LINDA Rx#:[id number] NS Inj 250 ML @ 15 mls/hr IV. 250 / 250 SIG ONCE LINDA Rx#:[id number] Rocephin Inj 1,000 MG In NS Inj 100 / 100 100 ML @ 200 mls/hr IV.SIG Q24H LINDA Rx#:[id number] Oral 480 / 480 360 / 360 Intake (Blood Product) Amt 0 / 0 Rbc As-3 Leukoreduced Unit 0 / 0 [id number] Output: Urine 750 / 750 650 / 650 Narrative: GENERAL: Morbidly obese female in no acute distress. CARDIOVASCULAR: Normal rate and regular rhythm without significant murmurs, gallops, or rubs. RESPIRATORY: Good respiratory efforts. Few crackles at bases. Diminished breath sounds at the bases bilaterally. GASTROINTESTINAL: Abdomen soft, non-tender, non-distended. Normal active bowel sounds MUSCULOSKELETAL: Extremities without cyanosis, but has mild edema. NEURO: Alert & Oriented x4 to person, place, time, situation. Moves all ext x4 PSYCH: Appropriate mood and affect. Results - Labs CBC & Chem 7: 07/08/18 11:58 07/08/18 11:58 Laboratory Results - last 24 hr 07/07/18 07/08/18 07/08/18 18:01 11:58 11:58 WBC 12.1 H RBC 2.82 L Hgb 9.1 L Hct 28.0 L MCV 99.3 MCH 32.1 MCHC 32.3 RDW 17.1 Plt Count 236 MPV 11.5 H Sodium 136 Potassium 5.3 H D Chloride 97 L Carbon Dioxide 29.5 Anion Gap 10 BUN 43 H Creatinine 2.92 H Estimated GFR 20 L Random Glucose 147 H Calcium 8.5 Blood Type O Positive Blood Type Recheck Required Antibody Screen Negative MTS Gel Crossmatch See Detail Assessment and Plan - Assessment (1) NSTEMI (non-ST elevated myocardial infarction) Code(s): I21.4 - Non-ST elevation (NSTEMI) myocardial infarction Status: Acute (2) Hypoxia Code(s): R09.02 - Hypoxemia Status: Acute (3) Anemia Code(s): D64.9 - Anemia, unspecified Status: Acute (4) Renal insufficiency Code(s): N28.9 - Disorder of kidney and ureter, unspecified Status: Acute (5) CHF (congestive heart failure) Code(s): I50.9 - Heart failure, unspecified Status: Acute - Plan 62-year-old female admitted with acute respiratory failure likely secondary to combination of pneumonia, bilateral pleural effusion from diastolic CHF. CKD. Patient's troponin also elevated on presentation. Acute respiratory failure: Hypoxemia and hypercapnic respiratory failure. Combination of pneumonia, pleural effusion, probable obesity related hypoventilation syndrome -Continue supplemental oxygen. - Treat pneumonia. Appreciate pulmonology following. On Solu-Medrol -Anemia contributing as well. -Will likely need home oxygen. Walk test ordered. Pneumonia: CT scan with right middle lobe consolidation On Zithromax. Add Rocephin. Breathing treatments as needed. Incentive spirometry. Elevated troponins: Likely secondary to CKD. Cardiology following. High risk for heart catheterization given renal failure. Conservative management advised. Plavix per cardiology. Probable diastolic CHF: -Appreciate cardiology following. Has been on IV Lasix 40 mg twice daily. Transition to oral Lasix due to worsening renal functions. Monitor I/O. Anemia: Suspect anemia of chronic disease from CKD. -Status post 1 unit of PRBC transfusion. H&H stable today. Follow-up H&H in the morning. Chronic kidney disease: - Renal function slightly worse. Transition to oral Lasix. GI prophylaxis: Stool softener PRN constipation. DVT PPx: SCDs Discharge Planning: Physical therapy to evaluate. May need SNF versus home health.
--- NOTE | 2018-07-08 15:27 | P.PN ---
Subjective Interval history: She is up and eating lunch. used BIPAP last PM for 1 HR. On O2 4L. Has good output with lasix. Physical Exam Vital signs: Vital Signs 07/07/18 16:00 07/07/18 17:00 07/07/18 18:00 Temperature Pulse Rate 82 80 84 Respiratory Rate Blood Pressure Pulse Oximetry 07/07/18 19:00 07/07/18 20:00 07/07/18 20:59 Temperature 99.6 F Pulse Rate 92 H 91 H 90 Respiratory Rate 18 18 Blood Pressure 151/69 H Pulse Oximetry 94 L 07/07/18 21:00 07/07/18 21:40 07/07/18 22:00 Temperature Pulse Rate 90 96 H 92 H Respiratory Rate 16 Blood Pressure 126/77 Pulse Oximetry 98 07/07/18 23:00 07/07/18 23:45 07/08/18 00:00 Temperature 98.8 F Pulse Rate 88 81 Respiratory Rate 20 16 Blood Pressure 118/52 L Pulse Oximetry 92 L 07/08/18 01:00 07/08/18 01:10 07/08/18 01:19 Temperature 98.8 F Pulse Rate 86 87 Respiratory Rate Blood Pressure 116/57 L Pulse Oximetry 78 L 90 L 07/08/18 01:23 07/08/18 01:43 07/08/18 02:00 Temperature 98.7 F Pulse Rate 82 84 Respiratory Rate 18 Blood Pressure 103/45 L Pulse Oximetry 90 L 90 L 07/08/18 02:02 07/08/18 03:00 07/08/18 03:47 Temperature Pulse Rate 78 92 H Respiratory Rate 18 21 Blood Pressure Pulse Oximetry 98 62 L 07/08/18 04:00 07/08/18 05:00 07/08/18 06:00 Temperature Pulse Rate 77 78 76 Respiratory Rate Blood Pressure Pulse Oximetry 07/08/18 06:09 07/08/18 07:00 07/08/18 09:04 Temperature 97.7 F Pulse Rate 77 Respiratory Rate 20 Blood Pressure 111/57 L Pulse Oximetry 95 97 100 07/08/18 11:00 Temperature 98.0 F Pulse Rate 78 Respiratory Rate 18 Blood Pressure 128/58 L Pulse Oximetry 100 Intake & Output 07/07/18 07/08/18 07/08/18 18:59 06:59 18:59 Intake Total 615 / 615 860 / 860 Output Total 750 / 750 650 / 650 Balance -135 / -135 210 / 210 Weight 131.2 kg Intake: IV 135 / 135 500 / 500 Heparin/D5W 25,000 U/250 mL 25, 35 / 35 000 unit In 250 ml @ Per Protocol IV.CONT TITRATE PRN Rx #:[id number] Azithromycin Inj 500 MG In NS 250 / 250 Inj 250 ML @ 250 mls/hr IV.SIG Q24H LINDA Rx#:[id number] NS Inj 250 ML @ 15 mls/hr IV. 250 / 250 SIG ONCE LINDA Rx#:[id number] Rocephin Inj 1,000 MG In NS Inj 100 / 100 100 ML @ 200 mls/hr IV.SIG Q24H LINDA Rx#:[id number] Oral 480 / 480 360 / 360 Intake (Blood Product) Amt 0 / 0 Rbc As-3 Leukoreduced Unit 0 / 0 [id number] Output: Urine 750 / 750 650 / 650 Narrative: GENERAL: Morbidly obese female in no acute distress. CARDIOVASCULAR: Normal rate and regular rhythm without significant murmurs, gallops, or rubs. RESPIRATORY: Good respiratory efforts. Few crackles at bases. Markedly diminished breath sounds at the bases bilaterally. GASTROINTESTINAL: Abdomen soft, non-tender, non-distended. Normal active bowel sounds MUSCULOSKELETAL: Extremities without cyanosis, but has mild edema. NEURO: Alert & Oriented x4 to person, place, time, situation. Moves all ext x4 PSYCH: Appropriate mood and affect. Results - Labs CBC & Chem 7: 07/08/18 11:58 07/08/18 11:58 Laboratory Results - last 24 hr 07/07/18 07/08/18 07/08/18 18:01 11:58 11:58 WBC 12.1 H RBC 2.82 L Hgb 9.1 L Hct 28.0 L MCV 99.3 MCH 32.1 MCHC 32.3 RDW 17.1 Plt Count 236 MPV 11.5 H Sodium 136 Potassium 5.3 H D Chloride 97 L Carbon Dioxide 29.5 Anion Gap 10 BUN 43 H Creatinine 2.92 H Estimated GFR 20 L Random Glucose 147 H Calcium 8.5 Blood Type O Positive Blood Type Recheck Required Antibody Screen Negative MTS Gel Crossmatch See Detail Assessment and Plan - Assessment (1) EILEEN (obstructive sleep apnea) Code(s): G47.33 - Obstructive sleep apnea (adult) (pediatric) Status: Acute (2) Hypercapnia Code(s): R06.89 - Other abnormalities of breathing Status: Acute (3) Respiratory failure Code(s): J96.90 - Respiratory failure, unspecified, unspecified whether with hypoxia or hypercapnia Status: Acute (4) Non-ST elevation [place] (NSTEMI) Code(s): I21.4 - Non-ST elevation (NSTEMI) myocardial infarction Status: Acute (5) CHF (congestive heart failure) Code(s): I50.9 - Heart failure, unspecified Status: Acute (6) NSTEMI (non-ST elevated myocardial infarction) Code(s): I21.4 - Non-ST elevation (NSTEMI) myocardial infarction Status: Acute (7) Hypoxia Code(s): R09.02 - Hypoxemia Status: Acute (8) Anemia Code(s): D64.9 - Anemia, unspecified Status: Acute (9) Renal insufficiency Code(s): N28.9 - Disorder of kidney and ureter, unspecified Status: Acute (10) Elevated troponin Code(s): R74.8 - Abnormal levels of other serum enzymes Status: Acute - Plan 1. Adv O2 2 L daytime. 2. Use BIPAP 12/5 CM , FIO2 28 % at HS 3. Continue Rocephin and Zithromax for pneumonia. 4. Continue Duonebs qid. 5. Sleep study as OP. 6. Add Solumedrol 40 mg IV BID 7. Up with help.
[2018-07-08] MEDS ORDERED: ALPRAZolam 0.25 MG Tablet PO PRN (20:35)
[2018-07-08] MEDS: Azithromycin Inj 500 MG in Sodium Chlor 0.9% Inj 250 ML IV.SIG SCH (22:06)
--- NOTE | 2018-07-09 04:50 | XR ---
EXAM DATE: 07/09/2018 4:27 AM EDT AGE/SEX: 62 years / Female INDICATIONS: Shortness of breath, possible pulmonary disease. CLINICAL DATA: This is the patient's subsequent encounter. Patient reports that signs and symptoms h ave been present for 4 - 6 days and indicates a pain score of 0/10. MEDICAL/SURGICAL HISTORY: . Renal insufficiency, chronic. Congestive heart failure. Anemia. Hy pertension. Splenectomy. COMPARISON: [facility] [place] 1V SINGLE AP, 07/05/2018. . FINDINGS: A single AP view of the chest demonstrates the lungs to be symmetrically aerated without evidence of mass, infiltrate or effusion. Top normal heart size. Comment or vascular engorgement. Osseous structu res are intact. CONCLUSION: Top normal heart size with mild pulmonary vascular engorgement. No infiltrates or effusions on the cu rrent study. Electronically signed by: Brannon Manzano MD 07/09/2018 4:48 AM EDT
[2018-07-09 06:41] LABS: Hematocrit 25.6 % (35.0-46.0); Hemoglobin 8.1 gm/dL (11.6-15.3); Mean Corpuscular HGB Conc 31.5 % (32.0-36.0); Mean Corpuscular Hemoglobin 31.5 pg (27.0-34.0); Mean Corpuscular Volume 100.1 fL (80.0-100.0); Mean Platelet Volume 11.6 fL (7.0-11.0); Platelet Count 224 th/mm3 (150-450); Red Blood Count 2.56 mil/mm3 (4.00-5.30); Red Cell Distribution Width 16.6 % (11.6-17.2); White Blood Count 11.2 th/mm3 (4.0-11.0)
[2018-07-09 06:56] LABS: Calcium 8.5 mg/dL (8.5-10.1); Carbon Dioxide 33.3 meq/L (21.0-32.0); Potassium 5.2 meq/L (3.5-5.1)
[2018-07-09 08:59] VITALS: BP 152/76; TEMP 98
[2018-07-09] MEDS ORDERED: Furosemide 40 MG Tablet PO SCH (09:00)
[2018-07-09 10:11] VITALS: RESP 16
[2018-07-09] MEDS: Atenolol 50 MG Tablet PO SCH (10:34)
[2018-07-09] MEDS: Senna/Docusate Sodium 8.6/50 MG Tablet PO SCH (10:34)
[2018-07-09] MEDS: Pregabalin 75 MG Capsule PO SCH (10:34)
[2018-07-09] MEDS: MethylPREDNISolone Sod Succinate Inj 40 MG/ML Vial IV.PUSH SCH (10:35)
[2018-07-09] MEDS: Morphine Inj 4 MG/ML Vial IV.PUSH PRN (10:35)
--- NOTE | 2018-07-09 12:58 | P.PN ---
Subjective Interval history: She is better. Refuses BIPAP or CPAP. Good output. leg edema is less. Physical Exam Vital signs: Vital Signs 07/08/18 13:00 07/08/18 14:00 07/08/18 15:00 Temperature 89.2 F L Pulse Rate 78 76 78 Respiratory Rate 20 Blood Pressure 128/52 L Pulse Oximetry 92 L Pulse Oximetry [Resting on Room Air] Pulse Oximetry [Resting with Oxygen] 07/08/18 15:41 07/08/18 15:42 07/08/18 15:51 Temperature Pulse Rate 79 Respiratory Rate 20 Blood Pressure Pulse Oximetry 96 Pulse Oximetry [Resting on Room Air] 87 L Pulse Oximetry [Resting with Oxygen] 96 07/08/18 16:00 07/08/18 17:00 07/08/18 18:00 Temperature Pulse Rate 80 80 84 Respiratory Rate Blood Pressure Pulse Oximetry Pulse Oximetry [Resting on Room Air] Pulse Oximetry [Resting with Oxygen] 07/08/18 19:00 07/08/18 20:00 07/08/18 21:00 Temperature Pulse Rate 88 82 82 Respiratory Rate 16 Blood Pressure 143/63 H Pulse Oximetry 91 L 93 L Pulse Oximetry [Resting on Room Air] Pulse Oximetry [Resting with Oxygen] 07/08/18 21:02 07/08/18 22:00 07/08/18 23:00 Temperature Pulse Rate 84 86 86 Respiratory Rate 18 16 Blood Pressure 117/57 L Pulse Oximetry 95 Pulse Oximetry [Resting on Room Air] Pulse Oximetry [Resting with Oxygen] 07/09/18 01:00 07/09/18 02:00 07/09/18 03:00 Temperature Pulse Rate 82 84 76 Respiratory Rate 16 Blood Pressure Pulse Oximetry 96 Pulse Oximetry [Resting on Room Air] Pulse Oximetry [Resting with Oxygen] 07/09/18 03:04 07/09/18 04:00 07/09/18 05:00 Temperature Pulse Rate 78 83 78 Respiratory Rate 16 Blood Pressure Pulse Oximetry Pulse Oximetry [Resting on Room Air] Pulse Oximetry [Resting with Oxygen] 07/09/18 06:00 07/09/18 07:00 07/09/18 10:06 Temperature 98.0 F Pulse Rate 78 78 86 Respiratory Rate 14 16 Blood Pressure 152/76 H Pulse Oximetry 95 94 L Pulse Oximetry [Resting on Room Air] Pulse Oximetry [Resting with Oxygen] Intake & Output 07/08/18 07/09/18 07/09/18 18:59 06:59 18:59 Intake Total 720 / 720 710 / 710 Output Total 300 / 300 Balance 720 / 720 410 / 410 Weight 131 kg Intake: IV 350 / 350 Azithromycin Inj 500 MG In NS 250 / 250 Inj 250 ML @ 250 mls/hr IV.SIG Q24H LINDA Rx#:[id number] Rocephin Inj 1,000 MG In NS Inj 100 / 100 100 ML @ 200 mls/hr IV.SIG Q24H LINDA Rx#:[id number] Oral 720 / 720 360 / 360 Output: Urine 300 / 300 Other: # Voids 2 Narrative: GENERAL: Morbidly obese female in no acute distress. CARDIOVASCULAR: Normal rate and regular rhythm without significant murmurs, gallops, or rubs. RESPIRATORY: Good respiratory efforts. Few crackles at bases.Occ wheeze. Diminished breath sounds at the bases bilaterally. GASTROINTESTINAL: Abdomen soft, non-tender, non-distended. Normal active bowel sounds MUSCULOSKELETAL: Extremities without cyanosis, but has mild edema. NEURO: Alert & Oriented x4 to person, place, time, situation. Moves all ext x4 PSYCH: Appropriate mood and affect. Results - Labs CBC & Chem 7: 07/09/18 05:57 07/09/18 05:57 Laboratory Results - last 24 hr 07/09/18 07/09/18 05:57 05:57 WBC 11.2 H RBC 2.56 L Hgb 8.1 L Hct 25.6 L MCV 100.1 H MCH 31.5 MCHC 31.5 L RDW 16.6 Plt Count 224 MPV 11.6 H Sodium 137 Potassium 5.2 H Chloride 98 Carbon Dioxide 33.3 H Anion Gap 6 BUN 61 H Creatinine 3.27 H Estimated GFR 17 L Random Glucose 168 H Calcium 8.5 - Imaging Impressions Chest X-Ray 07/09/18 00:00 CONCLUSION: Top normal heart size with mild pulmonary vascular engorgement. No infiltrates or effusions on the current study. Assessment and Plan - Assessment (1) EILEEN (obstructive sleep apnea) Code(s): G47.33 - Obstructive sleep apnea (adult) (pediatric) Status: Acute (2) Hypercapnia Code(s): R06.89 - Other abnormalities of breathing Status: Acute (3) Respiratory failure Code(s): J96.90 - Respiratory failure, unspecified, unspecified whether with hypoxia or hypercapnia Status: Acute (4) Non-ST elevation [place] (NSTEMI) Code(s): I21.4 - Non-ST elevation (NSTEMI) myocardial infarction Status: Acute (5) CHF (congestive heart failure) Code(s): I50.9 - Heart failure, unspecified Status: Acute (6) NSTEMI (non-ST elevated myocardial infarction) Code(s): I21.4 - Non-ST elevation (NSTEMI) myocardial infarction Status: Acute (7) Hypoxia Code(s): R09.02 - Hypoxemia Status: Acute (8) Anemia Code(s): D64.9 - Anemia, unspecified Status: Acute (9) Renal insufficiency Code(s): N28.9 - Disorder of kidney and ureter, unspecified Status: Acute (10) Elevated troponin Code(s): R74.8 - Abnormal levels of other serum enzymes Status: Acute - Plan 1. Adv O2 2 L daytime. 2. Use BIPAP 12/5 CM , FIO2 28 % at HS 3. Continue antibiotics and switch to PO ceftin 500 mg BID X 7 days 4. Continue Duonebs tid. 5. Sleep study as OP. 6. D/C Solumedrol 7. Up with help. 8. Home per Dr Sawyer
--- NOTE | 2018-07-09 13:11 | P.DS ---
Date of admission: 07/06/18 00:18 Primary care physician: UNKNOWN Brief History from admission: HPI from the admitting physician: This is a 62-year-old female with a PMH of HTN, Hodgkin's Disease, Gout, Anemia , CHF (Echo 05/09/2018 with EF 55-60%) and Hypothyroidism who presented to the ER w/ complaints of SOB. States she felt like she was having a "panic attack". Denies fever, chills, chest pain or cough. On arrival, BP 146/69, HR 86, O2 sat 85% on RA, Afebrile. WBC 13.6. Hemoglobin 8.8, previously 7.5 on 2017. INR 1.1. Creatinine 2.27, previously 1.94 on 05/11/2018. Troponin 0 0.87. BNP 419. CXR with cardiomegaly and interstitial prominence characteristic of vascular congestion or volume overload. S/p Lasix 40mg IV in ER and started on Heparin gtt. Does not follow w/ Boilermaker Fitter as outpatient. Update on the day of discharge: Patient reports she is feeling great. She requests to go home. DS: Diagnosis - Discharge Diagnosis (1) NSTEMI (non-ST elevated myocardial infarction) Status: Acute (2) Hypoxia Status: Acute (3) Anemia Status: Acute (4) Renal insufficiency Status: Acute (5) CHF (congestive heart failure) Status: Acute DS: Medications - Discharge Medications Prescriptions: cefuroxime axetil 500 mg PO Q12H #14 tab clopidogrel [Plavix] 75 mg PO DAILY #30 tab pravastatin 40 mg PO DAILY #30 tab DS: Summary Hospital Course: 62-year-old female admitted with acute respiratory failure likely secondary to combination of pneumonia, bilateral pleural effusion from diastolic CHF. CKD. Patient's troponin also elevated on presentation. Evaluation and treatment course detailed below: Acute respiratory failure: Hypoxemia and hypercapnic respiratory failure. Combination of pneumonia, pleural effusion, probable obesity related hypoventilation syndrome -Continue supplemental oxygen. -Patient followed by pulmonology. Pneumonia treated. -She does require home oxygen on discharge. She is to follow-up outpatient with pulmonology for sleep study. She did refuse BiPAP or CPAP at night. Pneumonia: CT scan with right middle lobe consolidation Treated with Zithromax and Rocephin. Patient is discharged on cefuroxime to complete the course of treatment. Elevated troponins: Likely secondary to CKD. Cardiology following. High risk for heart catheterization given renal failure. Conservative management advised. Plavix per cardiology. She was given a prescription on discharge. Probable diastolic CHF: -Appreciate cardiology following. Has been on IV Lasix 40 mg twice daily. Transition to oral Lasix due to worsening renal functions. Monitor I/O. 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 Anemia: Suspect anemia of chronic disease from CKD. -Status post 1 unit of PRBC transfusion. H&H stable Chronic kidney disease: - Renal function slightly worse secondary to Lasix. She is to follow-up outpatient with her jalousie installer. - Time Spent with Patient Total time spent providing and/or coordinating discharge services: Less than 30 minutes - Quality: VTE Deep Vein Thrombosis/Pulmonary Embolism Present on Admission: No Exam Vital signs: Vital Signs 07/08/18 14:00 07/08/18 15:00 07/08/18 15:41 Temperature 89.2 F L Pulse Rate 76 78 79 Respiratory Rate 20 20 Blood Pressure 128/52 L Pulse Oximetry 92 L Pulse Oximetry [Resting on Room Air] Pulse Oximetry [Resting with Oxygen] 07/08/18 15:42 07/08/18 15:51 07/08/18 16:00 Temperature Pulse Rate 80 Respiratory Rate Blood Pressure Pulse Oximetry 96 Pulse Oximetry [Resting on Room Air] 87 L Pulse Oximetry [Resting with Oxygen] 96 07/08/18 17:00 07/08/18 18:00 07/08/18 19:00 Temperature Pulse Rate 80 84 88 Respiratory Rate 16 Blood Pressure 143/63 H Pulse Oximetry 91 L Pulse Oximetry [Resting on Room Air] Pulse Oximetry [Resting with Oxygen] 07/08/18 20:00 07/08/18 21:00 07/08/18 21:02 Temperature Pulse Rate 82 82 84 Respiratory Rate 18 Blood Pressure Pulse Oximetry 93 L Pulse Oximetry [Resting on Room Air] Pulse Oximetry [Resting with Oxygen] 07/08/18 22:00 07/08/18 23:00 07/09/18 01:00 Temperature Pulse Rate 86 86 82 Respiratory Rate 16 Blood Pressure 117/57 L Pulse Oximetry 95 Pulse Oximetry [Resting on Room Air] Pulse Oximetry [Resting with Oxygen] 07/09/18 02:00 07/09/18 03:00 07/09/18 03:04 Temperature Pulse Rate 84 76 78 Respiratory Rate 16 16 Blood Pressure Pulse Oximetry 96 Pulse Oximetry [Resting on Room Air] Pulse Oximetry [Resting with Oxygen] 07/09/18 04:00 07/09/18 05:00 07/09/18 06:00 Temperature Pulse Rate 83 78 78 Respiratory Rate Blood Pressure Pulse Oximetry Pulse Oximetry [Resting on Room Air] Pulse Oximetry [Resting with Oxygen] 07/09/18 07:00 07/09/18 10:06 Temperature 98.0 F Pulse Rate 78 86 Respiratory Rate 14 16 Blood Pressure 152/76 H Pulse Oximetry 95 94 L Pulse Oximetry [Resting on Room Air] Pulse Oximetry [Resting with Oxygen] Intake & Output 07/08/18 07/09/18 07/09/18 18:59 06:59 18:59 Intake Total 720 / 720 710 / 710 Output Total 300 / 300 Balance 720 / 720 410 / 410 Weight 131 kg Intake: IV 350 / 350 Azithromycin Inj 500 MG In NS 250 / 250 Inj 250 ML @ 250 mls/hr IV.SIG Q24H LINDA Rx#:[id number] Rocephin Inj 1,000 MG In NS Inj 100 / 100 100 ML @ 200 mls/hr IV.SIG Q24H LINDA Rx#:[id number] Oral 720 / 720 360 / 360 Output: Urine 300 / 300 Other: # Voids 2 Narrative: GENERAL: Morbidly obese female in no acute distress. CARDIOVASCULAR: Normal rate and regular rhythm without significant murmurs, gallops, or rubs. RESPIRATORY: Good respiratory efforts. Few crackles at bases. Diminished breath sounds at the bases bilaterally. GASTROINTESTINAL: Abdomen soft, non-tender, non-distended. Normal active bowel sounds MUSCULOSKELETAL: Extremities without cyanosis, but has mild edema. NEURO: Alert & Oriented x4 to person, place, time, situation. Moves all ext x4 PSYCH: Appropriate mood and affect. Results Procedures completed during hospitalization: None Labs on day of discharge: Labs from last 24 hours 07/09/18 07/09/18 05:57 05:57 WBC 11.2 H RBC 2.56 L Hgb 8.1 L Hct 25.6 L MCV 100.1 H MCH 31.5 MCHC 31.5 L RDW 16.6 Plt Count 224 MPV 11.6 H Sodium 137 Potassium 5.2 H Chloride 98 Carbon Dioxide 33.3 H Anion Gap 6 BUN 61 H Creatinine 3.27 H Estimated GFR 17 L Random Glucose 168 H Calcium 8.5 - Impressions ITS Impressions Chest CT 07/06/18 00:00 CONCLUSION: 1. Small bilateral pleural effusions. 2. The areas of consolidative opacity in the right middle lobe. 3. Groundglass opacities in both lungs which could represent underlying interstitial lung disease. Chest X-Ray 07/09/18 00:00 CONCLUSION: Top normal heart size with mild pulmonary vascular engorgement. No infiltrates or effusions on the current study. Discharge Plan - Discharge Disposition Patient Disposition: 01 Discharge Home - Discharge Condition Condition: Good - Discharge Order Discharge Orders: Discharge Order (Routine); Ordered 07/09/18 Ordered By: Bridget Sawyer - Discharge Details Anticipated Discharge Date: 07/06/18 - Physicians Team Primary Care Provider: UNKNOWN, Attending Provider: Bridget Sawyer Other Providers: [employer] ; Wilton Lynch MD ; Sammy Alexis MD
[2018-07-09 20:00] VITALS: PULSE 81
[2018-07-09 20:01] VITALS: O2SAT 97
== END 2018-07-09 16:48 | disposition home or self-care (01) ==
LOC: NEPE 19:52 → NEDA 07-06 00:18 → NEDH 07-06 04:18 → HCIS 07-06 10:40
PROVIDERS: ADMIT Family Medicine; ATTEND Family Medicine

== ENCOUNTER 2018-10-03 16:18 | Inpatient (IN) ==
--- NOTE | 2018-10-03 20:00 | ED ---
HPI General Chief Complaint: Back Pain/Injury Stated Complaint: back pain/dr sent Time Seen by Provider: 10/03/18 19:41 Source: patient and old records reviewed Mode of arrival: ambulatory Limitations: no limitations History of Present Illness MD Complaint: Reports back pain Onset (ago): month(s) Duration: Reports progressively worsening Similar Symptoms Previously: Yes Location: Reports lumbar spine Severity: severe Radiation: Reports left leg Severity scale (1-10): 8 Relieving factors: none Exacerbating factors: movement Associated symptoms: Reports denies other symptoms; Denies numbness, loss of sensation in lower extremities, increased urinary urgency, increased urinary frequency, urinary incontinence, fecal incontinence, a change in bowel habits, fever and chills Treatments prior to arrival: Reports other ([place]) Related Data Home Medications Medication Instructions Recorded Confirmed allopurinol 100 mg PO DAILY 07/05/18 10/03/18 amlodipine 10 mg PO DAILY 07/05/18 10/03/18 atenolol 50 mg PO DAILY 07/05/18 10/03/18 calcitriol 0.25 mcg PO DAILY 07/05/18 10/03/18 cyclobenzaprine 10 mg PO BID 07/05/18 10/03/18 furosemide [Lasix] 20 mg PO DAILY 07/05/18 10/03/18 hydrocodone-acetaminophen 1 tab PO Q4H PRN 07/05/18 10/03/18 levothyroxine 137 mcg PO DAILY 07/05/18 10/03/18 omeprazole 20 mg PO BID 07/05/18 10/03/18 pregabalin [Lyrica] 75 mg PO BID 07/05/18 10/03/18 zolpidem 10 mg PO HS 07/05/18 10/03/18 Allergies Allergy/AdvReac Type Severity Reaction Status Date / Time doxycycline Allergy Severe Anaphylaxis Verified 10/03/18 20:08 sulfamethoxazole Allergy Severe Anaphylaxis Verified 10/03/18 20:08 trimethoprim Allergy Severe Anaphylaxis Verified 10/03/18 20:08 Review of Systems ROS: all other systems reviewed are negative [facility] Medical History Medical History CKD (chronic kidney disease) (Acute) Hyperlipemia (Acute) Hypertension (Acute) Surgical History Surgical History History of cholecystectomy (Acute) History of knee replacement, total (Acute) Hx of splenectomy (Acute) Hx of thyroidectomy (Acute) Social History Social History Substance History: No History of Abuse Second Hand Smoke Exposure: No Smoking Status: Former smoker Tobacco Type: Cigarettes How Often Do You Have a Drink Containing Alcohol: Monthly or less Recent Travel in [facility] within the Last 8 Weeks: No Recent Out of Country Travel within the Last 8 Weeks: No Exam Const General: cooperative, healthy appearing, no acute distress and well developed Orientation: alert, awake and oriented x3 HENMT Head: normal to inspection, normocephalic and atraumatic Eyes Alignment and Position: alignment normal Conjunctivae: conjunctivae normal Sclera: sclerae normal EOM: EOM intact bilaterally Neck Neck: normal visual inspection and full ROM Chest Chest: normal inspection of the chest Resp Effort & Inspection: normal respiratory effort and able to speak in complete sentences Cardio Rate: regular rate Rhythm: regular rhythm Back/Spine/Pelvis Cervical Spine: cervical ROM normal Thoracic/Lumbar Spine: pain with thoraco-lumbar ROM and lumbar spinal tenderness Skin General: no rashes or lesions noted and turgor normal Neuro General: alert, awake, oriented x3, moves all extremities and CN's II-XI intact bilaterally Extrem General: normal to inspection and full ROM Psych Appearance: grossly normal Mental Status: mental status grossly normal Speech and Movement: speech and movement normal Mood: congruent mood Affect: normal affect Attitude: cooperative Thought Process: normal Thought Content: normal Judgment: judgment good Course Consultations Consultation #1: My community mental health social worker has been able to locate this patient's primary care physician. I have spoken with Dr. Rodriguez who tells me that the MRI is suggestive of osteomyelitis at the L3/L4 level. Dr. Rodriguez subsequently spoke with Dr. Saira Boothe with infectious disease. Dr. Boothe suggested that the patient be sent immediately here for IV antibiotics and a biopsy of her back. I have subsequently ordered a sed rate, CRP, blood cultures and IV Zosyn and IV vancomycin. Time: 21:16 Consultation #2: Dr. Fink will admit the patient. Time: 21:18 Initial Documented Vital Signs Temperature 99.6 F 10/03/18 16:32 Pulse Rate 89 10/03/18 16:32 Respiratory Rate 23 10/03/18 16:32 Blood Pressure 119/60 10/03/18 16:32 Pulse Oximetry 96 10/03/18 16:32 Last Documented Vital Signs Temperature 99.6 F 10/03/18 16:32 Pulse Rate 89 10/03/18 16:32 Respiratory Rate 23 10/03/18 16:32 Blood Pressure 119/60 10/03/18 16:32 Pulse Oximetry 96 10/03/18 16:32 Medical Decision Making MDM Narrative Medical decision making narrative: This patient presents stating that her primary care physician, Dr. Truong, called her today and told her to come to the emergency department for admission and biopsy of her back. The patient states that she has been having chronic low back pain for quite some time. It has gotten worse over the last several months. She saw her doctor who ordered an MRI which was done at the [facility] facility. She received a phone call today stating that the MRI was abnormal and that she needed to come to the hospital prepared to be admitted for a biopsy. Unfortunately, we do not know anything about this. She does not have an MRI report. She does have a disc. In the meantime, I have ordered Percocet for her pain. I have ordered basic labs including an INR and PTT in case she really does need to have a biopsy. We are attempting to have our radiologist read the MRI. Medical Screen Exam Complete: Yes Emergency Medical Condition: Yes Differential Diagnosis Differential Diagnosis: Differential diagnosis includes but is not limited to muscular low back pain, DDD, spinal stenosis, epidural abscess, sciatica, kidney infection or stone. Lab Data Result diagrams: 10/03/18 20:20 10/03/18 20:20 Lab Results 10/03/18 10/03/18 10/03/18 Range/Units 20:20 20:20 20:20 WBC 15.5 H (4.0-11.0) th/mm3 RBC 3.10 L (4.00-5.30) mil/mm3 Hgb 9.5 L (11.6-15.3) gm/dL Hct 29.5 L (35.0-46.0) % MCV 95.1 (80.0-100.0) fL MCH 30.8 (27.0-34.0) pg MCHC 32.3 (32.0-36.0) % RDW 17.6 H (11.6-17.2) % Plt Count 285 (150-450) th/mm3 MPV 11.2 H (7.0-11.0) fL Prelim Diff (Auto) Manual diff required Differential Comment . PT 10.6 (9.8-11.6) sec INR 1.0 Ratio APTT 27.1 (23.4-31.7) sec Sodium 140 (136-145) meq/L Potassium 4.1 (3.5-5.1) meq/L Chloride 100 (98-107) meq/L Carbon Dioxide 31.4 (21.0-32.0) meq/L Anion Gap 9 (5-15) meq/L BUN 42 H (7-18) mg/dL Creatinine 2.46 H (0.50-1.00) mg/dL Estimated GFR 24 L (>89) mL/min Random Glucose 86 (74-106) mg/dL Calcium 9.3 (8.5-10.1) mg/dL Discharge Plan Discharge Disposition Patient Disposition: 30 Still Patient Discharge Details Diagnosis: Back pain, Osteomyelitis Physicians Team ED Provider: Prerna Fuller Primary Care Provider: Nancy Chou Attending Provider: Yaritza Fink Discharge Interventions Interventions: Vital Signs Last Done: 10/03/18 20:04 Status ED Status: Admitted Patient
[2018-10-03 20:48] LABS: Activated Partial Thrombo Time 27.1 sec (23.4-31.7); Hematocrit 29.5 % (35.0-46.0); Hemoglobin 9.5 gm/dL (11.6-15.3); Mean Corpuscular HGB Conc 32.3 % (32.0-36.0); Mean Corpuscular Hemoglobin 30.8 pg (27.0-34.0); Mean Corpuscular Volume 95.1 fL (80.0-100.0); Mean Platelet Volume 11.2 fL (7.0-11.0); Platelet Count 285 th/mm3 (150-450); Prothrombin Time 10.6 sec (9.8-11.6); Red Cell Distribution Width 17.6 % (11.6-17.2); White Blood Count 15.5 th/mm3 (4.0-11.0)
[2018-10-03 20:54] LABS: Calcium 9.3 mg/dL (8.5-10.1); Carbon Dioxide 31.4 meq/L (21.0-32.0); Potassium 4.1 meq/L (3.5-5.1)
[2018-10-03] MEDS ORDERED: Piperacil/Tazo 3.375 GM Premix 50 ML IV.SIG ONE (21:07)
[2018-10-03 21:31] LABS: Eosinophils 1 % (0-4); Lymphocytes 40 % (9-44); Monocytes 9 % (0-8); Tallied Nucleated RBC 1 (0-0)
[2018-10-03 21:32] LABS: Platelet Estimate Normal (Normal); Target Cells 1+; Toxic Vacuolation Present
[2018-10-03] MEDS ORDERED: Vancomycin Consult Pharmacy OTHER PRN (21:42)
[2018-10-03] MEDS ORDERED: Piperacil/Tazo 3.375 GM Premix 50 ML IV.SIG SCH (21:45)
[2018-10-03] MEDS ORDERED: Bisacodyl 10 MG Supp RECTAL PRN (21:45)
[2018-10-03] MEDS ORDERED: Zolpidem Tartrate 5 MG Tablet PO PRN (21:45)
[2018-10-03] MEDS ORDERED: Vancomycin Inj 1,000 MG in Sodium Chlor 0.9% Inj 250 ML IV.SIG SCH (22:00)
[2018-10-03] MEDS: Sod Chloride 0.9% Inj 1,000 ML IV.CONT SCH (22:41)
[2018-10-03] MEDS ORDERED: Vancomycin Inj 1,500 MG in Sodium Chlor 0.9% Inj 500 ML IV.SIG ONE (23:00)
--- NOTE | 2018-10-03 23:12 | P.HP ---
History of Present Illness Service: [facility] Primary Care Physician: Nancy Chou MD History of Present Illness: 62-year-old female with a past medical history significant for hypertension and hypothyroidism presents to the emergency department for the evaluation of lower back pain. The patient had an outpatient lumbar spine MRI done for sciatic symptoms earlier today. She was called by her primary care physician who told her to come to the emergency department because she needed a "back biopsy." The ED physician was able to speak to the patient's primary care physician, Dr. Rodriguez, who stated that the MRI was suggestive of osteomyelitis at the L3/L4 level. The patient reports that she has had 2-3 weeks of lower back pain that radiates to the left side and down her left lower extremity. She denies any fever/chills. She was hospitalized in April of this year with sepsis and bacteremia. The patient had gram-negative sepsis secondary to E. coli from a urinary tract infection. She was seen by infectious disease and treated with Zosyn. The patient denies any fever/chills. No chest pain or shortness of breath. No urinary symptoms. No abdominal pain. No nausea/vomiting/diarrhea. Inpatient Certification: I certify that the inpatient services were ordered in accordance with Medicare regulations governing the order. This includes certification that hospital inpatient services are reasonable and necessary and in the case of services not specified as inpatient-only under 42 CFR 419.22(n), that they are appropriately provided as inpatient services in accordance to with the 2-midnight benchmark under 43 CFR 412.3(e) Estimated Total Length of Stay (Days): 3 Plans for Post Hospital Care: Not yet determined Review of Systems All other systems reviewed negative except as stated in HPI [facility] - History History Provided By: Patient - Medical History Medical History: Medical History (Last Updated 10/03/18 @ 23:00 by Yaritza Fink MD) Hypothyroidism CKD (chronic kidney disease) Hyperlipemia Hypertension - Surgical History Surgical History: Surgical History (Last Reviewed 10/03/18 @ 23:00 by Yaritza Fink MD) History of cholecystectomy History of knee replacement, total Hx of splenectomy Hx of thyroidectomy - Family History Family History: Family History (Last Updated 10/03/18 @ 23:00 by Yaritza Fink MD) Other Coronary artery disease - Tobacco History Second Hand Smoke Exposure: No Tobacco Use In Past 30 Days: No Smoking Status: Former smoker Tobacco Type: Cigarettes - Alcohol History How Often Do You Have a Drink Containing Alcohol: Monthly or less - Substance Use History Substance History: No History of Abuse - Travel History Recent Travel in the [place] Within the Last 8 Weeks: No Recent Travel Out of the Country Within the Last 8 Weeks: No - Immunization History Tetanus Immunization: Unsure Medications and Allergies Active Medications: Active Medications Acetaminophen (Tylenol) 650 mg PO Q4H PRN PRN Reason: Temp > 100.4 Amlodipine Besylate (Norvasc) 10 mg PO DAILY [facility] Atenolol (Tenormin) 50 mg PO DAILY [facility] Bisacodyl (Dulcolax Supp) 10 mg RECTAL DAILY PRN PRN Reason: SEVERE CONSITIPATION Calcitriol (Rocaltrol) 0.25 mcg PO DAILY [facility] Cyclobenzaprine HCl (Flexeril) 10 mg PO BID [facility] Last Admin: 10/03/18 22:41 Dose: 10 mg Sodium Chloride (Ns Inj) 1,000 mls @ 100 mls/hr IV.CONT .Q10H [facility] Last Admin: 10/03/18 22:41 Dose: 100 mls/hr Piperacillin/Tazobactam/Dextrose (Zosyn 3.375 Gm Premix) 50 mls @ 100 mls/hr IV.SIG Q6H [facility] Vancomycin HCl 1,500 mg/ (Sodium Chloride) 530 mls @ 250 mls/hr IV.SIG ONCE ONE Stop: 10/04/18 01:07 Levothyroxine Sodium (Synthroid) 112 mcg PO DAILY@0600 [facility] Levothyroxine Sodium (Synthroid) 25 mcg PO DAILY@0600 [facility] Ondansetron HCl (Zofran Inj) 4 mg IV.PUSH Q6H PRN PRN Reason: NAUSEA OR VOMITING Oxycodone/Acetaminophen (Percocet 5/325 Mg) 1 tab PO Q4H PRN PRN Reason: pain > 4 Pantoprazole Sodium (Protonix) 20 mg PO BID [facility] Pharmacy Profile Note (Vancomycin Consult Pharmacy) 1 each OTHER UNSCH PRN PRN Reason: Pharmacy to dose Pregabalin (Lyrica) 75 mg PO BID [facility] Sennosides (Senokot) 17.2 mg PO Q12H PRN PRN Reason: Moderate Constipation Zolpidem Tartrate (Ambien) 10 mg PO HS PRN PRN Reason: INSOMNIA Allergies Allergy/AdvReac Type Severity Reaction Status Date / Time doxycycline Allergy Severe Anaphylaxis Verified 10/03/18 20:08 sulfamethoxazole Allergy Severe Anaphylaxis Verified 10/03/18 20:08 trimethoprim Allergy Severe Anaphylaxis Verified 10/03/18 20:08 Home Medications Medication Instructions Recorded Confirmed Type allopurinol 100 mg PO DAILY 07/05/18 10/03/18 History amlodipine 10 mg PO DAILY 07/05/18 10/03/18 History atenolol 50 mg PO DAILY 07/05/18 10/03/18 History calcitriol 0.25 mcg PO DAILY 07/05/18 10/03/18 History cyclobenzaprine 10 mg PO BID 07/05/18 10/03/18 History furosemide [Lasix] 20 mg PO DAILY 07/05/18 10/03/18 History hydrocodone-acetaminophen 1 tab PO Q4H PRN 07/05/18 10/03/18 History levothyroxine 137 mcg PO DAILY 07/05/18 10/03/18 History omeprazole 20 mg PO BID 07/05/18 10/03/18 History pregabalin [Lyrica] 75 mg PO BID 07/05/18 10/03/18 History zolpidem 10 mg PO HS 07/05/18 10/03/18 History Exam Vital signs: Vital Signs 10/03/18 16:32 10/03/18 22:43 Temperature 99.6 F Pulse Rate 89 95 H Respiratory Rate 23 Blood Pressure 119/60 149/93 H Pulse Oximetry 96 Intake & Output 10/03/18 10/03/18 10/04/18 06:59 18:59 06:59 Weight 117.934 kg Narrative: Gen.: No acute distress Head: Normocephalic. Atraumatic. EENT: Pupils equal round and reactive to light. Nose without drainage. Airway intact. Throat without injection. Cardiovascular: Regular rate and rhythm. No murmurs, rubs or gallops. Respiratory: Lungs clear to auscultation bilaterally. No wheezes or rhonchi. Abdomen: Soft, nontender, nondistended. No peritoneal signs. Musculoskeletal: No gross deformities. No edema. Skin: No obvious rashes or erythema. Neuro: Sensory and motor grossly intact. Cranial nerves II through XII grossly intact. Results - Labs CBC & Chem 7: 10/03/18 20:20 10/03/18 20:20 Labs: Laboratory Results - last 24 hr 10/03/18 10/03/18 10/03/18 20:20 20:20 20:20 WBC 15.5 H RBC 3.10 L Hgb 9.5 L Hct 29.5 L MCV 95.1 MCH 30.8 MCHC 32.3 RDW 17.6 H Plt Count 285 MPV 11.2 H Prelim Diff (Auto) Manual diff required WBC Differential Manual diff final Seg Neuts % (Manual) 44 Band Neuts % (Manual) 3 Lymphocytes % (Manual) 40 Monocytes % (Manual) 9 H Eosinophils % (Manual) 1 Basophils % (Manual) 3 H Abs Neuts (Manual) 7.3 Nucleated RBCs/100 WBC 1 H Differential Comment . Toxic Vacuolation Present H Platelet Estimate Normal Platelet Morphology Enlarged H Target Cells 1+ H ESR PT 10.6 INR 1.0 APTT 27.1 Sodium 140 Potassium 4.1 Chloride 100 Carbon Dioxide 31.4 Anion Gap 9 BUN 42 H Creatinine 2.46 H Estimated GFR 24 L Random Glucose 86 Calcium 9.3 C-Reactive Protein 10/03/18 10/03/18 20:20 20:20 WBC RBC Hgb Hct MCV MCH MCHC RDW Plt Count MPV Prelim Diff (Auto) WBC Differential Seg Neuts % (Manual) Band Neuts % (Manual) Lymphocytes % (Manual) Monocytes % (Manual) Eosinophils % (Manual) Basophils % (Manual) Abs Neuts (Manual) Nucleated RBCs/100 WBC Differential Comment Toxic Vacuolation Platelet Estimate Platelet Morphology Target Cells ESR Greater than 140 H PT INR APTT Sodium Potassium Chloride Carbon Dioxide Anion Gap BUN Creatinine Estimated GFR Random Glucose Calcium C-Reactive Protein 3.24 H Caprini VTE Risk Assessment Caprini VTE Risk Assessment: Moderate/High Risk (score >= 2) Caprini Risk Assessment Model: Point Value = 1 Point Value = 2 Point Value = 3 Point Value = 5 Age 41-60 Minor surgery BMI > 25 kg/m2 Swollen legs Varicose veins or History of unexplained or recurrent spontaneous Oral contraceptives or hormone replacement Sepsis (< 1 month) Serious lung disease, including pneumonia (< 1 month) Abnormal pulmonary function Acute myocardial infarction Congestive heart failure (< 1 month) History of inflammatory bowel disease Medical patient at bed rest Age 61-74 Arthroscopic surgery Major open surgery (> 45 min) Laparoscopic surgery (> 45 min) Malignancy Confined to bed (> 72 hours) Immobilizing plaster cast Central venous access Age >= 75 History of VTE Family history of VTE Factor V Leiden Prothrombin [id number] Lupus anticoagulant Anticardiolipin antibodies Elevated serum homocysteine Heparin-induced thrombocytopenia Other congenital or acquired thrombophilia Stroke (< 1 month) Elective arthroplasty Hip, pelvis, or leg fracture Acute spinal cord injury (< 1 month) Prophylaxis Regimen: Total Risk Factor Score Risk Level Prophylaxis Regimen 0-1 Low Early ambulation 2 Moderate Order ONE of the following: *Sequential Compression Device (SCD) *Heparin 5000 units SQ BID 3-4 Higher Order ONE of the following medications: *Heparin 5000 units SQ TID *Enoxaparin/Lovenox 40 mg SQ daily (WT < 150 kg, CrCl > 30 mL/min) *Enoxaparin/Lovenox 30 mg SQ daily (WT < 150 kg, CrCl > 10-29 mL/min) *Enoxaparin/Lovenox 30 mg SQ BID (WT < 150 kg, CrCl > 30 mL/min) AND/OR *Sequential Compression Device (SCD) 5 or more Highest Order ONE of the following medications: *Heparin 5000 units SQ TID (Preferred with Epidurals) *Enoxaparin/Lovenox 40 mg SQ daily (WT < 150 kg, CrCl > 30 mL/min) *Enoxaparin/Lovenox 30 mg SQ daily (WT < 150 kg, CrCl > 10-29 mL/min) *Enoxaparin/Lovenox 30 mg SQ BID (WT < 150 kg, CrCl > 30 mL/min) AND *Sequential Compression Device (SCD) Assessment and Plan - Plan Assessment/plan: 1. ? Osteomyelitis of the lumbar spine Patient had outpatient MRI done which showed possible osteomyelitis of L3/L4 ( disc in patient's chart) Patient with leukocytosis, elevated ESR/CRP Blood cultures pending Lactic acid pending Vancomycin/Zosyn Infectious disease consulted, appreciate assistance Neurosurgery consulted, appreciate assistance 2. Hypertension/hypothyroidism Continue home medications 3. Chronic kidney disease Creatinine 2.46, baseline for the patient Monitor renal function FEN N.p.o. Electrolytes: Monitor and replete as needed
[2018-10-03] MEDS: Pregabalin 75 MG Capsule PO SCH (23:35)
[2018-10-04] MEDS ORDERED: Sodium Chloride 0.9% 2 ML Flush PRN IV.FLUSH (01:25)
[2018-10-04] MEDS: Piperacil/Tazo 3.375 GM Premix 50 ML IV.SIG SCH ×3 (04:07→15:05)
[2018-10-04 05:38] LABS: Hematocrit 26.9 % (35.0-46.0); Hemoglobin 8.4 gm/dL (11.6-15.3); Mean Corpuscular HGB Conc 31.3 % (32.0-36.0); Mean Corpuscular Hemoglobin 30.3 pg (27.0-34.0); Mean Corpuscular Volume 96.9 fL (80.0-100.0); Platelet Count 264 th/mm3 (150-450); Red Blood Count 2.78 mil/mm3 (4.00-5.30); Red Cell Distribution Width 17.9 % (11.6-17.2); White Blood Count 13.2 th/mm3 (4.0-11.0)
[2018-10-04 06:04] LABS: Calcium 9.1 mg/dL (8.5-10.1); Carbon Dioxide 30.2 meq/L (21.0-32.0); Potassium 3.9 meq/L (3.5-5.1)
[2018-10-04] MEDS: Levothyroxine 112 MCG Tablet PO SCH (06:10)
--- NOTE | 2018-10-04 07:33 | P.PN ---
Subjective Interval history: Follow-up on patient with possible osteomyelitis of the lumbar spine. Patient seen and examined. Patient is complaining of back pain which radiates around to the left leg as well as down the front of the left leg to the knee. Patient denies any fever or chills. She denies any cough, chest pain or shortness of breath. She denies any nausea, vomiting or abdominal pain. She states she is not had a bowel movement since Monday. She denies any urinary difficulties. Physical Exam Vital signs: Vital Signs 10/03/18 16:32 10/03/18 22:43 10/04/18 00:00 Temperature 99.6 F 98.0 F Pulse Rate 89 95 H 104 H Respiratory Rate 23 19 Blood Pressure 119/60 149/93 H 157/73 H Pulse Oximetry 96 95 10/04/18 01:00 10/04/18 04:00 10/04/18 04:30 Temperature 97.8 F Pulse Rate 93 H 94 H 87 Respiratory Rate 20 Blood Pressure Pulse Oximetry 100 Intake & Output 10/03/18 10/04/18 10/04/18 18:59 06:59 18:59 Intake Total 630 / 630 Balance 630 / 630 Weight 117.934 kg 119.8 kg Intake: IV 630 / 630 Zosyn 3.375 GM Premix 50 ML @ 100 / 100 100 mls/hr IV.SIG Q6H [facility] Rx#: [id number] Vancomycin Inj 1,500 MG In NS 530 / 530 Inj 500 ML @ 250 mls/hr IV.SIG ONCE ONE Rx#:[id number] Other: # Voids 0 Weight On Admission 118.8 kg Narrative: GENERAL: WDWN AAF patient, INAD. Awake and alert. Appears comfortable lying in bed. SKIN: Warm and dry. HEAD: Atraumatic. Normocephalic. EYES: Pupils equal and round. No scleral icterus. No injection or drainage. ENT: No nasal bleeding or discharge. Mucous membranes pink and moist. NECK: Trachea midline. CARDIOVASCULAR: Regular rate and rhythm. RESPIRATORY: No accessory muscle use. Clear to auscultation. Breath sounds equal bilaterally. GASTROINTESTINAL: Abdomen soft, non-tender, nondistended. Hypoactive BS. MUSCULOSKELETAL: Extremities without clubbing, cyanosis, or edema. No obvious deformities. NEUROLOGICAL: Awake and alert. No obvious cranial nerve deficits. Motor grossly within normal limits. +pain elicited with left SLR. Normal speech. PSYCHIATRIC: Appropriate mood and affect; insight and judgment normal. Results - Labs CBC & Chem 7: 10/04/18 04:59 10/04/18 04:59 Laboratory Results - last 24 hr 10/03/18 10/03/18 10/03/18 20:20 20:20 20:20 WBC 15.5 H RBC 3.10 L Hgb 9.5 L Hct 29.5 L MCV 95.1 MCH 30.8 MCHC 32.3 RDW 17.6 H Plt Count 285 MPV 11.2 H Prelim Diff (Auto) Manual diff required WBC Differential Manual diff final Seg Neuts % (Manual) 44 Band Neuts % (Manual) 3 Lymphocytes % (Manual) 40 Monocytes % (Manual) 9 H Eosinophils % (Manual) 1 Basophils % (Manual) 3 H Abs Neuts (Manual) 7.3 Nucleated RBCs/100 WBC 1 H Differential Comment . Toxic Vacuolation Present H Platelet Estimate Normal Platelet Morphology Enlarged H Target Cells 1+ H ESR PT 10.6 INR 1.0 APTT 27.1 Sodium 140 Potassium 4.1 Chloride 100 Carbon Dioxide 31.4 Anion Gap 9 BUN 42 H Creatinine 2.46 H Estimated GFR 24 L Random Glucose 86 Lactic Acid Calcium 9.3 C-Reactive Protein 10/03/18 10/03/18 10/04/18 20:20 20:20 00:10 WBC RBC Hgb Hct MCV MCH MCHC RDW Plt Count MPV Prelim Diff (Auto) WBC Differential Seg Neuts % (Manual) Band Neuts % (Manual) Lymphocytes % (Manual) Monocytes % (Manual) Eosinophils % (Manual) Basophils % (Manual) Abs Neuts (Manual) Nucleated RBCs/100 WBC Differential Comment Toxic Vacuolation Platelet Estimate Platelet Morphology Target Cells ESR Greater than 140 H PT INR APTT Sodium Potassium Chloride Carbon Dioxide Anion Gap BUN Creatinine Estimated GFR Random Glucose Lactic Acid 2.0 Calcium C-Reactive Protein 3.24 H 10/04/18 10/04/18 10/04/18 01:30 04:59 04:59 WBC 13.2 H RBC 2.78 L Hgb 8.4 L Hct 26.9 L MCV 96.9 MCH 30.3 MCHC 31.3 L RDW 17.9 H Plt Count 264 MPV 12.0 H Prelim Diff (Auto) Manual diff required WBC Differential Seg Neuts % (Manual) Band Neuts % (Manual) Lymphocytes % (Manual) Monocytes % (Manual) Eosinophils % (Manual) Basophils % (Manual) Abs Neuts (Manual) Nucleated RBCs/100 WBC Differential Comment . Toxic Vacuolation Platelet Estimate Platelet Morphology Target Cells ESR PT INR APTT Sodium 140 Potassium 3.9 Chloride 103 Carbon Dioxide 30.2 Anion Gap 7 BUN 39 H Creatinine 2.31 H Estimated GFR 26 L Random Glucose 88 Lactic Acid 1.4 Calcium 9.1 C-Reactive Protein Assessment and Plan - Plan 62-year-old female with a past medical history significant for hypertension, CKD and hypothyroidism presents to the emergency department for the evaluation of lower back pain. Possible osteomyelitis of the lumbar spine Patient had outpatient MRI done which showed possible osteomyelitis of L3/L4 ( disc in patient's chart) Patient with leukocytosis, elevated ESR/CRP -Blood cultures show no growth times 1 day, follow until finalized -Infectious disease consulted, appreciate assistance. Monitor off IV antibiotics. Plan for CT guided bx. Following bx, ID to start IV Vancomycin and Ceftriaxone -Neurosurgery consulted, appreciate assistance. No surgical intervention at this time. -Pain management with bowel regimen Hypertension/hypothyroidism -Continue home medications Chronic kidney disease Creatinine 2.46, baseline for the patient -Avoid nephrotoxic agents -Monitor renal function Anemia, chronic -hgb appears at baseline -monitor for any evidence of active bleeding Constipation, chronic -initiate bowel regimen -monitor BM pattern Hx of lymphoma s/p radiation, now in remission -monitor DVT prophylaxis -bilateral SCDs Code Status: Full Discussed Condition With: patient, nursing staff, Dr. Green, Dr. Briggs Discharge Planning: Not ready for discharge
[2018-10-04 08:31] LABS: Blast Cells 1 % (0-0); Eosinophils 1 % (0-4); Monocytes 6 % (0-8); Plasma Cells 1 % (0-0)
[2018-10-04 08:32] LABS: Lymphocytes 44 % (9-44); Platelet Estimate Normal (Normal)
[2018-10-04 08:33] LABS: Target Cells 2+
[2018-10-04] MEDS ORDERED: Non-Formulary Drug (Levothyroxine [Levothyroxine] 137 MCG) PO SCH (09:00)
[2018-10-04] MEDS: Pantoprazole Sodium 20 MG DR Tablet PO SCH ×2 (09:04→20:22)
[2018-10-04] MEDS: Calcitriol 0.25 MCG Capsule PO SCH (09:05)
[2018-10-04] MEDS: amLODIPine 10 MG Tablet PO SCH (09:05)
[2018-10-04] MEDS: Pregabalin 75 MG Capsule PO SCH ×2 (09:05→20:22)
[2018-10-04] MEDS: Atenolol 50 MG Tablet PO SCH (09:05)
[2018-10-04] MEDS: Sodium Chloride 0.9% 2 ML Flush BID IV.FLUSH SCH ×2 (09:05→20:23)
[2018-10-04] MEDS: Sod Chloride 0.9% Inj 1,000 ML IV.CONT SCH ×2 (09:48→23:00)
[2018-10-04] MEDS ORDERED: Polyethylene Glycol 3350 17 GM Packet PO ONE (14:53)
[2018-10-04] MEDS ORDERED: Senna/Docusate Sodium 8.6/50 MG Tablet PO ONE (14:53)
--- NOTE | 2018-10-04 15:46 | P.CONID ---
History of Present Illness Service: Infectious disease Consult date: 10/04/18 Requesting Physician: Yaritza Fink Reason for Consult: Evaluation and management of spinal osteomyelitis Primary Care Provider: Nancy Chou MD History of Present Illness: Ms. Ontiveros is a 62-year-old -Martiniquais female with past medical history significant for lymphoma status post radiation therapy alone in 1973. Thereafter patient reports she has had a repeat PET scan a couple years back which is negative for any recurrence of lymphoma. Patient does follow-up with Dr. Thomson are hematology oncology physician for chronic anemia. Patient reports that she has received Neupogen in the past but more recently she has been unable to afford the co-pay and therefore stopped it. Patient also reports a history of chronic kidney disease stage III progressing to stage IV and she sees possibly Dr. Hai Salmon as outpatient. She reports she has not been on dialysis and does not have any AV fistula. Patient also reports that she has been diagnosed with possibly rheumatoid arthritis as well as osteoarthritis and has had chronic back pain for many years. Her medical records also reveal chronic obesity with its complications such as osteoarthritis needing bilateral total knee replacements. Upon review of medical records it appears that patient was admitted in April 2018 for E. coli UTI as well as transient E. coli bacteremia treated with oral cephalosporin. Thereafter patient reports she was doing fairly okay up until 3-4 weeks prior to admission. Approximately 3-4 weeks prior to admission patient started noticing lower back pain that radiated to the left side and down her left lower extremity. She denies any fever chills or night sweats. She denies any bowel bladder incontinence. She denies any paresthesias or saddle anesthesia. She reports that at baseline she uses a walker since the year 2001 even before her total knee replacements. She reports that at baseline she is able to ambulate with a walker but most of the chores at home as well as cooking are done by her . Patient was seen by her primary care physician who performed an MRI of the spine as outpatient. Due to concern for osteomyelitis of the spine patient was referred to outpatient infectious disease Dr. Boothe who then recommended the patient be admitted to the hospital based on a phone conversation with her primary care physician. After admission patient has been evaluated by neurosurgery. Upon my discussion with neurosurgery it appears that there is no epidural abscess or drainable focus at this time. Due to concern for osteomyelitis of the spine and leukocytosis CT-guided lumbar spine biopsy would be recommended. Infectious diseases consulted for evaluation and management of spinal discitis/ osteomyelitis. Review of Systems All other systems reviewed negative except as stated in HPI [facility] [place] - History History Provided By: Patient - Medical History Medical History: Medical History (Last Reviewed 10/04/18 @ 19:52 by Dc Silvestre MD) Hypothyroidism CKD (chronic kidney disease) Hyperlipemia Hypertension - Surgical History Surgical History: Surgical History (Last Reviewed 10/04/18 @ 19:52 by Dc Silvestre MD) History of cholecystectomy History of knee replacement, total Hx of splenectomy Hx of thyroidectomy - Family History Family History: Family History (Last Reviewed 10/04/18 @ 19:53 by Dc Silvestre MD) Other Coronary artery disease - Tobacco History Second Hand Smoke Exposure: No Tobacco Use In Past 30 Days: No Smoking Status: Former smoker Tobacco Type: Cigarettes - Alcohol History How Often Do You Have a Drink Containing Alcohol: Monthly or less - Substance Use History Substance History: No History of Abuse - Travel History Recent Travel in the [place] Within the Last 8 Weeks: No Recent Travel Out of the Country Within the Last 8 Weeks: No - Immunization History Tetanus Immunization: Unable to Assess Hx Influenza Vaccine This Season: No Medications and Allergies Active Medications: Active Medications Acetaminophen (Tylenol) 650 mg PO Q4H PRN PRN Reason: Temp > 100.4 Amlodipine Besylate (Norvasc) 10 mg PO DAILY [facility] Last Admin: 10/04/18 09:05 Dose: 10 mg Atenolol (Tenormin) 50 mg PO DAILY [facility] Last Admin: 10/04/18 09:05 Dose: 50 mg Bisacodyl (Dulcolax Supp) 10 mg RECTAL DAILY PRN PRN Reason: SEVERE CONSITIPATION Calcitriol (Rocaltrol) 0.25 mcg PO DAILY [facility] Last Admin: 10/04/18 09:05 Dose: 0.25 mcg Cyclobenzaprine HCl (Flexeril) 10 mg PO BID [facility] Last Admin: 10/04/18 09:04 Dose: 10 mg Sodium Chloride (Ns Inj) 1,000 mls @ 100 mls/hr IV.CONT .Q10H [facility] Last Admin: 10/04/18 09:48 Dose: 100 mls/hr Levothyroxine Sodium (Synthroid) 112 mcg PO DAILY@0600 [facility] Last Admin: 10/04/18 06:10 Dose: 112 mcg Levothyroxine Sodium (Synthroid) 25 mcg PO DAILY@0600 [facility] Last Admin: 10/04/18 06:10 Dose: 25 mcg Ondansetron HCl (Zofran Inj) 4 mg IV.PUSH Q6H PRN PRN Reason: NAUSEA OR VOMITING Oxycodone/Acetaminophen (Percocet 5/325 Mg) 1 tab PO Q4H PRN PRN Reason: pain > 4 Last Admin: 10/04/18 10:24 Dose: 1 tab Pantoprazole Sodium (Protonix) 20 mg PO BID [facility] Last Admin: 10/04/18 09:04 Dose: 20 mg Pregabalin (Lyrica) 75 mg PO BID [facility] Last Admin: 10/04/18 09:05 Dose: 75 mg Senna/Docusate Sodium (Joyce-Colace) 1 tab PO BID [facility] Sennosides (Senokot) 17.2 mg PO Q12H PRN PRN Reason: Moderate Constipation Sodium Chloride (Ns Flush) 2 ml IV.FLUSH BID [facility] Last Admin: 10/04/18 09:05 Dose: 2 ml Sodium Chloride (Ns Flush) 2 ml IV.FLUSH PRN PRN PRN Reason: FLUSH AFTER USING IV ACCESS Zolpidem Tartrate (Ambien) 10 mg PO HS PRN PRN Reason: INSOMNIA Last Admin: 10/03/18 23:49 Dose: 10 mg Allergies Allergy/AdvReac Type Severity Reaction Status Date / Time doxycycline Allergy Severe Anaphylaxis Verified 10/03/18 20:08 sulfamethoxazole Allergy Severe Anaphylaxis Verified 10/03/18 20:08 trimethoprim Allergy Severe Anaphylaxis Verified 10/03/18 20:08 Home Medications Medication Instructions Recorded Confirmed Type allopurinol 100 mg PO DAILY 07/05/18 10/03/18 History amlodipine 10 mg PO DAILY 07/05/18 10/03/18 History atenolol 50 mg PO DAILY 07/05/18 10/03/18 History calcitriol 0.25 mcg PO DAILY 07/05/18 10/03/18 History cyclobenzaprine 10 mg PO BID 07/05/18 10/03/18 History furosemide [Lasix] 20 mg PO DAILY 07/05/18 10/03/18 History hydrocodone-acetaminophen 1 tab PO Q4H PRN 07/05/18 10/03/18 History levothyroxine 137 mcg PO DAILY 07/05/18 10/03/18 History omeprazole 20 mg PO BID 07/05/18 10/03/18 History pregabalin [Lyrica] 75 mg PO BID 07/05/18 10/03/18 History zolpidem 10 mg PO HS 07/05/18 10/03/18 History Exam Vital signs: Vital Signs 10/03/18 16:32 10/03/18 22:43 10/04/18 00:00 Temperature 99.6 F 98.0 F Pulse Rate 89 95 H 104 H Respiratory Rate 23 19 Blood Pressure 119/60 149/93 H 157/73 H Pulse Oximetry 96 95 10/04/18 01:00 10/04/18 04:00 10/04/18 04:30 Temperature 97.8 F Pulse Rate 93 H 94 H 87 Respiratory Rate 20 Blood Pressure Pulse Oximetry 100 10/04/18 08:00 10/04/18 11:00 10/04/18 12:00 Temperature 97.6 F 98.1 F Pulse Rate 84 80 Respiratory Rate 20 18 20 Blood Pressure 136/61 116/57 L Pulse Oximetry 95 97 Intake & Output 10/03/18 10/04/18 10/04/18 18:59 06:59 18:59 Intake Total 630 / 630 1410 / 1410 Balance 630 / 630 1410 / 1410 Weight 117.934 kg 119.8 kg Intake: IV 630 / 630 1050 / 1050 NS Inj 1,000 ML @ 100 mls/hr IV 1000 / 1000 .CONT .Q10H [facility] Rx#:[id number] Zosyn 3.375 GM Premix 50 ML @ 100 / 100 50 / 50 100 mls/hr IV.SIG Q6H [facility] Rx#: [id number] Vancomycin Inj 1,500 MG In NS 530 / 530 Inj 500 ML @ 250 mls/hr IV.SIG ONCE ONE Rx#:[id number] Oral 360 / 360 Other: # Voids 0 1 Weight On Admission 118.8 kg Narrative: GENERAL: Morbidly obese well-developed, not in acute distress SKIN: Cool and dry, no generalized rash HEAD: Atraumatic. Normocephalic. No temporal or scalp tenderness. EYES: Pupils equal round and reactive. Scleral icterus. No injection or drainage. No petechia ENT: Nothing abnormal detected NECK: Trachea midline. Supple, nontender, no meningeal signs. CARDIOVASCULAR: HS audible. RESPIRATORY: Clear to auscultation bilaterally. GASTROINTESTINAL: Abdomen soft nontender. MUSCULOSKELETAL: Extremities without clubbing, cyanosis. Total knee replacement site with no evidence of infection. NEUROLOGICAL: Alert oriented 3. Nonfocal. Psych cooperative IV line sites ok. Results - Labs CBC & Chem 7: 10/04/18 04:59 10/04/18 04:59 Labs: Laboratory Results - last 24 hr 10/03/18 10/03/18 10/03/18 20:20 20:20 20:20 WBC 15.5 H RBC 3.10 L Hgb 9.5 L Hct 29.5 L MCV 95.1 MCH 30.8 MCHC 32.3 RDW 17.6 H Plt Count 285 MPV 11.2 H Prelim Diff (Auto) Manual diff required WBC Differential Manual diff final Seg Neuts % (Manual) 44 Band Neuts % (Manual) 3 Lymphocytes % (Manual) 40 Monocytes % (Manual) 9 H Eosinophils % (Manual) 1 Basophils % (Manual) 3 H Blast Cells % (Manual) Plasma Cell % (Manual) Abs Neuts (Manual) 7.3 Nucleated RBCs/100 WBC 1 H Differential Comment . Toxic Vacuolation Present H Platelet Estimate Normal Platelet Morphology Enlarged H Target Cells 1+ H ESR PT 10.6 INR 1.0 APTT 27.1 Sodium 140 Potassium 4.1 Chloride 100 Carbon Dioxide 31.4 Anion Gap 9 BUN 42 H Creatinine 2.46 H Estimated GFR 24 L Random Glucose 86 Lactic Acid Calcium 9.3 C-Reactive Protein 10/03/18 10/03/18 10/04/18 20:20 20:20 00:10 WBC RBC Hgb Hct MCV MCH MCHC RDW Plt Count MPV Prelim Diff (Auto) WBC Differential Seg Neuts % (Manual) Band Neuts % (Manual) Lymphocytes % (Manual) Monocytes % (Manual) Eosinophils % (Manual) Basophils % (Manual) Blast Cells % (Manual) Plasma Cell % (Manual) Abs Neuts (Manual) Nucleated RBCs/100 WBC Differential Comment Toxic Vacuolation Platelet Estimate Platelet Morphology Target Cells ESR Greater than 140 H PT INR APTT Sodium Potassium Chloride Carbon Dioxide Anion Gap BUN Creatinine Estimated GFR Random Glucose Lactic Acid 2.0 Calcium C-Reactive Protein 3.24 H 10/04/18 10/04/1810/04/18 01:30 04:59 04:59 WBC 13.2 H RBC 2.78 L Hgb 8.4 L Hct 26.9 L MCV 96.9 MCH 30.3 MCHC 31.3 L RDW 17.9 H Plt Count 264 MPV 12.0 H Prelim Diff (Auto) Manual diff required WBC Differential Manual diff final Seg Neuts % (Manual) 34 Band Neuts % (Manual) 7 H Lymphocytes % (Manual) 44 Monocytes % (Manual) 6 Eosinophils % (Manual) 1 Basophils % (Manual) 6 H Blast Cells % (Manual) 1 H Plasma Cell % (Manual) 1 H Abs Neuts (Manual) 5.4 Nucleated RBCs/100 WBC Differential Comment . Toxic Vacuolation Platelet Estimate Normal Platelet Morphology Enlarged H Target Cells 2+ H ESR PT INR APTT Sodium 140 Potassium 3.9 Chloride 103 Carbon Dioxide 30.2 Anion Gap 7 BUN 39 H Creatinine 2.31 H Estimated GFR 26 L Random Glucose 88 Lactic Acid 1.4 Calcium 9.1 C-Reactive Protein Assessment and Plan - Plan Suspected L4-L5 discitis Prior history of lymphoma status post radiation therapy now in remission. Morbid obesity BMI 37.9 kg/m square Allergy to doxycycline and Bactrim reported as airway swelling. Chronic kidney disease age 2 Recs: Discontinue IV antibiotics as patient clinically stable. Recommend CT-guided lumbar spine biopsy with micro and pathology. After the cultures are obtained and biopsy collected patient may be started on vancomycin IV as well as ceftriaxone IV. Follow blood cultures Follow path and cultures Follow clinical course Discussed with June SZYMANSKI for [facility] Discussed with patient
[2018-10-04 16:00] LABS: Bacteria,Urine Rare /hpf; Bilirubin,Urine Negative (Negative); Clarity,Urine Clear (Clear); Color,Urine Straw (Yellw/Straw); Glucose,Urine (UA) Negative (Negative); Leukocyte Esterase,Urine Small (Negative); Mucus,Urine Few /lpf (Occasional); Nitrite,Urine Negative (Negative); Specific Gravity,Urine 1.011 (1.002-1.035); Squamous Epithelial Cell,Urine <1 /hpf (0-5)
--- NOTE | 2018-10-04 19:56 | P.CONNS ---
History of Present Illness Service: neurosurgery Consult date: 10/04/18 Requesting Physician: Yaritza Fink Reason for Consult: possible osteomelitis Primary Care Provider: Nancy Chou MD Chief Complaint: back pain History of Present Illness: this is a 62-year-old female with a past medical history significant for hypertension and hypothyroidism presents to the emergency department for the evaluation of lower back pain. The patient had an outpatient lumbar spine MRI done for sciatic symptoms earlier today. She was called by her primary care physician who told her to come to the emergency department because she needed a "back biopsy." The ED physician was able to speak to the patient's primary care physician, Dr. Rodriguez, who stated that the MRI was suggestive of osteomyelitis at the L3/L4 Ms Ontiveros reports that she has had 2-3 weeks of lower back pain that radiates to the left side and down her left lower extremity. She denies any fever/chills. She was hospitalized in April of this year with sepsis and bacteremia. The patient had gram-negative sepsis secondary to E. coli from a urinary tract infection. She was seen by infectious disease and treated with Zosyn. The patient denies any fever/chills. No chest pain or shortness of breath. No urinary symptoms. No abdominal pain. No nausea/vomiting/diarrhea. An outpatient MRI was done. Neurosurgery consultation was requested Review of Systems All other systems reviewed negative except as stated in HPI [facility] - History History Provided By: Patient - Medical History Medical History: Medical History (Last Reviewed 10/04/18 @ 19:52 by Dc Silvestre MD) Hypothyroidism CKD (chronic kidney disease) Hyperlipemia Hypertension - Surgical History Surgical History: Surgical History (Last Reviewed 10/04/18 @ 19:52 by Dc Silvestre MD) History of cholecystectomy History of knee replacement, total Hx of splenectomy Hx of thyroidectomy - Family History Family History: Family History (Last Reviewed 10/04/18 @ 19:53 by Dc Silvestre MD) Other Coronary artery disease - Tobacco History Second Hand Smoke Exposure: No Tobacco Use In Past 30 Days: No Smoking Status: Former smoker Tobacco Type: Cigarettes - Alcohol History How Often Do You Have a Drink Containing Alcohol: Monthly or less - Substance Use History Substance History: No History of Abuse - Travel History Recent Travel in the [place] Within the Last 8 Weeks: No Recent Travel Out of the Country Within the Last 8 Weeks: No - Immunization History Tetanus Immunization: Unable to Assess Hx Influenza Vaccine This Season: No Medications and Allergies Active Medications: Active Medications Acetaminophen (Tylenol) 650 mg PO Q4H PRN PRN Reason: Temp > 100.4 Amlodipine Besylate (Norvasc) 10 mg PO DAILY [facility] Last Admin: 10/04/18 09:05 Dose: 10 mg Atenolol (Tenormin) 50 mg PO DAILY [facility] Last Admin: 10/04/18 09:05 Dose: 50 mg Bisacodyl (Dulcolax Supp) 10 mg RECTAL DAILY PRN PRN Reason: SEVERE CONSITIPATION Calcitriol (Rocaltrol) 0.25 mcg PO DAILY [facility] Last Admin: 10/04/18 09:05 Dose: 0.25 mcg Cyclobenzaprine HCl (Flexeril) 10 mg PO BID [facility] Last Admin: 10/04/18 09:04 Dose: 10 mg Sodium Chloride (Ns Inj) 1,000 mls @ 100 mls/hr IV.CONT .Q10H [facility] Last Admin: 10/04/18 09:48 Dose: 100 mls/hr Levothyroxine Sodium (Synthroid) 112 mcg PO DAILY@0600 [facility] Last Admin: 10/04/18 06:10 Dose: 112 mcg Levothyroxine Sodium (Synthroid) 25 mcg PO DAILY@0600 [facility] Last Admin: 10/04/18 06:10 Dose: 25 mcg Ondansetron HCl (Zofran Inj) 4 mg IV.PUSH Q6H PRN PRN Reason: NAUSEA OR VOMITING Oxycodone/Acetaminophen (Percocet 5/325 Mg) 1 tab PO Q4H PRN PRN Reason: pain > 4 Last Admin: 10/04/18 10:24 Dose: 1 tab Pantoprazole Sodium (Protonix) 20 mg PO BID [facility] Last Admin: 10/04/18 09:04 Dose: 20 mg Pregabalin (Lyrica) 75 mg PO BID [facility] Last Admin: 10/04/18 09:05 Dose: 75 mg Senna/Docusate Sodium (Joyce-Colace) 1 tab PO BID [facility] Sennosides (Senokot) 17.2 mg PO Q12H PRN PRN Reason: Moderate Constipation Sodium Chloride (Ns Flush) 2 ml IV.FLUSH BID [facility] Last Admin: 10/04/18 09:05 Dose: 2 ml Sodium Chloride (Ns Flush) 2 ml IV.FLUSH PRN PRN PRN Reason: FLUSH AFTER USING IV ACCESS Zolpidem Tartrate (Ambien) 10 mg PO HS PRN PRN Reason: INSOMNIA Last Admin: 10/03/18 23:49 Dose: 10 mg Allergies Allergy/AdvReac Type Severity Reaction Status Date / Time doxycycline Allergy Severe Anaphylaxis Verified 10/03/18 20:08 sulfamethoxazole Allergy Severe Anaphylaxis Verified 10/03/18 20:08 trimethoprim Allergy Severe Anaphylaxis Verified 10/03/18 20:08 Home Medications Medication Instructions Recorded Confirmed Type allopurinol 100 mg PO DAILY 07/05/18 10/03/18 History amlodipine 10 mg PO DAILY 07/05/18 10/03/18 History atenolol 50 mg PO DAILY 07/05/18 10/03/18 History calcitriol 0.25 mcg PO DAILY 07/05/18 10/03/18 History cyclobenzaprine 10 mg PO BID 07/05/18 10/03/18 History furosemide [Lasix] 20 mg PO DAILY 07/05/18 10/03/18 History hydrocodone-acetaminophen 1 tab PO Q4H PRN 07/05/18 10/03/18 History levothyroxine 137 mcg PO DAILY 07/05/18 10/03/18 History omeprazole 20 mg PO BID 07/05/18 10/03/18 History pregabalin [Lyrica] 75 mg PO BID 07/05/18 10/03/18 History zolpidem 10 mg PO HS 07/05/18 10/03/18 History Exam Vital signs: Vital Signs 10/03/18 22:43 10/04/18 00:00 10/04/18 01:00 Temperature 98.0 F Pulse Rate 95 H 104 H 93 H Respiratory Rate 19 Blood Pressure 149/93 H 157/73 H Pulse Oximetry 95 10/04/18 04:00 10/04/18 04:30 10/04/18 08:00 Temperature 97.8 F 97.6 F Pulse Rate 94 H 87 84 Respiratory Rate 20 20 Blood Pressure 136/61 Pulse Oximetry 100 95 10/04/18 11:00 10/04/18 12:00 10/04/18 16:00 Temperature 98.1 F 98.2 F Pulse Rate 80 81 Respiratory Rate 18 20 20 Blood Pressure 116/57 L 116/57 L Pulse Oximetry 97 97 Intake & Output 10/04/18 10/04/18 10/05/18 06:59 18:59 06:59 Intake Total 630 / 630 1460 / 1460 Balance 630 / 630 1460 / 1460 Weight 119.8 kg Intake: IV 630 / 630 1100 / 1100 NS Inj 1,000 ML @ 100 mls/hr IV 1000 / 1000 .CONT .Q10H [facility] Rx#:[id number] Zosyn 3.375 GM Premix 50 ML @ 100 / 100 100 / 100 100 mls/hr IV.SIG Q6H [facility] Rx#: [id number] Vancomycin Inj 1,500 MG In NS 530 / 530 Inj 500 ML @ 250 mls/hr IV.SIG ONCE ONE Rx#:[id number] Oral 360 / 360 Other: # Voids 0 1 Weight On Admission 118.8 kg Narrative: The patient is alert, awake. Comfortable, in no acute distress. Speech is fluent. Cranial nerve examination: pupils to be equal, round and reactive to light. Extra-ocular movements are intact. Facial motor and sensory function are normal and symmetrical. Gross hearing appears intact. Sternocleidomastoid and trapezius muscles are symmetrical. Other cranial nerves are intact. Neck is soft and supple with a good range of motion without pain. Muscle strength is normal in all muscle groups of both upper and lower extremities. Sensory examination is intact to light touch and pin prick in both the upper and lower extremities. Deep tendon reflexes are symmetrical in both upper and lower extremities. There is a bilateral plantar flexion response. Cerebellar examination is unremarkable, without deficits. Lungs are clear Heart regular rhythm is regular rate Skin warm and dry Results - Laboratory Findings CBC and BMP: 10/04/18 04:59 10/04/18 04:59 Abnormal lab findings: Abnormal Labs 10/03/18 10/03/18 10/03/18 20:20 20:20 20:20 WBC 15.5 H RBC 3.10 L Hgb 9.5 L Hct 29.5 L MCHC RDW 17.6 H MPV 11.2 H Band Neuts % (Manual) Monocytes % (Manual) 9 H Basophils % (Manual) 3 H Blast Cells % (Manual) Plasma Cell % (Manual) Nucleated RBCs/100 WBC 1 H Toxic Vacuolation Present H Platelet Morphology Enlarged H Target Cells 1+ H ESR Greater than 140 H BUN 42 H Creatinine 2.46 H Estimated GFR 24 L C-Reactive Protein Ur Leukocyte Esterase Urine Bacteria Urine Mucus 10/03/18 10/04/18 10/04/18 20:20 04:59 04:59 WBC 13.2 H RBC 2.78 L Hgb 8.4 L Hct 26.9 L MCHC 31.3 L RDW 17.9 H MPV 12.0 H Band Neuts % (Manual) 7 H Monocytes % (Manual) Basophils % (Manual) 6 H Blast Cells % (Manual) 1 H Plasma Cell % (Manual) 1 H Nucleated RBCs/100 WBC Toxic Vacuolation Platelet Morphology Enlarged H Target Cells 2+ H ESR BUN 39 H Creatinine 2.31 H Estimated GFR 26 L C-Reactive Protein 3.24 H Ur Leukocyte Esterase Urine Bacteria Urine Mucus 10/04/18 15:15 WBC RBC Hgb Hct MCHC RDW MPV Band Neuts % (Manual) Monocytes % (Manual) Basophils % (Manual) Blast Cells % (Manual) Plasma Cell % (Manual) Nucleated RBCs/100 WBC Toxic Vacuolation Platelet Morphology Target Cells ESR BUN Creatinine Estimated GFR C-Reactive Protein Ur Leukocyte Esterase Small H Urine Bacteria Rare H Urine Mucus Few H Assessment and Plan - Plan Suspected Osteomyelitis of the lumbar spine. neuro checks in a serial fashion. Patient had outpatient MRI done which showed suspected osteomyelitis of L3/L4. Recommend to repat her MRI with and without contrast Leukocytosis, follow up ESR/CRP Blood cultures pending She is on empiric treatment with Vancomycin/Zosyn Infectious disease consulted Recommend a CT guided iopsy and aspiration for cultures Hypertension/hypothyroidism Continue home medications Pulmonary: aggressive pulmonary toilette, nasotracheal suction, and breathing treatments with nebulizers. Daily PT and OT Renal: Chronic kidney disease Creatinine 2.46, baseline for the patient Monitor renal function Endocrine: Continue to Monitor serial Acu checks and SSI as needed in detail ID continue to monitor for signs of infection Continue Protonix for stress ulcer prophylaxis Continue Stanley hose and SCD's for DVT prophylaxis Caprini VTE Risk Assessment Caprini VTE Risk Assessment: Moderate/High Risk (score >= 2) Caprini Risk Assessment Model: Point Value = 1 Point Value = 2 Point Value = 3 Point Value = 5 Age 41-60 Minor surgery BMI > 25 kg/m2 Swollen legs Varicose veins or History of unexplained or recurrent spontaneous Oral contraceptives or hormone replacement Sepsis (< 1 month) Serious lung disease, including pneumonia (< 1 month) Abnormal pulmonary function Acute myocardial infarction Congestive heart failure (< 1 month) History of inflammatory bowel disease Medical patient at bed rest Age 61-74 Arthroscopic surgery Major open surgery (> 45 min) Laparoscopic surgery (> 45 min) Malignancy Confined to bed (> 72 hours) Immobilizing plaster cast Central venous access Age >= 75 History of VTE Family history of VTE Factor V Leiden Prothrombin [id number] Lupus anticoagulant Anticardiolipin antibodies Elevated serum homocysteine Heparin-induced thrombocytopenia Other congenital or acquired thrombophilia Stroke (< 1 month) Elective arthroplasty Hip, pelvis, or leg fracture Acute spinal cord injury (< 1 month) Prophylaxis Regimen: Total Risk Factor Score Risk Level Prophylaxis Regimen 0-1 Low Early ambulation 2 Moderate Order ONE of the following: *Sequential Compression Device (SCD) *Heparin 5000 units SQ BID 3-4 Higher Order ONE of the following medications: *Heparin 5000 units SQ TID *Enoxaparin/Lovenox 40 mg SQ daily (WT < 150 kg, CrCl > 30 mL/min) *Enoxaparin/Lovenox 30 mg SQ daily (WT < 150 kg, CrCl > 10-29 mL/min) *Enoxaparin/Lovenox 30 mg SQ BID (WT < 150 kg, CrCl > 30 mL/min) AND/OR *Sequential Compression Device (SCD) 5 or more Highest Order ONE of the following medications: *Heparin 5000 units SQ TID (Preferred with Epidurals) *Enoxaparin/Lovenox 40 mg SQ daily (WT < 150 kg, CrCl > 30 mL/min) *Enoxaparin/Lovenox 30 mg SQ daily (WT < 150 kg, CrCl > 10-29 mL/min) *Enoxaparin/Lovenox 30 mg SQ BID (WT < 150 kg, CrCl > 30 mL/min) AND *Sequential Compression Device (SCD)
[2018-10-04] MEDS: Senna/Docusate Sodium 8.6/50 MG Tablet PO SCH (20:22)
[2018-10-05] MEDS: Sod Chloride 0.9% Inj 1,000 ML IV.CONT SCH ×2 (03:52→18:48)
[2018-10-05] MEDS: Levothyroxine 112 MCG Tablet PO SCH (06:08)
[2018-10-05 06:19] LABS: Albumin 2.1 g/dL (3.4-5.0)
[2018-10-05 06:21] LABS: Total Protein 7.7 g/dL (6.4-8.2); Vancomycin,Random 14.8 Comment
--- NOTE | 2018-10-05 06:57 | P.PN ---
Subjective Interval history: Patient says her back and left leg pain are better today while she is in the bed but she still has severe pain when up out of the bed. She denies any numbness, tingling or weakness. She denies any fever or chills. She ambulates with a walker due to chronic back pain and bilateral knee pain with hx of bilateral TKRs. She says the percocet is not controlling her pain and is requesting Morphine. Physical Exam Vital signs: Vital Signs 10/04/18 08:00 10/04/18 11:00 10/04/18 12:00 Temperature 97.6 F 98.1 F Pulse Rate 84 80 Respiratory Rate 20 18 20 Blood Pressure 136/61 116/57 L Pulse Oximetry 95 97 10/04/18 16:00 10/04/18 20:00 10/04/18 21:00 Temperature 98.2 F 97.9 F Pulse Rate 81 81 87 Respiratory Rate 20 20 Blood Pressure 116/57 L 124/62 Pulse Oximetry 97 93 L 10/05/18 00:00 10/05/18 00:30 10/05/18 03:48 Temperature 98.2 F Pulse Rate 89 89 Respiratory Rate 20 18 Blood Pressure 131/62 Pulse Oximetry 100 10/05/18 04:00 Temperature 98.1 F Pulse Rate 85 Respiratory Rate 18 Blood Pressure 103/53 L Pulse Oximetry 93 L Intake & Output 10/04/18 10/04/18 10/05/18 06:59 18:59 06:59 Intake Total 630 / 630 1460 / 1460 1000 / 1000 Balance 630 / 630 1460 / 1460 1000 / 1000 Weight 119.8 kg 121.3 kg Intake: IV 630 / 630 1100 / 1100 1000 / 1000 NS Inj 1,000 ML @ 100 mls/hr IV 1000 / 1000 1000 / 1000 .CONT .Q10H LINDA Rx#:[id number] Zosyn 3.375 GM Premix 50 ML @ 100 / 100 100 / 100 100 mls/hr IV.SIG Q6H LINDA Rx#: [id number] Vancomycin Inj 1,500 MG In NS 530 / 530 Inj 500 ML @ 250 mls/hr IV.SIG ONCE ONE Rx#:[id number] Oral 360 / 360 Other: # Voids 0 1 2 Weight On Admission 118.8 kg Narrative: GENERAL: WDWN morbidly obese [facility] patient, INAD. Awake and alert. Pleasant. SKIN: Warm and dry. No generalized rash. HEENT: Atraumatic. Normocephalic. Pupils equal and round. No scleral icterus. No injection or drainage. No nasal bleeding or discharge. Mucous membranes pink and moist. NECK: Trachea midline. CARDIOVASCULAR: Regular rate and rhythm. RESPIRATORY: No accessory muscle use. Clear to auscultation. Breath sounds equal bilaterally. GASTROINTESTINAL: Abdomen soft, non-tender, nondistended. +BS. MUSCULOSKELETAL: Extremities without clubbing, cyanosis, or edema. +well healed bilateral TKR incisions. NEUROLOGICAL: Awake and alert. No obvious cranial nerve deficits. Able to move all extremities spontaneously. +pain elicited with left SLR. Normal speech. PSYCHIATRIC: Appropriate mood and affect; insight and judgment normal. Results - Labs CBC & Chem 7: 10/04/18 04:59 10/04/18 04:59 Laboratory Results - last 24 hr 10/04/18 10/04/18 10/05/18 04:59 15:15 04:54 WBC Differential Manual diff final Seg Neuts % (Manual) 34 Band Neuts % (Manual) 7 H Lymphocytes % (Manual) 44 Monocytes % (Manual) 6 Eosinophils % (Manual) 1 Basophils % (Manual) 6 H Blast Cells % (Manual) 1 H Plasma Cell % (Manual) 1 H Abs Neuts (Manual) 5.4 Platelet Estimate Normal Platelet Morphology Enlarged H Target Cells 2+ H Total Bilirubin 0.3 Direct Bilirubin 0.1 Indirect Bilirubin 0.2 AST 16 ALT 13 Alkaline Phosphatase 67 Total Protein 7.7 Albumin 2.1 L Urine Color Straw Urine Clarity Clear Urine pH 5.0 Ur Specific [place] 1.011 Urine Protein Negative Urine Glucose (UA) Negative Urine Ketones Negative Urine Occult Blood Negative Urine Nitrate Negative Urine Bilirubin Negative Urine Urobilinogen Less than 2 Ur Leukocyte Esterase Small H Urine RBC 1 Urine WBC 5 Ur Squamous Epith Cells <1 Urine Bacteria Rare H Urine Mucus Few H Micro UA Comment Culture not ind Ur Microscopic Review Not Reportable Urine Culture Comments Culture not ind Random Vancomycin 14.8 Microbiology 10/03/18 21:45 Blood - Peripheral Aerobic Blood Culture - Preliminary No growth in 1 day 10/03/18 21:45 Blood - Peripheral Anaerobic Blood Culture - Preliminary No growth in 1 day 10/03/18 20:00 Blood - Peripheral Aerobic Blood Culture - Preliminary No growth in 1 day 10/03/18 20:00 Blood - Peripheral Anaerobic Blood Culture - Preliminary No growth in 1 day Assessment and Plan - Plan 62-year-old female with a past medical history significant for hypertension, CKD and hypothyroidism presents to the emergency department for the evaluation of lower back pain. Possible osteomyelitis of the lumbar spine Patient had outpatient MRI done which showed possible osteomyelitis of L3/L4 ( disc in patient's chart) Patient with leukocytosis, elevated ESR/CRP -Blood cultures show no growth times 2 days, follow until finalized -ID following, appreciate assistance. CT a/p neg for iliopsoas abscess. Planned for CT guided bx with IR. Follow up on cx. Plan to start IV Vancomycin and Ceftriaxone after bx obtained -IV vancomycin/Zosyn discontinued, being monitored off antibiotics -Neurosurgery consulted, appreciate assistance. No surgical intervention at this time. -escalate pain regimen Leukocytosis, suspect secondary to above patient is afebrile -white count trending down -now off IV abx -repeat CBC in am Hypertension/hypothyroidism -Continue home medications Chronic kidney disease Creatinine near baseline for the patient -Avoid nephrotoxic agents -Monitor renal function as indicated Anemia, chronic -hgb appears at baseline -monitor for any evidence of active bleeding Constipation, chronic -initiate bowel regimen -monitor BM pattern Hx of lymphoma s/p radiation therapy, in remission -monitor DVT prophylaxis -bilateral SCD/TRINITY hose Discussed Condition With: patient, nursing staff, Dr. Green, Dr. Briggs Discharge Planning: Not ready for discharge
[2018-10-05] MEDS: Pregabalin 75 MG Capsule PO SCH ×2 (09:16→22:06)
[2018-10-05] MEDS: Pantoprazole Sodium 20 MG DR Tablet PO SCH ×2 (09:17→22:06)
[2018-10-05] MEDS: Atenolol 50 MG Tablet PO SCH (09:17)
[2018-10-05] MEDS: Calcitriol 0.25 MCG Capsule PO SCH (09:17)
[2018-10-05] MEDS: amLODIPine 10 MG Tablet PO SCH (09:17)
[2018-10-05] MEDS: Sodium Chloride 0.9% 2 ML Flush BID IV.FLUSH SCH ×2 (09:17→22:07)
[2018-10-05] MEDS: Senna/Docusate Sodium 8.6/50 MG Tablet PO SCH ×2 (09:17→20:35)
--- NOTE | 2018-10-05 11:42 | CT ---
EXAM DATE: 10/05/2018 11:12 AM EST AGE/SEX: 62 years / Female INDICATIONS: Possible psoas abscess. CLINICAL DATA: This is the patient's initial encounter. Patient reports that signs and symptoms have been present for 1 day and indicates a pain score of 10/10. MEDICAL/SURGICAL HISTORY: Hypertension. Renal disease. Splenectomy. Cholecystectomy. Thyroi dectomy. RADIATION DOSE: 11.02 CTDI (mGy) COMPARISON: No prior exams available for comparison. TECHNIQUE: Multiple contiguous axial images were obtained through the abdomen. Images were obtained using multiple row detector helical technique. Using automated exposure control and adjustment of the mA and/or kV according to patient size, radiation dose was kept as low as reasonably achievable to o btain optimal diagnostic quality images. DICOM format image data is available electronically for rev iew and comparison. FINDINGS: The limited portion of lung base visualized is clear. There is advanced atherosclerotic plaquing in t he coronary arteries. The patient is post splenectomy. Imaging through the liver demonstrates 2 low-attenuation lesions. The lesion in the left lobe measure s 1.1 cm. The lesion on the right measures 0.9 cm. These are indeterminate by noncontrast imaging. The pancreas, adrenal glands and kidneys are intact. The abdominal aorta is normal in caliber. There is no retroperitoneal lymphadenopathy. No free fluid is identified within the pelvis. No iliac or inguinal adenopathy is seen. Bone windowed imaging is provided. These demonstrate advanced degenerative changes throughout the lum bar spine. The request states there is a concern for a psoas muscle. The left iliopsoas as does appea r larger than the right side with a subtle area of decreased attenuation approximately at the L3-4 an d L4-5 level however I do not see a definite defined, abscess. If possible, postcontrast imaging may be of benefit for more definitive assessment. CONCLUSION: 1. There are advanced degenerative changes throughout the lumbar spine. There is some cortical irreg ularity of the vertebral endplates across the L3/4 disc level. Presumably there is outside cross-sect ional imaging through this area. There was concern for possible abscess in the iliopsoas muscle. Ther e is some subtle decreased attenuation in the muscle on the left side just beneath the L3-4 disc spac e but I do not see a definite defined drainable collection by noncontrast imaging. If possible, postc ontrast imaging may be of benefit for more definitive assessment. 2. There are 2 low-attenuation lesions within the liver. These are too small to definitively charact erize by noncontrast CT. 3. The patient is post splenectomy. Electronically signed by: Mauricio Gutierrez MD 10/05/2018 11:40 AM EST
[2018-10-05] MEDS: Morphine Inj 4 MG/ML Vial IV.PUSH PRN ×2 (12:27→17:25)
--- NOTE | 2018-10-05 12:37 | P.PNID ---
Subjective Remarks: Ms. Ontiveros is a 62-year-old -[place] female with past medical history significant for lymphoma status post radiation therapy alone in 1973. Thereafter patient reports she has had a repeat PET scan a couple years back which is negative for any recurrence of lymphoma. Patient does follow-up with Dr. Thomson are hematology oncology physician for chronic anemia. Patient reports that she has received Neupogen in the past but more recently she has been unable to afford the co-pay and therefore stopped it. Patient also reports a history of chronic kidney disease stage III progressing to stage IV and she sees possibly Dr. Hai Salmon as outpatient. She reports she has not been on dialysis and does not have any AV fistula. Patient also reports that she has been diagnosed with possibly rheumatoid arthritis as well as osteoarthritis and has had chronic back pain for many years. Her medical records also reveal chronic obesity with its complications such as osteoarthritis needing bilateral total knee replacements. Upon review of medical records it appears that patient was admitted in April 2018 for E. coli UTI as well as transient E. coli bacteremia treated with oral cephalosporin. Thereafter patient reports she was doing fairly okay up until 3-4 weeks prior to admission. Approximately 3-4 weeks prior to admission patient started noticing lower back pain that radiated to the left side and down her left lower extremity. She denies any fever chills or night sweats. She denies any bowel bladder incontinence. She denies any paresthesias or saddle anesthesia. She reports that at baseline she uses a walker since the year 2001 even before her total knee replacements. She reports that at baseline she is able to ambulate with a walker but most of the chores at home as well as cooking are done by her . Patient was seen by her primary care physician who performed an MRI of the spine as outpatient. Due to concern for osteomyelitis of the spine patient was referred to outpatient infectious disease Dr. Boothe who then recommended the patient be admitted to the hospital based on a phone conversation with her primary care physician. After admission patient has been evaluated by neurosurgery. Upon my discussion with neurosurgery it appears that there is no epidural abscess or drainable focus at this time. Due to concern for osteomyelitis of the spine and leukocytosis CT-guided lumbar spine biopsy would be recommended. Infectious diseases consulted for evaluation and management of spinal discitis/ osteomyelitis. Overnight events reviewed No fever No rash No diarrhea Complains of back pain and pain radiating down the right leg. Had CT A/P with no iliopsoas abscess. Plan for IR guided biopsy today. Antibiotics: None Lines: Lines ok Past Medical History: reviewed Allergies/Adverse Reactions: Allergies doxycycline Allergy (Severe, Verified 10/03/18 20:08) Anaphylaxis sulfamethoxazole Allergy (Severe, Verified 10/03/18 20:08) Anaphylaxis trimethoprim Allergy (Severe, Verified 10/03/18 20:08) Anaphylaxis Objective Vital Signs 10/04/18 16:00 10/04/18 20:00 10/04/18 21:00 Temperature 98.2 F 97.9 F Pulse Rate 81 81 87 Respiratory Rate 20 20 Blood Pressure 116/57 L 124/62 Pulse Oximetry 97 93 L 10/05/18 00:00 10/05/18 00:30 10/05/18 03:48 Temperature 98.2 F Pulse Rate 89 89 Respiratory Rate 20 18 Blood Pressure 131/62 Pulse Oximetry 100 10/05/18 04:00 10/05/18 08:00 10/05/18 09:15 Temperature 98.1 F 98.0 F Pulse Rate 85 92 H Respiratory Rate 18 20 18 Blood Pressure 103/53 L 163/59 H Pulse Oximetry 93 L 99 10/05/18 10:40 Temperature Pulse Rate Respiratory Rate 19 Blood Pressure Pulse Oximetry Intake & Output 10/04/18 10/05/18 10/05/18 18:59 06:59 18:59 Intake Total 1460 / 1460 1000 / 1000 1240 / 1240 Balance 1460 / 1460 1000 / 1000 1240 / 1240 Weight 121.3 kg Intake: IV 1100 / 1100 1000 / 1000 1000 / 1000 NS Inj 1,000 ML @ 100 mls/hr IV 1000 / 1000 1000 / 1000 1000 / 1000 .CONT .Q10H LINDA Rx#:[id number] Zosyn 3.375 GM Premix 50 ML @ 100 / 100 100 mls/hr IV.SIG Q6H LINDA Rx#: [id number] Oral 360 / 360 240 / 240 Other: # Voids 1 2 1 10/03/18 21:45 Blood - Peripheral Aerobic Blood Culture - Preliminary No growth in 2 days 10/03/18 21:45 Blood - Peripheral Anaerobic Blood Culture - Preliminary No growth in 2 days 10/03/18 20:00 Blood - Peripheral Aerobic Blood Culture - Preliminary No growth in 2 days 10/03/18 20:00 Blood - Peripheral Anaerobic Blood Culture - Preliminary No growth in 2 days Lab - Hematology Results 10/03/18 10/03/18 10/04/18 20:20 20:20 04:59 WBC 15.5 H 13.2 H RBC 3.10 L 2.78 L Hgb 9.5 L 8.4 L Hct 29.5 L 26.9 L MCV 95.1 96.9 MCH 30.8 30.3 MCHC 32.3 31.3 L RDW 17.6 H 17.9 H Plt Count 285 264 MPV 11.2 H 12.0 H Prelim Diff (Auto) Manual diff required Manual diff required WBC Differential Manual diff final Manual diff final Seg Neuts % (Manual) 44 34 Band Neuts % (Manual) 3 7 H Lymphocytes % (Manual) 40 44 Monocytes % (Manual) 9 H 6 Eosinophils % (Manual) 1 1 Basophils % (Manual) 3 H 6 H Blast Cells % (Manual) 1 H Plasma Cell % (Manual) 1 H Abs Neuts (Manual) 7.3 5.4 Nucleated RBCs/100 WBC 1 H Differential Comment . . Toxic Vacuolation Present H Platelet Estimate Normal Normal Platelet Morphology Enlarged H Enlarged H Target Cells 1+ H 2+ H ESR Greater than 140 H Lab - Chemistry Results 10/03/18 10/03/18 10/04/18 20:20 20:20 00:10 Sodium 140 Potassium 4.1 Chloride 100 Carbon Dioxide 31.4 Anion Gap 9 BUN 42 H Creatinine 2.46 H Estimated GFR 24 L Random Glucose 86 Lactic Acid 2.0 Calcium 9.3 Total Bilirubin Direct Bilirubin Indirect Bilirubin AST ALT Alkaline Phosphatase C-Reactive Protein 3.24 H Total Protein Albumin 10/04/18 10/04/18 10/05/18 01:30 04:59 04:54 Sodium 140 Potassium 3.9 Chloride 103 Carbon Dioxide 30.2 Anion Gap 7 BUN 39 H Creatinine 2.31 H Estimated GFR 26 L Random Glucose 88 Lactic Acid 1.4 Calcium 9.1 Total Bilirubin 0.3 Direct Bilirubin 0.1 Indirect Bilirubin 0.2 AST 16 ALT 13 Alkaline Phosphatase 67 C-Reactive Protein Total Protein 7.7 Albumin 2.1 L Imaging: ITS Impressions Abdomen/Pelvis CT 10/05/18 10:07 CONCLUSION: 1. There are advanced degenerative changes throughout the lumbar spine. There is some cortical irregularity of the vertebral endplates across the L3/4 disc level. Presumably there is outside cross-sectional imaging through this area. There was concern for possible abscess in the iliopsoas muscle. There is some subtle decreased attenuation in the muscle on the left side just beneath the L3- 4 disc space but I do not see a definite defined drainable collection by noncontrast imaging. If possible, postcontrast imaging may be of benefit for more definitive assessment. 2. There are 2 low-attenuation lesions within the liver. These are too small to definitively characterize by noncontrast CT. 3. The patient is post splenectomy. Physical Exam: GENERAL: Morbidly obese well-developed, not in acute distress SKIN: Cool and dry, no generalized rash HEAD: Atraumatic. Normocephalic. No temporal or scalp tenderness. EYES: Pupils equal round and reactive. Scleral icterus. No injection or drainage. No petechia ENT: Nothing abnormal detected NECK: Trachea midline. Supple, nontender, no meningeal signs. CARDIOVASCULAR: HS audible. RESPIRATORY: Clear to auscultation bilaterally. GASTROINTESTINAL: Abdomen soft nontender. MUSCULOSKELETAL: Extremities without clubbing, cyanosis. Total knee replacement site with no evidence of infection. NEUROLOGICAL: Alert oriented 3. Nonfocal. Psych cooperative IV line sites ok. Assessment and Plan - Plan Suspected L4-L5 discitis Prior history of lymphoma status post radiation therapy now in remission. Morbid obesity BMI 37.9 kg/m square Allergy to doxycycline and Bactrim reported as airway swelling. Chronic kidney disease age 2 Recs: Observe off antibiotics. Plan for CT-guided lumbar spine biopsy with micro and pathology. After the cultures are obtained and biopsy collected patient may be started on vancomycin IV as well as ceftriaxone IV. Follow blood cultures Check tumor markers CA-19-9,CEA,AFP. Follow path and cultures Follow clinical course Discussed with June SZYMANSKI for [facility] Discussed with patient dw got a CT A/P to r.o iliopsoas abscess but none so back to original plan of CT guided spine biopsy L4-5. covering for me this weekend.
[2018-10-05] MEDS ORDERED: fentaNYL Citrate Inj 250 MCG/5 ML Ampul ONE (14:15)
--- NOTE | 2018-10-05 14:54 | P.RAD ---
Post Procedure Progress Note - Pre Procedure Diagnosis (1) Osteomyelitis - Post Procedure Diagnosis (1) Osteomyelitis - Procedure Information Procedure Date: 10/05/18 Supervising Radiologist: Brannon Manzano Jr, MD Estimated blood loss (mL): 0 Anesthesia: Conscious Sedation - Plan of Activity Patient to Unit: [facility] Patient Condition: Good See PACS Report for procedural detail/treatment. Spinal Procedure Disc Aspiration L3-L4 Fluid Removal (CCs): 1 Fluid Description: Bloody Puncture Time: 14:50 Findings: L3-4 aspiration yielded 1mL of serosanguineous fluid. Sample to micro for analysis.
--- NOTE | 2018-10-05 15:46 | IR ---
EXAM DATE: 10/05/2018 3:08 PM EST AGE/SEX: 62 years / Female INDICATIONS: Patient with L3-4 discitis in need of disc aspiration. CLINICAL DATA: This is the patient's initial encounter. Patient reports that signs and symptoms have been present for 2 days and indicates a pain score of 8/10. MEDICAL/SURGICAL HISTORY: Hypothyroidism. Hypertension. Hypercholesterolemia. CKD, Sepsis, B acteremia Cholecystectomy. Splenectomy. Thyroidectomy. Total knee replacement COMPARISON: No prior exams available for comparison. FLUORO TIME (min): 1.5 IMAGE SERIES: 2 SEDATION TIME (min): 20 MEDICATION(S): 2.5mg midazolam (Versed) IV 125mcg fentanyl (Sublimaze) IV DEVICE(s): 22 gauge X10CM Chiba needle SPECIMEN(S): Core specimen(s) obtained and submitted to laboratory for pathologic evaluation. . . PROCEDURE: 1. Fluoroscopically guided needle biopsy. 2. Conscious sedation with continuous EKG and Oximetry monitoring. Outpatient MRI from [facility] was reviewed prior to the procedure. The risks, benefits and alternative s to the procedure were explained and verbal and written consent was obtained. The site was prepped in sterile fashion. Full sterile technique was used, including cap, mask, steri le gloves and gown and a large sterile sheet. Hand hygiene and 2% chlorhexidine and/or betadine/alco hol prep was utilized per protocol for cutaneous antisepsis. The skin and subcutaneous tissues were infiltrated with local anesthetic solution. With fluoroscopic guidance a 22-gauge Chiba needle was passed via left posterior oblique approachinto the L3-L4 disc space. Aspiration yielded 1 mL of serosanguineous fluid. This was placed in culture m edia. The needle was removed.. Conscious sedation was performed with the prescribed dosages and duration as above in the presence of an independent trained radiology nurse to assist in the monitoring of the patient. EKG and oximetry remained stable throughout the procedure. CONCLUSION: 1. Uncomplicated L3-L4 disc aspiration as above. Electronically signed by: Brannon Manzano MD 10/05/2018 3:45 PM EST
[2018-10-05] MEDS ORDERED: Vancomycin Consult Pharmacy OTHER SCH (18:00)
[2018-10-05] MEDS ORDERED: Vancomycin Inj 1,500 MG in Sodium Chlor 0.9% Inj 500 ML IV.SIG ONE (19:00)
[2018-10-06] MEDS: Levothyroxine 112 MCG Tablet PO SCH (05:46)
[2018-10-06 08:31] LABS: Hematocrit 23.8 % (35.0-46.0); Mean Corpuscular HGB Conc 33.5 % (32.0-36.0); Mean Corpuscular Hemoglobin 32.2 pg (27.0-34.0); Mean Platelet Volume 12.1 fL (7.0-11.0); Platelet Count 227 th/mm3 (150-450); Red Blood Count 2.48 mil/mm3 (4.00-5.30); Red Cell Distribution Width 17.6 % (11.6-17.2)
[2018-10-06 08:56] LABS: Calcium 8.6 mg/dL (8.5-10.1); Carbon Dioxide 28.9 meq/L (21.0-32.0); Potassium 4.3 meq/L (3.5-5.1)
--- NOTE | 2018-10-06 09:40 | P.PNIM ---
Subjective Interval history: Follow-up visit possible lumbar spine osteomyelitis, leukocytosis, chronic anemia, HTN. Patient seen and examined today. Reports she is doing better. Pain is manageable when she is now moving. States though her pain is increased when she move up and down the bed. States she ambulates very short distances and able to transfer with use of walker. Denies SOB/ dyspnea. Denies chest pain, palpitations, headaches, dizziness. Denies fevers, chills, n/v/d. Denies dysuria. Physical Exam Vital signs: Vital Signs 10/05/18 10:40 10/05/18 12:00 10/05/18 13:31 Temperature Pulse Rate 83 Respiratory Rate 19 16 Blood Pressure Pulse Oximetry 10/05/18 15:00 10/05/18 15:15 10/05/18 15:30 Temperature 98.3 F Pulse Rate 85 80 76 Respiratory Rate 20 20 20 Blood Pressure 133/65 127/60 123/50 L Pulse Oximetry 91 L 93 L 93 L 10/05/18 16:00 10/05/18 16:06 10/05/18 17:29 Temperature 97.7 F Pulse Rate 75 84 Respiratory Rate 20 20 17 Blood Pressure 133/44 L 142/65 H Pulse Oximetry 96 97 10/05/18 20:00 10/06/18 04:00 10/06/18 08:04 Temperature 97.4 F L 97.1 F L 98.1 F Pulse Rate 88 92 H 89 Respiratory Rate 18 20 18 Blood Pressure 129/69 122/58 L 119/57 L Pulse Oximetry 95 94 L 98 Intake & Output 10/05/18 10/06/18 10/06/18 18:59 06:59 18:59 Intake Total 1240 / 1240 1375 / 1375 Balance 1240 / 1240 1375 / 1375 Weight 122.3 kg Intake: IV 1000 / 1000 1015 / 1015 NS Inj 1,000 ML @ 100 mls/hr IV 1000 / 1000 400 / 400 .CONT .Q10H [facility] Rx#:[id number] Vancomycin Inj 1,500 MG In NS 515 / 515 Inj 500 ML @ 250 mls/hr IV.SIG ONCE ONE Rx#:[id number] Rocephin Inj 1,000 MG In NS Inj 100 / 100 100 ML @ 200 mls/hr IV.SIG Q24H [facility] Rx#:[id number] Oral 240 / 240 360 / 360 Other: # Voids 1 2 Narrative: GENERAL: This is a well-nourished, well-developed patient, in no apparent distress. SKIN: Warm and dry. HEENT: Normocephalic. Pupils equal round and reactive. Nose without bleeding. Airway patent. NECK: Trachea midline. CARDIOVASCULAR: Regular rate and rhythm without murmurs, gallops, or rubs. RESPIRATORY: Clear to auscultation. Breath sounds equal bilaterally. No wheezes , rales, or rhonchi. GASTROINTESTINAL: Abdomen soft, non-tender, nondistended. Bowel Sounds normoactive x4. MUSCULOSKELETAL: Extremities without clubbing, cyanosis, or edema. NEUROLOGICAL: Awake and alert. Oriented to time, place, person. Moves all extremities, weak BLE . Normal speech. Results - Labs CBC & Chem 7: 10/06/18 07:27 10/06/18 07:27 Laboratory Results - last 24 hr 10/06/18 10/06/18 07:27 07:27 WBC 11.0 RBC 2.48 L Hgb 8.0 L Hct 23.8 L MCV 96.0 MCH 32.2 MCHC 33.5 RDW 17.6 H Plt Count 227 MPV 12.1 H Prelim Diff (Auto) Manual diff required Differential Comment . Sodium 142 Potassium 4.3 Chloride 106 Carbon Dioxide 28.9 Anion Gap 7 BUN 24 H Creatinine 1.96 H Estimated GFR 31 L Random Glucose 90 Calcium 8.6 Microbiology 10/03/18 21:45 Blood - Peripheral Aerobic Blood Culture - Preliminary No growth in 2 days 10/03/18 21:45 Blood - Peripheral Anaerobic Blood Culture - Preliminary No growth in 2 days 10/03/18 20:00 Blood - Peripheral Aerobic Blood Culture - Preliminary No growth in 2 days 10/03/18 20:00 Blood - Peripheral Anaerobic Blood Culture - Preliminary No growth in 2 days - Imaging Impressions Needle Biopsy/Aspiration X-Ray 10/05/18 00:00 CONCLUSION: 1. Uncomplicated L3-L4 disc aspiration as above. Abdomen/Pelvis CT 10/05/18 10:07 CONCLUSION: 1. There are advanced degenerative changes throughout the lumbar spine. There is some cortical irregularity of the vertebral endplates across the L3/4 disc level. Presumably there is outside cross-sectional imaging through this area. There was concern for possible abscess in the iliopsoas muscle. There is some subtle decreased attenuation in the muscle on the left side just beneath the L3- 4 disc space but I do not see a definite defined drainable collection by noncontrast imaging. If possible, postcontrast imaging may be of benefit for more definitive assessment. 2. There are 2 low-attenuation lesions within the liver. These are too small to definitively characterize by noncontrast CT. 3. The patient is post splenectomy. Assessment and Plan - Plan 2-year-old female with a past medical history significant for hypertension, CKD and hypothyroidism presents to the emergency department for the evaluation of lower back pain. Possible osteomyelitis of the lumbar spine Patient had outpatient MRI done which showed possible osteomyelitis of L3/L4 ( disc in patient's chart) Patient with leukocytosis, elevated ESR/CRP -Blood cultures show no growth times 2 days, follow until finalized -ID following, appreciate assistance. CT a/p neg for iliopsoas abscess. -CT guided bx with IR done Follow up on cx. -IV Vancomycin and Ceftriaxone after bx obtained -IV vancomycin/Zosyn discontinued, being monitored off antibiotics -Neurosurgery consulted, appreciate assistance. No surgical intervention at this time. -Pain management as ordered Leukocytosis, suspect secondary to above patient is afebrile -white count improved -On track sound, IV vancomycin recent trough 14.8 Hypertension/hypothyroidism -Continue home medications atenolol 50 mg daily -Monitor BP trend Chronic kidney disease Creatinine near baseline for the patient -Avoid nephrotoxic agents -Monitor renal function as indicated Anemia, chronic -hgb appears at baseline -monitor for any evidence of active bleeding Constipation, chronic -initiate bowel regimen -monitor BM pattern Hx of lymphoma s/p radiation therapy, in remission -Follow-up in the outpatient DVT prophylaxis bilateral SCD/TRINITY hose Code Status: Full Code Discussed Condition With: Patient, nursing Discharge Planning: DC when cleared by infectious disease. Pending biopsy results
[2018-10-06 09:51] LABS: Lymphocytes 24 % (9-44); Monocytes 11 % (0-8)
[2018-10-06 09:52] LABS: Platelet Estimate Normal (Normal)
[2018-10-06 09:53] LABS: Target Cells 2+
[2018-10-06 09:54] LABS: Howell-Jolly Bodies Present; Ovalocytes 1+
[2018-10-06] MEDS: Calcitriol 0.25 MCG Capsule PO SCH (09:57)
[2018-10-06] MEDS: Pregabalin 75 MG Capsule PO SCH ×2 (09:57→20:19)
[2018-10-06] MEDS: Pantoprazole Sodium 20 MG DR Tablet PO SCH ×2 (09:57→20:19)
[2018-10-06] MEDS: Senna/Docusate Sodium 8.6/50 MG Tablet PO SCH ×2 (09:58→20:19)
[2018-10-06] MEDS: Atenolol 50 MG Tablet PO SCH (09:58)
[2018-10-06] MEDS: Sodium Chloride 0.9% 2 ML Flush BID IV.FLUSH SCH ×2 (09:58→20:20)
[2018-10-06] MEDS: amLODIPine 10 MG Tablet PO SCH (09:58)
[2018-10-06] MEDS: Morphine Inj 4 MG/ML Vial IV.PUSH PRN ×2 (10:14→15:15)
[2018-10-06] MEDS: oxyCODONE/Acetaminophen 10/325 Tablet PO PRN (20:19)
[2018-10-07] MEDS: Levothyroxine 112 MCG Tablet PO SCH (06:20)
[2018-10-07] MEDS: Pregabalin 75 MG Capsule PO SCH ×2 (08:31→21:53)
[2018-10-07] MEDS: Pantoprazole Sodium 20 MG DR Tablet PO SCH ×2 (08:32→21:53)
[2018-10-07] MEDS: amLODIPine 10 MG Tablet PO SCH (08:32)
[2018-10-07] MEDS: Calcitriol 0.25 MCG Capsule PO SCH (08:32)
[2018-10-07] MEDS: Senna/Docusate Sodium 8.6/50 MG Tablet PO SCH ×2 (08:33→21:52)
[2018-10-07] MEDS: Atenolol 50 MG Tablet PO SCH (08:34)
[2018-10-07] MEDS: Sodium Chloride 0.9% 2 ML Flush BID IV.FLUSH SCH ×2 (08:35→21:53)
[2018-10-07] MEDS: oxyCODONE/Acetaminophen 10/325 Tablet PO PRN ×3 (09:47→21:52)
--- NOTE | 2018-10-07 10:45 | P.PNIM ---
Subjective Interval history: Follow-up visit possible lumbar spine osteomyelitis, leukocytosis, chronic anemia, HTN. Patient seen and examined today. Reports she is okay. States she is having pain on her back, also bilateral lower extremity. States that she just took her pain medication and waiting for it to take effect. Denies SOB / dyspnea. Denies chest pain, palpitations, headaches, dizziness. Denies fevers , chills, n/v/d. Denies dysuria. Physical Exam Vital signs: Vital Signs 10/06/18 12:00 10/06/18 16:37 10/06/18 19:57 Temperature 99.6 F 100 F H Pulse Rate 96 H 93 H 99 H Respiratory Rate 20 18 Blood Pressure 143/63 H 125/60 Pulse Oximetry 97 99 10/06/18 20:00 10/07/18 00:21 10/07/18 00:40 Temperature 100.2 F H 99.5 F Pulse Rate 91 H 92 H 92 H Respiratory Rate 18 18 Blood Pressure 141/58 H 119/57 L Pulse Oximetry 98 98 10/07/18 04:53 10/07/18 05:28 10/07/18 07:45 Temperature 98.1 F 98.7 F Pulse Rate 88 87 88 Respiratory Rate 20 20 Blood Pressure 105/50 L 116/54 L Pulse Oximetry 98 93 L Intake & Output 10/06/18 10/07/18 10/07/18 18:59 06:59 18:59 Intake Total 700 / 700 Output Total 360 / 360 Balance 340 / 340 Weight 121.9 kg Intake: IV 100 / 100 Rocephin Inj 1,000 MG In NS Inj 100 / 100 100 ML @ 200 mls/hr IV.SIG Q24H [facility] Rx#:[id number] Oral 600 / 600 Output: Urine 360 / 360 Other: # Voids 2 Narrative: GENERAL: This is a well-nourished, well-developed patient, in no apparent distress. SKIN: Warm and dry. HEENT: Normocephalic. Pupils equal round and reactive. Nose without bleeding. Airway patent. NECK: Trachea midline. CARDIOVASCULAR: Regular rate and rhythm without murmurs, gallops, or rubs. RESPIRATORY: Clear to auscultation. Breath sounds equal bilaterally. No wheezes , rales, or rhonchi. GASTROINTESTINAL: Abdomen soft, non-tender, nondistended. Bowel Sounds normoactive x4. MUSCULOSKELETAL: Extremities without clubbing, cyanosis, or edema. NEUROLOGICAL: Awake and alert. Oriented to time, place, person. Moves all extremities, weak BLE . Normal speech. Results - Labs CBC & Chem 7: 10/06/18 07:27 10/06/18 07:27 Laboratory Results - last 24 hr 10/07/18 08:06 Random Vancomycin 18.3 Microbiology 10/05/18 14:48 Fluid - Other Gram Stain - Final 10/05/18 14:48 Fluid - Other Wound Culture - Preliminary No growth in 48 hours 10/03/18 21:45 Blood - Peripheral Aerobic Blood Culture - Preliminary No growth in 3 days 10/03/18 21:45 Blood - Peripheral Anaerobic Blood Culture - Preliminary No growth in 3 days 10/03/18 20:00 Blood - Peripheral Aerobic Blood Culture - Preliminary No growth in 3 days 10/03/18 20:00 Blood - Peripheral Anaerobic Blood Culture - Preliminary No growth in 3 days Assessment and Plan - Plan 2-year-old female with a past medical history significant for hypertension, CKD and hypothyroidism presents to the emergency department for the evaluation of lower back pain. Possible osteomyelitis of the lumbar spine Patient had outpatient MRI done which showed possible osteomyelitis of L3/L4 ( disc in patient's chart) Patient with leukocytosis, elevated ESR/CRP -Blood cultures show no growth times 2 days, follow until finalized -ID following, appreciate assistance. CT a/p neg for iliopsoas abscess. Recommend to check tumor markers CA 199, CEA, AFP -CT guided bx with IR done Follow up on cx. -IV Vancomycin and Ceftriaxone after bx obtained -Neurosurgery consulted, appreciate assistance. No surgical intervention at this time. -Pain management as ordered, Lyrica 75 twice daily, morphine IV for breakthrough pain, Percocet, continue with bowel regimen Leukocytosis, suspect secondary to above patient is afebrile -white count improved -On track sound, IV vancomycin recent trough 14.8 Hypertension/hypothyroidism -Continue home medications atenolol 50 mg daily -Monitor BP trend Chronic kidney disease Creatinine near baseline for the patient -Avoid nephrotoxic agents -Monitor renal function as indicated Anemia, chronic -hgb appears at baseline -monitor for any evidence of active bleeding Constipation, chronic -initiate bowel regimen -monitor BM pattern Hx of lymphoma s/p radiation therapy, in remission -Follow-up in the outpatient DVT prophylaxis bilateral SCD/TRINITY hose CODE STATUS Full code Discussed with patient, nursing Discharge Planning: DC when cleared by infectious disease. Pending biopsy results
[2018-10-07 12:15] LABS: C-Reactive Protein 8.5 mg/dL (0.00-0.30)
[2018-10-07 12:18] LABS: Carcinoembryonic Antigen 1.6 ng/mL (0.2-5.0)
[2018-10-07 12:49] LABS: Cancer Antigen 125 8.6 U/mL (0.0-30.2)
[2018-10-07 12:50] LABS: Cancer Antigen 19-9 17.3 U/mL (0.0-35.0)
--- NOTE | 2018-10-07 14:11 | P.PNID ---
Subjective Remarks: Ms. Ontiveros is a 62-year-old -[place] female with past medical history significant for lymphoma status post radiation therapy alone in 1973. Thereafter patient reports she has had a repeat PET scan a couple years back which is negative for any recurrence of lymphoma. Patient does follow-up with Dr. Thomson are hematology oncology physician for chronic anemia. Patient reports that she has received Neupogen in the past but more recently she has been unable to afford the co-pay and therefore stopped it. Patient also reports a history of chronic kidney disease stage III progressing to stage IV and she sees possibly Dr. Hai Salmon as outpatient. She reports she has not been on dialysis and does not have any AV fistula. Patient also reports that she has been diagnosed with possibly rheumatoid arthritis as well as osteoarthritis and has had chronic back pain for many years. Her medical records also reveal chronic obesity with its complications such as osteoarthritis needing bilateral total knee replacements. Upon review of medical records it appears that patient was admitted in April 2018 for E. coli UTI as well as transient E. coli bacteremia treated with oral cephalosporin. Thereafter patient reports she was doing fairly okay up until 3-4 weeks prior to admission. Approximately 3-4 weeks prior to admission patient started noticing lower back pain that radiated to the left side and down her left lower extremity. She denies any fever chills or night sweats. She denies any bowel bladder incontinence. She denies any paresthesias or saddle anesthesia. She reports that at baseline she uses a walker since the year 2001 even before her total knee replacements. She reports that at baseline she is able to ambulate with a walker but most of the chores at home as well as cooking are done by her . Patient was seen by her primary care physician who performed an MRI of the spine as outpatient. Due to concern for osteomyelitis of the spine patient was referred to outpatient infectious disease Dr. Boothe who then recommended the patient be admitted to the hospital based on a phone conversation with her primary care physician. After admission patient has been evaluated by neurosurgery. Upon my discussion with neurosurgery it appears that there is no epidural abscess or drainable focus at this time. Due to concern for osteomyelitis of the spine and leukocytosis CT-guided lumbar spine biopsy would be recommended. Infectious diseases consulted for evaluation and management of spinal discitis/ osteomyelitis. Notes reviewed Had IRguided biopsy 10/05 C/S negative C/O back pain robert with any movement Also notes some pain on top of both feet No fever No rash No diarrhea Antibiotics: Rocephin Vancomycin Lines: Lines ok Past Medical History: reviewed Allergies/Adverse Reactions: Allergies doxycycline Allergy (Severe, Verified 10/03/18 20:08) Anaphylaxis sulfamethoxazole Allergy (Severe, Verified 10/03/18 20:08) Anaphylaxis trimethoprim Allergy (Severe, Verified 10/03/18 20:08) Anaphylaxis Objective Vital Signs 10/06/18 16:37 10/06/18 19:57 10/06/18 20:00 Temperature 100 F H 100.2 F H Pulse Rate 93 H 99 H 91 H Respiratory Rate 18 18 Blood Pressure 125/60 141/58 H Pulse Oximetry 99 98 10/07/18 00:21 10/07/18 00:40 10/07/18 04:53 Temperature 99.5 F 98.1 F Pulse Rate 92 H 92 H 88 Respiratory Rate 18 20 Blood Pressure 119/57 L 105/50 L Pulse Oximetry 98 98 10/07/18 05:28 10/07/18 07:45 10/07/18 11:51 Temperature 98.7 F 99.5 F Pulse Rate 87 88 98 H Respiratory Rate 20 20 Blood Pressure 116/54 L 140/61 Pulse Oximetry 93 L 100 Intake & Output 10/06/18 10/07/18 10/07/18 18:59 06:59 18:59 Intake Total 700 / 700 240 / 240 Output Total 360 / 360 400 / 400 Balance 340 / 340 -160 / -160 Weight 121.9 kg Intake: IV 100 / 100 Rocephin Inj 1,000 MG In NS Inj 100 / 100 100 ML @ 200 mls/hr IV.SIG Q24H [facility] Rx#:[id number] Oral 600 / 600 240 / 240 Output: Urine 360 / 360 400 / 400 Other: # Voids 2 10/03/18 21:45 Blood - Peripheral Aerobic Blood Culture - Preliminary No growth in 4 days 10/03/18 21:45 Blood - Peripheral Anaerobic Blood Culture - Preliminary No growth in 4 days 10/03/18 20:00 Blood - Peripheral Aerobic Blood Culture - Preliminary No growth in 4 days 10/03/18 20:00 Blood - Peripheral Anaerobic Blood Culture - Preliminary No growth in 4 days 10/05/18 14:48 Fluid - Other Gram Stain - Final 10/05/18 14:48 Fluid - Other Wound Culture - Preliminary No growth in 48 hours 10/05/18 14:48 Fluid - Other Fungal Smear - Pending 10/05/18 14:48 Fluid - Other Fungal Culture - Pending 10/05/18 14:48 Fluid - Other Acid Fast Bacilli Smear - Pending 10/05/18 14:48 Fluid - Other Mycobacterial Culture - Pending Lab - Hematology Results 10/06/18 07:27 WBC 11.0 RBC 2.48 L Hgb 8.0 L Hct 23.8 L MCV 96.0 MCH 32.2 MCHC 33.5 RDW 17.6 H Plt Count 227 MPV 12.1 H Prelim Diff (Auto) Manual diff required WBC Differential Manual diff final Seg Neuts % (Manual) 60 Band Neuts % (Manual) 2 Lymphocytes % (Manual) 24 Monocytes % (Manual) 11 H Basophils % (Manual) 3 H Abs Neuts (Manual) 6.8 Differential Comment . Platelet Estimate Normal Platelet Morphology Enlarged H Target Cells 2+ H Ovalocytes 1+ H Red-Caribou Bodies Present H Lab - Chemistry Results 10/06/18 10/07/18 10/07/18 07:27 09:50 09:50 Sodium 142 Potassium 4.3 Chloride 106 Carbon Dioxide 28.9 Anion Gap 7 BUN 24 H Creatinine 1.96 H Estimated GFR 31 L Random Glucose 90 Calcium 8.6 C-Reactive Protein 8.50 H Carcinoembryonic Ag 1.6 CA 15-3 Antigen 5.8 CA 19-9 Antigen CA 125 Antigen 10/07/18 09:50 Sodium Potassium Chloride Carbon Dioxide Anion Gap BUN Creatinine Estimated GFR Random Glucose Calcium C-Reactive Protein Carcinoembryonic Ag CA 15-3 Antigen CA 19-9 Antigen 17.3 CA 125 Antigen 8.6 Imaging: ITS Impressions Needle Biopsy/Aspiration X-Ray 10/05/18 00:00 CONCLUSION: 1. Uncomplicated L3-L4 disc aspiration as above. Abdomen/Pelvis CT 10/05/18 10:07 CONCLUSION: 1. There are advanced degenerative changes throughout the lumbar spine. There is some cortical irregularity of the vertebral endplates across the L3/4 disc level. Presumably there is outside cross-sectional imaging through this area. There was concern for possible abscess in the iliopsoas muscle. There is some subtle decreased attenuation in the muscle on the left side just beneath the L3- 4 disc space but I do not see a definite defined drainable collection by noncontrast imaging. If possible, postcontrast imaging may be of benefit for more definitive assessment. 2. There are 2 low-attenuation lesions within the liver. These are too small to definitively characterize by noncontrast CT. 3. The patient is post splenectomy. Physical Exam: GENERAL: Morbidly obese well-developed, not in acute distress SKIN: Cool and dry, no generalized rash HEAD: Atraumatic. Normocephalic. No temporal or scalp tenderness. EYES: Pupils equal round and reactive. Scleral icterus. No injection or drainage. No petechia ENT: Nothing abnormal detected NECK: Trachea midline. Supple, nontender, no meningeal signs. CARDIOVASCULAR: HS audible. RESPIRATORY: Clear to auscultation bilaterally. GASTROINTESTINAL: Abdomen soft nontender. MUSCULOSKELETAL: Extremities without clubbing, cyanosis. Total knee replacement site with no evidence of infection. NEUROLOGICAL: Alert oriented 3. Nonfocal. Psych cooperative IV line sites ok. Assessment and Plan - Plan Suspected L4-L5 discitis Prior history of lymphoma status post radiation therapy now in remission. Morbid obesity BMI 37.9 kg/m square Allergy to doxycycline and Bactrim reported as airway swelling. Chronic kidney disease age 2 Recs: On Rocephin and Vancomycin Follow C/S Cultures prob will be negative - she got 2 doses IV vanco 10/04 and 10/05, and 4 doses of IV Zosyn last dose given 09/24 Check tumor markers CA-19-9,CEA,AFP. Monitor progress Discussed with patient
[2018-10-07] MEDS ORDERED: Vancomycin Inj 1,500 MG in Sodium Chlor 0.9% Inj 500 ML IV.SIG ONE (20:00)
[2018-10-08] MEDS: Levothyroxine 112 MCG Tablet PO SCH (06:35)
[2018-10-08] MEDS: oxyCODONE/Acetaminophen 10/325 Tablet PO PRN ×3 (06:44→21:59)
[2018-10-08 06:50] LABS: Alanine Aminotransferase 12 U/L (10-53); Albumin 2.2 g/dL (3.4-5.0); Anion Gap 8 meq/L (5-15); Aspartate Aminotransferase 13 U/L (15-37); Blood Urea Nitrogen 24 mg/dL (7-18); Calcium 9.1 mg/dL (8.5-10.1); Carbon Dioxide 28.8 meq/L (21.0-32.0); Chloride 104 meq/L (98-107); Glomerular Filtration Rate 29 mL/min (>89); Glucose,Random 85 mg/dL (74-106); Potassium 4.2 meq/L (3.5-5.1); Sodium 141 meq/L (136-145)
[2018-10-08 06:52] LABS: Alkaline Phosphatase 64 U/L (45-117); Total Protein 7.8 g/dL (6.4-8.2)
[2018-10-08 07:56] LABS: Baso # (Auto) 0.8 th/mm3 (0.0-0.2); Baso % (Auto) 5.1 % (0.0-2.0); Eos # (Auto) 0.1 th/mm3 (0.0-0.4); Eos % (Auto) 0.4 % (0.0-4.0); Hematocrit 23.4 % (35.0-46.0); Hemoglobin 7.8 gm/dL (11.6-15.3); Lymph # (Auto) 8.4 th/mm3 (1.0-4.8); Lymph % (Auto) 53.4 % (9.0-44.0); Mean Corpuscular HGB Conc 33.4 % (32.0-36.0); Mean Corpuscular Hemoglobin 31.9 pg (27.0-34.0); Mean Corpuscular Volume 95.3 fL (80.0-100.0); Mean Platelet Volume 11.6 fL (7.0-11.0); Mono # (Auto) 1.2 th/mm3 (0.0-0.9); Mono % (Auto) 7.5 % (0.0-8.0); Neut # (Auto) 5.3 th/mm3 (1.8-7.7); Neut % (Auto) 33.6 % (16.0-70.0); Red Blood Count 2.46 mil/mm3 (4.00-5.30); Red Cell Distribution Width 17.8 % (11.6-17.2); White Blood Count 15.7 th/mm3 (4.0-11.0)
[2018-10-08 08:41] LABS: Eosinophils 2 % (0-4); Lymphocytes 35 % (9-44); Monocytes 6 % (0-8)
[2018-10-08 08:42] LABS: Howell-Jolly Bodies Present; Platelet Estimate Normal (Normal)
[2018-10-08 08:43] LABS: Target Cells 1+
[2018-10-08] MEDS: Calcitriol 0.25 MCG Capsule PO SCH (09:26)
[2018-10-08] MEDS: Senna/Docusate Sodium 8.6/50 MG Tablet PO SCH ×2 (09:26→21:59)
[2018-10-08] MEDS: Pregabalin 75 MG Capsule PO SCH ×2 (09:26→21:58)
[2018-10-08] MEDS: Pantoprazole Sodium 20 MG DR Tablet PO SCH ×2 (09:27→21:59)
[2018-10-08] MEDS: amLODIPine 10 MG Tablet PO SCH (09:31)
[2018-10-08] MEDS: Atenolol 50 MG Tablet PO SCH (09:31)
[2018-10-08] MEDS: Sodium Chloride 0.9% 2 ML Flush BID IV.FLUSH SCH ×2 (09:33→21:59)
--- NOTE | 2018-10-08 10:14 | P.PNIM ---
Subjective Interval history: Follow-up visit possible lumbar spine osteomyelitis, leukocytosis, chronic anemia, HTN. Patient seen and examined today. Reports she is okay. States she continues having pain on her back, also bilateral lower extremity, aggravated by movement. Denies SOB/ dyspnea. Denies chest pain, palpitations, headaches, dizziness. Denies fevers, chills, n/v/d. Denies dysuria. Physical Exam Vital signs: Vital Signs 10/07/18 11:51 10/07/18 20:00 10/07/18 22:40 Temperature 99.5 F 98.6 F Pulse Rate 98 H 94 H 95 H Respiratory Rate 20 20 Blood Pressure 140/61 126/57 L Pulse Oximetry 100 98 10/08/18 02:40 10/08/18 06:30 Temperature 98.4 F 100.2 F H Pulse Rate 92 H 94 H Respiratory Rate 20 20 Blood Pressure 124/64 115/55 L Pulse Oximetry 100 99 Intake & Output 10/07/18 10/08/18 10/08/18 18:59 06:59 18:59 Intake Total 1680 / 1680 895 / 895 Output Total 1400 / 1400 800 / 800 Balance 280 / 280 95 / 95 Intake: IV 615 / 615 Vancomycin Inj 1,500 MG In NS 515 / 515 Inj 500 ML @ 250 mls/hr IV.SIG ONCE ONE Rx#:[id number] Rocephin Inj 1,000 MG In NS Inj 100 / 100 100 ML @ 200 mls/hr IV.SIG Q24H LINDA Rx#:[id number] Oral 1680 / 1680 280 / 280 Output: Urine 1400 / 1400 800 / 800 Other: # Voids 0 Date of Last Bowel Movement 10/07/17 # Bowel Movements 1 Narrative: GENERAL: This is a well-nourished, well-developed patient, in no apparent distress. SKIN: Warm and dry. HEENT: Normocephalic. Pupils equal round and reactive. Nose without bleeding. Airway patent. NECK: Trachea midline. CARDIOVASCULAR: Regular rate and rhythm without murmurs, gallops, or rubs. RESPIRATORY: Clear to auscultation. Breath sounds equal bilaterally. No wheezes , rales, or rhonchi. GASTROINTESTINAL: Abdomen soft, non-tender, nondistended. Bowel Sounds normoactive x4. MUSCULOSKELETAL: Extremities without clubbing, cyanosis, or edema. NEUROLOGICAL: Awake and alert. Oriented to time, place, person. Moves all extremities, weak BLE . Normal speech. Results - Labs CBC & Chem 7: 10/08/18 04:37 10/08/18 10:20 Laboratory Results - last 24 hr 10/07/18 10/07/18 10/07/18 09:50 09:50 09:50 WBC RBC Hgb Hct MCV MCH MCHC RDW Plt Count MPV Prelim Diff (Auto) Neut % (Auto) Lymph % (Auto) [place] % (Auto) Eos % (Auto) Baso % (Auto) Neut # (Auto) Lymph # (Auto) [place] # (Auto) Eos # (Auto) Baso # (Auto) WBC Differential Seg Neuts % (Manual) Band Neuts % (Manual) Lymphocytes % (Manual) Monocytes % (Manual) Eosinophils % (Manual) Basophils % (Manual) Abs Neuts (Manual) Differential Comment Platelet Estimate Platelet Morphology Target Cells Red-[place] Bodies Sodium Potassium Chloride Carbon Dioxide Anion Gap BUN Creatinine Estimated GFR Random Glucose Calcium Total Bilirubin AST ALT Alkaline Phosphatase C-Reactive Protein 8.50 H Total Protein Albumin Carcinoembryonic Ag 1.6 CA 15-3 Antigen 5.8 CA 19-9 Antigen 17.3 CA 125 Antigen 8.6 10/08/18 10/08/18 04:37 04:37 WBC 15.7 H RBC 2.46 L Hgb 7.8 L Hct 23.4 L MCV 95.3 MCH 31.9 MCHC 33.4 RDW 17.8 H Plt Count MPV 11.6 H Prelim Diff (Auto) Slide review pending Neut % (Auto) 33.6 Lymph % (Auto) 53.4 H [place] % (Auto) 7.5 Eos % (Auto) 0.4 Baso % (Auto) 5.1 H Neut # (Auto) 5.3 Lymph # (Auto) 8.4 H [place] # (Auto) 1.2 H Eos # (Auto) 0.1 Baso # (Auto) 0.8 H WBC Differential Manual diff final Seg Neuts % (Manual) 49 Band Neuts % (Manual) 5 Lymphocytes % (Manual) 35 Monocytes % (Manual) 6 Eosinophils % (Manual) 2 Basophils % (Manual) 3 H Abs Neuts (Manual) 8.5 H Differential Comment . Platelet Estimate Normal Platelet Morphology Enlarged H Target Cells 1+ H Red-[place] Bodies Present H Sodium 141 Potassium 4.2 Chloride 104 Carbon Dioxide 28.8 Anion Gap 8 BUN 24 H Creatinine 2.10 H Estimated GFR 29 L Random Glucose 85 Calcium 9.1 Total Bilirubin 0.3 AST 13 L ALT 12 Alkaline Phosphatase 64 C-Reactive Protein Total Protein 7.8 Albumin 2.2 L Carcinoembryonic Ag CA 15-3 Antigen CA 19-9 Antigen CA 125 Antigen Microbiology 10/05/18 14:48 Fluid - Other Acid Fast Bacilli Smear - Final No acid fast bacilli seen 10/05/18 14:48 Fluid - Other Gram Stain - Final 10/05/18 14:48 Fluid - Other Wound Culture - Final No growth in 72 hours (aerobically and anaerobically ) 10/03/18 21:45 Blood - Peripheral Aerobic Blood Culture - Preliminary No growth in 4 days 10/03/18 21:45 Blood - Peripheral Anaerobic Blood Culture - Preliminary No growth in 4 days 10/03/18 20:00 Blood - Peripheral Aerobic Blood Culture - Preliminary No growth in 4 days 10/03/18 20:00 Blood - Peripheral Anaerobic Blood Culture - Preliminary No growth in 4 days Assessment and Plan - Plan 2-year-old female with a past medical history significant for hypertension, CKD and hypothyroidism presents to the emergency department for the evaluation of lower back pain. Possible osteomyelitis of the lumbar spine Patient had outpatient MRI done which showed possible osteomyelitis of L3/L4 ( disc in patient's chart) Patient with leukocytosis, elevated ESR/CRP -Blood cultures show no growth times 2 days, follow until finalized -ID following, appreciate assistance. CT a/p neg for iliopsoas abscess. Tumor markers CA 199, CEA - WNL. AFP pending -CT guided bx with IR done Follow up on cx. No pathology sent -IV Vancomycin and Ceftriaxone after bx obtained. Vancio held - 10/08 -Neurosurgery consulted, appreciate assistance. No surgical intervention at this time. -Pain management as ordered, Lyrica 75 twice daily, morphine IV for breakthrough pain, Percocet, continue with bowel regimen Leukocytosis, suspect secondary to above patient is afebrile -13.2 --> 11 -->15.7 -On Vanco, elevated trough -Per ID hold, cont ceftriaxone Hypertension/hypothyroidism -Continue home medications atenolol 50 mg daily -Monitor BP trend Chronic kidney disease Creatinine near baseline for the patient -Avoid nephrotoxic agents -Monitor renal function as indicated Anemia, chronic -hgb appears at baseline -monitor for any evidence of active bleeding Constipation, chronic -initiate bowel regimen -monitor BM pattern Hx of lymphoma s/p radiation therapy, in remission -Follow-up in the outpatient DVT prophylaxis bilateral SCD/TRINITY hose CODE STATUS Full code Discussed with patient, nursing Discharge Planning: DC when cleared by infectious disease. Pending biopsy results
--- NOTE | 2018-10-08 14:52 | P.PNID ---
Subjective Remarks: Ms. Ontiveros is a 62-year-old -[place] female with past medical history significant for lymphoma status post radiation therapy alone in 1973. Thereafter patient reports she has had a repeat PET scan a couple years back which is negative for any recurrence of lymphoma. Patient does follow-up with Dr. Thomson are hematology oncology physician for chronic anemia. Patient reports that she has received Neupogen in the past but more recently she has been unable to afford the co-pay and therefore stopped it. Patient also reports a history of chronic kidney disease stage III progressing to stage IV and she sees possibly Dr. Hai Salmon as outpatient. She reports she has not been on dialysis and does not have any AV fistula. Patient also reports that she has been diagnosed with possibly rheumatoid arthritis as well as osteoarthritis and has had chronic back pain for many years. Her medical records also reveal chronic obesity with its complications such as osteoarthritis needing bilateral total knee replacements. Upon review of medical records it appears that patient was admitted in April 2018 for E. coli UTI as well as transient E. coli bacteremia treated with oral cephalosporin. Thereafter patient reports she was doing fairly okay up until 3-4 weeks prior to admission. Approximately 3-4 weeks prior to admission patient started noticing lower back pain that radiated to the left side and down her left lower extremity. She denies any fever chills or night sweats. She denies any bowel bladder incontinence. She denies any paresthesias or saddle anesthesia. She reports that at baseline she uses a walker since the year 2001 even before her total knee replacements. She reports that at baseline she is able to ambulate with a walker but most of the chores at home as well as cooking are done by her . Patient was seen by her primary care physician who performed an MRI of the spine as outpatient. Due to concern for osteomyelitis of the spine patient was referred to outpatient infectious disease Dr. Boothe who then recommended the patient be admitted to the hospital based on a phone conversation with her primary care physician. After admission patient has been evaluated by neurosurgery. Upon my discussion with neurosurgery it appears that there is no epidural abscess or drainable focus at this time. Due to concern for osteomyelitis of the spine and leukocytosis CT-guided lumbar spine biopsy would be recommended. Infectious diseases consulted for evaluation and management of spinal discitis/ osteomyelitis. Notes reviewed Had IRguided biopsy 10/05 C/S negative C/O back pain robert with any movement Also notes some pain on top of both feet No fever No rash No diarrhea Antibiotics: Rocephin Vancomycin Lines: Lines ok Past Medical History: reviewed Allergies/Adverse Reactions: Allergies doxycycline Allergy (Severe, Verified 10/03/18 20:08) Anaphylaxis sulfamethoxazole Allergy (Severe, Verified 10/03/18 20:08) Anaphylaxis trimethoprim Allergy (Severe, Verified 10/03/18 20:08) Anaphylaxis Objective Vital Signs 10/07/18 20:00 10/07/18 22:40 10/08/18 02:40 Temperature 98.6 F 98.4 F Pulse Rate 94 H 95 H 92 H Respiratory Rate 20 20 Blood Pressure 126/57 L 124/64 Pulse Oximetry 98 100 10/08/18 06:30 10/08/18 10:57 10/08/18 12:00 Temperature 100.2 F H 100 F H 99.7 F H Pulse Rate 94 H 104 H Respiratory Rate 20 18 Blood Pressure 115/55 L 131/74 Pulse Oximetry 99 97 Intake & Output 10/07/18 10/08/18 10/08/18 18:59 06:59 18:59 Intake Total 1680 / 1680 895 / 895 Output Total 1400 / 1400 800 / 800 Balance 280 / 280 95 / 95 Intake: IV 615 / 615 Vancomycin Inj 1,500 MG In NS 515 / 515 Inj 500 ML @ 250 mls/hr IV.SIG ONCE ONE Rx#:[id number] Rocephin Inj 1,000 MG In NS Inj 100 / 100 100 ML @ 200 mls/hr IV.SIG Q24H LINDA Rx#:[id number] Oral 1680 / 1680 280 / 280 Output: Urine 1400 / 1400 800 / 800 Other: # Voids 0 Date of Last Bowel Movement 10/07/17 # Bowel Movements 1 10/05/18 14:48 Fluid - Other Fungal Smear - Final No fungal elements seen 10/05/18 14:48 Fluid - Other Fungal Culture - Pending 10/03/18 21:45 Blood - Peripheral Aerobic Blood Culture - Final No growth in 5 days 10/03/18 21:45 Blood - Peripheral Anaerobic Blood Culture - Final No growth in 5 days 10/03/18 20:00 Blood - Peripheral Aerobic Blood Culture - Final No growth in 5 days 10/03/18 20:00 Blood - Peripheral Anaerobic Blood Culture - Final No growth in 5 days 10/05/18 14:48 Fluid - Other Acid Fast Bacilli Smear - Final No acid fast bacilli seen 10/05/18 14:48 Fluid - Other Mycobacterial Culture - Pending 10/05/18 14:48 Fluid - Other Gram Stain - Final 10/05/18 14:48 Fluid - Other Wound Culture - Final No growth in 72 hours (aerobically and anaerobically ) Lab - Hematology Results 10/08/18 04:37 WBC 15.7 H RBC 2.46 L Hgb 7.8 L Hct 23.4 L MCV 95.3 MCH 31.9 MCHC 33.4 RDW 17.8 H Plt Count MPV 11.6 H Prelim Diff (Auto) Slide review pending Neut % (Auto) 33.6 Lymph % (Auto) 53.4 H [place] % (Auto) 7.5 Eos % (Auto) 0.4 Baso % (Auto) 5.1 H Neut # (Auto) 5.3 Lymph # (Auto) 8.4 H [place] # (Auto) 1.2 H Eos # (Auto) 0.1 Baso # (Auto) 0.8 H WBC Differential Manual diff final Seg Neuts % (Manual) 49 Band Neuts % (Manual) 5 Lymphocytes % (Manual) 35 Monocytes % (Manual) 6 Eosinophils % (Manual) 2 Basophils % (Manual) 3 H Abs Neuts (Manual) 8.5 H Differential Comment . Platelet Estimate Normal Platelet Morphology Enlarged H Target Cells 1+ H Red-[place] Bodies Present H Lab - Chemistry Results 10/07/18 10/07/18 10/07/18 09:50 09:50 09:50 Sodium Potassium Chloride Carbon Dioxide Anion Gap BUN Creatinine Estimated GFR Random Glucose Calcium Total Bilirubin AST ALT Alkaline Phosphatase C-Reactive Protein 8.50 H Total Protein Albumin Carcinoembryonic Ag 1.6 CA 15-3 Antigen 5.8 CA 19-9 Antigen 17.3 CA 125 Antigen 8.6 10/08/18 10/08/18 04:37 10:20 Sodium 141 Potassium 4.2 Chloride 104 Carbon Dioxide 28.8 Anion Gap 8 BUN 24 H Creatinine 2.10 H 2.15 H Estimated GFR 29 L 28 L Random Glucose 85 Calcium 9.1 Total Bilirubin 0.3 AST 13 L ALT 12 Alkaline Phosphatase 64 C-Reactive Protein Total Protein 7.8 Albumin 2.2 L Carcinoembryonic Ag CA 15-3 Antigen CA 19-9 Antigen CA 125 Antigen Imaging: ITS Impressions Needle Biopsy/Aspiration X-Ray 10/05/18 00:00 CONCLUSION: 1. Uncomplicated L3-L4 disc aspiration as above. Abdomen/Pelvis CT 10/05/18 10:07 CONCLUSION: 1. There are advanced degenerative changes throughout the lumbar spine. There is some cortical irregularity of the vertebral endplates across the L3/4 disc level. Presumably there is outside cross-sectional imaging through this area. There was concern for possible abscess in the iliopsoas muscle. There is some subtle decreased attenuation in the muscle on the left side just beneath the L3- 4 disc space but I do not see a definite defined drainable collection by noncontrast imaging. If possible, postcontrast imaging may be of benefit for more definitive assessment. 2. There are 2 low-attenuation lesions within the liver. These are too small to definitively characterize by noncontrast CT. 3. The patient is post splenectomy. Physical Exam: GENERAL: Morbidly obese well-developed, not in acute distress SKIN: Cool and dry, no generalized rash HEAD: Atraumatic. Normocephalic. No temporal or scalp tenderness. EYES: Pupils equal round and reactive. Scleral icterus. No injection or drainage. No petechia ENT: Nothing abnormal detected NECK: Trachea midline. Supple, nontender, no meningeal signs. CARDIOVASCULAR: HS audible. RESPIRATORY: Clear to auscultation bilaterally. GASTROINTESTINAL: Abdomen soft nontender. MUSCULOSKELETAL: Extremities without clubbing, cyanosis. Total knee replacement site with no evidence of infection. NEUROLOGICAL: Alert oriented 3. Nonfocal. Psych cooperative IV line sites ok. Assessment and Plan - Plan Suspected L4-L5 discitis Prior history of lymphoma status post radiation therapy now in remission. Morbid obesity BMI 37.9 kg/m square Allergy to doxycycline and Bactrim reported as airway swelling. Chronic kidney disease age 2 Recs: On Rocephin DC IV Vancomycin Follow C/S Cultures prob will be negative - she got 2 doses IV vanco 10/04 and 10/05, and 4 doses of IV Zosyn last dose given 09/24 Check tumor markers CA-19-9,CEA,AFP. Monitor progress Discussed with patient Parth Gil low suspicion for malignancy as it is a disc disease and not body. He will review again and get back. parth ORDOÑEZ for Hepas
[2018-10-09] MEDS ORDERED: Naloxone Inj 0.4 MG/ML Vial ONE (00:15)
[2018-10-09 00:27] LABS: ABG Base Excess 1.8 mmol/L (-2-2); ABG PCO2 62 mmHg (38-42); ABG PO2 69 mmHg (61-120)
--- NOTE | 2018-10-09 00:30 | P.PNADD ---
Addendum to Inpatient Note Additional information: Resident team paged for halicat. According to nursing staff patient became afebrile with a fever of 102.3. When performing routine neuro checks patient increased lethargy and less vocal response. According to nursing staff at baseline patient responds in complete sentences. Patient was following commands but not answering nursing questions. Patient was stating at 95%. Patient placed on oxygen and increased to 88%. Patient then put on simple mask and increased to 92%. When resident team arrived patient was on 3 L of nasal cannula at 94%. According to nursing staff patient took Flexeril, Ambien, Lyrica, and Percocet this evening. O: HR 112 BP 108/55 3 L NC stating 96% GENERAL: Lethargic and responding to commands with head movements SKIN: Warm and dry. HEAD: Atraumatic. Normocephalic. EYES: Pupils equal and round. Pinpoint pupils. No scleral icterus. No injection or drainage. ENT: No nasal bleeding or discharge. Mucous membranes pink and dry. NECK: Trachea midline. No JVD. CARDIOVASCULAR: Regular rate and rhythm. RESPIRATORY: No accessory muscle use. Breath sounds equal bilaterally. Decreased air movement and pain with leaning forward so difficult to access for wheezes or crackles. GASTROINTESTINAL: Abdomen soft, non-tender, nondistended. Hepatic and splenic margins not palpable. MUSCULOSKELETAL: Extremities without clubbing, cyanosis, or edema. No obvious deformities. Pain to palpation of legs and feet. NEUROLOGICAL: Drowsy. moans and no words. moving extremities when touched PSYCHIATRIC: Appropriate mood and affect; insight and judgment normal. A/P: 62-year-old female with a past medical history significant for hypertension and hypothyroidism presents to the emergency department for the evaluation of lower back pain admitted for osteomyelitis. Halicat for altered mental status and decreased O2 saturation. DDX infection, polypharmacy, CHF, anemia. Given patient's response to Narcan, altered mental status most likely due to polypharmacy -ABG: PH 7.28 space CO2 62 O2 69; findings most likely due to decreased respiratory drive; nurses instructed to repeat ABG if patient had an altered mental status -Patient given 0.4 mg of Narcan: Immediately became responsive answering in full sentences; was oriented to person place and time. Canceled EKG and chest x -ray -Given fevers blood cultures and lactic acid were ordered -IV Tylenol 1 g -Called nursing staff and instructed to notify physician of Hemoglobin of 7.1. Earlier today hemoglobin was 7.8 and on the 17th was 8.0 and on the 14th was 9.5. Recommended considering hemocult, blood transfusion, and GI consult. Patient not currently on any anticoagulation. Given the improvement of the patient's mental status after Narcan, do not believe that this drop in hemoglobin was the cause of the patient's altered status. Gave nursing staff number for physician to contact residents with any questions. Dr. Turcios spoke with nurse practitioner of [facility] to offer the above recommendations.
[2018-10-09 04:38] LABS: Calcium 9.3 mg/dL (8.5-10.1); Carbon Dioxide 30.3 meq/L (21.0-32.0); Potassium 4.4 meq/L (3.5-5.1); Vancomycin,Random 22.9 Comment
[2018-10-09 04:45] LABS: Baso # (Auto) 0.5 th/mm3 (0.0-0.2); Baso % (Auto) 2.4 % (0.0-2.0); Eos # (Auto) 0.1 th/mm3 (0.0-0.4); Eos % (Auto) 0.3 % (0.0-4.0); Hematocrit 21.3 % (35.0-46.0); Hemoglobin 7.1 gm/dL (11.6-15.3); Lymph % (Auto) 35.6 % (9.0-44.0); Mean Corpuscular HGB Conc 33.2 % (32.0-36.0); Mean Corpuscular Hemoglobin 31.8 pg (27.0-34.0); Mean Corpuscular Volume 95.5 fL (80.0-100.0); Mean Platelet Volume 11.9 fL (7.0-11.0); Mono # (Auto) 1.4 th/mm3 (0.0-0.9); Mono % (Auto) 7.1 % (0.0-8.0); Neut # (Auto) 10.7 th/mm3 (1.8-7.7); Neut % (Auto) 54.6 % (16.0-70.0); Red Blood Count 2.23 mil/mm3 (4.00-5.30); Red Cell Distribution Width 16.7 % (11.6-17.2); White Blood Count 19.6 th/mm3 (4.0-11.0)
[2018-10-09 05:34] LABS: Eosinophils 1 % (0-4); Lymphocytes 21 % (9-44); Monocytes 4 % (0-8); Tallied Nucleated RBC 1 (0-0)
[2018-10-09 05:35] LABS: Platelet Estimate Normal (Normal)
[2018-10-09 05:36] LABS: Howell-Jolly Bodies Present; Target Cells 1+
[2018-10-09 05:37] LABS: Toxic Vacuolation Present
[2018-10-09 05:39] LABS: Dohle Bodies Present
[2018-10-09] MEDS: Levothyroxine 112 MCG Tablet PO SCH (05:49)
[2018-10-09] MEDS: Calcitriol 0.25 MCG Capsule PO SCH (09:52)
[2018-10-09] MEDS: Senna/Docusate Sodium 8.6/50 MG Tablet PO SCH ×2 (09:52→22:41)
[2018-10-09] MEDS: Sodium Chloride 0.9% 2 ML Flush BID IV.FLUSH SCH ×2 (09:53→22:42)
[2018-10-09] MEDS: Pantoprazole Sodium 20 MG DR Tablet PO SCH ×2 (09:53→22:41)
[2018-10-09] MEDS: amLODIPine 10 MG Tablet PO SCH (09:53)
[2018-10-09] MEDS: Atenolol 50 MG Tablet PO SCH (09:53)
[2018-10-09] MEDS ORDERED: Sodium Chlor 0.9% Inj 250 ML IV.SIG SCH (10:00)
--- NOTE | 2018-10-09 10:51 | P.PNIM ---
Subjective Interval history: Follow-up visit possible lumbar spine osteomyelitis, leukocytosis, chronic anemia, HTN. Patient seen and examined today. Appears shivering, complains that she is severely cold. States that she is unable to remember what is going on. States that she remembers me however she cannot remember the recurrence of anything happening to her overnight. Complains of chills. On NC O2. Denies chest pain, palpitations, headaches, dizziness. Denies n/v/d. Denies dysuria. Physical Exam Vital signs: Vital Signs 10/08/18 10:57 10/08/18 12:00 10/08/18 15:45 Temperature 100 F H 99.7 F H 99.2 F Pulse Rate 104 H 102 H Respiratory Rate 18 16 Blood Pressure 131/74 132/55 L Pulse Oximetry 97 96 10/08/18 20:00 10/09/18 00:00 10/09/18 00:20 Temperature 98.1 F 102.3 F H Pulse Rate 96 H 124 H Respiratory Rate 20 20 Blood Pressure 141/74 H 127/60 Pulse Oximetry 94 L 95 95 10/09/18 04:00 10/09/18 06:39 10/09/18 08:00 Temperature 96.8 F L 98.3 F 97.0 F L Pulse Rate 96 H 92 H 98 H Respiratory Rate 20 18 18 Blood Pressure 94/47 L 101/47 L 113/54 L Pulse Oximetry 99 99 100 Intake & Output 10/08/18 10/09/18 10/09/18 18:59 06:59 18:59 Intake Total 100 / 100 160 / 160 Balance 100 / 100 160 / 160 Weight 124.7 kg Intake: IV 100 / 100 100 / 100 Ofirmev Inj 1,000 mg In 100 ml 100 / 100 @ 400 mls/hr IV.SIG ONCE ONE Rx #:[id number] Rocephin Inj 1,000 MG In NS Inj 100 / 100 100 ML @ 200 mls/hr IV.SIG Q24H [facility] Rx#:[id number] Oral 60 / 60 Other: # Voids 1 Date of Last Bowel Movement 10/07/17 Narrative: GENERAL: This is a well-nourished, well-developed patient, mildly distress. SKIN: Warm and dry. HEENT: Normocephalic. Pupils equal round and reactive. Nose without bleeding. Airway patent. NECK: Trachea midline. CARDIOVASCULAR: Regular rate and rhythm without murmurs, gallops, or rubs. RESPIRATORY: Diminished bases. No wheezes, rales, or rhonchi. GASTROINTESTINAL: Abdomen soft, non-tender. Bowel Sounds normoactive x4. MUSCULOSKELETAL: Extremities without clubbing, cyanosis, or edema. NEUROLOGICAL: Awake and alert. Moves all extremities, weak BLE . Normal speech. Appears confused. Does not know date, unable to recall events. Results - Labs CBC & Chem 7: 10/09/18 20:35 10/09/18 04:01 Laboratory Results - last 24 hr 10/08/18 10/09/18 10/09/18 10:20 00:05 00:17 WBC RBC Hgb Hct MCV MCH MCHC RDW Plt Count MPV Prelim Diff (Auto) Neut % (Auto) Lymph % (Auto) [place] % (Auto) Eos % (Auto) Baso % (Auto) Neut # (Auto) Lymph # (Auto) [place] # (Auto) Eos # (Auto) Baso # (Auto) WBC Differential Seg Neuts % (Manual) Band Neuts % (Manual) Lymphocytes % (Manual) Monocytes % (Manual) Eosinophils % (Manual) Basophils % (Manual) Abs Neuts (Manual) Nucleated RBCs/100 WBC Differential Comment Toxic Vacuolation Dohle Bodies Platelet Estimate Platelet Morphology Target Cells Red[place] Bodies Puncture Site Right radial Patient Temperature 98.6 O2 Saturation 90 ABG pH 7.28 L* ABG pCO2 62 H* ABG pO2 69 ABG HCO3 28 H ABG O2 Content 9.0 L ABG Base Excess 1.8 ABG Methemoglobin 0.9 Rocky Test Present Hemoglobin 7.1 L* Carboxyhemoglobin 2.1 O2 Delivery Device Nasal cannula Liter Flow 3.00 Critical Value Yes Sodium Potassium Chloride Carbon Dioxide Anion Gap BUN Creatinine 2.15 H Estimated GFR 28 L POC Glucose 156 H Random Glucose Lactic Acid Calcium Random Vancomycin 10/09/18 10/09/18 10/09/18 00:40 04:01 04:01 WBC 19.6 H RBC 2.23 L Hgb 7.1 L Hct 21.3 L MCV 95.5 MCH 31.8 MCHC 33.2 RDW 16.7 Plt Count MPV 11.9 H Prelim Diff (Auto) Slide review pending Neut % (Auto) 54.6 Lymph % (Auto) 35.6 [place] % (Auto) 7.1 Eos % (Auto) 0.3 Baso % (Auto) 2.4 H Neut # (Auto) 10.7 H Lymph # (Auto) 7.0 H [place] # (Auto) 1.4 H Eos # (Auto) 0.1 Baso # (Auto) 0.5 H WBC Differential Manual diff final Seg Neuts % (Manual) 68 Band Neuts % (Manual) 4 Lymphocytes % (Manual) 21 Monocytes % (Manual) 4 Eosinophils % (Manual) 1 Basophils % (Manual) 2 Abs Neuts (Manual) 14.1 H Nucleated RBCs/100 WBC 1 H Differential Comment . Toxic Vacuolation Present H Dohle Bodies Present H Platelet Estimate Normal Platelet Morphology Enlarged H Target Cells 1+ H [place] Bodies Present H Puncture Site Patient Temperature O2 Saturation ABG pH ABG pCO2 ABG pO2 ABG HCO3 ABG O2 Content ABG Base Excess ABG Methemoglobin Rocky Test Hemoglobin Carboxyhemoglobin O2 Delivery Device Liter Flow Critical Value Sodium 140 Potassium 4.4 Chloride 103 Carbon Dioxide 30.3 Anion Gap 7 BUN 30 H Creatinine 2.66 H Estimated GFR 22 L POC Glucose Random Glucose 105 Lactic Acid 1.4 Calcium 9.3 Random Vancomycin 22.9 Microbiology 10/05/18 14:48 Fluid - Other Fungal Smear - Final No fungal elements seen 10/03/18 21:45 Blood - Peripheral Aerobic Blood Culture - Final No growth in 5 days 10/03/18 21:45 Blood - Peripheral Anaerobic Blood Culture - Final No growth in 5 days 10/03/18 20:00 Blood - Peripheral Aerobic Blood Culture - Final No growth in 5 days 10/03/18 20:00 Blood - Peripheral Anaerobic Blood Culture - Final No growth in 5 days 10/05/18 14:48 Fluid - Other Acid Fast Bacilli Smear - Final No acid fast bacilli seen 10/05/18 14:48 Fluid - Other Gram Stain - Final 10/05/18 14:48 Fluid - Other Wound Culture - Final No growth in 72 hours (aerobically and anaerobically ) Assessment and Plan - Plan Patient is a 62-year-old female with a past medical history significant for hypertension, CKD and hypothyroidism presents to the emergency department for the evaluation of lower back pain. HALICAT last night -Reported to be somnolent. Unarousable. -Per review of records patient took Ambien, Lyrica, Percocet medication last night and unable to wake up -Narcan was given. Patient was provided with O2 nasal cannula, her O2 saturation on 3 L nasal cannula is 94% Anemia, acute -Hemoglobin 7.1/21.3, Hemoccult ordered -Shortness of breath, fatigue -1 unit PRBC transfusion ordered, Lasix after -Repeat H&H posttransfusion -Consult GI if warranted SIRS, sepsis rule out Leukocytosis -13.2 --> 11 -->15.7 --> 19.6 -Chest x-ray questionable subtle small infiltrate in the medial right upper lobe -On ceftriaxone, possible aspiration. Start cefepime discontinue ceftriaxone as per ID -ID following, appreciate recommendations -Monitor respiratory status Encephalopathy, acute possibly toxic metabolic secondary to drug ingestion -CT of the head negative, no evidence of acute infarct hemorrhage or mass edema -Check labs Possible osteomyelitis of the lumbar spine Patient had outpatient MRI done which showed possible osteomyelitis of L3/L4 ( disc in patient's chart) Patient with leukocytosis, elevated ESR/CRP -Blood cultures show no growth times 2 days, follow until finalized -ID following, appreciate assistance. CT a/p neg for iliopsoas abscess. Tumor markers CA 199, CEA - WNL. AFP pending -CT guided bx with IR done Follow up on cx. No pathology sent -IV Vancomycin and Ceftriaxone after bx obtained. Vanco held - 10/08 -Neurosurgery consulted, appreciate assistance. No surgical intervention at this time. -Pain management as ordered, Lyrica 75 twice daily, morphine IV for breakthrough pain, Percocet, continue with bowel regimen -given throughout the night with respiratory status depressed. Narcan given - 10/09/18 -10/09/18 Repeat lumbar MRI of the spine showed changes consistent with discitis at L3-L4 without abscess. Diffuse degenerative changes without central canal stenosis. Potential left L3 neural foraminal impingement. Hypertension/hypothyroidism -Continue home medications atenolol 50 mg daily, with parameters, Synthroid -Monitor BP trend Chronic kidney disease Creatinine near baseline for the patient -Avoid nephrotoxic agents -Monitor renal function as indicated -Elevated LANG[employer]AGES [employer]CTOR 2.15 -->2.66 Constipation, chronic -initiate bowel regimen -monitor BM pattern Hx of lymphoma s/p radiation therapy, in remission -Follow-up in the outpatient DVT prophylaxis bilateral SCD/TRINITY hose CODE STATUS Full code Discussed with patient, nursing, Dr. Louise, Discharge Planning: DC when cleared by infectious disease. Pending biopsy results
--- NOTE | 2018-10-09 11:22 | MR ---
EXAM DATE: 10/09/2018 11:08 AM EST AGE/SEX: 62 years / Female INDICATIONS: . Discitis. CLINICAL DATA: This is the patient's initial encounter. Patient reports that signs and symptoms have been present for 4 - 6 days and indicates a pain score of 4/10. MEDICAL/SURGICAL HISTORY: Hypertension. Chronic renal insufficiency. Cholecystectomy. Splenec dao. Thyroidectomy. Bilateral knee replacements. COMPARISON: No prior exams available for comparison. TECHNIQUE: Multiplanar, multisequence MRI of the lumbar spine was performed without contrast. Patie nt was scanned in a sitting position; neutral, flexion, and extension scans were performed in the sa gittal plane. FINDINGS: Vertebra: Marrow edema is seen involving the endplates adjacent to the L3-L4 disc space. This is mor e pronounced anteriorly. The remaining marrow signal is homogeneous. Vertebral body heights are maint ained.. Conus: Normal level and configuration. Multiple small cortical renal cysts bilaterally. T12-L1: The thecal sac has a normal diameter. No evidence of disc bulge or protrusion. The neural foramina are patent bilaterally. L1-L2: Mild disc desiccation and minimal loss of height. A minimal broad-based bulge. Lateral reces ses and central canal are patent. Moderate bony hypertrophy of the facet joints. Neural foramina are patent.. L2-L3: Considerable disc space narrowing with anterior osteophyte production. A minimal broad-based disc osteophyte complex. Lateral recesses and central canal are patent. Neural foramina are patent. Facet joints are unremarkable.. L3-L4: There is edema seen involving the disc space most pronounced anteriorly. There is loss of he ight of the disc space as well. A left posterior lateral disc bulge in combination with mild bony hyp ertrophy of the facets causes narrowing of the left lateral recess and potential impingement of the l eft L3 nerve root. The central canal and lateral recesses are patent. Right neural foramen is patent. L4-L5: Disc desiccation with minimal loss of height. A minimal broad-based bulge. Mild ligamentum f lavum hypertrophy of the facets. Lateral recesses and central canal are patent. Neural foramen are pa tent. L5-S1: Disc desiccation with mild disc space narrowing. A minimal broad-based disc bulge eccentric to the left. This encroaches upon the inferior aspects of the left neural foramen but does not abut t he exiting nerve root. Central canal, lateral recesses, and right neural foramen are patent. CONCLUSION: 1. Changes consistent with discitis at L3-L4 without abscess. 2. Diffuse degenerative changes without central canal stenosis. Potential left L3 neural foraminal i mpingement. Details given above. Electronically signed by: Brannon Manzano MD 10/09/2018 11:20 AM EST
--- NOTE | 2018-10-09 11:30 | CT ---
EXAM DATE: 10/09/2018 11:23 AM EST AGE/SEX: 62 years / Female INDICATIONS: Altered mental status. CLINICAL DATA: This is the patient's initial encounter. Patient reports that signs and symptoms have been present for 1 day and indicates a pain score of 0/10. MEDICAL/SURGICAL HISTORY: Hypertension. Cholecystectomy. Splenectomy. Thyroidectomy. RADIATION DOSE: 20.33 CTDI (mGy) COMPARISON: No prior exams available for comparison. TECHNIQUE: CT of the head without contrast. Using automated exposure control and adjustment of the mA and/or kV according to patient size, radiation dose was kept as low as reasonably achievable to ob tain optimal diagnostic quality images. DICOM format image data is available electronically for revi ew and comparison. FINDINGS: Cerebrum: The ventricles are normal for age. No evidence of midline shift, mass lesion, hemorrhage or acute infarction. No extraaxial fluid collections are seen. Posterior Fossa: The cerebellum and brainstem are intact. The 4th ventricle is midline. The cerebe llopontine angle is unremarkable. Extracranial: The visualized portion of the orbits is intact. Skull: The calvaria is intact. No evidence of skull fracture. CONCLUSION: 1. Negative CT Head non contrast. 2. No evidence of acute infarct, hemorrhage, mass or edema. . Electronically signed by: Frederick Rasmussen MD 10/09/2018 11:29 AM EST
--- NOTE | 2018-10-09 11:34 | XR ---
EXAM DATE: 10/09/2018 11:31 AM EST AGE/SEX: 62 years / Female INDICATIONS: Fever CLINICAL DATA: This is the patient's subsequent encounter. Patient reports that signs and symptoms h ave been present for 4 - 6 days and indicates a pain score of 0/10. MEDICAL/SURGICAL HISTORY: Hypertension. Chronic renal insufficiency. Cholelithiasis. Cholecys tectomy. Splenectomy. Thyroidectomy. COMPARISON: [facility] [place]ST 1V SINGLE AP, 07/09/2018. . FINDINGS: A single AP view of the chest demonstrates a subtle area of consolidation involving the medial right upper lobe. The remaining lungs are clear. Heart is mildly enlarged. No effusions. A degenerative tho racic spine. CONCLUSION: Questionable subtle small infiltrate in the medial right upper lobe. Electronically signed by: Brannon Manzano MD 10/09/2018 11:33 AM EST
[2018-10-09] MEDS: Pregabalin 75 MG Capsule PO SCH ×2 (13:00→22:41)
--- NOTE | 2018-10-09 14:27 | P.PNID ---
Subjective Remarks: Ms. Ontiveros is a 62-year-old -[place] female with past medical history significant for lymphoma status post radiation therapy alone in 1973. Thereafter patient reports she has had a repeat PET scan a couple years back which is negative for any recurrence of lymphoma. Patient does follow-up with Dr. Thomson are hematology oncology physician for chronic anemia. Patient reports that she has received Neupogen in the past but more recently she has been unable to afford the co-pay and therefore stopped it. Patient also reports a history of chronic kidney disease stage III progressing to stage IV and she sees possibly Dr. Hai Salmon as outpatient. She reports she has not been on dialysis and does not have any AV fistula. Patient also reports that she has been diagnosed with possibly rheumatoid arthritis as well as osteoarthritis and has had chronic back pain for many years. Her medical records also reveal chronic obesity with its complications such as osteoarthritis needing bilateral total knee replacements. Upon review of medical records it appears that patient was admitted in April 2018 for E. coli UTI as well as transient E. coli bacteremia treated with oral cephalosporin. Thereafter patient reports she was doing fairly okay up until 3-4 weeks prior to admission. Approximately 3-4 weeks prior to admission patient started noticing lower back pain that radiated to the left side and down her left lower extremity. She denies any fever chills or night sweats. She denies any bowel bladder incontinence. She denies any paresthesias or saddle anesthesia. She reports that at baseline she uses a walker since the year 2001 even before her total knee replacements. She reports that at baseline she is able to ambulate with a walker but most of the chores at home as well as cooking are done by her . Patient was seen by her primary care physician who performed an MRI of the spine as outpatient. Due to concern for osteomyelitis of the spine patient was referred to outpatient infectious disease Dr. Boothe who then recommended the patient be admitted to the hospital based on a phone conversation with her primary care physician. After admission patient has been evaluated by neurosurgery. Upon my discussion with neurosurgery it appears that there is no epidural abscess or drainable focus at this time. Due to concern for osteomyelitis of the spine and leukocytosis CT-guided lumbar spine biopsy would be recommended. Infectious diseases consulted for evaluation and management of spinal discitis/ osteomyelitis. Notes reviewed Had repeat MRI spine Also noted Brayden called last night for AMS: Narcan helped ? pain and other meds combination. C/O back pain robert with any movement Also notes some pain on top of both feet No fever No rash No diarrhea Antibiotics: Rocephin Lines: Lines ok Past Medical History: reviewed Allergies/Adverse Reactions: Allergies doxycycline Allergy (Severe, Verified 10/03/18 20:08) Anaphylaxis sulfamethoxazole Allergy (Severe, Verified 10/03/18 20:08) Anaphylaxis trimethoprim Allergy (Severe, Verified 10/03/18 20:08) Anaphylaxis Objective Vital Signs 10/08/18 15:45 10/08/18 20:00 10/09/18 00:00 Temperature 99.2 F 98.1 F 102.3 F H Pulse Rate 102 H 96 H 124 H Respiratory Rate 16 20 20 Blood Pressure 132/55 L 141/74 H 127/60 Pulse Oximetry 96 94 L 95 10/09/18 00:20 10/09/18 04:00 10/09/18 06:39 Temperature 96.8 F L 98.3 F Pulse Rate 96 H 92 H Respiratory Rate 20 18 Blood Pressure 94/47 L 101/47 L Pulse Oximetry 95 99 99 10/09/18 08:00 10/09/18 12:00 Temperature 97.0 F L 98.4 F Pulse Rate 98 H 107 H Respiratory Rate 18 17 Blood Pressure 113/54 L 140/67 Pulse Oximetry 100 98 Intake & Output 10/08/18 10/09/18 10/09/18 18:59 06:59 18:59 Intake Total 100 / 100 160 / 160 Balance 100 / 100 160 / 160 Weight 124.7 kg Intake: IV 100 / 100 100 / 100 Ofirmev Inj 1,000 mg In 100 ml 100 / 100 @ 400 mls/hr IV.SIG ONCE ONE Rx #:[id number] Rocephin Inj 1,000 MG In NS Inj 100 / 100 100 ML @ 200 mls/hr IV.SIG Q24H [facility] Rx#:[id number] Oral 60 / 60 Other: # Voids 1 Date of Last Bowel Movement 10/07/17 10/09/18 00:35 Blood - Other Aerobic Blood Culture - Pending 10/09/18 00:35 Blood - Other Anaerobic Blood Culture - Pending 10/09/18 00:40 Blood - Other Aerobic Blood Culture - Pending 10/09/18 00:40 Blood - Other Anaerobic Blood Culture - Pending 10/05/18 14:48 Fluid - Other Fungal Smear - Final No fungal elements seen 10/05/18 14:48 Fluid - Other Fungal Culture - Pending 10/03/18 21:45 Blood - Peripheral Aerobic Blood Culture - Final No growth in 5 days 10/03/18 21:45 Blood - Peripheral Anaerobic Blood Culture - Final No growth in 5 days 10/03/18 20:00 Blood - Peripheral Aerobic Blood Culture - Final No growth in 5 days 10/03/18 20:00 Blood - Peripheral Anaerobic Blood Culture - Final No growth in 5 days 10/05/18 14:48 Fluid - Other Acid Fast Bacilli Smear - Final No acid fast bacilli seen 10/05/18 14:48 Fluid - Other Mycobacterial Culture - Pending 10/05/18 14:48 Fluid - Other Gram Stain - Final 10/05/18 14:48 Fluid - Other Wound Culture - Final No growth in 72 hours (aerobically and anaerobically ) Lab - Hematology Results 10/08/18 10/09/18 04:37 04:01 WBC 15.7 H 19.6 H RBC 2.46 L 2.23 L Hgb 7.8 L 7.1 L Hct 23.4 L 21.3 L MCV 95.3 95.5 MCH 31.9 31.8 MCHC 33.4 33.2 RDW 17.8 H 16.7 Plt Count MPV 11.6 H 11.9 H Prelim Diff (Auto) Slide review pending Slide review pending Neut % (Auto) 33.6 54.6 Lymph % (Auto) 53.4 H 35.6 [place] % (Auto) 7.5 7.1 Eos % (Auto) 0.4 0.3 Baso % (Auto) 5.1 H 2.4 H Neut # (Auto) 5.3 10.7 H Lymph # (Auto) 8.4 H 7.0 H [place] # (Auto) 1.2 H 1.4 H Eos # (Auto) 0.1 0.1 Baso # (Auto) 0.8 H 0.5 H WBC Differential Manual diff final Manual diff final Seg Neuts % (Manual) 49 68 Band Neuts % (Manual) 5 4 Lymphocytes % (Manual) 35 21 Monocytes % (Manual) 6 4 Eosinophils % (Manual) 2 1 Basophils % (Manual) 3 H 2 Abs Neuts (Manual) 8.5 H 14.1 H Nucleated RBCs/100 WBC 1 H Differential Comment . . Toxic Vacuolation Present H Dohle Bodies Present H Platelet Estimate Normal Normal Platelet Morphology Enlarged H Enlarged H Target Cells 1+ H 1+ H Red-[place] Bodies Present H Present H Lab - Chemistry Results 10/08/18 10/08/18 10/09/18 04:37 10:20 00:05 Sodium 141 Potassium 4.2 Chloride 104 Carbon Dioxide 28.8 Anion Gap 8 BUN 24 H Creatinine 2.10 H 2.15 H Estimated GFR 29 L 28 L POC Glucose 156 H Random Glucose 85 Lactic Acid Calcium 9.1 Total Bilirubin 0.3 AST 13 L ALT 12 Alkaline Phosphatase 64 Total Protein 7.8 Albumin 2.2 L 10/09/18 10/09/18 00:40 04:01 Sodium 140 Potassium 4.4 Chloride 103 Carbon Dioxide 30.3 Anion Gap 7 BUN 30 H Creatinine 2.66 H Estimated GFR 22 L POC Glucose Random Glucose 105 Lactic Acid 1.4 Calcium 9.3 Total Bilirubin AST ALT Alkaline Phosphatase Total Protein Albumin Imaging: ITS Impressions Needle Biopsy/Aspiration X-Ray 10/05/18 00:00 CONCLUSION: 1. Uncomplicated L3-L4 disc aspiration as above. Abdomen/Pelvis CT 10/05/18 10:07 CONCLUSION: 1. There are advanced degenerative changes throughout the lumbar spine. There is some cortical irregularity of the vertebral endplates across the L3/4 disc level. Presumably there is outside cross-sectional imaging through this area. There was concern for possible abscess in the iliopsoas muscle. There is some subtle decreased attenuation in the muscle on the left side just beneath the L3- 4 disc space but I do not see a definite defined drainable collection by noncontrast imaging. If possible, postcontrast imaging may be of benefit for more definitive assessment. 2. There are 2 low-attenuation lesions within the liver. These are too small to definitively characterize by noncontrast CT. 3. The patient is post splenectomy. Chest X-Ray 10/09/18 00:00 CONCLUSION: Questionable subtle small infiltrate in the medial right upper lobe. Head CT 10/09/18 00:00 CONCLUSION: 1. Negative CT Head non contrast. 2. No evidence of acute infarct, hemorrhage, mass or edema. . Lumbar Spine MRI 10/09/18 00:00 CONCLUSION: 1. Changes consistent with discitis at L3-L4 without abscess. 2. Diffuse degenerative changes without central canal stenosis. Potential left L3 neural foraminal impingement. Details given above. Physical Exam: GENERAL: Morbidly obese well-developed, not in acute distress SKIN: Cool and dry, no generalized rash HEAD: Atraumatic. Normocephalic. No temporal or scalp tenderness. EYES: Pupils equal round and reactive. Scleral icterus. No injection or drainage. No petechia ENT: Nothing abnormal detected NECK: Trachea midline. Supple, nontender, no meningeal signs. CARDIOVASCULAR: HS audible. RESPIRATORY: Clear to auscultation bilaterally. GASTROINTESTINAL: Abdomen soft nontender. MUSCULOSKELETAL: Extremities without clubbing, cyanosis. Total knee replacement site with no evidence of infection. NEUROLOGICAL: Alert oriented 3. Nonfocal. Psych cooperative IV line sites ok. Assessment and Plan - Plan Suspected L4-L5 discitis Prior history of lymphoma status post radiation therapy now in remission. Morbid obesity BMI 37.9 kg/m square Allergy to doxycycline and Bactrim reported as airway swelling. Chronic kidney disease age 2 Recs: DC Rocephin Start Cefepime IV for possible aspiration. With AMS concern she may have aspirated. Get CXR. Cultures prob will be negative - she got 2 doses IV vanco 10/04 and 10/05, and 4 doses of IV Zosyn last dose given 09/24 Check tumor markers CA-19-9,CEA,AFP. Monitor progress Discussed with patient parth [id number] for Hepas
[2018-10-09] MEDS: oxyCODONE/Acetaminophen 10/325 Tablet PO PRN (16:36)
[2018-10-09 18:34] LABS: Amorphous Sediment,Urine Rare /hpf; Bacteria,Urine Moderate /hpf; Bilirubin,Urine Negative (Negative); Clarity,Urine Cloudy (Clear); Color,Urine Yellow (Yellw/Straw); Glucose,Urine (UA) Negative (Negative); Leukocyte Esterase,Urine Trace (Negative); Mucus,Urine Few /lpf (Occasional); Nitrite,Urine Negative (Negative); Specific Gravity,Urine 1.015 (1.002-1.035); Squamous Epithelial Cell,Urine 2 /hpf (0-5)
[2018-10-09 21:03] LABS: Hematocrit 26.6 % (35.0-46.0); Hemoglobin 8.9 gm/dL (11.6-15.3)
[2018-10-10] MEDS: oxyCODONE/Acetaminophen 10/325 Tablet PO PRN (05:06)
[2018-10-10] MEDS: Levothyroxine 112 MCG Tablet PO SCH (05:06)
[2018-10-10 07:32] LABS: Mean Corpuscular HGB Conc 33.3 % (32.0-36.0); Mean Corpuscular Hemoglobin 31.9 pg (27.0-34.0); Mean Corpuscular Volume 95.8 fL (80.0-100.0); Mean Platelet Volume 12.4 fL (7.0-11.0); Platelet Count 172 th/mm3 (150-450); Red Blood Count 2.51 mil/mm3 (4.00-5.30); Red Cell Distribution Width 16.7 % (11.6-17.2); White Blood Count 18.7 th/mm3 (4.0-11.0)
[2018-10-10 08:15] LABS: Lymphocytes 24 % (9-44); Metamyelocytes 2 % (0-1); Monocytes 3 % (0-8)
[2018-10-10 08:18] LABS: Calcium 9.2 mg/dL (8.5-10.1); Carbon Dioxide 27.5 meq/L (21.0-32.0)
[2018-10-10 08:21] LABS: Target Cells 1+
[2018-10-10 08:22] LABS: Howell-Jolly Bodies Present
[2018-10-10 08:24] LABS: Toxic Vacuolation Present
[2018-10-10 08:27] LABS: Potassium 5.5 meq/L (3.5-5.1)
[2018-10-10] MEDS ORDERED: Sodium Polystyrene Sulfonate/Sorbitol Liq 15 GM/60 ML UDC PO ONE (09:54)
[2018-10-10 10:32] LABS: Albumin 1.9 g/dL (3.4-5.0); Total Protein 8.1 g/dL (6.4-8.2)
[2018-10-10 11:06] LABS: ABG Base Excess 0.9 mmol/L (-2-2); ABG PCO2 61 mmHg (38-42); ABG PO2 114 mmHg (61-120)
[2018-10-10] MEDS: Pregabalin 75 MG Capsule PO SCH (11:20)
[2018-10-10] MEDS: Senna/Docusate Sodium 8.6/50 MG Tablet PO SCH ×2 (11:21→22:00)
[2018-10-10] MEDS: Sodium Chloride 0.9% 2 ML Flush BID IV.FLUSH SCH ×2 (11:21→22:01)
[2018-10-10] MEDS: Pantoprazole Sodium 20 MG DR Tablet PO SCH ×2 (11:21→22:00)
[2018-10-10] MEDS: amLODIPine 10 MG Tablet PO SCH (11:21)
[2018-10-10] MEDS: Calcitriol 0.25 MCG Capsule PO SCH (11:22)
[2018-10-10] MEDS: Atenolol 50 MG Tablet PO SCH (11:22)
[2018-10-10] MEDS: Sod Chloride 0.9% Inj 1,000 ML IV.CONT SCH ×2 (11:23→22:01)
--- NOTE | 2018-10-10 11:34 | P.PNIM ---
Subjective Interval history: Follow-up visit possible lumbar spine osteomyelitis, leukocytosis, chronic anemia, HTN. Patient seen and examined today. Reported by RN that patient is now on 5 L nasal cannula, O2 sat dropped down in the 88s. Patient is drowsy. Cannot complete her sentence and goes back to sleep. Denies chest pain, palpitations, headaches. Denies n/v/d. Denies dysuria. Physical Exam Vital signs: Vital Signs 10/09/18 12:00 10/09/18 15:34 10/09/18 15:49 Temperature 98.4 F 98.7 F 98.7 F Pulse Rate 107 H 107 H 104 H Respiratory Rate 17 18 Blood Pressure 140/67 124/60 Pulse Oximetry 98 93 L 10/09/18 16:00 10/09/18 17:59 10/09/18 22:44 Temperature 99 F Pulse Rate 104 H 104 H Respiratory Rate 18 Blood Pressure 124/60 Pulse Oximetry 93 L 93 L 10/10/18 04:00 10/10/18 08:00 10/10/18 10:05 Temperature 99.6 F 98.7 F Pulse Rate 99 H 88 Respiratory Rate 17 19 Blood Pressure 124/60 95/48 L Pulse Oximetry 93 L 93 L 93 L Intake & Output 10/09/18 10/10/18 10/10/18 18:59 06:59 18:59 Intake Total 500 / 500 100 / 100 Balance 500 / 500 100 / 100 Weight 124.7 kg Intake: IV 100 / 100 100 / 100 Maxipime Inj 2,000 MG In NS Inj 100 / 100 100 / 100 100 ML @ 200 mls/hr IV.SIG Q12H [facility] Rx#:[id number] Intake (Blood Product) Amt 400 / 400 Rbc As-3 Leukoreduced Unit 400 / 400 [id number] Other: # Voids 3 2 # Incontinent Voids 1 Date of Last Bowel Movement 10/07/17 10/10/18 # Bowel Movements 1 Narrative: GENERAL: This is a well-nourished, well-developed patient, mildly distress. SKIN: Warm and dry. HEENT: Normocephalic. Pupils equal round and reactive. Nose without bleeding. Airway patent. NECK: Trachea midline. CARDIOVASCULAR: Regular rate and rhythm without murmurs, gallops, or rubs. RESPIRATORY: Diminished bases. No wheezes, rales, or rhonchi. GASTROINTESTINAL: Abdomen soft, non-tender. Bowel Sounds normoactive x4. MUSCULOSKELETAL: Extremities without clubbing, cyanosis, or edema. NEUROLOGICAL: Drowsy. Moves all extremities, weak BLE . Slow speech. Appears confused. Results - Labs CBC & Chem 7: 10/10/18 06:21 10/10/18 06:21 Laboratory Results - last 24 hr 10/07/18 10/07/18 10/09/18 09:50 09:50 13:20 WBC RBC Hgb Hct MCV MCH MCHC RDW Plt Count MPV Prelim Diff (Auto) WBC Differential Seg Neuts % (Manual) Band Neuts % (Manual) Lymphocytes % (Manual) Monocytes % (Manual) Metamyelocytes % (Man) Abs Neuts (Manual) Differential Comment Toxic Vacuolation Platelet Estimate Platelet Morphology Target Cells [place] Bodies Puncture Site Patient Temperature O2 Saturation ABG pH ABG pCO2 ABG pO2 ABG HCO3 ABG O2 Content ABG Base Excess ABG Methemoglobin [place] Test Hemoglobin Carboxyhemoglobin O2 Delivery Device Liter Flow Critical Value Sodium Potassium Chloride Carbon Dioxide Anion Gap BUN Creatinine Estimated GFR Random Glucose Calcium Total Bilirubin Direct Bilirubin Indirect Bilirubin AST ALT Alkaline Phosphatase Total Protein Albumin Alpha Fetoprotein Cancelled Tumor Marker AFP 2.7 HCG, Quant Cancelled Urine Color Urine Clarity Urine pH Ur Specific [place] Urine Protein Urine Glucose (UA) Urine Ketones Urine Occult Blood Urine Nitrate Urine Bilirubin Urine Urobilinogen Ur Leukocyte Esterase Urine RBC Urine WBC Ur Squamous Epith Cells Amorphous Sediment Urine Bacteria Urine Mucus Micro UA Comment Ur Microscopic Review Urine Culture Comments Gestational Age Cancelled AFP MoM Cancelled AFP Interpretation Cancelled HCG MoM Cancelled Unconj (Free) Estriol Cancelled Unconj Estriol MoM Cancelled Down's Maternal Age Risk Cancelled Down Syndrome Risk Cancelled Trisomy 18 Risk Cancelled NTD Risk Assessment Cancelled Blood Type O Positive Antibody Screen Negative MTS Gel Crossmatch See Detail 10/09/18 10/09/18 10/10/18 15:45 20:35 06:21 WBC RBC Hgb 8.9 L Hct 26.6 L MCV MCH MCHC RDW Plt Count MPV Prelim Diff (Auto) WBC Differential Seg Neuts % (Manual) Band Neuts % (Manual) Lymphocytes % (Manual) Monocytes % (Manual) Metamyelocytes % (Man) Abs Neuts (Manual) Differential Comment Toxic Vacuolation Platelet Estimate Platelet Morphology Target Cells [place] Bodies Puncture Site Patient Temperature O2 Saturation ABG pH ABG pCO2 ABG pO2 ABG HCO3 ABG O2 Content ABG Base Excess ABG Methemoglobin [place] Test Hemoglobin Carboxyhemoglobin O2 Delivery Device Liter Flow Critical Value Sodium 136 Potassium 5.5 H D Chloride 103 Carbon Dioxide 27.5 Anion Gap 6 BUN 37 H Creatinine 2.99 H Estimated GFR 19 L Random Glucose 90 Calcium 9.2 Total Bilirubin Direct Bilirubin Indirect Bilirubin AST ALT Alkaline Phosphatase Total Protein Albumin Alpha Fetoprotein Tumor Marker AFP HCG, Quant Urine Color Yellow Urine Clarity Cloudy H Urine pH 5.0 Ur Specific [place] 1.015 Urine Protein Negative Urine Glucose (UA) Negative Urine Ketones Negative Urine Occult Blood Moderate H Urine Nitrate Negative Urine Bilirubin Negative Urine Urobilinogen Less than 2 Ur Leukocyte Esterase Trace H Urine RBC 1 Urine WBC 4 Ur Squamous Epith Cells 2 Amorphous Sediment Rare H Urine Bacteria Moderate H Urine Mucus Few H Micro UA Comment Culture indicated Ur Microscopic Review Not Reportable Urine Culture Comments Culture indicated Gestational Age AFP MoM AFP Interpretation HCG MoM Unconj (Free) Estriol Unconj Estriol MoM Down's Maternal Age Risk Down Syndrome Risk Trisomy 18 Risk NTD Risk Assessment Blood Type Antibody Screen MTS Gel Crossmatch 10/10/18 10/10/18 10/10/18 06:21 06:21 10:56 WBC 18.7 H RBC 2.51 L Hgb 8.0 L Hct 24.0 L MCV 95.8 MCH 31.9 MCHC 33.3 RDW 16.7 Plt Count 172 MPV 12.4 H Prelim Diff (Auto) Manual diff required WBC Differential Manual diff final Seg Neuts % (Manual) 59 Band Neuts % (Manual) 12 H Lymphocytes % (Manual) 24 Monocytes % (Manual) 3 Metamyelocytes % (Man) 2 H Abs Neuts (Manual) 13.7 H Differential Comment . Toxic Vacuolation Present H Platelet Estimate Low L Platelet Morphology Enlarged H Target Cells 1+ H [place] Bodies Present H Puncture Site Right radial Patient Temperature 98.6 O2 Saturation 95 ABG pH 7.27 L* ABG pCO2 61 H* ABG pO2 114 ABG HCO3 27 H ABG O2 Content 13.8 ABG Base Excess 0.9 ABG Methemoglobin 1.2 Rocky Test Present Hemoglobin 10.2 L Carboxyhemoglobin 2.1 O2 Delivery Device Nasal cannula Liter Flow 5.00 Critical Value Yes Sodium Potassium Chloride Carbon Dioxide Anion Gap BUN Creatinine Estimated GFR Random Glucose Calcium Total Bilirubin 0.7 Direct Bilirubin 0.1 Indirect Bilirubin 0.6 AST 33 ALT 13 Alkaline Phosphatase 79 Total Protein 8.1 Albumin 1.9 L Alpha Fetoprotein Tumor Marker AFP HCG, Quant Urine Color Urine Clarity Urine pH Ur Specific [place] Urine Protein Urine Glucose (UA) Urine Ketones Urine Occult Blood Urine Nitrate Urine Bilirubin Urine Urobilinogen Ur Leukocyte Esterase Urine RBC Urine WBC Ur Squamous Epith Cells Amorphous Sediment Urine Bacteria Urine Mucus Micro UA Comment Ur Microscopic Review Urine Culture Comments Gestational Age AFP MoM AFP Interpretation HCG MoM Unconj (Free) Estriol Unconj Estriol MoM Down's Maternal Age Risk Down Syndrome Risk Trisomy 18 Risk NTD Risk Assessment Blood Type Antibody Screen MTS Gel Crossmatch Microbiology 10/09/18 00:35 Blood - Other Aerobic Blood Culture - Preliminary No growth in 1 day 10/09/18 00:35 Blood - Other Anaerobic Blood Culture - Final QNS - See aerobic report. 10/09/18 00:40 Blood - Other Aerobic Blood Culture - Preliminary No growth in 1 day 10/09/18 00:40 Blood - Other Anaerobic Blood Culture - Final QNS - See aerobic report. - Imaging Impressions Chest X-Ray 10/09/18 00:00 CONCLUSION: Questionable subtle small infiltrate in the medial right upper lobe. Assessment and Plan - Plan Patient is a 62-year-old female with a past medical history significant for hypertension, CKD and hypothyroidism presents to the emergency department for the evaluation of lower back pain. Encephalopathy, acute possibly toxic metabolic secondary to drug ingestion HALICAT 10/09/18 - 0000 -CT of the head negative, no evidence of acute infarct hemorrhage or mass edema -Hold off narcotics, sedatives this is been discussed with RN. -Check ABG patient has history of hypercapnia, EILEEN -BIPAP if hypercapnia SIRS, sepsis rule out Leukocytosis -13.2 --> 11 -->15.7 --> 19.6 --> 18.7 -Chest x-ray questionable subtle small infiltrate in the medial right upper lobe -On ceftriaxone,prior. Possible aspiration. Start cefepime discontinue ceftriaxone as per ID -ID following, appreciate recommendations -Monitor respiratory status -IV fluids, monitor for fluid overload Hx of HF last EF 55-60% 04/2018 Anemia, acute on chronic -Hemoglobin 7.1/21.3, Hemoccult ordered -1 unit PRBC transfusion -Consult GI if warranted -Post Transfusion H/H 06/28 now 8.0. No evidence of acute bleeding, no complaints of abdominal pain -Patient was previously followed by hematology/oncology Dr. Thomson. 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 Diagnosed with Hodgkin's lymphoma at the age of 16 underwent radiation therapy but did not require any chemotherapy. Patient had a workup of flow cytometry negative, lymphocytosis negative Possible osteomyelitis of the lumbar spine Patient had outpatient MRI done which showed possible osteomyelitis of L3/L4 ( disc in patient's chart) Patient with leukocytosis, elevated ESR/CRP -Blood cultures show no growth times 2 days, follow until finalized -ID following, appreciate assistance. CT a/p neg for iliopsoas abscess. Tumor markers CA 199, CEA - WNL. AFP pending -CT guided bx with IR done Follow up on cx. No pathology sent -IV Vancomycin and Ceftriaxone after bx obtained. Vanco held - 10/08 -Neurosurgery consulted, appreciate assistance. No surgical intervention at this time. -Pain management Lyrica 75 twice daily, morphine IV for breakthrough pain, Percocet, continue with bowel regimen -given throughout the night with respiratory status depressed. Narcan given - 10/09/18 -10/09/18 Repeat lumbar MRI of the spine showed changes consistent with discitis at L3-L4 without abscess. Diffuse degenerative changes without central canal stenosis. Potential left L3 neural foraminal impingement -Pain management change to norco instead of percocet, hold lyrica for now, resume if patient is more awake Hypertension/hypothyroidism -Continue home medications atenolol 50 mg daily, with parameters, Synthroid -Monitor BP trend Chronic kidney disease Creatinine near baseline for the patient -Avoid nephrotoxic agents -Monitor renal function as indicated -Elevated BOILER CLEANER 2.15 -->2.66 Constipation, chronic -initiate bowel regimen -monitor BM pattern Hx of lymphoma s/p radiation therapy, in remission -Follow-up in the outpatient DVT prophylaxis bilateral SCD/TRINITY hose CODE STATUS Full code Discussed with patient, nursing, Dr. Louise, Discharge Planning: DC when cleared by infectious disease. Pending biopsy results
[2018-10-10] MEDS: Pantoprazole Inj 40 MG Vial IV.PUSH SCH ×2 (14:30→22:01)
[2018-10-11] MEDS: Sod Chloride 0.9% Inj 1,000 ML IV.CONT SCH ×2 (05:52→17:07)
[2018-10-11] MEDS: Levothyroxine 112 MCG Tablet PO SCH (05:53)
[2018-10-11] MEDS: Pantoprazole Sodium 20 MG DR Tablet PO SCH ×2 (09:00→21:00)
[2018-10-11] MEDS: Pantoprazole Inj 40 MG Vial IV.PUSH SCH (09:00)
[2018-10-11] MEDS: Atenolol 50 MG Tablet PO SCH (09:01)
[2018-10-11] MEDS: amLODIPine 10 MG Tablet PO SCH (09:01)
[2018-10-11] MEDS: Senna/Docusate Sodium 8.6/50 MG Tablet PO SCH ×2 (09:01→21:00)
[2018-10-11] MEDS: Calcitriol 0.25 MCG Capsule PO SCH (09:01)
[2018-10-11] MEDS: Sodium Chloride 0.9% 2 ML Flush BID IV.FLUSH SCH ×2 (10:34→21:00)
--- NOTE | 2018-10-11 11:02 | P.PNIM ---
Subjective Interval history: Follow-up for osteomyelitis No overnight events, no fever or chills, on 5 L of oxygen. No labs today yet. Not short of breath, still coughing, cannot describe secretions. Physical Exam Vital signs: Vital Signs 10/10/18 12:00 10/10/18 12:09 10/10/18 16:00 Temperature 97.6 F 96.8 F L Pulse Rate 85 94 H Respiratory Rate 20 18 Blood Pressure 97/46 L 135/59 L Pulse Oximetry 99 93 L 95 10/10/18 17:32 10/10/18 20:00 10/11/18 00:00 Temperature 99.2 F 99.0 F Pulse Rate 93 H 99 H Respiratory Rate 17 20 Blood Pressure 121/59 L 137/61 Pulse Oximetry 95 98 96 10/11/18 08:00 10/11/18 09:20 Temperature 99.7 F H Pulse Rate 104 H Respiratory Rate 16 Blood Pressure 121/95 H Pulse Oximetry 92 L 96 Intake & Output 10/10/18 10/11/18 10/11/18 18:59 06:59 18:59 Intake Total 410 / 410 1000 / 1000 1000 / 1000 Output Total 300 / 300 450 / 450 Balance 110 / 110 550 / 550 1000 / 1000 Weight 124.7 kg Intake: IV 350 / 350 1000 / 1000 1000 / 1000 NS Inj 1,000 ML @ 100 mls/hr IV 1000 / 1000 1000 / 1000 .CONT .Q10H [facility] Rx#:[id number] Maxipime Inj 2,000 MG In NS Inj 100 / 100 100 ML @ 200 mls/hr IV.SIG Q12H [facility] Rx#:[id number] NS Inj 250 ML @ 15 mls/hr IV. 250 / 250 SIG ONCE [facility] Rx#:[id number] Oral 60 / 60 Output: Urine 300 / 300 450 / 450 Other: # Voids 2 # Incontinent Voids 1 Date of Last Bowel Movement 10/10/18 10/10/18 # Bowel Movements 1 0 Narrative: GENERAL: Not in distress. CARDIOVASCULAR: Regular rate and rhythm without murmurs, gallops, or rubs. RESPIRATORY: Diminished bases. No wheezes, rales, or rhonchi. GASTROINTESTINAL: Abdomen soft, non-tender. Bowel Sounds normoactive x4. MUSCULOSKELETAL: Extremities without clubbing, cyanosis, or edema. NEUROLOGICAL: Awake, alert, oriented to place, person and time. Moves all extremities, bilateral lower extremities are weak. Does not appear confused at this time. Positive touch sensation bilateral lower extremities. Results - Labs CBC & Chem 7: 10/10/18 06:21 10/10/18 06:21 Laboratory Results - last 24 hr 10/10/18 10:56 Puncture Site Right radial Patient Temperature 98.6 O2 Saturation 95 ABG pH 7.27 L* ABG pCO2 61 H* ABG pO2 114 ABG HCO3 27 H ABG O2 Content 13.8 ABG Base Excess 0.9 ABG Methemoglobin 1.2 Rocky Test Present Hemoglobin 10.2 L Carboxyhemoglobin 2.1 O2 Delivery Device Nasal cannula Liter Flow 5.00 Critical Value Yes Microbiology 10/09/18 15:45 Clean Catch Urine Urine Culture - Preliminary No growth in 24 hours 10/09/18 00:35 Blood - Other Aerobic Blood Culture - Preliminary No growth in 1 day 10/09/18 00:35 Blood - Other Anaerobic Blood Culture - Final QNS - See aerobic report. 10/09/18 00:40 Blood - Other Aerobic Blood Culture - Preliminary No growth in 1 day 10/09/18 00:40 Blood - Other Anaerobic Blood Culture - Final QNS - See aerobic report. Assessment and Plan - Plan Patient is a 62-year-old female with a past medical history significant for hypertension, CKD and hypothyroidism presents to the emergency department for the evaluation of lower back pain. Encephalopathy, acute possibly toxic metabolic secondary to drug ingestion -Halicat called. CT of the head negative, no evidence of acute infarct hemorrhage or mass edema. -Hold off narcotics, sedatives this is been discussed with RN. Now back to baseline. SIRS, sepsis rule out - WBC still elevated, Chest x-ray questionable subtle small infiltrate in the medial right upper lobe. Ceftriaxone switched to cefepime. Dr. Goldsmith from infectious disease following. IV fluids, monitor for fluid overload Hx of HF last EF 55-60% 04/2018. Repeat CBC today. Anemia, acute on chronic -s/p 1 unit PRBC transfusion, hemoglobin stable. No evidence of acute bleeding, no complaints of abdominal pain -Patient was previously followed by hematology/oncology Dr. Thomson. 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 Diagnosed with Hodgkin's lymphoma at the age of 16 underwent radiation therapy but did not require any chemotherapy. Patient had a workup of flow cytometry negative, lymphocytosis negative Possible osteomyelitis of the lumbar spine Patient had outpatient MRI done which showed possible osteomyelitis of L3/L4 ( disc in patient's chart) Patient with leukocytosis, elevated ESR/CRP -Blood cultures show no growth, ID following, appreciate assistance. CT a/p neg for iliopsoas abscess. Tumor markers CA 199, CEA - WNL. CT guided bx with IR done Follow up on cx. No pathology sent. IV Vancomycin and Ceftriaxone after bx obtained. Currently on cefepime. -Pain management Lyrica 75 twice daily, morphine IV for breakthrough pain, Percocet -patient had respiratory depression, the request. Percocet changed to [place]. Caution with morphine. -10/09/18 Repeat lumbar MRI of the spine showed changes consistent with discitis at L3-L4 without abscess. Diffuse degenerative changes without central canal stenosis. Potential left L3 neural foraminal impingement. Neurosurgery consulted, appreciate assistance. No surgical intervention at this time. Hypertension -Continue home medications atenolol 50 mg daily, with parameters Chronic kidney disease -Avoid nephrotoxic agents -Monitor renal function as indicated -Elevated CRIMINAL RESEARCHER 2.15 -->2.66, recheck BMP today. IVF for now. Constipation, chronic -initiate bowel regimen -monitor BM pattern Hx of lymphoma s/p radiation therapy, in remission -Follow-up in the outpatient DVT prophylaxis bilateral SCD/TRINITY hose CODE STATUS Full code
[2018-10-11 11:52] LABS: Baso # (Auto) 0.4 th/mm3 (0.0-0.2); Eos # (Auto) 0.1 th/mm3 (0.0-0.4); Eos % (Auto) 0.7 % (0.0-4.0); Hematocrit 22.3 % (35.0-46.0); Hemoglobin 7.9 gm/dL (11.6-15.3); Lymph % (Auto) 35.2 % (9.0-44.0); Mean Corpuscular HGB Conc 35.4 % (32.0-36.0); Mean Corpuscular Hemoglobin 33.9 pg (27.0-34.0); Mean Corpuscular Volume 95.9 fL (80.0-100.0); Mean Platelet Volume 11.5 fL (7.0-11.0); Mono # (Auto) 0.8 th/mm3 (0.0-0.9); Mono % (Auto) 5.8 % (0.0-8.0); Neut # (Auto) 7.9 th/mm3 (1.8-7.7); Neut % (Auto) 55.3 % (16.0-70.0); Platelet Count 225 th/mm3 (150-450); Red Blood Count 2.32 mil/mm3 (4.00-5.30); Red Cell Distribution Width 16.3 % (11.6-17.2); White Blood Count 14.2 th/mm3 (4.0-11.0)
[2018-10-11 12:24] LABS: Eosinophils 1 % (0-4); Lymphocytes 6 % (9-44); Monocytes 4 % (0-8)
[2018-10-11 12:25] LABS: Howell-Jolly Bodies Present; Platelet Estimate Normal (Normal); Target Cells 1+; Toxic Vacuolation Present
--- NOTE | 2018-10-11 13:06 | P.PNID ---
Subjective Remarks: Ms. Ontiveros is a 62-year-old -[place] female with past medical history significant for lymphoma status post radiation therapy alone in 1973. Thereafter patient reports she has had a repeat PET scan a couple years back which is negative for any recurrence of lymphoma. Patient does follow-up with Dr. Thomson are hematology oncology physician for chronic anemia. Patient reports that she has received Neupogen in the past but more recently she has been unable to afford the co-pay and therefore stopped it. Patient also reports a history of chronic kidney disease stage III progressing to stage IV and she sees possibly Dr. Hai Salmon as outpatient. She reports she has not been on dialysis and does not have any AV fistula. Patient also reports that she has been diagnosed with possibly rheumatoid arthritis as well as osteoarthritis and has had chronic back pain for many years. Her medical records also reveal chronic obesity with its complications such as osteoarthritis needing bilateral total knee replacements. Upon review of medical records it appears that patient was admitted in April 2018 for E. coli UTI as well as transient E. coli bacteremia treated with oral cephalosporin. Thereafter patient reports she was doing fairly okay up until 3-4 weeks prior to admission. Approximately 3-4 weeks prior to admission patient started noticing lower back pain that radiated to the left side and down her left lower extremity. She denies any fever chills or night sweats. She denies any bowel bladder incontinence. She denies any paresthesias or saddle anesthesia. She reports that at baseline she uses a walker since the year 2001 even before her total knee replacements. She reports that at baseline she is able to ambulate with a walker but most of the chores at home as well as cooking are done by her . Patient was seen by her primary care physician who performed an MRI of the spine as outpatient. Due to concern for osteomyelitis of the spine patient was referred to outpatient infectious disease Dr. Boothe who then recommended the patient be admitted to the hospital based on a phone conversation with her primary care physician. After admission patient has been evaluated by neurosurgery. Upon my discussion with neurosurgery it appears that there is no epidural abscess or drainable focus at this time. Due to concern for osteomyelitis of the spine and leukocytosis CT-guided lumbar spine biopsy would be recommended. Infectious diseases consulted for evaluation and management of spinal discitis/ osteomyelitis. Notes reviewed Back pain better controlled. No fever No rash No diarrhea Antibiotics: Rocephin Lines: Lines ok Past Medical History: reviewed Allergies/Adverse Reactions: Allergies doxycycline Allergy (Severe, Verified 10/03/18 20:08) Anaphylaxis sulfamethoxazole Allergy (Severe, Verified 10/03/18 20:08) Anaphylaxis trimethoprim Allergy (Severe, Verified 10/03/18 20:08) Anaphylaxis Objective Vital Signs 10/10/18 16:00 10/10/18 17:32 10/10/18 20:00 Temperature 96.8 F L 99.2 F Pulse Rate 94 H 93 H Respiratory Rate 18 17 Blood Pressure 135/59 L 121/59 L Pulse Oximetry 95 95 98 10/11/18 00:00 10/11/18 08:00 10/11/18 09:20 Temperature 99.0 F 99.7 F H Pulse Rate 99 H 104 H Respiratory Rate 20 16 Blood Pressure 137/61 121/95 H Pulse Oximetry 96 92 L 96 10/11/18 12:00 Temperature 99.3 F Pulse Rate 93 H Respiratory Rate 17 Blood Pressure 116/53 L Pulse Oximetry 94 L Intake & Output 10/10/18 10/11/18 10/11/18 18:59 06:59 18:59 Intake Total 410 / 410 1000 / 1000 1100 / 1100 Output Total 300 / 300 450 / 450 Balance 110 / 110 550 / 550 1100 / 1100 Weight 124.7 kg Intake: IV 350 / 350 1000 / 1000 1100 / 1100 NS Inj 1,000 ML @ 100 mls/hr IV 1000 / 1000 1000 / 1000 .CONT .Q10H LINDA Rx#:[id number] Maxipime Inj 1,000 MG In NS Inj 100 / 100 100 ML @ 200 mls/hr IV.SIG Q24H LINDA Rx#:[id number] Maxipime Inj 2,000 MG In NS Inj 100 / 100 100 ML @ 200 mls/hr IV.SIG Q12H LINDA Rx#:[id number] NS Inj 250 ML @ 15 mls/hr IV. 250 / 250 SIG ONCE LINDA Rx#:[id number] Oral 60 / 60 Output: Urine 300 / 300 450 / 450 Other: # Voids 2 # Incontinent Voids 1 Date of Last Bowel Movement 10/10/18 10/10/18 # Bowel Movements 1 0 10/09/18 15:45 Clean Catch Urine Urine Culture - Final <10,000 cfu/mL mixed gram positive silvia - no further workup 10/09/18 00:35 Blood - Other Aerobic Blood Culture - Preliminary No growth in 2 days 10/09/18 00:35 Blood - Other Anaerobic Blood Culture - Final QNS - See aerobic report. 10/09/18 00:40 Blood - Other Aerobic Blood Culture - Preliminary No growth in 2 days 10/09/18 00:40 Blood - Other Anaerobic Blood Culture - Final QNS - See aerobic report. 10/05/18 14:48 Fluid - Other Fungal Smear - Final No fungal elements seen 10/05/18 14:48 Fluid - Other Fungal Culture - Pending 10/03/18 21:45 Blood - Peripheral Aerobic Blood Culture - Final No growth in 5 days 10/03/18 21:45 Blood - Peripheral Anaerobic Blood Culture - Final No growth in 5 days 10/03/18 20:00 Blood - Peripheral Aerobic Blood Culture - Final No growth in 5 days 10/03/18 20:00 Blood - Peripheral Anaerobic Blood Culture - Final No growth in 5 days 10/05/18 14:48 Fluid - Other Acid Fast Bacilli Smear - Final No acid fast bacilli seen 10/05/18 14:48 Fluid - Other Mycobacterial Culture - Pending 10/05/18 14:48 Fluid - Other Gram Stain - Final 10/05/18 14:48 Fluid - Other Wound Culture - Final No growth in 72 hours (aerobically and anaerobically ) Lab - Hematology Results 10/09/18 10/10/18 10/11/18 20:35 06:21 11:37 WBC 18.7 H 14.2 H RBC 2.51 L 2.32 L Hgb 8.9 L 8.0 L 7.9 L Hct 26.6 L 24.0 L 22.3 L MCV 95.8 95.9 MCH 31.9 33.9 MCHC 33.3 35.4 RDW 16.7 16.3 Plt Count 172 225 D MPV 12.4 H 11.5 H Prelim Diff (Auto) Manual diff required Slide review pending Neut % (Auto) 55.3 Lymph % (Auto) 35.2 [place] % (Auto) 5.8 Eos % (Auto) 0.7 Baso % (Auto) 3.0 H Neut # (Auto) 7.9 H Lymph # (Auto) 5.0 H [place] # (Auto) 0.8 Eos # (Auto) 0.1 Baso # (Auto) 0.4 H WBC Differential Manual diff final Manual diff final Seg Neuts % (Manual) 59 60 Band Neuts % (Manual) 12 H 26 H Lymphocytes % (Manual) 24 6 L Monocytes % (Manual) 3 4 Eosinophils % (Manual) 1 Basophils % (Manual) 3 H Metamyelocytes % (Man) 2 H Abs Neuts (Manual) 13.7 H 12.2 H Differential Comment . . Toxic Vacuolation Present H Present H Platelet Estimate Low L Normal Platelet Morphology Enlarged H Giant H Target Cells 1+ H 1+ H Red-[place] Bodies Present H Present H Lab - Chemistry Results 10/07/18 10/07/18 10/10/18 09:50 09:50 06:21 Sodium 136 Potassium 5.5 H D Chloride 103 Carbon Dioxide 27.5 Anion Gap 6 BUN 37 H Creatinine 2.99 H Estimated GFR 19 L Random Glucose 90 Calcium 9.2 Total Bilirubin Direct Bilirubin Indirect Bilirubin AST ALT Alkaline Phosphatase Total Protein Albumin Alpha Fetoprotein Cancelled Tumor Marker AFP 2.7 HCG, Quant Cancelled 10/10/18 06:21 Sodium Potassium Chloride Carbon Dioxide Anion Gap BUN Creatinine Estimated GFR Random Glucose Calcium Total Bilirubin 0.7 Direct Bilirubin 0.1 Indirect Bilirubin 0.6 AST 33 ALT 13 Alkaline Phosphatase 79 Total Protein 8.1 Albumin 1.9 L Alpha Fetoprotein Tumor Marker AFP HCG, Quant Imaging: ITS Impressions Needle Biopsy/Aspiration X-Ray 10/05/18 00:00 CONCLUSION: 1. Uncomplicated L3-L4 disc aspiration as above. Abdomen/Pelvis CT 10/05/18 10:07 CONCLUSION: 1. There are advanced degenerative changes throughout the lumbar spine. There is some cortical irregularity of the vertebral endplates across the L3/4 disc level. Presumably there is outside cross-sectional imaging through this area. There was concern for possible abscess in the iliopsoas muscle. There is some subtle decreased attenuation in the muscle on the left side just beneath the L3- 4 disc space but I do not see a definite defined drainable collection by noncontrast imaging. If possible, postcontrast imaging may be of benefit for more definitive assessment. 2. There are 2 low-attenuation lesions within the liver. These are too small to definitively characterize by noncontrast CT. 3. The patient is post splenectomy. Chest X-Ray 10/09/18 00:00 CONCLUSION: Questionable subtle small infiltrate in the medial right upper lobe. Head CT 10/09/18 00:00 CONCLUSION: 1. Negative CT Head non contrast. 2. No evidence of acute infarct, hemorrhage, mass or edema. . Lumbar Spine MRI 10/09/18 00:00 CONCLUSION: 1. Changes consistent with discitis at L3-L4 without abscess. 2. Diffuse degenerative changes without central canal stenosis. Potential left L3 neural foraminal impingement. Details given above. Physical Exam: GENERAL: Morbidly obese well-developed, not in acute distress SKIN: Cool and dry, no generalized rash HEAD: Atraumatic. Normocephalic. No temporal or scalp tenderness. EYES: Pupils equal round and reactive. Scleral icterus. No injection or drainage. No petechia ENT: Nothing abnormal detected NECK: Trachea midline. Supple, nontender, no meningeal signs. CARDIOVASCULAR: HS audible. RESPIRATORY: Clear to auscultation bilaterally. GASTROINTESTINAL: Abdomen soft nontender. MUSCULOSKELETAL: Extremities without clubbing, cyanosis. Total knee replacement site with no evidence of infection. NEUROLOGICAL: Alert oriented 3. Nonfocal. Psych cooperative IV line sites ok. Assessment and Plan - Plan Suspected L4-L5 discitis Prior history of lymphoma status post radiation therapy now in remission. Morbid obesity BMI 37.9 kg/m square Allergy to doxycycline and Bactrim reported as airway swelling. Chronic kidney disease age 2 Recs: Continue Cefepime IV for possible aspiration. Biopsy Cultures prob will be negative - she got 2 doses IV vanco 10/04 and 10/05 , and 4 doses of IV Zosyn last dose given 09/24 Monitor progress Discussed with patient parth Gonzalez once pneumonia better will deescalate antibiotics on Monday depending on follow up to provide further discharge recs.
[2018-10-11 15:21] LABS: Calcium 9.2 mg/dL (8.5-10.1); Carbon Dioxide 25.2 meq/L (21.0-32.0); Potassium 4.4 meq/L (3.5-5.1)
[2018-10-12] MEDS: Sod Chloride 0.9% Inj 1,000 ML IV.CONT SCH ×4 (02:00→22:30)
[2018-10-12] MEDS: Levothyroxine 112 MCG Tablet PO SCH (07:16)
[2018-10-12] MEDS: Pantoprazole Sodium 20 MG DR Tablet PO SCH ×2 (08:50→22:50)
[2018-10-12] MEDS: amLODIPine 10 MG Tablet PO SCH (08:50)
[2018-10-12] MEDS: Calcitriol 0.25 MCG Capsule PO SCH (08:50)
[2018-10-12] MEDS: Atenolol 50 MG Tablet PO SCH (08:50)
[2018-10-12] MEDS: Senna/Docusate Sodium 8.6/50 MG Tablet PO SCH ×2 (09:44→22:50)
[2018-10-12] MEDS: Sodium Chloride 0.9% 2 ML Flush BID IV.FLUSH SCH ×2 (09:44→22:50)
--- NOTE | 2018-10-12 10:08 | P.PNIM ---
Subjective Interval history: Follow-up for osteomyelitis No overnight events, no fever or chills. Sometimes has loose stools, mildly nauseated but no vomiting. Afebrile. Physical Exam Vital signs: Vital Signs 10/11/18 12:00 10/11/18 16:00 10/11/18 20:00 Temperature 99.3 F 98.8 F 99.4 F Pulse Rate 93 H 90 92 H Respiratory Rate 17 17 20 Blood Pressure 116/53 L 141/64 H 122/68 Pulse Oximetry 94 L 92 L 94 L 10/12/18 00:00 10/12/18 04:00 10/12/18 08:00 Temperature 98.6 F 98.1 F 98.5 F Pulse Rate 95 H 90 98 H Respiratory Rate 22 18 20 Blood Pressure 134/63 153/70 H 140/62 Pulse Oximetry 98 96 92 L Intake & Output 10/11/18 10/12/18 10/12/18 18:59 06:59 18:59 Intake Total 1580 / 1580 480 / 480 1000 / 1000 Output Total 1000 / 1000 Balance 1580 / 1580 -520 / -520 1000 / 1000 Weight 119 kg Intake: IV 1100 / 1100 1000 / 1000 NS Inj 1,000 ML @ 100 mls/hr IV 1000 / 1000 1000 / 1000 .CONT .Q10H LINDA Rx#:[id number] Maxipime Inj 1,000 MG In NS Inj 100 / 100 100 ML @ 200 mls/hr IV.SIG Q24H LINDA Rx#:[id number] Oral 480 / 480 480 / 480 Output: Urine 1000 / 1000 Other: # Voids 1 Date of Last Bowel Movement 10/11/18 10/12/18 # Bowel Movements 2 Narrative: GENERAL: Not in distress. CARDIOVASCULAR: Regular rate and rhythm without murmurs, gallops, or rubs. RESPIRATORY: Diminished bases. No wheezes, rales, or rhonchi. GASTROINTESTINAL: Abdomen soft, non-tender. Bowel Sounds normoactive x4. MUSCULOSKELETAL: Extremities without clubbing, cyanosis, trace edema. NEUROLOGICAL: Awake, alert, oriented to place, person and time. Moves all extremities, bilateral lower extremities are weak, right more than left. Does not appear confused at this time but forgetful. Positive touch sensation bilateral lower extremities. Results - Labs CBC & Chem 7: 10/11/18 11:37 10/12/18 06:04 Laboratory Results - last 24 hr 10/11/18 10/11/18 10/12/18 11:37 14:14 06:04 WBC 14.2 H RBC 2.32 L Hgb 7.9 L Hct 22.3 L MCV 95.9 MCH 33.9 MCHC 35.4 RDW 16.3 Plt Count 225 D MPV 11.5 H Prelim Diff (Auto) Slide review pending Neut % (Auto) 55.3 Lymph % (Auto) 35.2 [place] % (Auto) 5.8 Eos % (Auto) 0.7 Baso % (Auto) 3.0 H Neut # (Auto) 7.9 H Lymph # (Auto) 5.0 H [place] # (Auto) 0.8 Eos # (Auto) 0.1 Baso # (Auto) 0.4 H WBC Differential Manual diff final Seg Neuts % (Manual) 60 Band Neuts % (Manual) 26 H Lymphocytes % (Manual) 6 L Monocytes % (Manual) 4 Eosinophils % (Manual) 1 Basophils % (Manual) 3 H Abs Neuts (Manual) 12.2 H Differential Comment . Toxic Vacuolation Present H Platelet Estimate Normal Platelet Morphology Giant H Target Cells 1+ H Red-Dent Bodies Present H Sodium 140 Potassium 4.4 D Chloride 106 Carbon Dioxide 25.2 Anion Gap 9 BUN 42 H Creatinine 2.62 H 2.29 H Estimated GFR 22 L 26 L Random Glucose 80 Calcium 9.2 Microbiology 10/09/18 15:45 Clean Catch Urine Urine Culture - Final <10,000 cfu/mL mixed gram positive silvia - no further workup 10/09/18 00:35 Blood - Other Aerobic Blood Culture - Preliminary No growth in 2 days 10/09/18 00:35 Blood - Other Anaerobic Blood Culture - Final QNS - See aerobic report. 10/09/18 00:40 Blood - Other Aerobic Blood Culture - Preliminary No growth in 2 days 10/09/18 00:40 Blood - Other Anaerobic Blood Culture - Final QNS - See aerobic report. Assessment and Plan - Plan Patient is a 62-year-old female with a past medical history significant for hypertension, CKD and hypothyroidism presents to the emergency department for the evaluation of lower back pain. Encephalopathy, acute possibly toxic metabolic secondary to drug ingestion -Halicat called for altered mental status. CT of the head negative, no evidence of acute infarct hemorrhage or mass edema. Hold off narcotics and sedatives. Now back to baseline. Sepsis secondary to pneumonia -Leukocytosis improving, chest x-ray questionable subtle small infiltrate in the medial right upper lobe. Ceftriaxone switched to cefepime for now, infectious disease following, discussed with Dr. Green, possible de-escalation of antibiotics on Monday. IV fluids, monitor for fluid overload Hx of HF last EF 55-60% 04/2018. Presently on 2 L of oxygen. Anemia, acute on chronic -s/p 1 unit PRBC transfusion, hemoglobin stable. No evidence of acute bleeding, no complaints of abdominal pain -Patient was previously followed by hematology/oncology Dr. Thomson. 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 Diagnosed with Hodgkin's lymphoma at the age of 16 underwent radiation therapy but did not require any chemotherapy. Patient had a workup of flow cytometry negative, lymphocytosis negative Possible osteomyelitis/discitis of L4-L5 Patient had outpatient MRI done which showed possible osteomyelitis of L3/L4 ( disc in patient's chart) -10/09/18 Repeat lumbar MRI of the spine showed changes consistent with discitis at L3-L4 without abscess. Diffuse degenerative changes without central canal stenosis. Potential left L3 neural foraminal impingement. Neurosurgery consulted, appreciate assistance. No surgical intervention at this time. Blood cultures show no growth, ID following, appreciate assistance. CT a/p neg for iliopsoas abscess. Tumor markers CA 199, CEA - WNL. CT guided bx with IR done Follow up on cx and pathology. Previously received doses of vancomycin 4 doses of Zosyn, currently on cefepime. - Percocet changed to [place]. Lyrica stopped because of altered mental status. Still on Flexeril. Caution with morphine. Hypertension-Continue home medications atenolol 50 mg daily, Norvasc 10 mg daily , with parameters Chronic kidney disease-Avoid nephrotoxic agents, baseline creatinine around 1.9- 2.0. Improving, continue IVF. Recheck BMP in a few days. Constipation, chronic - bowel regimen Hx of lymphoma s/p radiation therapy, in remission, Follow-up in the outpatient DVT prophylaxis bilateral SCD/TRINITY hose CODE STATUS Full code
--- NOTE | 2018-10-12 14:41 | P.PNID ---
Subjective Remarks: Ms. Ontiveros is a 62-year-old -[place] female with past medical history significant for lymphoma status post radiation therapy alone in 1973. Thereafter patient reports she has had a repeat PET scan a couple years back which is negative for any recurrence of lymphoma. Patient does follow-up with Dr. Thomson are hematology oncology physician for chronic anemia. Patient reports that she has received Neupogen in the past but more recently she has been unable to afford the co-pay and therefore stopped it. Patient also reports a history of chronic kidney disease stage III progressing to stage IV and she sees possibly Dr. Hai Salmon as outpatient. She reports she has not been on dialysis and does not have any AV fistula. Patient also reports that she has been diagnosed with possibly rheumatoid arthritis as well as osteoarthritis and has had chronic back pain for many years. Her medical records also reveal chronic obesity with its complications such as osteoarthritis needing bilateral total knee replacements. Upon review of medical records it appears that patient was admitted in April 2018 for E. coli UTI as well as transient E. coli bacteremia treated with oral cephalosporin. Thereafter patient reports she was doing fairly okay up until 3-4 weeks prior to admission. Approximately 3-4 weeks prior to admission patient started noticing lower back pain that radiated to the left side and down her left lower extremity. She denies any fever chills or night sweats. She denies any bowel bladder incontinence. She denies any paresthesias or saddle anesthesia. She reports that at baseline she uses a walker since the year 2001 even before her total knee replacements. She reports that at baseline she is able to ambulate with a walker but most of the chores at home as well as cooking are done by her . Patient was seen by her primary care physician who performed an MRI of the spine as outpatient. Due to concern for osteomyelitis of the spine patient was referred to outpatient infectious disease Dr. Boothe who then recommended the patient be admitted to the hospital based on a phone conversation with her primary care physician. After admission patient has been evaluated by neurosurgery. Upon my discussion with neurosurgery it appears that there is no epidural abscess or drainable focus at this time. Due to concern for osteomyelitis of the spine and leukocytosis CT-guided lumbar spine biopsy would be recommended. Infectious diseases consulted for evaluation and management of spinal discitis/ osteomyelitis. Notes reviewed Back pain better controlled. No fever No rash No diarrhea Antibiotics: Rocephin Vanco IV Lines: Lines ok Past Medical History: reviewed Allergies/Adverse Reactions: Allergies doxycycline Allergy (Severe, Verified 10/03/18 20:08) Anaphylaxis sulfamethoxazole Allergy (Severe, Verified 10/03/18 20:08) Anaphylaxis trimethoprim Allergy (Severe, Verified 10/03/18 20:08) Anaphylaxis Objective Vital Signs 10/11/18 16:00 10/11/18 20:00 10/12/18 00:00 Temperature 98.8 F 99.4 F 98.6 F Pulse Rate 90 92 H 95 H Respiratory Rate 17 20 22 Blood Pressure 141/64 H 122/68 134/63 Pulse Oximetry 92 L 94 L 98 10/12/18 04:00 10/12/18 08:00 10/12/18 14:00 Temperature 98.1 F 98.5 F 98.5 F Pulse Rate 90 98 H 93 H Respiratory Rate 18 20 20 Blood Pressure 153/70 H 140/62 128/64 Pulse Oximetry 96 92 L 93 L Intake & Output 10/11/18 10/12/18 10/12/18 18:59 06:59 18:59 Intake Total 1580 / 1580 480 / 480 1100 / 1100 Output Total 1000 / 1000 Balance 1580 / 1580 -520 / -520 1100 / 1100 Weight 119 kg Intake: IV 1100 / 1100 1100 / 1100 NS Inj 1,000 ML @ 100 mls/hr IV 1000 / 1000 1000 / 1000 .CONT .Q10H [facility] Rx#:[id number] Maxipime Inj 1,000 MG In NS Inj 100 / 100 100 / 100 100 ML @ 200 mls/hr IV.SIG Q24H [facility] Rx#:[id number] Oral 480 / 480 480 / 480 Output: Urine 1000 / 1000 Other: # Voids 1 Date of Last Bowel Movement 10/11/18 10/12/18 10/12/18 # Bowel Movements 2 10/05/18 14:48 Fluid - Other Fungal Smear - Final No fungal elements seen 10/05/18 14:48 Fluid - Other Fungal Culture - Preliminary No growth in 1 week 10/05/18 14:48 Fluid - Other Acid Fast Bacilli Smear - Final No acid fast bacilli seen 10/05/18 14:48 Fluid - Other Mycobacterial Culture - Preliminary No growth in 1 week 10/09/18 00:35 Blood - Other Aerobic Blood Culture - Preliminary No growth in 3 days 10/09/18 00:35 Blood - Other Anaerobic Blood Culture - Final QNS - See aerobic report. 10/09/18 00:40 Blood - Other Aerobic Blood Culture - Preliminary No growth in 3 days 10/09/18 00:40 Blood - Other Anaerobic Blood Culture - Final QNS - See aerobic report. 10/09/18 15:45 Clean Catch Urine Urine Culture - Final <10,000 cfu/mL mixed gram positive silvia - no further workup Lab - Hematology Results 10/11/18 11:37 WBC 14.2 H RBC 2.32 L Hgb 7.9 L Hct 22.3 L MCV 95.9 MCH 33.9 MCHC 35.4 RDW 16.3 Plt Count 225 D MPV 11.5 H Prelim Diff (Auto) Slide review pending Neut % (Auto) 55.3 Lymph % (Auto) 35.2 [place]ink % (Auto) 5.8 Eos % (Auto) 0.7 Baso % (Auto) 3.0 H Neut # (Auto) 7.9 H Lymph # (Auto) 5.0 H Spink # (Auto) 0.8 Eos # (Auto) 0.1 Baso # (Auto) 0.4 H WBC Differential Manual diff final Seg Neuts % (Manual) 60 Band Neuts % (Manual) 26 H Lymphocytes % (Manual) 6 L Monocytes % (Manual) 4 Eosinophils % (Manual) 1 Basophils % (Manual) 3 H Abs Neuts (Manual) 12.2 H Differential Comment . Toxic Vacuolation Present H Platelet Estimate Normal Platelet Morphology Giant H Target Cells 1+ H Red-[place] Bodies Present H Lab - Chemistry Results 10/11/18 10/12/18 14:14 06:04 Sodium 140 Potassium 4.4 D Chloride 106 Carbon Dioxide 25.2 Anion Gap 9 BUN 42 H Creatinine 2.62 H 2.29 H Estimated GFR 22 L 26 L Random Glucose 80 Calcium 9.2 Imaging: ITS Impressions Needle Biopsy/Aspiration X-Ray 10/05/18 00:00 CONCLUSION: 1. Uncomplicated L3-L4 disc aspiration as above. Abdomen/Pelvis CT 10/05/18 10:07 CONCLUSION: 1. There are advanced degenerative changes throughout the lumbar spine. There is some cortical irregularity of the vertebral endplates across the L3/4 disc level. Presumably there is outside cross-sectional imaging through this area. There was concern for possible abscess in the iliopsoas muscle. There is some subtle decreased attenuation in the muscle on the left side just beneath the L3- 4 disc space but I do not see a definite defined drainable collection by noncontrast imaging. If possible, postcontrast imaging may be of benefit for more definitive assessment. 2. There are 2 low-attenuation lesions within the liver. These are too small to definitively characterize by noncontrast CT. 3. The patient is post splenectomy. Chest X-Ray 10/09/18 00:00 CONCLUSION: Questionable subtle small infiltrate in the medial right upper lobe. Head CT 10/09/18 00:00 CONCLUSION: 1. Negative CT Head non contrast. 2. No evidence of acute infarct, hemorrhage, mass or edema. . Lumbar Spine MRI 10/09/18 00:00 CONCLUSION: 1. Changes consistent with discitis at L3-L4 without abscess. 2. Diffuse degenerative changes without central canal stenosis. Potential left L3 neural foraminal impingement. Details given above. Physical Exam: GENERAL: Morbidly obese well-developed, not in acute distress SKIN: Cool and dry, no generalized rash HEAD: Atraumatic. Normocephalic. No temporal or scalp tenderness. EYES: Pupils equal round and reactive. Scleral icterus. No injection or drainage. No petechia ENT: Nothing abnormal detected NECK: Trachea midline. Supple, nontender, no meningeal signs. CARDIOVASCULAR: HS audible. RESPIRATORY: Clear to auscultation bilaterally. GASTROINTESTINAL: Abdomen soft nontender. MUSCULOSKELETAL: Extremities without clubbing, cyanosis. Total knee replacement site with no evidence of infection. NEUROLOGICAL: Alert oriented 3. Nonfocal. Psych cooperative IV line sites ok. Assessment and Plan - Plan Suspected L4-L5 discitis Prior history of lymphoma status post radiation therapy now in remission. Morbid obesity BMI 37.9 kg/m square Allergy to doxycycline and Bactrim reported as airway swelling. Chronic kidney disease age 2 Recs: Continue Cefepime IV for possible aspiration. Biopsy Cultures prob will be negative - she got 2 doses IV vanco 10/04 and 10/05 , and 4 doses of IV Zosyn last dose given 09/24 Monitor progress Discussed with patient parth Gonzalez once pneumonia better will deescalate antibiotics on Monday depending on follow up to provide further discharge recs. parth [facility] personnel Summer. covering for me this weekend.
[2018-10-13] MEDS: Levothyroxine 112 MCG Tablet PO SCH (06:01)
--- NOTE | 2018-10-13 07:38 | P.PN ---
Subjective Interval history: Follow up on patient with discitis/osteomyelitis. Patient seen and examined. Patient is upset with staff. She is currently in restraints. She is refusing to take her medications. She pulled out her gamboa last night which she says she did not do. She says she has been urinating. She has been hallucinating, seeing multiple men in her room when only her is there. She has a fever. She denies any chest pain or shortness of breath. She says she is not crazy even though we think she is. She denies any back pain or left leg pain today. Physical Exam Vital signs: Vital Signs 10/12/18 08:00 10/12/18 14:00 10/12/18 16:00 Temperature 98.5 F 98.5 F 98.6 F Pulse Rate 98 H 93 H 94 H Respiratory Rate 20 20 20 Blood Pressure 140/62 128/64 145/66 H Pulse Oximetry 92 L 93 L 93 L 10/12/18 20:00 10/12/18 22:38 10/13/18 00:00 Temperature 98 F 97.7 F Pulse Rate 88 98 H Respiratory Rate 18 18 Blood Pressure 151/69 H 152/68 H Pulse Oximetry 92 L 93 L 93 L 10/13/18 04:00 Temperature 98.1 F Pulse Rate 105 H Respiratory Rate 18 Blood Pressure 171/72 H Pulse Oximetry 96 Intake & Output 10/12/18 10/13/18 10/13/18 18:59 06:59 18:59 Intake Total 1100 / 1100 200 / 200 Output Total 500 / 500 Balance 600 / 600 200 / 200 Intake: IV 1100 / 1100 NS Inj 1,000 ML @ 100 mls/hr IV 1000 / 1000 .CONT .Q10H [facility] Rx#:[id number] Maxipime Inj 1,000 MG In NS Inj 100 / 100 100 ML @ 200 mls/hr IV.SIG Q24H [facility] Rx#:[id number] Oral 200 / 200 Output: Urine 500 / 500 Other: # Incontinent Voids 2 Date of Last Bowel Movement 10/12/18 10/13/18 # Bowel Movements 1 # Incontinent Bowel Movements 1 Narrative: GENERAL: WDWN obese AAF patient, INAD. Awake and alert. Oriented to self, place and time. In 2 point soft restraints. SKIN: Warm and dry. HEAD: Atraumatic. Normocephalic. EYES: Pupils equal and round. No scleral icterus. No injection or drainage. ENT: No nasal bleeding or discharge. Mucous membranes pink and moist. NECK: Trachea midline. CARDIOVASCULAR: Regular rate and rhythm. No obvious murmur auscultated. RESPIRATORY: No accessory muscle use. Clear to auscultation. Breath sounds equal bilaterally. GASTROINTESTINAL: Abdomen soft, non-tender, nondistended. +BS. MUSCULOSKELETAL: Extremities without clubbing, cyanosis, or edema. No obvious deformities. NEUROLOGICAL: Awake and alert. No obvious cranial nerve deficits. Motor grossly within normal limits. Able to move all extremities spontaneously. Normal speech. PSYCHIATRIC: Angry, irritable mood. Insight and judgment poor. - Urinary Catheter Management Indwelling Urethral Catheter Cath placed during this visit: yes Reason for continuing: Acute urinary retention Insertion date: 10/13/18 Insertion time: 11:00 Results - Labs CBC & Chem 7: 10/13/18 15:55 10/14/18 05:24 Laboratory Results - last 24 hr 10/12/18 19:18 Stl C.difficile DNA Amp Negative St C. diff Tox Epid 027 Negative Microbiology 10/05/18 14:48 Fluid - Other Fungal Smear - Final No fungal elements seen 10/05/18 14:48 Fluid - Other Fungal Culture - Preliminary No growth in 1 week 10/05/18 14:48 Fluid - Other Acid Fast Bacilli Smear - Final No acid fast bacilli seen 10/05/18 14:48 Fluid - Other Mycobacterial Culture - Preliminary No growth in 1 week 10/09/18 00:35 Blood - Other Aerobic Blood Culture - Preliminary No growth in 3 days 10/09/18 00:35 Blood - Other Anaerobic Blood Culture - Final QNS - See aerobic report. 10/09/18 00:40 Blood - Other Aerobic Blood Culture - Preliminary No growth in 3 days 10/09/18 00:40 Blood - Other Anaerobic Blood Culture - Final QNS - See aerobic report. Assessment and Plan - Plan 62-year-old female with a past medical history significant for hypertension, CKD and hypothyroidism presents to the emergency department for the evaluation of lower back pain. Altered mental status/acute encephalopathy, recurrent 10/09 AMS, Halicat called, CT of the head negative, no evidence of acute infarct hemorrhage or mass edema. [place] likely due to polypharmacy and hypoxia. Possibly toxic metabolic encephalopathy secondary to infection patient currently in restraints, refusing to take her medications Fever, tmax 100 axillary Cdiff neg 10/12 -obtain ABG -obtain CBC, CMP, lactic acid, blood cultures -UA with c&s -obtain CXR -obtain CT lumbar spine to r/o worsening fluid collection/abscess (patient too agitated to have MRI). -hold all sedating medications and narcotics -consult Psychiatry, appreciate assistance Suspected L4-L5 discitis Patient had outpatient MRI done which showed possible osteomyelitis of L3/L4 ( disc in patient's chart) Patient with leukocytosis, elevated ESR/CRP -ID following, appreciate assistance. CT a/p neg for iliopsoas abscess. s/p CT guided bx with IR, cx with no growth. Continue on IV Cefepime per ID. -10/09/18 Repeat lumbar MRI of the spine showed changes consistent with discitis at L3-L4 without abscess. Diffuse degenerative changes without central canal stenosis. Potential left L3 neural foraminal impingement. -Neurosurgery consulted, appreciate assistance. No surgical intervention at this time. Sepsis, secondary to PNA CXR showing questionable subtle small infiltrate in the medial right upper lobe. -IV Ceftriaxone switched to Cefepime -ID following as above Urinary retention patient pulled out gamboa last night Bladder scan reading 412, gamboa catheter placed and 1100cc urine drained -check UA -monitor I&Os Anemia, acute on chronic -s/p 1 unit PRBCs -no evidence of active bleeding, continue to monitor Hypertension/hypothyroidism -Continue home medications Atenolol and Norvasc -continue to monitor BP -obtain TSH level Chronic kidney disease Creatinine near baseline for the patient -Avoid nephrotoxic agents -Monitor renal function as indicated Constipation, chronic -continue bowel regimen - now with diarrhea, laxatives on hold, C diff neg, monitor -monitor BM pattern Hx of lymphoma s/p radiation therapy, in remission -monitor Morbidly obese BMI 37.6 -patient would benefit from weight loss therapy, regular exercise program DVT prophylaxis -bilateral SCD/TIRNITY hose Discussed Condition With: patient, nursing staff, Dr. Sawyer Discharge Planning: Not ready for discharge
[2018-10-13] MEDS: Pantoprazole Sodium 20 MG DR Tablet PO SCH ×3 (08:49→22:39)
[2018-10-13] MEDS: amLODIPine 10 MG Tablet PO SCH (08:49)
[2018-10-13] MEDS: Sodium Chloride 0.9% 2 ML Flush BID IV.FLUSH SCH ×3 (08:49→22:38)
[2018-10-13] MEDS: Senna/Docusate Sodium 8.6/50 MG Tablet PO SCH ×2 (08:49→22:39)
[2018-10-13] MEDS: Calcitriol 0.25 MCG Capsule PO SCH (08:49)
[2018-10-13] MEDS: Atenolol 50 MG Tablet PO SCH (08:49)
[2018-10-13] MEDS: Sod Chloride 0.9% Inj 1,000 ML IV.CONT SCH ×2 (12:28→22:40)
[2018-10-13] MEDS: Acetaminophen 325 MG Tablet PO PRN (13:11)
[2018-10-13] MEDS: Acetaminophen Inj 650 MG/65 ML VIAL IV.SIG PRN (13:52)
[2018-10-13 14:10] LABS: Alanine Aminotransferase 12 U/L (10-53); Anion Gap 9 meq/L (5-15); Aspartate Aminotransferase 34 U/L (15-37); Blood Urea Nitrogen 36 mg/dL (7-18); Calcium 9.5 mg/dL (8.5-10.1); Carbon Dioxide 23.5 meq/L (21.0-32.0); Chloride 110 meq/L (98-107); Glomerular Filtration Rate 33 mL/min (>89); Glucose,Random 78 mg/dL (74-106); Potassium 4.3 meq/L (3.5-5.1); Sodium 142 meq/L (136-145)
[2018-10-13 14:13] LABS: Alkaline Phosphatase 86 U/L (45-117); Total Protein 8.6 g/dL (6.4-8.2)
[2018-10-13 14:27] LABS: Bacteria,Urine Rare /hpf; Bilirubin,Urine Negative (Negative); Clarity,Urine Clear (Clear); Color,Urine Yellow (Yellw/Straw); Glucose,Urine (UA) Negative (Negative); Leukocyte Esterase,Urine Negative (Negative); Nitrite,Urine Negative (Negative); Specific Gravity,Urine 1.009 (1.002-1.035)
[2018-10-13 14:36] LABS: Thyroid Stimulating Hormone 19.3 uIU/mL (0.358-3.740)
[2018-10-13 14:57] LABS: ABG Base Excess 0.8 mmol/L (-2-2); ABG PCO2 39 mmHg (38-42); ABG PO2 53 mmHg (61-120)
--- NOTE | 2018-10-13 16:29 | XR ---
EXAM DATE: 10/13/2018 4:17 PM EST AGE/SEX: 62 years / Female INDICATIONS: Shortness of breath. CLINICAL DATA: This is the patient's subsequent encounter. Patient reports that signs and symptoms h ave been present for 1 week and indicates a pain score of 0/10. MEDICAL/SURGICAL HISTORY: Hypertension. Chronic renal insufficiency. Cholelithiasis. Cholecys tectomy. Splenectomy. Thyroidectomy. COMPARISON: [facility] – [place], CHEST 1V SINGLE AP, 10/09/2018. . FINDINGS: Diffuse interstitial prominence with mild patchy bilateral lower lobe airspace disease. The cardiomed iastinal contours are unremarkable. Osseous structures are intact. CONCLUSION: 1. Mild patchy bilateral lower lobe airspace disease which may reflect atelectasis. Electronically signed by: Barrett Blair MD 10/13/2018 4:28 PM EST
[2018-10-13 16:42] LABS: Baso # (Auto) 0.7 th/mm3 (0.0-0.2); Baso % (Auto) 5.4 % (0.0-2.0); Eos # (Auto) 1.9 th/mm3 (0.0-0.4); Eos % (Auto) 13.9 % (0.0-4.0); Hematocrit 25.8 % (35.0-46.0); Hemoglobin 8.8 gm/dL (11.6-15.3); Lymph # (Auto) 4.5 th/mm3 (1.0-4.8); Lymph % (Auto) 33.6 % (9.0-44.0); Mean Corpuscular HGB Conc 34.2 % (32.0-36.0); Mean Corpuscular Hemoglobin 33.4 pg (27.0-34.0); Mean Corpuscular Volume 97.5 fL (80.0-100.0); Mono # (Auto) 1.2 th/mm3 (0.0-0.9); Neut # (Auto) 5.1 th/mm3 (1.8-7.7); Neut % (Auto) 38.1 % (16.0-70.0); Platelet Count 219 th/mm3 (150-450); Red Blood Count 2.64 mil/mm3 (4.00-5.30); Red Cell Distribution Width 16.5 % (11.6-17.2); White Blood Count 13.5 th/mm3 (4.0-11.0)
[2018-10-13 17:14] LABS: Lymphocytes 15 % (9-44); Monocytes 4 % (0-8); Tallied Nucleated RBC 1 (0-0)
[2018-10-13 17:15] LABS: Platelet Estimate Normal (Normal); Toxic Vacuolation Present
[2018-10-13 17:16] LABS: Target Cells 2+
--- NOTE | 2018-10-13 17:36 | MB ---
cc: Ajit Peterson MD DATE: 10/13/2018 CLINICIAN REQUESTING CONSULTATION: NESSA Rodriguez REASON FOR CONSULTATION: Delirium, hallucinating, refusing care. Please assess capacity. HISTORY OF PRESENT ILLNESS: Ms. Ontiveros is a 62-year-old female with a history of hypertension, hypothyroidism, hyperlipidemia and CKD, who presented to the emergency department, apparently sent by her primary care physician, with back pain out of concern for possible osteomyelitis, for which the patient has been admitted to the medical floor. Hospital stay has been complicated by acute on chronic anemia as well as pneumonia with sepsis. I note neurosurgical and infectious disease consultations. Reviewing the electronic medical record, I see no previous psychiatric consultations or admissions within our system. The patient was seen and examined. Chart reviewed. Case discussed with nurse and midlevel provider from the primary team. The patient has reportedly been refusing aspects of care, and nursing notes indicate that the patient refused BiPAP and also pulled out her [place] catheter today. She also has reportedly been hallucinating. On my examination today, the patient presents as fairly confused, see full mental status testing below. She is fairly distractible and appears internally preoccupied, although she denies any audiovisual hallucinations. Her speech is quite rambling. She does not appreciate any subjective confusion. She denies any suicidal or homicidal ideation. She does admit to poor sleep overnight. The psychiatric interview is fairly limited because of the patient's acute confusional state, and I do question the validity of historical data provided by the patient below. She has no acute physical complaints. I did endeavor to discuss with the patient her refusal of medical care, but I am unable to enter into a discussion with the patient about her understanding of the risks of so doing as a consequence of her cognitive impairment. She also does not articulate a consistent choice to refuse or accept any treatment. PAST PSYCHIATRIC HISTORY: The patient denies a history of psychiatric diagnosis. She denies a history of inpatient or outpatient psychiatric treatment. She denies a history of suicide attempts. FAMILY HISTORY: The patient reports that her older sister had some sort of psychiatric disturbance following the of sister's . No other family psychiatric history reported. CHEMICAL DEPENDENCY HISTORY: The patient admits to trying cannabis in the past. She denies any other substance use recently. She denies any use of alcohol or benzodiazepines or other substances from what she might withdrawal. SOCIAL HISTORY: The patient is . She has 1 child. She has a grade 12 education. 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 No reported access to guns or firearms. PAST MEDICAL HISTORY: As noted above, the patient has a history of hypertension, hyperlipidemia, hypothyroidism and CKD. MEDICATIONS: The patient is presently taking Amlodipine 10 mg daily, atenolol 50 mg daily, Synthroid 137 mcg at 6 a.m., Protonix 20 mg twice a day. I note that the patient also has Ambien as needed ordered, although this is on hold. She also has opiates prescribed for pain as needed. ALLERGIES: DOXYCYCLINE AND BACTRIM. REVIEW OF SYSTEMS: Limited because of the patient's degree of cognitive impairment at present, but otherwise negative, except as detailed in HPI. PHYSICAL EXAMINATION: VITAL SIGNS: Temperature 100.1, pulse 92, respirations 20, blood pressure 151/66, pulse oximetry 96% on room air. Physical examination was completed by the primary team. On my examination today, the patient is in soft wrist restraints. No motor abnormalities noted. No signs of withdrawal noted. LABORATORY DATA: Reviewed: CBC reveals leukocytosis with a white blood cell count of 14.2. The patient also has a normocytic anemia with a hemoglobin of 7.9. CMP reveals a decreased GFR at 33. LFTs within normal limits. B12 level within normal limits. TSH elevated at 19.3. Urinalysis reveals large occult blood and 19 red blood cells. C. difficile negative. Head CT read as no acute process. EKG from June of this year was read as sinus rhythm with a QTc of 412 milliseconds, not prolonged. MENTAL STATUS EXAMINATION: The patient is in hospital attire. She is fairly disheveled and ill-appearing. She is awake and alert and oriented to person and [place]. She believes the date is 11/09/2028. Her registration is 3/3, but her recall is 0/3 at 3 minutes. She spells the word "world" forward as " [id number]" and backwards as "[id number]." She is able to name 1/2 items. She is able to name the current President correctly and gives the last presidents as Obama and Agudelo. Speech is somewhat rambling, but otherwise within normal limits for rate, tone, and volume. Language and fund of knowledge are presently difficult to assess given her cognitive impairments. Focus and concentration are impaired. Mood is fair. Affect is somewhat blunted. Thought Process: Tangential in the setting of confusional state. No loosening of associations. No delusional material elicited. The patient denies audiovisual hallucinations presently, but does appear somewhat internally preoccupied and was noted by staff to be actively hallucinating earlier. The patient denies any suicidal or homicidal ideation, intent or plan. Insight and judgment are presently poor. ASSESSMENT AND PLAN: 1. Delirium, R41.0. This is a 62-year-old female with psychiatric history as detailed above, who is presently admitted to the medical floor for management of possible osteomyelitis complicated by pneumonia with sepsis and acute on chronic anemia. Psychiatry is consulted for capacity assessment and also to assist with management of delirium. On my evaluation, the patient is indeed acutely delirious. She is unable to verbalize a consistent choice regarding her refusal of medication treatment and is likewise unable to understand the risks of so doing. I therefore conclude that the patient is presently incapacitated with regard to making medical decisions and a healthcare surrogate should be utilized until her mental status improves. The patient's delirium is likely multifactorial and driven by her acute medical issues. Although her current medical issues including febrile illness are likely satisfactory to explain the cause of her delirium, other causes that might be explored include hyperammonemia or other vitamin deficiencies. I might check an ammonia and also check a thiamine and folate level. RPR and HIV might be assessed for completeness. Regarding management of delirium, I might consider initiation of a low dose of a sedating antipsychotic such as Zyprexa 2.5 mg at bedtime. QTc was within normal limits when last checked. I would avoid use of opiates, except as needed for severe pain, benzodiazepines or benzodiazepine receptor agonists such as the Ambien, anticholinergics or antihistamines as all can worsen mental status. I would continue to encourage frequent reorientation and mobilization as able. I would limit the use of restraints and encourage use of sitter for behavioral redirection if needed. I would also recommend nonpharmacologic measures for management of delirium including aggressive management of any constipation or urinary retention, shades up during the day and minimal interruption at night to regularize sleep patterns, assistive devices such as eyeglasses and hearing aids if worn at the bedside. Case discussed with midlevel provider from the primary team. Thank you very much for this consultation. Please call or page [phone] during daylight hours with questions over the weekend. I will ask Dr. Hong to followup after the weekend. MD ISABEL Mehta/susanne , 03:35 PM , 03:51 PM CHRISTELLE
--- NOTE | 2018-10-13 19:07 | CT ---
EXAM DATE: 10/13/2018 6:59 PM EST AGE/SEX: 62 years / Female INDICATIONS: Febrile; follow up discitis. CLINICAL DATA: This is the patient's initial encounter. Patient reports that signs and symptoms have been present for 1 week and indicates a pain score of 6/10. MEDICAL/SURGICAL HISTORY: Hypertension. Renal insufficiency, chronic. Splenectomy. Cholecystectom y. RADIATION DOSE: 48.88 CTDI (mGy) COMPARISON: [facility] [place], MR LUMBAR SPINE W/O CONTRAST, 10/09/2018. . TECHNIQUE: Contiguous axial images were acquired with a multirow detector CT scanner without contras t. Multiplanar reconstructions in the sagittal and coronal plane were also performed. Using automate d exposure control and adjustment of the mA and/or kV according to patient size, radiation dose was k ept as low as reasonably achievable to obtain optimal diagnostic quality images. DICOM format image data is available electronically for review and comparison. FINDINGS: Mild disc space narrowing and adjacent vertebral body endplate irregularity seen at L3/L4. Relative t o the MRI and out there is been a significant change. No discernible drainable fluid collections. A b road base disc protrusion is present at this level and there is mild to moderate right foraminal sten osis also not significantly changed. Nothing to suggest discitis or significant changes at other levels. CONCLUSION: 1. Discitis changes at L3/L4 again noted. The disc space narrowing and vertebral body endplate irreg ularity is mostly towards the left. No significant change from the prior MRI. No perceptible drainabl e fluid collection. Electronically signed by: Sammy Sun MD 10/13/2018 7:05 PM EST
[2018-10-13] MEDS ORDERED: OLANZapine 2.5 MG Tablet PO SCH (21:00)
[2018-10-13] MEDS: Heparin - SQ 10,000 UNITS/ML Vial SQ SCH (22:38)
[2018-10-14] MEDS: Levothyroxine 112 MCG Tablet PO SCH (05:47)
--- NOTE | 2018-10-14 08:03 | P.PN ---
Subjective Interval history: Follow up on patient with discitis/osteomyelitis. Patient seen and examined. Patient remains confused. She is oriented to self. She is able to correctly [facility] me [facility] She does not know she is in a hospital but states she is at home. She cannot tell me the year. She does not know why she is in the hospital. She is complaining of spasms over right side of her low back. DW nursing staff, patient very combative overnight, yelling and screaming, required restraints. Physical Exam Vital signs: Vital Signs 10/13/18 12:00 10/13/18 17:37 10/13/18 19:03 Temperature 100.1 F H 98.3 F Pulse Rate 92 H 92 H Respiratory Rate 20 20 Blood Pressure 151/66 H 143/68 H Pulse Oximetry 96 97 96 10/13/18 20:00 10/14/18 00:00 10/14/18 04:00 Temperature 98.3 F 98.7 F Pulse Rate 94 H 100 H 92 H Respiratory Rate 20 20 Blood Pressure 135/75 155/67 H Pulse Oximetry 100 95 10/14/18 05:16 Temperature 98.4 F Pulse Rate 98 H Respiratory Rate 20 Blood Pressure 136/62 Pulse Oximetry 97 Intake & Output 10/13/18 10/14/18 10/14/18 18:59 06:59 18:59 Intake Total 165 / 165 Output Total 1500 / 1500 900 / 900 Balance -1335 / -1335 -900 / -900 Weight 119.6 kg Intake: IV 165 / 165 Ofirmev Inj 650 mg In 65 ml @ 65 / 65 400 mls/hr IV.SIG Q6H PRN Rx#: [id number] Maxipime Inj 1,000 MG In NS Inj 100 / 100 100 ML @ 200 mls/hr IV.SIG Q24H LINDA Rx#:[id number] Output: Urine 900 / 900 Urine Amount (Catheter) 1500 / 1500 Indwelling Urethral Catheter 1500 / 1500 Other: Date of Last Bowel Movement 10/13/18 Narrative: GENERAL: WDWN obese AAF patient, INAD. Awake and alert. Oriented to self, place and time. In soft restraints, bilateral wrist restraints on but not tied down. SKIN: Warm and dry. HEENT: Atraumatic. Normocephalic. Pupils equal and round. No scleral icterus. No injection or drainage. No nasal bleeding or discharge. Mucous membranes pink and moist. NECK: Trachea midline. CARDIOVASCULAR: Regular rate and rhythm. No obvious murmur auscultated. RESPIRATORY: No accessory muscle use. Clear to auscultation. Breath sounds equal bilaterally. GASTROINTESTINAL: Abdomen soft, non-tender, nondistended. +BS. MUSCULOSKELETAL: Extremities without clubbing, cyanosis, or edema. No obvious deformities. NEUROLOGICAL: Awake and alert. No obvious cranial nerve deficits. Motor grossly within normal limits. Able to move all extremities spontaneously. Normal speech. PSYCHIATRIC: Calm and cooperative. Insight and judgment poor. - Urinary Catheter Management Indwelling Urethral Catheter Cath placed during this visit: yes Reason for continuing: Acute urinary retention Insertion date: 10/13/18 Insertion time: 11:00 Results - Labs CBC & Chem 7: 10/13/18 15:55 10/14/18 05:24 Laboratory Results - last 24 hr 10/13/18 10/13/18 10/13/18 13:40 13:40 13:40 WBC RBC Hgb Hct MCV MCH MCHC RDW Plt Count MPV Prelim Diff (Auto) Neut % (Auto) Lymph % (Auto) Dare % (Auto) Eos % (Auto) Baso % (Auto) Neut # (Auto) Lymph # (Auto) Dare # (Auto) Eos # (Auto) Baso # (Auto) WBC Differential Seg Neuts % (Manual) Band Neuts % (Manual) Lymphocytes % (Manual) Monocytes % (Manual) Basophils % (Manual) Abs Neuts (Manual) Nucleated RBCs/100 WBC Differential Comment Toxic Vacuolation Platelet Estimate Platelet Morphology Target Cells Keratocytes Puncture Site Patient Temperature O2 Saturation ABG pH ABG pCO2 ABG pO2 ABG HCO3 ABG O2 Content ABG Base Excess ABG Methemoglobin Rocky Test Hemoglobin Carboxyhemoglobin Critical Value Sodium 142 Potassium 4.3 Chloride 110 H Carbon Dioxide 23.5 Anion Gap 9 BUN 36 H Creatinine 1.89 H Estimated GFR 33 L Random Glucose 78 Lactic Acid Calcium 9.5 Total Bilirubin 0.5 AST 34 ALT 12 Alkaline Phosphatase 86 Total Protein 8.6 H Albumin 2.0 L Vitamin B12 371 TSH 19.300 H Free T4 1.43 Urine Color Urine Clarity Urine pH Ur Specific [place] Urine Protein Urine Glucose (UA) Urine Ketones Urine Occult Blood Urine Nitrate Urine Bilirubin Urine Urobilinogen Ur Leukocyte Esterase Urine RBC Urine WBC Urine Bacteria Urine Yeast Micro UA Comment Ur Microscopic Review Urine Culture Comments 10/13/18 10/13/18 10/13/18 14:00 14:50 15:55 WBC 13.5 H RBC 2.64 L Hgb 8.8 L Hct 25.8 L MCV 97.5 MCH 33.4 MCHC 34.2 RDW 16.5 Plt Count 219 MPV 12.0 H Prelim Diff (Auto) Slide review pending Neut % (Auto) 38.1 Lymph % (Auto) 33.6 Dare % (Auto) 9.0 H Eos % (Auto) 13.9 H Baso % (Auto) 5.4 H Neut # (Auto) 5.1 Lymph # (Auto) 4.5 Dare # (Auto) 1.2 H Eos # (Auto) 1.9 H Baso # (Auto) 0.7 H WBC Differential Manual diff final Seg Neuts % (Manual) 73 H Band Neuts % (Manual) 7 H Lymphocytes % (Manual) 15 Monocytes % (Manual) 4 Basophils % (Manual) 1 Abs Neuts (Manual) 10.8 H Nucleated RBCs/100 WBC 1 H Differential Comment . Toxic Vacuolation Present H Platelet Estimate Normal Platelet Morphology Giant H Target Cells 2+ H Keratocytes Occ H Puncture Site Right radial Patient Temperature 98.6 O2 Saturation 83 L* ABG pH 7.43 H ABG pCO2 39 ABG pO2 53 L* ABG HCO3 25 ABG O2 Content 12.9 ABG Base Excess 0.8 ABG Methemoglobin 1.1 Rocky Test Present Hemoglobin 11.1 L Carboxyhemoglobin 1.5 Critical Value Yes Sodium Potassium Chloride Carbon Dioxide Anion Gap BUN Creatinine Estimated GFR Random Glucose Lactic Acid Calcium Total Bilirubin AST ALT Alkaline Phosphatase Total Protein Albumin Vitamin B12 TSH Free T4 Urine Color Yellow Urine Clarity Clear Urine pH 5.0 Ur Specific [place] 1.009 Urine Protein Negative Urine Glucose (UA) Negative Urine Ketones Negative Urine Occult Blood Large H Urine Nitrate Negative Urine Bilirubin Negative Urine Urobilinogen Less than 2 Ur Leukocyte Esterase Negative Urine RBC 19 H Urine WBC Less than 1 Urine Bacteria Rare H Urine Yeast Rare H Micro UA Comment Cath-culture ind Ur Microscopic Review Not Reportable Urine Culture Comments Cath-cult indicated 10/13/18 10/14/18 15:55 05:24 WBC RBC Hgb Hct MCV MCH MCHC RDW Plt Count MPV Prelim Diff (Auto) Neut % (Auto) Lymph % (Auto) Dare % (Auto) Eos % (Auto) Baso % (Auto) Neut # (Auto) Lymph # (Auto) Dare # (Auto) Eos # (Auto) Baso # (Auto) WBC Differential Seg Neuts % (Manual) Band Neuts % (Manual) Lymphocytes % (Manual) Monocytes % (Manual) Basophils % (Manual) Abs Neuts (Manual) Nucleated RBCs/100 WBC Differential Comment Toxic Vacuolation Platelet Estimate Platelet Morphology Target Cells Keratocytes Puncture Site Patient Temperature O2 Saturation ABG pH ABG pCO2 ABG pO2 ABG HCO3 ABG O2 Content ABG Base Excess ABG Methemoglobin Rocky Test Hemoglobin Carboxyhemoglobin Critical Value Sodium Potassium Chloride Carbon Dioxide Anion Gap BUN Creatinine 1.74 H Estimated GFR 36 L Random Glucose Lactic Acid 1.3 Calcium Total Bilirubin AST ALT Alkaline Phosphatase Total Protein Albumin Vitamin B12 TSH Free T4 Urine Color Urine Clarity Urine pH Ur Specific [place] Urine Protein Urine Glucose (UA) Urine Ketones Urine Occult Blood Urine Nitrate Urine Bilirubin Urine Urobilinogen Ur Leukocyte Esterase Urine RBC Urine WBC Urine Bacteria Urine Yeast Micro UA Comment Ur Microscopic Review Urine Culture Comments Microbiology 10/09/18 00:35 Blood - Other Aerobic Blood Culture - Preliminary No growth in 4 days 10/09/18 00:35 Blood - Other Anaerobic Blood Culture - Final QNS - See aerobic report. 10/09/18 00:40 Blood - Other Aerobic Blood Culture - Preliminary No growth in 4 days 10/09/18 00:40 Blood - Other Anaerobic Blood Culture - Final QNS - See aerobic report. - Imaging Impressions Chest X-Ray 10/13/18 00:00 CONCLUSION: 1. Mild patchy bilateral lower lobe airspace disease which may reflect atelectasis. Lumbar Spine CT 10/13/18 00:00 CONCLUSION: 1. Discitis changes at L3/L4 again noted. The disc space narrowing and vertebral body endplate irregularity is mostly towards the left. No significant change from the prior MRI. No perceptible drainable fluid collection. Assessment and Plan - Plan 62-year-old female with a past medical history significant for hypertension, CKD and hypothyroidism presents to the emergency department for the evaluation of lower back pain. Altered mental status/acute encephalopathy, recurrent 10/09 AMS, Halicat called, CT of the head negative, no evidence of acute infarct hemorrhage or mass edema. [place] likely due to polypharmacy and hypoxia. Possibly toxic metabolic encephalopathy/delirium secondary to infection Fever, resolved, patient is afebrile Cdiff neg 10/12 UA neg for infection ABG +hypoxia with O2 sat 83% on RA, now satting 99% on 2L BCX show no growth x 1 day Lab reviewed, unremarkable except for leukocytosis which is trending down. CXR shows mild patchy bilateral lower lobe airspace dz likely atelectasis CT lumbar spine shows no significant change from prior study, no drainable fluid collection low normal B12, started on supplementation -continue to hold all sedating medications and narcotics -Psychiatry following, appreciate assistance. Patient does not have capacity at this time. Started on low dose Zyprexa. Patient still very combative/ agitated overnight, requiring restraints. Will increase Zyprexa dose to 5mg. Will order additional testing as recommended by psych team - thiamine/folate/ RPR and ammonia level -Consult Neurology, appreciate assistance Suspected L4-L5 discitis Patient had outpatient MRI done which showed possible osteomyelitis of L3/L4 ( disc in patient's chart) Patient with leukocytosis, elevated ESR/CRP -ID following, appreciate assistance. CT a/p neg for iliopsoas abscess. s/p CT guided bx with IR, cx with no growth. Continue on IV Cefepime per ID. -10/09/18 Repeat lumbar MRI of the spine showed changes consistent with discitis at L3-L4 without abscess. Diffuse degenerative changes without central canal stenosis. Potential left L3 neural foraminal impingement. 10/[address] ordered due to acute encephalopathy, no evidence of worsening fluid collection/abscess -Neurosurgery consulted, appreciate assistance. No surgical intervention at this time. Sepsis, secondary to PNA CXR showing questionable subtle small infiltrate in the medial right upper lobe. -IV Ceftriaxone switched to Cefepime -ID following as above Urinary retention patient pulled out gamboa last night Bladder scan reading 412, gamboa catheter placed and 1100cc urine drained -UA not suggestive of UTI -monitor I&Os Anemia, acute on chronic -s/p 1 unit PRBCs -no evidence of active bleeding, continue to monitor -repeat CBC shows stable H/H Hypertension/hypothyroidism -Continue home medications Atenolol and Norvasc -continue to monitor BP Hypothyroidism TSH level elevated but free T4 normal -patient has been refusing Synthroid intermittently -continue present dose of Synthroid -patient will need to have TSH rechecked as outpatient in 4-6 weeks Chronic kidney disease Creatinine near baseline for the patient -Avoid nephrotoxic agents -Monitor renal function as indicated Constipation, chronic -continue bowel regimen -monitor BM pattern Hx of lymphoma s/p radiation therapy, in remission -monitor Morbidly obese BMI 37.6 -patient would benefit from weight loss therapy, regular exercise program DVT prophylaxis -bilateral SCD/TRINITY hose Discussed Condition With: patient, nursing staff, Dr. Sawyer Discharge Planning: Not ready for discharge
[2018-10-14] MEDS: Heparin - SQ 10,000 UNITS/ML Vial SQ SCH ×2 (08:53→21:49)
[2018-10-14] MEDS: Senna/Docusate Sodium 8.6/50 MG Tablet PO SCH ×2 (08:54→21:50)
[2018-10-14] MEDS: Atenolol 50 MG Tablet PO SCH (08:54)
[2018-10-14] MEDS: Pantoprazole Sodium 20 MG DR Tablet PO SCH ×2 (08:54→21:49)
[2018-10-14] MEDS: Calcitriol 0.25 MCG Capsule PO SCH (08:54)
[2018-10-14] MEDS: Sodium Chloride 0.9% 2 ML Flush BID IV.FLUSH SCH ×2 (08:54→21:50)
[2018-10-14] MEDS: amLODIPine 10 MG Tablet PO SCH (08:54)
[2018-10-14] MEDS: Lidocaine 5% Patch T-DERMAL SCH (16:09)
[2018-10-14] MEDS ORDERED: OLANZapine 2.5 MG Tablet PO SCH (17:11)
--- NOTE | 2018-10-14 20:41 | MB ---
cc: Ajit Chávez MD DATE: 10/14/2018 HISTORY OF PRESENT ILLNESS: A 62-year-old, right-handed woman with hypertension, some renal insufficiency, Hodgkin disease when she was younger, who came in with low back pain on 10/03/2018. PAST MEDICAL HISTORY: She has had a history of a knee replacement, thyroidectomy, splenectomy, hypertension, hyperlipidemia, chronic kidney disease. I am asked to see her for mental status change. MEDICATIONS AT HOME: 1. Calcitriol. 2. Atenolol. 3. Amlodipine. 4. Allopurinol. 5. Ambien 10 at night. 6. Lyrica 75 b.i.d. 7. Omeprazole. 8. Thyroid medicine. 9. Hydrocodone. 10. Lasix. 11. Cyclobenzaprine 10 b.i.d. CURRENT MEDICATIONS: She is on: 1. Tylenol. 2. Hydrocodone. 3. Norvasc. 4. B12 orally. 5. Cefepime. 6. Flexeril. 7. Synthroid. 8. Morphine. 9. Zyprexa 5 at bedtime. REVIEW OF SYSTEMS: She denies any diabetes, hypercholesterolemia, [place], CABG, cardiac arrhythmia, stent, angioplasty, atrial fibrillation, Coumadin, hepatic, pulmonary disease, thyroid disease, lupus, ulcer, seizure or stroke. SOCIAL HISTORY: Not a smoker or drinker. She lives with her . FAMILY HISTORY: Negative for cancer, seizure or stroke. PHYSICAL EXAMINATION: VITAL SIGNS: Afebrile, 161/73, 20, 88. NECK: There are no carotid bruits. HEART: Regular rate and rhythm. I do not detect a murmur. GENERAL: She is awake and alert. She knows the year. She was 1 off on the month, but came around to it when I gave her a hint. She knows what street she lives on and that she is in [facility]. She could not come up with [facility]. Speech is fluent. She is not aphasic. Her manner is good. Her mood is okay. She remembered 2/3 words at 2 minutes. Simple calculations are intact. Visual de leon are full. Extraocular movements intact without nystagmus. Pupils are equal. Face is symmetric with normal sensation. Tongue is midline. Normal strength in the upper and lower extremities bilaterally. Toes downgoing bilaterally. DTRs are trace throughout. Old right knee surgery. Pinprick is intact throughout face, arms and legs bilaterally. LABORATORY AND DIAGNOSTIC DATA: White count 13,000, hematocrit 25, platelet count 219. Sedimentation rate was greater than 140 when she came in. UA was negative. Basic metabolic profile, creatinine 1.89, BUN 36, otherwise normal. LFTs are normal. TSH high at 19. T4 normal. B12 normal. ABG initially 7.28, 62, 69, last one 7.43, 39, 53 with an O2 saturation of 83% and that was yesterday. She had a CAT scan of her lumbar spine done yesterday, diskitis at L3-L4, no change from prior MRI. She was noted to have a fever to 102 here. She had increased lethargy. This was on 10/09/2018. Some low O2 saturations. Cultures appear to be all negative, including a wound culture. IMPRESSION: I think overall she looks fairly well neurologically. She has probably not been sleeping well at night. I will put her back her on her Ambien 10 at night and do a sleep chart on her. I thought overall neurologically she looked well. We can check an MRI of her brain. I did not think she is too far off, probably her baseline. MD ERVIN Humphrey/alexis , 07:40 PM , 07:48 PM
[2018-10-14] MEDS: Sod Chloride 0.9% Inj 1,000 ML IV.CONT SCH (21:58)
[2018-10-15] MEDS: Levothyroxine 112 MCG Tablet PO SCH (06:04)
--- NOTE | 2018-10-15 07:27 | P.PN ---
Subjective Interval history: Follow up patient with discitis/osteomyelitis. Patient seen and examined. Patient remains confused. She is partially oriented. She is in restraints. She does not indicate to me that she has any pain. Discussed with nursing staff , patient did not sleep well overnight. Physical Exam Vital signs: Vital Signs 10/14/18 08:00 10/14/18 08:13 10/14/18 12:26 Temperature 98.2 F Pulse Rate 99 H 101 H 72 Respiratory Rate 20 18 18 Blood Pressure 162/84 H Pulse Oximetry 96 99 10/14/18 13:34 10/14/18 17:00 10/14/18 18:59 Temperature 98.2 F 98.5 F Pulse Rate 88 88 90 Respiratory Rate 20 20 20 Blood Pressure 148/65 H 161/73 H Pulse Oximetry 93 L 96 10/14/18 19:00 10/14/18 20:00 10/14/18 22:05 Temperature 98.8 F Pulse Rate 86 91 H Respiratory Rate 20 Blood Pressure 176/78 H Pulse Oximetry 98 94 L 10/15/18 00:00 10/15/18 04:00 10/15/18 05:31 Temperature 97.8 F 97.9 F Pulse Rate 94 H 99 H Respiratory Rate 20 20 16 Blood Pressure 155/67 H 151/87 H Pulse Oximetry 96 96 Intake & Output 10/14/18 10/15/18 10/15/18 18:59 06:59 18:59 Intake Total 220 / 220 1000 / 1000 Output Total 500 / 500 900 / 900 Balance -280 / -280 100 / 100 Weight 117.6 kg Intake: IV 100 / 100 1000 / 1000 NS Inj 1,000 ML @ 42 mls/hr IV. 1000 / 1000 CONT .[id number] LINDA Rx#:[id number] Maxipime Inj 1,000 MG In NS Inj 100 / 100 100 ML @ 200 mls/hr IV.SIG Q24H LINDA Rx#:[id number] Oral 120 / 120 Output: Urine 500 / 500 900 / 900 Other: Date of Last Bowel Movement 10/13/18 10/14/18 Narrative: GENERAL: WDWN obese AAF patient, INAD. Awake and alert. Oriented to self and place. In soft restraints. SKIN: Warm and dry. HEENT: Atraumatic. Normocephalic. Pupils equal and round. No scleral icterus. No injection or drainage. No nasal bleeding or discharge. Mucous membranes pink and moist. NECK: Trachea midline. CARDIOVASCULAR: Regular rate and rhythm. No obvious murmur auscultated. RESPIRATORY: No accessory muscle use. Clear to auscultation. Breath sounds equal bilaterally. GASTROINTESTINAL: Abdomen soft, non-tender, nondistended. +BS. MUSCULOSKELETAL: Extremities without clubbing, cyanosis, or edema. No obvious deformities. NEUROLOGICAL: Awake and alert. No obvious cranial nerve deficits. Motor grossly within normal limits. Able to move all extremities spontaneously. Normal speech. PSYCHIATRIC: Calm and cooperative. Insight and judgment poor. - Urinary Catheter Management Indwelling Urethral Catheter Cath placed during this visit: yes Reason for continuing: Acute urinary retention Insertion date: 10/13/18 Insertion time: 11:00 Results - Labs CBC & Chem 7: 10/13/18 15:55 10/14/18 05:24 Laboratory Results - last 24 hr 10/14/18 10/15/18 05:24 06:13 Creatinine 1.74 H Estimated GFR 36 L Ammonia 11 Microbiology 10/13/18 14:00 Catheterized Urine Urine Culture - Preliminary No growth in 24 hours 10/13/18 15:55 Blood - Peripheral Aerobic Blood Culture - Preliminary No growth in 1 day 10/13/18 15:55 Blood - Peripheral Anaerobic Blood Culture - Preliminary No growth in 1 day 10/13/18 15:50 Blood - Peripheral Aerobic Blood Culture - Preliminary No growth in 1 day 10/13/18 15:50 Blood - Peripheral Anaerobic Blood Culture - Preliminary No growth in 1 day 10/09/18 00:35 Blood - Other Aerobic Blood Culture - Final No growth in 5 days 10/09/18 00:35 Blood - Other Anaerobic Blood Culture - Final QNS - See aerobic report. 10/09/18 00:40 Blood - Other Aerobic Blood Culture - Final No growth in 5 days 10/09/18 00:40 Blood - Other Anaerobic Blood Culture - Final QNS - See aerobic report. Assessment and Plan - Plan 62-year-old female with a past medical history significant for hypertension, CKD and hypothyroidism presents to the emergency department for the evaluation of lower back pain. Altered mental status/acute encephalopathy, recurrent 10/09 AMS, Halicat called, CT of the head negative, no evidence of acute infarct hemorrhage or mass edema. [place] likely due to polypharmacy and hypoxia. Possibly toxic metabolic encephalopathy/delirium secondary to infection Fever, resolved, patient is afebrile Cdiff neg 10/12 UA neg for infection ABG +hypoxia with O2 sat 83% on RA, now satting 99% on 2L BCX show no growth x 1 day Lab reviewed, unremarkable except for leukocytosis which is trending down. CXR shows mild patchy bilateral lower lobe airspace dz likely atelectasis CT lumbar spine shows no significant change from prior study, no drainable fluid collection low normal B12, started on supplementation -continue to hold all sedating medications and narcotics -Psychiatry following, appreciate assistance. Patient does not have capacity at this time. Continue on Zyprexa at night. -Neurology following, appreciate assistance. MRI of the brain ordered, negative per report. Risperdal added to help with sleep. -Discussed with Dr. Green who is considering LP for evaluation of possible meningoencephalitis. Suspected L4-L5 discitis Patient had outpatient MRI done which showed possible osteomyelitis of L3/L4 ( disc in patient's chart) Patient with leukocytosis, elevated ESR/CRP -ID following, appreciate assistance. CT a/p neg for iliopsoas abscess. s/p CT guided bx with IR, cx with no growth. Continue on IV Cefepime per ID. -10/09/18 Repeat lumbar MRI of the spine showed changes consistent with discitis at L3-L4 without abscess. Diffuse degenerative changes without central canal stenosis. Potential left L3 neural foraminal impingement. 10/[address] ordered due to acute encephalopathy, no evidence of worsening fluid collection/abscess -Neurosurgery consulted, appreciate assistance. No surgical intervention at this time. Sepsis, secondary to PNA CXR showing questionable subtle small infiltrate in the medial right upper lobe. -IV Ceftriaxone switched to Cefepime -ID following as above Urinary retention patient pulled out gamboa last night Bladder scan reading 412, gamboa catheter placed and 1100cc urine drained -UA not suggestive of UTI -monitor I&Os Anemia, acute on chronic -s/p 1 unit PRBCs -no evidence of active bleeding, continue to monitor -repeat CBC shows stable H/H Hypertension/hypothyroidism -Continue home medications Atenolol and Norvasc -continue to monitor BP Hypothyroidism TSH level elevated but free T4 normal -patient has been refusing Synthroid intermittently -continue present dose of Synthroid -patient will need to have TSH rechecked as outpatient in 4-6 weeks Chronic kidney disease Creatinine near baseline for the patient -Avoid nephrotoxic agents -Monitor renal function as indicated Constipation, chronic -continue bowel regimen -monitor BM pattern Hx of lymphoma s/p radiation therapy, in remission -monitor Morbidly obese BMI 37.6 -patient would benefit from weight loss therapy, regular exercise program DVT prophylaxis -bilateral SCD/TRINITY hose Discussed Condition With: patient, nursing staff, Dr. Sawyer, Dr. Green Discharge Planning: Not ready for discharge
--- NOTE | 2018-10-15 08:09 | P.PNPSY ---
Sign out provided to Dr. Hong, who will assume psychiatric consultative role.
--- NOTE | 2018-10-15 08:35 | P.PNNEU ---
Subjective Active Medications: Active Medications Acetaminophen (Tylenol) 650 mg PO Q4H PRN PRN Reason: Temp > 100.4 Hydrocodone Bitart/Acetaminophen ([place] 5/325) 1 tab PO Q6H PRN PRN Reason: Pain 1-5 Last Admin: 10/11/18 10:41 Dose: 1 tab Hydrocodone Bitart/Acetaminophen ([place] 10/325) 1 tab PO Q6H PRN PRN Reason: Pain 6-10 Albuterol (Duoneb Neb ([facility])) 1 ampul NEB Q6HR WHILE AWAKE NEB [facility] Last Admin: 10/15/18 07:28 Dose: 1 ampul Amlodipine Besylate (Norvasc) 10 mg PO DAILY [facility] Last Admin: 10/14/18 08:54 Dose: 10 mg Atenolol (Tenormin) 50 mg PO DAILY [facility] Last Admin: 10/14/18 08:54 Dose: 50 mg Bisacodyl (Dulcolax Supp) 10 mg RECTAL DAILY PRN PRN Reason: SEVERE CONSITIPATION Calcitriol (Rocaltrol) 0.25 mcg PO DAILY [facility] Last Admin: 10/14/18 08:54 Dose: 0.25 mcg Cyanocobalamin (Vitamin B12) 1,000 mcg PO DAILY [facility] Last Admin: 10/14/18 08:57 Dose: 1,000 mcg Cyclobenzaprine HCl (Flexeril) 10 mg PO BID [facility] Last Admin: 10/13/18 10:02 Dose: Not Given Heparin Sodium (Porcine) (Heparin Inj) 5,000 units SQ Q12HR [facility] Last Admin: 10/14/18 21:49 Dose: 5,000 units Sodium Chloride (Ns Inj) 1,000 mls @ 42 mls/hr IV.CONT .[id number] [facility] Last Admin: 10/14/18 21:58 Dose: 42 mls/hr Cefepime HCl 1,000 mg/ Sodium (Chloride) 100 mls @ 200 mls/hr IV.SIG Q24H [facility] Last Infusion: 10/14/18 13:42 Dose: Infused Acetaminophen (Ofirmev Inj) 650 mg in 65 mls @ 400 mls/hr IV.SIG Q6H PRN PRN Reason: PAIN 1-10 OR TEMP > 100.4 F Last Infusion: 10/13/18 14:30 Dose: Infused Levothyroxine Sodium (Synthroid) 112 mcg PO DAILY@0600 [facility] Last Admin: 10/15/18 06:04 Dose: 112 mcg Levothyroxine Sodium (Synthroid) 25 mcg PO DAILY@0600 [facility] Last Admin: 10/15/18 06:04 Dose: 25 mcg Lidocaine HCl (Lidoderm 5% Patch.12 Hr) 1 patch T-DERMAL DAILY [facility] Last Admin: 10/14/18 16:09 Dose: 1 patch Morphine Sulfate (Morphine Inj) 2 mg IV.PUSH Q4H PRN PRN Reason: BREAKTHROUGH PAIN Last Admin: 10/06/18 15:15 Dose: 2 mg Olanzapine (Zyprexa) 5 mg PO HS [facility] Last Admin: 10/14/18 21:48 Dose: 5 mg Ondansetron HCl (Zofran Inj) 4 mg IV.PUSH Q6H PRN PRN Reason: NAUSEA OR VOMITING Pantoprazole Sodium (Protonix) 20 mg PO BID [facility] Last Admin: 10/14/18 21:49 Dose: 20 mg Patch Removal (Remove Old Patch) 1 each T-DERMAL HS [facility] Last Admin: 10/14/18 22:49 Dose: Not Given Senna/Docusate Sodium (Joyce-Colace) 1 tab PO BID [facility] Last Admin: 10/14/18 21:50 Dose: 1 tab Sennosides (Senokot) 17.2 mg PO Q12H PRN PRN Reason: Moderate Constipation Last Admin: 10/06/18 10:15 Dose: 17.2 mg Sodium Chloride (Ns Flush) 2 ml IV.FLUSH BID [facility] Last Admin: 10/14/18 21:50 Dose: Not Given Sodium Chloride (Ns Flush) 2 ml IV.FLUSH PRN PRN PRN Reason: FLUSH AFTER USING IV ACCESS Zolpidem Tartrate (Ambien) 10 mg PO HS PRN PRN Reason: INSOMNIA Last Admin: 10/14/18 21:48 Dose: 10 mg Allergies/Adverse Reactions: Allergies Allergy/AdvReac Type Severity Reaction Status Date / Time doxycycline Allergy Severe Anaphylaxis Verified 10/03/18 20:08 sulfamethoxazole Allergy Severe Anaphylaxis Verified 10/03/18 20:08 trimethoprim Allergy Severe Anaphylaxis Verified 10/03/18 20:08 Physical Exam Vital signs: Vital Signs 10/14/18 12:26 10/14/18 13:34 10/14/18 17:00 Temperature 98.2 F 98.5 F Pulse Rate 72 88 88 Respiratory Rate 18 20 20 Blood Pressure 148/65 H 161/73 H Pulse Oximetry 93 L 96 10/14/18 18:59 10/14/18 19:00 10/14/18 20:00 Temperature 98.8 F Pulse Rate 90 86 Respiratory Rate 20 20 Blood Pressure 176/78 H Pulse Oximetry 98 94 L 10/14/18 22:05 10/15/18 00:00 10/15/18 04:00 Temperature 97.8 F 97.9 F Pulse Rate 91 H 94 H 99 H Respiratory Rate 20 20 Blood Pressure 155/67 H 151/87 H Pulse Oximetry 96 96 10/15/18 05:31 10/15/18 07:31 Temperature Pulse Rate 70 Respiratory Rate 16 20 Blood Pressure Pulse Oximetry Intake & Output 10/14/18 10/15/18 10/15/18 18:59 06:59 18:59 Intake Total 220 / 220 1000 / 1000 Output Total 500 / 500 900 / 900 Balance -280 / -280 100 / 100 Weight 117.6 kg Intake: IV 100 / 100 1000 / 1000 NS Inj 1,000 ML @ 42 mls/hr IV. 1000 / 1000 CONT .[id number] [facility] Rx#:[id number] Maxipime Inj 1,000 MG In NS Inj 100 / 100 100 ML @ 200 mls/hr IV.SIG Q24H [facility] Rx#:[id number] Oral 120 / 120 Output: Urine 500 / 500 900 / 900 Other: Date of Last Bowel Movement 10/13/18 10/14/18 Narrative: knows month yr and place - Urinary Catheter Management Indwelling Urethral Catheter Cath placed during this visit: yes Reason for continuing: Acute urinary retention Insertion date: 10/13/18 Insertion time: 11:00 Objective Laboratory Results - last 24 hr 10/15/18 06:13 Ammonia 11 Microbiology 10/13/18 14:00 Urine Culture - Preliminary Catheterized Urine No growth in 24 hours 10/13/18 15:55 Aerobic Blood Culture - Preliminary Blood - Peripheral No growth in 1 day Anaerobic Blood Culture - Preliminary No growth in 1 day 10/13/18 15:50 Aerobic Blood Culture - Preliminary Blood - Peripheral No growth in 1 day Anaerobic Blood Culture - Preliminary No growth in 1 day 10/09/18 00:35 Aerobic Blood Culture - Final Blood - Other No growth in 5 days Anaerobic Blood Culture - Final QNS - See aerobic report. 10/09/18 00:40 Aerobic Blood Culture - Final Blood - Other No growth in 5 days Anaerobic Blood Culture - Final QNS - See aerobic report. Review/Management - Review/Management Plan: imp mri pend did not sleep at all last noc so change sleep regiment and monitor sleep
[2018-10-15] MEDS: Pantoprazole Sodium 20 MG DR Tablet PO SCH ×2 (08:49→21:02)
[2018-10-15] MEDS: Calcitriol 0.25 MCG Capsule PO SCH (08:49)
[2018-10-15] MEDS: Senna/Docusate Sodium 8.6/50 MG Tablet PO SCH ×2 (08:49→21:02)
[2018-10-15] MEDS: Atenolol 50 MG Tablet PO SCH (08:49)
[2018-10-15] MEDS: amLODIPine 10 MG Tablet PO SCH (08:49)
[2018-10-15] MEDS: Sodium Chloride 0.9% 2 ML Flush BID IV.FLUSH SCH ×2 (08:49→21:02)
[2018-10-15] MEDS: Heparin - SQ 10,000 UNITS/ML Vial SQ SCH ×2 (08:49→21:02)
[2018-10-15] MEDS: Lidocaine 5% Patch T-DERMAL SCH (08:50)
--- NOTE | 2018-10-15 12:54 | P.PNID ---
Subjective Remarks: Ms. Ontiveros is a 62-year-old -[place] female with past medical history significant for lymphoma status post radiation therapy alone in 1973. Thereafter patient reports she has had a repeat PET scan a couple years back which is negative for any recurrence of lymphoma. Patient does follow-up with Dr. Thomson are hematology oncology physician for chronic anemia. Patient reports that she has received Neupogen in the past but more recently she has been unable to afford the co-pay and therefore stopped it. Patient also reports a history of chronic kidney disease stage III progressing to stage IV and she sees possibly Dr. Hai Salmon as outpatient. She reports she has not been on dialysis and does not have any AV fistula. Patient also reports that she has been diagnosed with possibly rheumatoid arthritis as well as osteoarthritis and has had chronic back pain for many years. Her medical records also reveal chronic obesity with its complications such as osteoarthritis needing bilateral total knee replacements. Upon review of medical records it appears that patient was admitted in April 2018 for E. coli UTI as well as transient E. coli bacteremia treated with oral cephalosporin. Thereafter patient reports she was doing fairly okay up until 3-4 weeks prior to admission. Approximately 3-4 weeks prior to admission patient started noticing lower back pain that radiated to the left side and down her left lower extremity. She denies any fever chills or night sweats. She denies any bowel bladder incontinence. She denies any paresthesias or saddle anesthesia. She reports that at baseline she uses a walker since the year 2001 even before her total knee replacements. She reports that at baseline she is able to ambulate with a walker but most of the chores at home as well as cooking are done by her . Patient was seen by her primary care physician who performed an MRI of the spine as outpatient. Due to concern for osteomyelitis of the spine patient was referred to outpatient infectious disease Dr. Boothe who then recommended the patient be admitted to the hospital based on a phone conversation with her primary care physician. After admission patient has been evaluated by neurosurgery. Upon my discussion with neurosurgery it appears that there is no epidural abscess or drainable focus at this time. Due to concern for osteomyelitis of the spine and leukocytosis CT-guided lumbar spine biopsy would be recommended. Infectious diseases consulted for evaluation and management of spinal discitis/ osteomyelitis. Notes reviewed Back pain better controlled. No fever No rash No diarrhea Antibiotics: Cefepime IV Lines: Lines ok Past Medical History: reviewed Allergies/Adverse Reactions: Allergies doxycycline Allergy (Severe, Verified 10/03/18 20:08) Anaphylaxis sulfamethoxazole Allergy (Severe, Verified 10/03/18 20:08) Anaphylaxis trimethoprim Allergy (Severe, Verified 10/03/18 20:08) Anaphylaxis Objective Vital Signs 10/14/18 13:34 10/14/18 17:00 10/14/18 18:59 Temperature 98.2 F 98.5 F Pulse Rate 88 88 90 Respiratory Rate 20 20 20 Blood Pressure 148/65 H 161/73 H Pulse Oximetry 93 L 96 10/14/18 19:00 10/14/18 20:00 10/14/18 22:05 Temperature 98.8 F Pulse Rate 86 91 H Respiratory Rate 20 Blood Pressure 176/78 H Pulse Oximetry 98 94 L 10/15/18 00:00 10/15/18 04:00 10/15/18 05:31 Temperature 97.8 F 97.9 F Pulse Rate 94 H 99 H Respiratory Rate 20 20 16 Blood Pressure 155/67 H 151/87 H Pulse Oximetry 96 96 10/15/18 07:31 10/15/18 08:00 10/15/18 11:30 Temperature 98.8 F Pulse Rate 70 95 H 92 H Respiratory Rate 20 19 20 Blood Pressure 150/87 H Pulse Oximetry 95 Intake & Output 10/14/18 10/15/18 10/15/18 18:59 06:59 18:59 Intake Total 220 / 220 1000 / 1000 100 / 100 Output Total 500 / 500 900 / 900 Balance -280 / -280 100 / 100 100 / 100 Weight 117.6 kg Intake: IV 100 / 100 1000 / 1000 100 / 100 NS Inj 1,000 ML @ 42 mls/hr IV. 1000 / 1000 CONT .[id number] [facility] Rx#:[id number] Maxipime Inj 1,000 MG In NS Inj 100 / 100 100 / 100 100 ML @ 200 mls/hr IV.SIG Q24H [facility] Rx#:[id number] Oral 120 / 120 Output: Urine 500 / 500 900 / 900 Other: Date of Last Bowel Movement 10/13/18 10/14/18 10/13/18 15:55 Blood - Peripheral Aerobic Blood Culture - Preliminary No growth in 2 days 10/13/18 15:55 Blood - Peripheral Anaerobic Blood Culture - Preliminary No growth in 2 days 10/13/18 15:50 Blood - Peripheral Aerobic Blood Culture - Preliminary No growth in 2 days 10/13/18 15:50 Blood - Peripheral Anaerobic Blood Culture - Preliminary No growth in 2 days 10/13/18 14:00 Catheterized Urine Urine Culture - Final No growth in 48 hours 10/09/18 00:35 Blood - Other Aerobic Blood Culture - Final No growth in 5 days 10/09/18 00:35 Blood - Other Anaerobic Blood Culture - Final QNS - See aerobic report. 10/09/18 00:40 Blood - Other Aerobic Blood Culture - Final No growth in 5 days 10/09/18 00:40 Blood - Other Anaerobic Blood Culture - Final QNS - See aerobic report. 10/05/18 14:48 Fluid - Other Fungal Smear - Final No fungal elements seen 10/05/18 14:48 Fluid - Other Fungal Culture - Preliminary No growth in 1 week 10/05/18 14:48 Fluid - Other Acid Fast Bacilli Smear - Final No acid fast bacilli seen 10/05/18 14:48 Fluid - Other Mycobacterial Culture - Preliminary No growth in 1 week Lab - Hematology Results 10/13/18 15:55 WBC 13.5 H RBC 2.64 L Hgb 8.8 L Hct 25.8 L MCV 97.5 MCH 33.4 MCHC 34.2 RDW 16.5 Plt Count 219 MPV 12.0 H Prelim Diff (Auto) Slide review pending Neut % (Auto) 38.1 Lymph % (Auto) 33.6 [place] % (Auto) 9.0 H Eos % (Auto) 13.9 H Baso % (Auto) 5.4 H Neut # (Auto) 5.1 Lymph # (Auto) 4.5 [place] # (Auto) 1.2 H Eos # (Auto) 1.9 H Baso # (Auto) 0.7 H WBC Differential Manual diff final Seg Neuts % (Manual) 73 H Band Neuts % (Manual) 7 H Lymphocytes % (Manual) 15 Monocytes % (Manual) 4 Basophils % (Manual) 1 Abs Neuts (Manual) 10.8 H Nucleated RBCs/100 WBC 1 H Differential Comment . Toxic Vacuolation Present H Platelet Estimate Normal Platelet Morphology Giant H Target Cells 2+ H Keratocytes Occ H Lab - Chemistry Results 10/13/18 10/13/18 10/13/18 13:40 13:40 13:40 Sodium 142 Potassium 4.3 Chloride 110 H Carbon Dioxide 23.5 Anion Gap 9 BUN 36 H Creatinine 1.89 H Estimated GFR 33 L Random Glucose 78 Lactic Acid Calcium 9.5 Total Bilirubin 0.5 AST 34 ALT 12 Alkaline Phosphatase 86 Ammonia Total Protein 8.6 H Albumin 2.0 L Vitamin B12 371 TSH 19.300 H Free T4 1.43 10/13/18 10/14/18 10/15/18 15:55 05:24 06:13 Sodium Potassium Chloride Carbon Dioxide Anion Gap BUN Creatinine 1.74 H Estimated GFR 36 L Random Glucose Lactic Acid 1.3 Calcium Total Bilirubin AST ALT Alkaline Phosphatase Ammonia 11 Total Protein Albumin Vitamin B12 TSH Free T4 Imaging: ITS Impressions Needle Biopsy/Aspiration X-Ray 10/05/18 00:00 CONCLUSION: 1. Uncomplicated L3-L4 disc aspiration as above. Abdomen/Pelvis CT 10/05/18 10:07 CONCLUSION: 1. There are advanced degenerative changes throughout the lumbar spine. There is some cortical irregularity of the vertebral endplates across the L3/4 disc level. Presumably there is outside cross-sectional imaging through this area. There was concern for possible abscess in the iliopsoas muscle. There is some subtle decreased attenuation in the muscle on the left side just beneath the L3- 4 disc space but I do not see a definite defined drainable collection by noncontrast imaging. If possible, postcontrast imaging may be of benefit for more definitive assessment. 2. There are 2 low-attenuation lesions within the liver. These are too small to definitively characterize by noncontrast CT. 3. The patient is post splenectomy. Head CT 10/09/18 00:00 CONCLUSION: 1. Negative CT Head non contrast. 2. No evidence of acute infarct, hemorrhage, mass or edema. . Lumbar Spine MRI 10/09/18 00:00 CONCLUSION: 1. Changes consistent with discitis at L3-L4 without abscess. 2. Diffuse degenerative changes without central canal stenosis. Potential left L3 neural foraminal impingement. Details given above. Chest X-Ray 10/13/18 00:00 CONCLUSION: 1. Mild patchy bilateral lower lobe airspace disease which may reflect atelectasis. Lumbar Spine CT 10/13/18 00:00 CONCLUSION: 1. Discitis changes at L3/L4 again noted. The disc space narrowing and vertebral body endplate irregularity is mostly towards the left. No significant change from the prior MRI. No perceptible drainable fluid collection. Physical Exam: GENERAL: Morbidly obese well-developed, not in acute distress SKIN: Cool and dry, no generalized rash HEAD: Atraumatic. Normocephalic. No temporal or scalp tenderness. EYES: Pupils equal round and reactive. Scleral icterus. No injection or drainage. No petechia ENT: Nothing abnormal detected NECK: Trachea midline. Supple, nontender, no meningeal signs. CARDIOVASCULAR: HS audible. RESPIRATORY: Clear to auscultation bilaterally. GASTROINTESTINAL: Abdomen soft nontender. MUSCULOSKELETAL: Extremities without clubbing, cyanosis. Total knee replacement site with no evidence of infection. NEUROLOGICAL: Alert oriented 3. Nonfocal. Psych cooperative IV line sites ok. Assessment and Plan - Plan Suspected L4-L5 discitis Prior history of lymphoma status post radiation therapy now in remission. Morbid obesity BMI 37.9 kg/m square Allergy to doxycycline and Bactrim reported as airway swelling. Chronic kidney disease age 2 Recs: Continue Cefepime IV for possible aspiration. Biopsy Cultures prob will be negative - she got 2 doses IV vanco 10/04 and 10/05 , and 4 doses of IV Zosyn last dose given 09/24 Monitor progress Discussed with NESSA Rodriguez: depending on MRI brain findings will consider LP to rule out secondary meningoencephalitis.
--- NOTE | 2018-10-15 14:40 | MR ---
EXAM DATE: 10/15/2018 2:34 PM EST AGE/SEX: 62 years / Female INDICATIONS: Altered mental status. CLINICAL DATA: This is the patient's subsequent encounter. Patient reports that signs and symptoms h ave been present for 2 weeks and indicates a pain score of 3/10. MEDICAL/SURGICAL HISTORY: Hypertension. CKD Cholecystectomy. Splenectomy. Thyroidectomy. bi lateral knee replacement COMPARISON: [facility] [place], CT HEAD W/O CONTRAST, 10/09/2018. . TECHNIQUE: Multiplanar, multisequence examination of the brain was performed without contrast. FINDINGS: Cerebrum: The ventricles are normal for age. No evidence of midline shift, mass lesion, hemorrhage or acute infarction. No extraaxial fluid collections are seen. The pituitary gland and suprasellar cistern are normal in configuration. White Matter: No significant signal abnormalities are seen in the white matter. Posterior Fossa: The cerebellum and brainstem are intact. The 4th ventricle is midline. The cerebel lopontine angle is unremarkable. The cerebellar tonsils are normal in position. Diffusion Imaging: No focal areas of restricted diffusion are seen. No evidence of acute infarction . Extracranial: The visualized portions of the orbits and paranasal sinuses are unremarkable. CONCLUSION: 1. Negative MR Brain non contrast. Electronically signed by: Mauricio Gutierrez MD 10/15/2018 2:38 PM EST
[2018-10-15] MEDS: Sod Chloride 0.9% Inj 1,000 ML IV.CONT SCH (18:06)
[2018-10-15] MEDS ORDERED: Temazepam 15 MG Capsule PO PRN (21:00)
[2018-10-16] MEDS: Levothyroxine 112 MCG Tablet PO SCH (06:35)
[2018-10-16] MEDS ORDERED: Temazepam 15 MG Capsule PO PRN (07:26)
--- NOTE | 2018-10-16 07:30 | P.PNNEU ---
Subjective Active Medications: Active Medications Acetaminophen (Tylenol) 650 mg PO Q4H PRN PRN Reason: Temp > 100.4 Hydrocodone Bitart/Acetaminophen ([place] 5/325) 1 tab PO Q6H PRN PRN Reason: Pain 1-5 Last Admin: 10/11/18 10:41 Dose: 1 tab Hydrocodone Bitart/Acetaminophen ([place] 10/325) 1 tab PO Q6H PRN PRN Reason: Pain 6-10 Albuterol (Duoneb Neb ([facility])) 1 ampul NEB Q6HR WHILE AWAKE NEB [facility] Last Admin: 10/15/18 20:55 Dose: 1 ampul Amlodipine Besylate (Norvasc) 10 mg PO DAILY [facility] Last Admin: 10/15/18 08:49 Dose: 10 mg Atenolol (Tenormin) 50 mg PO DAILY [facility] Last Admin: 10/15/18 08:49 Dose: 50 mg Bisacodyl (Dulcolax Supp) 10 mg RECTAL DAILY PRN PRN Reason: SEVERE CONSITIPATION Calcitriol (Rocaltrol) 0.25 mcg PO DAILY [facility] Last Admin: 10/15/18 08:49 Dose: 0.25 mcg Clonidine HCl (Catapres) 0.1 mg PO Q6H PRN PRN Reason: SBP>180 OR DBP >95 Cyanocobalamin (Vitamin B12) 1,000 mcg PO DAILY [facility] Last Admin: 10/15/18 08:49 Dose: 1,000 mcg Cyclobenzaprine HCl (Flexeril) 10 mg PO BID [facility] Last Admin: 10/13/18 10:02 Dose: Not Given Heparin Sodium (Porcine) (Heparin Inj) 5,000 units SQ Q12HR [facility] Last Admin: 10/15/18 21:02 Dose: 5,000 units Sodium Chloride (Ns Inj) 1,000 mls @ 42 mls/hr IV.CONT .[id number] [facility] Last Infusion: 10/15/18 22:40 Dose: 0 mls/hr Cefepime HCl 1,000 mg/ Sodium (Chloride) 100 mls @ 200 mls/hr IV.SIG Q24H [facility] Last Infusion: 10/15/18 12:31 Dose: Infused Acetaminophen (Ofirmev Inj) 650 mg in 65 mls @ 400 mls/hr IV.SIG Q6H PRN PRN Reason: PAIN 1-10 OR TEMP > 100.4 F Last Infusion: 10/13/18 14:30 Dose: Infused Levothyroxine Sodium (Synthroid) 112 mcg PO DAILY@0600 [facility] Last Admin: 10/16/18 06:35 Dose: 112 mcg Levothyroxine Sodium (Synthroid) 25 mcg PO DAILY@0600 [facility] Last Admin: 10/16/18 06:35 Dose: 25 mcg Lidocaine HCl (Lidoderm 5% Patch.12 Hr) 1 patch T-DERMAL DAILY [facility] Last Admin: 10/15/18 08:50 Dose: 1 patch Morphine Sulfate (Morphine Inj) 2 mg IV.PUSH Q4H PRN PRN Reason: BREAKTHROUGH PAIN Last Admin: 10/06/18 15:15 Dose: 2 mg Ondansetron HCl (Zofran Inj) 4 mg IV.PUSH Q6H PRN PRN Reason: NAUSEA OR VOMITING Pantoprazole Sodium (Protonix) 20 mg PO BID [facility] Last Admin: 10/15/18 21:02 Dose: 20 mg Patch Removal (Remove Old Patch) 1 each T-DERMAL HS [facility] Last Admin: 10/15/18 21:03 Dose: Not Given Risperidone (Risperdal) 0.5 mg PO DAILY@2199 [facility] Risperidone (Risperdal) 0.5 mg PO DAILY@0000 PRN PRN Reason: SEE LABEL COMMENTS Senna/Docusate Sodium (Joyce-Colace) 1 tab PO BID [facility] Last Admin: 10/15/18 21:02 Dose: 1 tab Sennosides (Senokot) 17.2 mg PO Q12H PRN PRN Reason: Moderate Constipation Last Admin: 10/06/18 10:15 Dose: 17.2 mg Sodium Chloride (Ns Flush) 2 ml IV.FLUSH BID [facility] Last Admin: 10/15/18 21:02 Dose: Not Given Sodium Chloride (Ns Flush) 2 ml IV.FLUSH PRN PRN PRN Reason: FLUSH AFTER USING IV ACCESS Temazepam (Restoril) 15 mg PO DAILY@2200 [facility] Temazepam (Restoril) 15 mg PO DAILY@0000 PRN PRN Reason: SEE LABEL COMMENTS Allergies/Adverse Reactions: Allergies Allergy/AdvReac Type Severity Reaction Status Date / Time doxycycline Allergy Severe Anaphylaxis Verified 10/03/18 20:08 sulfamethoxazole Allergy Severe Anaphylaxis Verified 10/03/18 20:08 trimethoprim Allergy Severe Anaphylaxis Verified 10/03/18 20:08 Physical Exam Vital signs: Vital Signs 10/15/18 07:31 10/15/18 08:00 10/15/18 11:30 Temperature 98.8 F Pulse Rate 70 95 H 92 H Respiratory Rate 20 19 20 Blood Pressure 150/87 H Pulse Oximetry 95 10/15/18 12:00 10/15/18 16:00 10/15/18 20:00 Temperature 98.8 F 98.2 F 98.5 F Pulse Rate 86 86 94 H Respiratory Rate 18 18 18 Blood Pressure 134/66 157/65 H 164/76 H Pulse Oximetry 97 96 97 10/15/18 20:57 10/16/18 00:00 10/16/18 04:00 Temperature 98.3 F 98.7 F Pulse Rate 93 H 93 H 95 H Respiratory Rate 18 18 18 Blood Pressure 172/72 H 167/76 H Pulse Oximetry 94 L 97 94 L Intake & Output 10/15/18 10/16/18 10/16/18 18:59 06:59 18:59 Intake Total 100 / 100 Output Total 1000 / 1000 300 / 300 Balance -900 / -900 -300 / -300 Weight 116.6 kg Intake: IV 100 / 100 Maxipime Inj 1,000 MG In NS Inj 100 / 100 100 ML @ 200 mls/hr IV.SIG Q24H [facility] Rx#:[id number] Output: Urine 1000 / 1000 300 / 300 Other: Date of Last Bowel Movement 10/15/18 # Bowel Movements 1 Narrative: awake got oob with PT yest [facility] - Urinary Catheter Management Indwelling Urethral Catheter Cath placed during this visit: yes Reason for continuing: Acute urinary retention Insertion date: 10/13/18 Insertion time: 11:00 Objective Laboratory Results - last 24 hr 10/15/18 06:13 RPR Nonreactive Microbiology 10/13/18 15:55 Aerobic Blood Culture - Preliminary Blood - Peripheral No growth in 2 days Anaerobic Blood Culture - Preliminary No growth in 2 days 10/13/18 15:50 Aerobic Blood Culture - Preliminary Blood - Peripheral No growth in 2 days Anaerobic Blood Culture - Preliminary No growth in 2 days 10/13/18 14:00 Urine Culture - Final Catheterized Urine No growth in 48 hours Review/Management - Review/Management Plan: imp mri pend did not sleep at all last noc so change sleep regiment and monitor sleep - 10/16/18 did not sleep last noc and regiment not repeated at midnight i [facility] will see how does candice
--- NOTE | 2018-10-16 07:32 | P.PN ---
Subjective Interval history: Follow up patient with discitis/osteomyelitis. Patient seen and examined. Patient remains oriented but delirious. She continues to have hallucinations. She does not verbalize any complaints. Physical Exam Vital signs: Vital Signs 10/15/18 08:00 10/15/18 11:30 10/15/18 12:00 Temperature 98.8 F 98.8 F Pulse Rate 95 H 92 H 86 Respiratory Rate 19 20 18 Blood Pressure 150/87 H 134/66 Pulse Oximetry 95 97 10/15/18 16:00 10/15/18 20:00 10/15/18 20:57 Temperature 98.2 F 98.5 F Pulse Rate 86 94 H 93 H Respiratory Rate 18 18 18 Blood Pressure 157/65 H 164/76 H Pulse Oximetry 96 97 94 L 10/16/18 00:00 10/16/18 04:00 Temperature 98.3 F 98.7 F Pulse Rate 93 H 95 H Respiratory Rate 18 18 Blood Pressure 172/72 H 167/76 H Pulse Oximetry 97 94 L Intake & Output 10/15/18 10/16/18 10/16/18 18:59 06:59 18:59 Intake Total 100 / 100 Output Total 1000 / 1000 300 / 300 Balance -900 / -900 -300 / -300 Weight 116.6 kg Intake: IV 100 / 100 Maxipime Inj 1,000 MG In NS Inj 100 / 100 100 ML @ 200 mls/hr IV.SIG Q24H [facility] Rx#:[id number] Output: Urine 1000 / 1000 300 / 300 Other: Date of Last Bowel Movement 10/15/18 # Bowel Movements 1 Narrative: GENERAL: WDWN obese AAF patient, INAD. Awake. Oriented but delirious. In soft restraints. SKIN: Warm and dry. HEENT: Atraumatic. Normocephalic. Pupils equal and round. No scleral icterus. No injection or drainage. No nasal bleeding or discharge. Mucous membranes pink and moist. NECK: Trachea midline. CARDIOVASCULAR: Regular rate and rhythm. No obvious murmur auscultated. RESPIRATORY: No accessory muscle use. Clear to auscultation. Breath sounds equal bilaterally. GASTROINTESTINAL: Abdomen soft, non-tender, nondistended. +BS. MUSCULOSKELETAL: Extremities without clubbing, cyanosis, or edema. No obvious deformities. NEUROLOGICAL: Awake and alert. No obvious cranial nerve deficits. Motor grossly within normal limits. Able to move all extremities spontaneously. Normal speech. PSYCHIATRIC: Insight and judgment poor. - Urinary Catheter Management Indwelling Urethral Catheter Cath placed during this visit: yes Reason for continuing: Acute urinary retention Insertion date: 10/13/18 Insertion time: 11:00 Results - Labs CBC & Chem 7: 10/13/18 15:55 10/16/18 07:38 Laboratory Results - last 24 hr 10/15/18 06:13 RPR Nonreactive Microbiology 10/13/18 15:55 Blood - Peripheral Aerobic Blood Culture - Preliminary No growth in 2 days 10/13/18 15:55 Blood - Peripheral Anaerobic Blood Culture - Preliminary No growth in 2 days 10/13/18 15:50 Blood - Peripheral Aerobic Blood Culture - Preliminary No growth in 2 days 10/13/18 15:50 Blood - Peripheral Anaerobic Blood Culture - Preliminary No growth in 2 days 10/13/18 14:00 Catheterized Urine Urine Culture - Final No growth in 48 hours - Imaging Impressions Head MRI 10/15/18 07:09 CONCLUSION: 1. Negative MR Brain non contrast. Assessment and Plan - Plan 62-year-old female with a past medical history significant for hypertension, CKD and hypothyroidism presents to the emergency department for the evaluation of lower back pain. Altered mental status/acute encephalopathy, recurrent 10/09 AMS, Halicat called, CT of the head negative, no evidence of acute infarct hemorrhage or mass edema. [place] likely due to polypharmacy and hypoxia. Possibly toxic metabolic encephalopathy/delirium secondary to infection Fever, resolved, patient is afebrile Cdiff neg 10/12 UA neg for infection ABG +hypoxia with O2 sat 83% on RA, now satting 99% on 2L BCX show no growth x 1 day Lab reviewed, unremarkable except for leukocytosis which is trending down. CXR shows mild patchy bilateral lower lobe airspace dz likely atelectasis CT lumbar spine shows no significant change from prior study, no drainable fluid collection low normal B12, started on supplementation -continue to hold all sedating medications and narcotics -Psychiatry following, appreciate assistance. Patient does not have capacity at this time. Continue on Zyprexa at night. -Neurology following, appreciate assistance. MRI of the brain ordered, negative per report. Risperdal added to help with sleep. -Discussed with Dr. Green who has requested LP for evaluation of possible meningoencephalitis. Suspected L4-L5 discitis Patient had outpatient MRI done which showed possible osteomyelitis of L3/L4 ( disc in patient's chart) Patient with leukocytosis, elevated ESR/CRP -ID following, appreciate assistance. CT a/p neg for iliopsoas abscess. s/p CT guided bx with IR, cx with no growth. Continue on IV Cefepime per ID. -10/09/18 Repeat lumbar MRI of the spine showed changes consistent with discitis at L3-L4 without abscess. Diffuse degenerative changes without central canal stenosis. Potential left L3 neural foraminal impingement. 10/[address] ordered due to acute encephalopathy, no evidence of worsening fluid collection/abscess -Neurosurgery consulted, appreciate assistance. No surgical intervention at this time. Sepsis, secondary to PNA CXR showing questionable subtle small infiltrate in the medial right upper lobe. -IV Ceftriaxone switched to Cefepime -ID following as above Urinary retention patient pulled out gamboa last night Bladder scan reading 412, gamboa catheter placed and 1100cc urine drained -UA not suggestive of UTI -monitor I&Os Anemia, acute on chronic -s/p 1 unit PRBCs -no evidence of active bleeding, continue to monitor -repeat CBC shows stable H/H Hypertension BP not well controlled -continue on Norvasc -Increase dose of Atenolol -Add Hydralazine 25mg TID -continue to monitor BP Hypothyroidism TSH level elevated but free T4 normal -patient has been refusing Synthroid intermittently -continue present dose of Synthroid -patient will need to have TSH rechecked as outpatient in 4-6 weeks Chronic kidney disease Creatinine near baseline for the patient -Avoid nephrotoxic agents -Monitor renal function as indicated Constipation, chronic -continue bowel regimen -monitor BM pattern Hx of lymphoma s/p radiation therapy, in remission -monitor Morbidly obese BMI 37.6 -patient would benefit from weight loss therapy, regular exercise program DVT prophylaxis -bilateral SCD/TRINITY hose Discharge Planning: Not ready for discharge
[2018-10-16] MEDS: Pantoprazole Sodium 20 MG DR Tablet PO SCH ×2 (08:40→20:26)
[2018-10-16] MEDS: amLODIPine 10 MG Tablet PO SCH (08:40)
[2018-10-16] MEDS: Atenolol 50 MG Tablet PO SCH (08:40)
[2018-10-16] MEDS: hydrALAZINE 25 MG Tablet PO SCH ×2 (08:40→13:02)
[2018-10-16] MEDS: Senna/Docusate Sodium 8.6/50 MG Tablet PO SCH ×2 (08:40→20:26)
[2018-10-16] MEDS: Heparin - SQ 10,000 UNITS/ML Vial SQ SCH ×2 (08:41→20:27)
[2018-10-16] MEDS: Lidocaine 5% Patch T-DERMAL SCH (08:41)
[2018-10-16] MEDS: Calcitriol 0.25 MCG Capsule PO SCH (08:41)
[2018-10-16] MEDS: Sodium Chloride 0.9% 2 ML Flush BID IV.FLUSH SCH ×2 (10:28→20:27)
--- NOTE | 2018-10-16 14:35 | P.RAD ---
Post Procedure Progress Note - Procedure Information Procedure Date: 10/16/18 Supervising Radiologist: Barrett Blair MD Estimated blood loss (mL): 0 Anesthesia: Local - Plan of Activity Patient to Unit: [facility] Patient Condition: Good See PACS Report for procedural detail/treatment.
[2018-10-16] MEDS ORDERED: hydrALAZINE 25 MG Tablet PO SCH (15:16)
--- NOTE | 2018-10-16 15:32 | P.PNID ---
Subjective Remarks: Ms. Ontiveros is a 62-year-old -[place] female with past medical history significant for lymphoma status post radiation therapy alone in 1973. Thereafter patient reports she has had a repeat PET scan a couple years back which is negative for any recurrence of lymphoma. Patient does follow-up with Dr. Thomson are hematology oncology physician for chronic anemia. Patient reports that she has received Neupogen in the past but more recently she has been unable to afford the co-pay and therefore stopped it. Patient also reports a history of chronic kidney disease stage III progressing to stage IV and she sees possibly Dr. Hai Salmon as outpatient. She reports she has not been on dialysis and does not have any AV fistula. Patient also reports that she has been diagnosed with possibly rheumatoid arthritis as well as osteoarthritis and has had chronic back pain for many years. Her medical records also reveal chronic obesity with its complications such as osteoarthritis needing bilateral total knee replacements. Upon review of medical records it appears that patient was admitted in April 2018 for E. coli UTI as well as transient E. coli bacteremia treated with oral cephalosporin. Thereafter patient reports she was doing fairly okay up until 3-4 weeks prior to admission. Approximately 3-4 weeks prior to admission patient started noticing lower back pain that radiated to the left side and down her left lower extremity. She denies any fever chills or night sweats. She denies any bowel bladder incontinence. She denies any paresthesias or saddle anesthesia. She reports that at baseline she uses a walker since the year 2001 even before her total knee replacements. She reports that at baseline she is able to ambulate with a walker but most of the chores at home as well as cooking are done by her . Patient was seen by her primary care physician who performed an MRI of the spine as outpatient. Due to concern for osteomyelitis of the spine patient was referred to outpatient infectious disease Dr. Boothe who then recommended the patient be admitted to the hospital based on a phone conversation with her primary care physician. After admission patient has been evaluated by neurosurgery. Upon my discussion with neurosurgery it appears that there is no epidural abscess or drainable focus at this time. Due to concern for osteomyelitis of the spine and leukocytosis CT-guided lumbar spine biopsy would be recommended. Infectious diseases consulted for evaluation and management of spinal discitis/ osteomyelitis. Notes reviewed Back pain better controlled. No fever No rash No diarrhea Antibiotics: Cefepime IV Lines: Lines ok Past Medical History: reviewed Allergies/Adverse Reactions: Allergies doxycycline Allergy (Severe, Verified 10/03/18 20:08) Anaphylaxis sulfamethoxazole Allergy (Severe, Verified 10/03/18 20:08) Anaphylaxis trimethoprim Allergy (Severe, Verified 10/03/18 20:08) Anaphylaxis Objective Vital Signs 10/15/18 16:00 10/15/18 20:00 10/15/18 20:57 Temperature 98.2 F 98.5 F Pulse Rate 86 94 H 93 H Respiratory Rate 18 18 18 Blood Pressure 157/65 H 164/76 H Pulse Oximetry 96 97 94 L 10/16/18 00:00 10/16/18 04:00 10/16/18 08:00 Temperature 98.3 F 98.7 F 97.2 F L Pulse Rate 93 H 95 H 92 H Respiratory Rate 18 18 20 Blood Pressure 172/72 H 167/76 H 156/82 H Pulse Oximetry 97 94 L 92 L 10/16/18 08:49 10/16/18 12:00 10/16/18 12:45 Temperature 98.1 F Pulse Rate 99 H 85 86 Respiratory Rate 18 13 18 Blood Pressure 157/69 H Pulse Oximetry 93 L 92 L 10/16/18 15:14 Temperature 97.9 F Pulse Rate 90 Respiratory Rate 13 Blood Pressure 167/70 H Pulse Oximetry 95 Intake & Output 10/15/18 10/16/18 10/16/18 18:59 06:59 18:59 Intake Total 100 / 100 100 / 100 Output Total 1000 / 1000 300 / 300 1390 / 1390 Balance -900 / -900 -300 / -300 -1290 / -1290 Weight 116.6 kg Intake: IV 100 / 100 100 / 100 Maxipime Inj 1,000 MG In NS Inj 100 / 100 100 / 100 100 ML @ 200 mls/hr IV.SIG Q24H [facility] Rx#:[id number] Output: Urine 1000 / 1000 300 / 300 1390 / 1390 Other: # Voids 1 Date of Last Bowel Movement 10/15/18 # Bowel Movements 1 10/16/18 14:20 Lumbar Puncture Gram Stain - Pending 10/16/18 14:20 Lumbar Puncture CSF Culture - Pending 10/16/18 14:20 Cerebral Spinal Fluid - Lumbar Puncture Fungal Smear - Pending 10/16/18 14:20 Cerebral Spinal Fluid - Lumbar Puncture Fungal Culture - Pending 10/16/18 14:20 Cerebral Spinal Fluid - Lumbar Puncture Acid Fast Bacilli Smear - Pending 10/16/18 14:20 Cerebral Spinal Fluid - Lumbar Puncture Mycobacterial Culture - Pending 10/13/18 15:55 Blood - Peripheral Aerobic Blood Culture - Preliminary No growth in 3 days 10/13/18 15:55 Blood - Peripheral Anaerobic Blood Culture - Preliminary No growth in 3 days 10/13/18 15:50 Blood - Peripheral Aerobic Blood Culture - Preliminary No growth in 3 days 10/13/18 15:50 Blood - Peripheral Anaerobic Blood Culture - Preliminary No growth in 3 days 10/13/18 14:00 Catheterized Urine Urine Culture - Final No growth in 48 hours 10/09/18 00:35 Blood - Other Aerobic Blood Culture - Final No growth in 5 days 10/09/18 00:35 Blood - Other Anaerobic Blood Culture - Final QNS - See aerobic report. 10/09/18 00:40 Blood - Other Aerobic Blood Culture - Final No growth in 5 days 10/09/18 00:40 Blood - Other Anaerobic Blood Culture - Final QNS - See aerobic report. Lab - Chemistry Results 10/15/18 10/16/18 06:13 07:38 Creatinine 1.60 H Estimated GFR 39 L Ammonia 11 Imaging: ITS Impressions Needle Biopsy/Aspiration X-Ray 10/05/18 00:00 CONCLUSION: 1. Uncomplicated L3-L4 disc aspiration as above. Abdomen/Pelvis CT 10/05/18 10:07 CONCLUSION: 1. There are advanced degenerative changes throughout the lumbar spine. There is some cortical irregularity of the vertebral endplates across the L3/4 disc level. Presumably there is outside cross-sectional imaging through this area. There was concern for possible abscess in the iliopsoas muscle. There is some subtle decreased attenuation in the muscle on the left side just beneath the L3- 4 disc space but I do not see a definite defined drainable collection by noncontrast imaging. If possible, postcontrast imaging may be of benefit for more definitive assessment. 2. There are 2 low-attenuation lesions within the liver. These are too small to definitively characterize by noncontrast CT. 3. The patient is post splenectomy. Head CT 10/09/18 00:00 CONCLUSION: 1. Negative CT Head non contrast. 2. No evidence of acute infarct, hemorrhage, mass or edema. . Lumbar Spine MRI 10/09/18 00:00 CONCLUSION: 1. Changes consistent with discitis at L3-L4 without abscess. 2. Diffuse degenerative changes without central canal stenosis. Potential left L3 neural foraminal impingement. Details given above. Chest X-Ray 10/13/18 00:00 CONCLUSION: 1. Mild patchy bilateral lower lobe airspace disease which may reflect atelectasis. Lumbar Spine CT 10/13/18 00:00 CONCLUSION: 1. Discitis changes at L3/L4 again noted. The disc space narrowing and vertebral body endplate irregularity is mostly towards the left. No significant change from the prior MRI. No perceptible drainable fluid collection. Head MRI 10/15/18 07:09 CONCLUSION: 1. Negative MR Brain non contrast. Physical Exam: GENERAL: Morbidly obese well-developed, not in acute distress SKIN: Cool and dry, no generalized rash HEAD: Atraumatic. Normocephalic. No temporal or scalp tenderness. EYES: Pupils equal round and reactive. Scleral icterus. No injection or drainage. No petechia ENT: Nothing abnormal detected NECK: Trachea midline. Supple, nontender, no meningeal signs. CARDIOVASCULAR: HS audible. RESPIRATORY: Clear to auscultation bilaterally. GASTROINTESTINAL: Abdomen soft nontender. MUSCULOSKELETAL: Extremities without clubbing, cyanosis. Total knee replacement site with no evidence of infection. NEUROLOGICAL: Alert oriented 3. Nonfocal. Psych cooperative IV line sites ok. Assessment and Plan - Plan Suspected L4-L5 discitis Prior history of lymphoma status post radiation therapy now in remission. Acute metabolic encephalopathy: sepsis, r/o meningoencephalitis. Aspiration Pneumonia. Morbid obesity BMI 37.9 kg/m square Allergy to doxycycline and Bactrim reported as airway swelling. Chronic kidney disease age 2 Recs: Continue Cefepime IV for possible aspiration in addition to it covers Discitis. Biopsy Cultures prob will be negative - she got 2 doses IV vanco 10/04 and 10/05 , and 4 doses of IV Zosyn last dose given 09/24 Monitor progress Discussed with NESSA Rodriguez:order LP to rule out secondary meningoencephalitis. dw as well. Follow LP results.
[2018-10-16 15:37] LABS: Total Protein,CSF 47.5 mg/dL (15.0-45.0)
[2018-10-16 15:52] LABS: RBC on Tube 4 2841 /mm3
[2018-10-16 15:53] LABS: RBC on Tube 1 5717 /mm3
[2018-10-16] MEDS: Acetaminophen Inj 650 MG/65 ML VIAL IV.SIG PRN (15:58)
[2018-10-16 15:59] LABS: Lymphocytes, CSF 10 %; Neutrophils,CSF 90 %
[2018-10-16] MEDS: Sod Chloride 0.9% Inj 1,000 ML IV.CONT SCH (17:50)
--- NOTE | 2018-10-16 18:48 | IR ---
EXAM DATE: 10/16/2018 2:54 PM EST AGE/SEX: 62 years / Female INDICATIONS: Patient presents with Altered Mental Status in need of Lumbar Puncture with Opening Pre ssures for evaluation. CLINICAL DATA: This is the patient's initial encounter. Patient reports that signs and symptoms have been present for 2 weeks and indicates a pain score of 0/10. MEDICAL/SURGICAL HISTORY: . Hypothyroidism, Chronic Kidney Disease, Hyperlipidemia, Hypertensio n . Cholecystectomy, Total Knee Replacement, Splenectomy, Thyroidectomy. COMPARISON: No prior exams available for comparison. FLUORO TIME (min): 0.18 IMAGE SERIES: 2 ACCESS SITE: L3-4 LUMBAR PUNCTURE TIME: 1420 hours OPENING PRESSURE: 16 cm of water CLOSING PRESSURE: not requested FLUID: Total volume of 12 cc of clear, red fluid was removed. Fluid was sent to lab for ordered studi es. ; . . PROCEDURE: 1. Fluoroscopic guided lumbar puncture. The risks, benefits and alternatives to the procedure were explained and verbal and written consent w as obtained. The site was prepped in sterile fashion. Full sterile technique was used, including ca p, mask, sterile gloves and gown and a large sterile sheet. Hand hygiene and 2% chlorhexidine and/or betadine/alcohol prep was utilized per protocol for cutaneous antisepsis. The skin and subcutaneous tissues were infiltrated with local anesthetic solution. With fluoroscopic guidance the lumbar thecal sac was punctured at the level above. The fluid describ ed above was removed without difficulty. The patient tolerated the procedure well and there were no complications. CONCLUSION: 1. Uncomplicated fluoroscopically guided lumbar puncture. Electronically signed by: Barrett Blair MD 10/16/2018 6:47 PM EST
[2018-10-16] MEDS: Temazepam 15 MG Capsule PO SCH (22:33)
[2018-10-17] MEDS: Levothyroxine 112 MCG Tablet PO SCH (05:47)
--- NOTE | 2018-10-17 07:39 | P.PN ---
Subjective Interval history: Patient appears less delirious this morning. She is partially oriented. She reports dry mouth. She denies any fever or chills. She denies any cough, chest pain or dyspnea. She denies any nausea, vomiting or abdominal pain. She does not voice any acute medical complaints or concerns. She is out of restraints. Physical Exam Vital signs: Vital Signs 10/16/18 08:00 10/16/18 08:49 10/16/18 12:00 Temperature 97.2 F L 98.1 F Pulse Rate 92 H 99 H 85 Respiratory Rate 20 18 13 Blood Pressure 156/82 H 157/69 H Pulse Oximetry 92 L 93 L 92 L 10/16/18 12:45 10/16/18 15:14 10/16/18 15:34 Temperature 97.9 F 97.8 F Pulse Rate 86 90 84 Respiratory Rate 18 13 14 Blood Pressure 167/70 H 139/63 Pulse Oximetry 95 95 10/16/18 16:00 10/16/18 16:30 10/16/18 19:46 Temperature 97.2 F L Pulse Rate 86 84 Respiratory Rate 14 14 18 Blood Pressure 148/65 H Pulse Oximetry 94 L 10/16/18 19:47 10/16/18 20:00 10/17/18 00:00 Temperature 97.9 F 97.7 F Pulse Rate 86 89 Respiratory Rate 18 18 Blood Pressure 147/66 H 154/67 H Pulse Oximetry 96 97 95 10/17/18 04:00 Temperature 97.8 F Pulse Rate 86 Respiratory Rate 18 Blood Pressure 160/68 H Pulse Oximetry 95 Intake & Output 10/16/18 10/17/18 10/17/18 18:59 06:59 18:59 Intake Total 165 / 165 200 / 200 Output Total 1390 / 1390 725 / 725 Balance -1225 / -1225 -525 / -525 Weight 115.468 kg Intake: IV 165 / 165 Ofirmev Inj 650 mg In 65 ml @ 65 / 65 400 mls/hr IV.SIG Q6H PRN Rx#: [id number] Maxipime Inj 1,000 MG In NS Inj 100 / 100 100 ML @ 200 mls/hr IV.SIG Q24H [facility] Rx#:[id number] Oral 200 / 200 Output: Urine 1390 / 1390 525 / 525 Urine Amount (Catheter) 200 / 200 Indwelling Urethral Catheter 200 / 200 Other: # Voids 1 Date of Last Bowel Movement 10/15/18 Narrative: GENERAL: WDWN obese AAF patient, INAD. Awake. Oriented x 1-2. Out of restraints. SKIN: Warm and dry. No generalized rash. HEENT: Atraumatic. Normocephalic. Pupils equal and round. No scleral icterus. No injection or drainage. No nasal bleeding or discharge. Mucous membranes pink and moist. NECK: Trachea midline. CARDIOVASCULAR: Regular rate and rhythm. No obvious murmur auscultated. RESPIRATORY: No accessory muscle use. Clear to auscultation. Breath sounds equal bilaterally. GASTROINTESTINAL: Abdomen soft, non-tender, nondistended. +BS. GENITOURINARY: Gamboa catheter in place with clear urine in bag. MUSCULOSKELETAL: Extremities without clubbing, cyanosis, or edema. No obvious deformities. NEUROLOGICAL: Awake and alert. No obvious cranial nerve deficits. Motor grossly within normal limits. Able to move all extremities spontaneously. Normal speech. PSYCHIATRIC: Insight and judgment poor. - Urinary Catheter Management Indwelling Urethral Catheter Cath placed during this visit: yes Reason for continuing: Acute urinary retention Insertion date: 10/13/18 Insertion time: 11:00 Results - Labs CBC & Chem 7: 10/13/18 15:55 10/16/18 07:38 Laboratory Results - last 24 hr 10/16/18 10/16/18 10/16/18 07:38 14:20 14:20 Creatinine 1.60 H Estimated GFR 39 L CSF Volume (1) 2.5 CSF Supernat Color (1) Clear CSF Gross Blood (1) 4+ A CSF WBC (1) CSF RBC (1) CSF Volume (2) 2.0 CSF Supernat Color (2) Clear CSF Gross Blood (2) 4+ A CSF Volume (3) 2.0 CSF Supernat Color (3) Clear CSF Gross Blood (3) 4+ A CSF Volume (4) 4.5 CSF Supernat Color (4) Clear CSF Gross Blood (4) 4+ A CSF WBC (4) 18 H CSF RBC (4) 2841 H CSF Neutrophils % 90 CSF Lymphocytes % 10 CSF Glucose CSF Lactic Acid CSF Total Protein CSF N.mening B/E.coli K1 Cancelled CSF N.meningitidis A/Y Cancelled Bacterial Ag Source Cancelled H.influenzae Type B Ag Cancelled N. meningitidis C/W 135 Cancelled Group B Strep Antigen Cancelled S. pneumoniae Antigen Cancelled 10/16/18 10/16/18 10/16/18 14:20 14:20 14:20 Creatinine Estimated GFR CSF Volume (1) CSF Supernat Color (1) CSF Gross Blood (1) CSF WBC (1) CSF RBC (1) CSF Volume (2) CSF Supernat Color (2) CSF Gross Blood (2) CSF Volume (3) CSF Supernat Color (3) CSF Gross Blood (3) CSF Volume (4) CSF Supernat Color (4) CSF Gross Blood (4) CSF WBC (4) CSF RBC (4) CSF Neutrophils % CSF Lymphocytes % CSF Glucose Cancelled 51 CSF Lactic Acid Cancelled 1.4 CSF Total Protein 47.5 H CSF N.mening B/E.coli K1 CSF N.meningitidis A/Y Bacterial Ag Source H.influenzae Type B Ag N. meningitidis C/W 135 Group B Strep Antigen S. pneumoniae Antigen 10/16/18 14:20 Creatinine Estimated GFR CSF Volume (1) CSF Supernat Color (1) CSF Gross Blood (1) CSF WBC (1) 40 H CSF RBC (1) 5717 H CSF Volume (2) CSF Supernat Color (2) CSF Gross Blood (2) CSF Volume (3) CSF Supernat Color (3) CSF Gross Blood (3) CSF Volume (4) CSF Supernat Color (4) CSF Gross Blood (4) CSF WBC (4) CSF RBC (4) CSF Neutrophils % CSF Lymphocytes % CSF Glucose CSF Lactic Acid CSF Total Protein CSF N.mening B/E.coli K1 CSF N.meningitidis A/Y Bacterial Ag Source H.influenzae Type B Ag N. meningitidis C/W 135 Group B Strep Antigen S. pneumoniae Antigen Microbiology 10/16/18 14:20 Cerebral Spinal Fluid - Lumbar Puncture Fungal Smear - Final No fungal elements seen 10/16/18 14:20 Lumbar Puncture Gram Stain - Final 10/13/18 15:55 Blood - Peripheral Aerobic Blood Culture - Preliminary No growth in 3 days 10/13/18 15:55 Blood - Peripheral Anaerobic Blood Culture - Preliminary No growth in 3 days 10/13/18 15:50 Blood - Peripheral Aerobic Blood Culture - Preliminary No growth in 3 days 10/13/18 15:50 Blood - Peripheral Anaerobic Blood Culture - Preliminary No growth in 3 days - Imaging Impressions Lumbar Puncture Fluoroscopy 10/16/18 10:42 CONCLUSION: 1. Uncomplicated fluoroscopically guided lumbar puncture. Assessment and Plan - Plan 62-year-old female with a past medical history significant for hypertension, CKD and hypothyroidism presents to the emergency department for the evaluation of lower back pain. Altered mental status/acute encephalopathy, recurrent 10/09 AMS, Halicat called, CT of the head negative, no evidence of acute infarct hemorrhage or mass edema. [place] likely due to polypharmacy and hypoxia. Possibly toxic metabolic encephalopathy/delirium secondary to infection Fever, resolved, patient is afebrile Cdiff neg 10/12 UA neg for infection ABG +hypoxia with O2 sat 83% on RA, now satting 99% on 2L BCX show no growth x 1 day Lab reviewed, unremarkable except for leukocytosis which is trending down. CXR shows mild patchy bilateral lower lobe airspace dz likely atelectasis CT lumbar spine shows no significant change from prior study, no drainable fluid collection low normal B12, started on supplementation low normal thiamin, start on supplementation daily -continue to hold all sedating medications and narcotics -Psychiatry following, appreciate assistance. Patient does not have capacity at this time. Continue on Zyprexa at night. -Neurology following, appreciate assistance. MRI of the brain ordered, negative per report. Risperdal added to help with sleep. -Discussed with Dr. Green who has requested LP for evaluation of possible meningoencephalitis. LP done 10/16 - CSF 40, RBC 5717, Glc 51, TP 47.5, VDRL, HSV and Cx pending Suspected L4-L5 discitis Patient had outpatient MRI done which showed possible osteomyelitis of L3/L4 ( disc in patient's chart) Patient with leukocytosis, elevated ESR/CRP -ID following, appreciate assistance. CT a/p neg for iliopsoas abscess. s/p CT guided bx with IR, cx with no growth. Continue on IV Cefepime per ID. -10/09/18 Repeat lumbar MRI of the spine showed changes consistent with discitis at L3-L4 without abscess. Diffuse degenerative changes without central canal stenosis. Potential left L3 neural foraminal impingement. 10/[address] ordered due to acute encephalopathy, no evidence of worsening fluid collection/abscess -Neurosurgery consulted, appreciate assistance. No surgical intervention at this time. Sepsis, secondary to PNA CXR showing questionable subtle small infiltrate in the medial right upper lobe. -IV Ceftriaxone switched to Cefepime -ID following as above Urinary retention patient pulled out gamboa last night Bladder scan reading 412, gamboa catheter placed and 1100cc urine drained -UA not suggestive of UTI -monitor I&Os -plan to d/c gamboa and voiding trial tomorrow Anemia, acute on chronic -s/p 1 unit PRBCs -no evidence of active bleeding, continue to monitor -repeat CBC shows stable H/H Hypertension BP improved -continue on Norvasc, Atenolol and Hydralazine -continue to monitor BP Hypothyroidism TSH level elevated but free T4 normal -patient has been refusing Synthroid intermittently -continue present dose of Synthroid -patient will need to have TSH rechecked as outpatient in 4-6 weeks Chronic kidney disease Creatinine near baseline for the patient -Avoid nephrotoxic agents -Monitor renal function as indicated Constipation, chronic -continue bowel regimen -monitor BM pattern Hx of lymphoma s/p radiation therapy, in remission -monitor Morbidly obese BMI 37.6 -patient would benefit from weight loss therapy, regular exercise program DVT prophylaxis -bilateral SCD/TRINITY rodgers Discussed Condition With: patient, nursing staff, Dr. Reynoso Discharge Planning: Not ready for discharge
[2018-10-17] MEDS: Atenolol 50 MG Tablet PO SCH (09:16)
[2018-10-17] MEDS: Heparin - SQ 10,000 UNITS/ML Vial SQ SCH ×2 (09:17→20:55)
[2018-10-17] MEDS: amLODIPine 10 MG Tablet PO SCH (09:17)
[2018-10-17] MEDS: Calcitriol 0.25 MCG Capsule PO SCH (09:17)
[2018-10-17] MEDS: Senna/Docusate Sodium 8.6/50 MG Tablet PO SCH ×2 (09:17→20:55)
[2018-10-17] MEDS: Pantoprazole Sodium 20 MG DR Tablet PO SCH ×2 (09:17→20:55)
[2018-10-17] MEDS: hydrALAZINE 25 MG Tablet PO SCH ×3 (09:17→17:54)
[2018-10-17] MEDS: Lidocaine 5% Patch T-DERMAL SCH (09:18)
[2018-10-17] MEDS: Sodium Chloride 0.9% 2 ML Flush BID IV.FLUSH SCH ×2 (09:18→20:56)
[2018-10-17] MEDS: Sod Chloride 0.9% Inj 1,000 ML IV.CONT SCH (20:56)
[2018-10-17] MEDS: Temazepam 15 MG Capsule PO SCH (21:53)
[2018-10-18] MEDS: Acetaminophen Inj 650 MG/65 ML VIAL IV.SIG PRN (03:53)
[2018-10-18] MEDS: Levothyroxine 112 MCG Tablet PO SCH (06:26)
[2018-10-18] MEDS: Calcitriol 0.25 MCG Capsule PO SCH (08:29)
[2018-10-18] MEDS: Atenolol 50 MG Tablet PO SCH (08:29)
[2018-10-18] MEDS: Senna/Docusate Sodium 8.6/50 MG Tablet PO SCH ×2 (08:29→20:59)
[2018-10-18] MEDS: hydrALAZINE 25 MG Tablet PO SCH ×3 (08:30→17:02)
[2018-10-18] MEDS: Sodium Chloride 0.9% 2 ML Flush BID IV.FLUSH SCH ×2 (08:30→20:52)
[2018-10-18] MEDS: Pantoprazole Sodium 20 MG DR Tablet PO SCH ×2 (08:30→20:51)
[2018-10-18] MEDS: amLODIPine 10 MG Tablet PO SCH (08:30)
[2018-10-18] MEDS: Heparin - SQ 10,000 UNITS/ML Vial SQ SCH ×2 (08:30→20:49)
[2018-10-18] MEDS: Lidocaine 5% Patch T-DERMAL SCH (08:36)
--- NOTE | 2018-10-18 09:07 | P.PNNEU ---
Subjective Active Medications: Active Medications Acetaminophen (Tylenol) 650 mg PO Q4H PRN PRN Reason: Temp > 100.4 Hydrocodone Bitart/Acetaminophen ([place] 5/325) 1 tab PO Q6H PRN PRN Reason: Pain 1-5 Last Admin: 10/11/18 10:41 Dose: 1 tab Hydrocodone Bitart/Acetaminophen ([place] 10/325) 1 tab PO Q6H PRN PRN Reason: Pain 6-10 Amlodipine Besylate (Norvasc) 10 mg PO DAILY [facility] Last Admin: 10/18/18 08:30 Dose: 10 mg Atenolol (Tenormin) 75 mg PO DAILY [facility] Last Admin: 10/18/18 08:29 Dose: 75 mg Bisacodyl (Dulcolax Supp) 10 mg RECTAL DAILY PRN PRN Reason: SEVERE CONSITIPATION Calcitriol (Rocaltrol) 0.25 mcg PO DAILY [facility] Last Admin: 10/18/18 08:29 Dose: 0.25 mcg Clonidine HCl (Catapres) 0.1 mg PO Q6H PRN PRN Reason: SBP>180 OR DBP >95 Cyanocobalamin (Vitamin B12) 1,000 mcg PO DAILY [facility] Last Admin: 10/18/18 08:30 Dose: 1,000 mcg Cyclobenzaprine HCl (Flexeril) 10 mg PO BID [facility] Last Admin: 10/13/18 10:02 Dose: Not Given Heparin Sodium (Porcine) (Heparin Inj) 5,000 units SQ Q12HR [facility] Last Admin: 10/18/18 08:30 Dose: 5,000 units Hydralazine HCl (Apresoline) 25 mg PO TID [facility] Last Admin: 10/18/18 08:30 Dose: 25 mg Sodium Chloride (Ns Inj) 1,000 mls @ 42 mls/hr IV.CONT .[id number] [facility] Last Admin: 10/17/18 20:56 Dose: 42 mls/hr Cefepime HCl 1,000 mg/ Sodium (Chloride) 100 mls @ 200 mls/hr IV.SIG Q24H [facility] Last Infusion: 10/17/18 14:07 Dose: Infused Acetaminophen (Ofirmev Inj) 650 mg in 65 mls @ 400 mls/hr IV.SIG Q6H PRN PRN Reason: PAIN 1-10 OR TEMP > 100.4 F Last Infusion: 10/18/18 04:19 Dose: Infused Levothyroxine Sodium (Synthroid) 112 mcg PO DAILY@0600 [facility] Last Admin: 10/18/18 06:26 Dose: 112 mcg Levothyroxine Sodium (Synthroid) 25 mcg PO DAILY@0600 [facility] Last Admin: 10/18/18 06:25 Dose: 25 mcg Lidocaine HCl (Lidoderm 5% Patch.12 Hr) 1 patch T-DERMAL DAILY [facility] Last Admin: 10/18/18 08:36 Dose: 1 patch Miscellaneous (Pill Splitter) 1 each OTHER UNSCH PRN PRN Reason: PILL SPLITTING Morphine Sulfate (Morphine Inj) 2 mg IV.PUSH Q4H PRN PRN Reason: BREAKTHROUGH PAIN Last Admin: 10/06/18 15:15 Dose: 2 mg Ondansetron HCl (Zofran Inj) 4 mg IV.PUSH Q6H PRN PRN Reason: NAUSEA OR VOMITING Last Admin: 10/16/18 10:46 Dose: 4 mg Pantoprazole Sodium (Protonix) 20 mg PO BID [facility] Last Admin: 10/18/18 08:30 Dose: 20 mg Patch Removal (Remove Old Patch) 1 each T-DERMAL HS [facility] Last Admin: 10/17/18 20:56 Dose: 1 each Risperidone (Risperdal) 0.5 mg PO DAILY@0 [facility] Last Admin: 10/17/18 21:53 Dose: 0.5 mg Risperidone (Risperdal) 0.5 mg PO DAILY@0000 PRN PRN Reason: SEE LABEL COMMENTS Senna/Docusate Sodium (Joyce-Colace) 1 tab PO BID [facility] Last Admin: 10/18/18 08:29 Dose: 1 tab Sennosides (Senokot) 17.2 mg PO Q12H PRN PRN Reason: Moderate Constipation Last Admin: 10/06/18 10:15 Dose: 17.2 mg Sodium Chloride (Ns Flush) 2 ml IV.FLUSH BID [facility] Last Admin: 10/18/18 08:30 Dose: Not Given Sodium Chloride (Ns Flush) 2 ml IV.FLUSH PRN PRN PRN Reason: FLUSH AFTER USING IV ACCESS Temazepam (Restoril) 15 mg PO DAILY@2200 [facility] Last Admin: 10/17/18 21:53 Dose: 15 mg Temazepam (Restoril) 15 mg PO DAILY@0000 PRN PRN Reason: SEE LABEL COMMENTS Thiamine HCl (Vitamin B1) 100 mg PO BID [facility] Last Admin: 10/18/18 08:30 Dose: 100 mg Allergies/Adverse Reactions: Allergies Allergy/AdvReac Type Severity Reaction Status Date / Time doxycycline Allergy Severe Anaphylaxis Verified 10/03/18 20:08 sulfamethoxazole Allergy Severe Anaphylaxis Verified 10/03/18 20:08 trimethoprim Allergy Severe Anaphylaxis Verified 10/03/18 20:08 Physical Exam Vital signs: Vital Signs 10/17/18 12:00 10/17/18 12:08 10/17/18 16:00 Temperature 98.0 F 92.9 F L Pulse Rate 82 90 84 Respiratory Rate 16 18 15 Blood Pressure 138/62 138/63 Pulse Oximetry 95 94 L 10/17/18 20:00 10/17/18 20:23 10/18/18 00:00 Temperature 99.2 F Pulse Rate 85 79 Respiratory Rate 21 Blood Pressure 153/65 H Pulse Oximetry 99 98 10/18/18 01:36 10/18/18 03:08 10/18/18 07:00 Temperature 98.2 F Pulse Rate 87 Respiratory Rate 16 18 12 Blood Pressure 140/65 Pulse Oximetry 98 Intake & Output 10/17/18 10/18/18 10/18/18 18:59 06:59 18:59 Intake Total 100 / 100 65 / 65 Output Total 550 / 550 Balance 100 / 100 -485 / -485 Weight 115.48 kg Intake: IV 100 / 100 65 / 65 Ofirmev Inj 650 mg In 65 ml @ 65 / 65 400 mls/hr IV.SIG Q6H PRN Rx#: [id number] Maxipime Inj 1,000 MG In NS Inj 100 / 100 100 ML @ 200 mls/hr IV.SIG Q24H [facility] Rx#:[id number] Output: Urine Amount (Catheter) 550 / 550 Indwelling Urethral Catheter 550 / 550 Other: Date of Last Bowel Movement 10/15/18 10/17/18 Narrative: awake alert sep 2018 moves all well co lbp - Urinary Catheter Management Indwelling Urethral Catheter Cath placed during this visit: yes Reason for continuing: Chronic Urinary Retention Insertion date: 10/13/18 Insertion time: 11:00 Objective Laboratory Results - last 24 hr 10/15/18 06:13 RBC Folate 242 L Microbiology 10/16/18 14:20 Gram Stain - Final Lumbar Puncture CSF Culture - Preliminary No growth in 48 hours 10/13/18 15:55 Aerobic Blood Culture - Preliminary Blood - Peripheral No growth in 4 days Anaerobic Blood Culture - Preliminary No growth in 4 days 10/13/18 15:50 Aerobic Blood Culture - Preliminary Blood - Peripheral No growth in 4 days Anaerobic Blood Culture - Preliminary No growth in 4 days Review/Management - Review/Management Plan: imp mri pend did not sleep at all last noc so change sleep regiment and monitor sleep - 10/16/18 did not sleep last noc and regiment not repeated at midnight i dw pharmacy will see how does tonight 10/18/18 slept 5 plus hours doing well neurowise needs to get oob 18 wbc csf could be from parameningeal source disc cx neg need to get her ambulating and oob scd
[2018-10-18] MEDS: Acetaminophen 325 MG Tablet PO PRN (10:34)
--- NOTE | 2018-10-18 14:46 | P.PNID ---
Subjective Remarks: Ms. Ontiveros is a 62-year-old -[place] female with past medical history significant for lymphoma status post radiation therapy alone in 1973. Thereafter patient reports she has had a repeat PET scan a couple years back which is negative for any recurrence of lymphoma. Patient does follow-up with Dr. Thomson are hematology oncology physician for chronic anemia. Patient reports that she has received Neupogen in the past but more recently she has been unable to afford the co-pay and therefore stopped it. Patient also reports a history of chronic kidney disease stage III progressing to stage IV and she sees possibly Dr. Hai Salmon as outpatient. She reports she has not been on dialysis and does not have any AV fistula. Patient also reports that she has been diagnosed with possibly rheumatoid arthritis as well as osteoarthritis and has had chronic back pain for many years. Her medical records also reveal chronic obesity with its complications such as osteoarthritis needing bilateral total knee replacements. Upon review of medical records it appears that patient was admitted in April 2018 for E. coli UTI as well as transient E. coli bacteremia treated with oral cephalosporin. Thereafter patient reports she was doing fairly okay up until 3-4 weeks prior to admission. Approximately 3-4 weeks prior to admission patient started noticing lower back pain that radiated to the left side and down her left lower extremity. She denies any fever chills or night sweats. She denies any bowel bladder incontinence. She denies any paresthesias or saddle anesthesia. She reports that at baseline she uses a walker since the year 2001 even before her total knee replacements. She reports that at baseline she is able to ambulate with a walker but most of the chores at home as well as cooking are done by her . Patient was seen by her primary care physician who performed an MRI of the spine as outpatient. Due to concern for osteomyelitis of the spine patient was referred to outpatient infectious disease Dr. Boothe who then recommended the patient be admitted to the hospital based on a phone conversation with her primary care physician. After admission patient has been evaluated by neurosurgery. Upon my discussion with neurosurgery it appears that there is no epidural abscess or drainable focus at this time. Due to concern for osteomyelitis of the spine and leukocytosis CT-guided lumbar spine biopsy would be recommended. Infectious diseases consulted for evaluation and management of spinal discitis/ osteomyelitis. Notes reviewed Back pain better controlled. No fever No rash No diarrhea Much more alert today. Appears closer to baseline. Conversing appropriately. Antibiotics: Cefepime IV Lines: Lines ok Past Medical History: reviewed Allergies/Adverse Reactions: Allergies doxycycline Allergy (Severe, Verified 10/03/18 20:08) Anaphylaxis sulfamethoxazole Allergy (Severe, Verified 10/03/18 20:08) Anaphylaxis trimethoprim Allergy (Severe, Verified 10/03/18 20:08) Anaphylaxis Objective Vital Signs 10/17/18 16:00 10/17/18 20:00 10/17/18 20:23 Temperature 92.9 F L 99.2 F Pulse Rate 84 85 Respiratory Rate 15 21 Blood Pressure 138/63 153/65 H Pulse Oximetry 94 L 99 98 10/18/18 00:00 10/18/18 01:36 10/18/18 03:08 Temperature 98.2 F Pulse Rate 79 87 Respiratory Rate 16 18 Blood Pressure 140/65 Pulse Oximetry 98 10/18/18 07:00 10/18/18 08:00 10/18/18 12:00 Temperature 99.0 F 98.2 F Pulse Rate 85 83 Respiratory Rate 12 20 20 Blood Pressure 149/64 H 145/61 H Pulse Oximetry 99 98 10/18/18 12:43 Temperature Pulse Rate 83 Respiratory Rate Blood Pressure Pulse Oximetry Intake & Output 10/17/18 10/18/18 10/18/18 18:59 06:59 18:59 Intake Total 100 / 100 65 / 65 1100 / 1100 Output Total 550 / 550 Balance 100 / 100 -485 / -485 1100 / 1100 Weight 115.48 kg Intake: IV 100 / 100 65 / 65 1100 / 1100 NS Inj 1,000 ML @ 42 mls/hr IV. 1000 / 1000 CONT .[id number] [facility] Rx#:[id number] Ofirmev Inj 650 mg In 65 ml @ 65 / 65 400 mls/hr IV.SIG Q6H PRN Rx#: [id number] Maxipime Inj 1,000 MG In NS Inj 100 / 100 100 / 100 100 ML @ 200 mls/hr IV.SIG Q24H [facility] Rx#:[id number] Output: Urine Amount (Catheter) 550 / 550 Indwelling Urethral Catheter 550 / 550 Other: Date of Last Bowel Movement 10/15/18 10/17/18 10/16/18 14:20 Cerebral Spinal Fluid - Lumbar Puncture Acid Fast Bacilli Smear - Final No acid fast bacilli seen 10/16/18 14:20 Cerebral Spinal Fluid - Lumbar Puncture Mycobacterial Culture - Pending 10/13/18 15:55 Blood - Peripheral Aerobic Blood Culture - Final No growth in 5 days 10/13/18 15:55 Blood - Peripheral Anaerobic Blood Culture - Final No growth in 5 days 10/13/18 15:50 Blood - Peripheral Aerobic Blood Culture - Final No growth in 5 days 10/13/18 15:50 Blood - Peripheral Anaerobic Blood Culture - Final No growth in 5 days 10/16/18 14:20 Lumbar Puncture Gram Stain - Final 10/16/18 14:20 Lumbar Puncture CSF Culture - Preliminary No growth in 48 hours 10/16/18 14:20 Cerebral Spinal Fluid - Lumbar Puncture Fungal Smear - Final No fungal elements seen 10/16/18 14:20 Cerebral Spinal Fluid - Lumbar Puncture Fungal Culture - Pending Lab - Chemistry Results 10/15/18 06:13 Thiamine 75 RBC Folate 242 L Imaging: ITS Impressions Needle Biopsy/Aspiration X-Ray 10/05/18 00:00 CONCLUSION: 1. Uncomplicated L3-L4 disc aspiration as above. Abdomen/Pelvis CT 10/05/18 10:07 CONCLUSION: 1. There are advanced degenerative changes throughout the lumbar spine. There is some cortical irregularity of the vertebral endplates across the L3/4 disc level. Presumably there is outside cross-sectional imaging through this area. There was concern for possible abscess in the iliopsoas muscle. There is some subtle decreased attenuation in the muscle on the left side just beneath the L3- 4 disc space but I do not see a definite defined drainable collection by noncontrast imaging. If possible, postcontrast imaging may be of benefit for more definitive assessment. 2. There are 2 low-attenuation lesions within the liver. These are too small to definitively characterize by noncontrast CT. 3. The patient is post splenectomy. Head CT 10/09/18 00:00 CONCLUSION: 1. Negative CT Head non contrast. 2. No evidence of acute infarct, hemorrhage, mass or edema. . Lumbar Spine MRI 10/09/18 00:00 CONCLUSION: 1. Changes consistent with discitis at L3-L4 without abscess. 2. Diffuse degenerative changes without central canal stenosis. Potential left L3 neural foraminal impingement. Details given above. Chest X-Ray 10/13/18 00:00 CONCLUSION: 1. Mild patchy bilateral lower lobe airspace disease which may reflect atelectasis. Lumbar Spine CT 10/13/18 00:00 CONCLUSION: 1. Discitis changes at L3/L4 again noted. The disc space narrowing and vertebral body endplate irregularity is mostly towards the left. No significant change from the prior MRI. No perceptible drainable fluid collection. Head MRI 10/15/18 07:09 CONCLUSION: 1. Negative MR Brain non contrast. Lumbar Puncture Fluoroscopy 10/16/18 10:42 CONCLUSION: 1. Uncomplicated fluoroscopically guided lumbar puncture. Physical Exam: GENERAL: Morbidly obese well-developed, not in acute distress SKIN: Cool and dry, no generalized rash HEAD: Atraumatic. Normocephalic. No temporal or scalp tenderness. EYES: Pupils equal round and reactive. Scleral icterus. No injection or drainage. No petechia ENT: Nothing abnormal detected NECK: Trachea midline. Supple, nontender, no meningeal signs. CARDIOVASCULAR: HS audible. RESPIRATORY: Clear to auscultation bilaterally. GASTROINTESTINAL: Abdomen soft nontender. MUSCULOSKELETAL: Extremities without clubbing, cyanosis. Total knee replacement site with no evidence of infection. NEUROLOGICAL: Alert oriented 3. Nonfocal. Psych cooperative IV line sites ok. Assessment and Plan - Plan Suspected L4-L5 discitis Prior history of lymphoma status post radiation therapy now in remission. Acute metabolic encephalopathy: sepsis, r/o meningoencephalitis. WBC elevation in CSF likely parameningeal focus of infection from discitis. Aspiration Pneumonia. Morbid obesity BMI 37.9 kg/m square Allergy to doxycycline and Bactrim reported as airway swelling. Chronic kidney disease age 2 Recs: DC Cefepime IV Start Ceftriaxone IV for discitis Biopsy Cultures prob will be negative - she got 2 doses IV vanco 10/04 and 10/05 , and 4 doses of IV Zosyn last dose given 09/24 Monitor progress Discussed with Jessica alba CM: if continues to do well will provide DC recs for rehab or bender.
--- NOTE | 2018-10-18 17:00 | P.PN ---
Subjective Interval history: Patient seen and examined, awake, alert oriented x3. Complains of low back pain and spasms. No fever. Off restraints. No nausea, no vomiting, no diarrhea. No fever. Physical Exam Vital signs: Vital Signs 10/17/18 20:00 10/17/18 20:23 10/18/18 00:00 Temperature 99.2 F Pulse Rate 85 79 Respiratory Rate 21 Blood Pressure 153/65 H Pulse Oximetry 99 98 10/18/18 01:36 10/18/18 03:08 10/18/18 07:00 Temperature 98.2 F Pulse Rate 87 Respiratory Rate 16 18 12 Blood Pressure 140/65 Pulse Oximetry 98 10/18/18 08:00 10/18/18 12:00 10/18/18 12:43 Temperature 99.0 F 98.2 F Pulse Rate 85 83 83 Respiratory Rate 20 20 Blood Pressure 149/64 H 145/61 H Pulse Oximetry 99 98 10/18/18 16:00 Temperature 97.5 F L Pulse Rate 100 H Respiratory Rate 20 Blood Pressure 136/61 Pulse Oximetry 97 Intake & Output 10/17/18 10/18/18 10/18/18 18:59 06:59 18:59 Intake Total 100 / 100 65 / 65 1100 / 1100 Output Total 550 / 550 Balance 100 / 100 -485 / -485 1100 / 1100 Weight 115.48 kg Intake: IV 100 / 100 65 / 65 1100 / 1100 NS Inj 1,000 ML @ 42 mls/hr IV. 1000 / 1000 CONT .[id number] [facility] Rx#:[id number] Ofirmev Inj 650 mg In 65 ml @ 65 / 65 400 mls/hr IV.SIG Q6H PRN Rx#: [id number] Maxipime Inj 1,000 MG In NS Inj 100 / 100 100 / 100 100 ML @ 200 mls/hr IV.SIG Q24H [facility] Rx#:[id number] Output: Urine Amount (Catheter) 550 / 550 Indwelling Urethral Catheter 550 / 550 Other: Date of Last Bowel Movement 10/15/18 10/17/18 Narrative: GENERAL: 62-year-old moderately obese female, no apparent distress. SKIN: Warm and dry. No generalized rash. HEENT: Atraumatic. Normocephalic. Pupils equal and round. No scleral icterus. No injection or drainage. No nasal bleeding or discharge. Mucous membranes pink and moist. NECK: Trachea midline. CARDIOVASCULAR: Regular rate and rhythm. No obvious murmur auscultated. RESPIRATORY: No accessory muscle use. Clear to auscultation. Breath sounds equal bilaterally. GASTROINTESTINAL: Abdomen soft, non-tender, nondistended. +BS. MUSCULOSKELETAL: Extremities without clubbing, cyanosis, or edema. No obvious deformities. NEUROLOGICAL: Awake and alert and oriented x3. No obvious cranial nerve deficits. Motor grossly within normal limits. Able to move all extremities spontaneously. Normal speech. PSYCHIATRIC: Cooperative, appropriate. - Urinary Catheter Management Indwelling Urethral Catheter Cath placed during this visit: yes Reason for continuing: Chronic Urinary Retention Insertion date: 10/13/18 Insertion time: 11:00 Straight Cath placed during this visit: no Results - Labs CBC & Chem 7: 10/21/18 07:45 10/22/18 06:20 Laboratory Results - last 24 hr 10/15/18 10/16/18 06:13 14:20 RBC Folate 242 L CSF Herpes I DNA (PCR) Negative CSF Herpes II DNA (PCR) Negative Microbiology 10/16/18 14:20 Cerebral Spinal Fluid - Lumbar Puncture Acid Fast Bacilli Smear - Final No acid fast bacilli seen 10/13/18 15:55 Blood - Peripheral Aerobic Blood Culture - Final No growth in 5 days 10/13/18 15:55 Blood - Peripheral Anaerobic Blood Culture - Final No growth in 5 days 10/13/18 15:50 Blood - Peripheral Aerobic Blood Culture - Final No growth in 5 days 10/13/18 15:50 Blood - Peripheral Anaerobic Blood Culture - Final No growth in 5 days 10/16/18 14:20 Lumbar Puncture Gram Stain - Final 10/16/18 14:20 Lumbar Puncture CSF Culture - Preliminary No growth in 48 hours Assessment and Plan - Plan 62-year-old female with a past medical history significant for hypertension, CKD and hypothyroidism presents to the emergency department for the evaluation of lower back pain. Altered mental status/acute encephalopathy, recurrent 10/09 AMS, Halicat called, CT of the head negative, no evidence of acute infarct hemorrhage or mass edema. [place] likely due to polypharmacy and hypoxia. Possibly toxic metabolic encephalopathy/delirium secondary to infection Fever, resolved, patient is afebrile Cdiff neg 10/12 UA neg for infection ABG +hypoxia with O2 sat 83% on RA, now satting 99% on 2L BCX show no growth x 1 day Lab reviewed, unremarkable except for leukocytosis which is trending down. CXR shows mild patchy bilateral lower lobe airspace dz likely atelectasis CT lumbar spine shows no significant change from prior study, no drainable fluid collection low normal B12, started on supplementation low normal thiamin, start on supplementation daily -Psychiatry following, appreciate assistance. Patient does not have capacity at this time. Continue on Zyprexa at night. -Neurology following, appreciate assistance. MRI of the brain ordered, negative per report. Risperdal added to help with sleep. -Dr. Green requested LP for evaluation of possible meningoencephalitis. LP done 10/16 - CSF 40, RBC 5717, Glc 51, TP 47.5, VDRL, HSV and Cx pending- so far negative -Neuro improved, oriented x 3. No restraints. C/O back pain and spasms, resume Flexeril and [place] 5 PRN. Monitor neuro status. Suspected L4-L5 discitis Patient had outpatient MRI done which showed possible osteomyelitis of L3/L4 ( disc in patient's chart) Patient with leukocytosis, elevated ESR/CRP -ID following, appreciate assistance. CT a/p neg for iliopsoas abscess. s/p CT guided bx with IR, cx with no growth. Changed to Ceftriaxone today -10/09/18 Repeat lumbar MRI of the spine showed changes consistent with discitis at L3-L4 without abscess. Diffuse degenerative changes without central canal stenosis. Potential left L3 neural foraminal impingement. 10/[address] ordered due to acute encephalopathy, no evidence of worsening fluid collection/abscess -Neurosurgery consulted, appreciate assistance. No surgical intervention at this time. Sepsis, secondary to PNA CXR showing questionable subtle small infiltrate in the medial right upper lobe. -on IV Ceftriaxone now -ID following as above Urinary retention patient pulled out gamboa last night Bladder scan reading 412, gamboa catheter placed and 1100cc urine drained -UA not suggestive of UTI -monitor I&Os -plan to d/c gamboa and voiding trial tomorrow Anemia, acute on chronic -s/p 1 unit PRBCs -no evidence of active bleeding, continue to monitor -repeat CBC shows stable H/H Hypertension BP improved -continue on Norvasc, Atenolol and Hydralazine -continue to monitor BP Hypothyroidism TSH level elevated but free T4 normal -patient has been refusing Synthroid intermittently -continue present dose of Synthroid -patient will need to have TSH rechecked as outpatient in 4-6 weeks Chronic kidney disease Creatinine near baseline for the patient -Avoid nephrotoxic agents -Monitor renal function as indicated Constipation, chronic -continue bowel regimen -monitor BM pattern Hx of lymphoma s/p radiation therapy, in remission -monitor Morbidly obese BMI 37.6 -patient would benefit from weight loss therapy, regular exercise program DVT prophylaxis -bilateral SCD/TRINITY padgette CM following, hopefully to CIR tomorrow if bed available. Code Status: Full code Discussed Condition With: RN, pt, CM, Dr. Green Discharge Planning: Poss CIR tomorrow
[2018-10-18] MEDS: Temazepam 15 MG Capsule PO SCH (22:14)
[2018-10-19 05:26] LABS: Calcium 9.3 mg/dL (8.5-10.1); Carbon Dioxide 24.9 meq/L (21.0-32.0); Potassium 3.6 meq/L (3.5-5.1)
[2018-10-19] MEDS: Levothyroxine 112 MCG Tablet PO SCH (05:28)
--- NOTE | 2018-10-19 06:45 | P.PNNEU ---
Subjective Active Medications: Active Medications Acetaminophen (Tylenol) 650 mg PO Q4H PRN PRN Reason: Temp > 100.4 Last Admin: 10/18/18 10:34 Dose: 650 mg Hydrocodone Bitart/Acetaminophen ([place] 5/325) 1 tab PO Q6H PRN PRN Reason: Pain 1-5 Last Admin: 10/18/18 14:33 Dose: 1 tab Hydrocodone Bitart/Acetaminophen (Arbon 10/325) 1 tab PO Q6H PRN PRN Reason: Pain 6-10 Amlodipine Besylate (Norvasc) 10 mg PO DAILY [facility] Last Admin: 10/18/18 08:30 Dose: 10 mg Atenolol (Tenormin) 75 mg PO DAILY [facility] Last Admin: 10/18/18 08:29 Dose: 75 mg Bisacodyl (Dulcolax Supp) 10 mg RECTAL DAILY PRN PRN Reason: SEVERE CONSITIPATION Calcitriol (Rocaltrol) 0.25 mcg PO DAILY [facility] Last Admin: 10/18/18 08:29 Dose: 0.25 mcg Clonidine HCl (Catapres) 0.1 mg PO Q6H PRN PRN Reason: SBP>180 OR DBP >95 Cyanocobalamin (Vitamin B12) 1,000 mcg PO DAILY [facility] Last Admin: 10/18/18 08:30 Dose: 1,000 mcg Cyclobenzaprine HCl (Flexeril) 10 mg PO BID [facility] Last Admin: 10/18/18 20:48 Dose: 10 mg Heparin Sodium (Porcine) (Heparin Inj) 5,000 units SQ Q12HR [facility] Last Admin: 10/18/18 20:49 Dose: 5,000 units Hydralazine HCl (Apresoline) 25 mg PO TID [facility] Last Admin: 10/18/18 17:02 Dose: 25 mg Ceftriaxone Sodium 2,000 mg/ (Sodium Chloride) 100 mls @ 200 mls/hr IV.SIG Q24H [facility] Last Infusion: 10/18/18 22:47 Dose: Infused Levothyroxine Sodium (Synthroid) 112 mcg PO DAILY@0600 [facility] Last Admin: 10/19/18 05:28 Dose: 112 mcg Levothyroxine Sodium (Synthroid) 25 mcg PO DAILY@0600 [facility] Last Admin: 10/19/18 05:28 Dose: 25 mcg Lidocaine HCl (Lidoderm 5% Patch.12 Hr) 1 patch T-DERMAL DAILY [facility] Last Admin: 10/18/18 08:36 Dose: 1 patch Miscellaneous (Pill Splitter) 1 each OTHER UNSCH PRN PRN Reason: PILL SPLITTING Morphine Sulfate (Morphine Inj) 2 mg IV.PUSH Q4H PRN PRN Reason: BREAKTHROUGH PAIN Last Admin: 10/06/18 15:15 Dose: 2 mg Ondansetron HCl (Zofran Inj) 4 mg IV.PUSH Q6H PRN PRN Reason: NAUSEA OR VOMITING Last Admin: 10/16/18 10:46 Dose: 4 mg Pantoprazole Sodium (Protonix) 20 mg PO BID [facility] Last Admin: 10/18/18 20:51 Dose: 20 mg Patch Removal (Remove Old Patch) 1 each T-DERMAL HS [facility] Last Admin: 10/18/18 20:59 Dose: 1 each Risperidone (Risperdal) 0.5 mg PO DAILY@2200 [facility] Last Admin: 10/18/18 22:14 Dose: 0.5 mg Risperidone (Risperdal) 0.5 mg PO DAILY@0000 PRN PRN Reason: SEE LABEL COMMENTS Senna/Docusate Sodium (Joyce-Colace) 1 tab PO BID [facility] Last Admin: 10/18/18 20:59 Dose: Not Given Sennosides (Senokot) 17.2 mg PO Q12H PRN PRN Reason: Moderate Constipation Last Admin: 10/06/18 10:15 Dose: 17.2 mg Sodium Chloride (Ns Flush) 2 ml IV.FLUSH BID [facility] Last Admin: 10/18/18 20:52 Dose: 2 ml Sodium Chloride (Ns Flush) 2 ml IV.FLUSH PRN PRN PRN Reason: FLUSH AFTER USING IV ACCESS Temazepam (Restoril) 15 mg PO DAILY@2200 [facility] Last Admin: 10/18/18 22:14 Dose: 15 mg Temazepam (Restoril) 15 mg PO DAILY@0000 PRN PRN Reason: SEE LABEL COMMENTS Thiamine HCl (Vitamin B1) 100 mg PO BID [facility] Last Admin: 10/18/18 20:51 Dose: 100 mg Allergies/Adverse Reactions: Allergies Allergy/AdvReac Type Severity Reaction Status Date / Time doxycycline Allergy Severe Anaphylaxis Verified 10/03/18 20:08 sulfamethoxazole Allergy Severe Anaphylaxis Verified 10/03/18 20:08 trimethoprim Allergy Severe Anaphylaxis Verified 10/03/18 20:08 Physical Exam Vital signs: Vital Signs 10/18/18 07:00 10/18/18 08:00 10/18/18 12:00 Temperature 99.0 F 98.2 F Pulse Rate 85 83 Respiratory Rate 12 20 20 Blood Pressure 149/64 H 145/61 H Pulse Oximetry 99 98 10/18/18 12:43 10/18/18 16:00 10/18/18 20:00 Temperature 97.5 F L 98 F Pulse Rate 83 100 H 88 Respiratory Rate 20 20 Blood Pressure 136/61 122/60 Pulse Oximetry 97 95 10/18/18 20:01 10/18/18 23:53 10/19/18 00:00 Temperature Pulse Rate 89 81 88 Respiratory Rate 20 Blood Pressure 132/56 L Pulse Oximetry 94 L 10/19/18 04:00 Temperature 98.3 F Pulse Rate 87 Respiratory Rate 20 Blood Pressure 137/61 Pulse Oximetry 95 Intake & Output 10/18/18 10/18/18 10/19/18 06:59 18:59 06:59 Intake Total 65 / 65 1340 / 1340 100 / 100 Output Total 550 / 550 1000 / 1000 Balance -485 / -485 1340 / 1340 -900 / -900 Weight 115.48 kg 261.6 g Intake: IV 65 / 65 1100 / 1100 100 / 100 NS Inj 1,000 ML @ 42 mls/hr IV. 1000 / 1000 CONT .[id number] [facility] Rx#:[id number] Ofirmev Inj 650 mg In 65 ml @ 65 / 65 400 mls/hr IV.SIG Q6H PRN Rx#: [id number] Maxipime Inj 1,000 MG In NS Inj 100 / 100 100 ML @ 200 mls/hr IV.SIG Q24H [facility] Rx#:[id number] Rocephin Inj 2,000 MG In NS Inj 100 / 100 100 ML @ 200 mls/hr IV.SIG Q24H [facility] Rx#:[id number] Oral 240 / 240 Output: Urine 1000 / 1000 Urine Amount (Catheter) 550 / 550 Indwelling Urethral Catheter 550 / 550 Other: Date of Last Bowel Movement 10/17/18 10/18/18 Narrative: awake [facility]mc not yr - Urinary Catheter Management Indwelling Urethral Catheter Cath placed during this visit: yes Reason for continuing: Chronic Urinary Retention Insertion date: 10/13/18 Insertion time: 11:00 Objective Laboratory Results - last 24 hr 10/16/18 10/19/18 14:20 04:40 Sodium 143 Potassium 3.6 Chloride 109 H Carbon Dioxide 24.9 Anion Gap 9 BUN 23 H Creatinine 1.64 H Estimated GFR 38 L Random Glucose 67 L Calcium 9.3 CSF Herpes I DNA (PCR) Negative CSF Herpes II DNA (PCR) Negative Microbiology 10/16/18 14:20 Acid Fast Bacilli Smear - Final Cerebral Spinal Fluid - Lumbar Puncture No acid fast bacilli seen 10/13/18 15:55 Aerobic Blood Culture - Final Blood - Peripheral No growth in 5 days Anaerobic Blood Culture - Final No growth in 5 days 10/13/18 15:50 Aerobic Blood Culture - Final Blood - Peripheral No growth in 5 days Anaerobic Blood Culture - Final No growth in 5 days 10/16/18 14:20 Gram Stain - Final Lumbar Puncture CSF Culture - Preliminary No growth in 48 hours Review/Management - Review/Management Plan: imp mri pend did not sleep at all last noc so change sleep regiment and monitor sleep - 10/16/18 did not sleep last noc and regiment not repeated at midnight i dw pharmacy will see how does tonight 10/18/18 slept 5 plus hours doing well neurowise needs to get oob 18 wbc csf could be from parameningeal source disc cx neg need to get her ambulating and oob scd 10/19/18 slept all noc csf cx neg oob ambulate stable neuro
[2018-10-19] MEDS: Calcitriol 0.25 MCG Capsule PO SCH (09:00)
[2018-10-19] MEDS: Heparin - SQ 10,000 UNITS/ML Vial SQ SCH ×2 (09:01→20:18)
[2018-10-19] MEDS: Lidocaine 5% Patch T-DERMAL SCH (09:01)
[2018-10-19] MEDS: Pantoprazole Sodium 20 MG DR Tablet PO SCH ×2 (09:01→20:18)
[2018-10-19] MEDS: amLODIPine 10 MG Tablet PO SCH (09:01)
[2018-10-19] MEDS: Senna/Docusate Sodium 8.6/50 MG Tablet PO SCH ×2 (09:01→20:18)
[2018-10-19] MEDS: Atenolol 50 MG Tablet PO SCH (09:01)
[2018-10-19] MEDS: hydrALAZINE 25 MG Tablet PO SCH ×3 (09:01→17:49)
[2018-10-19] MEDS: Sodium Chloride 0.9% 2 ML Flush BID IV.FLUSH SCH ×2 (09:02→20:19)
--- NOTE | 2018-10-19 11:02 | P.PN ---
Subjective Interval history: Patient seen and examined, awake, alert oriented x 2-3. Initially not sure of year. Slept well, no more confusion. Still with occ. back pain and spasms. Asking when she is going to rehab, looking forward to getting back to walking. No fever. No cp, no sob. No fever. N/V/D. Appetite poor, food doesn't taste well. Sister on the phone requesting information, d/w pt's permission. Physical Exam Vital signs: Vital Signs 10/18/18 12:00 10/18/18 12:43 10/18/18 16:00 Temperature 98.2 F 97.5 F L Pulse Rate 83 83 100 H Respiratory Rate 20 20 Blood Pressure 145/61 H 136/61 Pulse Oximetry 98 97 10/18/18 20:00 10/18/18 20:01 10/18/18 23:53 Temperature 98 F Pulse Rate 88 89 81 Respiratory Rate 20 Blood Pressure 122/60 Pulse Oximetry 95 10/19/18 00:00 10/19/18 04:00 Temperature 98.3 F Pulse Rate 88 87 Respiratory Rate 20 20 Blood Pressure 132/56 L 137/61 Pulse Oximetry 94 L 95 Intake & Output 10/18/18 10/19/18 10/19/18 18:59 06:59 18:59 Intake Total 1340 / 1340 100 / 100 Output Total 1000 / 1000 Balance 1340 / 1340 -900 / -900 Weight 261.6 g Intake: IV 1100 / 1100 100 / 100 NS Inj 1,000 ML @ 42 mls/hr IV. 1000 / 1000 CONT .[id number] [facility] Rx#:[id number] Maxipime Inj 1,000 MG In NS Inj 100 / 100 100 ML @ 200 mls/hr IV.SIG Q24H [facility] Rx#:[id number] Rocephin Inj 2,000 MG In NS Inj 100 / 100 100 ML @ 200 mls/hr IV.SIG Q24H [facility] Rx#:[id number] Oral 240 / 240 Output: Urine 1000 / 1000 Other: Date of Last Bowel Movement 10/18/18 10/18/18 Narrative: GENERAL: 62-year-old moderately obese female, no apparent distress. SKIN: Warm and dry. No generalized rash. HEENT: Atraumatic. Normocephalic. Pupils equal and round. No scleral icterus. No injection or drainage. No nasal bleeding or discharge. Mucous membranes pink and moist. NECK: Trachea midline. CARDIOVASCULAR: Regular rate and rhythm. No obvious murmur auscultated. RESPIRATORY: No accessory muscle use. Clear to auscultation. Breath sounds equal bilaterally. GASTROINTESTINAL: Abdomen soft, non-tender, nondistended. +BS. MUSCULOSKELETAL: Extremities without clubbing, cyanosis, or edema. No obvious deformities. NEUROLOGICAL: Awake and alert and oriented x2-3. No obvious cranial nerve deficits. Motor grossly within normal limits. Able to move all extremities spontaneously. Normal speech. PSYCHIATRIC: Cooperative, appropriate. - Urinary Catheter Management Indwelling Urethral Catheter Cath placed during this visit: yes Reason for continuing: Chronic Urinary Retention Insertion date: 10/13/18 Insertion time: 11:00 Straight Cath placed during this visit: no Results - Labs CBC & Chem 7: 10/21/18 07:45 10/22/18 06:20 Laboratory Results - last 24 hr 10/19/18 04:40 Sodium 143 Potassium 3.6 Chloride 109 H Carbon Dioxide 24.9 Anion Gap 9 BUN 23 H Creatinine 1.64 H Estimated GFR 38 L Random Glucose 67 L Calcium 9.3 Microbiology 10/16/18 14:20 Lumbar Puncture Gram Stain - Final 10/16/18 14:20 Lumbar Puncture CSF Culture - Final No growth in 72 hours 10/16/18 14:20 Cerebral Spinal Fluid - Lumbar Puncture Acid Fast Bacilli Smear - Final No acid fast bacilli seen 10/13/18 15:55 Blood - Peripheral Aerobic Blood Culture - Final No growth in 5 days 10/13/18 15:55 Blood - Peripheral Anaerobic Blood Culture - Final No growth in 5 days 10/13/18 15:50 Blood - Peripheral Aerobic Blood Culture - Final No growth in 5 days 10/13/18 15:50 Blood - Peripheral Anaerobic Blood Culture - Final No growth in 5 days Assessment and Plan - Plan 62-year-old female with a past medical history significant for hypertension, CKD and hypothyroidism presents to the emergency department for the evaluation of lower back pain. Altered mental status/acute encephalopathy, recurrent. Poss multifactorial- polypharmacy, hypoxia, infection. 10/09 AMS, Halicat called, CT of the head negative, no evidence of acute infarct hemorrhage or mass edema. [place] likely due to polypharmacy and hypoxia. Possibly toxic metabolic encephalopathy/delirium secondary to infection Cdiff neg 10/12 UA neg for infection ABG +hypoxia with O2 sat 83% on RA, now satting 99% on 2L BCX show no growth x 1 day Lab reviewed, unremarkable except for leukocytosis which is trending down. CXR shows mild patchy bilateral lower lobe airspace dz likely atelectasis CT lumbar spine shows no significant change from prior study, no drainable fluid collection low normal B12, started on supplementation low normal thiamin, start on supplementation daily -Psychiatry following, appreciate assistance. At that time, patient did not have capacity at this time. Continue on Zyprexa at night. Improved, oriented and appropriate. -Neurology following, appreciate assistance. MRI of the brain ordered, negative per report. Risperdal and Restoril added to help with sleep. Has improved. -Dr. Green requested LP for evaluation of possible meningoencephalitis. LP done 10/16 - CSF 40, RBC 5717, Glc 51, TP 47.5, VDRL pending, HSV negative and Cx pending- so far negative -Neuro improved, oriented x 2-3. -restarted on some pain management, Flexeril and [place] 5 PRN. Monitor neuro status. Suspected L4-L5 discitis Patient had outpatient MRI done which showed possible osteomyelitis of L3/L4 ( disc in patient's chart) Patient with leukocytosis, elevated ESR/CRP -ID following, appreciate assistance. CT a/p neg for iliopsoas abscess. s/p CT guided bx with IR, cx with no growth. Changed to Ceftriaxone per ID on 10/18 -10/09/18 Repeat lumbar MRI of the spine showed changes consistent with discitis at L3-L4 without abscess. Diffuse degenerative changes without central canal stenosis. Potential left L3 neural foraminal impingement. 10/[address] ordered due to acute encephalopathy, no evidence of worsening fluid collection/abscess -Neurosurgery consulted, appreciate assistance. No surgical intervention at this time. Sepsis, secondary to PNA CXR showing questionable subtle small infiltrate in the medial right upper lobe. -Changed to Ceftriaxone for discitis 10/18 -ID following as above Urinary retention patient pulled out gamboa last night Bladder scan reading 412, gamboa catheter placed and 1100cc urine drained -UA not suggestive of UTI -monitor I&Os -bladder training today, will monitor. Poss dc later today Anemia, acute on chronic -s/p 1 unit PRBCs -no evidence of active bleeding, continue to monitor -repeat CBC shows stable H/H Hypertension BP improved -continue on Norvasc, Atenolol and Hydralazine -continue to monitor BP Hypothyroidism TSH level elevated but free T4 normal -patient has been refusing Synthroid intermittently -continue present dose of Synthroid -patient will need to have TSH rechecked as outpatient in 4-6 weeks Chronic kidney disease Creatinine near baseline for the patient -Avoid nephrotoxic agents -Monitor renal function as indicated Constipation, chronic -continue bowel regimen -monitor BM pattern Hx of lymphoma s/p radiation therapy, in remission -monitor Morbidly obese BMI 37.6 -patient would benefit from weight loss therapy, regular exercise program DVT prophylaxis -bilateral SCD/TRINITY hose waiting for insurance auth. pt. [facility] will need ID recommendations for abx. CBC in am Code Status: Full code Discussed Condition With: RN, pt, CM, pt's sister Discharge Planning: to [facility], waiting for insurance auth.
--- NOTE | 2018-10-19 12:24 | P.DIET ---
Nutritional Evaluation Type of nutrition evaluation: initial [place] [facility] [place] Intake, recommend supplement) Subjective Subjective Comments: Eating ~ 25% Objective - Diagnosis Osteomyelitis - Objective % IBW: 173 (IBW = 150#) Body Weight Used for Calculations: IBW (68.2 kg) Energy Needs - Lower Range (kCal/kg): 25 Energy Needs - Upper Range (kCal/kg): 30 Lower Limit kCal/kg (kCals): 1,705 Upper Limit kCal/kg (kCals): 2,046 Lower Limit Protein Factor (Grams per Kg): 1.0 Upper Limit Protein Factor (Grams per Kg): 1.5 Lower Protein Needs (Protein): 68 Upper Protein Needs (Protein): 102 Fluid Factor (ml/kg): 30 Estimated Fluid Needs (ml): 2,046 Dietitian Reviewed in Medical Record: Current diet, Curent medications, Intake & Output, Labs, Medical history Diet Order: Renal, Cardiac, 2 gm Na Oral Diet Intake Amount: Poor <50% Objective Comments: Meds include synthroid Labs: BUN/creat 23/1.64, Est GFR 38 Assessment Assessment: Pt at high nutrition risk 2' to dx and poor po intake. Will send Ensure on trays ; each 8 oz serving provides 250 kcals and 9 gms protein. Will monitor supplement acceptance and po intake closely. Pt is obese and we will need to d/ c Ensure as soon as po intake improves. assisted goal would be weight loss. Recommendations: Ensure tid Please record % meal intake in Feeding Assessment RD following Dietitian to Monitor: Lab values, Supplement acceptance, Intake & Output, Diet tolerance, Weight change, PO Intake, Medical course
[2018-10-19] MEDS: Temazepam 15 MG Capsule PO SCH (22:00)
[2018-10-20] MEDS: Levothyroxine 112 MCG Tablet PO SCH (06:27)
[2018-10-20 07:37] LABS: Hematocrit 26.2 % (35.0-46.0); Hemoglobin 8.8 gm/dL (11.6-15.3); Mean Corpuscular HGB Conc 33.7 % (32.0-36.0); Mean Corpuscular Hemoglobin 32.2 pg (27.0-34.0); Mean Corpuscular Volume 95.4 fL (80.0-100.0); Mean Platelet Volume 12.6 fL (7.0-11.0); Platelet Count 246 th/mm3 (150-450); Red Blood Count 2.75 mil/mm3 (4.00-5.30); Red Cell Distribution Width 16.7 % (11.6-17.2); White Blood Count 15.2 th/mm3 (4.0-11.0)
[2018-10-20] MEDS: Sodium Chloride 0.9% 2 ML Flush BID IV.FLUSH SCH ×2 (09:00→22:09)
[2018-10-20] MEDS: Lidocaine 5% Patch T-DERMAL SCH (09:01)
[2018-10-20] MEDS: Heparin - SQ 10,000 UNITS/ML Vial SQ SCH ×2 (09:06→22:08)
[2018-10-20] MEDS: Pantoprazole Sodium 20 MG DR Tablet PO SCH ×2 (09:07→22:08)
[2018-10-20] MEDS: Senna/Docusate Sodium 8.6/50 MG Tablet PO SCH ×2 (09:08→22:08)
[2018-10-20] MEDS: hydrALAZINE 25 MG Tablet PO SCH ×3 (09:08→17:31)
[2018-10-20] MEDS: amLODIPine 10 MG Tablet PO SCH (09:08)
[2018-10-20] MEDS: Calcitriol 0.25 MCG Capsule PO SCH (09:08)
[2018-10-20] MEDS: Atenolol 50 MG Tablet PO SCH (09:08)
--- NOTE | 2018-10-20 10:23 | P.PN ---
Subjective Interval history: Patient seen and examined, awake, alert oriented x 2, not year. No confusion overnight. C/O low back pain. No cp, no sob, no n/v/d. Appetite fair. No acute changes overnight Physical Exam Vital signs: Vital Signs 10/19/18 12:00 10/19/18 16:00 10/19/18 20:00 Temperature 98.2 F 98.4 F 98.4 F Pulse Rate 87 85 88 Respiratory Rate 20 20 20 Blood Pressure 153/67 H 145/75 H 130/73 Pulse Oximetry 98 98 97 10/19/18 23:59 10/20/18 00:00 10/20/18 03:59 Temperature 97.7 F Pulse Rate 85 87 92 H Respiratory Rate 20 Blood Pressure 148/65 H Pulse Oximetry 95 10/20/18 04:00 10/20/18 08:00 Temperature 98 F 98.2 F Pulse Rate 95 H 91 H Respiratory Rate 20 20 Blood Pressure 139/69 164/72 H Pulse Oximetry 97 93 L Intake & Output 10/19/18 10/20/18 10/20/18 18:59 06:59 18:59 Intake Total 500 / 500 100 / 100 Output Total 1300 / 1300 850 / 850 Balance -800 / -800 -750 / -750 Weight 256.4 g Intake: IV 100 / 100 Rocephin Inj 2,000 MG In NS Inj 100 / 100 100 ML @ 200 mls/hr IV.SIG Q24H [facility] Rx#:[id number] Oral 500 / 500 Output: Urine 650 / 650 Urine Amount (Catheter) 650 / 650 850 / 850 Indwelling Urethral Catheter 650 / 650 850 / 850 Other: Date of Last Bowel Movement 10/18/18 10/18/18 # Bowel Movements 0 Narrative: GENERAL: 62-year-old moderately obese female, no apparent distress. SKIN: Warm and dry. No generalized rash. HEENT: Atraumatic. Normocephalic. Pupils equal and round. No scleral icterus. No injection or drainage. No nasal bleeding or discharge. Mucous membranes pink and moist. NECK: Trachea midline. CARDIOVASCULAR: Regular rate and rhythm. No obvious murmur auscultated. RESPIRATORY: No accessory muscle use. Clear to auscultation. Breath sounds equal bilaterally. GASTROINTESTINAL: Abdomen soft, non-tender, nondistended. +BS. MUSCULOSKELETAL: Extremities without clubbing, cyanosis, or edema. No obvious deformities. NEUROLOGICAL: Awake and alert and oriented x2-3. No obvious cranial nerve deficits. Motor grossly within normal limits. Able to move all extremities spontaneously. Normal speech. PSYCHIATRIC: Cooperative, appropriate. - Urinary Catheter Management Indwelling Urethral Catheter Cath placed during this visit: yes Reason for continuing: Chronic Urinary Retention Insertion date: 10/13/18 Insertion time: 11:00 Straight Cath placed during this visit: no Results - Labs CBC & Chem 7: 10/21/18 07:45 10/22/18 06:20 Laboratory Results - last 24 hr 10/16/18 10/20/18 14:20 06:33 WBC 15.2 H RBC 2.75 L Hgb 8.8 L Hct 26.2 L MCV 95.4 MCH 32.2 MCHC 33.7 RDW 16.7 Plt Count 246 MPV 12.6 H CSF VDRL Non-reactive Microbiology 10/05/18 14:48 Fluid - Other Fungal Smear - Final No fungal elements seen 10/05/18 14:48 Fluid - Other Fungal Culture - Preliminary No growth in 2 weeks 10/05/18 14:48 Fluid - Other Acid Fast Bacilli Smear - Final No acid fast bacilli seen 10/05/18 14:48 Fluid - Other Mycobacterial Culture - Preliminary No growth in 2 weeks 10/16/18 14:20 Lumbar Puncture Gram Stain - Final 10/16/18 14:20 Lumbar Puncture CSF Culture - Final No growth in 72 hours Assessment and Plan - Plan 62-year-old female with a past medical history significant for hypertension, CKD and hypothyroidism presents to the emergency department for the evaluation of lower back pain. Altered mental status/acute encephalopathy, recurrent. Poss multifactorial- polypharmacy, hypoxia, infection. 10/09 AMS, Halicat called, CT of the head negative, no evidence of acute infarct hemorrhage or mass edema. [place] likely due to polypharmacy and hypoxia. Possibly toxic metabolic encephalopathy/delirium secondary to infection Cdiff neg 10/12 UA neg for infection ABG +hypoxia with O2 sat 83% on RA, now satting 99% on 2L BCX show no growth x 1 day Lab reviewed, unremarkable except for leukocytosis which is trending down. CXR shows mild patchy bilateral lower lobe airspace dz likely atelectasis CT lumbar spine shows no significant change from prior study, no drainable fluid collection low normal B12, started on supplementation low normal thiamin, start on supplementation daily -Psychiatry following, appreciate assistance. At that time, patient did not have capacity at this time. Continue on Zyprexa at night. Improved, oriented and appropriate. -Neurology following, appreciate assistance. MRI of the brain ordered, negative per report. Risperdal and Restoril added to help with sleep. Has improved. -Dr. Green requested LP for evaluation of possible meningoencephalitis. LP done 10/16 - CSF 40, RBC 5717, Glc 51, TP 47.5, VDRL -, HSV negative and Cx pending- so far negative -Neuro improved, oriented x 2-3. -restarted on some pain management, Flexeril and [place] 5 PRN. Monitor neuro status. Suspected L4-L5 discitis Patient had outpatient MRI done which showed possible osteomyelitis of L3/L4 ( disc in patient's chart) Patient with leukocytosis, elevated ESR/CRP -ID following, appreciate assistance. CT a/p neg for iliopsoas abscess. s/p CT guided bx with IR, cx with no growth. Changed to Ceftriaxone per ID on 10/18 -10/09/18 Repeat lumbar MRI of the spine showed changes consistent with discitis at L3-L4 without abscess. Diffuse degenerative changes without central canal stenosis. Potential left L3 neural foraminal impingement. 10/[address] ordered due to acute encephalopathy, no evidence of worsening fluid collection/abscess -Neurosurgery consulted, appreciate assistance. No surgical intervention at this time. Sepsis, secondary to PNA CXR showing questionable subtle small infiltrate in the medial right upper lobe. -Changed to Ceftriaxone for discitis 10/18 -ID following as above -CBC reviewed, WBC 15.2, no fever. Continue to monitor Urinary retention patient pulled out gamboa last night Bladder scan reading 412, gamboa catheter placed and 1100cc urine drained -UA not suggestive of UTI -monitor I&Os -DC gamboa today, monitor for voiding Anemia, acute on chronic -s/p 1 unit PRBCs -no evidence of active bleeding, continue to monitor -repeat CBC shows stable H/H Hypertension BP improved -continue on Norvasc, Atenolol and Hydralazine -continue to monitor BP Hypothyroidism TSH level elevated but free T4 normal -patient has been refusing Synthroid intermittently -continue present dose of Synthroid -patient will need to have TSH rechecked as outpatient in 4-6 weeks Chronic kidney disease Creatinine near baseline for the patient -Avoid nephrotoxic agents -Monitor renal function as indicated Constipation, chronic -continue bowel regimen -monitor BM pattern Hx of lymphoma s/p radiation therapy, in remission -monitor Morbidly obese BMI 37.6 -patient would benefit from weight loss therapy, regular exercise program DVT prophylaxis -bilateral SCD/TRINITY hose Continue with PT, OOB with assist. waiting for insurance auth. pt. ready to discharge to [facility] CBC in am Code Status: Full code Discussed Condition With: RN, pt, CM Discharge Planning: to [facility], waiting for insurance auth.
[2018-10-20] MEDS: Temazepam 15 MG Capsule PO SCH (22:08)
[2018-10-21] MEDS: Levothyroxine 112 MCG Tablet PO SCH (06:24)
[2018-10-21] MEDS: Sodium Chloride 0.9% 2 ML Flush BID IV.FLUSH SCH ×2 (09:00→22:19)
[2018-10-21] MEDS: Lidocaine 5% Patch T-DERMAL SCH (09:08)
[2018-10-21] MEDS: hydrALAZINE 25 MG Tablet PO SCH ×3 (09:09→17:35)
[2018-10-21] MEDS: Atenolol 50 MG Tablet PO SCH (09:09)
[2018-10-21] MEDS: amLODIPine 10 MG Tablet PO SCH (09:09)
[2018-10-21] MEDS: Calcitriol 0.25 MCG Capsule PO SCH (09:09)
[2018-10-21] MEDS: Pantoprazole Sodium 20 MG DR Tablet PO SCH ×2 (09:10→22:18)
[2018-10-21] MEDS: Senna/Docusate Sodium 8.6/50 MG Tablet PO SCH ×2 (09:10→22:18)
[2018-10-21] MEDS: Heparin - SQ 10,000 UNITS/ML Vial SQ SCH ×2 (09:11→22:18)
[2018-10-21 10:43] LABS: Hemoglobin 9.3 gm/dL (11.6-15.3); Mean Corpuscular HGB Conc 33.4 % (32.0-36.0); Mean Corpuscular Hemoglobin 32.2 pg (27.0-34.0); Mean Corpuscular Volume 96.5 fL (80.0-100.0); Mean Platelet Volume 12.2 fL (7.0-11.0); Platelet Count 234 th/mm3 (150-450); Red Cell Distribution Width 16.7 % (11.6-17.2)
--- NOTE | 2018-10-21 13:50 | P.PN ---
Subjective Interval history: Patient seen and examined, awake, alert oriented x3. Patient with poor appetite , indicates that food is not appetizing, no nausea, no vomiting. Eating some yogurt and drinking fluids. Caputo catheter discontinued yesterday, urinary retention. Bladder scan done, 500 cc, was straight cathed. Today, bladder scan 40 cc. Does not have urge to void. Physical Exam Vital signs: Vital Signs 10/20/18 16:00 10/20/18 19:57 10/20/18 20:00 Temperature 99.0 F 98.5 F Pulse Rate 93 H 89 88 Respiratory Rate 14 20 Blood Pressure 149/69 H 154/67 H Pulse Oximetry 96 97 10/21/18 00:00 10/21/18 04:00 10/21/18 08:00 Temperature 98.0 F 98.1 F 98.3 F Pulse Rate 83 85 91 H Respiratory Rate 20 20 16 Blood Pressure 140/66 152/69 H 129/70 Pulse Oximetry 97 96 96 Intake & Output 10/20/18 10/21/18 10/21/18 18:59 06:59 18:59 Intake Total 100 / 100 Output Total 600 / 600 Balance -500 / -500 Weight 114.6 kg Intake: IV 100 / 100 Rocephin Inj 2,000 MG In NS Inj 100 / 100 100 ML @ 200 mls/hr IV.SIG Q24H [facility] Rx#:[id number] Output: Urine Amount (Catheter) 600 / 600 Straight 600 / 600 Other: Date of Last Bowel Movement 10/18/18 Narrative: GENERAL: 62-year-old moderately obese female, no apparent distress. SKIN: Warm and dry. No generalized rash. HEENT: Atraumatic. Normocephalic. Pupils equal and round. No scleral icterus. No injection or drainage. No nasal bleeding or discharge. Mucous membranes pink and moist. NECK: Trachea midline. CARDIOVASCULAR: Regular rate and rhythm. No obvious murmur auscultated. RESPIRATORY: No accessory muscle use. Clear to auscultation. Breath sounds equal bilaterally. GASTROINTESTINAL: Abdomen soft, non-tender, nondistended. +BS. MUSCULOSKELETAL: Extremities without clubbing, cyanosis, or edema. No obvious deformities. NEUROLOGICAL: Awake and alert and oriented x 3. No obvious cranial nerve deficits. Motor grossly within normal limits. Able to move all extremities, strength 3/5. spontaneously. Normal speech. PSYCHIATRIC: Cooperative, appropriate. - Urinary Catheter Management Indwelling Urethral Catheter Cath placed during this visit: yes Reason for continuing: Chronic Urinary Retention Insertion date: 10/13/18 Insertion time: 11:00 Straight Cath placed during this visit: no Results - Labs CBC & Chem 7: 10/21/18 07:45 10/19/18 04:40 Laboratory Results - last 24 hr 10/21/18 07:45 WBC 13.0 H RBC 2.90 L Hgb 9.3 L Hct 28.0 L MCV 96.5 MCH 32.2 MCHC 33.4 RDW 16.7 Plt Count 234 MPV 12.2 H Assessment and Plan - Plan 62-year-old female with a past medical history significant for hypertension, CKD and hypothyroidism presents to the emergency department for the evaluation of lower back pain. Altered mental status/acute encephalopathy, recurrent. Poss multifactorial- polypharmacy, hypoxia, infection. 10/09 AMS, Halicat called, CT of the head negative, no evidence of acute infarct hemorrhage or mass edema. [place] likely due to polypharmacy and hypoxia. Possibly toxic metabolic encephalopathy/delirium secondary to infection Cdiff neg 10/12 UA neg for infection ABG +hypoxia with O2 sat 83% on RA, now satting 99% on 2L BCX show no growth x 1 day Lab reviewed, unremarkable except for leukocytosis which is trending down. CXR shows mild patchy bilateral lower lobe airspace dz likely atelectasis CT lumbar spine shows no significant change from prior study, no drainable fluid collection low normal B12, started on supplementation low normal thiamin, start on supplementation daily -Psychiatry following, appreciate assistance. At that time, patient did not have capacity at this time. Continue on Zyprexa at night. Improved, oriented and appropriate. -Neurology following, appreciate assistance. MRI of the brain ordered, negative per report. Risperdal and Restoril added to help with sleep. Has improved. -Dr. Green requested LP for evaluation of possible meningoencephalitis. LP done 10/16 - CSF 40, RBC 5717, Glc 51, TP 47.5, VDRL -, HSV negative and Cx pending- so far negative -Neuro improved, oriented x 2-3. -restarted on some pain management, Flexeril and [place] 5 PRN. Monitor neuro status. Suspected L4-L5 discitis Patient had outpatient MRI done which showed possible osteomyelitis of L3/L4 ( disc in patient's chart) Patient with leukocytosis, elevated ESR/CRP -ID following, appreciate assistance. CT a/p neg for iliopsoas abscess. s/p CT guided bx with IR, cx with no growth. Continue on IV Cefepime per ID. -10/09/18 Repeat lumbar MRI of the spine showed changes consistent with discitis at L3-L4 without abscess. Diffuse degenerative changes without central canal stenosis. Potential left L3 neural foraminal impingement. 10/[address] ordered due to acute encephalopathy, no evidence of worsening fluid collection/abscess -Neurosurgery consulted, appreciate assistance. No surgical intervention at this time. Sepsis, secondary to PNA CXR showing questionable subtle small infiltrate in the medial right upper lobe. -Changed to Ceftriaxone for discitis 10/18 -ID following as above -CBC reviewed, WBC trending down, 13, no fever. Continue to monitor Urinary retention-recurrent. Caputo has been discontinued x 2 DC'd 10/20-Bladder scan 500 cc overnight, straight cathed -continue with bladder scanning and intermittent catherization for now -inc. PO fluid. Anemia, acute on chronic -s/p 1 unit PRBCs -no evidence of active bleeding, continue to monitor -repeat CBC shows stable H/H Hypertension BP improved -continue on Norvasc, Atenolol and Hydralazine -continue to monitor BP Hypothyroidism TSH level elevated but free T4 normal -patient has been refusing Synthroid intermittently -continue present dose of Synthroid -patient will need to have TSH rechecked as outpatient in 4-6 weeks Chronic kidney disease Creatinine near baseline for the patient -Avoid nephrotoxic agents -Monitor renal function as indicated Constipation, chronic -continue bowel regimen -monitor BM pattern Hx of lymphoma s/p radiation therapy, in remission -monitor Morbidly obese BMI 37.6 -patient would benefit from weight loss therapy, regular exercise program Anorexia pt. not eating, has no desire for food -nutrition consult, note reviewed -change to regular diet to allow pt. to choose own food, add Ensure TID -Add Megace 40 mg po daily DVT prophylaxis -bilateral SCD/TRINITY hose/heparin sq Continue with PT, OOB with assist. Labs reviewed, stable. waiting for insurance auth. pt. ready to discharge to [facility] Code Status: Full code Discussed Condition With: RN, pt, CM Discharge Planning: to [facility], waiting for insurance auth.
[2018-10-21] MEDS: Temazepam 15 MG Capsule PO SCH (22:18)
[2018-10-22] MEDS: Levothyroxine 112 MCG Tablet PO SCH (05:37)
[2018-10-22 08:22] LABS: Calcium 9.8 mg/dL (8.5-10.1); Carbon Dioxide 25.4 meq/L (21.0-32.0); Potassium 4.5 meq/L (3.5-5.1)
[2018-10-22] MEDS: hydrALAZINE 25 MG Tablet PO SCH ×3 (10:04→17:45)
[2018-10-22] MEDS: Atenolol 50 MG Tablet PO SCH (10:04)
[2018-10-22] MEDS: amLODIPine 10 MG Tablet PO SCH (10:05)
[2018-10-22] MEDS: Senna/Docusate Sodium 8.6/50 MG Tablet PO SCH ×2 (10:05→21:10)
[2018-10-22] MEDS: Sodium Chloride 0.9% 2 ML Flush BID IV.FLUSH SCH ×2 (10:05→21:09)
[2018-10-22] MEDS: Pantoprazole Sodium 20 MG DR Tablet PO SCH ×2 (10:05→21:08)
[2018-10-22] MEDS: Calcitriol 0.25 MCG Capsule PO SCH (10:05)
[2018-10-22] MEDS: Lidocaine 5% Patch T-DERMAL SCH (10:05)
[2018-10-22] MEDS: Heparin - SQ 10,000 UNITS/ML Vial SQ SCH ×2 (10:06→21:08)
--- NOTE | 2018-10-22 13:49 | P.PNID ---
Subjective Remarks: Ms. Ontiveros is a 62-year-old -[place] female with past medical history significant for lymphoma status post radiation therapy alone in 1973. Thereafter patient reports she has had a repeat PET scan a couple years back which is negative for any recurrence of lymphoma. Patient does follow-up with Dr. Thomson are hematology oncology physician for chronic anemia. Patient reports that she has received Neupogen in the past but more recently she has been unable to afford the co-pay and therefore stopped it. Patient also reports a history of chronic kidney disease stage III progressing to stage IV and she sees possibly Dr. Hai Salmon as outpatient. She reports she has not been on dialysis and does not have any AV fistula. Patient also reports that she has been diagnosed with possibly rheumatoid arthritis as well as osteoarthritis and has had chronic back pain for many years. Her medical records also reveal chronic obesity with its complications such as osteoarthritis needing bilateral total knee replacements. Upon review of medical records it appears that patient was admitted in April 2018 for E. coli UTI as well as transient E. coli bacteremia treated with oral cephalosporin. Thereafter patient reports she was doing fairly okay up until 3-4 weeks prior to admission. Approximately 3-4 weeks prior to admission patient started noticing lower back pain that radiated to the left side and down her left lower extremity. She denies any fever chills or night sweats. She denies any bowel bladder incontinence. She denies any paresthesias or saddle anesthesia. She reports that at baseline she uses a walker since the year 2001 even before her total knee replacements. She reports that at baseline she is able to ambulate with a walker but most of the chores at home as well as cooking are done by her . Patient was seen by her primary care physician who performed an MRI of the spine as outpatient. Due to concern for osteomyelitis of the spine patient was referred to outpatient infectious disease Dr. Boothe who then recommended the patient be admitted to the hospital based on a phone conversation with her primary care physician. After admission patient has been evaluated by neurosurgery. Upon my discussion with neurosurgery it appears that there is no epidural abscess or drainable focus at this time. Due to concern for osteomyelitis of the spine and leukocytosis CT-guided lumbar spine biopsy would be recommended. Infectious diseases consulted for evaluation and management of spinal discitis/ osteomyelitis. Notes reviewed Back pain better controlled. No fever No rash No diarrhea Much more alert today. Appears closer to baseline. Conversing appropriately. Antibiotics: Cefepime IV Lines: Lines ok Past Medical History: reviewed Allergies/Adverse Reactions: Allergies doxycycline Allergy (Severe, Verified 10/03/18 20:08) Anaphylaxis sulfamethoxazole Allergy (Severe, Verified 10/03/18 20:08) Anaphylaxis trimethoprim Allergy (Severe, Verified 10/03/18 20:08) Anaphylaxis Objective Vital Signs 10/21/18 16:00 10/21/18 20:00 10/22/18 00:00 Temperature 98.6 F 98.9 F 98.5 F Pulse Rate 87 88 90 Respiratory Rate 14 20 20 Blood Pressure 145/68 H 165/73 H 152/61 H Pulse Oximetry 97 95 94 L 10/22/18 00:05 10/22/18 04:00 10/22/18 04:04 Temperature 98.4 F Pulse Rate 87 91 H 89 Respiratory Rate 20 Blood Pressure 168/76 H Pulse Oximetry 95 10/22/18 08:00 10/22/18 12:00 Temperature 98 F 98.0 F Pulse Rate 86 86 Respiratory Rate 20 20 Blood Pressure 150/67 H 138/66 Pulse Oximetry 94 L 96 Intake & Output 10/21/18 10/22/18 10/22/18 18:59 06:59 18:59 Intake Total 100 / 100 Output Total 700 / 700 460 / 460 Balance -600 / -600 -460 / -460 Weight 114 kg Intake: IV 100 / 100 Rocephin Inj 2,000 MG In NS Inj 100 / 100 100 ML @ 200 mls/hr IV.SIG Q24H [facility]PLACED BY [facility] Rx#:[id number] Output: Urine 0 / 0 Urine Amount (Catheter) 700 / 700 460 / 460 Straight 700 / 700 460 / 460 Other: # Urine Diapers 0 Date of Last Bowel Movement 10/18/18 10/21/18 10/05/18 14:48 Fluid - Other Fungal Smear - Final No fungal elements seen 10/05/18 14:48 Fluid - Other Fungal Culture - Preliminary No growth in 2 weeks 10/05/18 14:48 Fluid - Other Acid Fast Bacilli Smear - Final No acid fast bacilli seen 10/05/18 14:48 Fluid - Other Mycobacterial Culture - Preliminary No growth in 2 weeks Lab - Hematology Results 10/21/18 07:45 WBC 13.0 H RBC 2.90 L Hgb 9.3 L Hct 28.0 L MCV 96.5 MCH 32.2 MCHC 33.4 RDW 16.7 Plt Count 234 MPV 12.2 H Lab - Chemistry Results 10/22/18 06:20 Sodium 142 Potassium 4.5 Chloride 107 Carbon Dioxide 25.4 Anion Gap 10 BUN 28 H Creatinine 1.62 H Estimated GFR 39 L Random Glucose 74 Calcium 9.8 Imaging: ITS Impressions Needle Biopsy/Aspiration X-Ray 10/05/18 00:00 CONCLUSION: 1. Uncomplicated L3-L4 disc aspiration as above. Abdomen/Pelvis CT 10/05/18 10:07 CONCLUSION: 1. There are advanced degenerative changes throughout the lumbar spine. There is some cortical irregularity of the vertebral endplates across the L3/4 disc level. Presumably there is outside cross-sectional imaging through this area. There was concern for possible abscess in the iliopsoas muscle. There is some subtle decreased attenuation in the muscle on the left side just beneath the L3- 4 disc space but I do not see a definite defined drainable collection by noncontrast imaging. If possible, postcontrast imaging may be of benefit for more definitive assessment. 2. There are 2 low-attenuation lesions within the liver. These are too small to definitively characterize by noncontrast CT. 3. The patient is post splenectomy. Head CT 10/09/18 00:00 CONCLUSION: 1. Negative CT Head non contrast. 2. No evidence of acute infarct, hemorrhage, mass or edema. . Lumbar Spine MRI 10/09/18 00:00 CONCLUSION: 1. Changes consistent with discitis at L3-L4 without abscess. 2. Diffuse degenerative changes without central canal stenosis. Potential left L3 neural foraminal impingement. Details given above. Chest X-Ray 10/13/18 00:00 CONCLUSION: 1. Mild patchy bilateral lower lobe airspace disease which may reflect atelectasis. Lumbar Spine CT 10/13/18 00:00 CONCLUSION: 1. Discitis changes at L3/L4 again noted. The disc space narrowing and vertebral body endplate irregularity is mostly towards the left. No significant change from the prior MRI. No perceptible drainable fluid collection. Head MRI 10/15/18 07:09 CONCLUSION: 1. Negative MR Brain non contrast. Lumbar Puncture Fluoroscopy 10/16/18 10:42 CONCLUSION: 1. Uncomplicated fluoroscopically guided lumbar puncture. Physical Exam: GENERAL: Morbidly obese well-developed, not in acute distress SKIN: Cool and dry, no generalized rash HEAD: Atraumatic. Normocephalic. No temporal or scalp tenderness. EYES: Pupils equal round and reactive. Scleral icterus. No injection or drainage. No petechia ENT: Nothing abnormal detected NECK: Trachea midline. Supple, nontender, no meningeal signs. CARDIOVASCULAR: HS audible. RESPIRATORY: Clear to auscultation bilaterally. GASTROINTESTINAL: Abdomen soft nontender. MUSCULOSKELETAL: Extremities without clubbing, cyanosis. Total knee replacement site with no evidence of infection. NEUROLOGICAL: Alert oriented 3. Nonfocal. Psych cooperative IV line sites ok. Assessment and Plan - Plan Suspected L4-L5 discitis Prior history of lymphoma status post radiation therapy now in remission. Acute metabolic encephalopathy: sepsis, r/o meningoencephalitis. WBC elevation in CSF likely parameningeal focus of infection from discitis. Aspiration Pneumonia. Morbid obesity BMI 37.9 kg/m square Allergy to doxycycline and Bactrim reported as airway swelling. Chronic kidney disease age 2 Recs: Continue Ceftriaxone IV for discitis Biopsy Cultures prob will be negative - she got 2 doses IV vanco 10/04 and 10/05 , and 4 doses of IV Zosyn last dose given 09/24 Monitor progress Discussed with Jessica Bhagat [employer]MICAL CE[employer] CHANGER: will put in DC orders for either [place] or Rehab. Patient needs follow up with as outpatient. Will sign off please call back if any change in clinical condition or questions.
--- NOTE | 2018-10-22 14:04 | P.DCO ---
Post Hospital Infusion Therapy - Infusion Therapy Location of Infusion Therapy: SNF Infusion Therapy Order ([facility]) Appointment Date: 10/22/18 - Patient Information Patient Weight: 114 kg - Diagnosis (1) Discitis of lumbar region Code(s): M46.46 - Discitis, unspecified, lumbar region - Administer Medication Ceftriaxone Dose: 2 grams IV Directions: q 24 hours Start Treatment: 10/22/18 Stop Treatment: 11/30/18 - Additional Information Venous Access: PICC Line Additional Instructions: [x] Peripheral flush and dressing changes per protocol [x] Implanted port and central portable track line marker: * Implanted port: 10 ml Normal Saline followed by 5 ml Heparin 100 units/ml Heparin flush after each use and monthly to maintain. [] May leave port accessed during therapy. [] May leave peripheral site accessed for duration of therapy. [x] If patient has SOB or respiratory distress, check oxygen saturation. If less than 90% or clinical signs of respiratory distress, administer oxygen at 2 L/min. via nasal cannula and notify physician. [x] Anaphylaxis/Reaction orders: * Stop infusion. * Keep IV line open with saline flush. * Notify physician. * Monitor vital signs every 15 minutes until symptoms resolve. * Check Oxygen saturation; Oxygen at 2 L/min. via nasal cannula if less than 90% or clinical signs of respiratory distress. * Administer diphenhydramine (Benadryl) 25 mg IV STAT, (unless patient has received as pre-med). May repeat once, if necessary. * Solu-Cortef 250 mg IVP over 30-60 seconds, use 100 mg vials for each dissolution. * Epinephrine (1mg/1 ml) 0.3 mg subcutaneously or IVP now with any signs of respiratory distress. * Check with physician for new additional pre-med orders if patient is re- challenged or re-treated. [x] May remove PICC line when treatment complete, after confirming with Physician. [x] If the patient is admitted to the hospital, the ED, or transferred via [facility] , complete transfer form including medication reconciliation order sheet. Weekly Labs: CBC w/diff, Creatinine, CRP, LFTs (Hepatic Function Test) Additional Information: Please draw weekly labs and fax to following numbers. Please call with abnormal lab values or change in clinical condition to following number. Dr.Reba Boothe office: Address: [address] [place] [address] - Case Management Consult Case Management Consult-IVF: Yes - Patient Information Allergies doxycycline Allergy (Severe, Verified 10/03/18 20:08) Anaphylaxis sulfamethoxazole Allergy (Severe, Verified 10/03/18 20:08) Anaphylaxis trimethoprim Allergy (Severe, Verified 10/03/18 20:08) Anaphylaxis
--- NOTE | 2018-10-22 16:05 | P.PN ---
Subjective Interval history: Follow up for discitis: pt. seen and examined, remains alert and oriented x 3. Remains with urinary retention, has no urge. Bladder scanned, approx. 400cc. Straight cath in progress. Poor appetite. No abd. pain, no n/v/d. Afebrile. Physical Exam Vital signs: Vital Signs 10/21/18 16:00 10/21/18 20:00 10/22/18 00:00 Temperature 98.6 F 98.9 F 98.5 F Pulse Rate 87 88 90 Respiratory Rate 14 20 20 Blood Pressure 145/68 H 165/73 H 152/61 H Pulse Oximetry 97 95 94 L 10/22/18 00:05 10/22/18 04:00 10/22/18 04:04 Temperature 98.4 F Pulse Rate 87 91 H 89 Respiratory Rate 20 Blood Pressure 168/76 H Pulse Oximetry 95 10/22/18 08:00 10/22/18 12:00 Temperature 98 F 98.0 F Pulse Rate 86 86 Respiratory Rate 20 20 Blood Pressure 150/67 H 138/66 Pulse Oximetry 94 L 96 Intake & Output 10/21/18 10/22/18 10/22/18 18:59 06:59 18:59 Intake Total 100 / 100 Output Total 700 / 700 460 / 460 Balance -600 / -600 -460 / -460 Weight 114 kg 114 kg Intake: IV 100 / 100 Rocephin Inj 2,000 MG In NS Inj 100 / 100 100 ML @ 200 mls/hr IV.SIG Q24H LINDA Rx#:[id number] Output: Urine 0 / 0 Urine Amount (Catheter) 700 / 700 460 / 460 Straight 700 / 700 460 / 460 Other: # Urine Diapers 0 Date of Last Bowel Movement 10/18/18 10/21/18 Narrative: GENERAL: 62-year-old moderately obese female, no apparent distress. SKIN: Warm and dry. No generalized rash. HEENT: Atraumatic. Normocephalic. Pupils equal and round. No scleral icterus. No injection or drainage. No nasal bleeding or discharge. Mucous membranes pink and moist. NECK: Trachea midline. CARDIOVASCULAR: Regular rate and rhythm. No obvious murmur auscultated. RESPIRATORY: No accessory muscle use. Clear to auscultation. Breath sounds equal bilaterally. GASTROINTESTINAL: Abdomen soft, non-tender, nondistended. +BS. MUSCULOSKELETAL: Extremities without clubbing, cyanosis, or edema. No obvious deformities. NEUROLOGICAL: Awake and alert and oriented x 3. No obvious cranial nerve deficits. Motor grossly within normal limits. Able to move all extremities, strength 3/5 BLE. Normal speech. PSYCHIATRIC: Cooperative, appropriate. - Urinary Catheter Management Indwelling Urethral Catheter Cath placed during this visit: yes Reason for continuing: Chronic Urinary Retention Insertion date: 10/13/18 Insertion time: 11:00 Straight Cath placed during this visit: no Results - Labs CBC & Chem 7: 10/21/18 07:45 10/22/18 06:20 Laboratory Results - last 24 hr 10/22/18 06:20 Sodium 142 Potassium 4.5 Chloride 107 Carbon Dioxide 25.4 Anion Gap 10 BUN 28 H Creatinine 1.62 H Estimated GFR 39 L Random Glucose 74 Calcium 9.8 Assessment and Plan - Assessment (1) Discitis of lumbar region Code(s): M46.46 - Discitis, unspecified, lumbar region Status: Acute - Plan 62-year-old female with a past medical history significant for hypertension, CKD and hypothyroidism presents to the emergency department for the evaluation of lower back pain. Altered mental status/acute encephalopathy, recurrent. Poss multifactorial- polypharmacy, hypoxia, infection. 10/09 AMS, Halicat called, CT of the head negative, no evidence of acute infarct hemorrhage or mass edema. Paxton likely due to polypharmacy and hypoxia. Possibly toxic metabolic encephalopathy/delirium secondary to infection Cdiff neg 10/12 UA neg for infection ABG +hypoxia with O2 sat 83% on RA, now satting 99% on 2L BCX show no growth x 1 day Lab reviewed, unremarkable except for leukocytosis which is trending down. CXR shows mild patchy bilateral lower lobe airspace dz likely atelectasis CT lumbar spine shows no significant change from prior study, no drainable fluid collection low normal B12, started on supplementation low normal thiamin, start on supplementation daily -Psychiatry following, appreciate assistance. At that time, patient did not have capacity at this time. Continue on Zyprexa at night. Improved, oriented and appropriate. -Neurology following, appreciate assistance. MRI of the brain ordered, negative per report. Risperdal and Restoril added to help with sleep. Has improved. -Dr. Green requested LP for evaluation of possible meningoencephalitis. LP done 10/16 - CSF 40, RBC 5717, Glc 51, TP 47.5, VDRL -, HSV negative and Cx pending- so far negative -Neuro improved, oriented x 2-3. -restarted on some pain management, Flexeril and Dobson 5 PRN. Monitor neuro status. Suspected L4-L5 discitis Patient had outpatient MRI done which showed possible osteomyelitis of L3/L4 ( disc in patient's chart) Patient with leukocytosis, elevated ESR/CRP -ID following, appreciate assistance. CT a/p neg for iliopsoas abscess. s/p CT guided bx with IR, cx with no growth. Changed to Ceftriaxone on 10/18. -10/09/18 Repeat lumbar MRI of the spine showed changes consistent with discitis at L3-L4 without abscess. Diffuse degenerative changes without central canal stenosis. Potential left L3 neural foraminal impingement. 10/[address] ordered due to acute encephalopathy, no evidence of worsening fluid collection/abscess -Neurosurgery consulted, appreciate assistance. No surgical intervention at this time. -D/W ID, will need PICC, continue Rocephin, will need for 8 weeks (until 2018) Sepsis, secondary to PNA CXR showing questionable subtle small infiltrate in the medial right upper lobe. -Changed to Ceftriaxone for discitis 10/18 -ID following as above -CBC reviewed, WBC trending down, 13, no fever. Continue to monitor Urinary retention-recurrent. Caputo has been discontinued x 2 -continue with bladder scanning and intermittent catherization for now -add Bethanecol 10 mg po TID Anemia, acute on chronic -s/p 1 unit PRBCs -no evidence of active bleeding, continue to monitor -repeat CBC shows stable H/H Hypertension BP improved -continue on Norvasc, Atenolol and Hydralazine -continue to monitor BP Hypothyroidism TSH level elevated but free T4 normal -patient has been refusing Synthroid intermittently -continue present dose of Synthroid -patient will need to have TSH rechecked as outpatient in 4-6 weeks Chronic kidney disease III Creatinine near baseline for the patient -Avoid nephrotoxic agents -Monitor renal function as indicated -consult nephrology to clear for mid line PICC vs. permacath Constipation, chronic -continue bowel regimen -monitor BM pattern Hx of lymphoma s/p radiation therapy, in remission -monitor Morbidly obese BMI 37.6 -patient would benefit from weight loss therapy, regular exercise program Anorexia pt. not eating, has no desire for food -nutrition consult, note reviewed -change to regular diet to allow pt. to choose own food, Ensure TID -Continue Megace 40 mg po daily DVT prophylaxis -bilateral SCD/TRINITY hose/heparin sq Continue with PT, OOB with assist. Pt. ready for dc CIR declined, can go to SNF when be arranged Code Status: Full code Discussed Condition With: RN, pt, CM Discharge Planning: Insurance denied CIR, she needs SNF. [id number] signed. Bed pending
[2018-10-22] MEDS: Temazepam 15 MG Capsule PO SCH (21:08)
[2018-10-23] MEDS: Levothyroxine 112 MCG Tablet PO SCH (06:16)
[2018-10-23] MEDS: Pantoprazole Sodium 20 MG DR Tablet PO SCH ×2 (09:01→21:50)
[2018-10-23] MEDS: amLODIPine 10 MG Tablet PO SCH (09:01)
[2018-10-23] MEDS: hydrALAZINE 25 MG Tablet PO SCH ×3 (09:01→18:23)
[2018-10-23] MEDS: Atenolol 50 MG Tablet PO SCH (09:01)
[2018-10-23] MEDS: Senna/Docusate Sodium 8.6/50 MG Tablet PO SCH ×2 (09:01→21:50)
[2018-10-23] MEDS: Lidocaine 5% Patch T-DERMAL SCH (09:02)
[2018-10-23] MEDS: Sodium Chloride 0.9% 2 ML Flush BID IV.FLUSH SCH ×2 (09:02→21:48)
[2018-10-23] MEDS: Heparin - SQ 10,000 UNITS/ML Vial SQ SCH ×2 (09:02→21:49)
[2018-10-23] MEDS: Calcitriol 0.25 MCG Capsule PO SCH (09:03)
--- NOTE | 2018-10-23 09:35 | P.CONNP ---
<Chary Hidalgo - Last Filed: 10/23/18 10:18> History of Present Illness Consult date: 10/23/18 Primary Care Provider: Nancy Chou MD Chief Complaint: back pain History of Present Illness: Patient is a 62 year old female who came to the hospital on for evaluation of back pain and admitted for osteomyelitis. Patient had am MRI done 10/09/18 which showed discitis at L3-L4. Patient is currently on Ceftriaxone. Patient has a medical history of Chronic Kidney Disease Stage III, Hypertension , Hyperlipidemia, Hypothyroidism. Patient also has a prior history of lymphoma status post radiation, currently in remission. Patient is a former tobacco smoker. Patient denies illicit drug use. Patient is an office patient of Dr. Soto. Patient's renal function is currently at baseline. eGFR is 33 and Creatinine is 1.89. Patient had complaints of back pain, 08/29, she stated pain starts on her right side an radiates to her back. Patient stated moving makes the pain worse. Patient also had complaints of not being able to urinate. Patient had a gamboa cath removed 10/21 and patient stated she has had urinary retention since then. Per the nurse, she gets a bladder scan every 6 hours and straight catheterization. Patient was started on Flomax this morning and is also on Urecholine. Review of Systems All other systems reviewed negative except as stated in HPI PMFSH - History History Provided By: Patient - Medical History Medical History: Medical History (Last Reviewed 10/23/18 @ 08:38 by Erum Lima) Delirium Hypothyroidism CKD (chronic kidney disease) Hyperlipemia Hypertension - Surgical History Surgical History: Surgical History (Last Reviewed 10/23/18 @ 08:38 by Erum Lima) History of cholecystectomy History of knee replacement, total Hx of splenectomy Hx of thyroidectomy - Family History Family History: Family History (Last Reviewed 10/22/18 @ 09:03 by Elsi Khan) Other Coronary artery disease - Tobacco History Second Hand Smoke Exposure: No Tobacco Use In Past 30 Days: No Smoking Status: Former smoker Tobacco Type: Cigarettes - Alcohol History How Often Do You Have a Drink Containing Alcohol: Monthly or less - Substance Use History Substance History: No History of Abuse - Travel History Recent Travel in the [place] Within the Last 8 Weeks: No Recent Travel Out of the Country Within the Last 8 Weeks: No - Immunization History Tetanus Immunization: Unable to Assess Hx Influenza Vaccine This Season: No Medications and Allergies Allergies Allergy/AdvReac Type Severity Reaction Status Date / Time doxycycline Allergy Severe Anaphylaxis Verified 10/03/18 20:08 sulfamethoxazole Allergy Severe Anaphylaxis Verified 10/03/18 20:08 trimethoprim Allergy Severe Anaphylaxis Verified 10/03/18 20:08 Home Medications Medication Instructions Recorded Confirmed Type allopurinol 100 mg PO DAILY 07/05/18 10/03/18 History amlodipine 10 mg PO DAILY 07/05/18 10/03/18 History atenolol 50 mg PO DAILY 07/05/18 10/03/18 History calcitriol 0.25 mcg PO DAILY 07/05/18 10/03/18 History cyclobenzaprine 10 mg PO BID 07/05/18 10/03/18 History furosemide [Lasix] 20 mg PO DAILY 07/05/18 10/03/18 History hydrocodone-acetaminophen 1 tab PO Q4H PRN 07/05/18 10/03/18 History levothyroxine 137 mcg PO DAILY 07/05/18 10/03/18 History omeprazole 20 mg PO BID 07/05/18 10/03/18 History pregabalin [Lyrica] 75 mg PO BID 07/05/18 10/03/18 History zolpidem 10 mg PO HS 07/05/18 10/03/18 History Active Medications: Active Medications Acetaminophen (Tylenol) 650 mg PO Q4H PRN PRN Reason: Temp > 100.4 Last Admin: 10/18/18 10:34 Dose: 650 mg Hydrocodone Bitart/Acetaminophen (Rosalie 5/325) 1 tab PO Q6H PRN PRN Reason: Pain 1-5 Last Admin: 10/22/18 21:44 Dose: 1 tab Hydrocodone Bitart/Acetaminophen (Rosalie 10/325) 1 tab PO Q6H PRN PRN Reason: Pain 6-10 Amlodipine Besylate (Norvasc) 10 mg PO DAILY [facility] Last Admin: 10/23/18 09:01 Dose: 10 mg Atenolol (Tenormin) 75 mg PO DAILY [facility] Last Admin: 10/23/18 09:01 Dose: 75 mg Bethanechol Chloride (Urecholine) 10 mg PO TID [facility] Last Admin: 10/23/18 09:04 Dose: 10 mg Bisacodyl (Dulcolax Supp) 10 mg RECTAL DAILY PRN PRN Reason: SEVERE CONSITIPATION Calcitriol (Rocaltrol) 0.25 mcg PO DAILY [facility] Last Admin: 10/23/18 09:03 Dose: 0.25 mcg Clonidine HCl (Catapres) 0.1 mg PO Q6H PRN PRN Reason: SBP>180 OR DBP >95 Cyanocobalamin (Vitamin B12) 1,000 mcg PO DAILY [facility] Last Admin: 10/23/18 09:01 Dose: 1,000 mcg Cyclobenzaprine HCl (Flexeril) 10 mg PO BID [facility] Last Admin: 10/23/18 09:01 Dose: 10 mg Heparin Sodium (Porcine) (Heparin Inj) 5,000 units SQ Q12HR [facility] Last Admin: 10/23/18 09:02 Dose: 5,000 units Hydralazine HCl (Apresoline) 25 mg PO TID [facility] Last Admin: 10/23/18 09:01 Dose: 25 mg Ceftriaxone Sodium 2,000 mg/ (Sodium Chloride) 100 mls @ 200 mls/hr IV.SIG Q24H [facility] Last Infusion: 10/22/18 22:32 Dose: Infused Levothyroxine Sodium (Synthroid) 112 mcg PO DAILY@0600 [facility] Last Admin: 10/23/18 06:16 Dose: 112 mcg Levothyroxine Sodium (Synthroid) 25 mcg PO DAILY@0600 [facility] Last Admin: 10/23/18 06:16 Dose: 25 mcg Lidocaine HCl (Lidoderm 5% Patch.12 Hr) 1 patch T-DERMAL DAILY [facility] Last Admin: 10/23/18 09:02 Dose: 1 patch Megestrol Acetate (Megace) 40 mg PO DAILY [facility] Last Admin: 10/23/18 09:01 Dose: 40 mg Miscellaneous (Pill Splitter) 1 each OTHER UNSCH PRN PRN Reason: PILL SPLITTING Ondansetron HCl (Zofran Inj) 4 mg IV.PUSH Q6H PRN PRN Reason: NAUSEA OR VOMITING Last Admin: 10/16/18 10:46 Dose: 4 mg Pantoprazole Sodium (Protonix) 20 mg PO BID [facility] Last Admin: 10/23/18 09:01 Dose: 20 mg Patch Removal (Remove Old Patch) 1 each T-DERMAL HS [facility] Last Admin: 10/22/18 21:09 Dose: 1 each Risperidone (Risperdal) 0.5 mg PO DAILY@2200 [facility] Last Admin: 10/22/18 21:09 Dose: 0.5 mg Risperidone (Risperdal) 0.5 mg PO DAILY@0000 PRN PRN Reason: SEE LABEL COMMENTS Senna/Docusate Sodium (Joyce-Colace) 1 tab PO BID [facility] Last Admin: 10/23/18 09:01 Dose: 1 tab Sennosides (Senokot) 17.2 mg PO Q12H PRN PRN Reason: Moderate Constipation Last Admin: 10/06/18 10:15 Dose: 17.2 mg Sodium Chloride (Ns Flush) 2 ml IV.FLUSH BID [facility] Last Admin: 10/23/18 09:02 Dose: 2 ml Sodium Chloride (Ns Flush) 2 ml IV.FLUSH PRN PRN PRN Reason: FLUSH AFTER USING IV ACCESS Tamsulosin HCl (Flomax) 0.4 mg PO DAILY [facility] Last Admin: 10/23/18 09:12 Dose: 0.4 mg Temazepam (Restoril) 15 mg PO DAILY@2200 [facility] Last Admin: 10/22/18 21:08 Dose: 15 mg Temazepam (Restoril) 15 mg PO DAILY@0000 PRN PRN Reason: SEE LABEL COMMENTS Thiamine HCl (Vitamin B1) 100 mg PO BID [facility] Last Admin: 10/23/18 09:01 Dose: 100 mg Exam Vital signs: Vital Signs 10/22/18 12:00 10/22/18 16:00 10/22/18 20:00 Temperature 98.0 F 97.7 F 97.8 F Pulse Rate 82 91 H 85 Respiratory Rate 20 20 20 Blood Pressure 138/66 117/56 L 142/65 H Pulse Oximetry 96 97 98 10/22/18 22:19 10/23/18 00:00 10/23/18 03:49 Temperature 98.3 F Pulse Rate 77 Respiratory Rate 16 20 16 Blood Pressure 117/54 L Pulse Oximetry 93 L 10/23/18 04:00 10/23/18 07:05 Temperature 98.2 F 98.1 F Pulse Rate 89 89 Respiratory Rate 18 20 Blood Pressure 139/65 162/69 H Pulse Oximetry 98 94 L Intake & Output 10/22/18 10/23/18 10/23/18 18:59 06:59 18:59 Intake Total 100 / 100 Output Total 461 / 461 500 / 500 Balance -461 / -461 -400 / -400 Weight 114 kg 114.3 kg Intake: IV 100 / 100 Rocephin Inj 2,000 MG In NS Inj 100 / 100 100 ML @ 200 mls/hr IV.SIG Q24H [facility] Rx#:[id number] Output: Stool / Urine Amount (Catheter) 460 / 460 500 / 500 Straight 460 / 460 500 / 500 Other: Date of Last Bowel Movement 10/22/18 10/22/18 - Constitutional no acute distress, obese - Routine HEENT Exam Head: Present: normocephalic Eye: Present: EOMI, PERRL ENT: Present: mucous membranes dry - Routine Neck Exam Present: trachea midline. Absent: JVD, tracheal deviation - Routine Respiratory Exam Present: CTA bilaterally. Absent: accessory muscle use, respiratory distress - Routine Cardiovascular Exam Present: RRR. Absent: murmur - Routine Abdominal Exam Present: soft. Absent: tenderness - Routine Extremities Exam Present: cyanosis, edema, pulses intact, vascular access. Absent: clubbing, full ROM Comments: Patient had bilateral foot edema, non-pitting. Peripheral IV access left arm. Lower extremity weakness, bilaterally. - Routine Skin Exam Present: intact - Routine Neurological Exam Present: alert, oriented X3 Results - Lab Results 10/21/18 07:45 10/22/18 06:20 Most recent lab results ABG pH 7.43 (7.380-7.420) H 10/13/18 14:50 ABG pCO2 39 mmHg (38-42) 10/13/18 14:50 ABG pO2 53 mmHg (61-120) L* 10/13/18 14:50 ABG HCO3 25 mmol/L (22-26) 10/13/18 14:50 Calcium 9.8 mg/dL (8.5-10.1) 10/22/18 06:20 Assessment and Plan - Assessment (1) Chronic kidney disease (CKD) Code(s): N18.9 - Chronic kidney disease, unspecified Status: Acute Plan: Patient's renal function is currently at baseline. Creatinine is 1.89 and eGFR is 33. Avoid PICC line. Midline or tunnelled Conklin if needed. Avoid nephrotoxic agents. (2) Osteomyelitis Code(s): M86.9 - Osteomyelitis, unspecified Status: Acute Plan: MRI done 10/09/18 which showed discitis at L3-L4. Patient is currently on Ceftriaxone. ID is following. (3) Hypertension Code(s): I10 - Essential (primary) hypertension Status: Acute Plan: Monitor BP. Patient on Hydralazine, Atenolol, Amlodipine, and Clonidine (prn). (4) Hypothyroidism Code(s): E03.9 - Hypothyroidism, unspecified Status: Acute Plan: Patient is on Synthroid. (5) Anemia Code(s): D64.9 - Anemia, unspecified Status: Acute Plan: 1 unit PRBC transfusion on 10/09/18. Hgb 10/21/18 was 9.3. Could be anemia of chronic kidney disease. On note review, gets Procrit. <Jared Huynh - Last Filed: 10/23/18 21:44> History of Present Illness Primary Care Provider: Nancy Chou MD [facility] - Medical History Medical History: Medical History (Last Reviewed 10/23/18 @ 08:38 by Erum Lima) Delirium Hypothyroidism CKD (chronic kidney disease) Hyperlipemia Hypertension - Surgical History Surgical History: Surgical History (Last Reviewed 10/23/18 @ 08:38 by Erum Lima) History of cholecystectomy History of knee replacement, total Hx of splenectomy Hx of thyroidectomy - Family History Family History: Family History (Last Reviewed 10/22/18 @ 09:03 by Elsi Khan) Other Coronary artery disease Medications and Allergies Active Medications: Active Medications Acetaminophen (Tylenol) 650 mg PO Q4H PRN PRN Reason: Temp > 100.4 Last Admin: 10/18/18 10:34 Dose: 650 mg Hydrocodone Bitart/Acetaminophen (Rosalie 5/325) 1 tab PO Q6H PRN PRN Reason: Pain 1-5 Last Admin: 10/23/18 09:56 Dose: 1 tab Hydrocodone Bitart/Acetaminophen (Rosalie 10/325) 1 tab PO Q6H PRN PRN Reason: Pain 6-10 Amlodipine Besylate (Norvasc) 10 mg PO DAILY [facility] Last Admin: 10/23/18 09:01 Dose: 10 mg Atenolol (Tenormin) 75 mg PO DAILY [facility] Last Admin: 10/23/18 09:01 Dose: 75 mg Baclofen (Lioresal) 5 mg PO Q8HR [facility] Bethanechol Chloride (Urecholine) 10 mg PO TID [facility] Last Admin: 10/23/18 18:24 Dose: 10 mg Bisacodyl (Dulcolax Supp) 10 mg RECTAL DAILY PRN PRN Reason: SEVERE CONSITIPATION Calcitriol (Rocaltrol) 0.25 mcg PO DAILY [facility] Last Admin: 10/23/18 09:03 Dose: 0.25 mcg Clonidine HCl (Catapres) 0.1 mg PO Q6H PRN PRN Reason: SBP>180 OR DBP >95 Cyanocobalamin (Vitamin B12) 1,000 mcg PO DAILY [facility] Last Admin: 10/23/18 09:01 Dose: 1,000 mcg Heparin Sodium (Porcine) (Heparin Inj) 5,000 units SQ Q12HR [facility] Last Admin: 10/23/18 09:02 Dose: 5,000 units Hydralazine HCl (Apresoline) 25 mg PO TID [facility] Last Admin: 10/23/18 18:23 Dose: 25 mg Ceftriaxone Sodium 2,000 mg/ (Sodium Chloride) 100 mls @ 200 mls/hr IV.SIG Q24H [facility] Last Infusion: 10/22/18 22:32 Dose: Infused Levothyroxine Sodium (Synthroid) 112 mcg PO DAILY@0600 [facility] Last Admin: 10/23/18 06:16 Dose: 112 mcg Levothyroxine Sodium (Synthroid) 25 mcg PO DAILY@0600 [facility] Last Admin: 10/23/18 06:16 Dose: 25 mcg Lidocaine HCl (Lidoderm 5% Patch.12 Hr) 1 patch T-DERMAL DAILY [facility] Last Admin: 10/23/18 09:02 Dose: 1 patch Megestrol Acetate (Megace) 40 mg PO DAILY [facility] Last Admin: 10/23/18 09:01 Dose: 40 mg Miscellaneous (Pill Splitter) 1 each OTHER UNSCH PRN PRN Reason: PILL SPLITTING Ondansetron HCl (Zofran Inj) 4 mg IV.PUSH Q6H PRN PRN Reason: NAUSEA OR VOMITING Last Admin: 10/16/18 10:46 Dose: 4 mg Pantoprazole Sodium (Protonix) 20 mg PO BID [facility] Last Admin: 10/23/18 09:01 Dose: 20 mg Patch Removal (Remove Old Patch) 1 each T-DERMAL HS [facility] Last Admin: 10/22/18 21:09 Dose: 1 each Risperidone (Risperdal) 0.5 mg PO DAILY@2200 [facility] Last Admin: 10/22/18 21:09 Dose: 0.5 mg Risperidone (Risperdal) 0.5 mg PO DAILY@0000 PRN PRN Reason: SEE LABEL COMMENTS Senna/Docusate Sodium (Joyce-Colace) 1 tab PO BID [facility] Last Admin: 10/23/18 09:01 Dose: 1 tab Sennosides (Senokot) 17.2 mg PO Q12H PRN PRN Reason: Moderate Constipation Last Admin: 10/06/18 10:15 Dose: 17.2 mg Sodium Chloride (Ns Flush) 2 ml IV.FLUSH BID [facility] Last Admin: 10/23/18 09:02 Dose: 2 ml Sodium Chloride (Ns Flush) 2 ml IV.FLUSH PRN PRN PRN Reason: FLUSH AFTER USING IV ACCESS Tamsulosin HCl (Flomax) 0.4 mg PO DAILY [facility] Last Admin: 10/23/18 09:12 Dose: 0.4 mg Temazepam (Restoril) 15 mg PO DAILY@0 [facility] Last Admin: 10/22/18 21:08 Dose: 15 mg Temazepam (Restoril) 15 mg PO DAILY@0000 PRN PRN Reason: SEE LABEL COMMENTS Thiamine HCl (Vitamin B1) 100 mg PO BID [facility] Last Admin: 10/23/18 09:01 Dose: 100 mg Exam Vital signs: Vital Signs 10/22/18 22:19 10/23/18 00:00 10/23/18 03:49 Temperature 98.3 F Pulse Rate 77 Respiratory Rate 16 20 16 Blood Pressure 117/54 L Pulse Oximetry 93 L 10/23/18 04:00 10/23/18 07:05 10/23/18 08:00 Temperature 98.2 F 98.1 F Pulse Rate 89 89 88 Respiratory Rate 18 20 Blood Pressure 139/65 162/69 H Pulse Oximetry 98 94 L 10/23/18 12:00 10/23/18 16:25 10/23/18 16:40 Temperature 98.4 F 98.6 F Pulse Rate 83 95 H 73 Respiratory Rate 20 20 18 Blood Pressure 134/73 146/86 H 135/73 Pulse Oximetry 97 93 L 95 10/23/18 16:55 10/23/18 20:00 Temperature 98.1 F Pulse Rate 86 88 Respiratory Rate 20 18 Blood Pressure 146/68 H 149/66 H Pulse Oximetry 96 98 Intake & Output 10/23/18 10/23/18 10/24/18 06:59 18:59 06:59 Intake Total 100 / 100 Output Total 500 / 500 Balance -400 / -400 Weight 114.3 kg Intake: IV 100 / 100 Rocephin Inj 2,000 MG In NS Inj 100 / 100 100 ML @ 200 mls/hr IV.SIG Q24H [facility] Rx#:[id number] Output: Urine Amount (Catheter) 500 / 500 Straight 500 / 500 Other: Date of Last Bowel Movement 10/22/18 10/22/18 Results - Lab Results 10/23/18 11:15 10/23/18 11:15 Most recent lab results ABG pH 7.43 (7.380-7.420) H 10/13/18 14:50 ABG pCO2 39 mmHg (38-42) 10/13/18 14:50 ABG pO2 53 mmHg (61-120) L* 10/13/18 14:50 ABG HCO3 25 mmol/L (22-26) 10/13/18 14:50 Calcium 9.9 mg/dL (8.5-10.1) 10/23/18 11:15 Assessment and Plan - Assessment (1) Chronic kidney disease (CKD) Code(s): N18.9 - Chronic kidney disease, unspecified Status: Acute (2) Osteomyelitis Code(s): M86.9 - Osteomyelitis, unspecified Status: Acute (3) Hypertension Code(s): I10 - Essential (primary) hypertension Status: Acute (4) Hypothyroidism Code(s): E03.9 - Hypothyroidism, unspecified Status: Acute (5) Anemia Code(s): D64.9 - Anemia, unspecified Status: Acute - Attending Attestation patient was seen and examined. Agree with above assessment and plan. Her renal function is stable, at baseline. Her main complaint at this time is inability to void, she has become dependent on intermittent catheterizations. <Chary Hidalgo - Last Filed: 10/23/18 10:18> (2) Osteomyelitis Qualifiers: Osteomyelitis type: unspecified type Osteomyelitis location: unspecified site Qualified Code(s): M86.9 - Osteomyelitis, unspecified <Jared Huynh - Last Filed: 10/23/18 21:44> (2) Osteomyelitis Qualifiers: Osteomyelitis type: unspecified type Osteomyelitis location: unspecified site Qualified Code(s): M86.9 - Osteomyelitis, unspecified
--- NOTE | 2018-10-23 09:56 | P.PNIM ---
Subjective Interval history: Follow-up visit Lumbar spine discitis, chronic anemia, HTN, urinary retention. Patient seen and examined today. Alert and oriented x3. Reports she is doing a lot better however still weak. Reports continued to have urinary retention or any she needs to be straight cathed at least twice a day. Otherwise, denies pain and discomfort. Denies SOB/ dyspnea. Denies chest pain, palpitations, headaches, dizziness. Denies fevers, chills, n/v/d. Physical Exam Vital signs: Vital Signs 10/22/18 12:00 10/22/18 16:00 10/22/18 20:00 Temperature 98.0 F 97.7 F 97.8 F Pulse Rate 82 91 H 85 Respiratory Rate 20 20 20 Blood Pressure 138/66 117/56 L 142/65 H Pulse Oximetry 96 97 98 10/22/18 22:19 10/23/18 00:00 10/23/18 03:49 Temperature 98.3 F Pulse Rate 77 Respiratory Rate 16 20 16 Blood Pressure 117/54 L Pulse Oximetry 93 L 10/23/18 04:00 10/23/18 07:05 Temperature 98.2 F 98.1 F Pulse Rate 89 89 Respiratory Rate 18 20 Blood Pressure 139/65 162/69 H Pulse Oximetry 98 94 L Intake & Output 10/22/18 10/23/18 10/23/18 18:59 06:59 18:59 Intake Total 100 / 100 Output Total 461 / 461 500 / 500 Balance -461 / -461 -400 / -400 Weight 114 kg 114.3 kg Intake: IV 100 / 100 Rocephin Inj 2,000 MG In NS Inj 100 / 100 100 ML @ 200 mls/hr IV.SIG Q24H [facility] Rx#:[id number] Output: Stool 1 / 1 Urine Amount (Catheter) 460 / 460 500 / 500 Straight 460 / 460 500 / 500 Other: Date of Last Bowel Movement 10/22/18 10/22/18 - Urinary Catheter Management Indwelling Urethral Catheter Cath placed during this visit: yes Reason for continuing: Not indwelling catheter Insertion date: 10/13/18 Insertion time: 11:00 Straight Cath placed during this visit: yes Reason for continuing: Not indwelling catheter Insertion date: 10/22/18 Insertion time: 22:00 Results - Labs CBC & Chem 7: 10/23/18 11:15 12/04/18 11:15 Assessment and Plan - Assessment (1) Discitis of lumbar region Code(s): M46.46 - Discitis, unspecified, lumbar region Status: Acute - Plan Patient is a 62-year-old female with a past medical history significant for hypertension, CKD and hypothyroidism presents to the emergency department for the evaluation of lower back pain. Urinary retention -Renal ultrasound 1. Mild increased echogenicity of the kidneys bilaterally which can suggest underlying medical renal disease. 2. 1.8 cm complex cyst at the right mid kidney. This is a Bosniak 2F lesion and should be followed. 3. Minimal fullness of the right renal pelvis without dilatation of the calyces. -Continue bethanechol. Add Flomax -Bladder scan as needed, if greater than 300ml straight cath -If continues to have retention, consult urology Encephalopathy, acute possibly toxic metabolic secondary to drug ingestion HALICAT 10/09/18 - 0000 -CT of the head negative, no evidence of acute infarct hemorrhage or mass edema -Cdiff neg 10/12 -UA neg for infection -ABG +hypoxia with O2 sat 83% on RA, now satting 99% on 2L -BCX NGTD -Lab reviewed, unremarkable except for leukocytosis which is trending down. -CXR shows mild patchy bilateral lower lobe airspace dz likely atelectasis -CT lumbar spine shows no significant change from prior study, no drainable fluid collection -low normal B12, started on supplementation -low normal thiamin, start on supplementation daily -Psychiatry following, appreciate assistance. At that time, patient did not have capacity at this time. Continue on Zyprexa at night. Improved, oriented and appropriate. -Neurology following, appreciate assistance. MRI of the brain ordered, negative per report. Risperdal and Restoril added to help with sleep. Has improved. -Dr. Green requested LP for evaluation of possible meningoencephalitis. -LP done 10/16 - CSF 40, RBC 5717, Glc 51, TP 47.5, VDRL -, HSV negative and Cx pending- so far negative -Neuro improved, oriented x 2-3. -restarted on some pain management, Flexeril and [place] 5 PRN -Improving neuro status L4-L5 discitis Patient had outpatient MRI done which showed possible osteomyelitis of L3/L4 ( disc in patient's chart) Patient with leukocytosis, elevated ESR/CRP -Blood cultures NGTD -ID following, appreciate assistance. CT a/p neg for iliopsoas abscess. Tumor markers CA 199, CEA - WNL. AFP pending -CT guided bx with IR done Follow up on cx. No pathology sent - CT a/p neg for iliopsoas abscess. s/p CT guided bx with IR, cx with no growth. Changed to Ceftriaxone on 10/18. -10/09/18 Repeat lumbar MRI of the spine showed changes consistent with discitis at L3-L4 without abscess. Diffuse degenerative changes without central canal stenosis. Potential left L3 neural foraminal impingement -Neurosurgery consulted, appreciate assistance. No surgical intervention at this time. -As per ID Conklin catheter placement secondary to IV antibiotic use. -Physical therapy to continue. Pending [facility] admission. Sepsis, PNA Leukocytosis -CXR showing questionable subtle small infiltrate in the medial right upper lobe. -Changed Cefepime to Ceftriaxone for discitis 10/18 -ID following as above -CBC reviewed, WBC trending down, no fever. Continue to monitor Anemia, acute on chronic -Hemoglobin 7.1/21.3, Hemoccult ordered -1 unit PRBC transfusion -Consult GI if warranted -Post Transfusion H/H 06/28 now 8.0. No evidence of acute bleeding, no complaints of abdominal pain -Patient was previously followed by hematology/oncology Dr. Thomson. 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 Diagnosed with Hodgkin's lymphoma at the age of 16 underwent radiation therapy but did not require any chemotherapy. Patient had a workup of flow cytometry negative, lymphocytosis negative Hypertension/hypothyroidism -Continue home medications atenolol 50 mg daily, with parameters, Synthroid -Monitor BP trend Chronic kidney disease Creatinine near baseline for the patient -Avoid nephrotoxic agents -Monitor renal function as indicated Constipation, chronic -initiate bowel regimen -monitor BM pattern Hx of lymphoma s/p radiation therapy, in remission -Follow-up in the outpatient DVT prophylaxis bilateral SCD/TRINITY hose CODE STATUS Full code Discussed with patient, nursing Discharge Planning: Plan for [place] [facility] vs SNF. Pending Conklin placement.
--- NOTE | 2018-10-23 10:12 | US ---
EXAM DATE: 10/23/2018 9:57 AM EST AGE/SEX: 62 years / Female INDICATIONS: Abnormal labs. CLINICAL DATA: This is the patient's initial encounter. Patient reports that signs and symptoms have been present for 1 day and indicates a pain score of 1/10. MEDICAL/SURGICAL HISTORY: Hypertension. Hypothyroidism. CKD. Delirium. Hyperlipidemia. Cholec ystectomy. Thyroidectomy. Splenectomy. Total bilateral knee replacements. COMPARISON: [facility] – [place] ABDOMEN & PELVIS W/O CONTRAST, 10/05/2018. . MEASUREMENTS: Right Kidney:__10.2 X 5.6 X 4.5 cm Left Kidney:__9.0 X 4.2 X 4.6 cm FINDINGS: Right Kidney: The renal cortex appears mildly increased in echogenicity. The renal cortex is normal i n thickness. The kidney appears minimally lobulated. There is minimal fullness of the right renal pel vis. The calyces are not dilated. There is a 1.8 cm complex cyst seen at the mid right kidney. Left Kidney: Increased echotexture. No hydronephrosis. There is a 2.1 cm cyst at the lower pole. Bladder: Within normal limits given the degree of distension. Other: None. CONCLUSION: 1. Mild increased echogenicity of the kidneys bilaterally which can suggest underlying medical renal disease. 2. 1.8 cm complex cyst at the right mid kidney. This is a Bosniak 2F lesion and should be followed. 3. Minimal fullness of the right renal pelvis without dilatation of the calyces. Electronically signed by: Sammy Rosales MD 10/23/2018 10:11 AM EST
[2018-10-23 12:01] LABS: Hematocrit 27.7 % (35.0-46.0); Hemoglobin 8.9 gm/dL (11.6-15.3); Mean Corpuscular HGB Conc 32.3 % (32.0-36.0); Mean Corpuscular Hemoglobin 31.2 pg (27.0-34.0); Mean Corpuscular Volume 96.6 fL (80.0-100.0); Mean Platelet Volume 12.8 fL (7.0-11.0); Platelet Count 254 th/mm3 (150-450); Red Blood Count 2.87 mil/mm3 (4.00-5.30); Red Cell Distribution Width 17.1 % (11.6-17.2); White Blood Count 13.7 th/mm3 (4.0-11.0)
[2018-10-23 12:53] LABS: Calcium 9.9 mg/dL (8.5-10.1); Carbon Dioxide 29.5 meq/L (21.0-32.0); Potassium 3.4 meq/L (3.5-5.1)
[2018-10-23 12:59] LABS: Lymphocytes 21 % (9-44); Monocytes 8 % (0-8)
[2018-10-23 13:00] LABS: Platelet Estimate Normal (Normal); Target Cells 2+
[2018-10-23 13:02] LABS: Howell-Jolly Bodies Present; Ovalocytes 1+
[2018-10-23] MEDS ORDERED: fentaNYL Citrate Inj 100 MCG/2 ML Ampul ONE (15:22)
[2018-10-23] MEDS ORDERED: *Heparin Central Flush 100 UNIT/ML 5 ML Vial PERIprocedural ONLY IV.FLUSH ONE (15:54)
[2018-10-23] MEDS ORDERED: Lidocaine 1%/Epinephrine 1:100,000 Inj 30 ML Vial ONE (15:54)
--- NOTE | 2018-10-23 16:26 | P.CONREH ---
History of Present Illness Primary Care Provider: Nancy Chou MD Chief Complaint: back pain PMFSH - History History Provided By: Patient - Medical History Medical History: Medical History (Last Reviewed 10/23/18 @ 08:38 by Erum Lima) Delirium Hypothyroidism CKD (chronic kidney disease) Hyperlipemia Hypertension - Surgical History Surgical History: Surgical History (Last Reviewed 10/23/18 @ 08:38 by Erum Lima) History of cholecystectomy History of knee replacement, total Hx of splenectomy Hx of thyroidectomy - Family History Family History: Family History (Last Reviewed 10/22/18 @ 09:03 by Elsi Khan) Other Coronary artery disease - Tobacco History Second Hand Smoke Exposure: No Tobacco Use In Past 30 Days: No Smoking Status: Former smoker Tobacco Type: Cigarettes - Alcohol History How Often Do You Have a Drink Containing Alcohol: Monthly or less - Substance Use History Substance History: No History of Abuse - Travel History Recent Travel in the [place] Within the Last 8 Weeks: No Recent Travel Out of the Country Within the Last 8 Weeks: No - Immunization History Tetanus Immunization: Unable to Assess Hx Influenza Vaccine This Season: No Medications and Allergies Active Medications: Active Medications Acetaminophen (Tylenol) 650 mg PO Q4H PRN PRN Reason: Temp > 100.4 Last Admin: 10/18/18 10:34 Dose: 650 mg Hydrocodone Bitart/Acetaminophen ([place] 5/325) 1 tab PO Q6H PRN PRN Reason: Pain 1-5 Last Admin: 10/23/18 09:56 Dose: 1 tab Hydrocodone Bitart/Acetaminophen ([place] 10/325) 1 tab PO Q6H PRN PRN Reason: Pain 6-10 Amlodipine Besylate (Norvasc) 10 mg PO DAILY [facility] Last Admin: 10/23/18 09:01 Dose: 10 mg Atenolol (Tenormin) 75 mg PO DAILY [facility] Last Admin: 10/23/18 09:01 Dose: 75 mg Bethanechol Chloride (Urecholine) 10 mg PO TID [facility] Last Admin: 10/23/18 13:00 Dose: 10 mg Bisacodyl (Dulcolax Supp) 10 mg RECTAL DAILY PRN PRN Reason: SEVERE CONSITIPATION Calcitriol (Rocaltrol) 0.25 mcg PO DAILY [facility] Last Admin: 10/23/18 09:03 Dose: 0.25 mcg Clonidine HCl (Catapres) 0.1 mg PO Q6H PRN PRN Reason: SBP>180 OR DBP >95 Cyanocobalamin (Vitamin B12) 1,000 mcg PO DAILY [facility] Last Admin: 10/23/18 09:01 Dose: 1,000 mcg Cyclobenzaprine HCl (Flexeril) 10 mg PO BID [facility] Last Admin: 10/23/18 09:01 Dose: 10 mg Heparin Sodium (Porcine) (Heparin Inj) 5,000 units SQ Q12HR [facility] Last Admin: 10/23/18 09:02 Dose: 5,000 units Hydralazine HCl (Apresoline) 25 mg PO TID [facility] Last Admin: 10/23/18 13:00 Dose: 25 mg Ceftriaxone Sodium 2,000 mg/ (Sodium Chloride) 100 mls @ 200 mls/hr IV.SIG Q24H [facility] Last Infusion: 10/22/18 22:32 Dose: Infused Levothyroxine Sodium (Synthroid) 112 mcg PO DAILY@0600 [facility] Last Admin: 10/23/18 06:16 Dose: 112 mcg Levothyroxine Sodium (Synthroid) 25 mcg PO DAILY@0600 [facility] Last Admin: 10/23/18 06:16 Dose: 25 mcg Lidocaine HCl (Lidoderm 5% Patch.12 Hr) 1 patch T-DERMAL DAILY [facility] Last Admin: 10/23/18 09:02 Dose: 1 patch Megestrol Acetate (Megace) 40 mg PO DAILY [facility] Last Admin: 10/23/18 09:01 Dose: 40 mg Miscellaneous (Pill Splitter) 1 each OTHER UNSCH PRN PRN Reason: PILL SPLITTING Ondansetron HCl (Zofran Inj) 4 mg IV.PUSH Q6H PRN PRN Reason: NAUSEA OR VOMITING Last Admin: 10/16/18 10:46 Dose: 4 mg Pantoprazole Sodium (Protonix) 20 mg PO BID [facility] Last Admin: 10/23/18 09:01 Dose: 20 mg Patch Removal (Remove Old Patch) 1 each T-DERMAL HS [facility] Last Admin: 10/22/18 21:09 Dose: 1 each Risperidone (Risperdal) 0.5 mg PO DAILY@2200 [facility] Last Admin: 10/22/18 21:09 Dose: 0.5 mg Risperidone (Risperdal) 0.5 mg PO DAILY@0000 PRN PRN Reason: SEE LABEL COMMENTS Senna/Docusate Sodium (Joyce-Colace) 1 tab PO BID [facility] Last Admin: 10/23/18 09:01 Dose: 1 tab Sennosides (Senokot) 17.2 mg PO Q12H PRN PRN Reason: Moderate Constipation Last Admin: 10/06/18 10:15 Dose: 17.2 mg Sodium Chloride (Ns Flush) 2 ml IV.FLUSH BID [facility] Last Admin: 10/23/18 09:02 Dose: 2 ml Sodium Chloride (Ns Flush) 2 ml IV.FLUSH PRN PRN PRN Reason: FLUSH AFTER USING IV ACCESS Tamsulosin HCl (Flomax) 0.4 mg PO DAILY [facility] Last Admin: 10/23/18 09:12 Dose: 0.4 mg Temazepam (Restoril) 15 mg PO DAILY@2200 [facility] Last Admin: 10/22/18 21:08 Dose: 15 mg Temazepam (Restoril) 15 mg PO DAILY@0000 PRN PRN Reason: SEE LABEL COMMENTS Thiamine HCl (Vitamin B1) 100 mg PO BID [facility] Last Admin: 10/23/18 09:01 Dose: 100 mg Allergies Allergy/AdvReac Type Severity Reaction Status Date / Time doxycycline Allergy Severe Anaphylaxis Verified 10/03/18 20:08 sulfamethoxazole Allergy Severe Anaphylaxis Verified 10/03/18 20:08 trimethoprim Allergy Severe Anaphylaxis Verified 10/03/18 20:08 Home Medications Medication Instructions Recorded Confirmed Type allopurinol 100 mg PO DAILY 07/05/18 10/03/18 History amlodipine 10 mg PO DAILY 07/05/18 10/03/18 History atenolol 50 mg PO DAILY 07/05/18 10/03/18 History calcitriol 0.25 mcg PO DAILY 07/05/18 10/03/18 History cyclobenzaprine 10 mg PO BID 07/05/18 10/03/18 History furosemide [Lasix] 20 mg PO DAILY 07/05/18 10/03/18 History hydrocodone-acetaminophen 1 tab PO Q4H PRN 07/05/18 10/03/18 History levothyroxine 137 mcg PO DAILY 07/05/18 10/03/18 History omeprazole 20 mg PO BID 07/05/18 10/03/18 History pregabalin [Lyrica] 75 mg PO BID 07/05/18 10/03/18 History zolpidem 10 mg PO HS 07/05/18 10/03/18 History Exam - Physical Examination Vital Signs / I&O: Vital Signs 10/22/18 20:00 10/22/18 22:19 10/23/18 00:00 Temperature 97.8 F 98.3 F Pulse Rate 85 77 Respiratory Rate 20 16 20 Blood Pressure 142/65 H 117/54 L Pulse Oximetry 98 93 L 10/23/18 03:49 10/23/18 04:00 10/23/18 07:05 Temperature 98.2 F 98.1 F Pulse Rate 89 89 Respiratory Rate 16 18 20 Blood Pressure 139/65 162/69 H Pulse Oximetry 98 94 L 10/23/18 08:00 10/23/18 12:00 Temperature 98.4 F Pulse Rate 88 83 Respiratory Rate 20 Blood Pressure 134/73 Pulse Oximetry 97 Intake & Output 10/22/18 10/23/18 10/23/18 18:59 06:59 18:59 Intake Total 100 / 100 Output Total 461 / 461 500 / 500 Balance -461 / -461 -400 / -400 Weight 114 kg 114.3 kg Intake: IV 100 / 100 Rocephin Inj 2,000 MG In NS Inj 100 / 100 100 ML @ 200 mls/hr IV.SIG Q24H [facility] Rx#:[id number] Output: Stool 1 / 1 Urine Amount (Catheter) 460 / 460 500 / 500 Straight 460 / 460 500 / 500 Other: Date of Last Bowel Movement 10/22/18 10/22/18 Intake & Output 10/21/18 10/22/18 10/23/18 10/24/18 06:59 06:59 06:59 06:59 Intake Total 100 / 100 100 / 100 100 / 100 Output Total 600 / 600 700 / 700 961 / 961 Balance -500 / -500 -600 / -600 -861 / -861 Weight 114.6 kg 114 kg 114.3 kg Date of Last Bowel Movement: 10/22/18 Results - Labs CBC & Chem 7: 10/23/18 11:15 10/23/18 11:15 Labs: Laboratory Results - last 24 hr 10/23/18 10/23/18 11:15 11:15 WBC 13.7 H RBC 2.87 L Hgb 8.9 L Hct 27.7 L MCV 96.6 MCH 31.2 MCHC 32.3 RDW 17.1 Plt Count 254 MPV 12.8 H Prelim Diff (Auto) Manual diff required WBC Differential Manual diff final Seg Neuts % (Manual) 60 Band Neuts % (Manual) 8 H Lymphocytes % (Manual) 21 Monocytes % (Manual) 8 Basophils % (Manual) 3 H Abs Neuts (Manual) 9.3 H Differential Comment . Platelet Estimate Normal Platelet Morphology Enlarged H Target Cells 2+ H Ovalocytes 1+ H Red-Neibert Bodies Present H Sodium 143 Potassium 3.4 L D Chloride 107 Carbon Dioxide 29.5 Anion Gap 7 BUN 26 H Creatinine 1.71 H Estimated GFR 36 L Random Glucose 106 Calcium 9.9 - Imaging Impressions Abdomen/Bladder Ultrasound 10/23/18 00:00 CONCLUSION: 1. Mild increased echogenicity of the kidneys bilaterally which can suggest underlying medical renal disease. 2. 1.8 cm complex cyst at the right mid kidney. This is a Bosniak 2F lesion and should be followed. 3. Minimal fullness of the right renal pelvis without dilatation of the calyces. Assessment and Plan (1) Discitis of lumbar region Status: Acute Code(s): M46.46 - Discitis, unspecified, lumbar region - Plan Assessment: 1. Peer to peer review completed today for inpatient rehabilitation. Decision pending per [employer]. 2. Continue to mobilize with PT. Now max assist of 2 for transfers and sitting edge of bed 3. OT for ADL's 4. Would consider Baclofen 5 mg tid for muscle spasticity instead of Flexeril 5. Reposition q 2 hours to protect skin and monitor closely 6. Case management addressing discharge planning in conjunction with insurance 7. Will follow while hospitalized and at discharge as appropriate Thank you for this consult
--- NOTE | 2018-10-23 18:56 | IR ---
EXAM DATE: 10/23/2018 5:13 PM EST AGE/SEX: 62 years / Female INDICATIONS: Patient in need of Conklin catheter for antibiotic administration. CLINICAL DATA: This is the patient's initial encounter. Patient reports that signs and symptoms have been present for 3 weeks and indicates a pain score of 0/10. MEDICAL/SURGICAL HISTORY: . Hypothyroidism, CKD, HTN, Hyperlipidemia. . Cholecystectomy, Knee replacement, Splenectomy, Thyroidectomy. COMPARISON: . FLUORO TIME (min): 0.45 IMAGE SERIES: 2 SEDATION TIME (min): 30 MEDICATION(S): 200 units Heparin IV 2 mg midazolam (Versed) IV 100 mcg fentanyl (Sublimaze) IV DEVICE(S): Right 6.6fr single lumen Conklin . . PROCEDURE : 1. Fluoroscopic guidance. 2. Conklin catheter placement 3. Conscious sedation with continuous EKG and oximetry monitoring. The risks, benefits and alternatives to the procedure were explained and verbal and written consent w as obtained. The site was prepped in sterile fashion. Full sterile technique was used, including ca p, mask, sterile gloves and gown and a large sterile sheet. Hand hygiene and 2% chlorhexidine and Be tadine was utilized per protocol for cutaneous antisepsis with appropriate dry time for site. The sk in and subcutaneous tissues were infiltrated with local anesthetic solution. With fluoroscopic guidance a dermatotomy was created in the supraclavicular region. A micropuncture set was used to access to the prescribed vein and serial dilatation was performed to accept a Conklin catheter. A subcutaneous tunnel was created and in antegrade fashion the catheter was pulled throug h the tunnel, cut to the appropriate length and place through the sheath. The catheter was locked wi th heparin and sutured in place. Conscious sedation was performed with the prescribed dosages and duration as above in the presence of an independent trained radiology nurse to assist in the monitoring of the patient. EKG and oximetry remained stable throughout the procedure. The patient tolerated the procedure well and there were no complications. The patient was sent to post anesthesia recovery in stable condition. CONCLUSION: 1. Uncomplicated Conklin catheter placement as above. Electronically signed by: Barrett Blair MD 10/23/2018 6:55 PM EST
[2018-10-23] MEDS: Temazepam 15 MG Capsule PO SCH (21:49)
[2018-10-23] MEDS: Baclofen 10 MG Tablet PO SCH (21:52)
[2018-10-24] MEDS ORDERED: Heparin Central Flush 100 UNIT/ML 5 ML Vial IV.FLUSH PRN (00:03)
[2018-10-24] MEDS: Levothyroxine 112 MCG Tablet PO SCH (06:19)
[2018-10-24] MEDS: Baclofen 10 MG Tablet PO SCH (06:20)
[2018-10-24] MEDS: Calcitriol 0.25 MCG Capsule PO SCH (08:16)
[2018-10-24] MEDS: Heparin - SQ 10,000 UNITS/ML Vial SQ SCH (08:16)
[2018-10-24] MEDS: Pantoprazole Sodium 20 MG DR Tablet PO SCH (08:16)
[2018-10-24] MEDS: Senna/Docusate Sodium 8.6/50 MG Tablet PO SCH (08:16)
[2018-10-24] MEDS: amLODIPine 10 MG Tablet PO SCH (08:16)
[2018-10-24] MEDS: Atenolol 50 MG Tablet PO SCH (08:16)
[2018-10-24] MEDS: hydrALAZINE 25 MG Tablet PO SCH (08:16)
[2018-10-24] MEDS: Lidocaine 5% Patch T-DERMAL SCH (08:17)
[2018-10-24] MEDS: Sodium Chloride 0.9% 2 ML Flush BID IV.FLUSH SCH (08:18)
[2018-10-24] MEDS ORDERED: Heparin Central Flush 100 UNIT/ML 5 ML Vial IV.FLUSH SCH (09:00)
--- NOTE | 2018-10-24 10:36 | P.PNIM ---
Subjective Interval history: Follow-up visit Lumbar spine discitis, chronic anemia, HTN, urinary retention. Patient seen and examined today. Alert and oriented x3. Reports she is doing a l okay. States she has the urge to void but she was unable to void. Reports continued to have urinary retention and constipation. Otherwise, denies pain and discomfort. Denies SOB/ dyspnea. Denies chest pain, palpitations, headaches, dizziness. Denies fevers, chills, n/v/d. Physical Exam Vital signs: Vital Signs 10/23/18 12:00 10/23/18 16:25 10/23/18 16:40 Temperature 98.4 F 98.6 F Pulse Rate 83 95 H 73 Respiratory Rate 20 20 18 Blood Pressure 134/73 146/86 H 135/73 Pulse Oximetry 97 93 L 95 10/23/18 16:55 10/23/18 20:00 10/24/18 00:00 Temperature 98.1 F 98.3 F Pulse Rate 86 86 81 Respiratory Rate 20 18 18 Blood Pressure 146/68 H 149/66 H 132/62 Pulse Oximetry 96 98 95 10/24/18 03:48 10/24/18 04:00 10/24/18 07:47 Temperature 98.1 F 98.8 F Pulse Rate 84 89 Respiratory Rate 16 18 20 Blood Pressure 126/58 L 133/63 Pulse Oximetry 94 L 95 Intake & Output 10/23/18 10/24/18 10/24/18 18:59 06:59 18:59 Intake Total 100 / 100 Output Total 600 / 600 Balance -500 / -500 Weight 119 kg Intake: IV 100 / 100 Rocephin Inj 2,000 MG In NS Inj 100 / 100 100 ML @ 200 mls/hr IV.SIG Q24H [facility] Rx#:[id number] Output: Urine 600 / 600 Other: Date of Last Bowel Movement 10/22/18 10/22/18 10/23/18 Narrative: GENERAL: This is a obese, well-developed AF patient, mildly distress. SKIN: Warm and dry. HEENT: Normocephalic. Pupils equal round and reactive. Nose without bleeding. Airway patent. NECK: Trachea midline. CARDIOVASCULAR: Regular rate and rhythm without murmurs, gallops, or rubs. RESPIRATORY: Diminished bases. No wheezes, rales, or rhonchi. GASTROINTESTINAL: Abdomen soft, non-tender. Bowel Sounds normoactive x4. MUSCULOSKELETAL: Extremities without clubbing, cyanosis, or edema. NEUROLOGICAL: Awake and alert. Moves all extremities, weak BLE . Normal speech. No focal neuro deficit. Oriented to year, place, person. - Urinary Catheter Management Indwelling Urethral Catheter Cath placed during this visit: yes Reason for continuing: Chronic Urinary Retention Insertion date: 10/23/18 Insertion time: 11:00 Straight Cath placed during this visit: yes Reason for continuing: Chronic Urinary Retention Insertion date: 10/22/18 Insertion time: 22:00 Results - Labs CBC & Chem 7: 10/23/18 11:15 10/23/18 11:15 Laboratory Results - last 24 hr 10/23/18 10/23/18 11:15 11:15 WBC 13.7 H RBC 2.87 L Hgb 8.9 L Hct 27.7 L MCV 96.6 MCH 31.2 MCHC 32.3 RDW 17.1 Plt Count 254 MPV 12.8 H Prelim Diff (Auto) Manual diff required WBC Differential Manual diff final Seg Neuts % (Manual) 60 Band Neuts % (Manual) 8 H Lymphocytes % (Manual) 21 Monocytes % (Manual) 8 Basophils % (Manual) 3 H Abs Neuts (Manual) 9.3 H Differential Comment . Platelet Estimate Normal Platelet Morphology Enlarged H Target Cells 2+ H Ovalocytes 1+ H Red-Diamond Bodies Present H Sodium 143 Potassium 3.4 L D Chloride 107 Carbon Dioxide 29.5 Anion Gap 7 BUN 26 H Creatinine 1.71 H Estimated GFR 36 L Random Glucose 106 Calcium 9.9 Microbiology 10/16/18 14:20 Cerebral Spinal Fluid - Lumbar Puncture Fungal Smear - Final No fungal elements seen 10/16/18 14:20 Cerebral Spinal Fluid - Lumbar Puncture Fungal Culture - Preliminary No growth in 1 week 10/16/18 14:20 Cerebral Spinal Fluid - Lumbar Puncture Acid Fast Bacilli Smear - Final No acid fast bacilli seen 10/16/18 14:20 Cerebral Spinal Fluid - Lumbar Puncture Mycobacterial Culture - Preliminary No growth in 1 week - Imaging Impressions Conklin Line Insertion 10/23/18 00:00 CONCLUSION: 1. Uncomplicated Conklin catheter placement as above. Assessment and Plan - Assessment (1) Discitis of lumbar region Code(s): M46.46 - Discitis, unspecified, lumbar region Status: Acute - Plan Patient is a 62-year-old female with a past medical history significant for hypertension, CKD and hypothyroidism presents to the emergency department for the evaluation of lower back pain. Urinary retention -Renal ultrasound 1. Mild increased echogenicity of the kidneys bilaterally which can suggest underlying medical renal disease. 2. 1.8 cm complex cyst at the right mid kidney. This is a Bosniak 2F lesion and should be followed. 3. Minimal fullness of the right renal pelvis without dilatation of the calyces. -Continue bethanechol. Add Flomax -Bladder scan as needed, if greater than 300ml straight cath -Failed cath trial, gamboa placed. Urology consult. Encephalopathy, acute possibly toxic metabolic secondary to drug ingestion HALICAT 10/09/18 - 0000 -CT of the head negative, no evidence of acute infarct hemorrhage or mass edema -Cdiff neg 10/12 -UA neg for infection -ABG +hypoxia with O2 sat 83% on RA, now satting 99% on 2L -BCX NGTD -Lab reviewed, unremarkable except for leukocytosis which is trending down. -CXR shows mild patchy bilateral lower lobe airspace dz likely atelectasis -CT lumbar spine shows no significant change from prior study, no drainable fluid collection -low normal B12, started on supplementation -low normal thiamin, start on supplementation daily -Psychiatry following, appreciate assistance. At that time, patient did not have capacity at this time. Continue on Zyprexa at night. Improved, oriented and appropriate. -Neurology following, appreciate assistance. MRI of the brain ordered, negative per report. Risperdal and Restoril added to help with sleep. Has improved. -Dr. Green requested LP for evaluation of possible meningoencephalitis. -LP done 10/16 - CSF 40, RBC 5717, Glc 51, TP 47.5, VDRL -, HSV negative and Cx pending- so far negative -Neuro improved, oriented x 2-3. -restarted on some pain management, Flexeril and [place] 5 PRN -Improving neuro status L4-L5 discitis Patient had outpatient MRI done which showed possible osteomyelitis of L3/L4 ( disc in patient's chart) Patient with leukocytosis, elevated ESR/CRP -Blood cultures NGTD -ID following, appreciate assistance. CT a/p neg for iliopsoas abscess. Tumor markers CA 199, CEA - WNL. AFP pending -CT guided bx with IR done Follow up on cx. No pathology sent - CT a/p neg for iliopsoas abscess. s/p CT guided bx with IR, cx with no growth. Changed to Ceftriaxone on 10/18. -10/09/18 Repeat lumbar MRI of the spine showed changes consistent with discitis at L3-L4 without abscess. Diffuse degenerative changes without central canal stenosis. Potential left L3 neural foraminal impingement -Neurosurgery consulted, appreciate assistance. No surgical intervention at this time. -Conklin catheter placed - IV antibiotic use. -Physical therapy to continue. Sepsis, PNA Leukocytosis -CXR showing questionable subtle small infiltrate in the medial right upper lobe. -Changed Cefepime to Ceftriaxone for discitis 10/18 -ID following as above -CBC reviewed, WBC trending down, no fever. Continue to monitor Anemia, acute on chronic -Hemoglobin 7.1/21.3, Hemoccult ordered -1 unit PRBC transfusion -Consult GI if warranted -Post Transfusion H/H 8 now 8.0. No evidence of acute bleeding, no complaints of abdominal pain -Patient was previously followed by hematology/oncology Dr. Thomson. 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 Diagnosed with Hodgkin's lymphoma at the age of 16 underwent radiation therapy but did not require any chemotherapy. Patient had a workup of flow cytometry negative, lymphocytosis negative Hypertension/hypothyroidism -Continue home medications atenolol 50 mg daily, with parameters, Synthroid -Monitor BP trend Chronic kidney disease Creatinine near baseline for the patient -Avoid nephrotoxic agents -Monitor renal function as indicated Constipation, chronic -initiate bowel regimen -monitor BM pattern Hx of lymphoma s/p radiation therapy, in remission -Follow-up in the outpatient DVT prophylaxis bilateral SCD/TRINITY hose CODE STATUS Full code Discussed with patient, nursing Discharge Planning: JESS [place]
--- NOTE | 2018-10-24 11:32 | P.DS ---
Date of admission: 10/03/18 21:07 Primary care physician: Nancy Chou MD Attending physician on discharge: Bridget Sawyer Anticipated date of discharge: 10/24/18 Brief History from admission: 62-year-old female with a past medical history significant for hypertension and hypothyroidism presents to the emergency department for the evaluation of lower back pain. The patient had an outpatient lumbar spine MRI done for sciatic symptoms earlier today. She was called by her primary care physician who told her to come to the emergency department because she needed a "back biopsy." The ED physician was able to speak to the patient's primary care physician, Dr. Rodriguez, who stated that the MRI was suggestive of osteomyelitis at the L3/L4 level. The patient reports that she has had 2-3 weeks of lower back pain that radiates to the left side and down her left lower extremity. She denies any fever/chills. She was hospitalized in April of this year with sepsis and bacteremia. The patient had gram-negative sepsis secondary to E. coli from a urinary tract infection. She was seen by infectious disease and treated with Zosyn. The patient denies any fever/chills. No chest pain or shortness of breath. No urinary symptoms. No abdominal pain. No nausea/vomiting/diarrhea. Patient update on day of discharge: Follow-up visit Lumbar spine discitis, chronic anemia, HTN, urinary retention. Patient seen and examined today. Alert and oriented x3. Reports she is doing a l okay. States she has the urge to void but she was unable to void. Reports continued to have urinary retention and constipation. Otherwise, denies pain and discomfort. Denies SOB/ dyspnea. Denies chest pain, palpitations, headaches, dizziness. Denies fevers, chills, n/v/d. DS: Diagnosis - Discharge Diagnosis (1) Discitis of lumbar region Status: Acute DS: Summary Hospital Course: Patient is a 62-year-old with a past medical history significant for hypertension, CKD and hypothyroidism presents to the emergency department for the evaluation of lower back pain. Patient had outpatient MRI done which shows possible osteomyelitis of L3-L4. Patient had leukocytosis with elevated ESR and CRP.CT guided bx with IR done Follow up on cx. No pathology sent. CT a/p neg for iliopsoas abscess. s/p CT guided bx with IR, cx with no growth. Infectious disease following and place patient on IV Ceftriaxone on 10/18. 10/09 Repeat lumbar MRI of the spine showed changes consistent with discitis at L3 -L4 without abscess. Diffuse degenerative changes without central canal stenosis. Potential left L3 neural foraminal impingement. LP done 10/16- CSF 40 , RBC 5717, Glc 51, TP 47.5, VDRL - non reactive, HSV negative and Cx NGTD. Neurosurgery consulted, no surgical intervention at this time. Conklin catheter placed - IV antibiotic use. Her hospitalization was complicated with sepsis pneumonia. Chest x-ray showed questionable subtle small infiltrate on the medial right upper lobe. She was given cefepime prior to switching to ceftriaxone for that ascites. Patient also found to have toxic encephalopathy possibly from drug ingestion. Had an episode of [id number]. CT of the head negative, no evidence of acute infarct hemorrhage or mass edema. Cdiff neg . UA neg for infection. Blood cultures collected with no growth to date. Urology has also followed the patient and an MRI of the brain has been ordered and was negative. Patient was started on Risperdal and Restoril to help with sleep. Psychiatry also followed the patient and deemed patient did not have the capacity. Zyprexa was also given at night and has significantly improved patient's mental status. Currently patient is a and O x3. Patient also found to have urinary retention. Patient was started on bethanechol, Flomax. Needed to be straight cath twice a day and has failed of catheterization trial. Caputo catheter was placed today. Urology was consulted. Please reconsult urology to follow the patient. Patient's other medical comorbidities include hypertension, hypothyroidism, anemia acute on chronic wear and she received 1 unit of blood. She also get Procrit with her ndt inspector in the outpatient. Previously diagnosed with Hodgkin's lymphoma at the age of 16 and underwent radiation therapy but did not require chemotherapy. H&H has been stable. Patient also has chronic constipation bowel regimen should be continued. Medically stable to discharge to inpatient rehabilitation. Patient has met maximal benefits of hospitalization. Clinically stable for discharge. - Time Spent with Patient Total time spent providing and/or coordinating discharge services: Greater than 30 minutes - Quality: VTE Deep Vein Thrombosis/Pulmonary Embolism Present on Admission: No Exam Vital signs: Vital Signs 10/23/18 12:00 10/23/18 16:25 10/23/18 16:40 Temperature 98.4 F 98.6 F Pulse Rate 83 95 H 73 Respiratory Rate 18 Blood Pressure 134/73 146/86 H 135/73 Pulse Oximetry 97 93 L 95 10/23/18 16:55 10/23/18 20:00 10/24/18 00:00 Temperature 98.1 F 98.3 F Pulse Rate 86 86 81 Respiratory Rate 18 Blood Pressure 146/68 H 149/66 H 132/62 Pulse Oximetry 96 98 95 10/24/18 03:48 10/24/18 04:00 10/24/18 07:47 Temperature 98.1 F 98.8 F Pulse Rate 84 89 Respiratory Rate 16 18 20 Blood Pressure 126/58 L 133/63 Pulse Oximetry 94 L 95 Intake & Output 10/23/18 10/24/18 10/24/18 18:59 06:59 18:59 Intake Total 100 / 100 Output Total 600 / 600 Balance -500 / -500 Weight 119 kg Intake: IV 100 / 100 Rocephin Inj 2,000 MG In NS Inj 100 / 100 100 ML @ 200 mls/hr IV.SIG Q24H [facility] Rx#:[id number] Output: Urine 600 / 600 Other: Date of Last Bowel Movement 10/22/18 10/22/18 10/23/18 Narrative: GENERAL: This is a obese, well-developed AF patient, mildly distress. SKIN: Warm and dry. HEENT: Normocephalic. Pupils equal round and reactive. Nose without bleeding. Airway patent. NECK: Trachea midline. CARDIOVASCULAR: Regular rate and rhythm without murmurs, gallops, or rubs. RESPIRATORY: Diminished bases. No wheezes, rales, or rhonchi. GASTROINTESTINAL: Abdomen soft, non-tender. Bowel Sounds normoactive x4. MUSCULOSKELETAL: Extremities without clubbing, cyanosis, or edema. NEUROLOGICAL: Awake and alert. Moves all extremities, weak BLE . Normal speech. No focal neuro deficit. Oriented to year, place, person. Results Procedures completed during hospitalization: -LP done 10/16 Labs on day of discharge: Labs from last 24 hours 10/23/18 10/23/18 11:15 11:15 WBC 13.7 H RBC 2.87 L Hgb 8.9 L Hct 27.7 L MCV 96.6 MCH 31.2 MCHC 32.3 RDW 17.1 Plt Count 254 MPV 12.8 H Prelim Diff (Auto) Manual diff required WBC Differential Manual diff final Seg Neuts % (Manual) 60 Band Neuts % (Manual) 8 H Lymphocytes % (Manual) 21 Monocytes % (Manual) 8 Basophils % (Manual) 3 H Abs Neuts (Manual) 9.3 H Differential Comment . Platelet Estimate Normal Platelet Morphology Enlarged H Target Cells 2+ H Ovalocytes 1+ H Red-[place] Bodies Present H Sodium 143 Potassium 3.4 L D Chloride 107 Carbon Dioxide 29.5 Anion Gap 7 BUN 26 H Creatinine 1.71 H Estimated GFR 36 L Random Glucose 106 Calcium 9.9 Preliminary micro results at discharge 10/16/18 14:20 Fungal Culture - Preliminary Cerebral Spinal Fluid - Lumbar Puncture No growth in 1 week 10/16/18 14:20 Mycobacterial Culture - Preliminary Cerebral Spinal Fluid - Lumbar Puncture No growth in 1 week 10/05/18 14:48 Fungal Culture - Preliminary Fluid - Other No growth in 2 weeks 10/05/18 14:48 Mycobacterial Culture - Preliminary Fluid - Other No growth in 2 weeks - Impressions ITS Impressions Needle Biopsy/Aspiration X-Ray 10/05/18 00:00 CONCLUSION: 1. Uncomplicated L3-L4 disc aspiration as above. Abdomen/Pelvis CT 10/05/18 10:07 CONCLUSION: 1. There are advanced degenerative changes throughout the lumbar spine. There is some cortical irregularity of the vertebral endplates across the L3/4 disc level. Presumably there is outside cross-sectional imaging through this area. There was concern for possible abscess in the iliopsoas muscle. There is some subtle decreased attenuation in the muscle on the left side just beneath the L3- 4 disc space but I do not see a definite defined drainable collection by noncontrast imaging. If possible, postcontrast imaging may be of benefit for more definitive assessment. 2. There are 2 low-attenuation lesions within the liver. These are too small to definitively characterize by noncontrast CT. 3. The patient is post splenectomy. Head CT 10/09/18 00:00 CONCLUSION: 1. Negative CT Head non contrast. 2. No evidence of acute infarct, hemorrhage, mass or edema. . Lumbar Spine MRI 10/09/18 00:00 CONCLUSION: 1. Changes consistent with discitis at L3-L4 without abscess. 2. Diffuse degenerative changes without central canal stenosis. Potential left L3 neural foraminal impingement. Details given above. Chest X-Ray 10/13/18 00:00 CONCLUSION: 1. Mild patchy bilateral lower lobe airspace disease which may reflect atelectasis. Lumbar Spine CT 10/13/18 00:00 CONCLUSION: 1. Discitis changes at L3/L4 again noted. The disc space narrowing and vertebral body endplate irregularity is mostly towards the left. No significant change from the prior MRI. No perceptible drainable fluid collection. Head MRI 10/15/18 07:09 CONCLUSION: 1. Negative MR Brain non contrast. Lumbar Puncture Fluoroscopy 10/16/18 10:42 CONCLUSION: 1. Uncomplicated fluoroscopically guided lumbar puncture. Abdomen/Bladder Ultrasound 10/23/18 00:00 CONCLUSION: 1. Mild increased echogenicity of the kidneys bilaterally which can suggest underlying medical renal disease. 2. 1.8 cm complex cyst at the right mid kidney. This is a Bosniak 2F lesion and should be followed. 3. Minimal fullness of the right renal pelvis without dilatation of the calyces. Conklin Line Insertion 10/23/18 00:00 CONCLUSION: 1. Uncomplicated Conklin catheter placement as above. Discharge Plan - Discharge Disposition Patient Disposition: 61 Rehab Inpatient - Discharge Condition Condition: Stable - Discharge Order Discharge Orders: Discharge Order (Routine); Ordered 10/24/18 Ordered By: Amy Fragoso - Physicians Team Primary Care Provider: Nancy Chou Attending Provider: Bridget Sawyer Other Providers: Oliva Green MD ; Vinicius Colvin ; Dc Silvestre MD ; Ajit López MD ; Suresh Hong MD ; Ani Mckeon MD ; Abi Fitzgerald MD ; [facility],[place] ; [facility],[place] ; Dano Taylor MD
--- NOTE | 2018-10-24 13:34 | P.PNNP ---
Subjective Interval history: Patient was seen, no distress. Caputo catheter was placed today. Urology was consulted for urinary retention. Patient to be discharged to rehab facility today. <Chary Hidalgo - Last Filed: 10/24/18 13:35> Physical Exam Vital signs: Vital Signs 10/23/18 16:25 10/23/18 16:40 10/23/18 16:55 Temperature 98.6 F Pulse Rate 95 H 73 86 Respiratory Rate 20 18 20 Blood Pressure 146/86 H 135/73 146/68 H Pulse Oximetry 93 L 95 96 10/23/18 20:00 10/24/18 00:00 10/24/18 03:48 Temperature 98.1 F 98.3 F Pulse Rate 86 81 Respiratory Rate 18 18 16 Blood Pressure 149/66 H 132/62 Pulse Oximetry 98 95 10/24/18 04:00 10/24/18 07:47 Temperature 98.1 F 98.8 F Pulse Rate 84 89 Respiratory Rate 18 20 Blood Pressure 126/58 L 133/63 Pulse Oximetry 94 L 95 Intake & Output 10/23/18 10/24/18 10/24/18 18:59 06:59 18:59 Intake Total 100 / 100 Output Total 600 / 600 Balance -500 / -500 Weight 119 kg Intake: IV 100 / 100 Rocephin Inj 2,000 MG In NS Inj 100 / 100 100 ML @ 200 mls/hr IV.SIG Q24H [facility] Rx#:[id number] Output: Urine 600 / 600 Other: Date of Last Bowel Movement 10/22/18 10/22/18 10/23/18 - Constitutional no acute distress - Routine HEENT Exam Head: Present: normocephalic Eye: Present: EOMI, PERRL ENT: Present: mucous membranes moist - Routine Neck Exam Present: trachea midline. Absent: JVD - Routine Respiratory Exam Absent: accessory muscle use, respiratory distress - Routine Cardiovascular Exam Present: RRR - Routine Abdominal Exam Present: soft. Absent: tenderness - Routine Extremities Exam Absent: cyanosis, clubbing - Routine Neurological Exam Present: alert - Routine Psychiatric Exam Present: normal affect - Urinary Catheter Management Indwelling Urethral Catheter Cath placed during this visit: yes Reason for continuing: Chronic Urinary Retention Insertion date: 10/23/18 Insertion time: 11:00 Straight Cath placed during this visit: yes Reason for continuing: Chronic Urinary Retention Insertion date: 10/22/18 Insertion time: 22:00 <Chary Hidalgo - Last Filed: 10/24/18 13:35> Vital signs: Vital Signs 10/24/18 00:00 10/24/18 03:48 10/24/18 04:00 Temperature 98.3 F 98.1 F Pulse Rate 81 84 Respiratory Rate 16 18 Blood Pressure 132/62 126/58 L Pulse Oximetry 95 94 L 10/24/18 07:47 Temperature 98.8 F Pulse Rate 89 Respiratory Rate 20 Blood Pressure 133/63 Pulse Oximetry 95 Intake & Output 10/24/18 10/24/18 10/25/18 06:59 18:59 06:59 Intake Total 100 / 100 Output Total 600 / 600 Balance -500 / -500 Weight 119 kg Intake: IV 100 / 100 Rocephin Inj 2,000 MG In NS Inj 100 / 100 100 ML @ 200 mls/hr IV.SIG Q24H [facility] Rx#:[id number] Output: Urine 600 / 600 Other: Date of Last Bowel Movement 10/22/18 10/23/18 - Urinary Catheter Management Indwelling Urethral Catheter Cath placed during this visit: no Straight Cath placed during this visit: no <Jared Huynh - Last Filed: 10/24/18 20:21> Assessment and Plan - Assessment (1) Chronic kidney disease (CKD) Code(s): N18.9 - Chronic kidney disease, unspecified Status: Acute Plan: Patient's renal function is currently at baseline. Avoid nephrotoxic agents. (2) Osteomyelitis Code(s): M86.9 - Osteomyelitis, unspecified Status: Acute Qualifiers: Osteomyelitis type: unspecified type Osteomyelitis location: unspecified site Qualified Code(s): M86.9 - Osteomyelitis, unspecified Plan: MRI done 10/09/18 which showed discitis at L3-L4. Patient is currently on Ceftriaxone. ID is following. (3) Hypertension Code(s): I10 - Essential (primary) hypertension Status: Acute Plan: Monitor BP. Patient on Hydralazine, Atenolol, Amlodipine, and Clonidine (prn). (4) Hypothyroidism Code(s): E03.9 - Hypothyroidism, unspecified Status: Acute Plan: Patient is on Synthroid. (5) Anemia Code(s): D64.9 - Anemia, unspecified Status: Acute Plan: 1 unit PRBC transfusion on 10/09/18. Monitor Hgb. Could be anemia of chronic kidney disease. On note review, gets Procrit. <Chary Hidalgo - Last Filed: 10/24/18 13:35> - Assessment (1) Chronic kidney disease (CKD) Code(s): N18.9 - Chronic kidney disease, unspecified Status: Chronic (2) Osteomyelitis Code(s): M86.9 - Osteomyelitis, unspecified Status: Acute Qualifiers: Osteomyelitis type: unspecified type Osteomyelitis location: unspecified site Qualified Code(s): M86.9 - Osteomyelitis, unspecified (3) Hypertension Code(s): I10 - Essential (primary) hypertension Status: Chronic (4) Hypothyroidism Code(s): E03.9 - Hypothyroidism, unspecified Status: Chronic Qualifiers: Hypothyroidism type: acquired Qualified Code(s): E03.9 - Hypothyroidism, unspecified (5) Anemia Code(s): D64.9 - Anemia, unspecified Status: Acute Qualifiers: Anemia type: folate deficiency - Attending Attestation patient was seen and examined. Agree with above assessment and plan. <Jared Huynh - Last Filed: 10/24/18 20:21>
== END 2018-10-24 12:37 ==
LOC: NEPD 16:18 → NEDA 21:07 → N05 22:58
PROVIDERS: ADMIT Family Medicine; ATTEND Family Medicine

== ENCOUNTER 2018-10-28 11:40 | Inpatient (IN) ==
[2018-10-28] MEDS ORDERED: Naloxone Inj 0.4 MG/ML Vial IV.PUSH PRN (11:52)
[2018-10-28] MEDS ORDERED: Acetaminophen 325 MG Tablet PO PRN (11:52)
[2018-10-28] MEDS ORDERED: Bisacodyl 10 MG Supp RECTAL PRN (11:52)
--- NOTE | 2018-10-28 12:11 | P.HP ---
History of Present Illness Service: [facility] Primary Care Physician: UNKNOWN History of Present Illness: Patient is a 62-year-old with a past medical history significant for hypertension, CKD and hypothyroidism presents to the emergency department for the evaluation of lower back pain. Patient had outpatient MRI done which shows possible osteomyelitis of L3-L4. Patient had leukocytosis with elevated ESR and CRP. Extensive workup was done with patient 10/05 CT a/p neg for iliopsoas abscess. 10/05 S/p CT guided bx with IR, cx with no growth. 10/09 Lumbar MRI of the spine showed changes consistent with discitis at L3-L4 without abscess. Diffuse degenerative changes without central canal stenosis. Potential left L3 neural foraminal impingement 10/[address] Discitis changes at L3/L4 again noted. The disc space narrowing and vertebral body endplate irregularity is mostly towards the left. No significant change from the prior MRI. No perceptible drainable fluid collection. 10/16 LP done CSF 40, RBC 5717, Glc 51, TP 47.5, VDRL - non reactive, HSV negative and Cx NGTD Infectious disease has been following the patient and placed patient on IV ceftriaxone end date 11/30/18 Neurosurgery also followed the patient, no surgical intervention recommended Patient's hospitalization was complicated by sepsis pneumonia, acute metabolic encephalopathy, patient was ruled out with meningeal encephalitis. Chest x-ray showed questionable subtle small infiltrate on the medial right upper lobe. Her metabolic encephalopathy possible from drug ingestion. CT of the head negative, no evidence of acute infarct hemorrhage or mass edema. Narcotics were held. Neurologist have seen the patient and started her on Risperdal and Restoril to help her sleep. Psychiatry has also followed the patient deeming her to have no capacity during the time of exam. She was started on Zyprexa but later discontinued. Patient currently has urinary retention and was started on bethanechol and Flomax. Gamboa catheter was inserted prior to coming to rehabilitation. Patient got admitted to [place] for comprehensive rehabilitation. Gamboa catheter was discontinued. Continues to have on and off urinary retention. 10/25/18 Patient was at [place] rehab and abnormality with the blood smear has been reported showing intracellular bacteria. Blood cultures were recommended. Blood cultures ordered Via Conklin, and peripherally. Blood cultures from the line showed positive for E. coli ESBL, gram-negative rods. Her IV antibiotics was switched to ertapenem. Patient continues to have on and off confusion, delirium. Psychiatry has seen the patient and increased her Risperdal. Patient will be admitted to inpatient transferred from [place] for Conklin catheter to be taken out due to bacteremia. Patient seen and examined today. Reports she is doing okay. Confused but more cooperative. Patient states it is 2018. Does not know what city or states she is at. States she is feeling a lot better. States she will participate with physical therapy. Denies SOB/ dyspnea. Denies chest pain, palpitations, headaches, dizziness. Denies fevers, chills, n/v/d. States she was catheterized last night she was full and has the urge to void but unable to. We will Possibly Pl[address] [place]oa catheter for now in the inpatient setting. Inpatient Certification: I certify that the inpatient services were ordered in accordance with Medicare regulations governing the order. This includes certification that hospital inpatient services are reasonable and necessary and in the case of services not specified as inpatient-only under 42 CFR 419.22(n), that they are appropriately provided as inpatient services in accordance to with the 2-midnight benchmark under 43 CFR 412.3(e) Estimated Total Length of Stay (Days): 3 Plans for Post Hospital Care: SNF Review of Systems All other systems reviewed negative except as stated in HPI PMFSH - History History Provided By: Patient, Family Member - Medical History Medical History: Medical History (Last Reviewed 10/28/18 @ 17:09 by ESSENCE Hawthorne) CKD (chronic kidney disease) Delirium Hodgkins lymphoma Hyperlipemia Hypertension Hypothyroidism - Surgical History Surgical History: Surgical History (Last Reviewed 10/28/18 @ 17:09 by ESSENCE Hawthorne) History of cholecystectomy History of knee replacement, total Hx of splenectomy Hx of thyroidectomy - Family History Family History: Family History (Last Reviewed 10/28/18 @ 17:09 by ESSENCE Hawthorne) Other Coronary artery disease - Social History I have reviewed the patient's Social History: Yes - Tobacco History Smoking Status: Former smoker Tobacco Type: Cigarettes Packs Per Day: 1 Years Smoked: 13 - Alcohol History How Often Do You Have a Drink Containing Alcohol: Monthly or less - Substance Use History Substance History: No History of Abuse Medications and Allergies Active Medications: Active Medications Acetaminophen (Tylenol) 650 mg PO Q4H PRN PRN Reason: Temp > 100.4, MICHEL, pain 1-3 Hydrocodone Bitart/Acetaminophen ([place] 5/325) 1 tab PO Q4H PRN PRN Reason: Pain Scale 5 To 10 Al Hydroxide/Mg Hydroxide (Milk Of Magnesia Liq) 30 ml PO Q12H PRN PRN Reason: Mild Constipation Amlodipine Besylate (Norvasc) 10 mg PO DAILY [facility] Atenolol (Tenormin) 75 mg PO DAILY [facility] Baclofen (Lioresal) 5 mg PO Q8HR [facility] Bethanechol Chloride (Urecholine) 10 mg PO TID [facility] Bisacodyl (Dulcolax Supp) 10 mg RECTAL DAILY PRN PRN Reason: SEVERE CONSITIPATION Calcitriol (Rocaltrol) 0.25 mcg PO DAILY [facility] Clonidine HCl (Catapres) 0.1 mg PO Q6H PRN PRN Reason: SBP>180 OR DBP >95 Cyanocobalamin (Vitamin B12) 1,000 mcg PO DAILY [facility] Hydralazine HCl (Apresoline) 25 mg PO TID [facility] Ertapenem 1,000 mg/ Sodium (Chloride) 100 mls @ 200 mls/hr IV.SIG Q24H [facility] Lactulose (Lactulose Liq) 30 ml PO DAILY PRN PRN Reason: SEVERE CONSITIPATION Levothyroxine Sodium (Synthroid) 25 mcg PO DAILY@0600 [facility] Levothyroxine Sodium (Synthroid) 112 mcg PO DAILY@0600 [facility] Lidocaine HCl (Lidoderm 5% Patch.12 Hr) 1 patch T-DERMAL DAILY [facility] Megestrol Acetate (Megace) 40 mg PO DAILY [facility] Miscellaneous (Pill Splitter) 1 each OTHER UNSCH [facility]DA Naloxone HCl (Narcan Inj) 0.4 mg IV.PUSH UNSCH PRN PRN Reason: SEE LABEL COMMENTS Ondansetron HCl (Zofran Inj) 4 mg IV.PUSH Q6H PRN PRN Reason: NAUSEA OR VOMITING Pantoprazole Sodium (Protonix) 20 mg PO BID [facility] Risperidone (Risperdal) 0.5 mg PO TID [facility] Senna/Docusate Sodium (Joyce-Colace) 1 tab PO BID [facility] Senna/Docusate Sodium (Joyce-Colace) 1 tab PO BID [facility] Sennosides (Senokot) 17.2 mg PO Q12H PRN PRN Reason: Moderate Constipation Sodium Chloride (Ns Flush) 2 ml IV.FLUSH BID [facility] Sodium Chloride (Ns Flush) 2 ml IV.FLUSH PRN PRN PRN Reason: FLUSH AFTER USING IV ACCESS Tamsulosin HCl (Flomax) 0.4 mg PO DAILY [facility] Temazepam (Restoril) 15 mg PO DAILY@2200 PRN PRN Reason: Insomnia Thiamine HCl (Vitamin B1) 100 mg PO BID [facility] Allergies Allergy/AdvReac Type Severity Reaction Status Date / Time doxycycline Allergy Severe Anaphylaxis Verified 10/24/18 13:12 sulfamethoxazole Allergy Severe Anaphylaxis Verified 10/24/18 13:12 trimethoprim Allergy Severe Anaphylaxis Verified 10/24/18 13:12 Home Medications Medication Instructions Recorded Confirmed Type amlodipine 10 mg PO DAILY 07/05/18 10/24/18 History calcitriol 0.25 mcg PO DAILY 07/05/18 10/24/18 History Exam Vital signs: Intake & Output 10/27/18 10/28/18 10/28/18 18:59 06:59 18:59 Weight 113.625 kg Narrative: GENERAL: This is an AF female patient, obese, NAD. SKIN: Warm and dry. HEENT: Normocephalic. Pupils equal round and reactive. Nose without bleeding. Airway patent. NECK: Trachea midline. CARDIOVASCULAR: Regular rate and rhythm without murmurs, gallops, or rubs. RESPIRATORY: Clear to auscultation. Breath sounds equal bilaterally. No wheezes , rales, or rhonchi. GASTROINTESTINAL: Abdomen soft, non-tender, nondistended. Bowel Sounds normoactive x4. MUSCULOSKELETAL: Extremities without clubbing, cyanosis, or edema. NEUROLOGICAL: Awake and alert. Moves all extremities, weak BLE. Confused. Caprini VTE Risk Assessment Caprini VTE Risk Assessment: Moderate/High Risk (score >= 2) Caprini Risk Assessment Model: Point Value = 1 Point Value = 2 Point Value = 3 Point Value = 5 Age 41-60 Minor surgery BMI > 25 kg/m2 Swollen legs Varicose veins or History of unexplained or recurrent spontaneous Oral contraceptives or hormone replacement Sepsis (< 1 month) Serious lung disease, including pneumonia (< 1 month) Abnormal pulmonary function Acute myocardial infarction Congestive heart failure (< 1 month) History of inflammatory bowel disease Medical patient at bed rest Age 61-74 Arthroscopic surgery Major open surgery (> 45 min) Laparoscopic surgery (> 45 min) Malignancy Confined to bed (> 72 hours) Immobilizing plaster cast Central venous access Age >= 75 History of VTE Family history of VTE Factor V Leiden Prothrombin [id number] Lupus anticoagulant Anticardiolipin antibodies Elevated serum homocysteine Heparin-induced thrombocytopenia Other congenital or acquired thrombophilia Stroke (< 1 month) Elective arthroplasty Hip, pelvis, or leg fracture Acute spinal cord injury (< 1 month) Prophylaxis Regimen: Total Risk Factor Score Risk Level Prophylaxis Regimen 0-1 Low Early ambulation 2 Moderate Order ONE of the following: *Sequential Compression Device (SCD) *Heparin 5000 units SQ BID 3-4 Higher Order ONE of the following medications: *Heparin 5000 units SQ TID *Enoxaparin/Lovenox 40 mg SQ daily (WT < 150 kg, CrCl > 30 mL/min) *Enoxaparin/Lovenox 30 mg SQ daily (WT < 150 kg, CrCl > 10-29 mL/min) *Enoxaparin/Lovenox 30 mg SQ BID (WT < 150 kg, CrCl > 30 mL/min) AND/OR *Sequential Compression Device (SCD) 5 or more Highest Order ONE of the following medications: *Heparin 5000 units SQ TID (Preferred with Epidurals) *Enoxaparin/Lovenox 40 mg SQ daily (WT < 150 kg, CrCl > 30 mL/min) *Enoxaparin/Lovenox 30 mg SQ daily (WT < 150 kg, CrCl > 10-29 mL/min) *Enoxaparin/Lovenox 30 mg SQ BID (WT < 150 kg, CrCl > 30 mL/min) AND *Sequential Compression Device (SCD) Assessment and Plan - Plan Patient is a 62-year-old female with a past medical history significant for hypertension, CKD and hypothyroidism who initially came to the hospital for complaints of lower back pain. Patient had outpatient MRI done which shows possible osteomyelitis of L3-L4. Patient had leukocytosis with elevated ESR and CRP. Extensive workup was done with patient. ESBL bacteremia. E. coli ESBL bacteremia -Continue with ertapenem. -Consult infectious disease for further evaluation. -Plan for Conklin removal, IR. Hold off any anticoagulants -F/u labs Encephalopathy, medication induced versus anxious process versus behavior Confusion, Irritable -? Infectious etiology vs behavioral/ delirium -Psychiatry and infectious disease consulted -Cont reassurance and reorientation -Psychiatry recommends increasing Risperdal 0.5 3 times daily -Calm and cooperative today Urine abnormal -Petra albicans greater than 10,000. We will not treat for now. L4-L5 discitis Outpatient MRI showed possible osteomyelitis L3-L4 -10/05 CT a/p neg for iliopsoas abscess. -10/05 S/p CT guided bx with IR, cx with no growth. -10/09 Lumbar MRI of the spine showed changes consistent with discitis at L3- L4 without abscess. Diffuse degenerative changes without central canal stenosis. Potential left L3 neural foraminal impingement -10/[address] Discitis changes at L3/L4 again noted. The disc space narrowing and vertebral body endplate irregularity is mostly towards the left. No significant change from the prior MRI. No perceptible drainable fluid collection. -10/16 LP done CSF 40, RBC 5717, Glc 51, TP 47.5, VDRL - non reactive, HSV negative and Cx NGTD -Previously followed by infectious disease, placed patient on IV ceftriaxone end date 11/30/18, Conklin catheter in place. -Neurosurgery also followed the patient, no surgical intervention recommended. -Continue with rehabilitation efforts PT/OT/ST by primary team. -Pain management with [place], baclofen 3 times daily with bowel regimen. Avoid increasing sedative/narcotics due to history of metabolic encephalopathy. -Reported abnormality with the smear, showing intracellular bacteria. Blood cultures recommended. -Blood cultures ordered Via Conklin, and peripherally. Blood cultures from the line showed positive for E. coli ESBL, gram-negative rods. -Notify infectious disease. Switch patient to IV ertapenem 1gm daily and DC ceftriaxone. -Repeat blood cultures after ertapenem dose done. This had been discussed with Dr. Green. She will follow up the patient. -WBC 13.7 -->11.4 --> 12.7 - trending up -Plan to discontinue Conklin catheter Poor PO intake -Continue to encourage -IVF for now. Monitor for overload Urinary retention -Continue bethanechol, Flomax -Gamboa catheter removed, monitor bladder scan -If continues with retention, consult urology -Insert gamboa, if needed Chronic kidney disease -Avoid nephrotoxic agent -Creatinine near baseline for patient -Monitor renal indicis Anemia, chronic Possibly from chronic disease -Monitor H&H. Hx of lymphoma s/p radiation therapy, in remission -Follow-up in the outpatient Hypertension/hypothyroidism -Continue home medications atenolol 50 mg daily, amlodipine 10 mg daily, hydralazine 25 mg 3 times daily -Synthroid 137 mcg daily -Monitor BP trend Poor appetite -Continue to encourage p.o. intake -Megace daily DVT prop SCDs, heparin CODE STATUS full code Code Status: CODE STATUS full code Discussed Condition With: Patient, nursing, Dr. Green, Dr. Alvares Discharge Planning: Plan to DC back to [place] or SNF when clinically improved.
--- NOTE | 2018-10-28 16:06 | P.CONID ---
History of Present Illness Service: Infectious Disease Consult date: 10/28/18 Requesting Physician: mAy Fragoso Reason for Consult: Evaluation and Mment of ESBL E coli bacteremia,Discitis Primary Care Provider: UNKNOWN History of Present Illness: Ms. Ontiveros is a 62-year-old -[place] female with past medical history significant for hypertension, chronic kidney disease who was not yet on hemodialysis prior to this admission. Patient's past medical history is also significant for recent admission on October 05 for evaluation of lower back pain. Patient had an MRI done as an outpatient which showed possible osteomyelitis of L3 and L4. She also had leukocytosis with elevated ESR and CRP during that visit and so she was sent to the hospital for further evaluation. Patient had an extensive workup during that admission and I saw her as well. She had a CT abdomen pelvis which was negative for an iliopsoas abscess. On October [address]-guided biopsy with IR cultures did not show any growth but patient was on IV Zosyn and vancomycin for several doses prior to this biopsy. On October 09 patient had another lumbar MRI spine which showed changes consistent with discitis at L3-L4 but again no abscess found. Diffuse degenerative changes without central canal stenosis was found and there was a potential left L3 neural foraminal impingement found on that imaging. On October 13 patient underwent a lumbar spine CT which again did not show any new or drainable fluid collections. On October 16 due to persistent altered mental status patient underwent an LP which showed WBC 40, RBCs 5717, glucose 51, total protein 47.5, VDRL nonreactive and cultures no growth to date. Patient was placed on IV ceftriaxone with end date planned for November 30, 2018. Neurosurgery has evaluated the patient during last admission and there was no plan for any surgical intervention. Due to her diagnosis of CKD nephrology recommended no PICC line and Conklin catheter was placed for IV antibiotic infusions. Patient was subsequently transferred to [facility]. While at [facility] patient had WBC which showed some intracellular bacteria and therefore blood cultures were recommended. Blood cultures ordered were from the Conklin and peripherally and and at this time 3 out of 4 cultures are positive for ESBL E. coli. Patient was started on ertapenem IV and has continued to do well her mentation is improved. Psychiatry has seen the patient and increased her Risperdal. I was called by the hospitalist service and recommended the patient be transferred to the main hospital for removal of the Conklin catheter which is likely the source of the infection and continuing IV ertapenem. Repeat blood cultures have been ordered and so far negative at the present time. At the time of my visit patient was sitting on a body at the bedside and wiping herself. Patient second catheter tubing was touching the patient's and. Infectious diseases consulted for evaluation and management of E. coli ESBL bacteremia, and infective discitis. Review of Systems All other systems reviewed negative except as stated in HPI PMFSH - History History Provided By: Patient, Family Member - Medical History Medical History: Medical History (Last Updated 10/25/18 @ 09:16 by ESSENCE Hawthorne) CKD (chronic kidney disease) Delirium Hodgkins lymphoma Hyperlipemia Hypertension Hypothyroidism - Surgical History Surgical History: Surgical History (Last Reviewed 10/25/18 @ 09:16 by ESSENCE Hawthorne) History of cholecystectomy History of knee replacement, total Hx of splenectomy Hx of thyroidectomy - Family History Family History: Family History (Last Reviewed 10/25/18 @ 09:16 by ESSENCE Hawthorne) Other Coronary artery disease - Tobacco History Second Hand Smoke Exposure: No Smoking Status: Former smoker Tobacco Type: Cigarettes Packs Per Day: 1 Years Smoked: 13 - Alcohol History How Often Do You Have a Drink Containing Alcohol: Monthly or less - Substance Use History Substance History: No History of Abuse Medications and Allergies Active Medications: Active Medications Acetaminophen (Tylenol) 650 mg PO Q4H PRN PRN Reason: Temp > 100.4, MICHEL, pain 1-3 Hydrocodone Bitart/Acetaminophen ([place] 5/325) 1 tab PO Q4H PRN PRN Reason: Pain Scale 5 To 10 Al Hydroxide/Mg Hydroxide (Milk Of Barbi Liq) 30 ml PO Q12H PRN PRN Reason: Mild Constipation Amlodipine Besylate (Norvasc) 10 mg PO DAILY [facility] Atenolol (Tenormin) 75 mg PO DAILY [facility] Baclofen (Lioresal) 5 mg PO Q8HR [facility] Bethanechol Chloride (Urecholine) 10 mg PO TID [facility] Bisacodyl (Dulcolax Supp) 10 mg RECTAL DAILY PRN PRN Reason: SEVERE CONSITIPATION Calcitriol (Rocaltrol) 0.25 mcg PO DAILY [facility] Clonidine HCl (Catapres) 0.1 mg PO Q6H PRN PRN Reason: SBP>180 OR DBP >95 Cyanocobalamin (Vitamin B12) 1,000 mcg PO DAILY [facility] Hydralazine HCl (Apresoline) 25 mg PO TID [facility] Ertapenem 1,000 mg/ Sodium (Chloride) 100 mls @ 200 mls/hr IV.SIG Q24H [facility] Lactulose (Lactulose Liq) 30 ml PO DAILY PRN PRN Reason: SEVERE CONSITIPATION Levothyroxine Sodium (Synthroid) 25 mcg PO DAILY@0600 [facility] Levothyroxine Sodium (Synthroid) 112 mcg PO DAILY@0600 [facility] Lidocaine HCl (Lidoderm 5% Patch.12 Hr) 1 patch T-DERMAL DAILY [facility] Megestrol Acetate (Megace) 40 mg PO DAILY [facility] Miscellaneous (Pill Splitter) 1 each OTHER UNSCH [facility] Naloxone HCl (Narcan Inj) 0.4 mg IV.PUSH UNSCH PRN PRN Reason: SEE LABEL COMMENTS Ondansetron HCl (Zofran Inj) 4 mg IV.PUSH Q6H PRN PRN Reason: NAUSEA OR VOMITING Pantoprazole Sodium (Protonix) 20 mg PO BID [facility] Patch Removal (Remove Old Patch) 1 each T-DERMAL HS [facility] Risperidone (Risperdal) 0.5 mg PO TID [facility] Senna/Docusate Sodium (Joyce-Colace) 1 tab PO BID [facility] Senna/Docusate Sodium (Joyce-Colace) 1 tab PO BID [facility] Sennosides (Senokot) 17.2 mg PO Q12H PRN PRN Reason: Moderate Constipation Sodium Chloride (Ns Flush) 2 ml IV.FLUSH BID [facility] Sodium Chloride (Ns Flush) 2 ml IV.FLUSH PRN PRN PRN Reason: FLUSH AFTER USING IV ACCESS Tamsulosin HCl (Flomax) 0.4 mg PO DAILY [facility] Temazepam (Restoril) 15 mg PO DAILY@2200 PRN PRN Reason: Insomnia Thiamine HCl (Vitamin B1) 100 mg PO BID [facility] Allergies Allergy/AdvReac Type Severity Reaction Status Date / Time doxycycline Allergy Severe Anaphylaxis Verified 10/24/18 13:12 sulfamethoxazole Allergy Severe Anaphylaxis Verified 10/24/18 13:12 trimethoprim Allergy Severe Anaphylaxis Verified 10/24/18 13:12 Home Medications Medication Instructions Recorded Confirmed Type amlodipine 10 mg PO DAILY 07/05/18 10/24/18 History calcitriol 0.25 mcg PO DAILY 07/05/18 10/24/18 History Exam Vital signs: Intake & Output 10/27/18 10/28/18 10/28/18 18:59 06:59 18:59 Weight 113.625 kg Narrative: GENERAL: Well-nourished well-developed, not in acute distress SKIN: Cool and dry, no generalized rash HEAD: Atraumatic. Normocephalic. No temporal or scalp tenderness. EYES: Pupils equal round and reactive. Scleral icterus. No injection or drainage. No petechia ENT: Nothing abnormal detected NECK: Trachea midline. Supple, nontender, no meningeal signs. CARDIOVASCULAR: HS audible. RESPIRATORY: Clear to auscultation bilaterally. GASTROINTESTINAL: Obese, abdomen soft nontender. MUSCULOSKELETAL: Extremities without clubbing, cyanosis. NEUROLOGICAL: Alert oriented 3. Nonfocal. Psych cooperative IV line sites ok. Conklin catheter site with no obvious infection. Assessment and Plan - Plan ESBL E.coli bacteremia likely H[place] catheter infection Discitis was on IV antibiotics using [place] catheter. CKD not on Hemodialysis yet. Delirium off and on s/b psych Recs: Continue Ertapenem IV (ESBL bacteremia) Recommend removal of Conklin catheter if ok with Nephrology. IR consult for Conklin cath removal. MRI L spine without contrast to follow up on Discitis. Check CRP Check CBC with diff, CMP Dw Hepas hold all blood thinners Contact isolation for ESBL. IR consult for removal of Conklin catheter. Follow cultures follow clinical course.
[2018-10-28] MEDS: hydrALAZINE 25 MG Tablet PO SCH ×2 (17:00→17:02)
[2018-10-28] MEDS: Baclofen 10 MG Tablet PO SCH ×2 (17:01→22:21)
[2018-10-28] MEDS: Pantoprazole Sodium 20 MG DR Tablet PO SCH (20:45)
[2018-10-28] MEDS: Senna/Docusate Sodium 8.6/50 MG Tablet PO SCH ×2 (20:45→20:46)
[2018-10-28] MEDS: Temazepam 15 MG Capsule PO PRN (22:21)
[2018-10-29] MEDS: Baclofen 10 MG Tablet PO SCH ×3 (05:39→21:33)
[2018-10-29] MEDS: Levothyroxine 112 MCG Tablet PO SCH (05:39)
[2018-10-29 06:42] LABS: Hematocrit 21.1 % (35.0-46.0); Hemoglobin 7.1 gm/dL (11.6-15.3); Mean Corpuscular HGB Conc 33.8 % (32.0-36.0); Mean Corpuscular Volume 94.8 fL (80.0-100.0); Mean Platelet Volume 11.1 fL (7.0-11.0); Platelet Count 163 th/mm3 (150-450); Red Blood Count 2.22 mil/mm3 (4.00-5.30); White Blood Count 10.2 th/mm3 (4.0-11.0)
[2018-10-29 07:05] LABS: Albumin 2.1 g/dL (3.4-5.0); Anion Gap 6 meq/L (5-15); Aspartate Aminotransferase 17 U/L (15-37); Blood Urea Nitrogen 27 mg/dL (7-18); Calcium 9.1 mg/dL (8.5-10.1); Carbon Dioxide 27.5 meq/L (21.0-32.0); Chloride 108 meq/L (98-107); Glomerular Filtration Rate 33 mL/min (>89); Glucose,Random 79 mg/dL (74-106); Potassium 3.3 meq/L (3.5-5.1); Sodium 141 meq/L (136-145)
[2018-10-29 07:06] LABS: Alanine Aminotransferase 9 U/L (10-53)
[2018-10-29 07:08] LABS: Alkaline Phosphatase 63 U/L (45-117); Total Protein 7.5 g/dL (6.4-8.2)
[2018-10-29 07:21] LABS: Eosinophils 3 % (0-4); Lymphocytes 28 % (9-44); Monocytes 6 % (0-8); Tallied Nucleated RBC 1 (0-0)
[2018-10-29 07:22] LABS: Platelet Estimate Normal (Normal); Target Cells 1+
[2018-10-29] MEDS: Calcitriol 0.25 MCG Capsule PO SCH (09:43)
[2018-10-29] MEDS: Atenolol 25 MG Tablet PO SCH (09:43)
[2018-10-29] MEDS: hydrALAZINE 25 MG Tablet PO SCH ×3 (09:44→17:33)
[2018-10-29] MEDS: amLODIPine 10 MG Tablet PO SCH (09:44)
[2018-10-29] MEDS: Senna/Docusate Sodium 8.6/50 MG Tablet PO SCH ×5 (09:44→21:38)
[2018-10-29] MEDS: Lidocaine 5% Patch T-DERMAL SCH (09:45)
[2018-10-29] MEDS: Pantoprazole Sodium 20 MG DR Tablet PO SCH ×2 (09:45→21:32)
--- NOTE | 2018-10-29 14:01 | IR ---
EXAM DATE: 10/29/2018 10:52 AM EST AGE/SEX: 62 years / Female INDICATIONS: Patient presents with Tunneled Central Venous Catheter in need of removal due to possib le infection. CLINICAL DATA: This is the patient's subsequent encounter. Patient reports that signs and symptoms h ave been present for 1 week and indicates a pain score of 0/10. MEDICAL/SURGICAL HISTORY: . Chronic Kidney Disease, Delirium, Hodgkins Lymphoma, Hyperlipidemi a, Hypertension, Hypothyroidism . Cholecystectomy, Total Knee Replacement, Splenectomy, Thyroidectom y. COMPARISON: No prior exams available for comparison. IMAGE SERIES: ACCESS SITE: . . PROCEDURE: 1. PermaCath removal. The risks, benefits and alternatives to the procedure were explained and verbal and written consent w as obtained. The site was prepped in sterile fashion. Full sterile technique was used, including ca p, mask, sterile gloves and gown and a large sterile sheet. Hand hygiene and 2% chlorhexidine and/or betadine/alcohol prep was utilized per protocol for cutaneous antisepsis. The skin and subcutaneous tissues were infiltrated with local anesthetic solution. The tract was anesthetized with 1% Lidocaine using. The Permcath was dissected from the subcutaneous tissues and easily removed in one piece. Manual pressure was applied to the venotomy site until hem ostasis was obtained. Sterile dressing was applied. The patient tolerated the procedure well and there were no complications. CONCLUSION: 1. Uncomplicated Permcath removal. Electronically signed by: Ajit Bell MD 10/29/2018 2:00 PM EST
--- NOTE | 2018-10-29 16:17 | P.PNIM ---
Subjective Interval history: Patient reprots she is feeling much better today. She is alert and oriented and was able to hold a normal conversation. No fevers. Conklin catheter removed. Physical Exam Vital signs: Last Vital Signs Temp 98.2 F 10/29/18 12:00 Pulse 96 H 10/29/18 12:00 Resp 17 10/29/18 12:00 BP 120/57 L 10/29/18 12:00 Pulse Ox 95 10/29/18 12:00 Intake & Output 10/27/18 10/28/18 10/29/18 10/30/18 06:59 06:59 06:59 06:59 Intake Total 100 / 100 Output Total 0 / 0 Balance 100 / 100 Weight 119 kg Narrative: GENERAL: Obese elderly female in no acute distress. SKIN: Warm and dry. HEENT: Normocephalic. Pupils equal round and reactive. Nose without bleeding. Airway patent. CARDIOVASCULAR: Normal rate and regular rhythm without murmurs, gallops, or rubs. RESPIRATORY: Clear to auscultation. Breath sounds equal bilaterally. No wheezes , rales, or rhonchi. GASTROINTESTINAL: Abdomen soft, non-tender, nondistended. Bowel Sounds normoactive x4. MUSCULOSKELETAL: Extremities without clubbing, cyanosis, or edema. NEUROLOGICAL: Awake and alert. Oriented X4. Moves all extremities, generalized weakness. Results Labs CBC & Chem 7: 10/29/18 06:15 10/29/18 06:15 Imaging Imaging: Impressions Tube Removal 10/29/18 00:00 CONCLUSION: 1. Uncomplicated Permcath removal. Assessment and Plan Plan 62-year-old female with a past medical history significant for hypertension, CKD and hypothyroidism who initially came to the hospital for complaints of lower back pain. Patient had outpatient MRI done which shows possible osteomyelitis of L3-L4. Patient was eventually discharged to [facility] on treatment for discitis using IV antibiotics. She had a change in mental status at [facility] and is found to have ESBL bacteremia. A Conklin catheter was being used. Patient readmitted to the medical floor for treatment. Encephalopathy currently resolved. ESBL E.coli bacteremia: likely Hickmann catheter infection Discitis was being treated with IV antibiotics using Hickmann catheter. - Appreciate input from ID. s/p removal of Conklin catheter. Per ID if repeat blood cultures remain negative, patient will need new catheter to complete 6 weeks of antibiotics for discitis. - MRI spine per ID. Encephalopathy, medication induced versus anxious process versus behavior. Improved today -? Infectious etiology vs behavioral/ delirium -Psychiatry consulted -Cont reassurance and reorientation -Psychiatry recommends increasing Risperdal 0.5 3 times daily -Calm and cooperative today Urinary retention -Continue bethanechol, Flomax -Gamboa catheter removed, monitor bladder scan -If continues with retention, consult urology -Insert gamboa, if needed Chronic kidney disease -Avoid nephrotoxic agent -Creatinine near baseline for patient -Monitor renal indicis Anemia, chronic Possibly from chronic disease - Worse today. Follow closely. Will plan to transfuse for Hgb <7 -Monitor H&H. Hx of lymphoma s/p radiation therapy, in remission -Follow-up in the outpatient Hypertension/hypothyroidism -Continue home medications atenolol 50 mg daily, amlodipine 10 mg daily, hydralazine 25 mg 3 times daily -Synthroid 137 mcg daily -Monitor BP trend DVT prop SCDs, heparin CODE STATUS full code Discharge Planning: Consult rehab Medicine. Once cleared by ID, can probably return to [facility]. Progress Note: Quality VTE Deep Vein Thrombosis/Pulmonary Embolism Present on Admission: No
--- NOTE | 2018-10-29 16:59 | P.PNID ---
Subjective Remarks: Ms. Ontiveros is a 62-year-old -Spanish female with past medical history significant for hypertension, chronic kidney disease who was not yet on hemodialysis prior to this admission. Patient's past medical history is also significant for recent admission on October 05 for evaluation of lower back pain. Patient had an MRI done as an outpatient which showed possible osteomyelitis of L3 and L4. She also had leukocytosis with elevated ESR and CRP during that visit and so she was sent to the hospital for further evaluation. Patient had an extensive workup during that admission and I saw her as well. She had a CT abdomen pelvis which was negative for an iliopsoas abscess. On October [address]-guided biopsy with IR cultures did not show any growth but patient was on IV Zosyn and vancomycin for several doses prior to this biopsy. On October 09 patient had another lumbar MRI spine which showed changes consistent with discitis at L3-L4 but again no abscess found. Diffuse degenerative changes without central canal stenosis was found and there was a potential left L3 neural foraminal impingement found on that imaging. On October 13 patient underwent a lumbar spine CT which again did not show any new or drainable fluid collections. On October 16 due to persistent altered mental status patient underwent an LP which showed WBC 40, RBCs 5717, glucose 51, total protein 47.5, VDRL nonreactive and cultures no growth to date. Patient was placed on IV ceftriaxone with end date planned for November 30, 2018. Neurosurgery has evaluated the patient during last admission and there was no plan for any surgical intervention. Due to her diagnosis of CKD nephrology recommended no PICC line and Conklin catheter was placed for IV antibiotic infusions. [facility] was [facility]. While at [facility] patient had WBC which showed some intracellular bacteria and therefore blood cultures were recommended. Blood cultures ordered were from the Conklin and peripherally and and at this time 3 out of 4 cultures are positive for ESBL E. coli. Patient was started on ertapenem IV and has continued to do well her mentation is improved. Psychiatry has seen the patient and increased her Risperdal. I was called by the hospitalist service and recommended the patient be transferred to the main hospital for removal of the Conklin catheter which is likely the source of the infection and continuing IV ertapenem. Repeat blood cultures have been ordered and so far negative at the present time. At the time of my visit patient was sitting on a body at the bedside and wiping herself. Patient second catheter tubing was touching the patient's and. Infectious diseases consulted for evaluation and management of E. coli ESBL bacteremia, and infective discitis. Overnight events reviewed. No fever No rash No diarrhea Antibiotics: ertapenem IV Lines: Lines ok Past Medical History: reviewed. Allergies/Adverse Reactions: Allergies doxycycline Allergy (Severe, Verified 10/24/18 13:12) Anaphylaxis sulfamethoxazole Allergy (Severe, Verified 10/24/18 13:12) Anaphylaxis trimethoprim Allergy (Severe, Verified 10/24/18 13:12) Anaphylaxis Objective Vital Signs 10/28/18 20:00 10/29/18 00:00 10/29/18 04:00 Temperature 98.8 F 98.8 F 98.1 F Pulse Rate 102 H 92 H 96 H Respiratory Rate 18 14 17 Blood Pressure 106/66 128/72 143/62 H Pulse Oximetry 97 98 93 L 10/29/18 08:00 10/29/18 11:44 10/29/18 12:00 Temperature 98.3 F 98.2 F Pulse Rate 100 H 96 H Respiratory Rate 18 17 Blood Pressure 104/56 L 120/57 L Pulse Oximetry 96 96 95 Intake & Output 10/28/18 10/29/18 10/29/18 18:59 06:59 18:59 Intake Total 100 / 100 Output Total 0 / 0 Balance 100 / 100 0 / 0 Weight 113.625 kg 119 kg Intake: IV 100 / 100 INVanz Inj 1,000 MG In NS Inj 100 / 100 100 ML @ 200 mls/hr IV.SIG Q24H REPLACED BY [facility] Rx#:[id number] Output: Urine 0 / 0 Other: Weight On Admission 119 kg Lab - Hematology Results 10/29/18 06:15 WBC 10.2 RBC 2.22 L Hgb 7.1 L Hct 21.1 L MCV 94.8 MCH 32.0 MCHC 33.8 RDW 17.0 Plt Count 163 MPV 11.1 H Prelim Diff (Auto) Manual diff required WBC Differential Manual diff final Seg Neuts % (Manual) 59 Band Neuts % (Manual) 4 Lymphocytes % (Manual) 28 Monocytes % (Manual) 6 Eosinophils % (Manual) 3 Abs Neuts (Manual) 6.4 Nucleated RBCs/100 WBC 1 H Differential Comment . Platelet Estimate Normal Platelet Morphology Giant H Target Cells 1+ H Lab - Chemistry Results 10/29/18 06:15 Sodium 141 Potassium 3.3 L Chloride 108 H Carbon Dioxide 27.5 Anion Gap 6 BUN 27 H Creatinine 1.85 H Estimated GFR 33 L Random Glucose 79 Calcium 9.1 Total Bilirubin 0.2 AST 17 ALT 9 L Alkaline Phosphatase 63 C-Reactive Protein 3.60 H Total Protein 7.5 D Albumin 2.1 L Imaging: ITS Impressions Tube Removal 10/29/18 00:00 CONCLUSION: 1. Uncomplicated Permcath removal. Physical Exam: GENERAL: Well-nourished well-developed, not in acute distress SKIN: Cool and dry, no generalized rash HEAD: Atraumatic. Normocephalic. No temporal or scalp tenderness. EYES: Pupils equal round and reactive. Scleral icterus. No injection or drainage. No petechia ENT: Nothing abnormal detected NECK: Trachea midline. Supple, nontender, no meningeal signs. CARDIOVASCULAR: HS audible. RESPIRATORY: Clear to auscultation bilaterally. GASTROINTESTINAL: Obese, abdomen soft nontender. MUSCULOSKELETAL: Extremities without clubbing, cyanosis. NEUROLOGICAL: Alert oriented 3. Nonfocal. Psych cooperative IV line sites ok. Assessment and Plan - Plan ESBL E.coli bacteremia likely Hickmann catheter infection Discitis was on IV antibiotics using Hickmann catheter. CKD not on Hemodialysis yet. Delirium off and on s/b psych Recs: Continue Ertapenem IV (ESBL bacteremia) s/p removal of Conklin catheter. If blood cultures remain negative patient will need reinsertion of Conklin cath to complete 6 weeks of IV antibiotics for discitis. Check MRI L spine without contrast to follow up on Discitis. Contact isolation for ESBL. Follow cultures follow clinical course. I will be OOT from 10/30/2018 to 11/04/2018. Other ID MDs to cover for me.
[2018-10-29] MEDS: Temazepam 15 MG Capsule PO PRN (22:46)
[2018-10-30] MEDS ORDERED: fentaNYL Citrate Inj 100 MCG/2 ML Ampul ONE (01:47)
[2018-10-30] MEDS ORDERED: Morphine Inj 4 MG/ML Vial ONE (01:47)
[2018-10-30] MEDS: Baclofen 10 MG Tablet PO SCH ×3 (05:33→21:56)
[2018-10-30] MEDS: Levothyroxine 112 MCG Tablet PO SCH (05:34)
[2018-10-30] MEDS ORDERED: Sodium Chlor 0.9% Inj 500 ML IV.SIG SCH (06:00)
[2018-10-30 06:27] LABS: Calcium 9.1 mg/dL (8.5-10.1); Potassium 3.5 meq/L (3.5-5.1)
[2018-10-30 06:42] LABS: Hematocrit 21.6 % (35.0-46.0); Hemoglobin 7.3 gm/dL (11.6-15.3); Mean Corpuscular HGB Conc 33.8 % (32.0-36.0); Mean Corpuscular Hemoglobin 32.1 pg (27.0-34.0); Mean Platelet Volume 12.2 fL (7.0-11.0); Platelet Count 159 th/mm3 (150-450); Red Blood Count 2.27 mil/mm3 (4.00-5.30); Red Cell Distribution Width 16.7 % (11.6-17.2)
[2018-10-30] MEDS: Calcitriol 0.25 MCG Capsule PO SCH (09:44)
[2018-10-30] MEDS: Atenolol 25 MG Tablet PO SCH (09:46)
[2018-10-30] MEDS: amLODIPine 10 MG Tablet PO SCH (09:46)
[2018-10-30] MEDS: hydrALAZINE 25 MG Tablet PO SCH ×3 (09:47→18:08)
[2018-10-30] MEDS: Pantoprazole Sodium 20 MG DR Tablet PO SCH ×2 (09:47→20:07)
[2018-10-30] MEDS: Lidocaine 5% Patch T-DERMAL SCH (09:48)
[2018-10-30] MEDS: Senna/Docusate Sodium 8.6/50 MG Tablet PO SCH ×4 (09:49→20:08)
--- NOTE | 2018-10-30 14:28 | P.PNIM ---
Physical Exam Vital signs: Last Vital Signs Temp 98.3 F 10/30/18 12:00 Pulse 90 10/30/18 12:00 Resp 18 10/30/18 12:00 BP 128/59 L 10/30/18 12:00 Pulse Ox 96 10/30/18 12:00 Intake & Output 10/28/18 10/29/18 10/30/18 10/31/18 06:59 06:59 06:59 06:59 Intake Total 100 / 100 1460 / 1460 900 / 900 Output Total 0 / 0 500 / 500 Balance 100 / 100 960 / 960 900 / 900 Weight 119 kg 119.2 kg Narrative: GENERAL: Obese elderly female in no acute distress. SKIN: Warm and dry. CARDIOVASCULAR: Normal rate and regular rhythm without murmurs, gallops, or rubs. RESPIRATORY: Clear to auscultation. Breath sounds equal bilaterally. No wheezes , rales, or rhonchi. GASTROINTESTINAL: Abdomen soft, obese, non-tender, nondistended. Bowel Sounds normoactive x4. MUSCULOSKELETAL: Extremities without clubbing, cyanosis, trace to 1+ edema NEUROLOGICAL: Awake and alert to person place and time. Moves all extremities, generalized weakness. Results Labs CBC & Chem 7: 10/30/18 05:15 10/30/18 05:15 Assessment and Plan Plan 62-year-old female with a past medical history significant for hypertension, CKD and hypothyroidism who initially came to the hospital for complaints of lower back pain. Patient had outpatient MRI done which shows possible osteomyelitis of L3-L4. Patient was eventually discharged to [facility] on treatment for discitis using IV antibiotics. She had a change in mental status at [facility] and is found to have ESBL bacteremia. A Conklin catheter was being used. Patient readmitted to the medical floor for treatment. Encephalopathy currently resolved. ESBL E.coli bacteremia: likely Hickmann catheter infection Discitis was being treated with IV antibiotics using Hickmann catheter. - Appreciate input from ID. s/p removal of Conklin catheter. Per ID if repeat blood cultures remain negative, patient will need new catheter to complete 6 weeks of IV Invanz antibiotics for discitis. - MRI spine without contrast to followup with discitis per ID. MRI on 10/09 reviewed. Encephalopathy, medication induced versus anxious process versus behavior. Improved -? Infectious etiology vs behavioral/ delirium -Psychiatry consulted -Continue reassurance and reorientation -Psychiatry recommends increasing Risperdal 0.5 3 times daily -Calm and cooperative today Urinary retention -Continue bethanechol, Flomax -Gamboa catheter removed, monitor bladder scan -If continues with retention, consult urology -Insert gamboa, if needed Chronic kidney disease stage 3 -Avoid nephrotoxic agent -Creatinine near baseline for patient -Monitor renal indicis Anemia, chronic due to CKD - Worse today. Follow closely. Will plan to transfuse for Hgb <7 -Monitor H&H. 7.3 hb stable Hx of lymphoma s/p radiation therapy, in remission -Follow-up in the outpatient Hypertension/hypothyroidism -Continue home medications atenolol 50 mg daily, amlodipine 10 mg daily, hydralazine 25 mg 3 times daily -Synthroid 137 mcg daily -Monitor BP trend DVT prop SCDs, heparin Discharge Planning: Consult rehab Medicine. Once cleared by ID, can probably return to [facility]. Progress Note: Quality VTE Deep Vein Thrombosis/Pulmonary Embolism Present on Admission: No
[2018-10-30] MEDS: Temazepam 15 MG Capsule PO PRN (21:45)
[2018-10-31] MEDS: Levothyroxine 112 MCG Tablet PO SCH (06:15)
[2018-10-31] MEDS: Baclofen 10 MG Tablet PO SCH ×3 (06:15→22:59)
[2018-10-31] MEDS: Calcitriol 0.25 MCG Capsule PO SCH (08:44)
[2018-10-31] MEDS: Lidocaine 5% Patch T-DERMAL SCH (08:44)
[2018-10-31] MEDS: Pantoprazole Sodium 20 MG DR Tablet PO SCH ×2 (08:45→22:59)
[2018-10-31] MEDS: Atenolol 50 MG Tablet PO SCH (08:45)
[2018-10-31] MEDS: hydrALAZINE 25 MG Tablet PO SCH ×3 (08:45→17:35)
[2018-10-31] MEDS: amLODIPine 10 MG Tablet PO SCH ×2 (08:45→12:29)
[2018-10-31] MEDS: Senna/Docusate Sodium 8.6/50 MG Tablet PO SCH ×3 (08:46→22:59)
--- NOTE | 2018-10-31 11:07 | P.PNID ---
Subjective Remarks: ID Coverage Ms. Ontiveros is a 62-year-old -Togolese female with past medical history significant for hypertension, chronic kidney disease who was not yet on hemodialysis prior to this admission. Patient's past medical history is also significant for recent admission on October 05 for evaluation of lower back pain. Patient had an MRI done as an outpatient which showed possible osteomyelitis of L3 and L4. She also had leukocytosis with elevated ESR and CRP during that visit and so she was sent to the hospital for further evaluation. Patient had an extensive workup during that admission and I saw her as well. She had a CT abdomen pelvis which was negative for an iliopsoas abscess. On October [address]-guided biopsy with IR cultures did not show any growth but patient was on IV Zosyn and vancomycin for several doses prior to this biopsy. On October 09 patient had another lumbar MRI spine which showed changes consistent with discitis at L3-L4 but again no abscess found. Diffuse degenerative changes without central canal stenosis was found and there was a potential left L3 neural foraminal impingement found on that imaging. On October 13 patient underwent a lumbar spine CT which again did not show any new or drainable fluid collections. On October 16 due to persistent altered mental status patient underwent an LP which showed WBC 40, RBCs 5717, glucose 51, total protein 47.5, VDRL nonreactive and cultures no growth to date. Patient was placed on IV ceftriaxone with end date planned for November 30, 2018. Neurosurgery has evaluated the patient during last admission and there was no plan for any surgical intervention. Due to her diagnosis of CKD nephrology recommended no PICC line and Conklin catheter was placed for IV antibiotic infusions. [facility] While at [facility] patient had WBC which showed some intracellular bacteria and therefore blood cultures were recommended. Blood cultures ordered were from the Conklin and peripherally and and at this time 3 out of 4 cultures are positive for ESBL E. coli. Patient was started on ertapenem IV and has continued to do well her mentation is improved. Psychiatry has seen the patient and increased her Risperdal. I was called by the hospitalist service and recommended the patient be transferred to the main hospital for removal of the Conklin catheter which is likely the source of the infection and continuing IV ertapenem. Repeat blood cultures have been ordered and so far negative at the present time. Infectious diseases consulted for evaluation and management of E. coli ESBL bacteremia, and infective discitis. Notes reviewed Temps ok Did not sleep well last night C/O dizziness - earlier, better No rash No diarrhea Fup BC all negative Antibiotics: ertapenem IV Lines: Lines ok Past Medical History: reviewed. Allergies/Adverse Reactions: Allergies doxycycline Allergy (Severe, Verified 10/24/18 13:12) Anaphylaxis sulfamethoxazole Allergy (Severe, Verified 10/24/18 13:12) Anaphylaxis trimethoprim Allergy (Severe, Verified 10/24/18 13:12) Anaphylaxis Objective Vital Signs 10/30/18 12:00 10/30/18 16:00 10/30/18 17:23 Temperature 98.3 F 98.6 F Pulse Rate 90 103 H Respiratory Rate 18 18 Blood Pressure 128/59 L 126/62 Pulse Oximetry 96 97 96 10/30/18 20:00 10/31/18 00:00 10/31/18 04:00 Temperature 98.2 F 98.4 F 98.6 F Pulse Rate 98 H 99 H 97 H Respiratory Rate 17 18 19 Blood Pressure 162/71 H 144/63 H 134/61 Pulse Oximetry 96 94 L 94 L 10/31/18 08:00 Temperature 97.9 F Pulse Rate 107 H Respiratory Rate 18 Blood Pressure 119/57 L Pulse Oximetry 98 Intake & Output 10/30/18 10/31/18 10/31/18 18:59 06:59 18:59 Intake Total 1500 / 1500 120 / 120 Output Total 901 / 901 Balance 599 / 599 120 / 120 Weight 117 kg Intake: IV 600 / 600 INVanz Inj 1,000 MG In NS Inj 100 / 100 100 ML @ 200 mls/hr IV.SIG Q24H [facility] Rx#:[id number] NS Inj 500 ML @ 1000 mls/hr IV. 500 / 500 SIG BOLUS [facility] Rx#:[id number] Oral 900 / 900 120 / 120 Output: Urine 900 / 900 Stool 1 / Other: # Voids 4 0 Date of Last Bowel Movement 10/30/18 10/30/18 Lab - Hematology Results 10/30/18 05:15 WBC 11.0 RBC 2.27 L Hgb 7.3 L Hct 21.6 L MCV 95.0 MCH 32.1 MCHC 33.8 RDW 16.7 Plt Count 159 MPV 12.2 H Lab - Chemistry Results 10/30/18 05:15 Sodium 142 Potassium 3.5 Chloride 109 H Carbon Dioxide 26.0 Anion Gap 7 BUN 27 H Creatinine 1.97 H Estimated GFR 31 L Random Glucose 85 Calcium 9.1 Imaging: ITS Impressions Tube Removal 10/29/18 00:00 CONCLUSION: 1. Uncomplicated Permcath removal. Physical Exam: GENERAL: awake and alert, not in acute distress SKIN: Cool and dry, no generalized rash HEAD: Atraumatic. Normocephalic. No temporal or scalp tenderness. EYES: Pupils equal round and reactive. Scleral icterus. No injection or drainage. No petechia ENT: Nothing abnormal detected NECK: Trachea midline. Supple, nontender, no meningeal signs. Tender in the area where her Conklin was tunnelled previously going to the [facility] CARDIOVASCULAR: HS audible. RESPIRATORY: Clear to auscultation bilaterally. GASTROINTESTINAL: Obese, abdomen soft nontender. MUSCULOSKELETAL: Extremities without clubbing, cyanosis. NEUROLOGICAL: Alert oriented 3. Nonfocal. Psych cooperative IV line sites ok. Assessment and Plan - Plan ESBL E.coli bacteremia likely Conklin catheter infection Discitis was on IV antibiotics using Conklin catheter. CKD not on Hemodialysis yet. Delirium off and on s/b psych Recs: Continue Ertapenem IV (ESBL bacteremia) s/p removal of Conklin catheter. If blood cultures remain negative patient will need reinsertion of Conklin cath to complete 6 weeks of IV antibiotics for discitis. Check MRI L spine without contrast to follow up on Discitis. Follow cultures Monitor progress D/W Dr Briggs Explained plan to the patient
--- NOTE | 2018-10-31 11:13 | P.PNIM ---
Subjective Interval history: Patient states that she was dizzy this morning as she was getting up and was very excited that there is a possibility she can get out of the hospital soon. She really wants to go home although she understands she needs to get stronger. She [facility]. She has no complaint of chest pain or shortness of breath. She has no chills or fever. Physical Exam Vital signs: Last Vital Signs Temp 97.9 F 10/31/18 08:00 Pulse 107 H 10/31/18 08:00 Resp 18 10/31/18 08:00 BP 119/57 L 10/31/18 08:00 Pulse Ox 98 10/31/18 08:00 Intake & Output 10/29/18 10/30/18 10/31/18 11/01/18 06:59 06:59 06:59 06:59 Intake Total 100 / 100 1460 / 1460 1620 / 1620 Output Total 0 / 0 500 / 500 901 / 901 Balance 100 / 100 960 / 960 719 / 719 Weight 119 kg 119.2 kg 117 kg Narrative: GENERAL: Obese elderly female in no acute distress. SKIN: Warm and dry. CARDIOVASCULAR: Normal rate and regular rhythm without murmurs, gallops, or rubs. RESPIRATORY: Clear to auscultation. Breath sounds equal bilaterally. No wheezes , rales, or rhonchi. GASTROINTESTINAL: Abdomen soft, obese, non-tender, nondistended. Bowel Sounds normoactive x4. MUSCULOSKELETAL: Extremities without clubbing, cyanosis, trace to 1+ edema NEUROLOGICAL: Awake and alert to person place and time. Moves all extremities, generalized weakness. Results Labs CBC & Chem 7: 10/30/18 05:15 10/30/18 05:15 Assessment and Plan Plan 62-year-old female with a past medical history significant for hypertension, CKD and hypothyroidism who initially came to the hospital for complaints of lower back pain. Patient had outpatient MRI done which shows possible osteomyelitis of L3-L4. Patient was eventually discharged to [facility] on treatment for discitis using IV antibiotics. She had a change in mental status at [facility] and is found to have ESBL bacteremia. A Conklin catheter was being used. Patient readmitted to the medical floor for treatment. Encephalopathy currently resolved. ESBL E.coli bacteremia: likely Hickmann catheter infection Discitis was being treated with IV antibiotics using Hickmann catheter. - Appreciate input from ID. s/p removal of Conklin catheter. Per ID if repeat blood cultures remain negative, preliminary results at day 4 showed no growth patient will need new catheter to complete 6 weeks of IV Invanz antibiotics for discitis. - MRI spine without contrast to followup with discitis per ID. MRI on 10/09 reviewed. Encephalopathy, medication induced versus anxious process versus behavior. Improved -? Infectious etiology vs behavioral/ delirium -Psychiatry consulted -Continue reassurance and reorientation -Psychiatry recommends increasing Risperdal 0.5 3 times daily -Calm and cooperative today Urinary retention -Continue bethanechol, Flomax -Gamboa catheter removed, monitor bladder scan -If continues with retention, consult urology -Insert gamboa, if needed Chronic kidney disease stage 3 -Avoid nephrotoxic agent -Creatinine near baseline for patient -Monitor renal indicis Anemia, chronic due to CKD - Will plan to transfuse for Hgb <7 -Monitor H&H. 7.3 hb stable yesterday but will recheck again in the morning due to patient's complaint of dizziness. Hx of lymphoma s/p radiation therapy, in remission -Follow-up in the outpatient Hypertension/hypothyroidism -Continue home medications atenolol 50 mg daily, amlodipine 10 mg daily, hydralazine 25 mg 3 times daily Due to patient's complaint of dizziness we will check orthostatics. Decrease amlodipine to 5 mg daily, will repeat hemoglobin the morning. -Synthroid 137 mcg daily -Monitor BP trend DVT prop SCDs, heparin Discharge Planning: We will need to continue 6 more weeks of IV antibiotics. We will have case management look at other options other than CIR per patient request. Progress Note: Quality VTE Deep Vein Thrombosis/Pulmonary Embolism Present on Admission: No
[2018-10-31] MEDS: Temazepam 15 MG Capsule PO PRN (22:59)
[2018-11-01] MEDS: Baclofen 10 MG Tablet PO SCH ×3 (05:17→22:56)
[2018-11-01] MEDS: Levothyroxine 112 MCG Tablet PO SCH (05:17)
[2018-11-01 07:36] LABS: Hemoglobin 7.2 gm/dL (11.6-15.3); Mean Corpuscular HGB Conc 34.3 % (32.0-36.0); Mean Corpuscular Hemoglobin 32.7 pg (27.0-34.0); Mean Corpuscular Volume 95.4 fL (80.0-100.0); Mean Platelet Volume 11.4 fL (7.0-11.0); Platelet Count 169 th/mm3 (150-450); Red Cell Distribution Width 17.3 % (11.6-17.2); White Blood Count 8.8 th/mm3 (4.0-11.0)
[2018-11-01] MEDS: Calcitriol 0.25 MCG Capsule PO SCH (08:36)
[2018-11-01] MEDS: Atenolol 50 MG Tablet PO SCH (08:39)
[2018-11-01] MEDS: Senna/Docusate Sodium 8.6/50 MG Tablet PO SCH ×2 (08:39→22:56)
[2018-11-01] MEDS: hydrALAZINE 25 MG Tablet PO SCH ×3 (08:39→17:33)
[2018-11-01] MEDS: Pantoprazole Sodium 20 MG DR Tablet PO SCH ×2 (08:40→22:55)
[2018-11-01] MEDS: amLODIPine 10 MG Tablet PO SCH (08:40)
[2018-11-01] MEDS: Lidocaine 5% Patch T-DERMAL SCH (08:42)
[2018-11-01 08:48] LABS: Eosinophils 1 % (0-4); Lymphocytes 49 % (9-44); Monocytes 7 % (0-8); Platelet Estimate Normal (Normal); Platelet Morphology Normal (Normal)
[2018-11-01 08:49] LABS: Howell-Jolly Bodies Present; Target Cells 2+
[2018-11-01] MEDS ORDERED: Atenolol 25 MG Tablet PO SCH (11:22)
--- NOTE | 2018-11-01 11:22 | P.PNIM ---
Subjective Interval history: Trying to get stronger. She will prefer to go home however understands that she needs to get stronger. She still would like to try to go home by [place]. [facility] stronger [facility] to be up to go home. She has not had any chills or fever. Overall her pain is controlled. Physical Exam Vital signs: Last Vital Signs Temp 98.4 F 11/01/18 08:00 Pulse 97 H 11/01/18 08:00 Resp 16 11/01/18 08:40 BP 106/53 L 11/01/18 08:00 Pulse Ox 98 11/01/18 08:00 Intake & Output 10/30/18 10/31/18 11/01/18 11/02/18 06:59 06:59 06:59 06:59 Intake Total 1460 / 1460 1620 / 1620 700 / 700 Output Total 500 / 500 901 / 901 900 / 900 Balance 960 / 960 719 / 719 -200 / -200 Weight 119.2 kg 117 kg 110.6 kg Narrative: GENERAL: Obese elderly female in no acute distress. SKIN: Warm and dry. CARDIOVASCULAR: Normal rate and regular rhythm without murmurs, gallops, or rubs. RESPIRATORY: Clear to auscultation. Breath sounds equal bilaterally. No wheezes , rales, or rhonchi. GASTROINTESTINAL: Abdomen soft, obese, non-tender, nondistended. Bowel Sounds normoactive x4. MUSCULOSKELETAL: Extremities without clubbing, cyanosis, trace to 1+ edema NEUROLOGICAL: Awake and alert to person place and time. Moves all extremities, generalized weakness. Results Labs CBC & Chem 7: 11/01/18 06:56 10/30/18 05:15 Procedures Procedures: 11/01 Conklin catheter Assessment and Plan (1) Infection due to ESBL-producing Escherichia coli: Code(s): A49.8 - Other bacterial infections of unspecified site; Z16.12 - Extended spectrum beta lactamase (ESBL) resistance Status: Acute (2) Discitis of lumbar region: Code(s): M46.46 - Discitis, unspecified, lumbar region Status: Acute Onset Date: 10/03/18 Y Plan 62-year-old female with a past medical history significant for hypertension, CKD and hypothyroidism who initially came to the hospital for complaints of lower back pain. Patient had outpatient MRI done which shows possible osteomyelitis of L3-L4. Patient was eventually discharged to [facility] on treatment for discitis using IV antibiotics. She had a change in mental status at [facility] and is found to have ESBL bacteremia. A Conklin catheter was being used. Patient readmitted to the medical floor for treatment. Encephalopathy currently resolved. ESBL E.coli bacteremia: likely Hickmann catheter infection Discitis was being treated with IV antibiotics using Hickmann catheter. - Appreciate input from ID. s/p removal of Conklin catheter.final blood culture has been negative. Will schedule patient for Conklin catheter placement. Infectious disease recommended to complete 6 weeks of IV Invanz antibiotics for discitis. - MRI spine without contrast to followup with discitis per ID. MRI on 10/09 reviewed. Encephalopathy, medication induced versus anxious process versus behavior. Improved -? Infectious etiology vs behavioral/ delirium -Psychiatry consulted -Continue reassurance and reorientation -Psychiatry recommends increasing Risperdal 0.5 3 times daily -Calm and cooperative today Urinary retention -Continue bethanechol, Flomax -Gamboa catheter removed, monitor bladder scan -If continues with retention, consult urology -Insert gamboa, if needed Chronic kidney disease stage 3 -Avoid nephrotoxic agent -Creatinine near baseline for patient -Monitor renal indicis Anemia, chronic due to CKD - Will plan to transfuse for Hgb <7 -Monitor H&H. Repeat hemoglobin 7.2, patient asymptomatic Hx of lymphoma s/p radiation therapy, in remission -Follow-up in the outpatient Hypertension/hypothyroidism -Continue home medications atenolol 50 mg daily, amlodipine 10 mg daily, hydralazine 25 mg 3 times daily Decrease amlodipine to 5 mg daily, decrease atenolol to 25 mg p.o. daily -Synthroid 137 mcg daily -Monitor BP trend DVT prop SCDs, heparin on hold for Conklin catheter Discharge Planning: We will need to continue 6 more weeks of IV antibiotics. Progress Note: Quality VTE Deep Vein Thrombosis/Pulmonary Embolism Present on Admission: No
--- NOTE | 2018-11-01 14:20 | P.DCO ---
Diagnosis (1) Infection due to ESBL-producing Escherichia coli: Status: Acute (2) Discitis of lumbar region: Status: Acute Physical Therapy Order: Evaluate and treat Occupational Therapy Order: Evaluate and treat Home Health Nursing Order: IV medication administration Case Management Consult Case Management Consult-Home Health: Yes I have seen patient Marisel Ontiveros on 11/01/18. My clinical findings support the need for the requested home health care services because: Infection with risk of complications I certify that my clinical findings support that this patient is homebound because: Unsteady gait/balance
[2018-11-02] MEDS: Temazepam 15 MG Capsule PO PRN (04:05)
[2018-11-02] MEDS: Baclofen 10 MG Tablet PO SCH ×2 (06:37→13:12)
[2018-11-02] MEDS: Levothyroxine 112 MCG Tablet PO SCH (06:38)
--- NOTE | 2018-11-02 07:58 | P.DCO ---
Post Hospital Infusion Therapy - Infusion Therapy Location of Infusion Therapy: Home Health Care IV Infusion Order - Patient Information Patient Weight: 119.4 kg - Diagnosis (1) Infection due to ESBL-producing Escherichia coli Code(s): A49.8 - Other bacterial infections of unspecified site; Z16.12 - Extended spectrum beta lactamase (ESBL) resistance (2) Discitis of lumbar region Code(s): M46.46 - Discitis, unspecified, lumbar region - Administer Medication Ertapenem Dose: 1 gram IV Directions: q 24 hours Stop Treatment: 12/19/18 - Additional Information Venous Access: Other (Conklin ) Additional Instructions: [x] Peripheral flush and dressing changes per protocol [x] Implanted port and 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 [] May leave port accessed during therapy. [] May leave peripheral site accessed for duration of therapy. [x] If patient has SOB or respiratory distress, check oxygen saturation. If less than 90% or clinical signs of respiratory distress, administer oxygen at 2 L/min. via nasal cannula and notify physician. [x] Anaphylaxis/Reaction orders: * Stop infusion. * Keep IV line open with saline flush. * Notify physician. * Monitor vital signs every 15 minutes until symptoms resolve. * Check Oxygen saturation; Oxygen at 2 L/min. via nasal cannula if less than 90% or clinical signs of respiratory distress. * Administer diphenhydramine (Benadryl) 25 mg IV STAT, (unless patient has received as pre-med). May repeat once, if necessary. * Solu-Cortef 250 mg IVP over 30-60 seconds, use 100 mg vials for each dissolution. * Epinephrine (1mg/1 ml) 0.3 mg subcutaneously or IVP now with any signs of respiratory distress. * Check with physician for new additional pre-med orders if patient is re- challenged or re-treated. [x] May remove PICC line when treatment complete, after confirming with Physician. [x] If the patient is admitted to the hospital, the ED, or transferred via [facility] , complete transfer form including medication reconciliation order sheet. Weekly Labs: CBC w/diff, Creatinine, LFTs (Hepatic Function Test) (Labs every Monday copy to Dr Kelli Green and Dr Boothe) Additional Information: Please have patient make appointment with Dr Saira Boothe for fup in 3 weeks - Case Management Consult Case Management Consult-IVF: Yes (Abx infusion) - Patient Information Allergies doxycycline Allergy (Severe, Verified 10/24/18 13:12) Anaphylaxis sulfamethoxazole Allergy (Severe, Verified 10/24/18 13:12) Anaphylaxis trimethoprim Allergy (Severe, Verified 10/24/18 13:12) Anaphylaxis
--- NOTE | 2018-11-02 08:02 | P.PNID ---
Subjective Remarks: ID Coverage Ms. Ontiveros is a 62-year-old -[place] female with past medical history significant for hypertension, chronic kidney disease who was not yet on hemodialysis prior to this admission. Patient's past medical history is also significant for recent admission on October 05 for evaluation of lower back pain. Patient had an MRI done as an outpatient which showed possible osteomyelitis of L3 and L4. She also had leukocytosis with elevated ESR and CRP during that visit and so she was sent to the hospital for further evaluation. Patient had an extensive workup during that admission and I saw her as well. She had a CT abdomen pelvis which was negative for an iliopsoas abscess. On October [address]-guided biopsy with IR cultures did not show any growth but patient was on IV Zosyn and vancomycin for several doses prior to this biopsy. On October 09 patient had another lumbar MRI spine which showed changes consistent with discitis at L3-L4 but again no abscess found. Diffuse degenerative changes without central canal stenosis was found and there was a potential left L3 neural foraminal impingement found on that imaging. On October 13 patient underwent a lumbar spine CT which again did not show any new or drainable fluid collections. On October 16 due to persistent altered mental status patient underwent an LP which showed WBC 40, RBCs 5717, glucose 51, total protein 47.5, VDRL nonreactive and cultures no growth to date. Patient was placed on IV ceftriaxone with end date planned for November 30, 2018. Neurosurgery has evaluated the patient during last admission and there was no plan for any surgical intervention. Due to her diagnosis of CKD nephrology recommended no PICC line and Conklin catheter was placed for IV antibiotic infusions. [facility] at [facility] patient had WBC which showed some intracellular bacteria and therefore blood cultures were recommended. Blood cultures ordered were from the Conklin and peripherally and and at this time 3 out of 4 cultures are positive for ESBL E. coli. Patient was started on ertapenem IV and has continued to do well her mentation is improved. Psychiatry has seen the patient and increased her Risperdal. I was called by the hospitalist service and recommended the patient be transferred to the main hospital for removal of the Conklin catheter which is likely the source of the infection and continuing IV ertapenem. Repeat blood cultures have been ordered and so far negative at the present time. Infectious diseases consulted for evaluation and management of E. coli ESBL bacteremia, and infective discitis. Notes reviewed Temps ok D/C plans noted No rash No diarrhea Fup BC all negative Antibiotics: ertapenem IV Lines: Lines ok Past Medical History: reviewed. Allergies/Adverse Reactions: Allergies doxycycline Allergy (Severe, Verified 10/24/18 13:12) Anaphylaxis sulfamethoxazole Allergy (Severe, Verified 10/24/18 13:12) Anaphylaxis trimethoprim Allergy (Severe, Verified 10/24/18 13:12) Anaphylaxis Objective Vital Signs 11/01/18 08:40 11/01/18 12:00 11/01/18 16:00 Temperature 98.7 F 98.3 F Pulse Rate 101 H 92 H Respiratory Rate 16 18 18 Blood Pressure 92/52 L 119/59 L Pulse Oximetry 98 98 11/01/18 20:00 11/01/18 20:20 11/02/18 00:00 Temperature 97.9 F 98.2 F Pulse Rate 101 H 96 H Respiratory Rate 20 18 Blood Pressure 140/60 117/56 L Pulse Oximetry 98 97 95 11/02/18 04:00 Temperature 98.8 F Pulse Rate 108 H Respiratory Rate 20 Blood Pressure 122/60 Pulse Oximetry 95 Intake & Output 11/01/18 11/02/18 11/02/18 18:59 06:59 18:59 Intake Total 580 / 580 720 / 720 100 / 100 Output Total 500 / 500 Balance 580 / 580 720 / 720 -400 / -400 Weight 119.4 kg 119.4 kg Intake: IV 100 / 100 INVanz Inj 1,000 MG In NS Inj 100 / 100 100 ML @ 200 mls/hr IV.SIG Q24H [facility] Rx#:[id number] Oral 480 / 480 720 / 720 100 / 100 Output: Urine 500 / 500 Other: # Voids 1 1 1 Date of Last Bowel Movement 10/30/18 # Bowel Movements 0 0 Lab - Hematology Results 11/01/18 06:56 WBC 8.8 RBC 2.20 L Hgb 7.2 L Hct 21.0 L MCV 95.4 MCH 32.7 MCHC 34.3 RDW 17.3 H Plt Count 169 MPV 11.4 H Prelim Diff (Auto) Manual diff required WBC Differential Manual diff final Seg Neuts % (Manual) 40 Band Neuts % (Manual) 1 Lymphocytes % (Manual) 49 H Monocytes % (Manual) 7 Eosinophils % (Manual) 1 Basophils % (Manual) 2 Abs Neuts (Manual) 3.6 Differential Comment . Platelet Estimate Normal Platelet Morphology Normal Target Cells 2+ H Red-[place] Bodies Present H Imaging: ITS Impressions Tube Removal 10/29/18 00:00 CONCLUSION: 1. Uncomplicated Permcath removal. Physical Exam: GENERAL: awake and alert, not in acute distress SKIN: Cool and dry, no generalized rash HEAD: Atraumatic. Normocephalic. No temporal or scalp tenderness. EYES: Pupils equal round and reactive. Scleral icterus. No injection or drainage. No petechia ENT: Nothing abnormal detected NECK: Trachea midline. Supple, nontender, no meningeal signs. Tender in the area where her Conklin was tunnelled previously going to the [facility] CARDIOVASCULAR: HS audible. RESPIRATORY: Clear to auscultation bilaterally. GASTROINTESTINAL: Obese, abdomen soft nontender. MUSCULOSKELETAL: Extremities without clubbing, cyanosis. NEUROLOGICAL: Alert oriented 3. Nonfocal. Psych cooperative IV line sites ok. Assessment and Plan (1) Infection due to ESBL-producing Escherichia coli Status: Acute Code(s): A49.8 - Other bacterial infections of unspecified site ; Z16.12 - Extended spectrum beta lactamase (ESBL) resistance (2) Discitis of lumbar region Status: Acute Code(s): M46.46 - Discitis, unspecified, lumbar region - Plan ESBL E.coli bacteremia likely Conklin catheter infection Discitis was on IV antibiotics using Conklin catheter. CKD not on Hemodialysis yet. Delirium off and on s/b psych Recs: Continue Ertapenem IV (ESBL bacteremia) For Conklin today To go home on D/C I filled out Abx form Will have patient followup with Dr joyce Boothe
[2018-11-02] MEDS ORDERED: fentaNYL Citrate Inj 100 MCG/2 ML Ampul ONE ×2 (10:02→10:35)
[2018-11-02] MEDS: Lidocaine 5% Patch T-DERMAL SCH (10:16)
[2018-11-02] MEDS: amLODIPine 10 MG Tablet PO SCH (10:16)
[2018-11-02] MEDS: hydrALAZINE 25 MG Tablet PO SCH ×2 (10:16→13:04)
[2018-11-02] MEDS: Senna/Docusate Sodium 8.6/50 MG Tablet PO SCH (10:16)
[2018-11-02] MEDS: Pantoprazole Sodium 20 MG DR Tablet PO SCH (10:17)
[2018-11-02] MEDS: Calcitriol 0.25 MCG Capsule PO SCH (10:17)
[2018-11-02] MEDS ORDERED: Lidocaine 1%/Epinephrine 1:100,000 Inj 30 ML Vial ONE (10:19)
[2018-11-02] MEDS ORDERED: Heparin Central Flush 100 UNIT/ML 5 ML Vial IV.FLUSH ONE (10:19)
[2018-11-02] MEDS ORDERED: Sodium Chlor 0.9% Inj 250 ML ONE (10:20)
--- NOTE | 2018-11-02 10:27 | P.PNIM ---
Subjective Interval history: Declining to go to a snf facility states that her is at home 12/06 with her would like to go home with home health care. Reports no pain. Happy to be going home for the holidays. Physical Exam Vital signs: Last Vital Signs Temp 98.6 F 11/02/18 08:00 Pulse 99 H 11/02/18 08:00 Resp 18 11/02/18 08:00 BP 128/58 L 11/02/18 08:00 Pulse Ox 98 11/02/18 08:00 Intake & Output 10/31/18 11/01/18 11/02/18 11/03/18 06:59 06:59 06:59 06:59 Intake Total 1620 / 1620 700 / 700 1300 / 1300 100 / 100 Output Total 901 / 901 900 / 900 500 / 500 Balance 719 / 719 -200 / -200 1300 / 1300 -400 / -400 Weight 117 kg 110.6 kg 119.4 kg 119.4 kg Narrative: GENERAL: Obese elderly female in no acute distress. SKIN: Warm and dry. CARDIOVASCULAR: Normal rate and regular rhythm RESPIRATORY: Clear to auscultation. Breath sounds equal bilaterally. No wheezes , rales, or rhonchi. GASTROINTESTINAL: Abdomen soft, obese, non-tender, nondistended. Bowel Sounds normoactive x4. MUSCULOSKELETAL: Extremities without clubbing, cyanosis, trace to 1+ edema NEUROLOGICAL: Awake and alert to person place and time. Moves all extremities, generalized weakness. Results Labs CBC & Chem 7: 11/01/18 06:56 10/30/18 05:15 Procedures Procedures: 11/01 Conklin catheter Assessment and Plan (1) Infection due to ESBL-producing Escherichia coli: Code(s): A49.8 - Other bacterial infections of unspecified site; Z16.12 - Extended spectrum beta lactamase (ESBL) resistance Status: Acute (2) Discitis of lumbar region: Code(s): M46.46 - Discitis, unspecified, lumbar region Status: Acute Onset Date: 10/03/18 Y Plan 62-year-old female with a past medical history significant for hypertension, CKD and hypothyroidism who initially came to the hospital for complaints of lower back pain. Patient had outpatient MRI done which shows possible osteomyelitis of L3-L4. Patient was eventually discharged to [facility] on treatment for discitis using IV antibiotics. She had a change in mental status at [facility] and is found to have ESBL bacteremia. A Conklin catheter was being used. Patient readmitted to the medical floor for treatment. Encephalopathy currently resolved. ESBL E.coli bacteremia: likely Hickmann catheter infection Discitis was being treated with IV antibiotics using Hickmann catheter. - Appreciate input from ID. s/p removal of Conklin catheter.final blood culture has been negative. Will schedule patient for Conklin catheter placement. Infectious disease recommended to complete 6 weeks of IV Invanz antibiotics for discitis. - MRI spine without contrast to followup with discitis per ID. MRI on 10/09 reviewed. Encephalopathy, medication induced versus anxious process versus behavior. Improved -? Infectious etiology vs behavioral/ delirium -Psychiatry consulted -Continue reassurance and reorientation -Psychiatry recommends increasing Risperdal 0.5 3 times daily -Calm and cooperative today Urinary retention -Continue bethanechol, Flomax -Gamboa catheter removed, monitor bladder scan -If continues with retention, consult urology -Insert gamboa, if needed Chronic kidney disease stage 3 -Avoid nephrotoxic agent -Creatinine near baseline for patient -Monitor renal indicis Anemia, chronic due to CKD - Will plan to transfuse for Hgb <7 -Monitor H&H. Repeat hemoglobin 7.2 yesterday, patient asymptomatic Hx of lymphoma s/p radiation therapy, in remission -Follow-up in the outpatient Hypertension/hypothyroidism -Continue home medications atenolol 50 mg daily, amlodipine 10 mg daily, hydralazine 25 mg 3 times daily Decrease amlodipine to 5 mg daily, decrease atenolol to 25 mg p.o. daily -Synthroid 137 mcg daily DVT prop SCDs, heparin on hold for Conklin catheter Discharge Planning: We will need to continue 6 more weeks of IV antibiotics. Insurance has not approved for patient to return to inpatient rehab, patient would prefer to go home with home health care. Discharge to home with home health care if home health care and IV antibiotics and be arranged today. Progress Note: Quality VTE Deep Vein Thrombosis/Pulmonary Embolism Present on Admission: No
--- NOTE | 2018-11-02 10:45 | P.DS ---
DS: Providers Date of admission: 10/28/18 12:55 Primary care physician: UNKNOWN Consults: 10/28/18 12:00 Consult to Infectious Diseases Routine Consulting Provider: Oliva Green Preferred Form Drafter:: Oliva Green Patient known to:: Oliva Green Reason for Consultation: ESBL EColi bacteremia. Patient is known to you. Thank you. Notified:: Service Spoke with:: EVELYNE Date Notified:: 10/28/18 Time Notified:: 14:41 Comments:: Please consult now Ordering Provider: SAGE 10/29/18 12:58 HUB Only Consult Order Routine Consulting Provider: Vinicius Colvin 10/29/18 22:52 Consult to Rehab Medicine Routine Consulting Provider: Abi Fitzgerald Reason for Consultation: Physical deconditioning. Impaired ADLs. Patient recently discharged from [facility]. Notified:: Service Spoke with:: elisha Date Notified:: 10/30/18 Time Notified:: 01:30 Ordering Provider: JULIA Brief History from admission: Patient is a 62-year-old with a past medical history significant for hypertension, CKD and hypothyroidism presents to the emergency department for the evaluation of lower back pain. Patient had outpatient MRI done which shows possible osteomyelitis of L3-L4. Patient had leukocytosis with elevated ESR and CRP. Extensive workup was done with patient 10/05 CT a/p neg for iliopsoas abscess. 10/05 S/p CT guided bx with IR, cx with no growth. 10/09 Lumbar MRI of the spine showed changes consistent with discitis at L3-L4 without abscess. Diffuse degenerative changes without central canal stenosis. Potential left L3 neural foraminal impingement 10/[address] Discitis changes at L3/L4 again noted. The disc space narrowing and vertebral body endplate irregularity is mostly towards the left. No significant change from the prior MRI. No perceptible drainable fluid collection. 10/16 LP done CSF 40, RBC 5717, Glc 51, TP 47.5, VDRL - non reactive, HSV negative and Cx NGTD Infectious disease has been following the patient and placed patient on IV ceftriaxone end date 11/30/18 Neurosurgery also followed the patient, no surgical intervention recommended Patient's hospitalization was complicated by sepsis pneumonia, acute metabolic encephalopathy, patient was ruled out with meningeal encephalitis. Chest x-ray showed questionable subtle small infiltrate on the medial right upper lobe. Her metabolic encephalopathy possible from drug ingestion. CT of the head negative, no evidence of acute infarct hemorrhage or mass edema. Narcotics were held. Neurologist have seen the patient and started her on Risperdal and Restoril to help her sleep. Psychiatry has also followed the patient deeming her to have no capacity during the time of exam. She was started on Zyprexa but later discontinued. Patient currently has urinary retention and was started on bethanechol and Flomax. Caputo catheter was inserted prior to coming to rehabilitation. Patient got admitted to [facility] for comprehensive rehabilitation. Caputo catheter was discontinued. Continues to have on and off urinary retention. 10/25/18 Patient was at [facility] and abnormality with the blood smear has been reported showing intracellular bacteria. Blood cultures were recommended. Blood cultures ordered Via Conklin, and peripherally. Blood cultures from the line showed positive for E. coli ESBL, gram-negative rods. Her IV antibiotics was switched to ertapenem. Patient continues to have on and off confusion, delirium. Psychiatry has seen the patient and increased her Risperdal. Patient will be admitted to inpatient transferred from [facility] for Conklin catheter to be taken out due to bacteremia. Patient seen and examined today. Reports she is doing okay. Confused but more cooperative. Patient states it is 2018. Does not know what city or states she is at. States she is feeling a lot better. States she will participate with physical therapy. Denies SOB/ dyspnea. Denies chest pain, palpitations, headaches, dizziness. Denies fevers, chills, n/v/d. States she was catheterized last night she was full and has the urge to void but unable to. We will Poss[address] Caputo catheter for now in the inpatient setting. DS: Diagnosis Discharge Diagnosis (1) Infection due to ESBL-producing Escherichia coli: Status: Acute (2) Discitis of lumbar region: Status: Acute DS: Summary 62-year-old white female with a past medical history for hypertension, chronic kidney disease stage III and hypothyroidism who was transferred from [facility] due to change in mental status and was found to have ESBL bacteremia from a Conklin catheter that was being used. Patient was readmitted for acute septic encephalopathy that resolved with treatment. IV Invanz was initiated. Repeat blood cultures show no growth. Previous Conklin catheter was removed and a new catheter was inserted for continued treatment with antibiotics for 6 weeks. Patient chronic kidney disease stage III has been stable on medication treatment. She would prefer at this time to return home with home health care versus going to a group home facility. For her osteomyelitis of L3-L4 she is to follow-up with primary care physician and consideration for repeat MRI of the spine after completion of the antibiotics course for follow-up. She is to continue with home health care physical therapy. Time Spent with Patient Total time spent providing and/or coordinating discharge services: Less than 30 minutes Quality: VTE Deep Vein Thrombosis/Pulmonary Embolism Present on Admission: No Exam Narrative Exam Narrative: GENERAL: This is a well-nourished, obese, well-developed patient , in no apparent distress. CARDIOVASCULAR: Regular rate and rhythm RESPIRATORY: Clear to auscultation. Breath sounds equal bilaterally. No wheezes , rales, or rhonchi. GASTROINTESTINAL: Abdomen soft, non-tender, obese, nondistended. Normal active bowel sounds MUSCULOSKELETAL: Extremities without clubbing, cyanosis, trace edema NEURO: Alert & Oriented x4 to person, place, time, situation. Generalized weakness Results Procedures completed during hospitalization: 11/02 Conklin catheter Impressions ITS Impressions Tube Removal 10/29/18 00:00 CONCLUSION: 1. Uncomplicated Permcath removal. Discharge Plan Discharge Disposition Patient Disposition: W/Home Health Service Discharge Condition Condition: Good Discharge Order Discharge Orders: Discharge Order (Routine); Ordered 11/02/18 Ordered By: Maeve Briggs Discharge Details Discharge Comment: DC after conklin catheter and after HHC and IV infusion arranged Physicians Team Primary Care Provider: UNKNOWN, Attending Provider: Maeve Briggs Other Providers: Oliva Green ; Vinicius Colvin ; Abi Fitzgerald Rxs /Orders / Referrals /Forms Prescriptions: New lactulose 20 gram/30 mL Solution 30 ml PO DAILY PRN (Reason: Severe Consitipation) Qty: 100 RF: 0 amlodipine [Norvasc] 10 mg Tablet 5 mg PO DAILY Qty: 30 RF: 0 ertapenem [Invanz] 1 gram recon soln 1 g IV DAILY Qty: 42 RF: 0 risperidone 0.5 mg Tablet 0.5 mg PO TID Qty: 15 RF: 0 atenolol 50 mg Tablet 25 mg PO DAILY Qty: 30 RF: 0 Continue clonidine HCl [Catapres] 0.1 mg Tablet 0.1 mg PO Q6H PRN (Reason: SBP>180 OR DBP >95) RF: 0 bethanechol chloride [Urecholine] 10 mg Tablet 10 mg PO TID RF: 0 sennosides-docusate sodium [Senna Plus] 8.6-50 mg Tablet 1 tab PO BID RF: 0 cyanocobalamin (vitamin B-12) [Vitamin B-12] 1,000 mcg Tablet 1,000 mcg PO DAILY RF: 0 thiamine HCl (vitamin B1) 100 mg Tablet 100 mg PO BID RF: 0 hydralazine 25 mg Tablet 25 mg PO TID RF: 0 levothyroxine 25 mcg Tablet 25 mcg PO DAILY@0600 RF: 0 pantoprazole [Protonix] 20 mg Tablet,Delayed Release (Dr/Ec) 20 mg PO BID RF: 0 temazepam 15 mg Capsule 15 mg PO DAILY@2200 PRN (Reason: Insomnia) RF: 0 tamsulosin 0.4 mg Capsule 0.4 mg PO DAILY RF: 0 baclofen 10 mg Tablet 5 mg PO Q8HR RF: 0 lidocaine [Lidoderm] 5 % Adhesive Patch,Medicated 1 patch Transdermal DAILY RF: 0 megestrol 40 mg Tablet 40 mg PO DAILY RF: 0 levothyroxine [Synthroid] 112 mcg Tablet 112 mcg PO DAILY@0600 RF: 0 calcitriol 0.25 mcg Capsule 0.25 mcg PO DAILY RF: 0 Discontinued ceftriaxone 2 gram Recon Soln 2,000 mg IV Q24H Qty: 0 RF: 0 heparin (porcine) 10,000 unit/mL Solution 5,000 units subcut Q12HR RF: 0 atenolol 50 mg Tablet 75 mg PO DAILY RF: 0 risperidone 0.5 mg Tablet 0.5 mg PO DAILY@2200 RF: 0 risperidone 0.5 mg Tablet 0.5 mg PO DAILY@0000 PRN (Reason: See Label Comments) RF: 0 amlodipine 10 mg Tablet 10 mg PO DAILY RF: 0 Ambulatory Orders / Order Sets / DME: Basic Metabolic Panel (Routine) Timeframe: 1 Week Location: Determined by Patient Ordered By: Maeve Briggs Complete Blood Count with Diff (Routine) Timeframe: 1 Week Location: Determined by Patient Ordered By: Maeve Briggs Referrals: Do Hermelindo Rodriguez MD [Family Provider] - See Instructions ( Please call the physician's office to book the appointment to be seen within 1 week. ) Saira Boothe MD [Physician] - See Instructions ( Please call the physician' s office to book the appointment to be seen within 2 to 3 weeks.) UNKNOWN, [Primary Care Provider] - See Instructions Post Discharge Care Plan Care Plan Goals: Your Health Problems: ESBL E coli bacteremia, discitis Goals to Promote Your Health: * To prevent worsening of your condition * To maintain your health at the optimal level Directions to Meet Your Goals: * Take your medications as prescribed * Follow your dietary instruction * Follow activity as directed * Keep your appointments as scheduled * Take your immunizations and boosters as scheduled * If your symptoms worsen call your PCP * If no PCP go to Urgent Care or Emergency Room Smoking is dangerous to your health. Avoid second hand smoke. You may reach the 24-hour crisis hotline for domestic abuse at .
--- NOTE | 2018-11-02 11:13 | P.RAD ---
Post Procedure Progress Note - Pre Procedure Diagnosis (1) Infection due to ESBL-producing Escherichia coli - Post Procedure Diagnosis (1) Infection due to ESBL-producing Escherichia coli - Procedure Information Procedure Date: 11/02/18 Supervising Radiologist: Ajit Bell MD Anesthesia: Conscious Sedation - Plan of Activity Patient to Unit: Nursing Unit Patient Condition: Fair See PACS Report for procedural detail/treatment. [facility] Radiology Procedures right Internal Jugular Tunneled Central Line Placement Device: single lumen
--- NOTE | 2018-11-02 14:17 | P.CONREH ---
History of Present Illness Primary Care Provider: UNKNOWN [facility], [facility] - History History Provided By: Patient - Medical History Medical History: Medical History (Last Reviewed 11/02/18 @ 10:59 by Ilana Mishra) History of infection due to ESBL Escherichia coli Onset Date: ~10/25/18 CKD (chronic kidney disease) Delirium Hodgkins lymphoma Hyperlipemia Hypertension Hypothyroidism - Surgical History Surgical History: Surgical History (Last Reviewed 11/02/18 @ 10:59 by Ilana Mishra) History of cholecystectomy History of knee replacement, total Hx of splenectomy Hx of thyroidectomy - Family History Family History: Family History (Last Reviewed 10/31/18 @ 08:59 by Elsi Khan) Other Coronary artery disease - Tobacco History Second Hand Smoke Exposure: Yes Tobacco Use In Past 30 Days: No Smoking Status: Former smoker Tobacco Type: Cigarettes Packs Per Day: 1 Years Smoked: 13 - Alcohol History How Often Do You Have a Drink Containing Alcohol: Never - Substance Use History Substance History: No History of Abuse - Immunization History Tetanus Immunization: >5 Years Hx Influenza Vaccine This Season: No Medications and Allergies Active Medications: Active Medications Acetaminophen (Tylenol) 650 mg PO Q4H PRN PRN Reason: Temp > 100.4, MICHEL, pain 1-3 Hydrocodone Bitart/Acetaminophen ([place] 5/325) 1 tab PO Q4H PRN PRN Reason: Pain Scale 5 To 10 Last Admin: 11/02/18 06:40 Dose: 1 tab Al Hydroxide/Mg Hydroxide (Milk Of Barbi Khanq) 30 ml PO Q12H PRN PRN Reason: Mild Constipation Amlodipine Besylate (Norvasc) 5 mg PO DAILY [facility] Last Admin: 11/02/18 10:16 Dose: Not Given Atenolol (Tenormin) 25 mg PO DAILY [facility] Last Admin: 11/02/18 10:17 Dose: Not Given Baclofen (Lioresal) 5 mg PO Q8HR [facility] Last Admin: 11/02/18 13:12 Dose: 5 mg Bethanechol Chloride (Urecholine) 10 mg PO TID [facility] Last Admin: 11/02/18 13:04 Dose: Not Given Bisacodyl (Dulcolax Supp) 10 mg RECTAL DAILY PRN PRN Reason: SEVERE CONSITIPATION Calcitriol (Rocaltrol) 0.25 mcg PO DAILY [facility] Last Admin: 12/14/18 10:17 Dose: Not Given Clonidine HCl (Catapres) 0.1 mg PO Q6H PRN PRN Reason: SBP>180 OR DBP >95 Cyanocobalamin (Vitamin B12) 1,000 mcg PO DAILY [facility] Last Admin: 11/02/18 10:17 Dose: Not Given Hydralazine HCl (Apresoline) 25 mg PO TID [facility] Last Admin: 11/02/18 13:04 Dose: Not Given Ertapenem 1,000 mg/ Sodium (Chloride) 100 mls @ 200 mls/hr IV.SIG Q24H [facility] Last Infusion: 11/01/18 17:10 Dose: Infused Lactulose (Lactulose Liq) 30 ml PO DAILY PRN PRN Reason: SEVERE CONSITIPATION Levothyroxine Sodium (Synthroid) 25 mcg PO DAILY@0600 [facility] Last Admin: 11/02/18 06:38 Dose: 25 mcg Levothyroxine Sodium (Synthroid) 112 mcg PO DAILY@0600 [facility] Last Admin: 11/02/18 06:38 Dose: 112 mcg Lidocaine HCl (Lidoderm 5% Patch.12 Hr) 1 patch T-DERMAL DAILY [facility] Last Admin: 11/02/18 10:16 Dose: Not Given Megestrol Acetate (Megace) 40 mg PO DAILY [facility] Last Admin: 11/02/18 10:16 Dose: Not Given Miscellaneous (Pill Splitter) 1 each OTHER UNSCH [facility] Naloxone HCl (Narcan Inj) 0.4 mg IV.PUSH UNSCH PRN PRN Reason: SEE LABEL COMMENTS Ondansetron HCl (Zofran Inj) 4 mg IV.PUSH Q6H PRN PRN Reason: NAUSEA OR VOMITING Pantoprazole Sodium (Protonix) 20 mg PO BID [facility] Last Admin: 11/02/18 10:17 Dose: Not Given Patch Removal (Remove Old Patch) 1 each T-DERMAL HS [facility] Last Admin: 11/01/18 23:00 Dose: 1 each Risperidone (Risperdal) 0.5 mg PO TID [facility] Last Admin: 11/02/18 13:04 Dose: Not Given Senna/Docusate Sodium (Joyce-Colace) 1 tab PO BID [facility] Last Admin: 11/02/18 10:16 Dose: Not Given Sennosides (Senokot) 17.2 mg PO Q12H PRN PRN Reason: Moderate Constipation Sodium Chloride (Ns Flush) 2 ml IV.FLUSH BID [facility] Last Admin: 11/02/18 10:16 Dose: Not Given Sodium Chloride (Ns Flush) 2 ml IV.FLUSH PRN PRN PRN Reason: FLUSH AFTER USING IV ACCESS Tamsulosin HCl (Flomax) 0.4 mg PO DAILY [facility] Last Admin: 11/02/18 10:16 Dose: Not Given Temazepam (Restoril) 15 mg PO DAILY@2200 PRN PRN Reason: Insomnia Last Admin: 11/02/18 04:05 Dose: 15 mg Thiamine HCl (Vitamin B1) 100 mg PO BID [facility] Last Admin: 11/02/18 10:17 Dose: Not Given Allergies Allergy/AdvReac Type Severity Reaction Status Date / Time doxycycline Allergy Severe Anaphylaxis Verified 10/24/18 13:12 sulfamethoxazole Allergy Severe Anaphylaxis Verified 10/24/18 13:12 trimethoprim Allergy Severe Anaphylaxis Verified 10/24/18 13:12 Home Medications Medication Instructions Recorded Confirmed Type calcitriol 0.25 mcg PO DAILY 07/05/18 10/24/18 History Exam - Physical Examination Vital Signs / I&O: Vital Signs 11/01/18 16:00 11/01/18 20:00 11/01/18 20:20 Temperature 98.3 F 97.9 F Pulse Rate 92 H 101 H Respiratory Rate 18 20 Blood Pressure 119/59 L 140/60 Pulse Oximetry 98 98 97 11/02/18 00:00 11/02/18 04:00 11/02/18 08:00 Temperature 98.2 F 98.8 F 98.6 F Pulse Rate 96 H 108 H 99 H Respiratory Rate 18 20 18 Blood Pressure 117/56 L 122/60 128/58 L Pulse Oximetry 95 95 98 11/02/18 11:00 11/02/18 11:07 11/02/18 11:15 Temperature 98.5 F 98.5 F Pulse Rate 111 H 111 H 104 H Respiratory Rate 18 18 18 Blood Pressure 110/55 L 110/55 L 135/55 L Pulse Oximetry 96 96 94 L 11/02/18 12:00 Temperature 98.6 F Pulse Rate 99 H Respiratory Rate 18 Blood Pressure 158/68 H Pulse Oximetry 96 Intake & Output 11/01/18 11/02/18 11/02/18 18:59 06:59 18:59 Intake Total 580 / 580 720 / 720 100 / 100 Output Total 500 / 500 Balance 580 / 580 720 / 720 -400 / -400 Weight 119.4 kg 119.4 kg Intake: IV 100 / 100 INVanz Inj 1,000 MG In NS Inj 100 / 100 100 ML @ 200 mls/hr IV.SIG Q24H [facility] Rx#:[id number] Oral 480 / 480 720 / 720 100 / 100 Output: Urine 500 / 500 Other: # Voids 1 1 1 Date of Last Bowel Movement 10/30/18 10/31/18 # Bowel Movements 0 0 Intake & Output 10/31/18 11/01/18 11/02/18 11/03/18 06:59 06:59 06:59 06:59 Intake Total 1620 / 1620 700 / 700 1300 / 1300 100 / 100 Output Total 901 / 901 900 / 900 500 / 500 Balance 719 / 719 -200 / -200 1300 / 1300 -400 / -400 Weight 117 kg 110.6 kg 119.4 kg 119.4 kg Date of Last Bowel Movement: 10/31/18 Results - Labs CBC & Chem 7: 11/01/18 06:56 10/30/18 05:15
--- NOTE | 2018-11-02 16:08 | IR ---
EXAM DATE: 11/02/2018 11:17 AM EST AGE/SEX: 62 years / Female INDICATIONS: Patient presents with discitis in need of Conklin central venous catheter placement for medication administration. CLINICAL DATA: This is the patient's subsequent encounter. Patient reports that signs and symptoms h ave been present for 4 - 6 days and indicates a pain score of 5/10. MEDICAL/SURGICAL HISTORY: . CKD ,Hodgkin's lymphoma, Hyperlipemia, Hypertension, Hypothyroidism . . Cholecystectomy, Knee replacement, Splenectomy. COMPARISON: No prior exams available for comparison. FLUORO TIME (min): 0.3 IMAGE SERIES: 2 MEDICATION(S): 3 mg midazolam (Versed) IV 150 mcg fentanyl (Sublimaze) IV Vancomycin within 2 hrs of procedure, Ancef (or alternative) within 1 hr of procedure. DEVICE(S): Right 6.6fr Conklin . . PROCEDURE: 1. Ultrasound-guided puncture of the prescribed vein. 2. Fluoroscopic guidance. 3. Conklin catheter placement 4. Conscious sedation with continuous EKG and oximetry monitoring. The risks, benefits and alternatives to the procedure were explained and verbal and written consent w as obtained. The site was prepped in sterile fashion. Full sterile technique was used, including ca p, mask, sterile gloves and gown and a large sterile sheet. Hand hygiene and 2% chlorhexidine Betadi ne was utilized per protocol for cutaneous antisepsis with appropriate dry time for site. Sterile ge l and sterile probe cover were utilized for ultrasound guidance. The skin and subcutaneous tissues w ere infiltrated with local anesthetic solution. With ultrasound and fluoroscopic guidance a dermatotomy was created in the supraclavicular region. A micropuncture set was used to access to the prescribed vein and serial dilatation was performed to a ccept a Conklin catheter. A subcutaneous tunnel was created and in antegrade fashion the catheter wa s pulled through the tunnel, cut to the appropriate length and place through the sheath. The cathete r was locked with heparin and sutured in place. Conscious sedation was performed with the prescribed dosages and duration as above in the presence of an independent trained radiology nurse to assist in the monitoring of the patient. EKG and oximetry remained stable throughout the procedure. The patient tolerated the procedure well and there were no complications. The patient was sent to post anesthesia recovery in stable condition. CONCLUSION: 1. Uncomplicated Conklin catheter placement as above. Electronically signed by: Ajit Bell MD Board Certified Radiologist 11/02/2018 4:06 PM EST
== END 2018-11-02 15:01 | disposition home health service (06) ==
LOC: N04 12:55
PROVIDERS: ADMIT Family Medicine; ATTEND Family Medicine
DX: R26.81 Unsteadiness on feet; Z16.12 Extended spectrum beta lactamase (ESBL) resistance; Z68.37 Body mass index [BMI] 37.0-37.9, adult; Z88.1 Allergy status to other antibiotic agents; N18.3 Chronic kidney disease, stage 3 (moderate); Z82.49 Family history of ischemic heart disease and other diseases of the circulatory system; I12.9 Hypertensive chronic kidney disease with stage 1 through stage 4 chronic kidney disease, or unspecified chronic kidney disease; R33.9 Retention of urine, unspecified; M46.26 Osteomyelitis of vertebra, lumbar region; E66.9 Obesity, unspecified; B96.20 Unspecified Escherichia coli [E. coli] as the cause of diseases classified elsewhere; T80.219A Unspecified infection due to central venous catheter, initial encounter; E89.0 Postprocedural hypothyroidism; E78.5 Hyperlipidemia, unspecified; Z88.2 Allergy status to sulfonamides; R42 Dizziness and giddiness; Z96.659 Presence of unspecified artificial knee joint; Z87.891 Personal history of nicotine dependence; R53.1 Weakness; Y84.8 Other medical procedures as the cause of abnormal reaction of the patient, or of later complication, without mention of misadventure at the time of the procedure; R41.0 Disorientation, unspecified; Z90.81 Acquired absence of spleen; Z85.71 Personal history of Hodgkin lymphoma; G93.41 Metabolic encephalopathy; D63.1 Anemia in chronic kidney disease; Z90.49 Acquired absence of other specified parts of digestive tract; M46.46 Discitis, unspecified, lumbar region; Z92.3 Personal history of irradiation